=== PATIENT | female | born 1950 | race Caucasian/White ===

== ENCOUNTER → 2019-10-15 15:49 | Outpatient (BNVA) | payer MEDICARE, SELFPAY | PROVIDERS: Family Provider Family Medicine; PCP Family Medicine; Visit Provider Family Medicine | DX: K50.90 Crohn's disease, unspecified, without complications (principal); E55.9 Vitamin D deficiency, unspecified; E78.5 Hyperlipidemia, unspecified; I10 Essential (primary) hypertension | CPT/HCPCS: 80053; 80061; 82306; 84443; 85025 ==

== ENCOUNTER 2019-11-06 08:41 | Outpatient (CLI) | payer MEDICARE, SELFPAY ==
--- NOTE | 2019-11-06 08:49 | US_ITS ---
WS: [id number] ADDITIONAL VIEWS RIGHT BREAST RIGHT breast ultrasound, limited HISTORY: ABNORMAL MAMMOGRAM COMPARISON: 09/17/2019, 09/11/2018 and 09/10/2017 Compression views right CC and MLO projection. True ML also submitted. Asymmetry in the medial RIGHT breast does not persist. There is a focal area of increased density pos terior to the nipple on the MLO projection which will be further evaluated by ultrasound. RIGHT breast ultrasound, limited. Ultrasound is directed posterior to the nipple and at 3:00 and 9:00. There is dense fibroglandular ti ssue but no mass identified. US/US breast RT limited* [id number] IMPRESSION: BI-RADS: 2-Benign FOLLOW-UP: 1 Year Follow-up
== END 2019-11-06 08:42 | disposition home or self-care (01) ==
LOC: RADSHAW 08:45
PROVIDERS: Family Provider Family Medicine; PCP Family Medicine; Visit Provider Family Medicine
DX: R92.8 Other abnormal and inconclusive findings on diagnostic imaging of breast (principal)
CPT/HCPCS: 76642; 77065

== ENCOUNTER 2019-11-22 15:35 | Emergency (ER) | payer MEDICARE, SELFPAY ==
[2019-11-22 15:39] VITALS: BP 144/76; PULSE 138; RESP 16; TEMP 38.7; O2SAT 94
--- NOTE | 2019-11-22 15:49 | XR_ITS ---
WS: [id number] CHEST XRAY TECHNIQUE: Portable chest. CLINICAL INFORMATION: cough COMPARISON: None. FINDINGS: Heart: Normal cardiac silhouette. Lungs: Lungs are clear. No consolidation or pleural effusion. Moderate chronic emphysematous changes. Bones: Thoracic curve convex left. XR/XR chest 1V portable [id number] IMPRESSION: No acute chest findings
[2019-11-22 15:55] VITALS: BP 128/75; PULSE 137; RESP 18; O2SAT 95
--- NOTE | 2019-11-22 15:55 | W.ED.GENADLT ---
HPI - General Adult General: Chief complaint: Fever Stated complaint: cough Time Seen by Provider: 11/22/19 15:48 History of Present Illness: HPI narrative: Fever and body aches since yesterday. Patient says she is been exercising doing fine but started feeling bad yesterday. Is taking fluids well. Took Tylenol last night nothing today. Denies shortness of breath palpitation or heart pain. Does have a history of COPD MD complaint: Fever Onset (ago): hour(s) Associated symptoms: Reports cough and fevers/chills; Deny chest pain, dyspnea, headache(s), nausea, rash, short of breath or vomiting Review of Systems Const: Reports: fever, chills and body aches Eyes: Denies: change in vision or blurry vision ENMT: Denies: throat pain or nasal congestion Card: Denies: chest pain or shortness of breath on exertion Resp: Reports: non-productive cough; Denies: shortness of breath or productive cough GI: Denies: abdominal pain, nausea or vomiting Musc: Denies: extremity pain Skin/Breast: Denies: rash Neuro: Denies: headache Psych: Denies: anxiety or depression Moi/Lymph: Denies: easy bruising PFSH ED PFSH: Social History Smoking and tobacco status: former smoker Alcohol intake: current Alcohol intake frequency: holidays/special occasions only Physical Exam Const: COMMON NORMALS: no apparent distress, average body habitus and oriented x3 HENMT: COMMON NORMALS: normocephalic HEAD & SCALP: normal to inspection and normocephalic FACE & SINUS: normal facial exam Eye: COMMON NORMALS: conjunctivae normal GENERAL EYE: normal appearance of both eyes CONJUNCTIVA: Yes conjunctivae normal Neck/C-Spine: COMMON NORMALS: no JVD Chest: COMMONS NORMALS: inspection of chest normal Resp: COMMON NORMALS: normal respiratory effort and percussion normal AUSCULTATION: diminished lung sounds PERCUSSION: percussion normal Cardio: COMMON NORMALS: no JVD, regular rate and regular rhythm RATE: regular rate RHYTHM: regular rhythm GI: COMMON NORMALS: normal to inspection, nondistended, normoactive bowel sounds Extremity: COMMON NORMALS: normal to inspection and full ROM Neuro: COMMON NORMALS: oriented x3 Course Vital Signs: Vital signs: Vital Signs Temperature 101.7 F H 11/22/19 15:39 Pulse Rate 137 H 11/22/19 15:55 Respiratory Rate 18 11/22/19 15:55 Blood Pressure 128/75 11/22/19 15:55 Pulse Oximetry 95 11/22/19 15:55 MDM - General Adult Imaging Data^: CXR: My impression: No infiltrate seen Discharge Plan Discharge Prescriptions: No Action Dulera 200-5 mcg/actuation HFA aerosol inhaler 2 puff INHALATION BID RF: 0 mesalamine [Delzicol] 400 mg capsule (with del rel tablets) 800 mg PO TID RF: 0 atorvastatin 20 mg tablet 20 mg PO QDAY Qty: 90 RF: 2 folic acid 1 mg tablet 1 mg PO QDAY Qty: 90 RF: 2 lisinopril-hydrochlorothiazide 20-12.5 mg tablet 1 tab PO BID Qty: 180 RF: 2 metoprolol tartrate 25 mg tablet 25 mg PO QDAY Qty: 90 RF: 2 pyridostigmine bromide 60 mg tablet 60 mg PO QID Qty: 120 RF: 2 potassium chloride 20 mEq tablet extended release 20 meq PO QDAY Qty: 90 RF: 2 cholecalciferol (vitamin D3) 50,000 unit tablet 50,000 unit PO .monthly Qty: 3 RF: 3 Coding Level of Care Code ED Lithographic Proofer for Chg Fwd Exam Comprehensive
[2019-11-22] MEDS: ibuprofen 600 mg Tablet PO (16:02)
[2019-11-22] MEDS: acetaminophen 500 mg Tablet 1000 MG PO (16:02)
[2019-11-22 16:20] LABS: Influenza A by IFA Positive (Negative); Influenza B by IFA Negative (Negative)
[2019-11-22 16:34] VITALS: BP 113/66; PULSE 127; RESP 15; O2SAT 92
== END 2019-11-22 16:35 | disposition home or self-care (01) ==
PROVIDERS: Emergency Provider Nurse Practitioner Family; Family Provider Family Medicine; PCP Family Medicine
DX: R50.9 Fever, unspecified (principal); R05 Cough; Z87.891 Personal history of nicotine dependence
CPT/HCPCS: 71045; 87804; 99281; 99283

== ENCOUNTER → 2019-12-04 09:01 | Outpatient (BNVA) | payer MEDICARE, SELFPAY | PROVIDERS: Family Provider Family Medicine; PCP Family Medicine; Visit Provider Nurse Practitioner Family | DX: R05 Cough (principal); J40 Bronchitis, not specified as acute or chronic | CPT/HCPCS: 71046; 85025; 87804 ==

== ENCOUNTER → 2019-12-07 09:30 | Outpatient (BNVA) | payer MEDICARE, SELFPAY | PROVIDERS: Family Provider Family Medicine; PCP Family Medicine; Visit Provider Nurse Practitioner Family | DX: J40 Bronchitis, not specified as acute or chronic (principal) | CPT/HCPCS: 71046; 85025 ==

== ENCOUNTER → 2019-12-17 08:32 | Outpatient (BNVA) | payer MEDICARE, SELFPAY | PROVIDERS: Family Provider Family Medicine; PCP Family Medicine; Visit Provider Nurse Practitioner Family | DX: J40 Bronchitis, not specified as acute or chronic (principal); R79.89 Other specified abnormal findings of blood chemistry | CPT/HCPCS: 85025 ==

== ENCOUNTER → 2020-02-03 13:05 | Outpatient (BNVA) | payer MEDICARE, SELFPAY | PROVIDERS: Family Provider Family Medicine; PCP Family Medicine; Visit Provider Specialist | DX: G70.00 Myasthenia gravis without (acute) exacerbation (principal); R29.90 Unspecified symptoms and signs involving the nervous system; Z87.891 Personal history of nicotine dependence | CPT/HCPCS: 99213 ==

== ENCOUNTER → 2020-03-31 09:35 | Outpatient (BNVA) | payer MEDICARE, SELFPAY | PROVIDERS: Family Provider Family Medicine; PCP Family Medicine; Visit Provider Family Medicine | DX: E78.2 Mixed hyperlipidemia (principal); I10 Essential (primary) hypertension; K50.90 Crohn's disease, unspecified, without complications; J44.9 Chronic obstructive pulmonary disease, unspecified; E55.9 Vitamin D deficiency, unspecified; G70.00 Myasthenia gravis without (acute) exacerbation | CPT/HCPCS: 80053; 80061; 84443 ==

== ENCOUNTER → 2020-07-06 11:00 | Outpatient (BNVA) | payer MEDICARE, SELFPAY | PROVIDERS: Family Provider Family Medicine; PCP Family Medicine; Visit Provider Family Medicine | DX: I10 Essential (primary) hypertension (principal); G70.00 Myasthenia gravis without (acute) exacerbation; E78.2 Mixed hyperlipidemia; Z23 Encounter for immunization | CPT/HCPCS: 80053; 80061; 84443; 85025 ==

== ENCOUNTER → 2020-10-07 09:21 | Outpatient (BNVA) | payer MEDICARE, SELFPAY | PROVIDERS: Family Provider Family Medicine; PCP Family Medicine; Visit Provider Family Medicine | DX: E55.9 Vitamin D deficiency, unspecified (principal); I10 Essential (primary) hypertension; E78.2 Mixed hyperlipidemia | CPT/HCPCS: 80053; 80061; 82306; 84443; 85025 ==

== ENCOUNTER 2020-11-08 14:01 | Outpatient (CLI) | payer MEDICARE, SELFPAY ==
--- NOTE | 2020-11-08 14:30 | MM_ITS ---
WS: [id number] BILATERAL DIGITAL SCREENING MAMMOGRAPHY WITH CAD CLINICAL INFORMATION: screening HISTORY: Screening mammogram. No current complaints. COMPARISON: TECHNIQUE: Bilateral CC and MLO views. FINDINGS: The breasts are composed of heterogeneous fibroglandular density tissue, which can limit the detectio n of small underlying mass lesions. Dense right subareolar breast tissue was previously evaluated and similar in appearance over multiple prior examinations. No suspicious mass, asymmetry, calcification s, or architectural distortion. No evidence of malignancy. Vascular calcification. MM/[place] [id number] IMPRESSION: BI-RADS: 2-Benign FOLLOW UP: 1 Year Follow-up Recommend return to annual screening mammography.
== END 2020-11-08 14:02 | disposition home or self-care (01) ==
LOC: RADSHAW 14:03
PROVIDERS: PCP Family Medicine; Visit Provider Family Medicine
DX: Z12.31 Encounter for screening mammogram for malignant neoplasm of breast (principal)
CPT/HCPCS: 77067

== ENCOUNTER → 2021-01-31 11:18 | Outpatient (BNVA) | payer MEDICARE, SELFPAY | PROVIDERS: PCP Family Medicine; Visit Provider Specialist | DX: G70.00 Myasthenia gravis without (acute) exacerbation (principal); Z87.891 Personal history of nicotine dependence | CPT/HCPCS: 99212 ==

== ENCOUNTER → 2021-02-02 10:30 | Outpatient (BNVA) | payer MEDICARE, SELFPAY | PROVIDERS: PCP Family Medicine; Visit Provider Family Medicine | DX: G70.00 Myasthenia gravis without (acute) exacerbation (principal); I10 Essential (primary) hypertension; E78.2 Mixed hyperlipidemia | CPT/HCPCS: 80053; 80061; 84443 ==

== ENCOUNTER → 2021-05-03 12:07 | Outpatient (BNVA) | payer MEDICARE, SELFPAY | PROVIDERS: PCP Family Medicine; Visit Provider Family Medicine | DX: E78.2 Mixed hyperlipidemia (principal); I10 Essential (primary) hypertension | CPT/HCPCS: 80053; 80061; 85025 ==

== ENCOUNTER → 2021-08-02 11:57 | Outpatient (BNVA) | payer MEDICARE, SELFPAY | PROVIDERS: PCP Family Medicine; Visit Provider Family Medicine | DX: E78.2 Mixed hyperlipidemia (principal); I10 Essential (primary) hypertension; J44.9 Chronic obstructive pulmonary disease, unspecified; R60.9 Edema, unspecified | CPT/HCPCS: 80053; 80061; 84443; 85025 ==

== ENCOUNTER → 2021-11-16 09:40 | Outpatient (BNVA) | payer MEDICARE, SELFPAY | PROVIDERS: PCP Family Medicine; Visit Provider Family Medicine | DX: E55.9 Vitamin D deficiency, unspecified (principal); E78.5 Hyperlipidemia, unspecified; I10 Essential (primary) hypertension | CPT/HCPCS: 80053; 80061; 82306; 85025 ==

== ENCOUNTER → 2021-12-07 00:01 | Outpatient (BNVA) | payer MEDICARE, SELFPAY | PROVIDERS: PCP Family Medicine; Visit Provider Family Medicine | DX: K50.90 Crohn's disease, unspecified, without complications (principal); Z12.31 Encounter for screening mammogram for malignant neoplasm of breast; I10 Essential (primary) hypertension; E87.5 Hyperkalemia | CPT/HCPCS: 80048 ==

== ENCOUNTER 2022-01-11 13:39 | Outpatient (CLI) | payer MEDICARE, SELFPAY ==
--- NOTE | 2022-01-11 14:09 | MM_ITS ---
WS: [id number] BILATERAL 3D TOMOSYNTHESIS DIGITAL SCREENING MAMMOGRAPHY WITH CAD CLINICAL INFORMATION: Z12.31 - Encounter for screening mammogram for malignant ... HISTORY: Screening mammogram. No current complaints. COMPARISON: November 08, 2020 TECHNIQUE: Bilateral CC and MLO views. FINDINGS: Scattered fibroglandular densities bilaterally. A few tiny incidental punctate calcifications. No grayson picious focal mass, asymmetry, calcifications, or architectural distortion. No evidence of malignancy . MM/[place] [id number] IMPRESSION: BI-RADS: 2-Benign FOLLOW UP: 1 Year Follow-up Recommend return to annual screening mammography.
== END 2022-01-11 13:40 | disposition home or self-care (01) ==
LOC: RAD 13:42
PROVIDERS: PCP Family Medicine; Visit Provider Family Medicine
DX: Z12.31 Encounter for screening mammogram for malignant neoplasm of breast (principal)
CPT/HCPCS: 77063; 77067

== ENCOUNTER → 2022-01-30 13:25 | Outpatient (BNVA) | payer MEDICARE, SELFPAY | PROVIDERS: PCP Family Medicine; Visit Provider Specialist | DX: G70.00 Myasthenia gravis without (acute) exacerbation (principal); J44.9 Chronic obstructive pulmonary disease, unspecified | CPT/HCPCS: 99214 ==

== ENCOUNTER 2022-02-14 07:56 | Emergency (ER) | payer MEDICARE, SELFPAY ==
[2022-02-14 08:15] VITALS: BP 127/45; PULSE 88; RESP 14; TEMP 36.7; O2SAT 99; BMI 21.4
[2022-02-14 08:26] VITALS: BP 127/45; PULSE 88; RESP 14; TEMP 36.7; O2SAT 99
--- NOTE | 2022-02-14 08:31 | ED_ITS ---
HPI - Wound/Laceration General: Chief Complaint: Wound/Laceration Stated Complaint: Fall Time Seen by Provider: 02/14/22 08:07 Source: patient Mode of arrival: ambulatory Limitations: no limitations History of Present Illness: 71-year-old female who presents to the emergency room after stumbling and falling outside at home she caught her left forearm as she went down has shallow skin tear partial-thickness laceration. She denies striking her head she not lose consciousness she has full use of her arm and shoulder says her shoulder feels little bruised but was able to pick herself up and move. She denies any other injuries. Onset (ago): minute(s) Extremity Location: Left: forearm Place: home Patient tetanus UTD: No Context: fall (Mechanical ground-level fall) Associated symptoms: Denies chills, fever(s), inability to move, nausea, numbness, pain, syncope or vomiting Review of Systems Const: Denies: fever(s), chills, body aches, change in appetite, fatigue or malaise ENMT: Denies: throat pain, ear or mastoid pain, nasal discharge or nasal congestion Card: Denies: syncope Resp: Denies: dyspnea, productive cough or non-productive cough GI: Denies: nausea or vomiting : Denies: flank pain, difficulty voiding, dysuria, urinary frequency or urinary urgency Skin/Breast: Denies: rash or pruritus PFSH ED PFSH: Medical History (Updated 02/14/22 @ 08:29 by Jf Krishnan DO) COPD (chronic obstructive pulmonary disease) Crohn's disease Hyperlipidemia Hypertension Myasthenia gravis Post-menopause Surgical History H/O oophorectomy History of hysterectomy Family History Other CAD (coronary artery disease) Social History Smoking and tobacco status: never smoked Alcohol intake: current Alcohol intake frequency: holidays/special occasions only Lives independently: Yes Housing: House Current occupational status: retired History of recent travel: No Current gender identity: Female Physical Exam Const: COMMON NORMALS: no acute distress GENERAL APPEARANCE: cooperative a nd comfortable ORIENTATION/CONSCIOUSNESS: Yes awake, Yes oriented to person, Yes oriented to place and Yes oriented to time HENMT: COMMON NORMALS: normocephalic, atraumatic and hearing grossly normal bilaterally HEAD & SCALP: normocephalic and atraumatic Neck/C-Spine: COMMON NORMALS: no JVD Resp: COMMON NORMALS: normal respiratory effort, No retractions, No use of accessory muscles and clear to auscultation bilaterally AUSCULTATION: clear to auscultation bilaterally Cardio: COMMON NORMALS: no JVD, regular rate, regular rhythm and No murmurs present (Cardio) RATE: regular rate RHYTHM: regular rhythm GI: COMMON NORMALS: Soft to palpation and No hepatosplenomegaly present AUSCULTATION: Yes normoactive bowel sounds PALPATION: Yes Soft to palpation, No Tenderness to palpation present (GI), No Guarding due to palpation present (GI) and Yes No hepatosplenomegaly present Extremity: COMMON NORMALS: normal to inspection, capillary refill normal, no clubbing, cyanosis or edema, no calf tenderness and no pedal edema Neuro: SENSORIUM/ORIENTATION: Yes oriented to person, Yes oriented to place and Yes oriented to time Skin: OTHER: Forearm laceration skin tears on the ulnar ridge of the left forearm. These were cleaned with normal saline and flushed and then closed with Steri-Strips good approximation of wound edges prepped. 10 cm total length of skin tear and partial-thickness laceration Course Vital Signs: Vital signs: Vital Signs Temperature 98.0 F 02/14/22 08:26 Pulse Rate 88 02/14/22 08:26 Respiratory Rate 14 02/14/22 08:26 Blood Pressure 127/45 02/14/22 08:26 Pulse Oximetry 99 02/14/22 08:26 MDM - Wound/Laceration Medical Decision Making Wound care instructions given. Keep Steri-Strips clean and dry for 5 days. Apply topical ointment as needed. Medical Records I reviewed the patient's medical records. Lab Data I reviewed the patient's lab results. Discharge Plan Discharge Patient Disposition: Home Clinical Impression: Laceration Condition: Stable Prescriptions: No Action calcium carbonate 600 mg calcium (1,500 mg) tablet 600 mg PO DAILY 0RF albuterol sulfate [ProAir HFA] 90 mcg/actuation HFA aerosol inhaler 2 puff INHALATION Q6H PRN (Reason: shortness of breath or wheezing) Qty: 8.5 1RF diclofenac sodium [Voltaren] 1 % gel 2 g topical QID Qty: 100 0RF Rx Instructions: apply to wrist bilaterally methylprednisolone [Medrol (Ash)] 4 mg tablets,dose pack See Rx Instructions PO PER PKG DIR Qty: 21 0RF Rx Instructions: PO PER PKG DIR krill oil 500 mg capsule 500 mg PO DAILY Qty: 90 4RF lisinopril-hydrochlorothiazide 20-12.5 mg tablet 1 tab PO BID Qty: 180 2RF folic acid 1 mg tablet See Rx Instructions .ROUTE .COMPLEX Qty: 90 2RF Dose Instruction: TAKE ONE TABLET BY MOUTH EVERY DAY Rx Instructions: TAKE ONE TABLET BY MOUTH EVERY DAY metoprolol tartrate 25 mg tablet See Rx Instructions .ROUTE .COMPLEX Qty: 90 2RF Dose Instruction: TAKE ONE TABLET BY MOUTH EVERY DAY Rx Instructions: TAKE ONE TABLET BY MOUTH EVERY DAY Dulera 200-5 mcg/actuation HFA aerosol inhaler See Rx Instructions .ROUTE .COMPLEX Qty: 13 5RF Dose Instruction: inhale TWO puffs itno lungs TWICE DAILY Rx Instructions: inhale TWO puffs itno lungs TWICE DAILY atorvastatin 20 mg tablet See Rx Instructions .ROUTE .COMPLEX Qty: 90 2RF Dose Instruction: TAKE ONE TABLET BY MOUTH EVERY DAY Rx Instructions: TAKE ONE TABLET BY MOUTH EVERY DAY mesalamine 1.2 gram tablet,delayed release (DR/EC) See Rx Instructions .ROUTE .COMPLEX Qty: 128 2RF Dose Instruction: TAKE ONE TABLET BY MOUTH TWICE DAILY Rx Instructions: TAKE ONE TABLET BY MOUTH TWICE DAILY triamterene-hydrochlorothiazid 75-50 mg tablet See Rx Instructions .ROUTE .COMPLEX Qty: 30 2RF Dose Instruction: TAKE ONE TABLET BY MOUTH EVERY DAY Rx Instructions: TAKE ONE TABLET BY MOUTH EVERY DAY pyridostigmine bromide 60 mg tablet 60 mg PO TID 90 Days Qty: 270 3RF cholecalciferol (vitamin D3) 1,250 mcg (50,000 unit) capsule See Rx Instructions .ROUTE .COMPLEX Qty: 3 3RF Dose Instruction: TAKE ONE CAPSULE BY MOUTH monthly Rx Instructions: TAKE ONE CAPSULE BY MOUTH monthly Discharge Orders: Discharge ED (Routine); Ordered 02/14/22 Ordered By: Jf Krishnan Referrals: Ariadna Cruz MD [Primary Care Provider] - Discharge Diet: Usual diet Discharge Activity: Resume usual activity Patient Instructions: Steristrips (ED), Opioid Safety Activity Restrictions/Additional Instructions: Keep wound clean and dry for the next 5 days. Coding Level of Care Code ED Wearing Apparel Folder for Jeny Singh
[2022-02-14] MEDS: tetanus-diphtheria tox (adult) 0.5 mL SDV IM (08:57)
[2022-02-14 09:16] VITALS: BP 99/59; PULSE 79; RESP 16; O2SAT 94
== END 2022-02-14 09:15 | disposition home or self-care (01) ==
PROVIDERS: Emergency Provider Family Medicine; PCP Family Medicine
DX: S51.812A Laceration without foreign body of left forearm, initial encounter (principal); W01.0XXA Fall on same level from slipping, tripping and stumbling without subsequent striking against object, initial encounter; Z23 Encounter for immunization
CPT/HCPCS: 90471; 90714; 99282

== ENCOUNTER 2022-02-26 12:45 | Observation (INO) | payer MEDICARE, SELFPAY ==
[2022-02-26] VITALS (8 sets, daily range): BP systolic 83–135; BP diastolic 51–69; PULSE 65–99; RESP 16–18; TEMP 36.5–36.9; O2SAT 91–98; BMI 21.3
--- NOTE | 2022-02-26 13:11 | ED_ITS ---
HPI - General Adult General: Chief complaint: General Medical Stated complaint: Poss rx to antibiotics, D/N Time Seen by Provider: 02/26/22 13:05 History of Present Illness: Patient is a 71-year-old female with history of Crohn's disease on mesalamine presents the emergency room with concerns of diarrhea x2 days. Patient recently was started on Keflex for left arm laceration. Since 2 days ago, patient has had increased diarrhea. Patient denies any blood in the stool or melena/hematochezia. She has been complaints currently on D5 Keflex. Patient's left arm laceration appears to be well- healing. Patient has any fever chills, abdominal complaints, nausea/vomiting, chest pain, shortness breath palpitation, complaints, or other issues at this time. Onset:2 days ago Duration:2 days Location:home Severity:moderate Associated symptoms: Deny chest pain, dyspnea, nausea, rash, palpitations or vomiting Review of Systems Const: Denies: fever(s) or chills Eyes: Denies: change in vision ENMT: Denies: mouth pain Card: Denies: chest pain or palpitations Resp: Denies: dyspnea or non-productive cough GI: Reports: diarrhea; Denies: abdominal pain, nausea or vomiting : Denies: dysuria Musc: Denies: extremity pain Skin/Breast: Denies: rash or new lesions Neuro: Denies: weakness in extremities Psych: Reports: other (Normal mood) Moi/Lymph: Denies: easy bruising PFSH ED PFSH: Medical History (Updated 02/27/22 @ 14:21 by Mehdi Hoyt MD) COPD (chronic obstructive pulmonary disease) Crohn's disease Hyperlipidemia Hypertension Myasthenia gravis Post-menopause Surgical History H/O oophorectomy History of hysterectomy Family History Other CAD (coronary artery disease) Social History (Updated 02/26/22 @ 16:08 by Mehdi Hoyt MD) Smoking and tobacco status: former smoker Alcohol intake: current Alcohol intake frequency: holidays/special occasions only Lives independently: Yes Housing: House Current occupational status: retired 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 History of recent travel: No Current gender identity: Female Physical Exam Const: COMMON NORMALS: alert HENMT: COMMON NORMALS: atraumatic HEAD & SCALP: atraumatic MOUTH: moist mucous membranes not abnormal Eye: COMMON NORMALS: EOMs intact bilaterally and conjunctivae normal CONJUNCTIVA: Yes conjunctivae normal Neck/C-Spine: COMMON NORMALS: full ROM and supple Resp: COMMON NORMALS: normal respiratory effort and clear to auscultation bilaterally AUSCULTATION: clear to auscultation bilaterally Cardio: COMMON NORMALS: regular rate RATE: regular rate GI: COMMON NORMALS: Soft to palpation and non-tender PALPATION: Yes Soft to palpation OTHER: No focal TTP. NO guarding rebound, guarding, rigidity. No CVA tenderness to percussion. Neg Gupta/Neg McBurney's point tenderness, no suprabupic tenderness to palpation. Extremity: COMMON NORMALS: full ROM Neuro: SENSORIUM/ORIENTATION: Yes alert MOTOR EXAM: No Abnormal motor strength present and Other motor observations present (no focal motor deficits) Psych: COMMON NORMALS: speech normal SPEECH: Yes normal speech MOOD & AFFECT: Yes euthymic mood Course Vital Signs: Vital signs: Vital Signs Temperature 97.7 F 02/28/22 11:25 Pulse Rate 70 02/28/22 11:25 Respiratory Rate 17 02/28/22 11:25 Blood Pressure 113/77 02/28/22 11:25 Pulse Oximetry 95 02/28/22 11:25 [facility] - General Adult Medical Decision Making 71-year-old female with history of Crohn's disease on mesalamine presenting to the emergency room with complaints of diarrhea x2-day after starting Keflex on day 5 currently. On physical exam, patient is hemodynamically stable with no focal tenderness to palpation. Patient received 1 L fluid and GI cocktail reports symptomatic improvement. Lab showed white count of 25.7K. CT scan showed colitis. This is concerning for possible C. difficile colitis versus acute Crohn's flare. Will give antibiotics empirically with cefepime and metronidazole for coverage of C. difficile and acute colitis. Patient is noted to have creatinine of 2.4 up from baseline of 1. Lab Data : 02/28/22 04:59 02/28/22 04:59 Radiology Impressions Abdomen/Pelvis CT 02/26/22 14:11 IMPRESSION: Fat stranding around the colon representing colitis. Laboratory Results WBC 25.7 10^3/uL (4.0-10.0) H 02/26/22 13:39 RBC 3.62 10^6/uL (4.1-5.3) L 02/26/22 13:39 Hgb 11.4 g/dL (11.5-15.3) L 02/26/22 13:39 Hct 33.7 % (37.0-47.0) L 02/26/22 13:39 MCV 93.1 fl (81-99) 02/26/22 13:39 MCH 31.5 pg (28.0-34.0) 02/26/22 13:39 MCHC 33.8 g/dL (30.0-36.0) 02/26/22 13:39 RDW 13.6 % (12.1-15.1) 02/26/22 13:39 Plt Count 347 10^3/cmm (130-400) 02/26/22 13:39 MPV 10.0 fL (7.4-10.4) 02/26/22 13:39 Neut % (Auto) 88.7 % 02/26/22 13:39 Lymph % (Auto) 5.8 % 02/26/22 13:39 Whitfield % (Auto) 4.2 % 02/26/22 13:39 Eos % (Auto) 0.2 % 02/26/22 13:39 Baso % (Auto) 0.4 % 02/26/22 13:39 Neut # (Auto) 22.80 10^3/uL (1.8-7.7) H 02/26/22 13:39 Lymph # (Auto) 1.5 10^3/uL (0.8-4.8) 02/26/22 13:39 Whitfield # (Auto) 1.1 10^3/uL (0.2-0.9) H 02/26/22 13:39 Eos # (Auto) 0.0 10^3/uL (0.0-0.8) 02/26/22 13:39 Baso # (Auto) 0.1 10^3/uL (0.0-0.1) 02/26/22 13:39 Nucleated RBC % (auto) 0 % 02/26/22 13:39 Nucleated RBCs # 0.0 /100WBC 02/26/22 13:39 Sodium 133 mmol/L (136-145) L 02/26/22 13:39 Potassium 3.5 mmol/L (3.5-5.1) 02/26/22 13:39 Chloride 97 mmol/L (98-107) L 02/26/22 13:39 Carbon Dioxide 20 mmol/L (22-29) L 02/26/22 13:39 Anion Gap 19.5 (5-19) H 02/26/22 13:39 BUN 43 mg/dL (8-23) H 02/26/22 13:39 Creatinine 2.4 mg/dL (0.5-0.9) H 02/26/22 13:39 GFR Calculation 20.0 mL/min (90-130) L 02/26/22 13:39 Glucose 120 mg/dL (65-115) H 02/26/22 13:39 Calculated Osmolality 288 mOsm/kg (285-295) 02/26/22 13:39 Calcium 8.9 mg/dL (8.5-10.5) 02/26/22 13:39 Total Bilirubin 0.4 mg/dL (0.15-1.2) 02/26/22 13:39 AST 29 U/L (0-32) 02/26/22 13:39 ALT 11 U/L (0-33) 02/26/22 13:39 Alkaline Phosphatase 88 IU/L (35-105) 02/26/22 13:39 Total Protein 8.0 g/dL (6.6-8.7) 02/26/22 13:39 Albumin 4.2 g/dL (3.5-5.2) 02/26/22 13:39 Globulin 3.8 g/dL (1.3-4.6) 02/26/22 13:39 Lipase 15 U/L (13-60) 02/26/22 13:39 Imaging Data Other Imaging: Radiologist's impression: [address] [address] [address] Scan Report Signed Patient: Darling Gonzalez Unit #: [id number] : 1950 Age/Sex: 71 / F ADM Date: 02/26/22 Loc: ER Room/Bed: Attending Dr: Ordering Provider/Ordering MD: Yumiko Benitez MD Date of Service: 02/26/22 Procedure(s): CT abdomen pelvis wo con [id number] Accession Number(s): [id number] Report Number: [id number] PROCEDURE INFORMATION: Exam: CT Abdomen And Pelvis Without Contrast Exam date and time: 02/26/2022 2:39 PM Age: 71 years old Clinical indication: Nausea and other: Diahrrea; Additional info: Diarrhea, significant leukocytosis TECHNIQUE: Imaging protocol: Computed tomography of the abdomen and pelvis without contrast. Radiation optimization: All CT scans at this facility use at least one of these dose optimization techniques: automated exposure control; mA and/or kV adjustment per patient size (includes targeted exams where dose is matched to clinical indication); or iterative reconstruction. COMPARISON: CR XR chest 2V* [id number] 12/07/2019 9:38 AM RADIATION DOSE METRICS: Total DLP (mGy-cm): 810.71 FINDINGS: Lungs: Emphysematous changes at the visualized lung bases. Diaphragm: Small hiatal hernia. Liver: Normal. No mass. Gallbladder and bile ducts: Normal. No calcified stones. No ductal dilation. Pancreas: Normal. No ductal dilation. Spleen: Normal. No splenomegaly. Adrenal glands: Normal. No mass. Kidneys and ureters: Normal. No hydronephrosis. Stomach and bowel: Unremarkable. No obstruction. No mucosal thickening. Appendix: No evidence of appendicitis. Intraperitoneal space: Unremarkable. No free air. No significant fluid collection. Vasculature: Unremarkable. No abdominal aortic aneurysm. Lymph nodes: Unremarkable. No enlarged lymph nodes. Urinary bladder: Unremarkable as visualized. Reproductive: Unremarkable as visualized. Bones/joints: Degenerative changes of the spine. Soft tissues: Unremarkable. CT/CT abdomen pelvis wo con [id number] IMPRESSION: Fat stranding around the colon representing colitis. ? Dictated By: Fan Melton MD Signed By: Fan Melton MD Signed Date/Time: 02/26/22 1518 DD/ 1439 Discharge Plan Discharge Patient Disposition: Admitted As Inpatient Admit Provider: Mehdi Hoyt Clinical Impression: Diarrhea, Colitis, Leukocytosis Condition: Stable Discharge Diet: Advance as tolerated Discharge Activity: Increase activity as tolerated Coding Level of Care Code ED Canvas Baster Jumpbasting for Chg Fwd Exam Comprehensive
[2022-02-26] MEDS: lidocaine 2% viscous 15 ML, aluminum-mag hydrox-simethicon 30 ML, sucralfate oral liq 1 GM PO (13:30)
[2022-02-26] MEDS: sodium chloride 0.9% 1,000 ML 999 ML IV (13:38)
[2022-02-26 13:49] LABS: Basophils # 0.1 10^3/uL (0.0-0.1); Basophils % 0.4 %; Eosinophils % 0.2 %; Hematocrit 33.7 % (37.0-47.0); Hemoglobin 11.4 g/dL (11.5-15.3); Lymphocytes # 1.5 10^3/uL (0.8-4.8); Lymphocytes % 5.8 %; Mean Corpuscular HGB Conc 33.8 g/dL (30.0-36.0); Mean Corpuscular Hemoglobin 31.5 pg (28.0-34.0); Mean Corpuscular Volume 93.1 fl (81-99); Monocytes # 1.1 10^3/uL (0.2-0.9); Monocytes % 4.2 %; Neutrophils % 88.7 %; Nucleated Red Blood Cells % 0 %; Platelet Count 347 10^3/cmm (130-400); Red Blood Count 3.62 10^6/uL (4.1-5.3); Red Cell Distribution Width 13.6 % (12.1-15.1); White Blood Count 25.7 10^3/uL (4.0-10.0)
[2022-02-26 14:10] LABS: Alanine Aminotransferase 11 U/L (0-33); Albumin Level 4.2 g/dL (3.5-5.2); Alkaline Phosphatase 88 IU/L (35-105); Anion Gap 19.5 (5-19); Aspartate Amino Transferase 29 U/L (0-32); Blood Urea Nitrogen 43 mg/dL (8-23); Calcium 8.9 mg/dL (8.5-10.5); Carbon Dioxide 20 mmol/L (22-29); Chloride 97 mmol/L (98-107); Globulin 3.8 g/dL (1.3-4.6); Glucose 120 mg/dL (65-115); Lipase 15 U/L (13-60); Osmolality Calculated 288 mOsm/kg (285-295); Potassium 3.5 mmol/L (3.5-5.1); Sodium 133 mmol/L (136-145); Total Bilirubin 0.4 mg/dL (0.15-1.2)
--- NOTE | 2022-02-26 14:11 | CTR_ITS ---
PROCEDURE INFORMATION: Exam: CT Abdomen And Pelvis Without Contrast Exam date and time: 02/26/2022 2:39 PM Age: 71 years old Clinical indication: Nausea and other: Diahrrea; Additional info: Diarrhea, significant leukocytosis TECHNIQUE: Imaging protocol: Computed tomography of the abdomen and pelvis without contrast. Radiation optimization: All CT scans at this facility use at least one of these dose optimization techniques: automated exposure control; mA and/or kV adjustment per patient size (includes targeted exams where dose is matched to clinical indication); or iterative reconstruction. COMPARISON: CR XR chest 2V* [id number] 12/07/2019 9:38 AM RADIATION DOSE METRICS: Total DLP (mGy-cm): 810.71 FINDINGS: Lungs: Emphysematous changes at the visualized lung bases. Diaphragm: Small hiatal hernia. Liver: Normal. No mass. Gallbladder and bile ducts: Normal. No calcified stones. No ductal dilation. Pancreas: Normal. No ductal dilation. Spleen: Normal. No splenomegaly. Adrenal glands: Normal. No mass. Kidneys and ureters: Normal. No hydronephrosis. Stomach and bowel: Unremarkable. No obstruction. No mucosal thickening. Appendix: No evidence of appendicitis. Intraperitoneal space: Unremarkable. No free air. No significant fluid collection. Vasculature: Unremarkable. No abdominal aortic aneurysm. Lymph nodes: Unremarkable. No enlarged lymph nodes. Urinary bladder: Unremarkable as visualized. Reproductive: Unremarkable as visualized. Bones/joints: Degenerative changes of the spine. Soft tissues: Unremarkable. CT/CT abdomen pelvis wo con [id number] IMPRESSION: Fat stranding around the colon representing colitis.
[2022-02-26] MEDS: cefepime 1,000 MG in sodium chloride 0.9% (plus) 50 ML 100 MG IV (14:49)
[2022-02-26] MEDS: metroNIDAZOLE IV 500 MG/100 ML PREMIX 100 MG IV (15:04)
--- NOTE | 2022-02-26 16:02 | P.HP_ITS ---
Providers/Chief Complaint Admitting Physician: Mehdi Hoyt MD Primary Care Provider: Ariadna Cruz MD Chief Complaint: Poss rx to antibiotics, D/N History of Present Illness Darling Gonzalez is a 71 year old female who presents to the ER with diarrhea starting 2 days ago. She has been taking Imodium liquid and took extra dose so that she could come here from [facility] 40 minutes without missing her car up. Patient states that last week 02/21/2022 she had fallen and suffered struck to a laceration on her arm. Which had gotten infected. She was treated with Rocephin and Keflex. Last 2 days she has had bad diarrhea. Patient has a history of Crohn's as well as diverticulitis and takes mesalamine. Patient is retired. She has a new doctor in [place] who doubled her mesalamine due to diarrhea diarrhea became much worse after she started the antibiotics. She wants full code Review of Systems Narrative: General no fevers chills Cardiovascular no chest pain Respiratory no shortness of breath cough wheezing GI positive for nausea she is also had diarrhea with yellow mucousy stool negative APPEALS REPRESENTATIVE negative Heme negative Skin she felt like her left arm was not getting better but doctor told her it looks good. Psych negative Medications/Allergies Home Medications Medication Instructions Recorded Confirmed Last Taken Type albuterol sulfate 90 mcg/actuation 2 puff INHALATION Q6H PRN #8.5 gm 06/09/20 02/21/22 Unknown Rx aerosol inhaler (ProAir HFA) krill oil 500 mg capsule 500 mg PO DAILY #90 cap 11/03/20 02/21/22 Unknown Rx lisinopril 20 1 tab PO BID #180 tab 06/09/21 02/21/22 Unknown Rx mg-hydrochlorothiazide 12.5 mg tablet mometasone-formoterol HFA 200 See Rx Instructions .ROUTE 09/15/21 02/21/22 Unknown Rx mcg-5 mcg/actuation aerosol .COMPLEX #13 g inhaler (Dulera) pyridostigmine bromide 60 mg tablet 60 mg PO TID 90 Days #270 tab 11/22/21 02/21/22 Unknown Rx calcium carbonate 600 mg calcium 600 mg PO DAILY 12/07/21 02/21/22 Unknown Hi story (1,500 mg) tablet cephalexin 500 mg capsule 500 mg PO BID 10 Days #20 cap 02/21/22 02/21/22 Unknown Rx acetaminophen 500 mg tablet 500 mg PO Q6H PRN 5 Days #20 tab 02/26/22 Unknown Rx atorvastatin 20 mg tablet 20 mg PO DAILY 02/26/22 02/26/22 Unknown History calcium carbonate 1,000 1 tab PO TID PRN 7 Days #21 tab 02/26/22 Unknown Rx mg-simethicone 60 mg chewable tablet (Maalox Advanced) cholecalciferol (vitamin D3) 1,250 1,250 mcg PO Q30D 02/26/22 02/26/22 Unknown History mcg (50,000 unit) capsule famotidine 20 mg tablet (Pepcid) 20 mg PO BID PRN 10 Days #20 tab 02/26/22 Unknown Rx folic acid 1 mg tablet 1 mg PO DAILY 02/26/22 02/26/22 Unknown History mesalamine 1.2 gram tablet,delayed 1.2 g PO BID 02/26/22 02/26/22 02/26/22 History release metoprolol tartrate 25 mg tablet 25 mg PO DAILY 02/26/22 02/26/22 Unknown History ondansetron 4 mg disintegrating 4 mg PO TID PRN 4 Days #12 tab 02/26/22 Unknown Rx tablet triamterene 75 1 tab PO DAILY 02/26/22 02/26/22 Unknown History mg-hydrochlorothiazide 50 mg tablet Allergies Allergy/AdvReac Type Severity Reaction Status Date / Time Influenza Virus Vaccines Allergy Intermediate Numbness Verified 02/26/22 16:08 niacin AdvReac Intermediate hives,itching, Verified 02/26/22 16:08 ankle swelling PFSH Acute PFSH: Medical History (Updated 02/26/22 @ 14:31 by Yumiko Benitez MD) COPD (chronic obstructive pulmonary disease) Crohn's disease Hyperlipidemia Hypertension Myasthenia gravis Post-menopause Surgical History H/O oophorectomy History of hysterectomy Family History Other CAD (coronary artery disease) Social History (Updated 02/26/22 @ 16:08 by Mehdi Hoyt MD) Smoking and tobacco status: former smoker Alcohol intake: current Alcohol intake frequency: holidays/special occasions only Lives independently: Yes Housing: House Current occupational status: retired Previous occupational history: 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 History of recent travel: No Current gender identity: Female Vitals/I&O/Wt Last Vital Signs Temp 98.0 F 02/26/22 12:54 Pulse 85 02/26/22 15:07 Resp 16 02/26/22 15:07 BP 107/69 02/26/22 15:07 Pulse Ox 94 02/26/22 15:07 Weight last 48 hrs Weight 54.431 kg Physical Exam Narrative: General well-developed well-nourished female in no acute cardiopulmonary stress she is alert already pleasant CV regular rate and rhythm Lungs clear to auscultation bilaterally Abdomen positive bowel sounds soft no rebound tenderness no peritoneal signs Calves no tenderness cords pedal edema Skin her left arm with a shallow ulceration mild granulation tissue Data : 02/26/22 13:39 02/26/22 13:39 Micro: Microbiology 02/26/22 14:19 Blood Culture - Preliminary Blood SPECIMEN COLLECTED 02/26/22 14:24 Blood Culture - Preliminary Blood SPECIMEN COLLECTED A&P Assessment and plan (1) Diarrhea: Patient with history of Crohn's and now diarrhea with elevated white count suspicious for C. difficile colitis. Patient took large doses of Imodium so has not been able to give a stool. She will be observed overnight with IV fluid metronidazole and cefepime as started by Dr. Benitez. Status: Acute (2) Colitis: CT scan shows colitis but no abscess patient reports history of colonoscopy 2 years ago. She has history of polyps and gets repeat to do colonoscopies for precancer but not cancer Status: Acute (3) Leukocytosis: As above Status: Acute (4) COPD (chronic obstructive pulmonary disease): Stable breathing is stable currently. She quit smoking 20 years ago after smoking 2 packs a day for 30 years Status: Acute Qualifiers: COPD type: unspecified COPD Qualified Code(s): J44.9 - Chronic obst ructive pulmonary disease, unspecified (5) Crohn's disease: Continue mesalamine. Add probiotic Status: Acute Qualifiers: Gastrointestinal tract location: unspecified location Digestive disease complication type: without complication Qualified Code(s): K50.90 - Crohn's disease, unspecified, without complications Attestations Medical Necessity Statement*: Patient is placed in to observation for IV fluids and stool testing. Repeat labs in the morning. Continue metronidazole and cefepime Time Spent in Patient Care: Greater than 35 minutes 55 minutes spent in evaluation coronation care for this patient today Coding Level of Care Code Acute Sales Appointment Coordinator for [facility] Fwd Diagnoses Diarrhea R19.7 Colitis K52.9 Leukocytosis D72.829 COPD (chronic obstructive pulmonary disease) J44.9 COPD type: unspecified COPD Crohn's disease K50.90 Gastrointestinal tract location: unspecified location Digestive disease complication type: without complication
[2022-02-26 16:54] LABS: Bilirubin Urine Neg (Negative); Blood Urine Trace (Negative); Glucose Urine UA Norm (Normal); Ketones Urine Negative (Negative); Leukocyte Esterase Urine Negative (Negative); Nitrate Urine Negative (Negative); Protein Urine Neg (Negative); Specific Gravity, Urine 1.015 (1.005-1.030); Urine Appearance Clear (CLEAR); Urine Color Yellow (Yellow); Urobilinogen Urine Norm (Negative); pH Urine 5 (5-7)
[2022-02-26 16:55] LABS: Add Urine Culture? No; Add Urine Microscopic? YES; Bacteria Urine 1+ /hpf; RBC Urine RARE /hpf (0-2); WBC Urine 0-4 /hpf (0-5)
[2022-02-26] MEDS: sodium chlor 0.9% + KCl 20 mEq 20 MEQ/1,000 ML BAG 150 MEQ IV (17:39)
[2022-02-26] MEDS: pyridostigmine 60 mg Tablet PO (20:38)
[2022-02-27] VITALS (8 sets, daily range): BP systolic 114–145; BP diastolic 63–81; PULSE 72–95; RESP 16–19; TEMP 36.4–36.6; O2SAT 93–98
[2022-02-27] MEDS: metroNIDAZOLE IV 500 MG/100 ML PREMIX 100 MG IV ×2 (00:02→06:38)
[2022-02-27] MEDS: sodium chlor 0.9% + KCl 20 mEq 20 MEQ/1,000 ML BAG 150 MEQ IV ×4 (01:09→19:35)
[2022-02-27 05:32] LABS: Basophils # 0.1 10^3/uL (0.0-0.1); Basophils % 0.4 %; Eosinophils # 0.1 10^3/uL (0.0-0.8); Eosinophils % 0.9 %; Hematocrit 30.4 % (37.0-47.0); Hemoglobin 9.9 g/dL (11.5-15.3); Lymphocytes # 1.4 10^3/uL (0.8-4.8); Lymphocytes % 9.7 %; Mean Corpuscular HGB Conc 32.6 g/dL (30.0-36.0); Mean Corpuscular Hemoglobin 30.9 pg (28.0-34.0); Mean Platelet Volume 9.8 fL (7.4-10.4); Monocytes % 7.4 %; Neutrophils # 11.24 10^3/uL (1.8-7.7); Neutrophils % 80.9 %; Nucleated Red Blood Cells % 0 %; Platelet Count 277 10^3/cmm (130-400); Red Cell Distribution Width 13.7 % (12.1-15.1); White Blood Count 13.9 10^3/uL (4.0-10.0)
[2022-02-27 05:44] LABS: Magnesium 2.2 mg/dL (1.7-2.3)
[2022-02-27 05:45] LABS: Alanine Aminotransferase 8 U/L (0-33); Albumin Level 2.9 g/dL (3.5-5.2); Alkaline Phosphatase 65 IU/L (35-105); Anion Gap 11.4 (5-19); Aspartate Amino Transferase 18 U/L (0-32); Blood Urea Nitrogen 24 mg/dL (8-23); Calcium 7.7 mg/dL (8.5-10.5); Carbon Dioxide 19 mmol/L (22-29); Chloride 108 mmol/L (98-107); Globulin 2.6 g/dL (1.3-4.6); Glomerular Filtration Rate 44.4 mL/min (90-130); Glucose 94 mg/dL (65-115); Osmolality Calculated 284 mOsm/kg (285-295); Potassium 3.4 mmol/L (3.5-5.1); Sodium 135 mmol/L (136-145); Total Bilirubin 0.2 mg/dL (0.15-1.2); Total Protein 5.5 g/dL (6.6-8.7)
[2022-02-27] MEDS: pyridostigmine 60 mg Tablet PO ×3 (08:21→19:35)
[2022-02-27] MEDS: calcium carbonate 500 mg Chew Tablet PO (08:22)
[2022-02-27] MEDS: metoprolol tartrate 25 mg Tablet PO (08:22)
--- NOTE | 2022-02-27 14:18 | PM.PN ---
Subjective Subjective: Patient states stooling has slowed down with only 1 stool today. She denies blood in the stool. She is making lots of urine. Denies abdominal pain or fever. Vitals/I&O/Wt Last Vital Signs Temp 97.6 F 02/27/22 12:07 Pulse 78 02/27/22 12:07 Resp 18 02/27/22 12:07 BP 116/67 02/27/22 12:07 Pulse Ox 93 02/27/22 12:07 02/26/22 02/27/22 02/27/22 22:59 06:59 14:59 Intake Total 340 / 340 1100 / 1440 1939 Output Total 400 / 400 Balance -60 / -60 1100 / 1040 1939 Weight last 48 hrs Weight 56.064 kg Weight 56.302 kg Weight 54.431 kg Physical Exam Narrative: General well-developed well-nourished female in no acute cardiopulmonary stress she is alert oriented pleasant CV regular rate and rhythm Lungs clear to auscultation bilaterally Abdomen positive bowel sounds soft nontender Calves noted tenderness cords or pretibial edema Mentation mood and affect are appropriate. Urine mid tone yellow. Data : 02/27/22 05:04 02/27/22 05:04 Micro: Microbiology 02/26/22 17:14 Stool Lactoferrin - Final Stool Enteric Pathogens (PCR) - Final Parasite Antigen Panel - Final C.difficile Toxin B Gene (PCR) - Final Occult Blood (FIT) - Final 02/26/22 14:19 Blood Culture - Preliminary Blood SPECIMEN COLLECTED 02/26/22 14:24 Blood Culture - Preliminary Blood SPECIMEN COLLECTED A&P Assessment and plan (1) Clostridium difficile colitis: Change metronidazole to 500 mg oral as this is a intestinal luminal effect infection Status: Acute (2) Crohn's disease: Resume home meds Status: Acute Qualifiers: Gastrointestinal tract location: unspecified location Digestive disease complication type: without complication Qualified Code(s): K50.90 - Crohn's disease, unspecified, without complications (3) COPD (chronic obstructive pulmonary disease): Stable Status: Acute Qualifiers: COPD type: unspecified COPD Qualified Code(s): J44.9 - Chronic obstructive pulmonary disease, unspecified (4) Acute kidney injury: Improved continue IV fluids replace potassium Status: Acute Attestations Medical Necessity Statement*: Changed to inpatient for additional IV fluids and metronidazole. Provided diarrhea remains quiescent and white count continues to come down she will be discharged home tomorrow to finish a 10-day course of metronidazole. Time Spent in Patient Care: Greater than 35 minutes Coding Level of Care Code Acute Early Childhood Specialist for [facility] Fwd Diagnoses Clostridium difficile colitis A04.72 Crohn's disease K50.90 Gastrointestinal tract location: unspecified location Digestive disease complication type: without complication COPD (chronic obstructive pulmonary disease) J44.9 COPD type: unspecified COPD Acute kidney injury N17.9
[2022-02-27] MEDS: metroNIDAZOLE 500 MG Tablet PO ×2 (15:30→19:35)
--- NOTE | 2022-02-27 19:42 | PC.NURSE ---
Patient did not have an IV upon my arrival on shift. IV placed.
[2022-02-28] VITALS (8 sets, daily range): BP systolic 113–149; BP diastolic 67–77; PULSE 69–81; RESP 16–18; TEMP 36.2–36.6; O2SAT 93–96
[2022-02-28 05:14] LABS: Basophils # 0.1 10^3/uL (0.0-0.1); Basophils % 0.9 %; Eosinophils # 0.2 10^3/uL (0.0-0.8); Eosinophils % 1.9 %; Hematocrit 32.3 % (37.0-47.0); Hemoglobin 10.1 g/dL (11.5-15.3); Lymphocytes # 1.4 10^3/uL (0.8-4.8); Lymphocytes % 16.5 %; Mean Corpuscular HGB Conc 31.3 g/dL (30.0-36.0); Mean Corpuscular Hemoglobin 31.1 pg (28.0-34.0); Mean Corpuscular Volume 99.4 fl (81-99); Mean Platelet Volume 9.8 fL (7.4-10.4); Monocytes # 0.8 10^3/uL (0.2-0.9); Monocytes % 9.5 %; Neutrophils # 5.91 10^3/uL (1.8-7.7); Neutrophils % 69.7 %; Nucleated Red Blood Cells % 0 %; Platelet Count 303 10^3/cmm (130-400); Red Blood Count 3.25 10^6/uL (4.1-5.3); Red Cell Distribution Width 13.7 % (12.1-15.1); White Blood Count 8.5 10^3/uL (4.0-10.0)
[2022-02-28 05:45] LABS: Anion Gap 12.5 (5-19); Blood Urea Nitrogen 8 mg/dL (8-23); Calcium 7.9 mg/dL (8.5-10.5); Carbon Dioxide 18 mmol/L (22-29); Chloride 111 mmol/L (98-107); Glomerular Filtration Rate 82.7 mL/min (90-130); Glucose 109 mg/dL (65-115); Osmolality Calculated 285 mOsm/kg (285-295); Potassium 3.5 mmol/L (3.5-5.1); Sodium 138 mmol/L (136-145)
[2022-02-28] MEDS: metroNIDAZOLE 500 MG Tablet PO ×3 (08:14→19:57)
[2022-02-28] MEDS: calcium carbonate 500 mg Chew Tablet PO (08:15)
[2022-02-28] MEDS: metoprolol tartrate 25 mg Tablet PO (08:15)
[2022-02-28] MEDS: pyridostigmine 60 mg Tablet PO ×3 (08:15→19:57)
[2022-02-28] MEDS: sodium chlor 0.9% + KCl 20 mEq 20 MEQ/1,000 ML BAG 150 MEQ IV (08:23)
--- NOTE | 2022-02-28 11:08 | P.PN_ITS ---
Subjective Subjective: 2 BMs since daylight patient states stooling still not solid but better. She denies blood in the stool. She is making lots of urine. Denies abdominal pain or fever. Vitals/I&O/Wt Last Vital Signs Temp 97.7 F 02/28/22 07:16 Pulse 70 02/28/22 09:17 Resp 16 02/28/22 09:17 BP 126/71 02/28/22 07:16 Pulse Ox 94 02/28/22 09:17 02/27/22 02/28/22 02/28/22 22:59 06:59 14:59 Intake Total 1605 / 4025 1000 / 5025 720 / 720 Balance 1605 / 4025 1000 / 5025 720 / 720 Weight last 48 hrs Weight 56.019 kg Weight 56.064 kg Weight 56.302 kg Weight 54.431 kg Physical Exam Narrative: General well-developed well-nourished female in no acute cardiopulmonary stress she is alert oriented pleasant CV regular rate and rhythm Lungs clear to auscultation bilaterally Abdomen active positive bowel sounds soft nontender Calves noted tenderness cords or pretibial edema Mentation mood and affect are appropriate. Data : 02/28/22 04:59 02/28/22 04:59 Micro: Microbiology 02/26/22 14:19 Blood Culture - Preliminary Blood NEGATIVE TO DATE 02/26/22 14:24 Blood Culture - Preliminary Blood NEGATIVE TO DATE 02/26/22 17:14 Stool Lactoferrin - Final Stool Enteric Pathogens (PCR) - Final Parasite Antigen Panel - Final C.difficile Toxin B Gene (PCR) - Final Occult Blood (FIT) - Final A&P Assessment and plan (1) Clostridium difficile colitis: Change metronidazole to 500 mg oral as this is a intestinal luminal effect infection. continue vancomycin as well Status: Acute (2) Crohn's disease: Resume home meds Status: Acute Qualifiers: Gastrointestinal tract location: unspecified location Digestive disease complication type: without complication Qualified Code(s): K50.90 - Crohn's disease, unspecified, without complications (3) COPD (chronic obstructive pulmonary disease): Stable Status: Acute Qualifiers: COPD type: unspecified COPD Qualified Code(s): J44.9 - Chronic obstructive pulmonary disease, unspecified (4) Acute kidney injury: Resolved Change IV fluid to half NS with 20 of KCl per liter Status: Acute Attestations Medical Necessity Statement*: Continued vancomycin, metronidazole and IV fluids Time Spent in Patient Care: Greater than 35 minutes Coding Level of Care Code Acute Application Project Leader for [facility] Fwd Diagnoses Clostridium difficile colitis A04.72 Crohn's disease K50.90 Gastrointestinal tract location: unspecified location Digestive disease complication type: without complication COPD (chronic obstructive pulmonary disease) J44.9 COPD type: unspecified COPD Acute kidney injury N17.9
[2022-02-28] MEDS: sodium chlor 0.45% +KCl 20 mEq 20 MEQ/1,000 ML BAG 75 MEQ IV ×2 (12:32→19:57)
[2022-03-01] VITALS: BP 148/76; PULSE 71; RESP 18; TEMP 36.7; O2SAT 93
[2022-03-01 04:00] VITALS: BP 148/76; PULSE 71; RESP 18; TEMP 36.7; O2SAT 93
[2022-03-01 07:13] VITALS: BP 159/76; PULSE 67; RESP 17; TEMP 36.3; O2SAT 95
[2022-03-01 07:59] VITALS: PULSE 72; RESP 16; O2SAT 94
[2022-03-01] MEDS: metoprolol tartrate 25 mg Tablet PO (08:19)
[2022-03-01] MEDS: calcium carbonate 500 mg Chew Tablet PO (08:19)
[2022-03-01] MEDS: pyridostigmine 60 mg Tablet PO ×2 (08:19→16:01)
[2022-03-01] MEDS: metroNIDAZOLE 500 MG Tablet PO ×2 (08:19→16:01)
[2022-03-01 11:18] VITALS: BP 142/78; PULSE 68; RESP 17; TEMP 36.3; O2SAT 94
--- NOTE | 2022-03-01 13:18 | P.DS_ITS ---
Discharge Providers Date of Admission: 02/26/22 15:24 Date of Discharge: March 01, 2022 Attending Provider at Admission: Mehdi Hoyt MD Attending Provider at Discharge: Mehdi Hoyt MD Primary Care Provider: Ariadna rCuz MD Diagnoses at Discharge Discharge Diagnosis (1) Clostridium difficile colitis: Details from hospital stay: Continue 10-day course of both metronidazole and vancomycin. She is at increased risk due to having Crohn's disease Status: Acute (2) Crohn's disease: Details from hospital stay: Okay to resume mesalamine Status: Acute Qualifiers: Gastrointestinal tract location: unspecified location Digestive disease complication type: without complication Qualified Code(s): K50.90 - Crohn's disease, unspecified, without complications (3) COPD (chronic obstructive pulmonary disease): Details from hospital stay: Stable Status: Acute Qualifiers: COPD type: unspecified COPD Qualified Code(s): J44.9 - Chronic obstructive pulmonary disease, unspecified (4) Acute kidney injury: Details from hospital stay: Resolved Status: Acute Reason for Visit Reason for Visit: Poss rx to antibiotics, D/N Brief History: Patient was treated for skin tear with Keflex and developed severe diarrhea Hospital Course Hospital Course 71-year-old female with Crohn's disease came in with diarrhea following Keflex. She had white count 25,000 and acute kidney injury with BUN 43 creatinine 2.4. She was treated with IV fluids, vancomycin p.o. and metronidazole IV switched subsequently to p.o. and steadily improved. She still has soft stool not formed but she has Crohn's disease and states that her stools are more frequent and looser than those of others although still is looser than her usual. White count down to 8.5 yesterday and BUN and creatinine normalized at 8 and 0.7 Physical Exam Narrative: General well-developed well-nourished thin female in no acute cardiopulmonary distress she is alert oriented pleasant CV regular rate and rhythm lungs clear to auscultation bilaterally abdomen positive bowel sounds soft nontender calves no tenderness or pedal edema Mentation mood and affect all normal Discharge Data Studies Completed and Pending Completed Studies During Hospitalization Category Date Time Status CT abdomen pelvis wo con [id number] Urgent Cat Scan 02/26/22 14:11 Completed Pending at discharge Category Date Time Status Blood Culture Stat Lab 02/26/22 14:19 Results Radiology Impressions Abdomen/Pelvis CT 02/26/22 14:11 IMPRESSION: Fat stranding around the colon representing colitis. Laboratory Results WBC 8.5 10^3/uL (4.0-10.0) 02/28/22 04:59 RBC 3.25 10^6/uL (4.1-5.3) L 02/28/22 04:59 Hgb 10.1 g/dL (11.5-15.3) L 02/28/22 04:59 Hct 32.3 % (37.0-47.0) L 02/28/22 04:59 MCV 99.4 fl (81-99) H 02/28/22 04:59 MCH 31.1 pg (28.0-34.0) 02/28/22 04:59 MCHC 31.3 g/dL (30.0-36.0) 02/28/22 04:59 RDW 13.7 % (12.1-15.1) 02/28/22 04:59 Plt Count 303 10^3/cmm (130-400) 02/28/22 04:59 MPV 9.8 fL (7.4-10.4) 02/28/22 04:59 Neut % (Auto) 69.7 % 02/28/22 04:59 Lymph % (Auto) 16.5 % 02/28/22 04:59 [place] % (Auto) 9.5 % 02/28/22 04:59 Eos % (Auto) 1.9 % 02/28/22 04:59 Baso % (Auto) 0.9 % 02/28/22 04:59 Neut # (Auto) 5.91 10^3/uL (1.8-7.7) 02/28/22 04:59 Lymph # (Auto) 1.4 10^3/uL (0.8-4.8) 02/28/22 04:59 [place] # (Auto) 0.8 10^3/uL (0.2-0.9) 02/28/22 04:59 Eos # (Auto) 0.2 10^3/uL (0.0-0.8) 02/28/22 04:59 Baso # (Auto) 0.1 10^3/uL (0.0-0.1) 02/28/22 04:59 Nucleated RBC % (auto) 0 % 02/28/22 04:59 Nucleated RBCs # 0.0 /100WBC 02/28/22 04:59 Sodium 138 mmol/L (136-145) 02/28/22 04:59 Potassium 3.5 mmol/L (3.5-5.1) 02/28/22 04:59 Chloride 111 mmol/L (98-107) H 02/28/22 04:59 Carbon Dioxide 18 mmol/L (22-29) L 02/28/22 04:59 Anion Gap 12.5 (5-19) 02/28/22 04:59 BUN 8 mg/dL (8-23) 02/28/22 04:59 Creatinine 0.7 mg/dL (0.5-0.9) 02/28/22 04:59 GFR Calculation 82.7 mL/min (90-130) L 02/28/22 04:59 Glucose 109 mg/dL (65-115) 02/28/22 04:59 Calculated Osmolality 285 mOsm/kg (285-295) 02/28/22 04:59 Calcium 7.9 mg/dL (8.5-10.5) L 02/28/22 04:59 Magnesium 2.2 mg/dL (1.7-2.3) 02/27/22 05:04 Total Bilirubin 0.2 mg/dL (0.15-1.2) 02/27/22 05:04 AST 18 U/L (0-32) 02/27/22 05:04 ALT 8 U/L (0-33) 02/27/22 05:04 Alkaline Phosphatase 65 IU/L (35-105) 02/27/22 05:04 Total Protein 5.5 g/dL (6.6-8.7) L D 02/27/22 05:04 Albumin 2.9 g/dL (3.5-5.2) L 02/27/22 05:04 Globulin 2.6 g/dL (1.3-4.6) 02/27/22 05:04 Lipase 15 U/L (13-60) 02/26/22 13:39 Urine Color Yellow (Yellow) 02/26/22 16:20 Urine Appearance Clear (CLEAR) 02/26/22 16:20 Urine pH 5 (5-7) 02/26/22 16:20 Ur Specific [place] 1.015 (1.005-1.030) 02/26/22 16:20 Urine Protein Neg (Negative) 02/26/22 16:20 Urine Glucose (UA) Norm (Normal) 02/26/22 16:20 Urine Ketones Negative (Negative) 02/26/22 16:20 Urine Blood Trace (Negative) H 02/26/22 16:20 Urine Nitrate Negative (Negative) 02/26/22 16:20 Urine Bilirubin Neg (Negative) 02/26/22 16:20 Urine Urobilinogen Norm mg/dL (Negative) 02/26/22 16:20 Ur Leukocyte Esterase Negative (Negative) 02/26/22 16:20 Urine RBC Rare /hpf (0-2) 02/26/22 16:20 Urine WBC 0-4 /hpf (0-5) H 02/26/22 16:20 Ur Squamous Epith Cells 10-15 /hpf (0-5) H 02/26/22 16:20 Amorphous Sediment Not Reportable 02/26/22 16:20 Urine Bacteria 1+ /hpf (NONE) H 02/26/22 16:20 Vitals Last Vital Signs Temp 97.4 F L 03/01/22 11:18 Pulse 68 03/01/22 11:18 Resp 17 03/01/22 11:18 BP 142/78 03/01/22 11:18 Pulse Ox 94 03/01/22 11:18 Discharge Plan Discharge Patient Disposition: Home Condition: Stable Prescriptions: New acetaminophen 500 mg tablet 500 mg PO Q6H PRN (Reason: pain) 5 Days Qty: 20 0RF Pepcid 20 mg tablet 20 mg PO BID PRN (Reason: abdominal pain) 10 Days Qty: 20 0RF ondansetron 4 mg tablet,disintegrating 4 mg PO TID PRN (Reason: nausea and vomiting) 4 Days Qty: 12 0RF Maalox Advanced 1,000-60 mg tablet,chewable 1 tab PO TID PRN (Reason: abdominal pain) 7 Days Qty: 21 0RF metronidazole 500 mg Tablet 500 mg PO TID Qty: 30 0RF vancomycin 1,000 mg Recon Soln 125 mg PO QID Qty: 40 0RF Continued calcium carbonate 600 mg calcium (1,500 mg) tablet 600 mg PO DAILY 0RF albuterol sulfate [ProAir HFA] 90 mcg/actuation HFA aerosol inhaler 2 puff INHALATION Q6H PRN (Reason: shortness of breath or wheezing) Qty: 8.5 1RF cephalexin 500 mg capsule 500 mg PO BID 10 Days Qty: 20 0RF krill oil 500 mg capsule 500 mg PO DAILY Qty: 90 4RF Dulera 200-5 mcg/actuation HFA aerosol inhaler See Rx Instructions .ROUTE .COMPLEX Qty: 13 5RF Dose Instruction: inhale TWO puffs itno lungs TWICE DAILY Rx Instructions: inhale TWO puffs itno lungs TWICE DAILY pyridostigmine bromide 60 mg tablet 60 mg PO TID 90 Days Qty: 270 3RF atorvastatin 20 mg tablet 20 mg PO DAILY 0RF folic acid 1 mg tablet 1 mg PO DAILY 0RF metoprolol tartrate 25 mg tablet 25 mg PO DAILY 0RF mesalamine 1.2 gram tablet,delayed release (DR/EC) 1.2 g PO BID 0RF cholecalciferol (vitamin D3) 1,250 mcg (50,000 unit) capsule 1,250 mcg PO Q30D 0RF Discontinued lisinopril-hydrochlorothiazide 20-12.5 mg tablet 1 tab PO BID Qty: 180 2RF triamterene-hydrochlorothiazid 75-50 mg tablet 1 tab PO DAILY 0RF Discharge Orders: Discharge Order (Routine); Ordered 03/01/22 Ordered By: Mehdi Hoyt Referrals: Ariadna Cruz MD [Primary Care Provider] - Discharge Diet: Advance as tolerated Discharge Activity: Increase activity as tolerated Patient Instructions: Acute Diarrhea (ED), Opioid Safety Activity Restrictions/Additional Instructions: Please come back if you have any abdominal pain, fever or chills, nausea or vomiting, diarrhea, blood in the stool, inability hold down liquid or solids, or any new concerning complaints. Please stop taking Keflex as it may be related to your diarrhea. Take vancomycin orally 4 times a day for 10 days and metronidazole 500 mg orally 3 times a day for 10 days follow-up with your doctor next week Keep in mind that you are infectious with the C. difficile colitis spores in your stool until your stools are back to normal for 3 days Recommend that you stop the triamterene HCTZ and lisinopril HCTZ blood pressure medications because of the diuretics but continue with metoprolol Discharge Attestations Time Spent in Discharge Care*: greater than 30 min Time Spent in Smoking Cessation: Non-smoker Quality Metrics Clinical Quality Measures [ No reported AMI, CVA or VTE this stay] Coding Level of Care Code Acute Chg FW DC note Diagnoses Clostridium difficile colitis A04.72 Crohn's disease K50.90 Gastrointestinal tract location: unspecified location Digestive disease complication type: without complication COPD (chronic obstructive pulmonary disease) J44.9 COPD type: unspecified COPD Acute kidney injury N17.9
[2022-03-01 15:37] VITALS: BP 138/71; PULSE 81; RESP 18; TEMP 36.7; O2SAT 94
== END 2022-03-01 16:04 | disposition home or self-care (01) ==
LOC: ER 14:31 → MEDSURG 16:55
PROVIDERS: Admitting Provider Internal Medicine; Emergency Provider Emergency Medicine; PCP Family Medicine; Visit Provider Internal Medicine
DX: A04.72 Enterocolitis due to Clostridium difficile, not specified as recurrent (principal); K50.90 Crohn's disease, unspecified, without complications; J44.9 Chronic obstructive pulmonary disease, unspecified; N17.9 Acute kidney failure, unspecified; I10 Essential (primary) hypertension; Z82.49 Family history of ischemic heart disease and other diseases of the circulatory system; Z87.891 Personal history of nicotine dependence
CPT/HCPCS: 36415; 74176; 80048; 80053; 81001; 82274; 83630; 83690; 83735; 85025; 87040; 87493; 87506; 96365; 96366; 96367; 99285; G0378; J0692; J3370; J7030; S0030

== ENCOUNTER → 2022-03-08 17:45 | Outpatient (BNVA) | payer MEDICARE, SELFPAY | PROVIDERS: PCP Family Medicine; Visit Provider Family Medicine | DX: A04.72 Enterocolitis due to Clostridium difficile, not specified as recurrent (principal); N17.9 Acute kidney failure, unspecified; Z09 Encounter for follow-up examination after completed treatment for conditions other than malignant neoplasm | CPT/HCPCS: 80053; 85025 ==

== ENCOUNTER → 2022-03-27 09:06 | Outpatient (BNVA) | payer MEDICARE, SELFPAY | PROVIDERS: PCP Family Medicine; Visit Provider Surgery | DX: K50.90 Crohn's disease, unspecified, without complications (principal); Z86.010 Personal history of colon polyps; Z87.19 Personal history of other diseases of the digestive system | CPT/HCPCS: 99203 ==

== ENCOUNTER → 2022-03-29 11:24 | Outpatient (BNVA) | payer MEDICARE, SELFPAY | PROVIDERS: PCP Family Medicine; Visit Provider Family Medicine | DX: R60.9 Edema, unspecified (principal) | CPT/HCPCS: 80048 ==

== ENCOUNTER → 2022-04-12 14:08 | Outpatient (BNVA) | payer MEDICARE, SELFPAY | PROVIDERS: PCP Family Medicine; Visit Provider Family Medicine | DX: N17.9 Acute kidney failure, unspecified (principal) | CPT/HCPCS: 80048 ==

== ENCOUNTER 2022-04-13 07:26 | Day surgery (SDC) | payer MEDICARE, SELFPAY ==
[2022-04-13 08:18] VITALS: BP 122/76; PULSE 94; RESP 18; TEMP 36.5; O2SAT 94
[2022-04-13] MEDS: sodium chloride 0.9% 1,000 ML 30 ML IV (08:30)
--- NOTE | 2022-04-13 08:39 | W.PM.OPSUD ---
Surgery/Procedure H&P Update DATE OF PROCEDURE: April 13, 2022 DATE H&P PERFORMED: 03/27/22 CHANGES TO PREVIOUS DOCUMENTATION: None PLANNED PROCEDURE: Operation Date: 04/13/22 09:00 Proposed Procedures p Colonoscopy 38133,Z87.19(Not Applicable) - Brijesh Rios DO
--- NOTE | 2022-04-13 09:11 | P.ANESASSM_ITS ---
Pre-Anesthetic Assessment Height/Weight: Height 1.65 m Weight 54.431 kg Temp Pulse Resp BP Pulse Ox 97.7 F 94 18 122/76 94 04/13/22 08:18 04/13/22 08:18 04/13/22 08:18 04/13/22 08:18 04/13/22 08:18 Preop Diagnosis: screening Operation Date: 04/13/22 09:00 Proposed Procedures p Colonoscopy 25907,Z87.19(Not Applicable) - Brijesh Rios DO Familial anesthetic complications: none Was Beta Lore taken within 24 hours: Yes Was Clonidine taken within 24 hours: N/A Last intake: Intake Last Liquid Date 04/12/22 Last Liquid Time 22:00 Last Solid Date 04/11/22 Last Solid Time 17:30 Social No alcohol and No tobacco Exam alert, oriented x 3, clear to auscultation bilaterally and regular rate & rhythm Airway Submandibular: within normal limits Cervical ROM: within normal limits Mallampati: Class II Comments: Comments: Upper dentures Pulmonary Chronic Obstructive Pulmonary Disease CV/HEM Hypertension Able to go up 1 story w/o CP, SOB able to ascend 3 stories without CP None reported Hepatic None reported GI Chrohn's No difficulty swallowing Metabolic Thyroid Disease (Hx of Myesthenia Gravis ) Musc/skel Osteoarthritis/DJD Neuropsych None reported Anesthetic Plan ASA status: 3 Anesthesia: Anesthesia Evaluation and MAC Other: I discussed with the patient risks, goals, and benefits of MAC and general anesthesia. We discussed spectrum of MAC anesthesia including conversion to general as well as possibility of recall of intraoperative stimuli including discomfort/pain. Patient agrees to proceed with MAC. Risk of > 500 ml blood loss (7ml/kg in children): No Medications/Allergies Home Medications Medication Instructions Recorded Confirmed Last Taken Type albuterol sulfate 90 mcg/actuation 2 puff INHALATION Q6H PRN #8.5 gm 06/09/20 04/11/22 04/12/22 Rx aerosol inhaler (ProAir HFA) krill oil 500 mg capsule 500 mg PO DAILY #90 cap 11/03/20 04/11/22 04/12/22 Rx mometasone-formoterol HFA 200 See Rx Instructions .ROUTE 09/15/21 04/11/22 04/12/22 Rx mcg-5 mcg/actuation aerosol .COMPLEX #13 g inhaler (Dulera) pyridostigmine bromide 60 mg tablet 60 mg PO TID 90 Days #270 tab 11/22/21 04/11/22 04/13/22 06:30 Rx calcium carbonate 600 mg calcium 600 mg PO DAILY 12/07/21 04/11/22 04/12/22 History (1,500 mg) tablet atorvastatin 20 mg tablet 20 mg PO DAILY 02/26/22 04/11/22 04/12/22 History cholecalciferol (vitamin D3) 1,250 1,250 mcg PO Q30D 02/26/22 04/11/22 04/12/22 History mcg (50,000 unit) capsule mesalamine 1.2 gram tablet,delayed 1.2 g PO BID 02/26/22 04/11/22 04/12/22 History release metoprolol tartrate 25 mg tablet 25 mg PO DAILY 02/26/22 04/11/22 04/12/22 17:00 History famotidine 20 mg tablet (Pepcid) 20 mg PO BID PRN 03/08/22 04/11/22 04/12/22 History potassium chloride 20 mEq 20 meq PO QDAY #90 tab 03/12/22 04/11/22 04/12/22 Rx tablet,extended release lisinopril 20 1 tab PO BID #180 tab 04/04/22 04/11/22 04/12/22 Rx mg-hydrochlorothiazide 12.5 mg tablet folic acid 1 mg tablet 1 mg PO DAILY 04/11/22 04/11/22 04/12/22 History furosemide 20 mg tablet 20 mg PO DAILY 04/11/22 04/11/22 04/12/22 History Allergies Allergy/AdvReac Type Severity Reaction Status Date / Time Influenza Virus Vaccines Allergy Intermediate Numbness Verified 03/27/22 09:13 niacin AdvReac Intermediate hives,itching, Verified 03/27/22 09:13 ankle swelling Current Medications Generic Name Dose Route Start Last Admin Trade Name Freq PRN Reason Stop Dose Admin Sodium Chloride 1,000 mls @ 30 mls/hr 04/13/22 08:15 04/13/22 08:30 Sodium Chloride 0.9% IV 04/14/22 08:14 30 mls/hr .Q24H VANGIE Administration PFSH Anesthesia Medical History Clostridium difficile colitis COPD (chronic obstructive pulmonary disease) Crohn's disease History of colon polyps Hyperlipidemia Hypertension Myasthenia gravis Post-menopause Surgical History H/O oophorectomy History of hysterectomy Hx of colonoscopy (~2018) showed polyps which were not removed Family History Other CAD (coronary artery disease) Social History Smoking and tobacco status: never smoked Alcohol intake: current Alcohol intake frequency: holidays/special occasions only Lives independently: Yes Housing: House Current occupational status: retired Previous occupational history: 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
[2022-04-13 10:32] VITALS: BP 87/55; PULSE 70; RESP 20; TEMP 36.1; O2SAT 100
[2022-04-13 10:45] VITALS: BP 102/61; PULSE 74; RESP 18; O2SAT 97
== END 2022-04-13 11:07 | disposition home or self-care (01) ==
PROVIDERS: PCP Family Medicine; Visit Provider Surgery
PROC: 0DJD8ZZ Inspection of Lower Intestinal Tract, Via Natural or Artificial Opening Endoscopic (ICD-10-PCS; CPT 45378; principal; 2022-04-13 09:00)
DX: K50.90 Crohn's disease, unspecified, without complications (principal); Z86.010 Personal history of colon polyps; Z87.19 Personal history of other diseases of the digestive system; E78.5 Hyperlipidemia, unspecified; I10 Essential (primary) hypertension; Z82.49 Family history of ischemic heart disease and other diseases of the circulatory system; K52.9 Noninfective gastroenteritis and colitis, unspecified; K63.5 Polyp of colon; J44.9 Chronic obstructive pulmonary disease, unspecified
CPT/HCPCS: 45380; 45385; 88305; J2704; J7030

== ENCOUNTER → 2022-04-17 08:09 | Outpatient (BNVA) | payer MEDICARE, SELFPAY | PROVIDERS: PCP Family Medicine; Visit Provider Specialist | DX: G70.00 Myasthenia gravis without (acute) exacerbation (principal); R26.89 Other abnormalities of gait and mobility; J44.9 Chronic obstructive pulmonary disease, unspecified; Z86.16 Personal history of COVID-19 | CPT/HCPCS: 36415; 82607; 83516; 83519; 85651; 86140; 99213; 99214 ==

== ENCOUNTER → 2022-04-27 08:05 | Outpatient (BNVA) | payer MEDICARE, SELFPAY | PROVIDERS: PCP Family Medicine; Visit Provider Surgery | DX: Z09 Encounter for follow-up examination after completed treatment for conditions other than malignant neoplasm (principal); K55.9 Vascular disorder of intestine, unspecified; K50.90 Crohn's disease, unspecified, without complications | CPT/HCPCS: 99213 ==

== ENCOUNTER → 2022-05-17 09:58 | Outpatient (BNVA) | payer MEDICARE, SELFPAY | PROVIDERS: PCP Family Medicine; Visit Provider Family Medicine | DX: R60.9 Edema, unspecified (principal); E53.8 Deficiency of other specified B group vitamins; N17.9 Acute kidney failure, unspecified | CPT/HCPCS: 80048 ==

== ENCOUNTER → 2022-08-22 08:01 | Outpatient (BNVA) | payer MEDICARE, SELFPAY | PROVIDERS: PCP Family Medicine; Visit Provider Specialist | DX: G70.00 Myasthenia gravis without (acute) exacerbation (principal); E53.8 Deficiency of other specified B group vitamins | CPT/HCPCS: 99213; 99214 ==

== ENCOUNTER → 2022-10-09 18:40 | Outpatient (BNVA) | payer MEDICARE, SELFPAY | PROVIDERS: PCP Family Medicine; Visit Provider Nurse Practitioner Family | DX: R30.0 Dysuria (principal); N39.0 Urinary tract infection, site not specified | CPT/HCPCS: 81000; 87086 ==

== ENCOUNTER → 2022-11-22 14:46 | Outpatient (BNVA) | payer MEDICARE, SELFPAY | PROVIDERS: PCP Family Medicine; Visit Provider Family Medicine | DX: E53.8 Deficiency of other specified B group vitamins (principal); E55.9 Vitamin D deficiency, unspecified; E78.2 Mixed hyperlipidemia; K50.90 Crohn's disease, unspecified, without complications; I10 Essential (primary) hypertension | CPT/HCPCS: 80053; 80061; 82306; 82607; 84443; 85025 ==

== ENCOUNTER 2023-01-31 14:49 | Outpatient (CLI) | payer MEDICARE, SELFPAY ==
--- NOTE | 2023-01-31 15:40 | MM_ITS ---
WS: [id number] BILATERAL 3D TOMOSYNTHESIS DIGITAL SCREENING MAMMOGRAPHY WITH CAD CLINICAL INFORMATION: SCREENING HISTORY: Screening mammogram. No current complaints. COMPARISON: January 11, 2022 TECHNIQUE: Bilateral CC and MLO views. FINDINGS: The breasts are composed of heterogeneous fibroglandular density tissue, which can limit the detectio n of small underlying mass lesions. No suspicious mass, asymmetry, calcifications, or architectural d istortion. No evidence of malignancy. A few tiny incidental punctate calcifications. MM/[place] [id number] IMPRESSION: BI-RADS: 2-Benign FOLLOW UP: 1 Year Follow-up Recommend return to annual screening mammography.
== END 2023-01-31 14:50 | disposition home or self-care (01) ==
LOC: RAD 14:53
PROVIDERS: PCP Family Medicine; Visit Provider Family Medicine
DX: Z12.31 Encounter for screening mammogram for malignant neoplasm of breast (principal)
CPT/HCPCS: 77063; 77067

== ENCOUNTER → 2023-04-17 09:16 | Outpatient (BNVA) | payer MEDICARE, SELFPAY | PROVIDERS: PCP Family Medicine; Visit Provider Specialist | DX: G70.00 Myasthenia gravis without (acute) exacerbation (principal); K50.90 Crohn's disease, unspecified, without complications | CPT/HCPCS: 99213 ==

== ENCOUNTER → 2023-04-22 16:36 | Outpatient (BNVA) | payer MEDICARE, SELFPAY | PROVIDERS: PCP Family Medicine; Visit Provider Family Medicine | DX: E55.9 Vitamin D deficiency, unspecified (principal); E53.8 Deficiency of other specified B group vitamins; I10 Essential (primary) hypertension; E78.5 Hyperlipidemia, unspecified | CPT/HCPCS: 80053; 80061; 83036; 84443; 85025 ==

== ENCOUNTER 2023-06-25 11:54 | Emergency (ER) | payer MEDICARE, SELFPAY ==
[2023-06-25 12:02] VITALS: BP 144/77; PULSE 97; RESP 16; TEMP 36.7; O2SAT 91
--- NOTE | 2023-06-25 13:28 | XRR_ITS ---
PROCEDURE INFORMATION: Exam: XR Chest Exam date and time: 06/25/2023 1:39 PM Age: 72 years old Clinical indication: Cough; Additional info: Chest congestion TECHNIQUE: Imaging protocol: Radiologic exam of the chest. Views: 1 view. COMPARISON: 1. CR XR chest 2V* [id number] 12/07/2019 9:[address] abdomen pelvis wo con [id number] 02/26/2022 2:39 PM FINDINGS: Lungs: Bibasilar reticular lung markings. No consolidation. Pleural spaces: No pleural effusion or pneumothorax. Heart/Mediastinum: Moderate hiatal hernia. Vasculature: Aortic arch atherosclerotic calcification. Bones/joints: Unremarkable. XR/XR chest 1V portable [id number] IMPRESSION: 1. Bibasilar reticulation may represent fibrotic change, possibly element of atelectasis or scarring. No consolidative pneumonia. 2. Moderate hiatal hernia.
--- NOTE | 2023-06-25 13:50 | W.ED.URI ---
HPI - URI/Sore Throat General: Chief Complaint: Upper Respiratory Infection Stated Complaint: chest congestion, phys sent: DR Cruz Time Seen by Provider: 06/25/23 13:49 Source: patient Mode of arrival: ambulatory Limitations: no limitations History of Present Illness: Patient is a nice 72-year-old female who presents to ED today with a complaint of non-productive cough and hoarseness over the past 2 weeks. Patient states she saw her primary care provider about a week and a half ago. She states she was having a lot of chest congestion at that time. She was placed on 10 days of Levaquin. Patient states the congestion has went away but has been left with a nonproductive irritating scratchy cough as well as continued hoarseness. She is not having any chest pain or difficulty breathing. No fevers. She is not having any sore throat or difficulty swallowing. She states primary care sent her here to get a chest x-ray. MD elicited complaint: cough and other (hoarseness) Consistency: constant Severity: moderate Able to tolerate fluids by mouth: Yes Relieving factors: other (Throat lozenges) Associated symptoms: Deny abdominal pain, chills, chest pain, diarrhea, fever(s), headache(s), nasal congestion, nausea, sinus pain or vomiting Treatments prior to arrival: antibiotics Review of Systems Const: Denies: fever(s), chills, body aches, fatigue or malaise ENMT: Reports: hoarseness; Denies: throat pain, uvular edema, enlarged tonsils, odynophagia, mouth pain, swelling of lips/tongue, oral sores, ear discharge, nasal discharge, nasal congestion or sinus pain Card: Denies: chest pain, palpitations, edema, lightheadedness, syncope or pre-syncope Resp: Reports: non-productive cough; Denies: dyspnea, productive cough, wheezing, pain on inspiration, change in phlegm color, hemoptysis or chest congestion GI: Denies: abdominal pain, nausea, vomiting or diarrhea Musc: Denies: neck pain, back pain, extremity pain or joint pain Skin/Breast: Denies: rash Neuro: Denies: headache(s), numbness in extremities, weakness in extremities or sensory changes PFS ED PFSH: Medical History Clostridium difficile colitis COPD (chronic obstructive pulmonary disease) Crohn's disease History of colon polyps Hyperlipidemia Hypertension Ischemic colitis Myasthenia gravis Post-menopause Surgical History H/O oophorectomy History of hysterectomy Hx of colonoscopy (~2018) showed polyps which were not removed Family History Other CAD (coronary artery disease) Social History Smoking and tobacco status: never smoked Alcohol intake: current Alcohol intake frequency: holidays/special occasions only Substance/Drug Use: never Lives independently: Yes Housing: House Current occupational status: retired 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 Current gender identity: Female Physical Exam Const: COMMON NORMALS: no acute distress, average body habitus, patient oriented x3, no limitations, healthy appearing, alert and well nourished GENERAL APPEARANCE: cooperative ORIENTATION/CONSCIOUSNESS: Yes awake, Yes oriented to person, Yes oriented to place and Yes oriented to time HENMT: COMMON NORMALS: normocephalic, atraumatic, hearing grossly normal bilaterally, external ears normal, EAC's normal, TM's normal bilaterally, Normal external nose present, Normal nasal mucous membranes and turbinates present, moist oral mucous membranes, oropharynx normal and gingiva normal HEAD & SCALP: normal to inspection, normocephalic and atraumatic FACE & SINUS: normal facial exam and sinuses nontender NOSE: Normal external nose present and Normal nasal mucous membranes and turbinates present EXTERNAL EAR: Yes external ears normal EXTERNAL AUDITORY CANAL: EAC's normal TYMPANIC MEMBRANE: TM's normal bilaterally MOUTH: Normal oral and palatal mucosa present, lip normal and tongue normal THROAT: posterior oropharynx normal, tonsils normal and uvula midline; no uvular edema OTHER: Hoarseness Eye: COMMON NORMALS: Equal, round and reactive pupils present GENERAL EYE: appearance normal, both eyes and all related structures and normal light reflex PUPIL: Yes Equal, round and reactive pupils present DIRECT OPHTHALMOSCOPY: Yes normal light reflex Neck/C-Spine: COMMON NORMALS: full ROM, no lymphadenopathy, no meningeal signs and no JVD Chest: COMMONS NORMALS: normal inspection of the chest and normal palpation of entire chest wall Resp: COMMON NORMALS: normal respiratory effort and clear to auscultation bilaterally AUSCULTATION: clear to auscultation bilaterally Cardio: COMMON NORMALS: no JVD, regular rate and regular rhythm RATE: regular rate RHYTHM: regular rhythm Extremity: COMMON NORMALS: no clubbing, cyanosis or edema, no calf tenderness and no pedal edema GENERAL: Yes normal exam except as noted Neuro: COMMON NORMALS: patient oriented x3 SENSORIUM/ORIENTATION: Yes alert, Yes oriented to person, Yes oriented to place and Yes oriented to time MENINGEAL SIGNS: Yes no meningeal signs Skin: COMMON NORMALS: no rashes or lesions noted GENERAL SKIN EXAM: no rashes or lesions noted Course Vital Signs: Vital signs: Vital Signs Temperature 98.0 F 06/25/23 12:02 Pulse Rate 83 06/25/23 14:11 Respiratory Rate 16 06/25/23 12:02 Blood Pressure 124/65 06/25/23 14:11 Pulse Oximetry 91 06/25/23 14:11 Oxygen Delivery Me thod Room Air 06/25/23 14:11 MDM - URI/Sore Throat Medical Decision Making Patient appears in no acute distress. Her vital signs are unremarkable. CXR showing no consolidates. She does have chronic bibasilar fibrotic change versus atelectasis or scarring. Patient has already been treated with 10 days of Levaquin. I do not feel she needs additional antibiotics at this time. She does have a history of C. difficile so I would like to be judicious in using these. She states she has albuterol inhalers at home she can use if needed. We will place her on a tapering steroid. She can continue using throat lozenges. Of note she is on an WILL inhibitor/lisinopril. Currently this complaint seems to be acute related with hoarseness and chest congestion however if the cough does not improve we may think about discontinuing this medication. Return ED precautions given. Lab Data Radiology Impressions Chest X-Ray 06/25/23 13:28 IMPRESSION: 1. Bibasilar reticulation may represent fibrotic change, possibly element of atelectasis or scarring. No consolidative pneumonia. 2. Moderate hiatal hernia. All radiology interpretation(s) finalized by discharge Discharge Plan Discharge Patient Disposition: Home Clinical Impression: Bronchitis, Laryngitis Condition: Stable Prescriptions: New prednisone 10 mg tablet 10 mg PO DAILY 10 Days Qty: 20 0RF Rx Instructions: Take 5 tabs on day 1-2, 4 tabs on day 3, 3 tabs on day 4, 2 tabs on day 5, and 1 tab on day 6 No Action albuterol sulfate [ProAir HFA] 90 mcg/actuation HFA aerosol inhaler 2 puff INHALATION Q6H PRN (Reason: shortness of breath or wheezing) Qty: 8.5 1RF cholecalciferol (vitamin D3) 1,250 mcg (50,000 unit) capsule 1,250 mcg PO Q30D Qty: 30 3RF lisinopril-hydrochlorothiazide 20-12.5 mg tablet 1 tab PO BID Qty: 180 3RF potassium chloride 20 mEq tablet extended release See Rx Instructions .ROUTE .COMPLEX Qty: 90 3RF Dose Instruction: TAKE ONE TABLET BY MOUTH EVERY DAY Rx Instructions: TAKE ONE TABLET BY MOUTH EVERY DAY pyridostigmine bromide 60 mg tablet 60 mg PO QID 90 Days Qty: 360 3RF Spiriva with HandiHaler 18 mcg capsule, w/inhalation device 1 cap inhalation DAILY Qty: 60 4RF Rx Instructions: puncture 1 cap using device; one dose = 2 inhalations Dulera 200-5 mcg/actuation HFA aerosol inhaler 2 puff inhalation BID Qty: 13 4RF krill oil 500 mg capsule 500 mg PO DAILY Qty: 90 4RF prednisone 10 mg tablet 10 mg PO ONCE 90 Days Qty: 90 0RF furosemide 20 mg tablet See Rx Instructions .ROUTE .COMPLEX Qty: 30 0RF Dose Instruction: TAKE ONE TABLET BY MOUTH DAILY Rx Instructions: TAKE ONE TABLET BY MOUTH DAILY atorvastatin 20 mg tablet See Rx Instructions .ROUTE .COMPLEX Qty: 30 5RF Dose Instruction: TAKE ONE TABLET BY MOUTH DAILY Rx Instructions: TAKE ONE TABLET BY MOUTH DAILY mesalamine 1.2 gram tablet,delayed release (DR/EC) See Rx Instructions .ROUTE .COMPLEX Qty: 120 0RF Dose Instruction: TAKE TWO TABLETS BY MOUTH TWICE DAILY Rx Instructions: TAKE TWO TABLETS BY MOUTH TWICE DAILY calcium carbonate 600 mg calcium (1,500 mg) tablet See Rx Instructions .ROUTE .COMPLEX Qty: 30 3RF Dose Instruction: TAKE ONE TABLET BY MOUTH EVERY DAY Rx Instructions: TAKE ONE TABLET BY MOUTH EVERY DAY folic acid 1 mg tablet See Rx Instructions .ROUTE .COMPLEX Qty: 30 3RF Dose Instruction: TAKE ONE TABLET BY MOUTH EVERY DAY Rx Instructions: TAKE ONE TABLET BY MOUTH EVERY DAY Discharge Orders: Discharge ED (Routine); Ordered 06/25/23 Ordered By: Caitlyn Jha Referrals: Ariadna Cruz MD [Primary Care Provider] - Coding Level of Care Code ED Senior Applications Engineer for Jeny Singh
[2023-06-25 14:11] VITALS: BP 124/65; PULSE 83; O2SAT 91
--- NOTE | 2023-06-25 14:11 | PC.NURSE ---
NURSE ASSUMED CARE AT 1405
== END 2023-06-25 14:26 | disposition home or self-care (01) ==
PROVIDERS: Emergency Provider Physician Assistant; PCP Family Medicine
DX: J44.0 Chronic obstructive pulmonary disease with (acute) lower respiratory infection (principal); J20.9 Acute bronchitis, unspecified; J04.0 Acute laryngitis; E78.5 Hyperlipidemia, unspecified; I10 Essential (primary) hypertension
CPT/HCPCS: 71045; 99283

== ENCOUNTER → 2023-08-15 11:00 | Outpatient (BNVA) | payer MEDICARE, SELFPAY | PROVIDERS: PCP Family Medicine; Visit Provider Family Medicine | DX: G56.03 Carpal tunnel syndrome, bilateral upper limbs (principal); I10 Essential (primary) hypertension; E78.5 Hyperlipidemia, unspecified; J44.9 Chronic obstructive pulmonary disease, unspecified; E55.9 Vitamin D deficiency, unspecified | CPT/HCPCS: 80053; 80061; 82306; 84443 ==

== ENCOUNTER → 2023-08-20 08:05 | Outpatient (BNVA) | payer MEDICARE, SELFPAY | PROVIDERS: PCP Family Medicine; Visit Provider Specialist | DX: G70.00 Myasthenia gravis without (acute) exacerbation (principal) | CPT/HCPCS: 99212 ==

== ENCOUNTER 2023-09-20 15:16 | Inpatient (IN) | payer MEDICARE, SELFPAY ==
--- NOTE | 2023-09-20 15:30 | XRR_ITS ---
PROCEDURE INFORMATION: Exam: XR Right Hip Exam date and time: 09/20/2023 4:47 PM Age: 73 years old Clinical indication: Pain and injury or trauma; Fall; Blunt trauma (contusions or hematomas); Hip pain; Right hip TECHNIQUE: Imaging protocol: Radiologic exam of the right hip. Views: 1 view hip with pelvis when performed. COMPARISON: CT abdomen pelvis wo con [id number] 02/26/2022 2:39 PM FINDINGS: Bones/joints: A subcapital femoral neck fracture of the right hip is seen. Mild superolateral position of the femoral shaft in relation to the femoral head indicating mild angulation at the fracture site. A component of impaction at the fracture site, as well. Femoral head remains in good position with the acetabulum. No other fracture seen. Soft tissues: No significant focal soft tissue abnormality. Vasculature: Arterial vascular calcification noted. XR/XR hip RT 2-3V wo/w pel* [id number] IMPRESSION: Subcapital femoral neck fracture of the right hip as noted above.
[2023-09-20 15:32] VITALS: BP 142/78; PULSE 93; RESP 18; TEMP 36.6; O2SAT 96
--- NOTE | 2023-09-20 15:33 | W.ED.FALL ---
HPI - Fall General: Chief Complaint: Extremity Injury, Lower Stated Complaint: fall Time Seen by Provider: 09/20/23 15:21 Source: patient Mode of arrival: EMS Limitations: no limitations History of Present Illness: This patient was transported to the emergency department. She had a trip and fall episode in the parking lot at [facility]. She states that she was attempting to prevent herself from injuring herself when she fell and wound up falling on her right hip. She states she did not hit her head or suffer loss of consciousness. She was very adamant that she did not have a syncopal or passout episode prior to the fall that she tripped over the curb. She states she has pain in her right hip and hurts to move her right leg and also attempt to bear weight. No other injuries noted other than superficial abrasions to her right elbow and her right hand. MD complaint: fall Fall from: standing Location of injury - extremities: Right: lower leg Associated symptoms-after fall: Denies chest pain, headache(s) or neck pain Review of Systems Const: Denies: fever(s) or chills Eyes: Denies: change in vision ENMT: Denies: odynophagia or nasal discharge Card: Denies: chest pain, syncope or pre-syncope Resp: Denies: dyspnea, productive cough or non-productive cough GI: Denies: nausea, vomiting or diarrhea : Denies: flank pain, difficulty voiding, dysuria or urinary frequency Musc: Reports: extremity pain and limited range of motion; Denies: neck pain or back pain Neuro: Denies: headache(s), numbness in extremities or weakness in extremities Moi/Lymph: Denies: easy bruising or easy bleeding PFSH ED PFSH: Medical History Ischemic colitis History of colon polyps Clostridium difficile colitis Myasthenia gravis Post-menopause Hypertension Hyperlipidemia COPD (chronic obstructive pulmonary disease) Crohn's disease Surgical History Hx of colonoscopy (~2018) showed polyps which were not removed H/O oophorectomy History of hysterectomy Family History Other CAD (coronary artery disease) Social History Smoking and tobacco/nicotine status: never used tobacco/nicotine Alcohol intake: current Alcohol intake frequency: holidays/special occasions only Substance/Drug Use: never Lives independently: Yes Housing: House Current occupational status: retired 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 She makes good eye contact and answers questions in a goal-directed fashion. Const: COMMON NORMALS: no acute distress, average body habitus and patient oriented x3 GENERAL APPEARANCE: cooperative HENMT: COMMON NORMALS: normocephalic, Normal nasal mucous membranes and turbinates present and moist oral mucous membranes HEAD & SCALP: normocephalic FACE & SINUS: normal facial exam and face symmetric NOSE: Normal nasal mucous membranes and turbinates present Eye: COMMON NORMALS: Equal, round and reactive pupils present and EOMs intact bilaterally PUPIL: Yes Equal, round and reactive pupils present Neck/C-Spine: CERVICAL SPINE: Yes cervical ROM normal, No Cervical spine tenderness and No step off deformity OTHER: She is able to range her neck 45 degrees left and right, forward bend and extend 15 degrees all without pain. She had no midline tenderness or step-off. Chest: COMMONS NORMALS: normal inspection of the chest Resp: COMMON NORMALS: normal respiratory effort, No retractions, No use of accessory muscles and clear to auscultation bilaterally EFFORT & INSPECTION: Yes able to speak in complete sentences AUSCULTATION: clear to auscultation bilaterally Cardio: COMMON NORMALS: regular rate, regular rhythm, No murmurs present (Cardio) and Peripheral pulses 2+ throughout RATE: regular rate RHYTHM: regular rhythm PERIPHERAL PULSES: Peripheral pulses 2+ throughout : COMMON NORMALS: Yes no CVA tenderness BLADDER/KIDNEY EXAM: Yes no CVA tenderness Back/Pelvis: COMMON NORMALS: no CVA tenderness, thoracic and lumbar spine normal to inspection, no thoracic nor lumbar tenderness and thoraco-lumbar ROM normal PELVIS: Yes no pain with anterior-posterior compression and Yes no pain with lateral compression Extremity: COMMON NORMALS: capillary refill normal, no calf tenderness and no pedal edema NARRATIVE EXTREMITY EXAM: Right lower extremity was examined she had tenderness to palpation over the region of the greater trochanter. She also had subjective discomfort with attempts to move the right hip and anything other than resting position. There was no obvious shortening or internal or external rotation. There was no other positive findings on the remainder of her right lower extremity examination. She was neurovascular intact. OTHER: She had a superficial abrasion to the hyperthenar eminence of the right hand as well as superficial abrasion to the right lateral elbow Neuro: COMMON NORMALS: patient oriented x3, moves all extremities and no focal motor deficits CRANIAL NERVES: Yes CN normal except as noted Psych: COMMON NORMALS: mental status grossly normal Skin: COMMON NORMALS: turgor normal and no petechiae GENERAL SKIN EXAM: turgor normal TRAUMA: abrasion (Right hand, right elbow) Course Reevaluation(s): Reevaluation #1: informed patient of x-ray findings and recommendation for admission for surgical fixation. Additional laboratories, IV, analgesics ordered Time: 16:11 Consultations: Consultation #1: Spoke with Dr. Hernandez who was informed of the patient's injury and will plan on intervening surgically. He requests hospitalist admission. Time: 16:18 Consultation #2: Spoke with Dr. Daniels heart attending hospitalist who agreed to admit patient Time: 16:42 Vital Signs: Vital signs: Vital Signs Temperature 97.8 F 09/20/23 15:32 Pulse Rate 93 09/20/23 15:32 Respiratory Rate 18 09/20/23 15:32 Blood Pressure 142/78 09/20/23 15:32 Pulse Oximetry 96 09/20/23 15:32 Oxygen Delivery Me thod Nasal Cannula 09/20/23 15:32 Oxygen Flow Rate 2 09/20/23 15:32 MDM - Fall Medical Decision Making This patient presented to the emergency department after sustaining a ground-level fall without syncope or prodrome. She stated she attempted to avoid falling but wound eventually falling on her right hip. She states she was unable to bear weight or ambulate or move the hip without pain. Her clinical examination revealed her to be in no acute distress she had a couple of abrasions 1 to her right hand and 1 to her right elbow. She had tenderness with movement and palpation of the right hip without any other bony injuries noted. Radiographs were obtained to ascertain nature of her injury which showed a nondisplaced surgical neck fracture. Consultation with orthopedics was obtained who recommended operative fixation. She was admitted to the hospitalist service. Medical Records I reviewed the patient's medical records. Lab Data I reviewed the patient's lab results. Radiology Impressions Hip/Pelvis X-Ray 09/20/23 15:30 IMPRESSION: Subcapital femoral neck fracture of the right hip as noted above. All radiology interpretation(s) finalized by discharge Discharge Plan Discharge Patient Disposition: Admitted As Inpatient Clinical Impression: Fracture of hip, right, closed, Myasthenia gravis, COPD (chronic obstructive pulmonary disease) Condition: Stable Prescriptions: No Action albuterol sulfate [ProAir HFA] 90 mcg/actuation HFA aerosol inhaler 2 puff INHALATION Q6H PRN (Reason: shortness of breath or wheezing) Qty: 8.5 1RF cholecalciferol (vitamin D3) 1,250 mcg (50,000 unit) capsule 1,250 mcg PO Q30D Qty: 30 3RF lisinopril-hydrochlorothiazide 20-12.5 mg tablet 1 tab PO BID Qty: 180 3RF Dulera 200-5 mcg/actuation HFA aerosol inhaler 2 puff inhalation BID Qty: 13 4RF pyridostigmine bromide 60 mg tablet 60 mg PO QID 90 Days Qty: 360 3RF Spiriva with HandiHaler 18 mcg capsule, w/inhalation device 1 cap inhalation DAILY Qty: 60 4RF Rx Instructions: puncture 1 cap using device; one dose = 2 inhalations krill oil 500 mg capsule 500 mg PO DAILY Qty: 90 4RF atorvastatin 20 mg tablet 20 mg PO DAILY calcium carbonate 600 mg calcium (1,500 mg) tablet 600 mg PO DAILY folic acid 1 mg tablet 1 mg PO DAILY furosemide 20 mg tablet 20 mg PO DAILY mesalamine 1.2 gram tablet,delayed release (DR/EC) 2.4 g PO BID Rx Instructions: TAKE TWO TABLETS BY MOUTH TWICE DAILY potassium chloride 20 mEq tablet extended release 20 meq PO DAILY Referrals: Ariadna Cruz MD [Primary Care Provider] - Coding Level of Care Code ED [employer] Clerk for Jeny Singh
--- NOTE | 2023-09-20 16:24 | XRR_ITS ---
PROCEDURE INFORMATION: Exam: XR Chest Exam date and time: 09/20/2023 4:41 PM Age: 73 years old Clinical indication: Condition or disease; Lung condition and disease; Copd; Complications not specified; Additional info: Hip FX, copd TECHNIQUE: Imaging protocol: Radiologic exam of the chest. Views: 1 view. COMPARISON: CR XR chest 1V portable [id number] 06/25/2023 1:39 PM FINDINGS: Lungs: Unremarkable. No consolidation. Pleural spaces: Unremarkable. No pleural effusion. No pneumothorax. Heart/Mediastinum: Unremarkable. No cardiomegaly. Bones/joints: Unremarkable. XR/XR chest 1V portable [id number] IMPRESSION: No acute findings.
--- NOTE | 2023-09-20 16:25 | ECG_ITS ---
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 Measurements Intervals Mobile Rate: 78 P: 57 ID: [id number] QRS: 44 QRSD: 79 T: 60 QT: 362 QTc: 413 Interpretive Statements SINUS RHYTHM No previous ECG available for comparison Electronically Signed On 09-20-2023 19:29:05 WEBMASTER by Diamond Reeves M.D. [email or web address]
[2023-09-20] MEDS: fentaNYL 50 mcg/mL INJ 2mL IVP (16:29)
[2023-09-20] MEDS: sodium chloride 0.9% 1,000 ML 60 ML IV (17:06)
[2023-09-20] MEDS: pantoprazole 40 mg SDV IVP (17:07)
[2023-09-20] MEDS: heparin 5,000 unit/mL INJ 1 mL 5000 UNIT SUBCUT (17:07)
[2023-09-20 17:42] LABS: Basophils % 0.3 %; Eosinophils % 0.3 %; Hematocrit 40.4 % (36-47); Lymphocytes # 1.1 10^3/uL (0.8-4.8); Lymphocytes % 7.6 %; Mean Corpuscular HGB Conc 32.7 g/dL (30-55); Mean Corpuscular Hemoglobin 32.6 pg (27-33); Mean Corpuscular Volume 99.8 fl (85-98); Mean Platelet Volume 9.5 fL (7.4-10.4); Monocytes # 0.7 10^3/uL (0.2-0.9); Monocytes % 4.8 %; Neutrophils % 86.1 %; Nucleated Red Blood Cells % 0 %; Platelet Count 212 10^3/cmm (157-399); Red Blood Count 4.05 10^6/uL (3.85-5.65); Red Cell Distribution Width 13.1 % (12.1-15.1); White Blood Count 14.52 10^3/uL (3.29-11.43)
[2023-09-20 18:20] LABS: Alanine Aminotransferase 13 U/L (0-33); Albumin Level 3.6 g/dL (3.5-5.2); Alkaline Phosphatase 62 U/L (35-105); Anion Gap 12.2 (5-19); Aspartate Amino Transferase 26 U/L (0-32); Blood Urea Nitrogen 18 mg/dL (8-23); Calcium 9.6 mg/dL (8.5-10.5); Carbon Dioxide 24 mmol/L (22-29); Chloride 104 mmol/L (98-107); Globulin 2.9 g/dL (1.3-4.6); Glucose 99 mg/dL (65-115); Osmolality Calculated 284 mOsm/kg (285-295); Potassium 4.2 mmol/L (3.5-5.1); Sodium 136 mmol/L (136-145); Thyroid Stimulating Hormone 4.81 uIU/mL (0.27-4.20); Total Protein 6.5 g/dL (6.6-8.7)
--- NOTE | 2023-09-20 19:10 | P.HP_ITS ---
Providers/Chief Complaint 2 Admitting Physician: Minoo Daniels MD Primary Care Provider: Ariadna Cruz MD Chief Complaint: fall History of Present Illness Darling Gonzalez is a 73 year old female with history of Crohn's disease, myasthenia, presented after sustaining a fall at a parking lot of [employer] and altered. Patient is stating that she mis-stepped on a concrete floor, pivoted and fell on the ground. Patient lives alone, does not use oxygen on daily basis, no recent fever, chest pain, syncopal event or seizure. Patient is on medications for her myasthenia gravis and chronic disease. No active decompensation. In the ER she has been diagnosed with right femoral neck fracture orthopedics consulted She will be kept n.p.o. after midnight, no active pain, Maldonado catheter has been inserted. She is hemodynamically stable No previous history of coronary disease or CHF. Review of Systems 2 Const: Denies: fever(s) Eyes: Denies: change in vision ENMT: Denies: throat pain Card: Denies: chest pain Resp: Denies: dyspnea GI: Denies: abdominal pain : Denies: flank pain Musc: Reports: extremity pain, joint pain and joint swelling Skin/Breast: Denies: rash Neuro: Denies: headache(s) Medications/Allergies Home Medications Medication Instructions Recorded Confirmed Last Taken Type krill oil 500 mg capsule 500 mg PO DAILY #90 caps 11/03/20 09/20/23 09/20/23 Rx albuterol sulfate 90 mcg/actuation 2 puff inhalation Q6H PRN 08/15/23 09/20/23 Unknown Rx aerosol inhaler (ProAir HFA) shortness of breath or wheezing #8.5 grams cholecalciferol (vitamin D3) 1,250 1,250 mcg PO Q30D #30 caps 08/15/23 09/20/23 08/02/23 Rx mcg (50,000 unit) capsule lisinopril 20 1 tab PO BID #180 tabs 08/15/23 09/20/23 09/20/23 Rx mg-hydrochlorothiazide 12.5 mg tablet mometasone-formoterol HFA 200 2 puff inhalation BID #13 grams 08/15/23 09/20/23 09/20/23 Rx mcg-5 mcg/actuation aerosol inhaler (Dulera) pyridostigmine bromide 60 mg tablet 60 mg PO QID 90 days #360 tabs 08/15/23 09/20/23 09/20/23 Rx tiotropium bromide 18 mcg capsule 1 cap inhalation DAILY #60 08/15/23 09/20/23 09/19/23 Rx with inhalation device (Spiriva inhalations with HandiHaler) atorvastatin 20 mg tablet 20 mg PO DAILY 09/20/23 09/20/23 09/20/23 History calcium carbonate 600 mg calcium 600 mg PO DAILY 09/20/23 09/20/23 09/20/23 History (1,500 mg) tablet folic acid 1 mg tablet 1 mg PO DAILY 09/20/23 09/20/23 09/20/23 History furosemide 20 mg tablet 20 mg PO DAILY 09/20/23 09/20/23 09/20/23 History mesalamine 1.2 gram tablet,delayed 2.4 g PO BID 09/20/23 09/20/23 09/20/23 History release potassium chloride 20 mEq 20 meq PO DAILY 09/20/23 09/20/23 09/20/23 History tablet,extended release Allergies Allergy/AdvReac Type Severity Reaction Status Date / Time Influenza Virus Vaccines Allergy Intermediate Numbness Verified 08/20/23 08:14 niacin AdvReac Intermediate hives,itching, Verified 08/20/23 08:14 ankle swelling PFSH Acute 2 PFSH: Medical History Ischemic colitis History of colon polyps Clostridium difficile colitis Myasthenia gravis Post-menopause Hypertension Hyperlipidemia COPD (chronic obstructive pulmonary disease) Crohn's disease Surgical History Hx of colonoscopy (~2017) showed polyps which were not removed H/O oophorectomy History of hysterectomy Family History Other CAD (coronary artery disease) Social History Smoking and tobacco/nicotine status: never used tobacco/nicotine Alcohol intake: current Alcohol intake frequency: holidays/special occasions only Substance/Drug Use: never Lives independently: Yes Housing: House Current occupational status: retired 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 Current gender identity: Female Vitals/I&O/Wt Last Vital Signs Temp 97.8 F 09/20/23 15:32 Pulse 93 09/20/23 15:32 Resp 18 09/20/23 15:32 BP 142/78 09/20/23 15:32 Pulse Ox 96 09/20/23 15:32 O2 Del Method Nasal Cannula 09/20/23 15:32 O2 Flow Rate 2 09/20/23 15:32 Physical Exam 2 Narrative: Awake and alert Dehydrated GCS 15 No active exacerbation of myasthenia gravis No active signs of Crohn disease flareup Pleasant cooperative Doing well on 2 L nasal cannula Maldonado catheter in place Hemodynamically stable S1, S2 Data 09/20/23 17:29 09/20/23 17:29 A&P Assessment and plan (1) Hypertension: Qualifiers: Hypertension type: essential hypertension Qualified Code(s): I10 - Essential (primary) hypertension (2) B12 deficiency: (3) Crohn's disease: Qualifiers: Gastrointestinal tract location: unspecified location Digestive disease complication type: without complication Qualified Code(s): K50.90 - Crohn's disease, unspecified, without complications (4) Fracture of hip, right, closed: Qualifiers: Encounter type: initial encounter Qualified Code(s): S72.001A - Fracture of unspecified part of neck of right femur, initial encounter for closed fracture (5) Myasthenia gravis: (6) COPD (chronic obstructive pulmonary disease): Qualifiers: COPD type: unspecified COPD Qualified Code(s): J44.9 - Chronic obstructive pulmonary disease, unspecified Plan Mechanical fall resulting in right hip fracture Patient will stay n.p.o. after midnight No active flareup of Crohn disease or myasthenia Carries history of COPD Currently hemodynamic stable Will keep her on opioids along bowel regimen DVT prophylaxis: With SCDs Patient will need PT evaluation after her surgery She lives alone, depending on PT evaluation for disposition will be made regarding her disposition Continue her medications for myasthenia and Crohn's Patient is stating that she has not taken steroids in a long time No active cardiac disease, no history of congestive heart failure No preoperative workup needed before surgery Full code Patient is agreeable for surgery in the morning Attestations 2 Medical Necessity Statement*: Continue medical management Diagnoses Essential hypertension I10 Hypertension type: essential hypertension B12 deficiency E53.8 Crohn's disease without complication, unspecified gastrointestinal tract location K50.90 Gastrointestinal tract location: unspecified location Digestive disease complication type: without complication Fracture of hip, right, closed S72.001A Encounter type: initial encounter Myasthenia gravis G70.00 Chronic obstructive pulmonary disease, unspecified COPD type J44.9 COPD type: unspecified COPD
[2023-09-20 19:38] LABS: Add Urine Culture? No; Add Urine Microscopic? YES; Bacteria Urine TRACE /hpf; Bilirubin Urine Neg (Negative); Blood Urine Trace (Negative); Glucose Urine UA Norm (Normal); Ketones Urine Negative (Negative); Leukocyte Esterase Urine Negative (Negative); Nitrate Urine Negative (Negative); Protein Urine Neg (Negative); RBC Urine 0-4 /hpf (0-2); Specific Gravity, Urine 1.015 (1.005-1.030); Squamous Epithelial Cell Urine 0-4 /hpf (0-5); Urine Appearance Clear (CLEAR); Urine Color Yellow (Yellow); Urobilinogen Urine Norm (Negative); WBC Urine 0-4 /hpf (0-5); pH Urine 5 (5-7)
[2023-09-20 19:45] VITALS: BP 148/84; PULSE 82; RESP 14; O2SAT 95
[2023-09-20 20:20] VITALS: BMI 20.9
[2023-09-20 20:23] VITALS: BP 165/89; PULSE 84; RESP 14; TEMP 36.6; O2SAT 90
[2023-09-20 21:46] VITALS: RESP 18
[2023-09-20] MEDS: morphine 4 mg/mL SDV 1 mL 2 MG IVP (21:46)
[2023-09-20 23:00] VITALS: BP 146/75; PULSE 81; RESP 16; TEMP 36.6; O2SAT 93
[2023-09-20 23:54] VITALS: PULSE 81; RESP 16; O2SAT 93
[2023-09-21] VITALS (23 sets, daily range): BP systolic 96–147; BP diastolic 56–79; PULSE 71–105; RESP 13–18; TEMP 36.4–36.9; O2SAT 91–98
[2023-09-21] MEDS: morphine 4 mg/mL SDV 1 mL 2 MG IVP (01:25)
[2023-09-21] MEDS: HYDROmorphone 1 mg/mL INJ 1 mL 0.4 MG IVP ×3 (02:18→12:16)
[2023-09-21 05:47] LABS: Basophils % 0.4 %; Eosinophils # 0.1 10^3/uL (0.0-0.8); Eosinophils % 1.3 %; Lymphocytes % 11.2 %; Mean Corpuscular HGB Conc 32.6 g/dL (30-55); Mean Corpuscular Hemoglobin 32.6 pg (27-33); Mean Platelet Volume 10.2 fL (7.4-10.4); Monocytes # 0.5 10^3/uL (0.2-0.9); Monocytes % 5.9 %; Neutrophils # 7.38 10^3/uL (1.8-7.7); Neutrophils % 80.7 %; Nucleated Red Blood Cells % 0 %; Platelet Count 228 10^3/cmm (157-399); Red Cell Distribution Width 13.1 % (12.1-15.1); White Blood Count 9.16 10^3/uL (3.29-11.43)
[2023-09-21 06:10] LABS: Albumin Level 3.3 g/dL (3.5-5.2); Alkaline Phosphatase 54 U/L (35-105); Blood Urea Nitrogen 13 mg/dL (8-23); Calcium 8.5 mg/dL (8.5-10.5); Carbon Dioxide 18 mmol/L (22-29); Chloride 105 mmol/L (98-107); Globulin 2.8 g/dL (1.3-4.6); Glucose 97 mg/dL (65-115); Magnesium 1.3 mg/dL (1.7-2.3); Osmolality Calculated 282 mOsm/kg (285-295); Sodium 136 mmol/L (136-145); Total Bilirubin 1.2 mg/dL (0.15-1.2); Total Protein 6.1 g/dL (6.6-8.7)
[2023-09-21 06:17] LABS: Alanine Aminotransferase 10 U/L (0-33); Anion Gap 17.2 (5-19); Aspartate Amino Transferase 30 U/L (0-32); Potassium 4.2 mmol/L (3.5-5.1)
--- NOTE | 2023-09-21 07:50 | P.CONIM_ITS ---
Providers/Reason For Consult 2 Consulting Physician/Specialty*: hospitalist Reason for Consult*: Right hip fracture Attending Physician: Minoo Daniels MD Primary Care Provider: Ariadna Cruz MD History of Present Illness History of Present Illness Darling Gonzalez is a 73 year old female presented after sustaining a fall at a parking lot of [employer] and altered. Patient is stating that she mis-stepped on a concrete floor, pivoted and fell on the ground. Patient lives alone, does not use oxygen on daily basis, no recent fever, chest pain, syncopal event or seizure. Patient is on medications for her myasthenia gravis and chronic disease. Review of Systems 2 Const: Denies: fever(s) Eyes: Denies: change in vision ENMT: Denies: throat pain Card: Denies: chest pain Resp: Denies: dyspnea GI: Denies: abdominal pain : Denies: flank pain Musc: Reports: extremity pain, joint pain and joint swelling Skin/Breast: Denies: rash Neuro: Denies: headache(s) Medications/Allergies Home Medications Medication Instructions Recorded Confirmed Last Taken Type krill oil 500 mg capsule 500 mg PO DAILY #90 caps 11/03/20 09/20/23 09/20/23 Rx albuterol sulfate 90 mcg/actuation 2 puff inhalation Q6H PRN 08/15/23 09/20/23 Unknown Rx aerosol inhaler (ProAir HFA) shortness of breath or wheezing #8.5 grams cholecalciferol (vitamin D3) 1,250 1,250 mcg PO Q30D #30 caps 08/15/23 09/20/23 08/02/23 Rx mcg (50,000 unit) capsule lisinopril 20 1 tab PO BID #180 tabs 08/15/23 09/20/23 09/20/23 Rx mg-hydrochlorothiazide 12.5 mg tablet mometasone-formoterol HFA 200 2 puff inhalation BID #13 grams 08/15/23 09/20/23 09/20/23 Rx mcg-5 mcg/actuation aerosol inhaler (Dulera) pyridostigmine bromide 60 mg tablet 60 mg PO QID 90 days #360 tabs 08/15/23 09/20/23 09/20/23 Rx tiotropium bromide 18 mcg capsule 1 cap inhalation DAILY #60 11/09/20/23 09/19/23 Rx with inhalation device (Spiriva inhalations with HandiHaler) atorvastatin 20 mg tablet 20 mg PO DAILY 09/20/23 09/20/23 09/20/23 History calcium carbonate 600 mg calcium 600 mg PO DAILY 09/20/23 09/20/23 09/20/23 History (1,500 mg) tablet folic acid 1 mg tablet 1 mg PO DAILY 09/20/23 09/20/23 09/20/23 History furosemide 20 mg tablet 20 mg PO DAILY 09/20/23 09/20/23 09/20/23 History mesalamine 1.2 gram tablet,delayed 2.4 g PO BID 09/20/23 09/20/23 09/20/23 History release potassium chloride 20 mEq 20 meq PO DAILY 09/20/23 09/20/23 09/20/23 History tablet,extended release Allergies Allergy/AdvReac Type Severity Reaction Status Date / Time Influenza Virus Vaccines Allergy Intermediate Numbness Verified 08/20/23 08:14 niacin AdvReac Intermediate hives,itching, Verified 08/20/23 08:14 ankle swelling Current Medications Generic Name Dose Route Start Last Admin Trade Name Freq PRN Reason Stop Dose Admin Hydromorphone HCl 0.4 mg 09/21/23 01:34 09/21/23 06:34 Hydromorphone 1 Mg/Ml Inj 1 Ml IVP 0.4 mg Q4H PRN Administration SEVERE PAIN Sodium Chloride 1,000 mls @ 60 mls/hr 09/20/23 17:00 09/20/23 17:06 Sodium Chloride 0.9% IV 60 mls/hr .[id number] VANGIE Administration Morphine Sulfate 2 mg 09/20/23 16:51 09/21/23 01:25 Morphine 4 Mg/Ml Sdv 1 Ml IVP 2 mg Q4H PRN Administration SEVERE PAIN Pantoprazole Sodium 40 mg 09/20/23 17:00 09/20/23 17:07 Pantoprazole 40 Mg Sdv IVP 40 mg Q24H VANGIE Administration Pyridostigmine [place] 60 mg 09/20/23 19:54 09/20/23 21:50 Pyridostigmine 60 Mg Tablet PO Not Given QID VANGIE PFSH Acute 2 PFSH: Medical History Ischemic colitis History of colon polyps Clostridium difficile colitis Myasthenia gravis Post-menopause Hypertension Hyperlipidemia COPD (chronic obstructive pulmonary disease) Crohn's disease Surgical History Hx of colonoscopy (~2018) showed polyps which were not removed H/O oophorectomy History of hysterectomy Family History Other CAD (coronary artery disease) Social History Smoking and tobacco/nicotine status: never used tobacco/nicotine Alcohol intake: current Alcohol intake frequency: holidays/special occasions only Substance/Drug Use: never Lives independently: Yes Housing: House Current occupational status: retired 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 Urinary Catheter Management: Maldonado: Cath Placed During This Visit: yes Reason for Continuing Indwelling Catheter: Perioperative Use in Selected Surgeries Urinary Catheter Date of Insertion: 09/20/23 Urinary Catheter Time of Insertion: 19:00 Data 09/21/23 05:30 09/21/23 05:30 A&P Assessment and plan (1) Fracture of hip, right, closed: Plan to do right hip hemiarthroplasty. Qualifiers: Encounter type: initial encounter Qualified Code(s): S72.001A - Fracture of unspecified part of neck of right femur, initial encounter for closed fracture Consult Attestations 2 Medical Necessity Statement: Hip fracture Coding Level of Care Code Acute Code for g Fwd Diagnoses Fracture of hip, right, closed S72.001A Encounter type: initial encounter
[2023-09-21] MEDS: ceFAZolin 2,000 MG in sodium chloride 0.9% (plus) 50 ML 100 MG IV ×2 (08:05→16:42)
--- NOTE | 2023-09-21 08:20 | P.PN_ITS ---
Subjective 2 Subjective: seen s/p surgery says she is comfortable for most part. Vitals/I&O/Wt Last Vital Signs Temp 97.8 F 09/21/23 07:52 Pulse 78 09/21/23 07:52 Resp 16 09/21/23 07:52 BP 126/66 09/21/23 07:52 Pulse Ox 91 09/21/23 07:52 O2 Del Method Nasal Cannula 09/21/23 07:52 O2 Flow Rate 3 09/21/23 07:48 09/20/23 09/21/23 09/21/23 22:59 06:59 14:59 Output Total 300 / 300 450 / 750 Balance -300 / -300 -450 / -750 Weight last 48 hrs Weight 74.021 kg Weight 56.971 kg Physical Exam 2 Narrative: Awake and alert Dehydrated GCS 15 No active exacerbation of myasthenia gravis No active signs of Crohn disease flareup Pleasant cooperative Doing well on 2 L nasal cannula Maldonado catheter in place Hemodynamically stable S1, S2 Urinary Catheter Management: Maldonado: Cath Placed During This Visit: yes Reason for Continuing Indwelling Catheter: Perioperative Use in Selected Surgeries Urinary Catheter Date of Insertion: 09/20/23 Urinary Catheter Time of Insertion: 19:00 Data 09/21/23 05:30 09/21/23 05:30 A&P Assessment and plan (1) Hypertension: Qualifiers: Hypertension type: essential hypertension Qualified Code(s): I10 - Essential (primary) hypertension (2) B12 deficiency: (3) Crohn's disease: Qualifiers: Gastrointestinal tract location: unspecified location Digestive disease complication type: without complication Qualified Code(s): K50.90 - Crohn's disease, unspecified, without complications (4) Fracture of hip, right, closed: Qualifiers: Encounter type: initial encounter Qualified Code(s): S72.001A - Fracture of unspecified part of neck of right femur, initial encounter for closed fracture (5) Myasthenia gravis: (6) COPD (chronic obstructive pulmonary disease): Qualifiers: COPD type: unspecified COPD Qualified Code(s): J44.9 - Chronic obstructive pulmonary disease, unspecified Plan Mechanical fall resulting in right hip fracture is s/p surgery, post op day 0 No active flareup of Crohn disease or myasthenia Carries history of COPD Currently hemodynamic stable Will keep her on opioids along bowel regimen DVT prophylaxis: With SCDs Patient will need PT evaluation after her surgery She lives alone, depending on PT evaluation for disposition will be made regarding her disposition Continue her medications for myasthenia and Crohn's Patient is stating that she has not taken steroids in a long time No active cardiac disease, no history of congestive heart failure No preoperative workup needed before surgery will get post op labs Full code Attestations 2 Medical Necessity Statement*: Continue medical management Diagnoses Essential hypertension I10 Hypertension type: essential hypertension B12 deficiency E53.8 Crohn's disease without complication, unspecified gastrointestinal tract location K50.90 Gastrointestinal tract location: unspecified location Digestive disease complication type: without complication Fracture of hip, right, closed S72.001A Encounter type: initial encounter Myasthenia gravis G70.00 Chronic obstructive pulmonary disease, unspecified COPD type J44.9 COPD type: unspecified COPD
--- NOTE | 2023-09-21 09:14 | PM.OP ---
Operative Report Date of procedure: September 21, 2023 Pre-op diagnosis: right femoral neck fracture Post-op diagnosis: same Procedure done: Right hip hemiarthroplasty Surgeon: Spencer Garcia DO Estimated blood loss (mL): 100 Procedure: Right hip hemiarthroplasty Patient will the operative suite after undergoing anesthesia was placed in the lateral decubitus position all areas impingement well-padded. Patient was prepped and draped normal sterile fashion. Skin incision made over the right lateral hip. Modified Small approach was used. IT band was split abductors taken down anteriorly along with the capsule. Femoral neck was identified cut 1 fingerbreadth above the lesser trochanter. Femoral head was then removed and measured to be 43. Next tension was brought to the femur. The box office attendant was used followed by the canal finder and lateralizer. Canal was broached up to 3. Size 3 stem was inserted and a -3 neck length was used. This is all [employer] product. Once the hip was reduced slightly stable position. Wounds were closed in layered fashion probe was used to close the abductors and IT band was closed with #1 Vicryl. Skin was closed with 2-0 Vicryl and issa. Sterile dressings were applied patient transferred to the PACU in stable condition.
[2023-09-21] MEDS: fentaNYL 50 mcg/mL INJ 2mL 100 MCG IVP (09:35)
--- NOTE | 2023-09-21 09:50 | XRR_ITS ---
PROCEDURE INFORMATION: Exam: XR Right Hip Exam date and time: 09/21/2023 10:39 AM Age: 73 years old Clinical indication: Hip pain; Prior surgery; Surgery date: Post-operative (0-2 days); Surgery type: Right hip replacement; Additional info: Post op TECHNIQUE: Imaging protocol: Radiologic exam of the right hip. Views: 1 view hip with pelvis when performed. COMPARISON: CR XR hip RT 2-3V wo/w pel* [id number] 09/20/2023 4:47 PM FINDINGS: Bones/joints: arthroplasty well aligned without complication. Soft tissues: Postoperative changes. XR/XR hip RT 1V wo/w pel [id number] IMPRESSION: No unexpected postoperative findings.
--- NOTE | 2023-09-21 10:57 | P.ANESASSM_ITS ---
Pre-Anesthetic Assessment Height/Weight: Height 1.65 m Weight 74.021 kg Temp Pulse Resp BP Pulse Ox O2 Del Method O2 Flow Rate 98.0 F 83 16 121/69 97 Nasal Cannula 3 09/21/23 10:30 09/21/23 10:30 09/21/23 10:30 09/21/23 10:30 09/21/23 10:30 09/21/23 10:30 09/21/23 09:52 Operation Date: 09/21/23 08:30 Proposed Procedures p Hip Screw Closed Reduction Percutaneous Pinning Hip Screw(Right) - Spencer H Radha, DO Operation Date: 09/21/23 12:45 Proposed Procedures p ORIF Femur(Right) - Spencer H Radha, DO Familial anesthetic complications: none Was Beta Lore taken within 24 hours: N/A Was Clonidine taken within 24 hours: N/A Last intake: Intake Last Liquid Date 09/20/23 Last Liquid Time 15:00 Last Solid Date 09/20/23 Last Solid Time 13:00 Social No alcohol and No tobacco Exam alert, oriented x 3, clear to auscultation bilaterally and regular rate & rhythm Airway Submandibular: within normal limits Cervical ROM: within normal limits Mallampati: Class II Dentition: false (upper) Pulmonary Chronic Obstructive Pulmonary Disease CV/HEM Anemia and Hypertension GI Crohn's Neuropsych Myasthenia Gravis Anesthetic Plan ASA status: 3 Anesthesia: General Medications/Allergies Home Medications Medication Instructions Recorded Confirmed Last Taken Type krill oil 500 mg capsule 500 mg PO DAILY #90 caps 11/03/20 09/20/23 09/20/23 Rx albuterol sulfate 90 mcg/actuation 2 puff inhalation Q6H PRN 08/15/23 09/20/23 Unknown Rx aerosol inhaler (ProAir HFA) shortness of breath or wheezing #8.5 grams cholecalciferol (vitamin D3) 1,250 1,250 mcg PO Q30D #30 caps 08/15/23 09/20/23 08/02/23 Rx mcg (50,000 unit) capsule lisinopril 20 1 tab PO BID #180 tabs 08/15/23 09/20/23 09/20/23 Rx mg-hydrochlorothiazide 12.5 mg tablet mometasone-formoterol HFA 200 2 puff inhalation BID #13 grams 08/15/23 09/20/2323 Rx mcg-5 mcg/actuation aerosol inhaler (Dulera) pyridostigmine bromide 60 mg tablet 60 mg PO QID 90 days #360 tabs 08/15/23 09/20/23 09/20/23 Rx tiotropium bromide 18 mcg capsule 1 cap inhalation DAILY #60 08/15/23 09/20/23 09/19/23 Rx with inhalation device (Spiriva inhalations with HandiHaler) atorvastatin 20 mg tablet 20 mg PO DAILY 09/20/23 09/20/23 09/20/23 History calcium carbonate 600 mg calcium 600 mg PO DAILY 09/20/23 09/20/23 09/20/23 History (1,500 mg) tablet folic acid 1 mg tablet 1 mg PO DAILY 09/20/23 09/20/23 09/20/23 History furosemide 20 mg tablet 20 mg PO DAILY 09/20/23 09/20/23 09/20/23 History mesalamine 1.2 gram tablet,delayed 2.4 g PO BID 09/20/23 09/20/23 09/20/23 History release potassium chloride 20 mEq 20 meq PO DAILY 09/20/23 09/20/23 09/20/23 History tablet,extended release Allergies Allergy/AdvReac Type Severity Reaction Status Date / Time Influenza Virus Vaccines Allergy Intermediate Numbness Verified 08/20/23 08:14 niacin AdvReac Intermediate hives,itching, Verified 08/20/23 08:14 ankle swelling Current Medications Generic Name Dose Route Start Last Admin Trade Name Freq PRN Reason Stop Dose Admin Hydromorphone HCl 0.4 mg 09/21/23 01:34 09/21/23 06:34 Hydromorphone 1 Mg/Ml Inj 1 Ml IVP 0.4 mg Q4H PRN Administration SEVERE PAIN Sodium Chloride 1,000 mls @ 60 mls/hr 09/20/23 17:00 09/21/23 09:50 Sodium Chloride 0.9% IV Infused .[id number] VANGIE Infusion Morphine Sulfate 2 mg 09/20/23 16:51 09/21/23 01:25 Morphine 4 Mg/Ml Sdv 1 Ml IVP 2 mg Q4H PRN Administration SEVERE PAIN Pantoprazole Sodium 40 mg 09/20/23 17:00 09/20/23 17:07 Pantoprazole 40 Mg Sdv IVP 40 mg Q24H VANGIE Administration Pyridostigmine [place] 60 mg 09/20/23 19:54 09/20/23 21:50 Pyridostigmine 60 Mg Tablet PO Not Given QID VANGIE PFSH Anesthesia Medical History Ischemic colitis History of colon polyps Clostridium difficile colitis Myasthenia gravis Post-menopause Hypertension Hyperlipidemia COPD (chronic obstructive pulmonary disease) Crohn's disease Surgical History Hx of colonoscopy (~2018) showed polyps which were not removed H/O oophorectomy History of hysterectomy Family History Other CAD (coronary artery disease) Social History Smoking and tobacco/nicotine status: never used tobacco/nicotine Alcohol intake: current Alcohol intake frequency: holidays/special occasions only Substance/Drug Use: never Lives independently: Yes Housing: House Current occupational status: retired 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 Current gender identity: Female Data Anesthesia 09/21/23 05:30 09/21/23 05:30 Short CBC 09/20/23 09/21/23 Range/Units 17:29 05:30 WBC 14.52 H 9.16 (3.29-11.43) 10^3/uL Hgb 13.20 12.40 (11.27-16.99) g/dL Hct 40.4 38.0 (36-47) % MCV 99.8 H 100.0 H (85-98) fl Plt Count 212 228 (157-399) 10^3/cmm Neut % (Auto) 86.1 80.7 % Neut # (Auto) 12.50 H 7.38 (1.8-7.7) 10^3/uL BMP 09/20/23 09/21/23 17:29 05:30 Sodium 136 136 Potassium 4.2 4.2 Chloride 104 105 Carbon Dioxide 24 18 L BUN 18 13 Creatinine 0.8 0.7 Glucose 99 97 Calcium 9.6 8.5 Liver Function 09/20/23 09/21/23 Range/Units 17:29 05:30 Total Bilirubin 1.0 1.2 (0.15-1.2) mg/dL AST 26 30 (0-32) U/L ALT 13 10 (0-33) U/L Alkaline Phosphatase 62 54 (35-105) U/L Albumin 3.6 3.3 L (3.5-5.2) g/dL Urine 09/20/23 Range/Units 19:02 Urine Color Yellow (Yellow) Urine Appearance Clear (CLEAR) Urine pH 5 (5-7) Ur Specific [place] 1.015 (1.005-1.030) Urine Protein Neg (Negative) Urine Glucose (UA) Norm (Normal) Urine Ketones Negative (Negative) Urine Nitrate Negative (Negative) Urine Bilirubin Neg (Negative) Ur Leukocyte Esterase Negative (Negative) Urine RBC 0-4 H (0-2) /hpf Urine WBC 0-4 H (0-5) /hpf Cardiac Studies: 2 No Data to Display
--- NOTE | 2023-09-21 10:58 | ANE.PACU2 ---
Inpatient post-anesthesia follow up: Airway intact: Yes Vital signs: Temperature 98.0 F Pulse Rate 83 Respiratory Rate 16 Blood Pressure 121/69 Pulse Oximetry 97 Oxygen Delivery Me thod Nasal Cannula Oxygen Flow Rate 3 Fraction of Inspir ed Oxygen Hydration adequate: Yes Nausea and vomiting: No Pain level: 3 Mental status: Baseline
[2023-09-21] MEDS: ipratropium 0.5 mg/2.5 mL Neb INHALATION (11:02)
[2023-09-21] MEDS: pyridostigmine 60 mg Tablet PO ×3 (12:20→20:44)
[2023-09-21 13:25] LABS: Basophils % 0.3 %; Eosinophils % 0.1 %; Hematocrit 42.4 % (36-47); Lymphocytes # 0.3 10^3/uL (0.8-4.8); Lymphocytes % 2.3 %; Mean Corpuscular HGB Conc 32.3 g/dL (30-55); Mean Corpuscular Volume 102.2 fl (85-98); Mean Platelet Volume 9.9 fL (7.4-10.4); Monocytes # 0.3 10^3/uL (0.2-0.9); Monocytes % 1.8 %; Neutrophils # 13.26 10^3/uL (1.8-7.7); Nucleated Red Blood Cells % 0 %; Platelet Count 203 10^3/cmm (157-399); Red Blood Count 4.15 10^6/uL (3.85-5.65); Red Cell Distribution Width 13.2 % (12.1-15.1); White Blood Count 13.95 10^3/uL (3.29-11.43)
[2023-09-21 13:43] LABS: Anion Gap 15.3 (5-19); Blood Urea Nitrogen 12 mg/dL (8-23); Calcium 7.9 mg/dL (8.5-10.5); Carbon Dioxide 19 mmol/L (22-29); Chloride 105 mmol/L (98-107); Glucose 208 mg/dL (65-115); Osmolality Calculated 286 mOsm/kg (285-295); Potassium 4.3 mmol/L (3.5-5.1); Sodium 135 mmol/L (136-145)
[2023-09-21] MEDS: HYDROcodone-acetaminophen 5-325 mg Tablet PO (14:54)
[2023-09-21] MEDS: pantoprazole 40 mg SDV IVP (16:50)
[2023-09-22] VITALS (7 sets, daily range): BP systolic 100–125; BP diastolic 64–72; PULSE 82–112; RESP 14–18; TEMP 36.4–36.8; O2SAT 87–97; BMI 23.2
[2023-09-22] MEDS: ceFAZolin 2,000 MG in sodium chloride 0.9% (plus) 50 ML 100 MG IV ×2 (00:58→08:02)
[2023-09-22] MEDS: sodium chloride 0.9% 1,000 ML 60 ML IV ×2 (02:43→18:04)
[2023-09-22 04:40] LABS: Basophils % 0.3 %; Eosinophils % 0.3 %; Hematocrit 36.2 % (36-47); Lymphocytes % 8.7 %; Mean Corpuscular HGB Conc 33.4 g/dL (30-55); Mean Corpuscular Hemoglobin 33.2 pg (27-33); Mean Corpuscular Volume 99.5 fl (85-98); Monocytes # 0.7 10^3/uL (0.2-0.9); Monocytes % 6.1 %; Neutrophils # 9.98 10^3/uL (1.8-7.7); Neutrophils % 84.1 %; Nucleated Red Blood Cells % 0 %; Platelet Count 150 10^3/cmm (157-399); Red Blood Count 3.64 10^6/uL (3.85-5.65); Red Cell Distribution Width 13.2 % (12.1-15.1); White Blood Count 11.87 10^3/uL (3.29-11.43)
[2023-09-22 05:02] LABS: Blood Urea Nitrogen 11 mg/dL (8-23); Calcium 7.2 mg/dL (8.5-10.5); Carbon Dioxide 19 mmol/L (22-29); Chloride 107 mmol/L (98-107); Glucose 134 mg/dL (65-115); Magnesium 1.4 mg/dL (1.7-2.3); Osmolality Calculated 281 mOsm/kg (285-295); Sodium 135 mmol/L (136-145)
[2023-09-22 05:05] LABS: Anion Gap 13.3 (5-19); Potassium 4.3 mmol/L (3.5-5.1)
[2023-09-22] MEDS: HYDROcodone-acetaminophen 5-325 mg Tablet PO ×4 (06:08→23:21)
[2023-09-22] MEDS: folic acid 1 mg Tablet PO (08:02)
[2023-09-22] MEDS: atorvastatin 40 mg Tablet 20 MG PO (08:02)
[2023-09-22] MEDS: pyridostigmine 60 mg Tablet PO ×4 (08:02→23:21)
[2023-09-22] MEDS: calcium carbonate 500 mg Chew Tablet PO (08:02)
[2023-09-22] MEDS: magnesium sulfate premix 4 GM/100 ML PREMIX IV (08:56)
--- NOTE | 2023-09-22 10:23 | P.PN_ITS ---
Subjective 2 Subjective: Patient is doing well sitting in bed pain controlled ambulated twice yesterday. Vitals/I&O/Wt Last Vital Signs Temp 98.2 F 09/22/23 04:00 Pulse 82 09/22/23 04:00 Resp 17 09/22/23 04:00 BP 102/64 09/22/23 04:00 Pulse Ox 95 09/22/23 04:00 O2 Del Method Room Air 09/22/23 04:00 O2 Flow Rate 2 09/21/23 23:55 09/21/23 09/22/23 09/22/23 22:59 06:59 14:59 Intake Total 290 / 1800 50 / 1850 290 / 290 Output Total 450 / 720 550 / 1270 Balance -160 / 1080 -500 / 580 290 / 290 Weight last 48 hrs Weight 139 lb 9.6 oz Weight 163 lb 3 oz Weight 125 lb 9.6 oz Physical Exam 2 Narrative: Seen in bed doing well no complaints Urinary Catheter Management: Maldonado: Cath Placed During This Visit: yes, but has since been removed by the nurse Reason for Continuing Indwelling Catheter: Decision to DC Catheter Urinary Catheter Date of Insertion: 09/20/23 Urinary Catheter Time of Insertion: 19:00 Date Urinary Catheter Removed: 09/22/23 Time Urinary Catheter Discontinued: 06:27 Data 09/22/23 04:25 09/22/23 04:25 A&P Assessment and plan (1) S/P hip hemiarthroplasty: Postop day #1 hip hemiarthroplasty. Discharge planning DC with blood thinner choice. Aspirin or Lovenox Attestations 2 Medical Necessity Statement*: Per primary service Coding Level of Care Code Acute Code for [facility] Fwd Diagnoses S/P hip hemiarthroplasty Z96.649
[2023-09-22] MEDS: enoxaparin 30 mg/0.3 mL Syringe SUBCUT (11:13)
--- NOTE | 2023-09-22 15:10 | P.PN_ITS ---
Subjective 2 Subjective: seen today no aeo resting comfortably in recliner Vitals/I&O/Wt Last Vital Signs Temp 98.0 F 09/22/23 12:00 Pulse 105 H 09/22/23 12:00 Resp 16 09/22/23 12:00 BP 103/65 09/22/23 12:00 Pulse Ox 93 09/22/23 12:00 O2 Del Method Nasal Cannula 09/22/23 12:00 O2 Flow Rate 2 09/21/23 23:55 09/22/23 09/22/23 09/22/23 06:59 14:59 22:59 Intake Total 50 / 1850 630 / 630 Output Total 550 / 1270 Balance -500 / 580 630 / 630 Weight last 48 hrs Weight 63.321 kg Weight 74.021 kg Weight 56.971 kg Physical Exam 2 Narrative: Awake and alert No active exacerbation of myasthenia gravis No active signs of Crohn disease flareup Pleasant cooperative Doing well on 1 L nasal cannula Maldonado catheter in place Hemodynamically stable S1, S2 Urinary Catheter Management: Maldonado: Cath Placed During This Visit: yes, but has since been removed by the nurse Reason for Continuing Indwelling Catheter: Decision to DC Catheter Urinary Catheter Date of Insertion: 09/20/23 Urinary Catheter Time of Insertion: 19:00 Date Urinary Catheter Removed: 09/22/23 Time Urinary Catheter Discontinued: 06:27 Data 09/22/23 04:25 09/22/23 04:25 A&P Assessment and plan (1) Hypertension: Qualifiers: Hypertension type: essential hypertension Qualified Code(s): I10 - Essential (primary) hypertension (2) B12 deficiency: (3) Crohn's disease: Qualifiers: Gastrointestinal tract location: unspecified location Digestive disease complication type: without complication Qualified Code(s): K50.90 - Crohn's disease, unspecified, without complications (4) Fracture of hip, right, closed: Qualifiers: Encounter type: initial encounter Qualified Code(s): S72.001A - Fracture of unspecified part of neck of right femur, initial encounter for closed fracture (5) Myasthenia gravis: (6) COPD (chronic obstructive pulmonary disease): Qualifiers: COPD type: unspecified COPD Qualified Code(s): J44.9 - Chronic obstructive pulmonary disease, unspecified Plan Mechanical fall resulting in right hip fracture is s/p surgery, post op day 1 No active flareup of Crohn disease or myasthenia Carries history of COPD Currently hemodynamic stable Will keep her on opioids along bowel regimen DVT prophylaxis: With SCDs Patient will need PT evaluation after her surgery She lives alone, depending on PT evaluation for disposition will be made regarding her disposition Continue her medications for myasthenia and Crohn's Patient is stating that she has not taken steroids in a long time No active cardiac disease, no history of congestive heart failure No preoperative workup needed before surgery - encourage incentive spirometer Full code Attestations 2 Medical Necessity Statement*: dc in am Diagnoses Essential hypertension I10 Hypertension type: essential hypertension B12 deficiency E53.8 Crohn's disease without complication, unspecified gastrointestinal tract location K50.90 Gastrointestinal tract location: unspecified location Digestive disease complication type: without complication Fracture of hip, right, closed S72.001A Encounter type: initial encounter Myasthenia gravis G70.00 Chronic obstructive pulmonary disease, unspecified COPD type J44.9 COPD type: unspecified COPD
[2023-09-22] MEDS: pantoprazole 40 mg SDV IVP (17:53)
[2023-09-23] VITALS (10 sets, daily range): BP systolic 99–143; BP diastolic 59–72; PULSE 80–111; RESP 15–20; TEMP 36.4–36.9; O2SAT 92–96; BMI 23.5
[2023-09-23 03:58] LABS: Basophils % 0.3 %; Eosinophils # 0.1 10^3/uL (0.0-0.8); Eosinophils % 0.9 %; Lymphocytes # 1.2 10^3/uL (0.8-4.8); Lymphocytes % 10.8 %; Mean Corpuscular HGB Conc 32.1 g/dL (30-55); Mean Corpuscular Hemoglobin 32.9 pg (27-33); Mean Corpuscular Volume 102.7 fl (85-98); Mean Platelet Volume 10.3 fL (7.4-10.4); Monocytes # 0.7 10^3/uL (0.2-0.9); Monocytes % 6.7 %; Neutrophils # 8.68 10^3/uL (1.8-7.7); Neutrophils % 80.8 %; Nucleated Red Blood Cells % 0 %; Platelet Count 178 10^3/cmm (157-399); Red Blood Count 3.31 10^6/uL (3.85-5.65); Red Cell Distribution Width 13.3 % (12.1-15.1); White Blood Count 10.74 10^3/uL (3.29-11.43)
[2023-09-23 04:17] LABS: Anion Gap 8.1 (5-19); Blood Urea Nitrogen 9 mg/dL (8-23); Calcium 6.9 mg/dL (8.5-10.5); Carbon Dioxide 23 mmol/L (22-29); Chloride 109 mmol/L (98-107); Glucose 122 mg/dL (65-115); Osmolality Calculated 282 mOsm/kg (285-295); Potassium 4.1 mmol/L (3.5-5.1); Sodium 136 mmol/L (136-145)
[2023-09-23] MEDS: pyridostigmine 60 mg Tablet PO ×4 (07:58→21:14)
[2023-09-23] MEDS: calcium carbonate 500 mg Chew Tablet PO (07:58)
[2023-09-23] MEDS: folic acid 1 mg Tablet PO (07:59)
[2023-09-23] MEDS: atorvastatin 40 mg Tablet 20 MG PO (07:59)
--- NOTE | 2023-09-23 09:53 | XRR_ITS ---
PROCEDURE INFORMATION: Exam: XR Chest Exam date and time: 09/23/2023 2:21 PM Age: 73 years old Clinical indication: Shortness of breath; Additional info: Post op hip TECHNIQUE: Imaging protocol: Radiologic exam of the chest. Views: 1 view. COMPARISON: CR XR chest 1V portable [id number] 09/20/2023 4:41 PM FINDINGS: Lungs: Bilateral lower lobe indistinct interstitial opacities slightly more pronounced on the left likely due to combination of interstitial CHF pattern and mild left basilar subsegmental atelectasis. Upper lung zones remain meld relatively clear. Pleural spaces: Unremarkable. No pleural effusion. No pneumothorax. Heart/Mediastinum: Cardiac silhouette is mildly enlarged. Bones/joints: Unremarkable for age. XR/XR chest 1V [id number] IMPRESSION: Cardiomegaly with mild interstitial CHF pattern both lung bases.
[2023-09-23] MEDS: enoxaparin 30 mg/0.3 mL Syringe SUBCUT (10:11)
--- NOTE | 2023-09-23 11:14 | PM.PN ---
Subjective Subjective: Patient resting complaint bed. Moving her extremity. Vitals/I&O/Wt Last Vital Signs Temp 98.4 F 09/23/23 09:00 Pulse 80 09/23/23 11:11 Resp 18 09/23/23 11:11 BP 105/67 09/23/23 09:00 Pulse Ox 95 09/23/23 11:11 O2 Del Method Nasal Cannula 09/23/23 11:11 O2 Flow Rate 2 09/23/23 11:11 09/22/23 09/23/23 09/23/23 22:59 06:59 14:59 Intake Total 1281 / 1911 240 / 240 Balance 1281 / 1911 240 / 240 Weight last 48 hrs Weight 141 lb 2 oz Weight 139 lb 9.6 oz Physical Exam Narrative: Dressing clean dry and intact. Urinary Catheter Management: Maldonado: Cath Placed During This Visit: yes, but has since been removed by the nurse Reason for Continuing Indwelling Catheter: Decision to DC Catheter Urinary Catheter Date of Insertion: 09/20/23 Urinary Catheter Time of Insertion: 19:00 Date Urinary Catheter Removed: 09/22/23 Time Urinary Catheter Discontinued: 06:27 Data 09/23/23 03:15 09/23/23 03:15 A&P Assessment and plan (1) Fracture of hip, right, closed: Postop day #2 right hip hemiarthroplasty Up with physical therapy DVT prophylaxis with Lovenox Qualifiers: Encounter type: initial encounter Qualified Code(s): S72.001A - Fracture of unspecified part of neck of right femur, initial encounter for closed fracture Attestations Medical Necessity Statement*: Per primary service Coding Level of Care Code Acute Code for [facility] Fwd Diagnoses Fracture of hip, right, closed S72.001A Encounter type: initial encounter
--- NOTE | 2023-09-23 13:58 | P.PN_ITS ---
Subjective 2 Subjective: Seen this morning. No acute event overnight. Still requiring 2 L nasal cannula saturating 93%. Says she is interested in SNF placement. Vitals/I&O/Wt Last Vital Signs Temp 98.0 F 09/23/23 12:00 Pulse 82 09/23/23 12:00 Resp 18 09/23/23 12:00 BP 116/72 09/23/23 12:00 Pulse Ox 93 09/23/23 12:00 O2 Del Method Nasal Cannula 09/23/23 12:00 O2 Flow Rate 2 09/23/23 11:11 09/22/23 09/23/23 09/23/23 22:59 06:59 14:59 Intake Total 1281 / 1911 720 / 720 Balance 1281 / 1911 720 / 720 Weight last 48 hrs Weight 64.013 kg Weight 63.321 kg Physical Exam 2 Narrative: Awake and alert No active exacerbation of myasthenia gravis No active signs of Crohn disease flareup Pleasant cooperative Clear to auscultation bilaterally with mild diminished at bases. No active crackles wheezing or rhonchi. Doing well on 2 L nasal cannula Maldonado catheter in place Hemodynamically stable S1, S2 Urinary Catheter Management: Maldonado: Cath Placed During This Visit: yes, but has since been removed by the nurse Reason for Continuing Indwelling Catheter: Decision to DC Catheter Urinary Catheter Date of Insertion: 09/20/23 Urinary Catheter Time of Insertion: 19:00 Date Urinary Catheter Removed: 09/22/23 Time Urinary Catheter Discontinued: 06:27 Data 09/23/23 03:15 09/23/23 03:15 A&P Assessment and plan (1) Hypertension: Qualifiers: Hypertension type: essential hypertension Qualified Code(s): I10 - Essential (primary) hypertension (2) B12 deficiency: (3) Crohn's disease: Qualifiers: Gastrointestinal tract location: unspecified location Digestive disease complication type: without complication Qualified Code(s): K50.90 - Crohn's disease, unspecified, without complications (4) Fracture of hip, right, closed: Qualifiers: Encounter type: initial encounter Qualified Code(s): S72.001A - Fracture of unspecified part of neck of right femur, initial encounter for closed fracture (5) Myasthenia gravis: (6) COPD (chronic obstructive pulmonary disease): Qualifiers: COPD type: unspecified COPD Qualified Code(s): J44.9 - Chronic obstructive pulmonary disease, unspecified Plan Mechanical fall resulting in right hip fracture is s/p surgery, post op day 2 No active flareup of Crohn disease or myasthenia Carries history of COPD Currently hemodynamic stable Will keep her on opioids along bowel regimen DVT prophylaxis: With SCDs Patient will need PT evaluation after her surgery. Interested in SNF placement. She lives alone, depending on PT evaluation for disposition will be made regarding her disposition Continue her medications for myasthenia and Crohn's Patient is stating that she has not taken steroids in a long time No active cardiac disease, no history of congestive heart failure No preoperative workup needed before surgery - encourage incentive spirometer Chest x-ray this morning shows cardiomegaly and mild edema. Will order Lasix 20 IV x 1. Check echo Full code Attestations 2 Medical Necessity Statement*: Continue postop care Diagnoses Essential hypertension I10 Hypertension type: essential hypertension B12 deficiency E53.8 Crohn's disease without complication, unspecified gastrointestinal tract location K50.90 Gastrointestinal tract location: unspecified location Digestive disease complication type: without complication Fracture of hip, right, closed S72.001A Encounter type: initial encounter Myasthenia gravis G70.00 Chronic obstructive pulmonary disease, unspecified COPD type J44.9 COPD type: unspecified COPD
--- NOTE | 2023-09-23 13:59 | USCV_ITS ---
Darling Gonzalez Age: 73 Gender: F : 1950 Exam Date: 09/23/2023 15:16 Ordering Phys: Minoo Daniels MD Technologist: Danae Sutherland [place] [facility] [place]: CHF BP: / HR: 119 Rhythm: Sinus Technical Quality: Adequate MEASUREMENTS (Male / Female) Normal Values 2D ECHO LV Diastolic Diameter PLAX 3.2 cm 4.2 - 5.9 / 3.9 - 5.3 cm LV Systolic Diameter PLAX 2.1 cm LV Chamber Size 1.7 cm IVS Diastolic Thickness 0.9 cm 0.6 - 1.0 / 0.6 - 0.9 cm IVS Systolic Thickness 0.9 cm LVPW Diastolic Thickness 1.4 cm 0.6 - 1.0 / 0.6 - 0.9 cm LVPW Systolic Thickness 1.2 cm RV Chamber Size 3.0 cm LVOT Diameter 2.0 cm LV Ejection Fraction 2D Teich 64.2 % LV Ejection Fraction MOD 2C 63.4 % LV Ejection Fraction 2C AL 66.9 % LA Diameter 2.8 cm LA Width 2.5 cm LA Height 4.2 cm RA Width 3.5 cm RA Height 4.8 cm Aorta at Sinotubular Diameter 2.8 cm IVC Diameter 1.1 cm M-MODE Aortic Annulus Diameter 3.0 cm LA Ao Ratio MM 1.1 MV E Point Septal Separation 0.4 cm DOPPLER AV Peak Velocity 134.0 cm/s LVOT Peak Velocity 102.0 cm/s AV Area Cont Eq vti 3.1 cm squared AV Area Cont Eq pk 2.4 cm squared MV Area PHT 4.9 cm squared Mitral E to A Ratio 1.1 MV E' Velocity 77.0 cm/s Mitral E to MV E' Ratio 8.5 Mitral E to LV E' Lateral Ratio 8.5 Mitral E to LV E' Septal Ratio 8.5 TR Peak Velocity 168.2 cm/s TR Peak Gradient 11.3 mmHg TR Mean Velocity 130.0 cm/s TR Mean Gradient 7.4 mmHg TR Velocity Time Integral 37.5 cm TV Peak E Velocity 68.0 cm/s Right Atrial Pressure 3.0 mmHg Pulmonary Artery Systolic Pressu 14.3 mmHg RV Acceleration Time 0.1 s RV Ejection Time 0.3 s RV AcT/ET 0.4 FINDINGS Left Ventricle Normal left ventricular size and systolic function, EF 67 %. No regional wall motion abnormalities. Grade I/IV diastolic dysfunction (abnormal relaxation filling pattern), normal to mildly elevated filling pressures. Right Ventricle The right ventricle is normal in size and function. Right Atrium The right atrium is normal in size. Left Atrium The left atrium is normal in size. Mitral Valve No gross abnormalities noted Aortic Valve No gross abnormalities noted Tricuspid Valve Trace tricuspid valve regurgitation. Pulmonic Valve Pulmonic valve not well visualized. Pericardium Normal pericardium without effusion. Aorta Normal ascending aorta dimension. IVC The inferior vena cava appears normal. CONCLUSIONS Normal left ventricular size and systolic function, EF 67 %. No regional wall motion abnormalities. Grade I/IV diastolic dysfunction (abnormal relaxation filling pattern), normal to mildly elevated filling pressures. Trace tricuspid valve regurgitation. Normal cardiac chamber sizes. There is no pericardial effusion. There are no intracardiac masses. No similar previous studies are available for comparison Dr Diamond Reeves MD FAC (Electronically Signed) Final Date: 24 September 2023 17:53 S
[2023-09-23] MEDS: FUROsemide 10 mg/mL SDV 2mL 20 MG IVP ×2 (14:36→16:40)
[2023-09-23 15:54] LABS: NT Pro B Type Natriuretic Pept 7581 pg/mL (0-125)
[2023-09-23] MEDS: pantoprazole 40 mg SDV IVP (16:40)
[2023-09-23] MEDS: HYDROcodone-acetaminophen 5-325 mg Tablet PO (19:44)
[2023-09-24] VITALS (7 sets, daily range): BP systolic 106–113; BP diastolic 64–68; PULSE 84–112; RESP 16–20; TEMP 36.4–36.9; O2SAT 92–98
[2023-09-24 04:53] LABS: Basophils % 0.2 %; Eosinophils # 0.1 10^3/uL (0.0-0.8); Eosinophils % 0.5 %; Hematocrit 33.7 % (36-47); Lymphocytes # 1.1 10^3/uL (0.8-4.8); Lymphocytes % 7.5 %; Mean Corpuscular HGB Conc 33.2 g/dL (30-55); Mean Corpuscular Hemoglobin 32.9 pg (27-33); Mean Corpuscular Volume 99.1 fl (85-98); Mean Platelet Volume 10.1 fL (7.4-10.4); Monocytes % 6.9 %; Neutrophils % 84.3 %; Nucleated Red Blood Cells % 0 %; Platelet Count 201 10^3/cmm (157-399); White Blood Count 14.73 10^3/uL (3.29-11.43)
[2023-09-24 05:13] LABS: Anion Gap 10.3 (5-19); Blood Urea Nitrogen 8 mg/dL (8-23); Calcium 7.3 mg/dL (8.5-10.5); Carbon Dioxide 28 mmol/L (22-29); Chloride 102 mmol/L (98-107); Glucose 121 mg/dL (65-115); Osmolality Calculated 284 mOsm/kg (285-295); Potassium 3.3 mmol/L (3.5-5.1); Sodium 137 mmol/L (136-145)
--- NOTE | 2023-09-24 07:02 | PM.PN ---
Subjective Subjective: Patient resting comfortably in bed. Vitals/I&O/Wt Last Vital Signs Temp 97.5 F L 09/24/23 04:20 Pulse 84 09/24/23 04:20 Resp 16 09/24/23 04:20 BP 106/68 09/24/23 04:20 Pulse Ox 95 09/24/23 04:20 O2 Del Method Nasal Cannula 09/24/23 04:20 O2 Flow Rate 2 09/24/23 04:20 09/23/23 09/24/23 09/24/23 22:59 06:59 14:59 Intake Total [id number] Balance 134 / 2059 Weight last 48 hrs Weight 135 lb 2 oz Weight 141 lb 2 oz Physical Exam Narrative: Resting comfortably in bed Urinary Catheter Management: Maldonado: Cath Placed During This Visit: yes, but has since been removed by the nurse Reason for Continuing Indwelling Catheter: Decision to DC Catheter Urinary Catheter Date of Insertion: 09/20/23 Urinary Catheter Time of Insertion: 19:00 Date Urinary Catheter Removed: 09/22/23 Time Urinary Catheter Discontinued: 06:27 Data 09/24/23 04:40 09/24/23 04:40 A&P Assessment and plan (1) Fracture of hip, right, closed: Postop day #3 right hip hemiarthroplasty Up with physical therapy Discharge planning Qualifiers: Encounter type: initial encounter Qualified Code(s): S72.001A - Fracture of unspecified part of neck of right femur, initial encounter for closed fracture Attestations Medical Necessity Statement*: Per primary service Coding Level of Care Code Acute Code for [facility] Fwd Diagnoses Fracture of hip, right, closed S72.001A Encounter type: initial encounter
--- NOTE | 2023-09-24 09:14 | PC.CHAP ---
Pastoral Care Encounter/Spiritual Assessment Type of Contact [] Declined physician coding specialist visit [] Patient/Family/Request visit [] Outpatient visit [] Follow-up visit [] Physician referral [] Code/Alert [x] Routine visit [] Staff referral [] Actively dying [] Patient sleeping [] Family support [] [] Out of room [] Palliative care [] [] Receiving care in room [] Pre-surgical visit [] Trauma [] Long length of stay [] ICU visit [] Other: Relational/Emotional Strength [x] Patient feels connected with others/family/visitors/staff [] Distress [] Loneliness/isolation [] Abandonment Spirituality of Patient [x] Person of Orly [] Attends Lutheran of their [place]ly [x] Believes in Prayer [] Reads Bible or Rastafari materials [] There are Spiritual issues to be addressed 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 Interventions [x] Prayer [x] Active listening [] Non-anxious presence [x] Spiritual/emotional support [] Crisis/trauma care [] Spiritual counseling [] Bereavement support [] Provided bereavement packet [] Provided Bible/devotional materials [] Provided toy/stuffed animal, coloring book to patient or family member [] Provided Communion [] Anointing/[place] [] Salvation [x] Completed spiritual assessment [] Other: Impact on Illness or Injury [] Angry [] Fearful [] Anxious [] Often cries [] Exhaustion [] Unable to work [] Unable to attend tenriism [] Unable to walk/stand [] Unable to read [] Unable to drive [] Unable to eat/drink [] Unable to sleep [] Unable to be with family [] Patient intubated [] Other: Summary Time spent with patient 5 min
[2023-09-24] MEDS: calcium carbonate 500 mg Chew Tablet PO (10:01)
[2023-09-24] MEDS: pyridostigmine 60 mg Tablet PO ×4 (10:01→20:16)
[2023-09-24] MEDS: atorvastatin 40 mg Tablet 20 MG PO (10:01)
[2023-09-24] MEDS: folic acid 1 mg Tablet PO (10:01)
[2023-09-24] MEDS: enoxaparin 30 mg/0.3 mL Syringe SUBCUT (11:50)
--- NOTE | 2023-09-24 13:05 | PM.PN ---
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 Vitals/I&O/Wt Last Vital Signs Temp 98.4 F 09/24/23 11:41 Pulse 102 H 09/24/23 11:41 Resp 19 H 09/24/23 11:41 BP 110/65 09/24/23 11:41 Pulse Ox 98 09/24/23 11:41 O2 Del Method Nasal Cannula 09/24/23 11:41 O2 Flow Rate 2 09/24/23 07:20 09/23/23 09/24/23 09/24/23 22:59 06:59 14:59 Intake Total 1340 / 0 980 / 980 Balance 1340 / 0 980 / 980 Weight last 48 hrs Weight 61.292 kg Weight 64.013 kg Physical Exam Narrative: Awake and alert Pleasant cooperative GCS 15 Currently 1.5 L nasal cannula Abdomen soft S1, S2 Maldonado catheter has been removed Doing well Urinary Catheter Management: Maldonado: Cath Placed During This Visit: yes, but has since been removed by the nurse Reason for Continuing Indwelling Catheter: Decision to DC Catheter Urinary Catheter Date of Insertion: 09/20/23 Urinary Catheter Time of Insertion: 19:00 Date Urinary Catheter Removed: 09/22/23 Time Urinary Catheter Discontinued: 06:27 Data 09/24/23 04:40 09/24/23 04:40 A&P Assessment and plan (1) B12 deficiency: (2) Hypertension: Qualifiers: Hypertension type: essential hypertension Qualified Code(s): I10 - Essential (primary) hypertension (3) Crohn's disease: Qualifiers: Gastrointestinal tract location: unspecified location Digestive disease complication type: without complication Qualified Code(s): K50.90 - Crohn's disease, unspecified, without complications (4) S/P hip hemiarthroplasty: Plan Awaiting placement Medically cleared to be discharged Continue anticoagulating agent for DVT prophylaxis Patient lives alone, will need short-term rehab Full code Regular diet No active flare of Crohn disease or myasthenia Attestations Medical Necessity Statement*: Awaiting placement Diagnoses B12 deficiency E53.8 Essential hypertension I10 Hypertension type: essential hypertension Crohn's disease without complication, unspecified gastrointestinal tract location K50.90 Gastrointestinal tract location: unspecified location Digestive disease complication type: without complication S/P hip hemiarthroplasty Z96.649
--- NOTE | 2023-09-24 13:59 | PC.SOCIAL ---
IMM Updated Updated pt on IMM. No questions voiced. Provided pt a copy. Initialed, dated, & timed a copy & placed in chart.
[2023-09-24] MEDS: pantoprazole 40 mg SDV IVP (17:10)
[2023-09-24] MEDS: HYDROcodone-acetaminophen 5-325 mg Tablet PO (20:16)
[2023-09-25] VITALS (9 sets, daily range): BP systolic 106–126; BP diastolic 61–77; PULSE 80–106; RESP 15–20; TEMP 36.4–36.8; O2SAT 90–97
[2023-09-25] MEDS: folic acid 1 mg Tablet PO (10:12)
[2023-09-25] MEDS: pyridostigmine 60 mg Tablet PO ×4 (10:12→21:11)
[2023-09-25] MEDS: calcium carbonate 500 mg Chew Tablet PO (10:12)
[2023-09-25] MEDS: atorvastatin 40 mg Tablet 20 MG PO (10:12)
[2023-09-25] MEDS: enoxaparin 30 mg/0.3 mL Syringe SUBCUT (10:13)
--- NOTE | 2023-09-25 13:19 | P.PN_ITS ---
Subjective 2 Subjective: No overnight events Patient had a bowel movement with lactulose Awaiting placement Vitals/I&O/Wt Last Vital Signs Temp 98.2 F 09/25/23 07:08 Pulse 103 H 09/25/23 11:31 Resp 18 09/25/23 11:31 BP 106/70 09/25/23 11:31 Pulse Ox 92 09/25/23 11:31 O2 Del Method Room Air 09/25/23 11:31 O2 Flow Rate 1 09/25/23 08:00 09/24/23 09/25/23 09/25/23 22:59 06:59 14:59 Intake Total 240 / 1220 400 / 1620 240 / 240 Balance 240 / 1220 400 / 1620 240 / 240 Weight last 48 hrs Weight 60.951 kg Weight 61.292 kg Physical Exam 2 Narrative: Pleasant cooperative Laying supine GCS 15 Work with PT Pleasant cooperative Currently on room air S1, S2 GCS 15 Urinary Catheter Management: Maldonado: Cath Placed During This Visit: yes, but has since been removed by the nurse Reason for Continuing Indwelling Catheter: Decision to DC Catheter Urinary Catheter Date of Insertion: 09/20/23 Urinary Catheter Time of Insertion: 19:00 Date Urinary Catheter Removed: 09/22/23 Time Urinary Catheter Discontinued: 06:27 Data 09/24/23 04:40 09/24/23 04:40 A&P Assessment and plan (1) Hypertension: Qualifiers: Hypertension type: essential hypertension Qualified Code(s): I10 - Essential (primary) hypertension (2) B12 deficiency: (3) Vitamin D deficiency: (4) Crohn's disease: Qualifiers: Gastrointestinal tract location: unspecified location Digestive disease complication type: without complication Qualified Code(s): K50.90 - Crohn's disease, unspecified, without complications (5) Fracture of hip, right, closed: Qualifiers: Encounter type: initial encounter Qualified Code(s): S72.001A - Fracture of unspecified part of neck of right femur, initial encounter for closed fracture (6) S/P hip hemiarthroplasty: (7) Myasthenia gravis: (8) COPD (chronic obstructive pulmonary disease): Qualifiers: COPD type: unspecified COPD Qualified Code(s): J44.9 - Chronic obstructive pulmonary disease, unspecified Plan Awaiting placement Constipation: Relieved Patient lives alone Working with PT Patient is scared to go home because of her multiple comorbid conditions, she lives alone Continue antihypertensive regimen VT prophylaxis on board Continue mesalamine No active flare of Crohn disease or myasthenia Attestations 2 Medical Necessity Statement*: Awaiting placement Diagnoses Essential hypertension I10 Hypertension type: essential hypertension B12 deficiency E53.8 Vitamin D deficiency E55.9 Crohn's disease without complication, unspecified gastrointestinal tract location K50.90 Gastrointestinal tract location: unspecified location Digestive disease complication type: without complication Fracture of hip, right, closed S72.001A Encounter type: initial encounter S/P hip hemiarthroplasty Z96.649 Myasthenia gravis G70.00 Chronic obstructive pulmonary disease, unspecified COPD type J44.9 COPD type: unspecified COPD
--- NOTE | 2023-09-25 16:43 | PC.SOCIAL ---
IMM Updated Updated pt on IMM. No questions voiced. Provided pt a copy. Initialed, dated, & timed copy in chart.
[2023-09-25] MEDS: pantoprazole 40 mg SDV IVP (18:18)
--- NOTE | 2023-09-26 02:00 | PC.NURSE ---
Addendum entered by Aurora Johnston RN 09/26/23 02:48: No new orders received. Original Note: Patient states she has a history of Chron's disease and takes Mesalazine at home, but she has not been getting it here because we do not carry it. She is asking for Imodium for her diarrhea. She says she takes it at home as needed. Dr. Dumont notified.
[2023-09-26 04:00] VITALS: BP 121/67; PULSE 85; RESP 16; TEMP 36.5; O2SAT 90
[2023-09-26 08:00] VITALS: BP 149/76; PULSE 94; PULSE 96; RESP 15; RESP 20; TEMP 36.4; O2SAT 90; O2SAT 94
[2023-09-26] MEDS: folic acid 1 mg Tablet PO (08:22)
[2023-09-26] MEDS: atorvastatin 40 mg Tablet 20 MG PO (08:22)
[2023-09-26] MEDS: pyridostigmine 60 mg Tablet PO ×2 (08:23→13:57)
[2023-09-26] MEDS: calcium carbonate 500 mg Chew Tablet PO (08:23)
[2023-09-26] MEDS: enoxaparin 30 mg/0.3 mL Syringe SUBCUT (09:54)
[2023-09-26 10:21] LABS: SARS Covid-2 Antigen negative (Negative)
[2023-09-26 11:34] VITALS: BP 120/69; PULSE 83; RESP 16; TEMP 36.7; O2SAT 90
--- NOTE | 2023-09-26 11:52 | PM.DCS ---
Discharge Providers Date of Admission: 09/20/23 16:40 Date of Discharge: September 26, 2023 Attending Provider at Admission: iMnoo Daniels MD Attending Provider at Discharge: Felipe Sainz Primary Care Provider: Ariadna Cruz MD Diagnoses at Discharge Discharge Diagnosis (1) Hypertension: Status: Acute Qualifiers: Hypertension type: essential hypertension Qualified Code(s): I10 - Essential (primary) hypertension (2) B12 deficiency: Status: Acute (3) Vitamin D deficiency: Status: Acute (4) Crohn's disease: Status: Acute Qualifiers: Gastrointestinal tract location: unspecified location Digestive disease complication type: without complication Qualified Code(s): K50.90 - Crohn's disease, unspecified, without complications (5) Fracture of hip, right, closed: Status: Acute Qualifiers: Encounter type: initial encounter Qualified Code(s): S72.001A - Fracture of unspecified part of neck of right femur, initial encounter for closed fracture (6) S/P hip hemiarthroplasty: Status: Acute (7) Myasthenia gravis: Status: Acute (8) COPD (chronic obstructive pulmonary disease): Status: Acute Qualifiers: COPD type: unspecified COPD Qualified Code(s): J44.9 - Chronic obstructive pulmonary disease, unspecified Reason for Visit Reason for Visit: fall Hospital Course Hospital Course Pleasant 73-year-old lady with history of Crohn's disease, myasthenia gravis without exacerbation presented after a misstep and fall on concrete in the parking lot with resultant right hip fracture. She underwent right hip hemiarthroplasty on 09/21. Physically mild transient anemia but hemoglobin showing improvement up to 11.9. Please follow blood counts for anemia at next appointment. Continues on Lovenox for DVT prophylaxis. Otherwise working with physical therapy, discharging to senior care facility to continue rehabilitation prior to return home where she lives alone, with follow-up with orthopedics. During hospitalization not received Lasix due to cardiomegaly, congestive changes, fluid overload, diuresed well, weaned down to room air on oxygen. Echocardiogram was obtained, reported as below. Please follow-up and reassess volume status Physical Exam Const: COMMON NORMALS: patient oriented x3 and alert GENERAL APPEARANCE: cooperative ORIENTATION/CONSCIOUSNESS: Yes awake HENMT: COMMON NORMALS: oropharynx normal Neck/C-Spine: COMMON NORMALS: no JVD Resp: COMMON NORMALS: normal respiratory effort and clear to auscultation bilaterally AUSCULTATION: clear to auscultation bilaterally Cardio: COMMON NORMALS: no JVD, regular rhythm, S1 normal heart sound present, S2 normal heart sound present and No murmurs present (Cardio) RHYTHM: regular rhythm HEART SOUNDS: S1 normal heart sound present and S2 normal heart sound present GI: COMMON NORMALS: Normal to inspection, nondistended, normoactive bowel sounds present, Soft to palpation and non-tender PALPATION: Yes Soft to palpation Extremity: COMMON NORMALS: no joint enlargement and no pedal edema OTHER: R hip dressing, no surrounding erythema, bruising, bleeding, no lower extremity edema. Leg is warm and perfused. Neuro: COMMON NORMALS: patient oriented x3 and moves all extremities SENSORIUM/ORIENTATION: Yes alert Skin: COMMON NORMALS: no rashes or lesions noted GENERAL SKIN EXAM: no rashes or lesions noted Urinary Catheter Management: Maldonado: Cath Placed During This Visit: yes, but has since been removed by the nurse Reason for Continuing Indwelling Catheter: Decision to DC Catheter Urinary Catheter Date of Insertion: 09/20/23 Urinary Catheter Time of Insertion: 19:00 Date Urinary Catheter Removed: 09/22/23 Time Urinary Catheter Discontinued: 06:27 Discharge Data Studies Completed and Pending Completed Studies During Hospitalization Category Date Time Status XR chest 1V [id number] Urgent Exams 09/23/23 09:53 Completed XR chest 1V portable [id number] Stat Exams 09/20/23 16:24 Completed XR hip RT 1V wo/w pel [id number] Routine Exams 09/21/23 09:50 Completed XR hip RT 2-3V wo/w pel* [id number] Stat Exams 09/20/23 15:30 Completed CV. echo complete* [id number] Routine Ultrasound 09/23/23 13:59 Completed Radiology Impressions Hip/Pelvis X-Ray 09/20/23 15:30 IMPRESSION: Subcapital femoral neck fracture of the right hip as noted above. Hip X-Ray 09/21/23 09:50 IMPRESSION: No unexpected postoperative findings. Chest X-Ray 09/23/23 09:53 IMPRESSION: Cardiomegaly with mild interstitial CHF pattern both lung bases. Laboratory Results WBC 14.73 10^3/uL (3.29-11.43) H 09/24/23 04:40 RBC 3.40 10^6/uL (3.85-5.65) L 09/24/23 04:40 Hgb 11.20 g/dL (11.27-16.99) L 09/24/23 04:40 Hct 33.7 % (36-47) L 09/24/23 04:40 MCV 99.1 fl (85-98) H 09/24/23 04:40 MCH 32.9 pg (27-33) 09/24/23 04:40 MCHC 33.2 g/dL (30-55) 09/24/23 04:40 RDW 13.0 % (12.1-15.1) 09/24/23 04:40 Plt Count 201 10^3/cmm (157-399) 09/24/23 04:40 MPV 10.1 fL (7.4-10.4) 09/24/23 04:40 Neut % (Auto) 84.3 % 09/24/23 04:40 Lymph % (Auto) 7.5 % 09/24/23 04:40 [place] % (Auto) 6.9 % 09/24/23 04:40 Eos % (Auto) 0.5 % 09/24/23 04:40 Baso % (Auto) 0.2 % 09/24/23 04:40 Neut # (Auto) 12.40 10^3/uL (1.8-7.7) H 09/24/23 04:40 Lymph # (Auto) 1.1 10^3/uL (0.8-4.8) 09/24/23 04:40 [place] # (Auto) 1.0 10^3/uL (0.2-0.9) H 09/24/23 04:40 Eos # (Auto) 0.1 10^3/uL (0.0-0.8) 09/24/23 04:40 Baso # (Auto) 0.0 10^3/uL (0.0-0.1) 09/24/23 04:40 Nucleated RBC % (auto) 0 % 09/24/23 04:40 Nucleated RBCs # 0.0 /100WBC 09/24/23 04:40 Sodium 137 mmol/L (136-145) 09/24/23 04:40 Potassium 3.3 mmol/L (3.5-5.1) L 09/24/23 04:40 Chloride 102 mmol/L (98-107) 09/24/23 04:40 Carbon Dioxide 28 mmol/L (22-29) 09/24/23 04:40 Anion Gap 10.3 (5-19) 09/24/23 04:40 BUN 8 mg/dL (8-23) 09/24/23 04:40 Creatinine 0.6 mg/dL (0.5-0.9) 09/24/23 04:40 GFR Calculation Not Reportable 09/24/23 04:40 Glucose 121 mg/dL (65-115) H 09/24/23 04:40 Calculated Osmolality 284 mOsm/kg (285-295) L 09/24/23 04:40 Calcium 7.3 mg/dL (8.5-10.5) L 09/24/23 04:40 Magnesium 1.4 mg/dL (1.7-2.3) L 09/22/23 04:25 Total Bilirubin 1.2 mg/dL (0.15-1.2) 09/21/23 05:30 AST 30 U/L (0-32) 09/21/23 05:30 ALT 10 U/L (0-33) 09/21/23 05:30 Alkaline Phosphatase 54 U/L (35-105) 09/21/23 05:30 NT-Pro-B Natriuret Pep 7581 pg/mL (0-125) H 09/23/23 15:09 Total Protein 6.1 g/dL (6.6-8.7) L 09/21/23 05:30 Albumin 3.3 g/dL (3.5-5.2) L 09/21/23 05:30 Globulin 2.8 g/dL (1.3-4.6) 09/21/23 05:30 TSH 4.81 uIU/mL (0.27-4.20) H 09/20/23 17:29 Urine Color Yellow (Yellow) 09/20/23 19:02 Urine Appearance Clear (CLEAR) 09/20/23 19:02 Urine pH 5 (5-7) 09/20/23 19:02 Ur Specific [place] 1.015 (1.005-1.030) 09/20/23 19:02 Urine Protein Neg (Negative) 09/20/23 19:02 Urine Glucose (UA) Norm (Normal) 09/20/23 19:02 Urine Ketones Negative (Negative) 09/20/23 19:02 Urine Blood Trace (Negative) H 09/20/23 19:02 Urine Nitrate Negative (Negative) 09/20/23 19:02 Urine Bilirubin Neg (Negative) 09/20/23 19:02 Urine Urobilinogen Norm mg/dL (Negative) 09/20/23 19:02 Ur Leukocyte Esterase Negative (Negative) 09/20/23 19:02 Urine RBC 0-4 /hpf (0-2) H 09/20/23 19:02 Urine WBC 0-4 /hpf (0-5) H 09/20/23 19:02 Ur Squamous Epith Cells 0-4 /hpf (0-5) H 09/20/23 19:02 Amorphous Sediment Not Reportable 09/20/23 19:02 Urine Bacteria Trace /hpf (NONE) 09/20/23 19:02 SARS-CoV-2 Ag (Rapid) negative (Negative) 09/26/23 09:56 Imaging Echo: Radiologist's impression: Patient: Darling Gonzalez Unit #: [id number] : 1950 Age/Sex: 73 / F ADM Date: 09/20/23 Loc: [facility] Room/Bed: [facility] Attending Dr: Jaky Farias MD Ordering Provider/Ordering MD: Minoo Daniels MD Date of Service: 09/23/23 Procedure(s): CV. echo complete* [id number] Accession Number(s): [id number] Report Number: [id number] Darling Gonzalez Age: 73 Gender: F : 1950 Exam Date: 09/23/2023 15:16 Ordering Phys: Minoo Daniels MD Technologist: Danae Sutherland Exam Location: [facility] [place] Indication: CHF BP: / HR: 119 Rhythm: Sinus Technical Quality: Adequate MEASUREMENTS (Male / Female) Normal Values 2D ECHO LV Diastolic Diameter PLAX 3.2 cm 4.2 - 5.9 / 3.9 - 5.3 cm LV Systolic Diameter PLAX 2.1 cm LV Chamber Size 1.7 cm IVS Diastolic Thickness 0.9 cm 0.6 - 1.0 / 0.6 - 0.9 cm IVS Systolic Thickness 0.9 cm LVPW Diastolic Thickness 1.4 cm 0.6 - 1.0 / 0.6 - 0.9 cm LVPW Systolic Thickness 1.2 cm RV Chamber Size 3.0 cm LVOT Diameter 2.0 cm LV Ejection Fraction 2D Teich 64.2 % LV Ejection Fraction MOD 2C 63.4 % LV Ejection Fraction 2C AL 66.9 % LA Diameter 2.8 cm LA Width 2.5 cm LA Height 4.2 cm RA Width 3.5 cm RA Height 4.8 cm Aorta at Sinotubular Diameter 2.8 cm IVC Diameter 1.1 cm M-MODE Aortic Annulus Diameter 3.0 cm LA Ao Ratio MM 1.1 MV E Point Septal Separation 0.4 cm DOPPLER AV Peak Velocity 134.0 cm/s LVOT Peak Velocity 102.0 cm/s AV Area Cont Eq vti 3.1 cm squared AV Area Cont Eq pk 2.4 cm squared MV Area PHT 4.9 cm squared Mitral E to A Ratio 1.1 MV E' Velocity 77.0 cm/s Mitral E to MV E' Ratio 8.5 Mitral E to LV E' Lateral Ratio 8.5 Mitral E to LV E' Septal Ratio 8.5 TR Peak Velocity 168.2 cm/s TR Peak Gradient 11.3 mmHg TR Mean Velocity 130.0 cm/s TR Mean Gradient 7.4 mmHg TR Velocity Time Integral 37.5 cm TV Peak E Velocity 68.0 cm/s Right Atrial Pressure 3.0 mmHg Pulmonary Artery Systolic Pressu 14.3 mmHg RV Acceleration Time 0.1 s RV Ejection Time 0.3 s RV AcT/ET 0.4 FINDINGS Left Ventricle Normal left ventricular size and systolic function, EF 67 %. No regional wall motion abnormalities. Grade I/IV diastolic dysfunction (abnormal relaxation filling pattern), normal to mildly elevated filling pressures. Right Ventricle The right ventricle is normal in size and function. Right Atrium The right atrium is normal in size. Left Atrium The left atrium is normal in size. Mitral Valve No gross abnormalities noted Aortic Valve No gross abnormalities noted Tricuspid Valve Trace tricuspid valve regurgitation. Pulmonic Valve Pulmonic valve not well visualized. Pericardium Normal pericardium without effusion. Aorta Normal ascending aorta dimension. IVC The inferior vena cava appears normal. CONCLUSIONS Normal left ventricular size and systolic function, EF 67 %. No regional wall motion abnormalities. Grade I/IV diastolic dysfunction (abnormal relaxation filling pattern), normal to mildly elevated filling pressures. Trace tricuspid valve regurgitation. Normal cardiac chamber sizes. There is no pericardial effusion. There are no intracardiac masses. No similar previous studies are available for comparison Vitals Last Vital Signs Temp 98.0 F 09/26/23 11:34 Pulse 83 09/26/23 11:34 Resp 16 09/26/23 11:34 BP 120/69 09/26/23 11:34 Pulse Ox 90 09/26/23 11:34 O2 Del Method Room Air 09/26/23 11:34 O2 Flow Rate 2 09/26/23 08:00 Discharge Plan Discharge Patient Disposition: Xfer [facility] Condition: Stable Prescriptions: New enoxaparin 30 mg/0.3 mL Syringe 30 mg SUBCUT Q24H 20 Days Qty: 6 0RF acetaminophen 650 mg tablet extended release 650 mg PO Q8H PRN (Reason: pain) Qty: 30 0RF Continued albuterol sulfate [ProAir HFA] 90 mcg/actuation HFA aerosol inhaler 2 puff INHALATION Q6H PRN (Reason: shortness of breath or wheezing) Qty: 8.5 1RF cholecalciferol (vitamin D3) 1,250 mcg (50,000 unit) capsule 1,250 mcg PO Q30D Qty: 30 3RF lisinopril-hydrochlorothiazide 20-12.5 mg tablet 1 tab PO BID Qty: 180 3RF Dulera 200-5 mcg/actuation HFA aerosol inhaler 2 puff inhalation BID Qty: 13 4RF pyridostigmine bromide 60 mg tablet 60 mg PO QID 90 Days Qty: 360 3RF Spiriva with HandiHaler 18 mcg capsule, w/inhalation device 1 cap inhalation DAILY Qty: 60 4RF Rx Instructions: puncture 1 cap using device; one dose = 2 inhalations krill oil 500 mg capsule 500 mg PO DAILY Qty: 90 4RF atorvastatin 20 mg tablet 20 mg PO DAILY calcium carbonate 600 mg calcium (1,500 mg) tablet 600 mg PO DAILY folic acid 1 mg tablet 1 mg PO DAILY furosemide 20 mg tablet 20 mg PO DAILY mesalamine 1.2 gram tablet,delayed release (DR/EC) 2.4 g PO BID Rx Instructions: TAKE TWO TABLETS BY MOUTH TWICE DAILY potassium chloride 20 mEq tablet extended release 20 meq PO DAILY Imodium A-D 2 mg Tablet 2 mg PO Q6H PRN (Reason: Diarrhea) Discharge Orders: Discharge Order (Routine); Ordered 09/26/23 Ordered By: Felipe Sainz Referrals: Spencer Garcia DO [Physician] - 10/02/23 9:15 am Ariadna Cruz MD [Primary Care Provider] - 4-7 days Discharge Diet: Cardiac Discharge Activity: As per PT/OT instructions Patient Instructions: Enoxaparin (By injection), Fall Prevention (GEN), Hip Fracture (GEN) Activity Restrictions/Additional Instructions: Weight-bear as tolerated Follow-up Ortho clinic in 2 weeks for staple removal Take blood thinner Lovenox or aspirin Change dressing as needed Keep dressing clean dry and intact May shower just keep dressing dry Follow-up hemoglobin at the next appointment to reassess anemia. Discharge Attestations Time Spent in Discharge Care*: greater than 30 min Quality Metrics Clinical Quality Measures [ No reported AMI, CVA or VTE this stay] Coding Level of Care Code Acute Code for Chg Fwd Diagnoses Essential hypertension I10 Hypertension type: essential hypertension B12 deficiency E53.8 Vitamin D deficiency E55.9 Crohn's disease without complication, unspecified gastrointestinal tract location K50.90 Gastrointestinal tract location: unspecified location Digestive disease complication type: without complication Fracture of hip, right, closed S72.001A Encounter type: initial encounter S/P hip hemiarthroplasty Z96.649 Myasthenia gravis G70.00 Chronic obstructive pulmonary disease, unspecified COPD type J44.9 COPD type: unspecified COPD
[2023-09-26 16:22] VITALS: BP 120/69; PULSE 83; RESP 16; TEMP 36.7; O2SAT 90
== END 2023-09-26 16:23 | disposition skilled nursing facility (03) | DRG 522 ==
LOC: ER 18:30 → MEDSURG 18:41
PROVIDERS: Internal Medicine; Orthopaedic Surgery; Admitting Provider Internal Medicine; Emergency Provider Emergency Medicine; PCP Family Medicine; Visit Provider Internal Medicine
PROC: 0SRR0JZ Replacement of Right Hip Joint, Femoral Surface with Synthetic Substitute, Open Approach (ICD-10-PCS; CPT 27125; 2023-09-21 08:00)
DX: S72.011A Unspecified intracapsular fracture of right femur, initial encounter for closed fracture (principal); K50.90 Crohn's disease, unspecified, without complications; W01.0XXA Fall on same level from slipping, tripping and stumbling without subsequent striking against object, initial encounter; Y92.481 Parking lot as the place of occurrence of the external cause; G70.00 Myasthenia gravis without (acute) exacerbation; I10 Essential (primary) hypertension; E78.5 Hyperlipidemia, unspecified; J44.9 Chronic obstructive pulmonary disease, unspecified; D64.9 Anemia, unspecified; E55.9 Vitamin D deficiency, unspecified; E53.8 Deficiency of other specified B group vitamins
CPT/HCPCS: 36415; 51702; 71045; 73501; 73502; 80048; 80053; 81001; 83735; 83880; 84443; 85025; 87426; 93005; 93306; 94640; 96372; 96374; 97110; 97116; 97161; 97165; 97530; 97535; 99285; C1713; C1776; C9113; J0131; J0690; J1100; J1170; J1644; J1650; J1940; J2270; J2371; J2405; J2704; J3010; J3475; J7030; J7611; J7644

== ENCOUNTER → 2023-10-02 09:01 | Outpatient (BNVA) | payer MEDICARE, SELFPAY | PROVIDERS: PCP Family Medicine; Visit Provider Physician Assistant | DX: Z96.641 Presence of right artificial hip joint (principal) | CPT/HCPCS: 73502; 99024 ==

== ENCOUNTER 2023-10-23 06:00 | Outpatient (RCR) | payer MEDICARE, SELFPAY | END 2023-10-30 23:59 | disposition home or self-care (01) | LOC: APT 06:00 | PROVIDERS: PCP Family Medicine; Visit Provider Internal Medicine | DX: M62.81 Muscle weakness (generalized) (principal); Z96.641 Presence of right artificial hip joint | CPT/HCPCS: 97110; 97161; 97530 ==

== ENCOUNTER → 2023-10-24 08:42 | Outpatient (BNVA) | payer MEDICARE, SELFPAY | PROVIDERS: PCP Family Medicine; Visit Provider Orthopaedic Surgery | DX: Z47.1 Aftercare following joint replacement surgery (principal); Z96.641 Presence of right artificial hip joint | CPT/HCPCS: 73502; 99024 ==

== ENCOUNTER 2023-10-31 06:00 | Outpatient (RCR) | payer MEDICARE, SELFPAY | END 2023-11-28 23:59 | disposition home or self-care (01) | LOC: APT 06:00 | PROVIDERS: PCP Family Medicine; Visit Provider Internal Medicine | DX: M62.81 Muscle weakness (generalized) (principal); Z96.641 Presence of right artificial hip joint | CPT/HCPCS: 97110; 97112; 97530 ==

== ENCOUNTER → 2023-11-15 10:43 | Outpatient (BNVA) | payer MEDICARE, SELFPAY | PROVIDERS: PCP Family Medicine; Visit Provider Family Medicine | DX: E53.8 Deficiency of other specified B group vitamins (principal); R79.89 Other specified abnormal findings of blood chemistry; E87.5 Hyperkalemia; I10 Essential (primary) hypertension; E78.2 Mixed hyperlipidemia; G70.00 Myasthenia gravis without (acute) exacerbation; K50.90 Crohn's disease, unspecified, without complications | CPT/HCPCS: 80053; 80061; 82306; 82607; 85025 ==

== ENCOUNTER → 2023-11-22 09:52 | Outpatient (BNVA) | payer MEDICARE, SELFPAY | PROVIDERS: PCP Family Medicine; Visit Provider Orthopaedic Surgery | DX: Z47.1 Aftercare following joint replacement surgery; Z96.641 Presence of right artificial hip joint | CPT/HCPCS: 73502; 99024 ==

== ENCOUNTER 2023-11-29 06:00 | Outpatient (RCR) | payer MEDICARE, SELFPAY | END 2023-12-29 23:59 | disposition home or self-care (01) | LOC: APT 06:00 | PROVIDERS: PCP Family Medicine; Visit Provider Internal Medicine | DX: Z47.1 Aftercare following joint replacement surgery (principal); Z96.641 Presence of right artificial hip joint; M62.81 Muscle weakness (generalized) | CPT/HCPCS: 97110; 97530 ==

== ENCOUNTER 2023-12-30 06:00 | Outpatient (RCR) | payer MEDICARE, SELFPAY | END 2024-01-28 23:59 | disposition home or self-care (01) | LOC: APT 06:00 | PROVIDERS: PCP Family Medicine; Visit Provider Internal Medicine | DX: Z47.1 Aftercare following joint replacement surgery (principal); Z96.641 Presence of right artificial hip joint; M62.81 Muscle weakness (generalized) | CPT/HCPCS: 97110; 97164 ==

== ENCOUNTER → 2024-01-02 12:58 | Outpatient (BNVA) | payer MEDICARE, SELFPAY | PROVIDERS: PCP Family Medicine; Visit Provider Orthopaedic Surgery | DX: Z98.890 Other specified postprocedural states (principal); Z96.649 Presence of unspecified artificial hip joint | CPT/HCPCS: 73502; 99024 ==

== ENCOUNTER 2024-01-29 06:00 | Outpatient (RCR) | payer MEDICARE, SELFPAY | END 2024-02-28 23:59 | disposition home or self-care (01) | LOC: APT 06:00 | PROVIDERS: PCP Family Medicine; Visit Provider Internal Medicine | DX: M62.81 Muscle weakness (generalized) (principal); Z96.651 Presence of right artificial knee joint | CPT/HCPCS: 97110 ==

== ENCOUNTER 2024-02-14 10:18 | Inpatient (IN) | payer MEDICARE, SELFPAY ==
[2024-02-14] VITALS (24 sets, daily range): BP systolic 90–102; BP diastolic 50–67; PULSE 79–107; RESP 16–23; TEMP 37.1; O2SAT 89–100
--- NOTE | 2024-02-14 10:23 | ECG_ITS ---
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 Measurements Intervals [place] Rate: 92 P: 78 MT: 187 QRS: 58 QRSD: 89 T: 78 QT: 370 QTc: 459 Interpretive Statements SINUS RHYTHM POSSIBLE ANTERIOR MYOCARDIAL INFARCTION , PROBABLY OLD [30 ms Q WAVE IN V3/V4, OR R < 0.2 mV IN V4] Compared to ECG 09/20/2023 16:59:10 No significant change Electronically Signed On 02-14-2024 10:58:30 CDT by Jose Munoz M.D. [id number] f
--- NOTE | 2024-02-14 10:23 | XR_ITS ---
WS: [id number] Portable AP upright chest, 02/14/2024 Clinical Data: dyspnea/cough Comparison: None. Findings: Bilateral lower lobe patchy opacities with interstitial change are seen. No nodules, masses or effusions are seen. The heart is slightly enlarged. The pulmonary vascularity is not increased. N o pneumonia or pneumothorax is seen. The aortic arch and descending thoracic aorta show calcification and tortuosity. Monitor leads are on the chest wall. XR/XR chest 1V portable [id number] Impression: 1. No change in patchy bilateral lower lobe interstitial opacities. 2. Cardiomegaly and atherosclerosis.
--- NOTE | 2024-02-14 10:36 | ED_ITS ---
HPI - Weakness 2 General: Chief complaint: Weakness Stated complaint: sob/hypotension Time Seen by Provider: 02/14/24 10:23 Source: patient Mode of arrival: EMS History of Present Illness: 71-year-old female presents emergency ro om via EMS from a outpatient clinic. She was there for follow-up and generally not felt well she had complained of cough and weakness. She was noted to be hypotensive and EMS was called. On arrival here temp is 99/50. She has had a productive cough but no fever sweats or chills. She denies dysuria urgency or frequency no abdominal pain or chest pain. MD Complaint: generalized weakness Onset (ago): minute(s) PFSH ED 2 PFSH: Medical History Ischemic colitis History of colon polyps Clostridium difficile colitis Myasthenia gravis Post-menopause Hypertension Hyperlipidemia COPD (chronic obstructive pulmonary disease) Crohn's disease Surgical History Hx of colonoscopy (~2017) showed polyps which were not removed H/O oophorectomy History of hysterectomy Family History Other CAD (coronary artery disease) Social History Smoking and tobacco/nicotine status: never used tobacco/nicotine Alcohol intake: current Alcohol intake frequency: holidays/special occasions only Substance/Drug Use: never Lives independently: Yes Housing: House Current occupational status: retired Previous occupational history: 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 IV antibiotics IV fluids started. Prednisone is not on her list but when I questioned her she states she was given prednisone last week and has been taking it. Discussed with hospitalist will admit pressure did improved with IV fluids. Lab Data 02/14/24 10:47 02/14/24 12:42 Radiology Impressions Chest X-Ray 02/14/24 10:23 Impression: 1. No change in patchy bilateral lower lobe interstitial opacities. 2. Cardiomegaly and atherosclerosis. Laboratory Results WBC 30.87 10^3/uL (3.29-11.43) H* 02/14/24 10:47 RBC 4.71 10^6/uL (3.85-5.65) 02/14/24 10:47 Hgb 14.80 g/dL (11.27-16.99) 02/14/24 10:47 Hct 45.2 % (36-47) 02/14/24 10:47 MCV 96.0 fl (85-98) 02/14/24 10:47 MCH 31.4 pg (27-33) 02/14/24 10:47 MCHC 32.7 g/dL (30-55) 02/14/24 10:47 RDW 13.4 % (12.1-15.1) 02/14/24 10:47 Plt Count 395 10^3/cmm (157-399) 02/14/24 10:47 MPV 10.8 fL (7.4-10.4) H 02/14/24 10:47 Neut % (Auto) 89.7 % 02/14/24 10:47 Lymph % (Auto) 4.6 % 02/14/24 10:47 [place] % (Auto) 3.8 % 02/14/24 10:47 Eos % (Auto) 0.1 % 02/14/24 10:47 Baso % (Auto) 0.2 % 02/14/24 10:47 Neut # (Auto) 27.67 10^3/uL (1.8-7.7) H 02/14/24 10:47 Lymph # (Auto) 1.4 10^3/uL (0.8-4.8) 02/14/24 10:47 [place] # (Auto) 1.2 10^3/uL (0.2-0.9) H 02/14/24 10:47 Eos # (Auto) 0.0 10^3/uL (0.0-0.8) 02/14/24 10:47 Baso # (Auto) 0.1 10^3/uL (0.0-0.1) 02/14/24 10:47 Nucleated RBC % (auto) 0 % 02/14/24 10:47 Nucleated RBCs # 0.0 /100WBC 02/14/24 10:47 Sodium 136 mmol/L (136-145) 02/14/24 12:42 Potassium 2.8 mmol/L (3.5-5.1) L* 02/14/24 12:42 Chloride 103 mmol/L (98-107) 02/14/24 12:42 Carbon Dioxide 18 mmol/L (22-29) L 02/14/24 12:42 Anion Gap 17.8 (5-19) 02/14/24 12:42 BUN 33 mg/dL (8-23) H 02/14/24 12:42 Creatinine 1.3 mg/dL (0.5-0.9) H 02/14/24 12:42 GFR Calculation Not Reportable 02/14/24 12:42 Glucose 100 mg/dL (65-115) 02/14/24 12:42 Calculated Osmolality 289 mOsm/kg (285-295) 02/14/24 12:42 Lactic Acid 1.1 mmol/L (0.5-2.2) 02/14/24 12:42 Calcium 6.9 mg/dL (8.5-10.5) L 02/14/24 12:42 Magnesium 1.5 mg/dL (1.7-2.3) L 02/14/24 12:42 Total Bilirubin 0.6 mg/dL (0.15-1.2) 02/14/24 12:42 AST 11 U/L (0-32) 02/14/24 12:42 ALT < 5 U/L (0-33) 02/14/24 12:42 Alkaline Phosphatase 62 U/L (35-105) 02/14/24 12:42 Troponin T Baseline 31 ng/L (0-10) H 02/14/24 12:42 NT-Pro-B Natriuret Pep 1582 pg/mL (0-125) H 02/14/24 12:42 Total Protein 5.0 g/dL (6.6-8.7) L 02/14/24 12:42 Albumin 2.8 g/dL (3.5-5.2) L 02/14/24 12:42 Globulin 2.2 g/dL (1.3-4.6) 02/14/24 12:42 Lipase 20 U/L (13-60) 02/14/24 12:42 All radiology interpretation(s) finalized by discharge Discharge Plan Discharge Patient Disposition: Admitted As Inpatient Admit Provider: Felipe Sainz Clinical Impression: Sepsis, Pneumonia, COPD (chronic obstructive pulmonary disease), Hypokalemia Condition: Stable Coding Level of Care Code ED Post Graduate Internship for Jeny Singh
[2024-02-14] MEDS: dexamethasone 10 mg/mL INJ IM (11:01)
[2024-02-14] MEDS: ipratropium-albuterol 3 mL Neb INHALATION ×3 (11:01→19:49)
[2024-02-14 11:23] LABS: Basophils # 0.1 10^3/uL (0.0-0.1); Basophils % 0.2 %; Eosinophils % 0.1 %; Hematocrit 45.2 % (36-47); Lymphocytes # 1.4 10^3/uL (0.8-4.8); Lymphocytes % 4.6 %; Mean Corpuscular HGB Conc 32.7 g/dL (30-55); Mean Corpuscular Hemoglobin 31.4 pg (27-33); Mean Platelet Volume 10.8 fL (7.4-10.4); Monocytes # 1.2 10^3/uL (0.2-0.9); Monocytes % 3.8 %; Neutrophils # 27.67 10^3/uL (1.8-7.7); Neutrophils % 89.7 %; Nucleated Red Blood Cells % 0 %; Platelet Count 395 10^3/cmm (157-399); Red Blood Count 4.71 10^6/uL (3.85-5.65); Red Cell Distribution Width 13.4 % (12.1-15.1)
--- NOTE | 2024-02-14 11:39 | ECG_ITS ---
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 Measurements Intervals [place] Rate: 88 P: 72 OR: 192 QRS: 51 QRSD: 84 T: 69 QT: 384 QTc: 465 Interpretive Statements SINUS RHYTHM LOW QRS VOLTAGE IN PRECORDIAL LEADS [QRS DEFLECTION < 1.0 mV IN CHEST LEADS] SEPTAL MYOCARDIAL INFARCTION , OF INDETERMINATE AGE [40+ ms Q WAVE IN V1/V2] Compared to ECG 02/14/2024 10:23:44 Low QRS voltage now present Myocardial infarct finding still present Electronically Signed On 02-15-2024 13:10:15 CDT by Diamond Reeves M.D. [id number]
[2024-02-14] MEDS: sodium chloride 0.9% 1,000 ML 999 ML IV (11:43)
[2024-02-14 12:19] LABS: White Blood Count 30.87 10^3/uL (3.29-11.43)
[2024-02-14 13:07] LABS: Troponin(5th) Baseline 31 ng/L (0-10)
[2024-02-14 13:09] LABS: Lactic Sepsis W/Reflex 1.1 mmol/L (0.5-2.2)
[2024-02-14 13:10] LABS: Alanine Aminotransferase < 5 U/L (0-33); Albumin Level 2.8 g/dL (3.5-5.2); Alkaline Phosphatase 62 U/L (35-105); Anion Gap 17.8 (5-19); Aspartate Amino Transferase 11 U/L (0-32); Blood Urea Nitrogen 33 mg/dL (8-23); Calcium 6.9 mg/dL (8.5-10.5); Carbon Dioxide 18 mmol/L (22-29); Chloride 103 mmol/L (98-107); Globulin 2.2 g/dL (1.3-4.6); Glucose 100 mg/dL (65-115); Lipase 20 U/L (13-60); Osmolality Calculated 289 mOsm/kg (285-295); Sodium 136 mmol/L (136-145); Total Bilirubin 0.6 mg/dL (0.15-1.2)
[2024-02-14 13:16] LABS: Potassium 2.8 mmol/L (3.5-5.1)
[2024-02-14] MEDS: cefTRIAXone 1,000 MG in sodium chloride 0.9% (plus) 50 ML 100 MG IV (13:26)
[2024-02-14] MEDS: potassium phosphate (mEq K) 40 MEQ in sodium chloride 0.9% (100 ml) 100 ML 27.2699999999999996 MEQ IV (14:25)
[2024-02-14] MEDS: azithromycin 500 MG in sodium chloride 0.9% 250 ML 250 MG IV (14:37)
[2024-02-14] MEDS: lidocaine 1% INJ 10 mL (per mL) 5 ML IV (14:45)
--- NOTE | 2024-02-14 14:48 | P.HP_ITS ---
Providers/Chief Complaint 2 Primary Care Provider: Ariadna Cruz MD Chief Complaint: sob/hypotension History of Present Illness Pleasant 73-year-old lady with history of COPD, myasthenia gravis, Crohn's disease, HTN, HLD, episode of C. difficile in the past, has been feeling unwell for several weeks, had seen her primary provider has had some nasal congestion, and some dry cough with chest congestion, without improvement from DayQuil/NyQuil, was found to have sinusitis by primary provider, started on cefdinir, prednisone. He has had some mild headache, not the best of appetite. Has continued to take her medications include antihypertensives. Last dose was yesterday. This morning she felt like she was going to pass out, although did not. Came in for evaluation to her primary provider's office, still has been having cough, with abdominal muscle soreness, anemia. Found to be hypotensive, blood pressure 60/38, heart rate 120. EMS was called and she was brought over to ER. Here she was found to have hypoxia, 89%, was started on 2 L nasal cannula. She was found to have leukocytosis 30.87. Heart rate initially 120, with resuscitation down to 90-101, chest x-ray with patchy bilateral lower lobe interstitial opacities. Cardiomegaly and atherosclerosis. She is still having cough. Appetite has not been good. Yesterday she had some softer stool, but denies it ever draining into diarrhea. She has had CT before and this was definitely not similar to her C. difficile episode, however, she understands to let us know in case there is any worsening diarrhea. She states her myasthenia gravis has been under good control, she denies any aspiration with food or drink. Review of Systems 2 Const: Denies: fever(s), chills, body aches or malaise ENMT: Denies: throat pain or oral sores Card: Reports: pre-syncope; Denies: chest pain or edema Resp: Reports: non-productive cough; Denies: change in phlegm color or hemoptysis GI: Denies: abdominal pain, nausea, vomiting, diarrhea, constipation, hematochezia or melena : Denies: flank pain, urinary frequency or hematuria Musc: Denies: back pain, joint swelling or joint redness Skin/Breast: Denies: rash or new lesions Neuro: Denies: headache(s), numbness in extremities, weakness in extremities, dizziness, confusion or seizure-like activity Medications/Allergies Home Medications Medication Instructions Recorded Confirmed Last Taken Type krill oil 500 mg capsule 500 mg PO DAILY #90 caps 11/03/20 02/14/24 02/13/24 Rx cholecalciferol (vitamin D3) 1,250 1,250 mcg PO Q30D #30 caps 08/15/23 02/14/24 02/13/24 Rx mcg (50,000 unit) capsule lisinopril 20 1 tab PO BID #180 tabs 08/15/23 02/14/24 02/13/24 Rx mg-hydrochlorothiazide 12.5 mg tablet mometasone-formoterol HFA 200 2 puff inhalation BID #13 grams 08/15/23 02/14/24 02/13/24 Rx mcg-5 mcg/actuation aerosol inhaler (Dulera) pyridostigmine bromide 60 mg tablet 60 mg PO QID 90 days #360 tabs 08/15/23 02/14/24 02/13/24 Rx mesalamine 1.2 gram tablet,delayed 2.4 g PO BID 09/20/23 02/14/24 02/13/24 History release potassium chloride 20 mEq 20 meq PO DAILY 09/20/23 02/14/24 02/13/24 History tablet,extended release acetaminophen 650 mg 650 mg PO Q8H PRN pain #30 tabs 09/26/23 02/14/24 Unknown Rx tablet,extended release loperamide 2 mg tablet (Imodium 2 mg PO Q6H PRN Diarrhea 09/26/23 02/14/24 Unknown History A-D) furosemide 20 mg tablet 20 mg PO DAILY #30 tabs 12/03/23 02/14/24 02/13/24 Rx calcium carbonate 600 mg PO DAILY #30 tabs 01/28/24 02/14/24 02/13/24 Rx folic acid 1 mg tablet 1 mg PO DAILY #30 tabs 01/28/24 02/14/24 02/13/24 Rx tiotropium bromide 18 mcg capsule 1 cap inhalation DAILY #60 01/28/24 02/14/24 02/13/24 Rx with inhalation device (Spiriva inhalations with HandiHaler) cefdinir 300 mg capsule 300 mg PO BID 10 days #20 caps 02/07/24 02/14/24 02/13/24 Rx atorvastatin 20 mg tablet 20 mg PO QPM 02/14/24 02/14/24 02/13/24 History Allergies Allergy/AdvReac Type Severity Reaction Status Date / Time Influenza Virus Vaccines Allergy Intermediate Numbness Verified 02/07/24 14:37 niacin AdvReac Intermediate hives,itching, Verified 02/07/24 14:37 ankle swelling PFSH Acute 2 PFSH: Medical History Ischemic colitis History of colon polyps Clostridium difficile colitis Myasthenia gravis Post-menopause Hypertension Hyperlipidemia COPD (chronic obstructive pulmonary disease) Crohn's disease Surgical History Hx of colonoscopy (~2017) showed polyps which were not removed H/O oophorectomy History of hysterectomy Family History Other CAD (coronary artery disease) Social History Smoking and tobacco/nicotine status: never used tobacco/nicotine Alcohol intake: current Alcohol intake frequency: holidays/special occasions only Substance/Drug Use: never Lives independently: Yes Housing: House Current occupational status: retired Previous occupational history: 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 [employer] Current gender identity: Female Vitals/I&O/Wt Last Vital Signs Pulse 93 02/14/24 13:20 Resp 16 02/14/24 13:14 BP 102/67 02/14/24 11:56 Pulse Ox 89 L 02/14/24 13:14 O2 Del Method Room Air 02/14/24 13:14 O2 Flow Rate 2 02/14/24 11:56 02/13/24 02/14/24 02/14/24 22:59 06:59 14:59 Intake Total 50 / 50 Balance 50 / 50 Weight last 48 hrs Weight 51.71 kg Physical Exam 2 Const: COMMON NORMALS: patient oriented x3 and alert GENERAL APPEARANCE: c ooperative ORIENTATION/CONSCIOUSNESS: Yes awake HENMT: COMMON NORMALS: oropharynx normal Neck/C-Spine: COMMON NORMALS: no JVD Resp: COMMON NORMALS: normal respiratory effort and clear to auscultation bilaterally AUSCULTATION: clear to auscultation bilaterally Cardio: COMMON NORMALS: no JVD, regular rhythm, S1 normal heart sound present, S2 normal heart sound present and No murmurs present (Cardio) RHYTHM: regular rhythm HEART SOUNDS: S1 normal heart sound present and S2 normal heart sound present GI: COMMON NORMALS: Normal to inspection, nondistended, normoactive bowel sounds present, Soft to palpation and non-tender PALPATION: Yes Soft to palpation Extremity: COMMON NORMALS: no joint enlargement and no pedal edema Neuro: COMMON NORMALS: patient oriented x3 and moves all extremities S ENSORIUM/ORIENTATION: Yes alert Skin: COMMON NORMALS: no rashes or lesions noted GENERAL SKIN EXAM: no rashes or lesions noted Sepsis: Is patient septic: Yes Focused sepsis exam performed: Yes F ocused sepsis exam: Without mottling or cyanosis. Good capillary refill. Data 02/14/24 10:47 02/14/24 12:42 Micro: Microbiology 02/14/24 10:56 Blood Culture - Preliminary Blood SPECIMEN COLLECTED 02/14/24 10:50 Blood Culture - Preliminary Blood SPECIMEN COLLECTED A&P Assessment and plan (1) Sepsis: Reviewed vitals, CBC, CMP, chest x-ray, PCP note, ER note, discussed with ER provider. She has been having productive cough, dry, some nasal and chest congestion, chest x-ray with interstitial infiltrates, concerning for pneumonia with overall picture, did not respond to outpatient treatment with cefdinir and prednisone. Blood cultures collected. Lactic acid reviewed. Started on ceftriaxone, azithromycin, received a dose of dexamethasone. Hypotensive on presentation, received fluid resuscitation, blood pressure so far with improvement. Monitor blood pressure. Severe sepsis with endorgan injury with acute kidney injury, pneumonia with new hypoxia, requiring 2 L of oxygen, in a lady with underlying myasthenia gravis, Crohn's disease. She denies any aspiration with food or drink. With history of myasthenia gravis, will have speech therapy assessed her. Check random serum cortisol. Check TSH. Continue IV hydrocortisone for now with concern for possible adrenal insufficiency. With IV steroids monitor due to risk of hyperglycemia, hypertension. (2) Pneumonia: As above. Blood culture collected, pending. Will request urine bacterial antigens, Legionella and strep. (3) Acute kidney injury: Creatinine up to 1.3, with sepsis. Hypotensive. Received fluid challenge. Reassess kidney function. (4) Hypokalemia: Noted hypokalemia, potassium 2.8, receiving 20 mEq IV. Will resume her daily 20 mEq supplementation as well. Replace magnesium. Plan Goals of care discussion: In case of cardiopulmonary arrest she would want attempted cardiopulmonary resuscitation. Names her Sister Abbey Castro as surrogate decision-maker if she could not make decisions for herself. COPD: Scheduled and as needed breathing treatments. Mild troponin elevation: Baseline 31, 2 hours 27.12. Reviewed NT-proBNP. EKG on my review without suggestion of acute [place]. Complete EKG and troponin series. Hypomagnesemia: Magnesium 1.5. Requesting 2g replacement. Myasthenia gravis: Denies any aspiration events. Crohn's disease: Continue mesalamine, although it is not on formulary, she may take her own if has it available. Reports had softer stool yesterday, but has not started to diarrhea. No blood or dark stool. History of episode of C. difficile: She knows to let us know in case of development of watery diarrhea. States she had a softer stool yesterday, but never turned into diarrhea. Attestations 2 Medical Necessity Statement*: Admission of over 2 midnights anticipated for assessment of management of sepsis, pneumonia which did not respond to outpatient treatment, with new hypoxia, with endorgan injury with BK, in a lady with underlying Crohn's disease, myasthenia gravis. Diagnoses Sepsis A41.9 Pneumonia J18.9 Acute kidney injury N17.9 Hypokalemia E87.6
[2024-02-14 14:49] LABS: Magnesium 1.5 mg/dL (1.7-2.3); NT Pro B Type Natriuretic Pept 1582 pg/mL (0-125)
[2024-02-14 15:12] LABS: Troponin 5 2HR 27.12 ng/L (0-10)
[2024-02-14 15:13] LABS: Troponin 5 2HR Delta -3.88 ABS# (0-10)
--- NOTE | 2024-02-14 16:23 | ECG_ITS ---
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 Measurements Intervals [place] Rate: 86 P: 81 CT: 191 QRS: 56 QRSD: 85 T: 68 QT: 397 QTc: 475 Interpretive Statements SINUS RHYTHM LOW QRS VOLTAGE IN PRECORDIAL LEADS [QRS DEFLECTION < 1.0 mV IN CHEST LEADS] SEPTAL MYOCARDIAL INFARCTION , OF INDETERMINATE AGE [40+ ms Q WAVE IN V1/V2] Compared to ECG 02/14/2024 11:39:03 No significant changes Electronically Signed On 02-17-2024 12:58:04 CDT by Rickey Almendarez M.D. [id number]
--- NOTE | 2024-02-14 16:47 | PC.NURSE ---
arived from ED, transferred self to bed, no c/o at this time
[2024-02-14 16:51] LABS: Add Urine Microscopic? YES; Bilirubin Urine Neg (Negative); Blood Urine Neg (Negative); Glucose Urine UA Norm (Normal); Ketones Urine 1+ (Negative); Leukocyte Esterase Urine Trace (Negative); Nitrate Urine Negative (Negative); Protein Urine Neg (Negative); Urine Appearance Clear (CLEAR); Urine Color Yellow (Yellow); Urobilinogen Urine Norm (Negative); pH Urine 5 (5-7)
[2024-02-14 16:53] LABS: Add Urine Culture? No; Bacteria Urine 1+ /hpf; Hyaline Casts Urine 0-4 /lpf; Squamous Epithelial Cell Urine 0-4 /hpf (0-5); WBC Urine 0-4 /hpf (0-5)
[2024-02-14] MEDS: magnesium sulfate premix 2 GM/50 ML PIGGYBACK IV ×2 (17:45→17:48)
[2024-02-14] MEDS: enoxaparin 30 mg/0.3 mL Syringe SUBCUT (17:45)
[2024-02-14] MEDS: atorvastatin 40 mg Tablet PO (17:46)
[2024-02-14] MEDS: pantoprazole DR 40 mg Tablet PO (17:46)
[2024-02-14 18:25] LABS: Thyroid Stimulating Hormone 1.39 uIU/mL (0.27-4.20)
[2024-02-14] MEDS: hydrocortisone 100 mg/2 mL SDV IVP (19:23)
[2024-02-14 20:36] LABS: Cortisol Random 15.18 ug/dL (2.47-19.5)
[2024-02-14 21:25] LABS: Adenovirus Not Detected (NOT DETECT); Chlamydia Pneumoniae Not Detected (NOT DETECT); Coronavirus 229E,HKU1,NL63,OC4 Not Detected (NOT DETECT); Human Metapneumovirus Not Detected (NOT DETECT); Human Rhinovirus/Enterovirus Not Detected (NOT DETECT); Influenza A Not Detected (NOT DETECT); Influenza A H1 Not Detected (NOT DETECT); Influenza A H1-2009 Not Detected (NOT DETECT); Influenza A H3 Not Detected (NOT DETECT); Influenza B Not Detected (NOT DETECT); Mycoplasma Pneumoniae Not Detected (NOT DETECT); Parainfluenza Virus Type 1 Not Detected (NOT DETECT); Parainfluenza Virus Type 2 Not Detected (NOT DETECT); Parainfluenza Virus Type 3 Not Detected (NOT DETECT); Parainfluenza Virus Type 4 Not Detected (NOT DETECT); Respiratory Syncytial Virus A Not Detected (NOT DETECT); Respiratory Syncytial Virus B Not Detected (NOT DETECT); SARS-COV-2 Not Detected (NOT DETECT)
[2024-02-14 23:30] LABS: Alanine Aminotransferase 7 U/L (0-33); Alkaline Phosphatase 105 U/L (35-105); Anion Gap 18.5 (5-19); Aspartate Amino Transferase 14 U/L (0-32); Blood Urea Nitrogen 34 mg/dL (8-23); Calcium 7.9 mg/dL (8.5-10.5); Carbon Dioxide 18 mmol/L (22-29); Chloride 100 mmol/L (98-107); Creatinine Clr Calc Pharmacy 48.9552; Globulin 3.4 g/dL (1.3-4.6); Glucose 224 mg/dL (65-115); Osmolality Calculated 291 mOsm/kg (285-295); Potassium 3.5 mmol/L (3.5-5.1); Sodium 133 mmol/L (136-145); Total Bilirubin 0.4 mg/dL (0.15-1.2); Total Protein 6.4 g/dL (6.6-8.7)
[2024-02-15] VITALS (36 sets, daily range): BP systolic 90–143; BP diastolic 51–98; PULSE 67–110; RESP 15–29; TEMP 36.2–36.8; O2SAT 90–99; BMI 18.9
[2024-02-15] MEDS: ipratropium-albuterol 3 mL Neb INHALATION ×4 (01:20→21:01)
[2024-02-15] MEDS: hydrocortisone 100 mg/2 mL SDV IVP ×3 (03:55→20:41)
[2024-02-15 04:31] LABS: Basophils # 0.1 10^3/uL (0.0-0.1); Basophils % 0.3 %; Hematocrit 40.3 % (36-47); Lymphocytes # 0.9 10^3/uL (0.8-4.8); Lymphocytes % 4.7 %; Mean Corpuscular Hemoglobin 31.3 pg (27-33); Mean Corpuscular Volume 100.8 fl (85-98); Monocytes # 0.5 10^3/uL (0.2-0.9); Monocytes % 2.4 %; Neutrophils # 16.92 10^3/uL (1.8-7.7); Neutrophils % 91.3 %; Nucleated Red Blood Cells % 0 %; Platelet Count 320 10^3/cmm (157-399); Red Cell Distribution Width 13.2 % (12.1-15.1); White Blood Count 18.54 10^3/uL (3.29-11.43)
[2024-02-15 04:55] LABS: Alanine Aminotransferase 6 U/L (0-33); Alkaline Phosphatase 74 U/L (35-105); Anion Gap 17.4 (5-19); Aspartate Amino Transferase 13 U/L (0-32); Blood Urea Nitrogen 32 mg/dL (8-23); Calcium 7.4 mg/dL (8.5-10.5); Carbon Dioxide 18 mmol/L (22-29); Chloride 101 mmol/L (98-107); Creatinine Clr Calc Pharmacy 55.0746; Globulin 3.4 g/dL (1.3-4.6); Glucose 192 mg/dL (65-115); Osmolality Calculated 288 mOsm/kg (285-295); Potassium 3.4 mmol/L (3.5-5.1); Sodium 133 mmol/L (136-145); Total Bilirubin 0.4 mg/dL (0.15-1.2); Total Protein 6.4 g/dL (6.6-8.7)
[2024-02-15] MEDS: sodium chloride 0.9% 1,000 ML 75 ML IV (07:48)
--- NOTE | 2024-02-15 08:23 | P.PN_ITS ---
Subjective 2 Subjective: Leukocytosis proving Patient on the steroids already before she presented to the ER Blood pressure is better Tolerating diet Asking for food She may be able to go to [facility] today Vitals/I&O/Wt Last Vital Signs Temp 97.5 F L 02/15/24 05:30 Pulse 80 02/15/24 08:03 Resp 18 02/15/24 07:58 BP 105/62 02/15/24 05:30 Pulse Ox 96 02/15/24 07:58 O2 Del Method Nasal Cannula 02/15/24 07:58 O2 Flow Rate 1 02/15/24 07:58 02/14/24 02/15/24 02/15/24 22:59 06:59 14:59 Intake Total 242.5 / 292.5 Output Total 450 / 450 Balance 242.5 / 292.5 -450 / -157.5 Weight last 48 hrs Weight 51.71 kg Weight 51.71 kg Weight 51.71 kg Weight 51.71 kg Physical Exam 2 Narrative: Patient is currently on 1 L Saturating well Room blood pressure is stable Pleasant No active diarrhea Abdominal pain Pleasant cough Nonfocal neuroexam GCS 15 No active signs ofMeningitis Feeling hungry Data 02/15/24 03:51 02/15/24 03:51 Micro: Microbiology 02/14/24 23:30 Legionella Urinary Antigen - Final Urine,Voided 02/14/24 10:56 Blood Culture - Preliminary Blood SPECIMEN COLLECTED 02/14/24 10:50 Blood Culture - Preliminary Blood SPECIMEN COLLECTED A&P Assessment and plan (1) B12 deficiency: (2) Vitamin D deficiency: (3) Acute laryngitis: (4) Crohn's disease: Qualifiers: Gastrointestinal tract location: unspecified location Digestive disease complication type: without complication Qualified Code(s): K50.90 - Crohn's disease, unspecified, without complications (5) Hypokalemia: (6) Sepsis: (7) Myasthenia gravis: (8) COPD (chronic obstructive pulmonary disease): Qualifiers: COPD type: unspecified COPD Qualified Code(s): J44.9 - Chronic obstructive pulmonary disease, unspecified (9) Pneumonia: (10) Hypotension: Plan Hypotension related to sepsis Currently on antibiotics for pneumonia Continue to biotics along gentle IV fluid hydration Hypokalemia: Replenished Hypomagnesemia: Replenish Chronic disease and myasthenia no acute exacerbation Stress dose steroids discontinued Hold antihypertensive regimen 6 Patient has been experiencing poor p.o. intake for last few days Full code Wean off oxygen to room air Transfer out of ICU to [facility] Discharge planning: Likely home by tomorrow COPD without acute exacerbation Mild rhonchi noted currently on 1 L wean oxygen to room air History of CHF no acute exacerbation Attestations 2 Medical Necessity Statement*: Continue medical care Diagnoses B12 deficiency E53.8 Vitamin D deficiency E55.9 Acute laryngitis J04.0 Crohn's disease without complication, unspecified gastrointestinal tract location K50.90 Gastrointestinal tract location: unspecified location Digestive disease complication type: without complication Hypokalemia E87.6 Sepsis A41.9 Myasthenia gravis G70.00 Chronic obstructive pulmonary disease, unspecified COPD type J44.9 COPD type: unspecified COPD Pneumonia J18.9 Hypotension I95.9
[2024-02-15] MEDS: pantoprazole DR 40 mg Tablet PO (08:38)
[2024-02-15] MEDS: folic acid 1 mg Tablet PO (08:38)
[2024-02-15] MEDS: potassium chloride ER 20 mEq Tablet 40 MEQ PO (08:42)
[2024-02-15] MEDS: magnesium oxide 400 mg tablet PO ×2 (08:43→18:04)
[2024-02-15] MEDS: cefTRIAXone 1,000 MG in sodium chloride 0.9% (plus) 50 ML 100 MG IV (12:13)
--- NOTE | 2024-02-15 13:45 | PC.NURSE ---
Patient states she has no questions after MRI results reviewed with Dr. Willett. Patient is working with physical therapy at this time, denies pain, no complaints or requests.
--- NOTE | 2024-02-15 14:19 | PC.NURSE ---
Patient transferred via wheelchair stand by assist, on room air to room 278-1. Patient resting in bed with call light, tv, and telephone in reach. Patient had no requests or complaints at the time of transfer. Clothing, glasses, and shoes in bag at bedside. Patients sister took purse and wallet home. Paper chart left with staff at [facility].
[2024-02-15] MEDS: enoxaparin 30 mg/0.3 mL Syringe SUBCUT (18:04)
[2024-02-15] MEDS: atorvastatin 40 mg Tablet PO (18:04)
[2024-02-15] MEDS: pyridostigmine 60 mg Tablet PO ×2 (18:04→20:41)
[2024-02-16] VITALS (12 sets, daily range): BP systolic 104–131; BP diastolic 60–80; PULSE 71–85; RESP 16–17; TEMP 36.4–36.7; O2SAT 91–97
[2024-02-16] MEDS: ipratropium-albuterol 3 mL Neb INHALATION ×4 (02:15→20:33)
[2024-02-16] MEDS: hydrocortisone 100 mg/2 mL SDV IVP (03:05)
[2024-02-16 06:16] LABS: Basophils % 0.2 %; Hematocrit 40.3 % (36-47); Lymphocytes # 0.6 10^3/uL (0.8-4.8); Lymphocytes % 2.9 %; Mean Corpuscular Hemoglobin 30.6 pg (27-33); Mean Corpuscular Volume 95.5 fl (85-98); Mean Platelet Volume 9.8 fL (7.4-10.4); Monocytes # 0.6 10^3/uL (0.2-0.9); Monocytes % 3.1 %; Neutrophils % 92.1 %; Nucleated Red Blood Cells % 0 %; Platelet Count 346 10^3/cmm (157-399); Red Blood Count 4.22 10^6/uL (3.85-5.65); White Blood Count 19.87 10^3/uL (3.29-11.43)
[2024-02-16 06:36] LABS: Alanine Aminotransferase 7 U/L (0-33); Albumin Level 3.3 g/dL (3.5-5.2); Alkaline Phosphatase 77 U/L (35-105); Anion Gap 13.8 (5-19); Aspartate Amino Transferase 16 U/L (0-32); Blood Urea Nitrogen 27 mg/dL (8-23); Calcium 7.8 mg/dL (8.5-10.5); Carbon Dioxide 22 mmol/L (22-29); Chloride 105 mmol/L (98-107); Creatinine Clr Calc Pharmacy 55.6205; Globulin 3.3 g/dL (1.3-4.6); Glucose 191 mg/dL (65-115); Osmolality Calculated 294 mOsm/kg (285-295); Potassium 3.8 mmol/L (3.5-5.1); Sodium 137 mmol/L (136-145); Total Bilirubin 0.3 mg/dL (0.15-1.2); Total Protein 6.6 g/dL (6.6-8.7)
[2024-02-16 06:37] LABS: Magnesium 2.3 mg/dL (1.7-2.3)
[2024-02-16] MEDS: magnesium oxide 400 mg tablet PO ×2 (08:57→17:33)
[2024-02-16] MEDS: pantoprazole DR 40 mg Tablet PO (08:57)
[2024-02-16] MEDS: folic acid 1 mg Tablet PO (08:58)
[2024-02-16] MEDS: pyridostigmine 60 mg Tablet PO ×4 (08:58→20:31)
[2024-02-16] MEDS: potassium chloride ER 20 mEq Tablet 40 MEQ PO (08:58)
[2024-02-16 09:39] LABS: C.Diff PCR (Lab) POSITIVE (Negative)
[2024-02-16 09:43] LABS: Clostridioides Difficile Toxin NEGATIVE (Negative)
[2024-02-16] MEDS: vancomycin 125 mg Capsule PO ×3 (10:55→22:39)
[2024-02-16] MEDS: cefTRIAXone 1,000 MG in sodium chloride 0.9% (plus) 50 ML 100 MG IV (12:53)
--- NOTE | 2024-02-16 13:50 | P.PN_ITS ---
Subjective 2 Subjective: Started serial treatment patient is having 3 loose stools Discontinue stress test yesterday Blood pressure is better Patient noting feeling slightly better Vitals/I&O/Wt Last Vital Signs Temp 97.8 F 02/16/24 11:38 Pulse 85 02/16/24 11:38 Resp 17 02/16/24 11:38 BP 125/75 02/16/24 11:38 Pulse Ox 91 02/16/24 11:38 O2 Del Method Room Air 02/16/24 11:38 O2 Flow Rate 1 02/15/24 07:58 02/15/24 02/16/24 02/16/24 22:59 06:59 14:59 Intake Total 620 / 1070 240 / 240 Balance 620 / 470 240 / 240 Weight last 48 hrs Weight 53.07 kg Weight 51.71 kg Weight 51.71 kg Weight 51.71 kg Physical Exam 2 Narrative: Pleasant GCS 15 Nonfocal neuroexam Abdomen soft NIH 0 Currently on room air Data 02/16/24 06:08 02/16/24 06:08 Micro: Microbiology 02/14/24 10:50 Blood Culture - Preliminary Blood NEGATIVE TO DATE 02/14/24 10:56 Blood Culture - Preliminary Blood NEGATIVE TO DATE A&P Assessment and plan (1) Hypotension: (2) B12 deficiency: (3) Crohn's disease: Qualifiers: Gastrointestinal tract location: unspecified location Digestive disease complication type: without complication Qualified Code(s): K50.90 - Crohn's disease, unspecified, without complications (4) Sepsis: (5) Myasthenia gravis: (6) Vitamin D deficiency: (7) Acute laryngitis: (8) Hypokalemia: (9) Myasthenia gravis: (10) COPD (chronic obstructive pulmonary disease): Qualifiers: COPD type: unspecified COPD Qualified Code(s): J44.9 - Chronic obstructive pulmonary disease, unspecified (11) Pneumonia: Plan Hypotension related to sepsis Cultures negative Improving sepsis Patient does not take steroids on daily basis despite her inflammatory bowel disease and myasthenia, no acute exacerbation Hold antihypertensive regimen Patient has been experiencing poor p.o. intake for last few days Acute hypoxia 1 L oxygen has been weaned off Blood pressure stable Full code Tolerating diet 3 loose stools, C. difficile DNA is positive however toxin negative Start p.o. vancomycin Attestations 2 Medical Necessity Statement*: Might be able to discharge her by Saturday Diagnoses Hypotension I95.9 B12 deficiency E53.8 Crohn's disease without complication, unspecified gastrointestinal tract location K50.90 Gastrointestinal tract location: unspecified location Digestive disease complication type: without complication Sepsis A41.9 Myasthenia gravis G70.00 Vitamin D deficiency E55.9 Acute laryngitis J04.0 Hypokalemia E87.6 Chronic obstructive pulmonary disease, unspecified COPD type J44.9 COPD type: unspecified COPD Pneumonia J18.9
[2024-02-16] MEDS: enoxaparin 30 mg/0.3 mL Syringe SUBCUT (17:33)
[2024-02-16] MEDS: atorvastatin 40 mg Tablet PO (17:33)
[2024-02-17] VITALS (9 sets, daily range): BP systolic 107–130; BP diastolic 68–74; PULSE 75–86; RESP 16–20; TEMP 36.4–36.7; O2SAT 88–93
[2024-02-17] MEDS: ipratropium-albuterol 3 mL Neb INHALATION ×2 (03:07→07:46)
[2024-02-17] MEDS: vancomycin 125 mg Capsule PO ×2 (04:31→09:45)
[2024-02-17 06:09] LABS: Basophils % 0.3 %; Eosinophils # 0.1 10^3/uL (0.0-0.8); Eosinophils % 0.5 %; Hematocrit 40.2 % (36-47); Lymphocytes # 1.2 10^3/uL (0.8-4.8); Mean Corpuscular HGB Conc 31.6 g/dL (30-55); Mean Corpuscular Hemoglobin 30.7 pg (27-33); Mean Corpuscular Volume 97.1 fl (85-98); Mean Platelet Volume 9.7 fL (7.4-10.4); Monocytes # 1.4 10^3/uL (0.2-0.9); Monocytes % 10.6 %; Neutrophils # 10.14 10^3/uL (1.8-7.7); Neutrophils % 77.5 %; Nucleated Red Blood Cells % 0 %; Platelet Count 300 10^3/cmm (157-399); Red Blood Count 4.14 10^6/uL (3.85-5.65); Red Cell Distribution Width 12.9 % (12.1-15.1)
[2024-02-17 06:35] LABS: Alanine Aminotransferase 8 U/L (0-33); Albumin Level 2.9 g/dL (3.5-5.2); Alkaline Phosphatase 70 U/L (35-105); Anion Gap 12.9 (5-19); Aspartate Amino Transferase 14 U/L (0-32); Blood Urea Nitrogen 13 mg/dL (8-23); Calcium 7.4 mg/dL (8.5-10.5); Carbon Dioxide 22 mmol/L (22-29); Chloride 108 mmol/L (98-107); Creatinine Clr Calc Pharmacy 56.0303; Globulin 2.8 g/dL (1.3-4.6); Glucose 137 mg/dL (65-115); Osmolality Calculated 290 mOsm/kg (285-295); Potassium 3.9 mmol/L (3.5-5.1); Sodium 139 mmol/L (136-145); Total Bilirubin 0.3 mg/dL (0.15-1.2); Total Protein 5.7 g/dL (6.6-8.7)
--- NOTE | 2024-02-17 07:13 | PM.DCS ---
Discharge Providers Date of Admission: 02/14/24 14:15 Date of Discharge: February 17, 2024 Attending Provider at Admission: Felipe Sainz Attending Provider at Discharge: Jaky Farias MD Primary Care Provider: Ariadna Cruz MD Diagnoses at Discharge Discharge Diagnosis (1) Hypotension: Status: Acute (2) B12 deficiency: Status: Acute (3) Crohn's disease: Status: Acute Qualifiers: Digestive disease complication type: without complication Gastrointestinal tract location: unspecified location Qualified Code(s): K50.90 - Crohn's disease, unspecified, without complications (4) Sepsis: Status: Acute (5) Myasthenia gravis: Status: Acute (6) Vitamin D deficiency: Status: Acute (7) Acute laryngitis: Status: Acute (8) Hypokalemia: Status: Acute (9) COPD (chronic obstructive pulmonary disease): Status: Acute Qualifiers: COPD type: unspecified COPD Qualified Code(s): J44.9 - Chronic obstructive pulmonary disease, unspecified (10) Pneumonia: Status: Acute Reason for Visit Reason for Visit: sob/hypotension Hospital Course Hospital Course 73-year-old female who was admitted for management evaluation of hypotension, she was dehydrated was experiencing diarrhea, she was also taking antihypertensive regimen on top of that poor p.o. intake that contributed towards significant hypotension required ICU admission however her blood pressure improved with use IV fluids we did not require vasopressors, her C. difficile PCR is positive however toxins are negative she is experiencing 2-3 green-colored stool without any blood, I decided to put her on 10-day regimen on p.o. vancomycin. Patient was given IV fluids throughout hospitalization. Antihypertensive regimen was held. He required stress dose steroids only for 24 to 30 hours then it was discontinued and a blood pressure remained stable. She did not show any signs of addisonian crisis. Physical Exam Narrative: signs of dehydration improving Hemodynamically stable GCS 15 On room air Abdomen soft No active nausea or vomiting Discharge Data Studies Completed and Pending Completed Studies During Hospitalization Category Date Time Status XR chest 1V portable [id number] Stat Exams 02/14/24 10:23 Completed Pending at discharge Category Date Time Status Blood Culture Stat Lab 02/14/24 10:56 Results Legionella Antibody Routine Lab 02/14/24 12:42 Received Sputum Culture and Gram Stain Stat Lab 02/14/24 12:16 Uncollected Troponin(5th) 6 hour. Timed Lab 02/14/24 16:23 Ordered Radiology Impressions Chest X-Ray 02/14/24 10:23 Impression: 1. No change in patchy bilateral lower lobe interstitial opacities. 2. Cardiomegaly and atherosclerosis. Laboratory Results WBC 13.10 10^3/uL (3.29-11.43) H 02/17/24 05:57 RBC 4.14 10^6/uL (3.85-5.65) 02/17/24 05:57 Hgb 12.70 g/dL (11.27-16.99) 02/17/24 05:57 Hct 40.2 % (36-47) 02/17/24 05:57 MCV 97.1 fl (85-98) 02/17/24 05:57 MCH 30.7 pg (27-33) 02/17/24 05:57 MCHC 31.6 g/dL (30-55) 02/17/24 05:57 RDW 12.9 % (12.1-15.1) 02/17/24 05:57 Plt Count 300 10^3/cmm (157-399) 02/17/24 05:57 MPV 9.7 fL (7.4-10.4) 02/17/24 05:57 Neut % (Auto) 77.5 % 02/17/24 05:57 Lymph % (Auto) 9.0 % 02/17/24 05:57 [place] % (Auto) 10.6 % 02/17/24 05:57 Eos % (Auto) 0.5 % 02/17/24 05:57 Baso % (Auto) 0.3 % 02/17/24 05:57 Neut # (Auto) 10.14 10^3/uL (1.8-7.7) H 02/17/24 05:57 Lymph # (Auto) 1.2 10^3/uL (0.8-4.8) 02/17/24 05:57 [place] # (Auto) 1.4 10^3/uL (0.2-0.9) H 02/17/24 05:57 Eos # (Auto) 0.1 10^3/uL (0.0-0.8) 02/17/24 05:57 Baso # (Auto) 0.0 10^3/uL (0.0-0.1) 02/17/24 05:57 Nucleated RBC % (auto) 0 % 02/17/24 05:57 Nucleated RBCs # 0.0 /100WBC 02/17/24 05:57 Sodium 139 mmol/L (136-145) 02/17/24 05:57 Potassium 3.9 mmol/L (3.5-5.1) 02/17/24 05:57 Chloride 108 mmol/L (98-107) H 02/17/24 05:57 Carbon Dioxide 22 mmol/L (22-29) 02/17/24 05:57 Anion Gap 12.9 (5-19) 02/17/24 05:57 BUN 13 mg/dL (8-23) 02/17/24 05:57 Creatinine 0.6 mg/dL (0.5-0.9) 02/17/24 05:57 GFR Calculation Not Reportable 02/17/24 05:57 Glucose 137 mg/dL (65-115) H 02/17/24 05:57 Calculated Osmolality 290 mOsm/kg (285-295) 02/17/24 05:57 Lactic Acid 1.1 mmol/L (0.5-2.2) 02/14/24 12:42 Calcium 7.4 mg/dL (8.5-10.5) L 02/17/24 05:57 Magnesium 2.3 mg/dL (1.7-2.3) 02/16/24 06:08 Total Bilirubin 0.3 mg/dL (0.15-1.2) 02/17/24 05:57 AST 14 U/L (0-32) 02/17/24 05:57 ALT 8 U/L (0-33) 02/17/24 05:57 Alkaline Phosphatase 70 U/L (35-105) 02/17/24 05:57 Troponin T Baseline 31 ng/L (0-10) H 02/14/24 12:42 Troponin T 120 Minute 27.12 ng/L (0-10) H 02/14/24 14:48 Delta Troponin T -3.88 ABS# (0-10) L 02/14/24 14:48 NT-Pro-B Natriuret Pep 1582 pg/mL (0-125) H 02/14/24 12:42 Total Protein 5.7 g/dL (6.6-8.7) L 02/17/24 05:57 Albumin 2.9 g/dL (3.5-5.2) L 02/17/24 05:57 Globulin 2.8 g/dL (1.3-4.6) 02/17/24 05:57 Lipase 20 U/L (13-60) 02/14/24 12:42 TSH 1.39 uIU/mL (0.27-4.20) 02/14/24 12:42 Random Cortisol 15.18 ug/dL (2.47-19.5) 02/14/24 12:42 Urine Color Yellow (Yellow) 02/14/24 16:17 Urine Appearance Clear (CLEAR) 02/14/24 16:17 Urine pH 5 (5-7) 02/14/24 16:17 Ur Specific [place] 1.020 (1.005-1.030) 02/14/24 16:17 Urine Protein Neg (Negative) 02/14/24 16:17 Urine Glucose (UA) Norm (Normal) 02/14/24 16:17 Urine Ketones 1+ (Negative) H 02/14/24 16:17 Urine Blood Neg (Negative) 02/14/24 16:17 Urine Nitrate Negative (Negative) 02/14/24 16:17 Urine Bilirubin Neg (Negative) 02/14/24 16:17 Urine Urobilinogen Norm mg/dL (Negative) 02/14/24 16:17 Ur Leukocyte Esterase Trace (Negative) H 02/14/24 16:17 Urine RBC None /hpf (0-2) 02/14/24 16:17 Urine WBC 0-4 /hpf (0-5) H 02/14/24 16:17 Ur Squamous Epith Cells 0-4 /hpf (0-5) H 02/14/24 16:17 Amorphous Sediment Not Reportable 02/14/24 16:17 Urine Bacteria 1+ /hpf (NONE) H 02/14/24 16:17 Hyaline Casts 0-4 /lpf H 02/14/24 16:17 Adenovirus (PCR) Not detected (NOT DETECT) 02/14/24 19:30 C. pneumoniae DNA (PCR) Not detected (NOT DETECT) 02/14/24 19:30 C. difficile (PCR) Positive (Negative) H 02/16/24 06:32 C.difficile Tox Confrm Negative (Negative) 02/16/24 06:32 Coronavirus 229E (PCR) Not detected (NOT DETECT) 02/14/24 19:30 Human Metapneumovir PCR Not detected (NOT DETECT) 02/14/24 19:30 Influenza A (H1) PCR Not detected (NOT DETECT) 02/14/24 19:30 Influ A (H1/09) PCR Not detected (NOT DETECT) 02/14/24 19:30 Influenza A (H3) PCR Not detected (NOT DETECT) 02/14/24 19:30 Influenza Type A (PCR) Not detected (NOT DETECT) 02/14/24 19:30 Influenza Type B (PCR) Not detected (NOT DETECT) 02/14/24 19:30 M. pneumoniae (PCR) Not detected (NOT DETECT) 02/14/24 19:30 Parainfluenza 1 (PCR) Not detected (NOT DETECT) 02/14/24 19:30 Parainfluenza 2 (PCR) Not detected (NOT DETECT) 02/14/24 19:30 Parainfluenza 3 (PCR) Not detected (NOT DETECT) 02/14/24 19:30 Parainfluenza 4 (PCR) Not detected (NOT DETECT) 02/14/24 19:30 RSV Type A (PCR) Not detected (NOT DETECT) 02/14/24 19:30 RSV Type B (PCR) Not detected (NOT DETECT) 02/14/24 19:30 Entero/Rhino (PCR) Not detected (NOT DETECT) 02/14/24 19:30 SARS-CoV-2 (PCR) Not detected (NOT DETECT) 02/14/24 19:30 Vitals Last Vital Signs Temp 98.0 F 02/17/24 04:00 Pulse 75 02/17/24 04:00 Resp 17 02/17/24 04:00 BP 116/68 02/17/24 04:00 Pulse Ox 90 02/17/24 04:00 O2 Del Method Room Air 02/17/24 04:00 O2 Flow Rate 1 02/15/24 07:58 Discharge Plan Discharge Patient Disposition: Home Condition: Stable Prescriptions: New potassium chloride [Klor-Con M20] 20 mEq Tablet,Er Particles/Crystals 40 meq PO DAILY Qty: 3 0RF magnesium oxide 400 mg (241.3 mg magnesium) Tablet 400 mg PO BID Qty: 10 0RF vancomycin 125 mg Capsule 125 mg PO Q6H Qty: 36 0RF Continued cholecalciferol (vitamin D3) 1,250 mcg (50,000 unit) capsule 1,250 mcg PO Q30D Qty: 30 3RF Dulera 200-5 mcg/actuation HFA aerosol inhaler 2 puff inhalation BID Qty: 13 4RF pyridostigmine bromide 60 mg tablet 60 mg PO QID 90 Days Qty: 360 3RF cefdinir 300 mg capsule 300 mg PO BID 10 Days Qty: 20 0RF krill oil 500 mg capsule 500 mg PO DAILY Qty: 90 4RF Spiriva with HandiHaler 18 mcg capsule, w/inhalation device 1 cap inhalation DAILY Qty: 60 4RF Rx Instructions: puncture 1 cap using device; one dose = 2 inhalations calcium carbonate 600 mg calcium (1,500 mg) tablet 600 mg PO DAILY Qty: 30 3RF folic acid 1 mg tablet 1 mg PO DAILY Qty: 30 3RF mesalamine 1.2 gram tablet,delayed release (DR/EC) 2.4 g PO BID potassium chloride 20 mEq tablet extended release 20 meq PO DAILY loperamide [Imodium A-D] 2 mg Tablet 2 mg PO Q6H PRN (Reason: Diarrhea) acetaminophen 650 mg tablet extended release 650 mg PO Q8H PRN (Reason: pain) Qty: 30 0RF atorvastatin 20 mg tablet 20 mg PO QPM Held lisinopril-hydrochlorothiazide 20-12.5 mg tablet 1 tab PO BID Qty: 180 3RF Hold Instructions: Resume on 02/22/24. furosemide 20 mg tablet 20 mg PO DAILY Qty: 30 3RF Hold Instructions: Resume on 02/22/24. Discharge Orders: Discharge Order (Routine); Ordered 02/17/24 Ordered By: Jaky Farias Referrals: Ariadna Cruz MD [Primary Care Provider] - 4-7 days Discharge Diet: Cardiac Discharge Activity: Increase activity as tolerated Patient Instructions: Opioid Safety Discharge Attestations Time Spent in Discharge Care*: greater than 30 min Quality Metrics Clinical Quality Measures [ No reported AMI, CVA or VTE this stay] Coding Level of Care Code Acute Code for Chg Fwd Diagnoses Hypotension I95.9 B12 deficiency E53.8 Crohn's disease without complication, unspecified gastrointestinal tract location K50.90 Digestive disease complication type: without complication Gastrointestinal tract location: unspecified location Sepsis A41.9 Myasthenia gravis G70.00 Vitamin D deficiency E55.9 Acute laryngitis J04.0 Hypokalemia E87.6 Chronic obstructive pulmonary disease, unspecified COPD type J44.9 COPD type: unspecified COPD Pneumonia J18.9
[2024-02-17] MEDS: pyridostigmine 60 mg Tablet PO (08:20)
[2024-02-17] MEDS: potassium chloride ER 20 mEq Tablet 40 MEQ PO (08:20)
[2024-02-17] MEDS: folic acid 1 mg Tablet PO (08:20)
[2024-02-17] MEDS: magnesium oxide 400 mg tablet PO (08:21)
[2024-02-17] MEDS: pantoprazole DR 40 mg Tablet PO (08:21)
--- NOTE | 2024-02-17 12:14 | PC.SOCIAL ---
IMM Update pg 2 of IMM updated and reviewed w/ patient. Copy provided and copy dated, initialed and placed in chart.
[2024-02-18 16:49] LABS: Legionella Antibody <1:256 TITER
== END 2024-02-17 13:05 | disposition home or self-care (01) | DRG 871 ==
LOC: ER 11:27 → ICU 15:13 → MEDSURG 02-15 14:13
PROVIDERS: Family Medicine; Admitting Provider Internal Medicine; Emergency Provider Family Medicine; PCP Family Medicine; Visit Provider Internal Medicine
DX: A41.9 Sepsis, unspecified organism (principal); J18.9 Pneumonia, unspecified organism; N17.9 Acute kidney failure, unspecified; K50.90 Crohn's disease, unspecified, without complications; R65.20 Severe sepsis without septic shock; E78.5 Hyperlipidemia, unspecified; J44.9 Chronic obstructive pulmonary disease, unspecified; G70.00 Myasthenia gravis without (acute) exacerbation; E53.8 Deficiency of other specified B group vitamins; E55.9 Vitamin D deficiency, unspecified; J04.0 Acute laryngitis; I11.0 Hypertensive heart disease with heart failure; I50.9 Heart failure, unspecified; R09.02 Hypoxemia; E87.6 Hypokalemia; E83.42 Hypomagnesemia
CPT/HCPCS: 36415; 71045; 80053; 81001; 82533; 83605; 83690; 83735; 83880; 84443; 84484; 85025; 86713; 87040; 87324; 87449; 87486; 87493; 87581; 87633; 92523; 93005; 94640; 94664; 96365; 96366; 96367; 96372; 99285; J0456; J0696; J1100; J1650; J1720; J3475; J7030; J7050

== ENCOUNTER 2024-04-14 12:52 | Inpatient (IN) | payer MEDICARE, SELFPAY ==
[2024-04-14] VITALS (40 sets, daily range): BP systolic 80–133; BP diastolic 44–71; PULSE 96–128; RESP 12–38; TEMP 35.3–36.4; O2SAT 87–100; BMI 17.9
--- NOTE | 2024-04-14 13:05 | XRR_ITS ---
PROCEDURE INFORMATION: Exam: XR Chest Exam date and time: 04/14/2024 1:38 PM Age: 73 years old Clinical indication: Cough and dyspnea; Additional info: Dyspnea/cough TECHNIQUE: Imaging protocol: Radiologic exam of the chest. Views: 1 view. COMPARISON: CR XR chest 1V portable [id number] 02/14/2024 10:28 AM FINDINGS: Lungs: Unchanged bilateral bullous emphysema with hyperinflation of the lungs. Decreased bilateral edema, pneumonitis, and/or atelectasis in the lung bases. The residual basilar opacity may be scarring. Otherwise, unremarkable. Pleural spaces: Unremarkable. No pleural effusion. No pneumothorax. Heart/Mediastinum: Unremarkable. No cardiomegaly. Bones/joints: Unremarkable. XR/XR chest 1V portable [id number] IMPRESSION: 1. Decreased bilateral edema, pneumonitis, and/or atelectasis in the lung bases. 2. Additional details as above.
--- NOTE | 2024-04-14 13:06 | ECG_ITS ---
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 Measurements Intervals [place] Rate: 108 P: 81 IA: 213 QRS: 67 QRSD: 97 T: 78 QT: 338 QTc: 455 Interpretive Statements SINUS TACHYCARDIA WITH FIRST DEGREE AV BLOCK INTERPRETATION BASED ON A DEFAULT AGE OF 40 YEARS Compared to ECG 02/14/2024 17:09:11 First degree AV block now present Sinus rhythm no longer present Myocardial infarct finding no longer present Electronically Signed On 04-14-2024 21:31:54 CDT by Diamond Reeves M.D. [id number]
[2024-04-14 13:40] LABS: Basophils # 0.1 10^3/uL (0.0-0.1); Basophils % 0.3 %; Eosinophils # 0.1 10^3/uL (0.0-0.8); Eosinophils % 0.2 %; Hematocrit 36.8 % (36-47); Lymphocytes # 0.5 10^3/uL (0.8-4.8); Lymphocytes % 2.3 %; Mean Corpuscular HGB Conc 31.8 g/dL (30-55); Mean Corpuscular Hemoglobin 29.6 pg (27-33); Mean Corpuscular Volume 93.2 fl (85-98); Mean Platelet Volume 10.6 fL (7.4-10.4); Monocytes # 0.6 10^3/uL (0.2-0.9); Monocytes % 2.5 %; Neutrophils # 20.19 10^3/uL (1.8-7.7); Neutrophils % 91.3 %; Nucleated Red Blood Cells % 0 %; Platelet Count 395 10^3/cmm (157-399); Red Blood Count 3.95 10^6/uL (3.85-5.65); Red Cell Distribution Width 14.6 % (12.1-15.1); White Blood Count 22.11 10^3/uL (3.29-11.43)
--- NOTE | 2024-04-14 13:41 | ED_ITS ---
HPI - SOB/Dyspnea 2 General: Chief Complaint: Shortness of Breath/Dyspnea Stated Complaint: SOB Time Seen by Provider: 04/14/24 13:05 Source: patient Mode of arrival: ambulatory History of Present Illness: HPI Narrative: 71-year-old female presents emergency ro om claiming increasing shortness of breath over the last week. She has a history of COPD presents emergency room tachypneic and tachycardic. She does not usually wear oxygen at home her sats are normal at room air. She denies chest or abdominal pain does admit to significant weight loss over the last year. She went from approximately 120 to less than 1 pen per her report. However our weight reported today is 107. She states she has early satiety. She denies hematemesis coffee-ground emesis. MD elicited complaint: shortness of breath Pertinent past history: COPD Exacerbating factors: exertion Relieving factors: rest Known history of: COPD Associated symptoms: Reports chest congestion, cough and nausea; Deny abdominal pain, chest pain, diaphoresis, dizziness, extremity pain, fever(s), hemoptysis, lightheadedness, myalgias, orthopnea, palpitations, paresthesias, polydipsia, polyuria, rash, sense of impending doom, syncope or vomiting Treatment prior to arrival: none Review of Systems 2 Const: Denies: fever(s) or diaphoresis Card: Denies: chest pain, palpitations, lightheadedness, syncope or orthopnea Resp: Reports: chest congestion; Denies: hemoptysis GI: Reports: nausea; Denies: abdominal pain or vomiting : Denies: dysuria, urinary frequency or urinary urgency Musc: Denies: extremity pain Skin/Breast: Denies: rash Neuro: Denies: dizziness Endo: Denies: polyuria or polydipsia PFSH ED 2 PFSH: Medical History Enrolled in chronic care management Clostridium difficile colitis Hypotension Hypokalemia Pneumonia Sepsis COPD (chronic obstructive pulmonary disease) Vitamin D deficiency B12 deficiency Acute kidney injury Acute laryngitis Myasthenia gravis Ischemic colitis History of colon polyps Myasthenia gravis Post-menopause Hypertension Hyperlipidemia COPD (chronic obstructive pulmonary disease) Crohn's disease Surgical History Hx of colonoscopy (~2018) showed polyps which were not removed H/O oophorectomy History of hysterectomy Family History Other CAD (coronary artery disease) Social History Smoking and tobacco/nicotine status: never used tobacco/nicotine Alcohol intake: current Alcohol intake frequency: holidays/special occasions only Substance/Drug Use: never Lives independently: Yes Housing: House Current occupational status: retired Previous occupational history: 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 [employer] Current gender identity: Female Physical Exam 2 Const: COMMON NORMALS: no acute distress GENERAL APPEARANCE: cooperative and comfortable NUTRITIONAL APPEARANCE: cachectic O RIENTATION/CONSCIOUSNESS: Yes awake, Yes oriented to person, Yes oriented to place and Yes oriented to time HENMT: COMMON NORMALS: normocephalic, atraumatic and hearing grossly normal bilaterally HEAD & SCALP: normocephalic and atraumatic Resp: COMMON NORMALS: normal respiratory effort, No retractions and No use of accessory muscles AUSCULTATION: crackles Cardio: COMMON NORMALS: regular rhythm and No murmurs present (Cardio) R ATE: tachycardic RHYTHM: regular rhythm GI: COMMON NORMALS: Soft to palpation and No hepatosplenomegaly present A USCULTATION: Yes normoactive bowel sounds PALPATION: Yes Soft to palpation, No Tenderness to palpation present (GI), No Guarding due to palpation present (GI) and Yes No hepatosplenomegaly present Extremity: COMMON NORMALS: normal to inspection, capillary refill normal, no clubbing, cyanosis or edema, no calf tenderness and no pedal edema Neuro: SENSORIUM/ORIENTATION: Yes oriented to person, Yes oriented to place and Yes oriented to time Skin: COMMON NORMALS: no rashes or lesions noted GENERAL SKIN EXAM: no rashes or lesions noted Course 2 Vital Signs: Vital signs: Vital Signs Temperature 95.6 F L 04/14/24 13:16 Pulse Rate 111 H 04/14/24 13:05 Respiratory Rate 24 H 04/14/24 13:05 Blood Pressure 101/58 04/14/24 13:05 MDM - SOB/Dyspnea Medical Decision Making Metabolic acidosis secondary to acute renal failure with hyperkalemia. She has been given hyperkalemia regimen including calcium chloride, albuterol, insulin was glucose bolus sodium bicarb drip. At this point I think she can tolerate p.o. Kayexalate. Suspect this came from fluid losses due to heat exposure. She denies any recent diarrhea within the last couple of months she was treated for C. difficile but is not having any symptoms at this time. She does have pretty substantial weight loss which may need to be evaluated further. She is tachypneic at this time but I think it is in response to her metabolic acidosis she has a mild pneumonia on the chest x-ray but not enough to cause dyspnea and her O2 sat is 100%. Patient given renally adjusted doses of Vanco and Zosyn. Consult nephrology admit to ICU. Dr. Farrell will admit for hospitalist service and has been to see the patient in the ER. Medical Records I reviewed the patient's medical records. Lab Data I reviewed the patient's lab results. 04/14/24 13:29 04/14/24 13:29 Labs/Radiology: Radiology Impressions Chest X-Ray 04/14/24 13:05 IMPRESSION: 1. Decreased bilateral edema, pneumonitis, and/or atelectasis in the lung bases. 2. Additional details as above. Laboratory Results WBC 22.11 10^3/uL (3.29-11.43) H 04/14/24 13:29 RBC 3.95 10^6/uL (3.85-5.65) 04/14/24 13:29 Hgb 11.70 g/dL (11.27-16.99) 04/14/24 13:29 Hct 36.8 % (36-47) 04/14/24 13:29 MCV 93.2 fl (85-98) 04/14/24 13:29 MCH 29.6 pg (27-33) 04/14/24 13:29 MCHC 31.8 g/dL (30-55) 04/14/24 13:29 RDW 14.6 % (12.1-15.1) 04/14/24 13:29 Plt Count 395 10^3/cmm (157-399) 04/14/24 13:29 MPV 10.6 fL (7.4-10.4) H 04/14/24 13:29 Neut % (Auto) 91.3 % 04/14/24 13:29 Lymph % (Auto) 2.3 % 04/14/24 13:29 [place] % (Auto) 2.5 % 04/14/24 13:29 Eos % (Auto) 0.2 % 04/14/24 13:29 Baso % (Auto) 0.3 % 04/14/24 13:29 Neut # (Auto) 20.19 10^3/uL (1.8-7.7) H 04/14/24 13:29 Lymph # (Auto) 0.5 10^3/uL (0.8-4.8) L 04/14/24 13:29 [place] # (Auto) 0.6 10^3/uL (0.2-0.9) 04/14/24 13:29 Eos # (Auto) 0.1 10^3/uL (0.0-0.8) 04/14/24 13:29 Baso # (Auto) 0.1 10^3/uL (0.0-0.1) 04/14/24 13:29 Nucleated RBC % (auto) 0 % 04/14/24 13:29 Nucleated RBCs # 0.0 /100WBC 04/14/24 13:29 Specimen Type Arterial 04/14/24 13:42 Sample Site Radial, left 04/14/24 13:42 ABG pH 7.05 (7.35-7.45) L* 04/14/24 13:42 ABG pCO2 17.1 mmHg (35-45) L* 04/14/24 13:42 ABG pO2 90.2 mmHg (80.0-100.0) 04/14/24 13:42 ABG PO2/FiO2 Ratio 429 04/14/24 13:42 ABG HCO3 4.7 mmol/L (22-26) L 04/14/24 13:42 ABG O2 Saturation 94.9 04/14/24 13:42 ABG Base Excess -24.1 mmol/L (-2.0-2.0) L 04/14/24 13:42 [place] Test Pos 04/14/24 13:42 A-a O2 Gradient 4.6 mmHg (5-10) L 04/14/24 13:42 Hematocrit 34.5 % (37-47) L 04/14/24 13:42 Hgb O2 Saturation 92.7 % (95-100) L 04/14/24 13:42 Carboxyhemoglobin 0.6 %THgb (0.4-20.1) 04/14/24 13:42 Methemoglobin 1.7 % (0.4-1.5) H 04/14/24 13:42 Total Hemoglobin 11.3 g/dL (12-16) L 04/14/24 13:42 Sodium 143.0 mmol/L (131-143) 04/14/24 13:42 Potassium 6.4 mmol/L (3.5-5.0) H 04/14/24 13:42 Glucose 137.0 mg/dL (70-115) H 04/14/24 13:42 Ionized Calcium 1.2 mmol/L (1.1-1.4) 04/14/24 13:42 O2 Delivery Device Room air 04/14/24 13:42 FiO2 21.0 % 04/14/24 13:42 Chemical Operator ID [place] 04/14/24 13:42 Sodium 137 mmol/L (136-145) 04/14/24 13:29 Potassium 6.4 mmol/L (3.5-5.1) H 04/14/24 13:29 Chloride 100 mmol/L (98-107) 04/14/24 13:29 Carbon Dioxide 5 mmol/L (22-29) L* 04/14/24 13:29 Anion Gap 38.4 (5-19) H 04/14/24 13:29 BUN 200 mg/dL (8-23) H* D 04/14/24 13:29 Creatinine 13.9 mg/dL (0.5-0.9) H* 04/14/24 13:29 GFR Calculation Not Reportable 04/14/24 13:29 Glucose 133 mg/dL (65-115) H 04/14/24 13:29 Calculated Osmolality 353 mOsm/kg (285-295) H 04/14/24 13:29 Calcium 8.9 mg/dL (8.5-10.5) 04/14/24 13:29 Magnesium 2.2 mg/dL (1.7-2.3) 04/14/24 13:29 Total Bilirubin 0.3 mg/dL (0.15-1.2) 04/14/24 13:29 AST 13 U/L (0-32) 04/14/24 13:29 ALT 9 U/L (0-33) 04/14/24 13:29 Alkaline Phosphatase 96 U/L (35-105) 04/14/24 13:29 Creatine Kinase 126 U/L (26-192) 04/14/24 13:29 Troponin T Baseline 115 ng/L (0-10) H* 04/14/24 13:29 Total Protein 8.0 g/dL (6.6-8.7) 04/14/24 13:29 Albumin 3.9 g/dL (3.5-5.2) 04/14/24 13:29 Globulin 4.1 g/dL (1.3-4.6) 04/14/24 13:29 Lipase 159 U/L (13-60) H 04/14/24 13:29 All radiology interpretation(s) finalized by discharge Discharge Plan Discharge Patient Disposition: Admitted As Inpatient Clinical Impression: Acute renal failure, Hyperkalemia, Pneumonia Condition: Stable Prescriptions: No Action cholecalciferol (vitamin D3) 1,250 mcg (50,000 unit) capsule 1,250 mcg PO Q30D Qty: 30 3RF lisinopril-hydrochlorothiazide 20-12.5 mg tablet 1 tab PO BID Qty: 180 3RF Hold Instructions: Resume on 02/22/24. pyridostigmine bromide 60 mg tablet 60 mg PO QID 90 Days Qty: 360 3RF betamethasone dipropionate 0.05 % ointment 1 applic topical DAILY Qty: 45 0RF hydroxyzine HCl 25 mg tablet 25 mg PO TID PRN (Reason: itching) Qty: 30 2RF krill oil 500 mg capsule 500 mg PO DAILY Qty: 90 4RF furosemide 20 mg tablet 20 mg PO DAILY Qty: 30 3RF Hold Instructions: Resume on 02/22/24. Spiriva with HandiHaler 18 mcg capsule, w/inhalation device 1 cap inhalation DAILY Qty: 60 4RF Rx Instructions: puncture 1 cap using device; one dose = 2 inhalations calcium carbonate 600 mg calcium (1,500 mg) tablet 600 mg PO DAILY Qty: 30 3RF folic acid 1 mg tablet 1 mg PO DAILY Qty: 30 3RF Dulera 200-5 mcg/actuation HFA aerosol inhaler See Rx Instructions .ROUTE .COMPLEX Qty: 13 4RF Dose Instruction: INHALE TWO PUFFS into lungs TWICE DAILY Rx Instructions: INHALE TWO PUFFS into lungs TWICE DAILY mesalamine 1.2 gram tablet,delayed release (DR/EC) 2.4 g PO BID loperamide [Imodium A-D] 2 mg Tablet 2 mg PO Q6H PRN (Reason: Diarrhea) acetaminophen 650 mg tablet extended release 650 mg PO Q8H PRN (Reason: pain) Qty: 30 0RF atorvastatin 20 mg tablet 20 mg PO QPM Klor-Con M20 20 mEq Tablet,Er Particles/Crystals 40 meq PO DAILY Qty: 3 0RF magnesium oxide 400 mg (241.3 mg magnesium) Tablet 400 mg PO BID Qty: 10 0RF Referrals: Ariadna Cruz MD [Primary Care Provider] - Coding Level of Care Code ED [place] Operator for Jeny Singh
[2024-04-14 13:53] LABS: Alveolar-Arterial Oxygen Gradi 4.6 mmHg (5-10); Arterial Blood Gas Hematocrit 34.5 % (37-47); Base Excess ABG -24.1 mmol/L (-2.0-2.0); Blood Gas Allen Test Pos; Blood Gas Operator Identificat WALCI; Blood Gas Sample Site Radial, left; Blood Gas Sample Type Arterial; Carboxyhemoglobin 0.6 %THgb (0.4-20.1); HCO3 ABG 4.7 mmol/L (22-26); HGB O2 Sat 92.7 % (95-100); Ionized Calcium Level - ABG 1.2 mmol/L (1.1-1.4); Methemoglobin 1.7 % (0.4-1.5); Oxygen Device ROOM AIR; Oxygen Saturation ABG 94.9; PO2 ABG 90.2 mmHg (80.0-100.0); PO2 FiO2 Ratio Arterial Blood 429; Potassium Level - ABG 6.4 mmol/L (3.5-5.0); Total Hemoglobin 11.3 g/dL (12-16)
[2024-04-14 13:54] LABS: ABG PCO2 17.1 mmHg (35-45); ABG PH Result 7.05 (7.35-7.45)
[2024-04-14 13:57] LABS: Alanine Aminotransferase 9 U/L (0-33); Albumin Level 3.9 g/dL (3.5-5.2); Alkaline Phosphatase 96 U/L (35-105); Anion Gap 38.4 (5-19); Aspartate Amino Transferase 13 U/L (0-32); Calcium 8.9 mg/dL (8.5-10.5); Chloride 100 mmol/L (98-107); Creatinine Clr Calc Pharmacy 3.1069; Globulin 4.1 g/dL (1.3-4.6); Glucose 133 mg/dL (65-115); Potassium 6.4 mmol/L (3.5-5.1); Sodium 137 mmol/L (136-145); Total Bilirubin 0.3 mg/dL (0.15-1.2)
[2024-04-14 13:59] LABS: Lipase 159 U/L (13-60); Magnesium 2.2 mg/dL (1.7-2.3)
[2024-04-14 14:04] LABS: Carbon Dioxide 5 mmol/L (22-29)
[2024-04-14 14:07] LABS: Troponin(5th) Baseline 115 ng/L (0-10)
[2024-04-14] MEDS: SODIUM CHLORIDE 0.9% 1469.64 ML IV (14:12)
[2024-04-14] MEDS: sodium bicarbonate 150 MEQ in dextrose 5% 250 ML 1000 MEQ IV (14:25)
[2024-04-14 14:26] LABS: Blood Urea Nitrogen 200 mg/dL (8-23); Osmolality Calculated 353 mOsm/kg (285-295)
[2024-04-14 14:34] LABS: Creatine Phosphokinase 126 U/L (26-192)
[2024-04-14] MEDS: calcium chloride 10% Syr 10 mL 1 GM IVP (14:34)
[2024-04-14] MEDS: insulin regular-human 100 units/1 mL 7 UNIT IVP (14:36)
--- NOTE | 2024-04-14 14:38 | CTR_ITS ---
PROCEDURE INFORMATION: Exam: CT Chest Without Contrast; Diagnostic Exam date and time: 04/14/2024 11:51 PM Age: 73 years old Clinical indication: Other: Weight loss, arf; Additional info: Weigth loss, acute renal failure, leukocuytosis TECHNIQUE: Imaging protocol: Diagnostic computed tomography of the chest without contrast. Radiation optimization: All CT scans at this facility use at least one of these dose optimization techniques: automated exposure control; mA and/or kV adjustment per patient size (includes targeted exams where dose is matched to clinical indication); or iterative reconstruction. COMPARISON: CR (CHEST, ) 04/14/2024 8:08 PM RADIATION DOSE METRICS: Total DLP (mGy-cm): 505.35 FINDINGS: Limitations: Breathing artifact limits evaluation. Lungs: Severe emphysematous change. Moderate bibasilar atelectasis versus fibrotic changes. Suggested superimposed airspace opacities in the right posterior lower lobe may represent focal pneumonitis/pneumonia. 9 mm left anterior upper lobe pulmonary nodule (image 17, series 5). 12 mm posterior left upper lobe pulmonary nodule (image 15, series 5) Pleural spaces: Questionable trace right pleural effusion. No definitive pleural effusion. No pneumothorax. Heart: Mild cardiomegaly. No pericardial effusion or pericardial thickening. Coronary arteries: Severe coronary artery calcification. Lymph nodes: No enlarged lymph nodes are identified. Vasculature: Atherosclerotic calcifications of the aorta are present. No aneurysm is identified. Bones/joints: No acute osseous abnormalities are seen. Soft tissues: The soft tissues are within normal limits. COMMENTS: 1. Consider non-emergent PET/CT or tissue sampling.(Reference: Eula) 2. The presence of pulmonary emphysema on CT is an independent risk factor for lung cancer. In the absence of a history or active diagnosis of lung cancer, it is recommended that this patient with emphysema be evaluated for enrollment in a low dose CT lung cancer screening program. REFERENCES: Eula Powell, et al. Guidelines for Management of Incidental Pulmonary Nodules Detected on CT Images: From the Fleischner Society 2017. Radiology. 2017;284(1):228-243. PROCEDURE INFORMATION: Exam: CT Abdomen And Pelvis Without Contrast Exam date and time: 04/14/2024 11:51 PM Age: 73 years old Clinical indication: Other: Weight loss, arf; Additional info: Weigth loss, acute renal failure, leukocuytosis TECHNIQUE: Imaging protocol: Computed tomography of the abdomen and pelvis without contrast. Radiation optimization: All CT scans at this facility use at least one of these dose optimization techniques: automated exposure control; mA and/or kV adjustment per patient size (includes targeted exams where dose is matched to clinical indication); or iterative reconstruction. COMPARISON: CT abdomen pelvis wo con [id number] 02/26/2022 2:39 PM RADIATION DOSE METRICS: Total DLP (mGy-cm): 505.35 FINDINGS: Limitations: Breathing artifact limits evaluation of the upper abdomen. Tubes, catheters and devices: Right femoral venous catheter. Liver: The liver is normal. No hepatic masses are identified. Gallbladder and biliary ducts: The gallbladder is normal. There is no ductal dilatation. Pancreas: The pancreas is normal. Spleen: The spleen is normal. Adrenal glands: The adrenal glands are normal. Kidneys and ureters: No renal calcifications are identified. There is no hydronephrosis. Stomach and bowel: Mild colonic diverticulosis without diverticulitis. There is no large or small bowel obstruction. There is no evidence of bowel wall thickening. Appendix: A normal appendix is not identified. There is no secondary evidence of acute appendicitis. Intraperitoneal space: No inflammatory changes are identified. There is no free fluid or fluid collection seen. There is no pneumoperitoneum. Vasculature: Atherosclerotic calcifications of the aorta are present. No aneurysm is identified. Lymph nodes: No enlarged lymph nodes are identified. Urinary bladder: The bladder is decompressed and contains a Maldonado catheter. Reproductive: The uterus is absent. Bones/joints: Status post right hip arthroplasty. No acute osseous abnormalities are seen. Soft tissues: The soft tissues are within normal limits. CT/[place] [id number] IMPRESSION: 1. Bibasilar fibrotic changes with suggested superimposed right basilar pneumonia or pneumonitis. 2. Two left upper lobe nodules, the larger measuring up 12 mm. See comments section for Fleischner follow-up recommendations. 3. Other nonemergent findings above. IMPRESSION: 1. No acute intra-abdominal or pelvic process. 2. Other nonemergent findings above.
--- NOTE | 2024-04-14 14:55 | ECG_ITS ---
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 Measurements Intervals Merrill Rate: 122 P: 94 ID: [id number] QRS: 75 QRSD: 84 T: 80 QT: 319 QTc: 455 Interpretive Statements SINUS TACHYCARDIA LOW QRS VOLTAGE IN EXTREMITY LEADS [QRS DEFLECTION < 0.5 mV IN LIMB LEADS] ABNORMAL RHYTHM ECG Compared to ECG 04/14/2024 13:07:43 Low QRS voltage now present First degree AV block no longer present Electronically Signed On 04-14-2024 21:39:18 CDT by Diamond Reeves M.D. [id number]
[2024-04-14 15:00] LABS: Lactic Sepsis W/Reflex 1.2 mmol/L (0.5-2.2)
[2024-04-14] MEDS: albuterol 2.5 mg/3 mL Neb 10 MG INHALATION (15:01)
--- NOTE | 2024-04-14 15:07 | PM.CONSULT ---
Providers/Reason For Consult Consulting Physician/Specialty*: courtney feliz md / telenephrology Reason for Consult*: BK, metabolic acidosis, hyperkalemia Requesting Physician: Dr Clinton Farrell Attending Physician: Clinton Farrell MD Primary Care Provider: Ariadna Cruz MD History of Present Illness History of Present Illness Darling Gonzalez is a 73 year old female Presented to the emergency room today with shortness of breath weakness confusion. The patient was found to have increased anion gap metabolic acidosis, acute kidney injury and hyperkalemia. Patient's history includes C. difficile colitis in January 2024. Mild acute kidney injury in 2023. Itching and rash on hands with recent biopsy by dermatology. In January the patient was found to be hypokalemic was discharged home on potassium and magnesium along with vancomycin. Patient is also on diuretics. The patient is on lisinopril hydrochlorothiazide and furosemide for hypertension and heart failure Past medical history is also includes COPD, myasthenia gravis, Crohn's disease hypertension hyperlipidemia, ischemic colitis. Echocardiogram from August 2024 shows an EF of 67% with grade 1 out of 4 diastolic dysfunction. History taken by the patient and his sister as the patient was weak on Saturday. Since then has not been eating and drinking. In bed significantly. Patient denies significant NSAID use. Has been having diarrhea. Poor appetite. Patient came to the emergency room today for severe weakness. Review of Systems Narrative: Confusion weakness lethargy shakes diarrhea nausea denies fevers difficulty urinating very weak. Lethargic itching cramps odd taste Medications/Allergies Home Medications Medication Instructions Recorded Confirmed Last Taken Type krill oil 500 mg capsule 500 mg PO DAILY #90 caps 11/03/20 04/14/24 04/13/24 Rx cholecalciferol (vitamin D3) 1,250 1,250 mcg PO Q30D #30 caps 08/15/23 04/14/24 02/13/24 Rx mcg (50,000 unit) capsule lisinopril 20 1 tab PO BID #180 tabs 08/15/23 04/14/24 04/13/24 Rx mg-hydrochlorothiazide 12.5 mg tablet pyridostigmine bromide 60 mg tablet 60 mg PO QID 90 days #360 tabs 08/15/23 04/14/24 04/13/24 Rx mesalamine 1.2 gram tablet,delayed 2.4 g PO BID 09/20/23 04/14/24 04/13/24 History release acetaminophen 650 mg 650 mg PO Q8H PRN pain #30 tabs 09/26/23 04/14/24 Unknown Rx tablet,extended release loperamide 2 mg tablet (Imodium 2 mg PO Q6H PRN Diarrhea 09/26/23 04/14/24 Unknown History A-D) furosemide 20 mg tablet 20 mg PO DAILY #30 tabs 12/03/23 04/14/24 04/13/24 Rx calcium carbonate 600 mg PO DAILY #30 tabs 01/28/24 04/14/24 04/13/24 Rx folic acid 1 mg tablet 1 mg PO DAILY #30 tabs 01/28/24 04/14/24 04/13/24 Rx tiotropium bromide 18 mcg capsule 1 cap inhalation DAILY #60 01/28/24 04/14/24 04/13/24 Rx with inhalation device (Spiriva inhalations with HandiHaler) atorvastatin 20 mg tablet 20 mg PO QPM 02/14/24 04/14/24 04/13/24 History magnesium oxide 400 mg (241.3 mg 400 mg PO BID #10 tabs 02/17/24 04/14/24 04/13/24 Rx magnesium) tablet potassium chloride 20 mEq 40 meq (2 x 20 mEq) PO DAILY #3 02/17/24 04/14/24 04/13/24 Rx tablet,extended tabs release(part/cryst) (Klor-Con M) betamethasone dipropionate 0.05 % 1 applic topical DAILY #45 grams 03/23/24 04/14/24 Unknown Rx topical ointment hydroxyzine HCl 25 mg tablet 25 mg PO TID PRN itching #30 tabs 04/01/24 04/14/24 Unknown Rx mometasone-formoterol HFA 200 2 puff inhalation BID 04/14/24 04/14/24 04/13/24 History mcg-5 mcg/actuation aerosol inhaler (Dulera) Allergies Allergy/AdvReac Type Severity Reaction Status Date / Time Influenza Virus Vaccines Allergy Intermediate Numbness Verified 04/08/24 13:56 niacin AdvReac Intermediate hives,itching, Verified 04/08/24 13:56 ankle swelling PFSH Acute PFSH: Medical History Enrolled in chronic care management Clostridium difficile colitis Hypotension Hypokalemia Pneumonia Sepsis COPD (chronic obstructive pulmonary disease) Vitamin D deficiency B12 deficiency Acute kidney injury Acute laryngitis Myasthenia gravis Ischemic colitis History of colon polyps Myasthenia gravis Post-menopause Hypertension Hyperlipidemia COPD (chronic obstructive pulmonary disease) Crohn's disease Surgical History Hx of colonoscopy (~2018) showed polyps which were not removed H/O oophorectomy History of hysterectomy Family History Other CAD (coronary artery disease) Social History Smoking and tobacco/nicotine status: never used tobacco/nicotine Alcohol intake: current Alcohol intake frequency: holidays/special occasions only Substance/Drug Use: never Lives independently: Yes Housing: House Current occupational status: retired 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 Vital signs noted. HEENT normocephalic atraumatic. Neck is supple Lungs are clear Heart irregular with systolic murmur. Abdomen is soft positive bowel sounds extremities have no edema. Neuro confused. Patient was seen and examined using A/V equipment and the nurse performing physical exam as a telehealth visit. Data 04/14/24 13:29 04/14/24 13:29 Micro: Microbiology 04/14/24 14:08 Blood Culture - Preliminary Blood SPECIMEN COLLECTED 04/14/24 14:04 Blood Culture - Preliminary Blood SPECIMEN COLLECTED A&P Assessment and plan (1) Acute renal failure: 73-year-old lady history of COPD, myasthenia gravis, Crohn's disease, hypertension hyperlipidemia history of C. difficile colitis, patient at home on lisinopril hydrochlorothiazide potassium magnesium and Lasix. Patient has been weak and lethargic for the last few days. 1. Please send COVID-19 test. 2. Weakness lethargy leukocytosis. Please assess for infection as per medicine. Note patient has history of C. difficile colitis. Would panculture. 3. Patient has a metabolic acidosis with respiratory compensation. Her anion gap is 32. Lactate is normal. Will send an ethyelene Glycol level though family denies she could have used any toxins such as antifreeze. Will send an osmolality also will start a bicarbonate drip. 4. Acute kidney injury most likely ATN versus prerenal azotemia. Versus ethylene glycol toxicity or other. Will check renal ultrasound, will send urine studies including protein, electrolytes and creatinine. I was asked by Dr. Dexter to provide dialysis given the fact that she has hyperkalemia increased anion gap metabolic acidosis severe tremors which are new and PVCs and their concern for arrhythmias. Surgery has been called for dialysis access. I discussed risks and benefits of hemodialysis with the patient's sister who consents. The patient's family and the patient consent to telehealth. Check labs. Will check CPK and follow along with you. Patient to go to ICU. Qualifiers: Acute renal failure type: unspecified Qualified Code(s): N17.9 - Acute kidney failure, unspecified Plan IV fluids, ethylene glycol level, check CPK, urine studies, renal ultrasound, emergent dialysis. See above. Consult Attestations Medical Necessity Statement: Acute kidney injury, increased anion gap metabolic acidosis, hyperkalemia. Time Spent in Patient Care: Greater than 35 minutes (>than 50% of time spent in counselling and/or direct pt care on unit). Coding Level of Care Code Acute Code for [facility] Diagnoses Acute renal failure, unspecified acute renal failure type N17.9 Acute renal failure type: unspecified
[2024-04-14 15:19] LABS: INR 1.21 (0.8-1.2)
[2024-04-14] MEDS: vancomycin 500 MG in sodium chloride 0.9% (plus) 100 ML 200 MG IV (15:19)
--- NOTE | 2024-04-14 15:20 | US_ITS ---
WS: [id number] RENAL ULTRASOUND HISTORY: chidi COMPARISON: None available. TECHNIQUE: 2-D and color Doppler imaging of the kidney submitted. Right kidney: 10.7 cm x 4.8 cm x 4.9 cm. Cortex: 1.7 cm Motion artifact. Patient is unable to hold her breath for this examination. No hydronephrosis or mass . Left kidney: 10.0 cm x 4.7 cm x 5.1 cm. Cortex: 1.6 cm Normal echogenicity with no hydronephrosis or mass. Aorta: Normal. Urinary Bladder: Maldonado catheter present in a nondistended bladder. US/US renal BI* [id number] IMPRESSION: Normal renal ultrasound. No renal obstruction.
[2024-04-14] MEDS: piperacillin-tazobactam 2.25 GM in sodium chloride 0.9% (plus) 50 ML IV (15:23)
--- NOTE | 2024-04-14 15:30 | P.CONIM_ITS ---
Providers/Reason For Consult 2 Consulting Physician/Specialty*: Dr. Brijesh Rios, DO/General surgery Reason for Consult*: Request for hemodialysis catheter placement Attending Physician: Clinton Farrell MD Primary Care Provider: Ariadna Cruz MD History of Present Illness History of Present Illness Darling Gonzalez is a 73 year old female who presented to the hospital with weakness and physical deconditioning. She reports that overall she does not feel well. She is shaking in the hospital bed. She denies any abdominal pain, nausea, emesis, diarrhea, constipation, hematochezia and/or melena. She was diagnosed with acute renal failure. General surgery was consulted possible hemodialysis catheter placement Review of Systems 2 General: Reports: 10 or more systems reviewed and unremarkable except in HPI and below Medications/Allergies Home Medications Medication Instructions Recorded Confirmed Last Taken Type krill oil 500 mg capsule 500 mg PO DAILY #90 caps 11/03/20 04/14/24 04/13/24 Rx cholecalciferol (vitamin D3) 1,250 1,250 mcg PO Q30D #30 caps 08/15/23 04/14/24 02/13/24 Rx mcg (50,000 unit) capsule lisinopril 20 1 tab PO BID #180 tabs 08/15/23 04/14/24 04/13/24 Rx mg-hydrochlorothiazide 12.5 mg tablet pyridostigmine bromide 60 mg tablet 60 mg PO QID 90 days #360 tabs 08/15/23 04/14/24 04/13/24 Rx mesalamine 1.2 gram tablet,delayed 2.4 g PO BID 09/20/23 04/14/24 04/13/24 History release acetaminophen 650 mg 650 mg PO Q8H PRN pain #30 tabs 09/26/23 04/14/24 Unknown Rx tablet,extended release loperamide 2 mg tablet (Imodium 2 mg PO Q6H PRN Diarrhea 09/26/23 04/14/24 Unknown History A-D) furosemide 20 mg tablet 20 mg PO DAILY #30 tabs 12/03/23 04/14/24 04/13/24 Rx calcium carbonate 600 mg PO DAILY #30 tabs 01/28/24 04/14/24 04/13/24 Rx folic acid 1 mg tablet 1 mg PO DAILY #30 tabs 01/28/24 04/14/24 04/13/24 Rx tiotropium bromide 18 mcg capsule 1 cap inhalation DAILY #60 01/28/24 04/14/24 04/13/24 Rx with inhalation device (Spiriva inhalations with HandiHaler) atorvastatin 20 mg tablet 20 mg PO QPM 02/14/24 04/14/24 04/13/24 History magnesium oxide 400 mg (241.3 mg 400 mg PO BID #10 tabs 02/17/24 04/14/24 04/13/24 Rx magnesium) tablet potassium chloride 20 mEq 40 meq (2 x 20 mEq) PO DAILY #3 02/17/24 04/14/24 04/13/24 Rx tablet,extended tabs release(part/cryst) (Klor-Con M) betamethasone dipropionate 0.05 % 1 applic topical DAILY #45 grams 03/23/24 04/14/24 Unknown Rx topical ointment hydroxyzine HCl 25 mg tablet 25 mg PO TID PRN itching #30 tabs 04/01/24 04/14/24 Unknown Rx mometasone-formoterol HFA 200 2 puff inhalation BID 04/14/24 04/14/24 04/13/24 History mcg-5 mcg/actuation aerosol inhaler (Dulera) Allergies Allergy/AdvReac Type Severity Reaction Status Date / Time Influenza Virus Vaccines Allergy Intermediate Numbness Verified 04/08/24 13:56 niacin AdvReac Intermediate hives,itching, Verified 04/08/24 13:56 ankle swelling Current Medications Generic Name Dose Route Start Last Admin Trade Name Freq PRN Reason Stop Dose Admin Heparin Sodium (Porcine) 5,000 unit 04/14/24 17:45 04/15/24 16:54 Heparin 5,000 Unit/Ml Inj 1 Ml SUBCUT 5,000 unit Q12H VANGIE Administration Sodium Bicarbonate 150 meq/ 1,150 mls @ 100 mls/hr 04/14/24 14:45 04/16/24 04:10 Dextrose IV 100 mls/hr .[id number] VANGIE Administration Norepinephrine Bitartrate 4 mg in 250 mls @ 0 mls/hr 04/14/24 16:32 04/16/24 03:08 Levophed IV 2 mcg/min .Q0M VANGIE 7.5 mls/hr Titration Protocol Per Protocol Piperacillin Sod/Tazobactam 50 mls @ 12.5 mls/hr 04/15/24 03:30 04/16/24 03:21 Sod 3.375 gm/ Sodium Chloride IV 12.5 mls/hr Q12H VANGIE Administration Insulin Human Lispro 0 unit 04/14/24 21:30 04/16/24 07:56 Insulin Lispro 100 Unit/1 Ml SUBCUT 4 unit WM&BEDTIME VANGIE Administration Protocol Lanolin 1 applic 04/15/24 17:05 04/15/24 17:09 Lanolin Oint 7 Gm TOPICAL 1 applic PRN PRN Administration DRYNESS Morphine Sulfate 2 mg 04/14/24 16:32 04/14/24 22:21 Morphine 4 Mg/Ml Sdv 1 Ml IVP 2 mg Q4H PRN Administration SEVERE PAIN Pantoprazole Sodium 40 mg 04/16/24 09:00 04/16/24 07:56 Pantoprazole 40 Mg Sdv IVP 40 mg BID VANGIE Administration Pyridostigmine [place] 60 mg 04/14/24 17:00 04/16/24 08:00 Pyridostigmine 60 Mg Tablet PO 60 mg QID VANGIE Administration PFSH Acute 2 PFSH: Medical History Sepsis Enrolled in chronic care management Clostridium difficile colitis Hypotension Hypokalemia Pneumonia COPD (chronic obstructive pulmonary disease) Vitamin D deficiency B12 deficiency Acute kidney injury Acute laryngitis Myasthenia gravis Ischemic colitis History of colon polyps Myasthenia gravis Post-menopause Hypertension Hyperlipidemia COPD (chronic obstructive pulmonary disease) Crohn's disease Surgical History Hx of colonoscopy (~2017) showed polyps which were not removed H/O oophorectomy History of hysterectomy Family History Other CAD (coronary artery disease) Social History Smoking and tobacco/nicotine status: never used tobacco/nicotine Alcohol intake: current Alcohol intake frequency: holidays/special occasions only Substance/Drug Use: never Lives independently: Yes Housing: House Current occupational status: retired 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 Current gender identity: Female Vitals/I&O/Wt Last Vital Signs Temp 98.2 F 04/16/24 05:45 Pulse 70 04/16/24 08:00 Resp 15 04/16/24 08:00 BP 86/47 04/16/24 08:00 Pulse Ox 98 04/16/24 08:00 O2 Del Method Nasal Cannula 04/16/24 05:45 O2 Flow Rate 2 04/16/24 05:45 04/15/24 04/16/24 04/16/24 22:59 06:59 14:59 Intake Total 1807.792 / 7518.218 2056.00 / 3157.792 Output Total 3089 / 3089 450 / 3539 Balance -1281.208 / -1231.208 850.00 / -381.208 Weight last 48 hrs Weight 102 lb 8 oz Weight 108 lb 7.479 oz Weight 102 lb 5 oz Weight 108 lb Weight 108 lb Physical Exam 2 Narrative: General : Patient is well developed , no acute distress, oriented x3 Head : Normal cephalic, a-traumatic. Ears : Pinnae and external canal are normal. Hearing is normal. Eyes : PERRLA, Sclera and injection are normal. No conjunctival discharge. Nose : Mucous membranes are without erythema. Throat : buccal mucosa is normal, gums are without significant recession or hypertrophy. Lungs : Equal chest rise bilaterally, no use of accessory muscles, trachea is midline. Cor : Rate and rhythm are normal. Abdomen : Soft, ND, NT, no g/r/m Extremities : No edema, no cyanosis or clubbing, dorsalis pedis pulses are present bilaterally, non-tender to palpation of calves. Upper extremities are normal bilaterally. Back : non-tender to palpation, no CVA tenderness. Neuro : CN II - XII intact, Upper and lower extremities have equal and full strength Urinary Catheter Management: Maldonado: Cath Placed During This Visit: yes Reason for Continuing Indwelling Catheter: Accurate Measurement of Urinary Output in Critically Ill Patients Urinary Catheter Date of Insertion: 04/14/24 Urinary Catheter Time of Insertion: 15:29 Data 04/16/24 05:30 04/16/24 05:30 Micro: Microbiology 04/14/24 15:27 Urine Culture - Final Urine,Clean Catch 04/15/24 22:02 Occult Blood (FIT) - Final Stool Routine Collection 04/14/24 14:08 Blood Culture - Preliminary Blood NEGATIVE TO DATE 07/16/24 14:04 Blood Culture - Preliminary Blood NEGATIVE TO DATE A&P Assessment and plan (1) Acute renal failure: Qualifiers: Acute renal failure type: unspecified Qualified Code(s): N17.9 - Acute kidney failure, unspecified Plan She went into ventricular tachycardia while in the ER and urgent temporary hemodialysis catheter placement was requested. Temporary hemodialysis catheter placement The risks and benefits of the procedure, including but not limited to, bleeding, infection, infection requiring Mediport removal antibiotic therapy and repeat surgery, damage to surrounding structures, scar, numbness, pain, were explained to the patient. He/She is understanding of the risks and wishes to proceed. Coding Level of Care Code 67731 Diagnoses Acute renal failure, unspecified acute renal failure type N17.9 Acute renal failure type: unspecified
--- NOTE | 2024-04-14 15:40 | P.PCN_ITS ---
Procedure Note: Procedure: Preoperative diagnosis: Acute renal failure requiring emergent dialysis Postoperative diagnosis: Same Procedure: Placement of Mahurkar catheter in the right femoral vein Surgeon: Dr. Brijesh Rios, DO Anesthesia: Local Description of procedure: The patient's right groin was prepped and draped in a sterile manner. 5 mL of 1% lidocaine was infiltrated at the site of planned entry, an introducer needle was used to access the right femoral vein. Guidewire was passed through the introducer needle and the introducer needle was removed. Serial dilators were passed over the guidewire after the skin incision was extended using 11 blade and Mahurkar catheter was then passed over the marcia dewire and the guidewire was removed. The catheter was sutured to the skin using 2-0 Ethilon suture. Sterile dressings were applied. Coding Level of Care Code Acute Code for [facility]
--- NOTE | 2024-04-14 15:43 | P.HP_ITS ---
Providers/Chief Complaint 2 Admitting Physician: Clinton Farrell MD Primary Care Provider: Ariadna Cruz MD Chief Complaint: SOB History of Present Illness Darling Gonzalez is a 73 year old female with a past medical history of COPD, myasthenia gravis, Crohn's disease, hypertension, hyperlipidemia, history of C. difficile who presents [facility] for fatigue, malaise, shortness of breath. Patient presents with sister, she tells me that about on Saturday, patient had spent a prolonged period of time in her car, she thinks she might of developed a heatstroke. But she never came to the emergency room, over the weekend she continued to have fatigue, malaise, complaints of shortness of breath, poor appetite. She does use Lasix, and lisinopril/hydrochlorothiazide however is not using more than prescribed ? BUN of 200, creatinine over 13, pH of 7.05, bicarb of 5, anion gap 30.4, blood sugar 133, troponin 115, potassium 6.4, EKG showing peaked T waves ? In the emergency room she received insulin, D50, calcium chloride, receiving IV fluids, sodium bicarb -She is alert, awake, tachypneic, tachycardic, normotensive, on room air, hypothermic -Spoke to ER provider, concerns for hyperkalemia, metabolic acidosis, acute renal failure, ? Spoke to nephrology, for concerns for electrolyte abnormalities with acute renal failure, plan on trial of fluid therapy with repeat BMP to decide if she would need dialysis ? Patient is receiving fluid therapy, sodium bicarb ? Patient in the ER was reexamined, patient had developed of ventricular arrhythmia, and looks like V-fib on the prior note, she is alert, awake, normotensive, tachycardic heart rates in the 110s, alert to person, to place, not to time, does report feeling unwell ? Given patient's developing ventricular arrhythmia, metabolic acidosis, acute renal failure, hyperkalemia she has received all medical therapy for hyperkalemia including calcium gluconate, sodium bicarb, insulin, D50, albuterol decision was made to proceed with dialysis ? Spoke to patient and sister at bedside about urgent need for dialysis, patient's status is critical, prognosis is guarded, dialysis would help correct electrolyte abnormalities, correct hyperkalemia, currently what is life- threatening is her developing ventricular arrhythmias with her acute renal failure, metabolic acidosis, and hyperkalemia resistant to medical therapy ? After discussing with them the risk and benefits of urgent dialysis, they voiced understanding, all question answered, shared decision making, agreed to proceed ? Discussed goals of care patient is a full code ? Spoke to ER provider plan for urgent dialysis, agreeable to proceed ? Spoke to general surgery, plan urgent dialysis catheter placements, agreed to hold to proceed ? Spoke to nephrology about patient's critical status, developing ventricular arrhythmias plan on urgent dialysis, ? Patient received dialysis catheter, seen in the intensive care unit, femoral dialysis catheter has been placed -she is hypotensive, will give 1 amp bicarb, will give 1L normal saline -Reexamined, patient MAP is consistently below 65, will start her on Levophed, concern for septic shock, with UTI, pneumonia, order for PICC line placed, CT chest abdomen pelvis without contrast, continue bicarbonate drip, vancomycin, Zosyn ordered Review of Systems 2 Const: Reports: fatigue and malaise Card: Denies: chest pain Resp: Denies: dyspnea GI: Denies: abdominal pain Musc: Denies: back pain Neuro: Denies: headache(s) Medications/Allergies Home Medications Medication Instructions Recorded Confirmed Last Taken Type krill oil 500 mg capsule 500 mg PO DAILY #90 caps 11/03/20 04/14/24 04/13/24 Rx cholecalciferol (vitamin D3) 1,250 1,250 mcg PO Q30D #30 caps 08/15/23 04/14/24 02/13/24 Rx mcg (50,000 unit) capsule lisinopril 20 1 tab PO BID #180 tabs 08/15/23 04/14/24 04/13/24 Rx mg-hydrochlorothiazide 12.5 mg tablet pyridostigmine bromide 60 mg tablet 60 mg PO QID 90 days #360 tabs 08/15/23 04/14/24 04/13/24 Rx mesalamine 1.2 gram tablet,delayed 2.4 g PO BID 09/20/23 04/14/24 04/13/24 History release acetaminophen 650 mg 650 mg PO Q8H PRN pain #30 tabs 09/26/23 04/14/24 Unknown Rx tablet,extended release loperamide 2 mg tablet (Imodium 2 mg PO Q6H PRN Diarrhea 09/26/23 04/14/24 Unknown History A-D) furosemide 20 mg tablet 20 mg PO DAILY #30 tabs 12/03/23 04/14/24 04/13/24 Rx calcium carbonate 600 mg PO DAILY #30 tabs 01/28/24 04/14/24 04/13/24 Rx folic acid 1 mg tablet 1 mg PO DAILY #30 tabs 01/28/24 04/14/24 04/13/24 Rx tiotropium bromide 18 mcg capsule 1 cap inhalation DAILY #60 01/28/24 04/14/24 04/13/24 Rx with inhalation device (Spiriva inhalations with HandiHaler) atorvastatin 20 mg tablet 20 mg PO QPM 02/14/24 04/14/24 04/13/24 History magnesium oxide 400 mg (241.3 mg 400 mg PO BID #10 tabs 02/17/24 04/14/24 04/13/24 Rx magnesium) tablet potassium chloride 20 mEq 40 meq (2 x 20 mEq) PO DAILY #3 02/17/24 04/14/24 04/13/24 Rx tablet,extended tabs release(part/cryst) (Klor-Con M) betamethasone dipropionate 0.05 % 1 applic topical DAILY #45 grams 03/23/24 04/14/24 Unknown Rx topical ointment hydroxyzine HCl 25 mg tablet 25 mg PO TID PRN itching #30 tabs 04/01/24 04/14/24 Unknown Rx mometasone-formoterol HFA 200 2 puff inhalation BID 04/14/24 04/14/24 04/13/24 History mcg-5 mcg/actuation aerosol inhaler (Dulera) Allergies Allergy/AdvReac Type Severity Reaction Status Date / Time Influenza Virus Vaccines Allergy Intermediate Numbness Verified 04/08/24 13:56 niacin AdvReac Intermediate hives,itching, Verified 04/08/24 13:56 ankle swelling PFSH Acute 2 PFSH: Medical History (Updated 04/14/24 @ 17:34 by Clinton Farrell MD) Sepsis Enrolled in chronic care management Clostridium difficile colitis Hypotension Hypokalemia Pneumonia COPD (chronic obstructive pulmonary disease) Vitamin D deficiency B12 deficiency Acute kidney injury Acute laryngitis Myasthenia gravis Ischemic colitis History of colon polyps Myasthenia gravis Post-menopause Hypertension Hyperlipidemia COPD (chronic obstructive pulmonary disease) Crohn's disease Surgical History Hx of colonoscopy (~2018) showed polyps which were not removed H/O oophorectomy History of hysterectomy Family History Other CAD (coronary artery disease) Social History Smoking and tobacco/nicotine status: never used tobacco/nicotine Alcohol intake: current Alcohol intake frequency: holidays/special occasions only Substance/Drug Use: never Lives independently: Yes Housing: House Current occupational status: retired Previous occupational history: 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 Current gender identity: Female Vitals/I&O/Wt Last Vital Signs Temp 95.6 F L 04/14/24 13:16 Pulse 128 H 04/14/24 15:36 Resp 24 H 04/14/24 14:57 BP 109/64 04/14/24 15:00 Pulse Ox 100 04/14/24 15:00 O2 Del Method Room Air 04/14/24 15:00 04/14/24 04/14/24 04/14/24 06:59 14:59 22:59 Intake Total 400 / 400 Balance 400 / 400 Weight last 48 hrs Weight 48.988 kg Physical Exam 2 Const: COMMON NORMALS: no acute distress and patient oriented x3 HENMT: COMMON NORMALS: normocephalic HEAD & SCALP: normocephalic Eye: COMMON NORMALS: Equal, round and reactive pupils present and EOMs intact bilaterally Neck/C-Spine: COMMON NORMALS: no JVD Lymph: LYMPHATIC: no lymphadenopathy noted Resp: COMMON NORMALS: normal respiratory effort, No retractions, No use of accessory muscles and clear to auscultation bilaterally AUSCULTATION: wheezes Cardio: COMMON NORMALS: regular rate, regular rhythm, S1 normal heart sound present and S2 normal heart sound present RHYTHM: regular rhythm HEART SOUNDS: S1 normal heart sound present and S2 normal heart sound present GI: COMMON NORMALS: Normal to inspection, nondistended, normoactive bowel sounds present, Soft to palpation and non-tender Extremity: COMMON NORMALS: no pedal edema Neuro: COMMON NORMALS: patient oriented x3, CN's II-XII intact bilaterally, moves all extremities and no focal motor deficits Psych: COMMON NORMALS: mental status grossly normal Urinary Catheter Management: Maldonado: Cath Placed During This Visit: yes Urinary Catheter Date of Insertion: 04/14/24 Urinary Catheter Time of Insertion: 15:29 Sepsis: Is patient septic: Yes Focused sepsis exam performed: Yes F ocused sepsis exam: DPT pulses diminished bilaterally, no significant mottling, cool bilateral lower extremities, cap refill greater than 2 seconds, pulses palpable, but diminished, 2+, Date exam was performed: 04/14/24 Time exam was performed: 16:00 Data 04/14/24 13:29 04/14/24 15:46 Micro: Microbiology 04/14/24 14:08 Blood Culture - Preliminary Blood SPECIMEN COLLECTED 04/14/24 14:04 Blood Culture - Preliminary Blood SPECIMEN COLLECTED A&P Assessment and plan (1) Acute renal failure: Qualifiers: Acute renal failure type: unspecified Qualified Code(s): N17.9 - Acute kidney failure, unspecified (2) Acute metabolic acidosis: (3) Hyperkalemia: (4) Leukocytosis: (5) NSTEMI (non-ST elevated myocardial infarction): (6) Urinary tract infection: (7) Low BMI: (8) Sepsis: (9) Pneumonia: (10) Shock: Plan Acute renal failure -etiology unclear ? Perhaps of dehydration, a combination of Lasix, and her home blood pressure medications ? Does have evidence of UTI, CT abdomen pelvis ordered ? Serum ketones are positive, could be starvation ketosis her BMI is 18, awaiting her A1c below blood sugars are reasonable, last A1c was 5.3 ? Could be dehydration, -She is status post fluid therapy, sodium bicarb therapy in the emergency room ? Plan on emergent dialysis, has dialysis catheter in place, he is hypotensive, might require Levophed ? Order placed for PICC line ? Levophed to maintain MAP in 65 Hyperkalemia -EKG showing peaked T waves -Status post calcium chloride, insulin, D50, fluids, bicarb Receiving urgent dialysis Metabolic acidosis Likely sec to acute renal failure ? Awaiting lactic acid -Getting dialysis ?continue bicarb drip Acute metabolic acidosis, increased anion gap -Ketones positive -Blood sugar within normal limits -Suspect starvation ketosis Leukocytosis ? Does have atelectasis in bilateral lung bases ? Has evidence of UTI, ? Lactic acid 1.2 ? CRP, Pro-Sonia pending -UA shows evidence of UTI, has received Zosyn continue Zosyn ? Given atelectasis findings on chest x-ray or leukocytosis, will start patient on vancomycin and Zosyn for concerns for pneumonia Low BMI, physical deconditioning, protein sonia malnutrition -Etiology unclear -Reports weight loss -CT chest abdomen pelvis Shock -Likely secondary to acute renal failure, dehydration, sepsis from pneumonia and UTI -Continue vancomycin, Zosyn -PICC line to be placed -Receiving IV fluids Sepsis -Secondary pneumonia, UTI -CT chest abdomen pelvis ordered -Lactic acid within normal limits NSTEMI serial EKG, serial troponin, telemetry monitoring ? Cardiac echocardiogram Full code SCDs for DVT prophylaxis, heparin Protonix for GI prophylaxis Status critical, prognosis guarded Attestations 2 Medical Necessity Statement*: Patient requires hospitalization, inpatient, greater than 2 midnights, for acute renal failure, metabolic acidosis, hyperkalemia, starvation ketosis, sepsis, septic shock, pneumonia, UTI, shock, Coding Level of Care Code Critical Care >/= 30 minutes Critical care time (in minutes): 45 The high probability of a clinically significant, sudden or life threatening deterioration, as referenced in this documentation, required my full and direct attention, intervention and personal management. The critical care time shown is in addition to time spent performing any reported separately billable procedures and includes the following: [x] Data and vital sign review and interpretation [x ] Patient assessment, examination and intervention [x] Medication orders and management [x] Patient/Family updates as able [x] Care Coordination and Documentation. Diagnoses Acute renal failure, unspecified acute renal failure type N17.9 Acute renal failure type: unspecified Acute metabolic acidosis E87.21 Hyperkalemia E87.5 Leukocytosis D72.829 NSTEMI (non-ST elevated myocardial infarction) I21.4 Urinary tract infection N39.0 Low BMI Sepsis A41.9 Pneumonia J18.9 Shock R57.9
[2024-04-14 15:49] LABS: Urine Color Dark Yellow (Yellow)
[2024-04-14 15:50] LABS: Add Urine Microscopic? YES; Bilirubin Urine Neg (Negative); Blood Urine 2+ (Negative); Glucose Urine UA Norm (Normal); Ketones Urine 1+ (Negative); Leukocyte Esterase Urine 2+ (Negative); Nitrate Urine Negative (Negative); Protein Urine 3+ (Negative); Specific Gravity, Urine 1.015 (1.005-1.030); Urine Appearance Cloudy (CLEAR); Urobilinogen Urine Norm (Negative); pH Urine 5 (5-7)
[2024-04-14 15:59] LABS: Potassium, Radom Urine 32 mmol/L; Urine Creatinine 114 mg/dL (28-217); Urine Random Chloride 61 mmol/L; Urine Random Sodium 80 mmol/L
[2024-04-14 16:01] LABS: Add Urine Culture? Yes; Amorphous Sediment Urine TRACE /hpf; Bacteria Urine 2+ /hpf; Mucus Urine 2+ /hpf; Squamous Epithelial Cell Urine 0-4 /hpf (0-5); Transitional Epi Cells Urine 0-4 /hpf; WBC Urine 25-40 /hpf (0-5)
[2024-04-14] MEDS: lactated ringers 1,000 ML 999 ML IV (16:10)
[2024-04-14] MEDS: sodium chloride 0.9% 1,000 ML 999 ML IV (16:30)
[2024-04-14 16:37] LABS: Uric Acid 9.4 mg/dL (2.4-5.7)
[2024-04-14] MEDS: sodium bicarbonate 8.4% 1 mEq/mL 50mL Syr 50 MEQ IVP (16:37)
[2024-04-14 16:46] LABS: Ketone (Acetest) Serum Positive (Negative)
[2024-04-14 16:47] LABS: Anion Gap 34.3 (5-19); C Reactive Protein 72.4 mg/L (0.0-4.9); Calcium 9.3 mg/dL (8.5-10.5); Chloride 108 mmol/L (98-107); Creatine Phosphokinase 104 U/L (26-192); Creatinine Clr Calc Pharmacy 3.4548; Glucose 147 mg/dL (65-115); Magnesium 1.9 mg/dL (1.7-2.3); NT Pro B Type Natriuretic Pept 9780 pg/mL (0-125); Potassium 4.3 mmol/L (3.5-5.1); Sodium 146 mmol/L (136-145)
[2024-04-14 16:49] LABS: Troponin 5 2HR 92.79 ng/L (0-10)
[2024-04-14 16:51] LABS: Troponin 5 2HR Delta -22.21 ABS# (0-10)
[2024-04-14 16:57] LABS: Acetaminophen < 5.0 ug/mL (10-30); Osmolality Calculated 363 mOsm/kg (285-295); Salicylate < 0.3 mg/dL (3-10)
[2024-04-14 16:58] LABS: Carbon Dioxide 8 mmol/L (22-29)
[2024-04-14 16:59] LABS: Blood Urea Nitrogen 177 mg/dL (8-23); Phosphorus 9.2 mg/dL (2.5-4.5)
[2024-04-14] MEDS: norepinephrine 4 MG/250 ML BAG 15 MG IV (17:08)
[2024-04-14 17:09] LABS: Thyroid Stimulating Hormone 4.73 uIU/mL (0.27-4.20)
[2024-04-14 17:12] LABS: ABG PCO2 22.4 mmHg (35-45); ABG PH Result 7.24 (7.35-7.45); Alveolar-Arterial Oxygen Gradi 7.2 mmHg (5-10); Arterial Blood Gas Hematocrit 27.7 % (37-47); Base Excess ABG -16.1 mmol/L (-2.0-2.0); Blood Gas Allen Test Pos; Blood Gas Sample Type Arterial; HCO3 ABG 9.7 mmol/L (22-26); HGB O2 Sat 90.4 % (95-100); Ionized Calcium Level - ABG 1.2 mmol/L (1.1-1.4); Methemoglobin 0.6 % (0.4-1.5); PO2 ABG 64.3 mmHg (80.0-100.0)
[2024-04-14] MEDS: sodium bicarbonate 150 MEQ in dextrose 5% 1,000 ML 100 MEQ IV (17:27)
[2024-04-14 17:35] LABS: Blood Gas Operator Identificat GD
[2024-04-14 17:37] LABS: Oxygen Device RA
[2024-04-14] MEDS: heparin 5,000 unit/mL INJ 1 mL 5000 UNIT SUBCUT (17:47)
[2024-04-14] MEDS: morphine 4 mg/mL SDV 1 mL 2 MG IVP ×2 (17:53→22:21)
[2024-04-14] MEDS: pantoprazole 40 mg SDV IVP (17:55)
[2024-04-14] MEDS: pyridostigmine 60 mg Tablet PO (17:56)
[2024-04-14 18:08] LABS: Adenovirus Not Detected (NOT DETECT); Chlamydia Pneumoniae Not Detected (NOT DETECT); Coronavirus 229E,HKU1,NL63,OC4 Not Detected (NOT DETECT); Human Metapneumovirus Not Detected (NOT DETECT); Human Rhinovirus/Enterovirus Not Detected (NOT DETECT); Influenza A Not Detected (NOT DETECT); Influenza A H1 Not Detected (NOT DETECT); Influenza A H1-2009 Not Detected (NOT DETECT); Influenza A H3 Not Detected (NOT DETECT); Influenza B Not Detected (NOT DETECT); Mycoplasma Pneumoniae Not Detected (NOT DETECT); Parainfluenza Virus Type 1 Not Detected (NOT DETECT); Parainfluenza Virus Type 2 Not Detected (NOT DETECT); Parainfluenza Virus Type 3 Not Detected (NOT DETECT); Parainfluenza Virus Type 4 Not Detected (NOT DETECT); Respiratory Syncytial Virus A Not Detected (NOT DETECT); Respiratory Syncytial Virus B Not Detected (NOT DETECT); SARS-COV-2 Not Detected (NOT DETECT)
[2024-04-14 18:10] LABS: Glucose Point of Care 158 mg/dL (70-110)
[2024-04-14 18:22] LABS: Blood Gas Sample Site LR
[2024-04-14 18:51] LABS: Eosinophil Urine Eosinophils Seen; Urine Eosinophil Count 1 (0-0)
--- NOTE | 2024-04-14 19:06 | ECG_ITS ---
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 Measurements Intervals [place] Rate: 126 P: 82 MD: 195 QRS: 62 QRSD: 84 T: 86 QT: 393 QTc: 570 Interpretive Statements SINUS TACHYCARDIA WITH OCCASIONAL ECTOPIC PREMATURE COMPLEXES ABNORMAL RHYTHM ECG Compared to ECG 04/14/2024 14:55:59 No significant changes Electronically Signed On 04-14-2024 21:39:55 CDT by Diamond Reeves M.D. [id number]
--- NOTE | 2024-04-14 19:24 | XRR_ITS ---
PROCEDURE INFORMATION: Exam: XR Chest Exam date and time: 04/14/2024 8:08 PM Age: 73 years old Clinical indication: Device placement; Picc; Additional info: Post picc insertion, dimitry placing in icu 8. Should be ready at 2014 TECHNIQUE: Imaging protocol: Radiologic exam of the chest. Views: 1 view. COMPARISON: CR XR chest 1V portable [id number] 04/14/2024 1:38 PM FINDINGS: Tubes, catheters and devices: New right upper extremity PICC with the distal tip in the region of the cavoatrial junction. Lungs: Newly apparent basilar opacities appear to reflect patient's overlying left upper extremity. Lung bases are not well assessed.. Pleural spaces: No pleural effusion or pneumothorax. Heart/Mediastinum: Unremarkable. No cardiomegaly. Bones/joints: No acute osseous abnormalities are seen. XR/XR chest 1V portable [id number] IMPRESSION: New right upper extremity PICC with the distal tip in the region of the cavoatrial junction.
--- NOTE | 2024-04-14 19:35 | USCV_ITS ---
Carlos Darling Age: 73 Gender: F : 1950 Exam Date: 04/14/2024 21:15 Ordering Phys: Clinton Farrell MD Technologist: TAN [place]am [place] [facility] [place]: NSTEMI . History of COPD. Patient is coughing heavily and appears to be in considerable discomfort. Nurse states that she believes patient is suffering from pulmonary edema. No pain meds are ordered for this patient. Patient is non- communicative. BP: 102 / 58 HR: 112 Rhythm: Sinus Technical Quality: Adequate MEASUREMENTS (Male / Female) Normal Values 2D ECHO LV Diastolic Diameter PLAX 2.9 cm 4.2 - 5.9 / 3.9 - 5.3 cm IVS Diastolic Thickness 1.3 cm 0.6 - 1.0 / 0.6 - 0.9 cm IVS Systolic Thickness 1.3 cm LVPW Diastolic Thickness 0.9 cm 0.6 - 1.0 / 0.6 - 0.9 cm LVPW Systolic Thickness 1.3 cm LVOT Diameter 1.7 cm LV Ejection Fraction 2D Teich 73.3 % LV Ejection Fraction MOD 4C 64.2 % LV Ejection Fraction MOD 2C 67.7 % LV Ejection Fraction 2C AL 68.7 % LA Diameter 1.5 cm Aorta at Sinotubular Diameter 2.8 cm IVC Diameter 1.6 cm M-MODE LA Ao Ratio MM 1.2 AV Cusp Separation MM 1.5 cm DOPPLER AV Peak Velocity 133.0 cm/s LVOT Peak Velocity 120.0 cm/s AV Area Cont Eq vti 2.0 cm squared AV Area Cont Eq pk 2.0 cm squared MV Peak Velocity 186.0 cm/s MV Area PHT 3.4 cm squared Mitral E to A Ratio 1.1 TV Peak Velocity 379.5 cm/s TR Peak Velocity 385.0 cm/s TR Peak Gradient 59.3 mmHg TV Peak E Velocity 86.0 cm/s Right Atrial Pressure 3.0 mmHg Pulmonary Artery Systolic Pressu 62.3 mmHg PV Peak Velocity 136.0 cm/s FINDINGS Left Ventricle Normal left ventricular size, systolic function and wall thickness, with no regional wall motion abnormalities. Grade II/IV diastolic dysfunction, moderately elevated filling pressures. Left ventricular ejection fraction is estimated at 65 %. Right Ventricle Normal right ventricular size and systolic function, RVSP 62.3 mmHg. Moderate pulmonary hypertension, RVSP 62.3 mmHg. Right Atrium The right atrium is normal in size. Left Atrium The left atrium is normal in size. Mitral Valve Structurally normal mitral valve without significant stenosis or prolapse. There is no mitral regurgitation. Aortic Valve Structurally normal aortic valve without significant sclerosis or stenosis. There is no aortic regurgitation. Tricuspid Valve Structurally normal tricuspid valve. Mild tricuspid valve regurgitation. Pulmonic Valve Pulmonic valve not well visualized. Pericardium Normal pericardium without effusion. Aorta Normal ascending aorta dimension. IVC The inferior vena cava appears normal. CONCLUSIONS Normal left ventricular size, systolic function and wall thickness, with no regional wall motion abnormalities. Grade II/IV diastolic dysfunction, moderately elevated filling pressures. Left ventricular ejection fraction is estimated at 65 %. Normal right ventricular size and systolic function, RVSP 62.3 mmHg. Moderate pulmonary hypertension, RVSP 62.3 mmHg. Previous echo was in August 2023. There is no change with the exception of the pulmonary artery pressure. Previously the pulmonary artery pressure was measured at 14 mmHg. Clinical correlation recommended. Dr. Deangelo Pope MD (Electronically Signed) Final Date: 15 April 2024 08:44 S
[2024-04-14 20:21] LABS: Troponin 5 6HR 93.28 ng/L (0-10)
[2024-04-14 20:28] LABS: Troponin 5 6HR Delta -21.72 ng/L (0-12)
--- NOTE | 2024-04-14 20:38 | PICC.NOTE ---
Triple lumen PICC placed to right basilic vein. Referred to vascular access nurse for PICC placement due to sepsis and use of vasopressors. Informed consent obtained by ICU staff prior to vascular access nurse arrival. Right arm assessed with right basilic vein measuring 3.8 mm, straight, and apparent best choice for placement. Using sterile technique and MST, right baslic vein accessed x 1 stick. Mid-arm circumference measured 10 cm from right AC 25 cm. Trimmed cath 36 cm with 0 cm external length noted. CXR shows tip in cavoatrial junction, in good position for use per radiologist. Line secured with stat-lock. Insertion site covered with Biopatch and TSM. Report given to bedside nurse, LAURA Hdez.
[2024-04-14 21:04] LABS: Estmated Average Glucose 120; Hemoglobin A1C 5.8 % (4.0-6.0)
--- NOTE | 2024-04-14 21:19 | PC.NURSE ---
Aspiration risk: Patient was coughing after attempts to take oral meds. Dr. Farias was contacted and gave telephone orders to hold PO meds.
[2024-04-14 21:31] LABS: Hepatitis B Surface Antigen Non-Reactive (Nonreactive)
[2024-04-14 21:35] LABS: Glucose Point of Care 243 mg/dL (70-110)
[2024-04-14] MEDS: insulin lispro 100 unit/1 mL SUBCUT (21:36)
[2024-04-14 21:43] LABS: Complement C3 110 mg/dL (90-180)
[2024-04-14 21:48] LABS: Alanine Aminotransferase 9 U/L (0-33); Albumin Level 3.2 g/dL (3.5-5.2); Alkaline Phosphatase 80 U/L (35-105); Aspartate Amino Transferase 18 U/L (0-32); Blood Urea Nitrogen 75 mg/dL (8-23); Calcium 8.3 mg/dL (8.5-10.5); Carbon Dioxide 13 mmol/L (22-29); Chloride 100 mmol/L (98-107); Creatinine Clr Calc Pharmacy 6.9654; Globulin 3.2 g/dL (1.3-4.6); Glucose 229 mg/dL (65-115); Osmolality Calculated 326 mOsm/kg (285-295); Sodium 143 mmol/L (136-145); Total Bilirubin 0.6 mg/dL (0.15-1.2); Total Protein 6.4 g/dL (6.6-8.7)
[2024-04-14 21:55] LABS: Anion Gap 33.4 (5-19); Potassium 3.4 mmol/L (3.5-5.1)
--- NOTE | 2024-04-14 22:41 | PC.NURSE ---
Sliding Scale Order: Patient's blood sugar was 243, Dr. Farias was contacted and gave telephone orders to begin a low dose insulin sliding scale ACHS.
[2024-04-14 23:24] LABS: Hepatitis C Virus Antibody Non-Reactive (Nonreactive)
[2024-04-15] VITALS (62 sets, daily range): BP systolic 70–132; BP diastolic 42–77; PULSE 70–113; RESP 9–23; TEMP 36.7–37.1; O2SAT 94–100; BMI 17.0
[2024-04-15 00:53] LABS: Hepatitis B Surface AB < 3.5 (11.5-1000)
--- NOTE | 2024-04-15 01:32 | ECG_ITS ---
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 Measurements Intervals [place] Rate: 95 P: 77 [place]: 205 QRS: 45 QRSD: 94 T: 91 QT: 371 QTc: 468 Interpretive Statements SINUS RHYTHM LOW QRS VOLTAGE IN EXTREMITY LEADS [QRS DEFLECTION < 0.5 mV IN LIMB LEADS] SEPTAL MYOCARDIAL INFARCTION , OF INDETERMINATE AGE [40+ ms Q WAVE IN V1/V2] Compared to ECG 04/14/2024 18:40:59 Low QRS voltage now present Myocardial infarct finding now present Sinus tachycardia no longer present Electronically Signed On 04-15-2024 16:44:49 CDT by Deangelo Pope M.D. [id number]
[2024-04-15] MEDS: piperacillin-tazobactam 3.375 GM in sodium chloride 0.9% (plus) 50 ML IV ×2 (03:22→14:41)
[2024-04-15 04:13] LABS: Basophils % 0.1 %; Eosinophils # 0.1 10^3/uL (0.0-0.8); Eosinophils % 0.5 %; Hematocrit 23.8 % (36-47); Lymphocytes # 0.4 10^3/uL (0.8-4.8); Lymphocytes % 2.5 %; Mean Corpuscular HGB Conc 34.9 g/dL (30-55); Mean Corpuscular Hemoglobin 30.1 pg (27-33); Mean Corpuscular Volume 86.2 fl (85-98); Mean Platelet Volume 10.4 fL (7.4-10.4); Monocytes # 0.8 10^3/uL (0.2-0.9); Monocytes % 5.1 %; Neutrophils # 14.62 10^3/uL (1.8-7.7); Neutrophils % 90.9 %; Nucleated Red Blood Cells % 0 %; Platelet Count 274 10^3/cmm (157-399); Red Blood Count 2.76 10^6/uL (3.85-5.65); Red Cell Distribution Width 14.1 % (12.1-15.1)
[2024-04-15 04:36] LABS: Alanine Aminotransferase 10 U/L (0-33); Albumin Level 2.9 g/dL (3.5-5.2); Alkaline Phosphatase 68 U/L (35-105); Anion Gap 21.9 (5-19); Aspartate Amino Transferase 20 U/L (0-32); Blood Urea Nitrogen 75 mg/dL (8-23); Calcium 7.7 mg/dL (8.5-10.5); Carbon Dioxide 22 mmol/L (22-29); Chloride 99 mmol/L (98-107); Creatinine Clr Calc Pharmacy 6.9654; Ferritin 430 ng/mL (15-150); Globulin 2.8 g/dL (1.3-4.6); Glucose 229 mg/dL (65-115); Iron 68 ug/dL (37-145); Magnesium 1.5 mg/dL (1.7-2.3); Osmolality Calculated 320 mOsm/kg (285-295); Percent Saturation 64.1 % (20-50); Phosphorus 4.1 mg/dL (2.5-4.5); Sodium 140 mmol/L (136-145); Total Bilirubin 0.4 mg/dL (0.15-1.2); Total Iron Binding Capacity 106 mcg/dl; Total Protein 5.7 g/dL (6.6-8.7); Unsaturated Iron Binding 38 ug/dL (112-347)
[2024-04-15 04:37] LABS: Calcium 7.7 mg/dL (8.5-10.5)
[2024-04-15] MEDS: norepinephrine 4 MG/250 ML BAG 7.5 MG IV (04:38)
[2024-04-15 04:43] LABS: Parathyroid Hormone 102.6 pg/mL (15-65)
[2024-04-15 04:51] LABS: 25 Hydroxy Vitamin D 15 ng/mL (30-100)
[2024-04-15 04:55] LABS: Potassium 2.9 mmol/L (3.5-5.1)
--- NOTE | 2024-04-15 05:02 | PC.NURSE ---
Hold heparin: Patient had several tarry stools through the night and hgb dropped to 8.30. Dr. Daniels was contacted and gave telephone orders to hold the SUBQ heparin
[2024-04-15] MEDS: sodium bicarbonate 150 MEQ in dextrose 5% 1,000 ML 100 MEQ IV ×2 (06:39→16:58)
[2024-04-15 07:54] LABS: Glucose Point of Care 208 mg/dL (70-110)
[2024-04-15] MEDS: insulin lispro 100 unit/1 mL SUBCUT ×3 (08:14→21:13)
--- NOTE | 2024-04-15 12:46 | P.PN_ITS ---
Subjective 2 Subjective: no new complaints Medications: Reviewed: Yes Vitals/I&O/Wt Last Vital Signs Temp 98.8 F 04/15/24 04:30 Pulse 79 04/15/24 12:00 Resp 14 04/15/24 12:00 BP 114/59 04/15/24 12:00 Pulse Ox 97 04/15/24 12:00 O2 Del Method Nasal Cannula 04/15/24 09:47 O2 Flow Rate 3 04/15/24 09:47 04/14/24 04/15/24 04/15/24 22:59 06:59 14:59 Intake Total 4129.640 / 4129.640 1290.000 / 5419.640 Output Total 0 / 0 200 / 200 Balance 4129.640 / 4129.640 1090.000 / 5219.640 Weight last 48 hrs Weight 46.408 kg Weight 48.988 kg Weight 48.988 kg Physical Exam 2 Narrative: Ill-appearing getting a breathing treatment now. Vital signs noted. HEENT normocephalic atraumatic. Neck is supple Lungs are clear Heart irregular with systolic murmur. Abdomen is soft positive bowel sounds extremities have no edema. Neuro confused. Patient was seen and examined using A/V equipment and the nurse performing physical exam as a telehealth visit. Urinary Catheter Management: Maldonado: Cath Placed During This Visit: yes Reason for Continuing Indwelling Catheter: Accurate Measurement of Urinary Output in Critically Ill Patients Urinary Catheter Date of Insertion: 04/14/24 Urinary Catheter Time of Insertion: 15:29 Data 04/15/24 03:36 04/15/24 03:36 Micro: Microbiology 04/14/24 15:27 Urine Culture - Preliminary Urine,Clean Catch 04/14/24 14:08 Blood Culture - Preliminary Blood SPECIMEN COLLECTED 04/14/24 14:04 Blood Culture - Preliminary Blood SPECIMEN COLLECTED A&P Assessment and plan (1) Acute renal failure: 73-year-old lady history of COPD, myasthenia gravis, Crohn's disease, hypertension hyperlipidemia history of C. difficile colitis, patient at home on lisinopril hydrochlorothiazide potassium magnesium and Lasix. Patient has been weak and lethargic for the last few days. 2. Rule out sepsis - Note patient has history of C. difficile colitis. Would panculture. 3. Metabolic acidosis with respiratory compensation. Her anion gap is 32. Lactate is normal. Will send an ethyelene Glycol level though family denies she could have used any toxins such as antifreeze. 4. Acute kidney injury most likely ATN versus prerenal azotemia. Versus ethylene glycol toxicity or other. Will check renal ultrasound, will send urine studies including protein, electrolytes and creatinine. I discussed risks and benefits of hemodialysis with the patient's sister who consents. HD today The patient's family and the patient consent to telehealth. Qualifiers: Acute renal failure type: unspecified Qualified Code(s): N17.9 - Acute kidney failure, unspecified Plan IV fluids, ethylene glycol level, check CPK, urine studies, renal ultrasound, emergent dialysis. See above. Attestations 2 Medical Necessity Statement*: per medicine Coding Level of Care Code Acute Code for [facility] Fwd Diagnoses Acute renal failure, unspecified acute renal failure type N17.9 Acute renal failure type: unspecified
[2024-04-15 13:14] LABS: Anti-Double Strand DNA AB 1 IU/mL
--- NOTE | 2024-04-15 14:27 | P.PN_ITS ---
Subjective 2 Subjective: Patient was seen this morning, she is alert to person, to place, not to time she follows all commands is on 2 of Levophed, she denies any choking or coughing episodes, would like to try to eat something, she feels better compared to last night, she received 1 session of emergency dialysis for her hyperkalemia, no evidence of arrhythmias overnight, she is on nasal cannula, she has normal sinus rhythm, plan on dialysis today, we discussed her CAT scan findings, her blood work this morning, we discussed eosinophils in her urine, could be interstitial nephritis, will hold off on steroids for now given her history of myasthenia gravis, in terms of her weight loss, she denies feeling down depressed or sad, denies any suicidal ideation, she tells me that she typically has her meal at the [employer] and is a fairly good meal she eats most of it, at times she does not eat her dinner Vitals/I&O/Wt Last Vital Signs Temp 98.8 F 04/15/24 04:30 Pulse 98 04/15/24 14:00 Resp 14 04/15/24 12:00 BP 114/59 04/15/24 12:00 Pulse Ox 97 04/15/24 12:00 O2 Del Method Nasal Cannula 04/15/24 09:47 O2 Flow Rate 3 04/15/24 09:47 04/14/24 04/15/24 04/15/24 22:59 06:59 14:59 Intake Total 4129.640 / 4129.640 1290.000 / 5419.640 Output Total 0 / 0 200 / 200 Balance 4129.640 / 4129.640 1090.000 / 5219.640 Weight last 48 hrs Weight 46.408 kg Weight 48.988 kg Weight 48.988 kg Physical Exam 2 Const: COMMON NORMALS: no acute distress and patient oriented x3 OTHER: Evidence of severe protein calorie malnutrition, deconditioning, bilateral temporal muscle wasting, fat pad thinning bilateral Clavicles, ribs, loss of muscle bilateral arms, thighs Resp: COMMON NORMALS: normal respiratory effort, No retractions, No use of accessory muscles and clear to auscultation bilaterally AUSCULTATION: clear to auscultation bilaterally Cardio: COMMON NORMALS: regular rate, regular rhythm, S1 normal heart sound present and S2 normal heart sound present RATE: regular rate RHYTHM: r egular rhythm HEART SOUNDS: S1 normal heart sound present and S2 normal heart sound present GI: COMMON NORMALS: Normal to inspection, nondistended, normoactive bowel sounds present and non-tender Extremity: COMMON NORMALS: no pedal edema Neuro: COMMON NORMALS: patient oriented x3 Psych: COMMON NORMALS: mental status grossly normal Urinary Catheter Management: Maldonado: Cath Placed During This Visit: yes Reason for Continuing Indwelling Catheter: Accurate Measurement of Urinary Output in Critically Ill Patients Urinary Catheter Date of Insertion: 04/14/24 Urinary Catheter Time of Insertion: 15:29 Data 04/15/24 03:36 04/15/24 03:36 Micro: Microbiology 04/14/24 15:27 Urine Culture - Preliminary Urine,Clean Catch 04/14/24 14:08 Blood Culture - Preliminary Blood SPECIMEN COLLECTED 04/14/24 14:04 Blood Culture - Preliminary Blood SPECIMEN COLLECTED A&P Assessment and plan (1) Acute renal failure: Qualifiers: Acute renal failure type: unspecified Qualified Code(s): N17.9 - Acute kidney failure, unspecified (2) Acute metabolic acidosis: (3) Hyperkalemia: (4) Leukocytosis: (5) NSTEMI (non-ST elevated myocardial infarction): (6) Urinary tract infection: (7) Low BMI: (8) Sepsis: (9) Pneumonia: (10) Shock: (11) Severe protein-calorie malnutrition: (12) Physical deconditioning: (13) Muscle wasting: (14) Starvation ketoacidosis: (15) Weight loss: Plan Acute renal failure -etiology unclear ? Perhaps of dehydration, a combination of Lasix, and her home blood pressure medications ? Does have evidence of UTI, CT abdomen pelvis no obstructive uropathy ? Serum ketones are positive, could be starvation ketosis her BMI is 17 -A1c within normal limits ? 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 Although does not have eosinophilia ? Could be dehydration, -She is status post fluid therapy, sodium bicarb therapy in the emergency room ? Plan on emergent dialysis, has dialysis catheter in place, he is hypotensive, might require Levophed ? Order placed for PICC line ? Levophed to maintain MAP in 65 Hyperkalemia, resolved -EKG showing peaked T waves -Status post calcium chloride, insulin, D50, fluids, bicarb Receiving urgent dialysis Metabolic acidosis Likely sec to acute renal failure ? Awaiting lactic acid -Getting dialysis today ?continue bicarb drip Acute metabolic acidosis, increased anion gap -Ketones positive -Blood sugar within normal limits -Suspect starvation ketosis Leukocytosis ? Does have atelectasis in bilateral lung bases ? Has evidence of UTI, ? Lactic acid 1.2 ? CRP elevated -UA shows evidence of UTI, has received Zosyn continue Zosyn ? Given atelectasis findings on chest x-ray or leukocytosis, will start patient on vancomycin and Zosyn for concerns for pneumonia Low BMI, physical deconditioning, protein sonia malnutrition -Etiology unclear -Reports weight loss Shock -Likely secondary to acute renal failure, dehydration, sepsis from pneumonia and UTI -Continue vancomycin, Zosyn -PICC line to be placed -Receiving IV fluids Sepsis -Secondary pneumonia, UTI -CT chest abdomen pelvis ordered -Lactic acid within normal limits NSTEMI serial EKG, serial troponin, telemetry monitoring ? Cardiac echocardiogram Full code SCDs for DVT prophylaxis, heparin Protonix for GI prophylaxis Status critical, prognosis guarded Attestations 2 Medical Necessity Statement*: Patient requires hospitalization for shock, remains on Levophed, sepsis secondary UTI, pneumonia, NSTEMI, acute renal failure hyperkalemia, metabolic acidosis, Diagnoses Acute renal failure, unspecified acute renal failure type N17.9 Acute renal failure type: unspecified Acute metabolic acidosis E87.21 Hyperkalemia E87.5 Leukocytosis D72.829 NSTEMI (non-ST elevated myocardial infarction) I21.4 Urinary tract infection N39.0 Low BMI Sepsis A41.9 Pneumonia J18.9 Shock R57.9 Severe protein-calorie malnutrition E43 Physical deconditioning R53.81 Muscle wasting M62.50 Starvation ketoacidosis T73.0XXA; E87.29 Weight loss R63.4
[2024-04-15 15:36] LABS: Erythrocyte Sedimentation Rate 24 mm/hr (0-15)
[2024-04-15] MEDS: heparin, porcine 1,000 unit/mL INJ 10 mL 10000 UNIT HE (15:45)
[2024-04-15 16:06] LABS: Anion Gap 19.7 (5-19); Blood Urea Nitrogen 74 mg/dL (8-23); Calcium 7.6 mg/dL (8.5-10.5); Carbon Dioxide 28 mmol/L (22-29); Chloride 97 mmol/L (98-107); Glucose 147 mg/dL (65-115); Osmolality Calculated 319 mOsm/kg (285-295); Sodium 142 mmol/L (136-145)
[2024-04-15 16:08] LABS: Potassium 2.7 mmol/L (3.5-5.1)
[2024-04-15] MEDS: pantoprazole 40 mg SDV IVP (16:54)
[2024-04-15] MEDS: pyridostigmine 60 mg Tablet PO ×2 (16:54→21:14)
[2024-04-15] MEDS: heparin 5,000 unit/mL INJ 1 mL 5000 UNIT SUBCUT (16:54)
[2024-04-15 17:09] LABS: HIV 1 & 2 Antibody Non-Reactive (Non-Reactiv); HIV 1 & 2 Antigen Non-Reactive (Non-Reactiv)
[2024-04-15] MEDS: potassium chloride ER 20 mEq Tablet 40 MEQ PO (17:09)
[2024-04-15] MEDS: lanolin oint 7 gm 1 APPLIC TOPICAL (17:09)
--- NOTE | 2024-04-15 18:09 | PC.HD ---
After 2 hours of HD, patient became symptomatic with nausea and anxiety. BP on norepinephrine dropped transiently to 48/37 (previously SBPs were 80s-90s on norepi). HR also increased, 110s-160s. Treatment terminated urgently after 2 hours. 1.9L removed of 3L goal. Guardian Family Member aware and does not wish to set up new treatment for the last hour.
[2024-04-15 21:21] LABS: Glucose Point of Care 228 mg/dL (70-110)
[2024-04-15 21:21] LABS: Glucose Point of Care 115 mg/dL (70-110)
[2024-04-15 21:24] LABS: Glucose Point of Care 154 mg/dL (70-110)
[2024-04-15 21:24] LABS: Glucose Point of Care 235 mg/dL (70-110)
--- NOTE | 2024-04-15 21:40 | PC.NURSE ---
Tarry Stool Patient noted to have tarry bowel movement. Dr. Farias notified; order received for fecal occult blood test.
[2024-04-15] MEDS: norepinephrine 4 MG/250 ML BAG 22.5 MG IV (23:47)
[2024-04-16] VITALS (94 sets, daily range): BP systolic 76–149; BP diastolic 40–90; PULSE 50–103; RESP 6–25; TEMP 36.6–36.8; O2SAT 93–100; BMI 17.0
--- NOTE | 2024-04-16 01:14 | PC.NURSE ---
Positive Fecal Occult Test Dr. Daniels notified of patient's fecal occult test being positive. Orders received to place heparin order on hold, increase protonix order to 40 mg BID IVP, and to check CBC in AM.
[2024-04-16] MEDS: piperacillin-tazobactam 3.375 GM in sodium chloride 0.9% (plus) 50 ML IV ×2 (03:21→14:55)
[2024-04-16] MEDS: sodium bicarbonate 150 MEQ in dextrose 5% 1,000 ML 100 MEQ IV ×2 (04:10→17:38)
[2024-04-16 05:43] LABS: Basophils % 0.2 %; Eosinophils % 7.8 %; Hematocrit 24.2 % (36-47); Mean Corpuscular HGB Conc 33.9 g/dL (30-55); Mean Corpuscular Hemoglobin 29.4 pg (27-33); Mean Corpuscular Volume 86.7 fl (85-98); Mean Platelet Volume 10.2 fL (7.4-10.4); Monocytes % 7.9 %; Neutrophils % 75.6 %; Nucleated Red Blood Cells % 0 %; Platelet Count 234 10^3/cmm (157-399); Red Blood Count 2.79 10^6/uL (3.85-5.65); Red Cell Distribution Width 14.2 % (12.1-15.1); White Blood Count 12.82 10^3/uL (3.29-11.43)
[2024-04-16 06:06] LABS: Alanine Aminotransferase 7 U/L (0-33); Albumin Level 2.8 g/dL (3.5-5.2); Alkaline Phosphatase 70 U/L (35-105); Anion Gap 11.2 (5-19); Aspartate Amino Transferase 18 U/L (0-32); Blood Urea Nitrogen 31 mg/dL (8-23); Calcium 7.3 mg/dL (8.5-10.5); Carbon Dioxide 36 mmol/L (22-29); Chloride 98 mmol/L (98-107); Creatinine Clr Calc Pharmacy 12.4412; Globulin 2.7 g/dL (1.3-4.6); Glucose 189 mg/dL (65-115); Magnesium 1.4 mg/dL (1.7-2.3); Osmolality Calculated 306 mOsm/kg (285-295); Phosphorus 2.5 mg/dL (2.5-4.5); Potassium 3.2 mmol/L (3.5-5.1); Sodium 142 mmol/L (136-145); Total Bilirubin 0.5 mg/dL (0.15-1.2); Total Protein 5.5 g/dL (6.6-8.7)
[2024-04-16 07:42] LABS: Glucose Point of Care 191 mg/dL (70-110)
[2024-04-16] MEDS: insulin lispro 100 unit/1 mL SUBCUT ×2 (07:56→12:11)
[2024-04-16] MEDS: pantoprazole 40 mg SDV IVP ×2 (07:56→17:02)
[2024-04-16] MEDS: pyridostigmine 60 mg Tablet PO ×4 (08:00→21:52)
[2024-04-16 08:44] LABS: Anti-Nuclear Antibody Pattern Nuclear, Homogeneous; Anti-Nuclear Antibody Screen POSITIVE (NEGATIVE)
[2024-04-16] MEDS: sucralfate 1 gm/10 mL Oral Liq UDC PO ×3 (09:38→21:52)
[2024-04-16] MEDS: potassium chloride ER 20 mEq Tablet 40 MEQ PO (09:38)
[2024-04-16] MEDS: magnesium lactate 84 mg Tablet PO (09:38)
[2024-04-16 10:00] LABS: Hematocrit 28.5 % (36-47)
[2024-04-16 10:18] LABS: INR 0.98 (0.8-1.2)
[2024-04-16 10:26] LABS: Creatinine, Random Urine 65 mg/dL (20-275); Protein, Total, Random 121 mg/dL (5-24); Protein/Creatinine Ratio 1.862 (0.024-0.184); Protein/Creatinine Ratio 1862 mg/g creat (24-184)
[2024-04-16 11:47] LABS: Glucose Point of Care 153 mg/dL (70-110)
--- NOTE | 2024-04-16 11:53 | P.CONIM_ITS ---
Providers/Reason For Consult 2 Consulting Physician/Specialty*: General Surgery Reason for Consult*: GI bleed Requesting Physician: MD Bud hospitalist Attending Physician: Clinton Farrell MD Primary Care Provider: Ariadna Cruz MD History of Present Illness History of Present Illness Darling Gonzalez is a 73 year old female who was admitted into ICU for severe dehydration and acute renal failure requiring temporary ongoing dialysis. Her creatinine in down to 3. She has noted intermittant abdominal pain in epigastric area for last few days to a week. She does not take daily aspirin or NSAID. She is on mesalamine. She does drink alcohol daily. No prior history of PUD and never had EGD done before. No fmhx of stomach cancer. She is not on PPI at home but on PPI in hospital. She had at least two black stools yesterday and one today. She was given some heparin while on dialysis machine. No history of cirrhosis as far as she knows. She has Crohn's disease amd myasthenia gravis. Review of Systems 2 Narrative: Constitutional: denies rigors, singnificant weight gain, increased appetite HEENT: denies chronic cough, blurry vision, excessive tearing, eye pain, flashing lights, odynophagia, painful mastication, change in voice, change in taste, chronic sore throat, hypersalivation Heart: denies racing heart, palpitations, othropnea, PND Lungs: denies hemoptysis, pain with deep inspiration, chronic bronchitis GI: denies hematemesis, dysphagia, tenesmus : denies polyuria, hematuria, painful micturation Musculoskeletal: denies hemarthrosis, Muscle wasting, change in amubation Neuro: denies new onset syncope, dysesthesia, dysequilibrium, ptosis eyelid or face SKin: denies new onset hyperalgia, new rash new cyanosis Endocrine: denies new polyuria, polydipsia, polyphagia, heat intolerance, excessive energy Hem/Onc: denies new petechiae, swollen glands, new excessive epstaxis Psych: denies racing thought Medications/Allergies Home Medications Medication Instructions Recorded Confirmed Last Taken Type krill oil 500 mg capsule 500 mg PO DAILY #90 caps 11/03/20 04/14/24 04/13/24 Rx cholecalciferol (vitamin D3) 1,250 1,250 mcg PO Q30D #30 caps 08/15/23 04/14/24 02/13/24 Rx mcg (50,000 unit) capsule lisinopril 20 1 tab PO BID #180 tabs 08/15/23 04/14/24 04/13/24 Rx mg-hydrochlorothiazide 12.5 mg tablet pyridostigmine bromide 60 mg tablet 60 mg PO QID 90 days #360 tabs 08/15/23 04/14/24 04/13/24 Rx mesalamine 1.2 gram tablet,delayed 2.4 g PO BID 09/20/23 04/14/24 04/13/24 History release acetaminophen 650 mg 650 mg PO Q8H PRN pain #30 tabs 09/26/23 04/14/24 Unknown Rx tablet,extended release loperamide 2 mg tablet (Imodium 2 mg PO Q6H PRN Diarrhea 09/26/23 04/14/24 Unknown History A-D) furosemide 20 mg tablet 20 mg PO DAILY #30 tabs 12/03/23 04/14/24 04/13/24 Rx calcium carbonate 600 mg PO DAILY #30 tabs 01/28/24 04/14/24 04/13/24 Rx folic acid 1 mg tablet 1 mg PO DAILY #30 tabs 01/28/24 04/14/24 04/13/24 Rx tiotropium bromide 18 mcg capsule 1 cap inhalation DAILY #60 01/28/24 04/14/24 04/13/24 Rx with inhalation device (Spiriva inhalations with HandiHaler) atorvastatin 20 mg tablet 20 mg PO QPM 02/14/24 04/14/24 04/13/24 History magnesium oxide 400 mg (241.3 mg 400 mg PO BID #10 tabs 02/17/24 04/14/24 04/13/24 Rx magnesium) tablet potassium chloride 20 mEq 40 meq (2 x 20 mEq) PO DAILY #3 02/17/24 04/14/24 04/13/24 Rx tablet,extended tabs release(part/cryst) (Klor-Con M) betamethasone dipropionate 0.05 % 1 applic topical DAILY #45 grams 03/23/24 04/14/24 Unknown Rx topical ointment hydroxyzine HCl 25 mg tablet 25 mg PO TID PRN itching #30 tabs 04/01/24 04/14/24 Unknown Rx mometasone-formoterol HFA 200 2 puff inhalation BID 04/14/24 04/14/24 04/13/24 History mcg-5 mcg/actuation aerosol inhaler (Dulera) Allergies Allergy/AdvReac Type Severity Reaction Status Date / Time Influenza Virus Vaccines Allergy Intermediate Numbness Verified 04/08/24 13:56 niacin AdvReac Intermediate hives,itching, Verified 04/08/24 13:56 ankle swelling Current Medications Generic Name Dose Route Start Last Admin Trade Name Freq PRN Reason Stop Dose Admin Heparin Sodium (Porcine) 5,000 unit 04/14/24 17:45 04/15/24 16:54 Heparin 5,000 Unit/Ml Inj 1 Ml SUBCUT 5,000 unit Q12H VANGIE Administration Sodium Bicarbonate 150 meq/ 1,150 mls @ 100 mls/hr 04/14/24 14:45 04/16/24 04:10 Dextrose IV 100 mls/hr .[id number] VANGIE Administration Norepinephrine Bitartrate 4 mg in 250 mls @ 0 mls/hr 04/14/24 16:32 04/16/24 03:08 Levophed IV 2 mcg/min .Q0M VANGIE 7.5 mls/hr Titration Protocol Per Protocol Piperacillin Sod/Tazobactam 50 mls @ 12.5 mls/hr 04/15/24 03:30 04/16/24 03:21 Sod 3.375 gm/ Sodium Chloride IV 12.5 mls/hr Q12H VANGIE Administration Insulin Human Lispro 0 unit 04/14/24 21:30 04/16/24 07:56 Insulin Lispro 100 Unit/1 Ml SUBCUT 4 unit WM&BEDTIME VANGIE Administration Protocol Lanolin 1 applic 04/15/24 17:05 04/15/24 17:09 Lanolin Oint 7 Gm TOPICAL 1 applic PRN PRN Administration DRYNESS Magnesium Lactate 84 mg 04/16/24 09:00 04/16/24 09:38 Magnesium Lactate 84 Mg Tablet PO 84 mg BID VANGIE Administration Morphine Sulfate 2 mg 04/14/24 16:32 04/14/24 22:21 Morphine 4 Mg/Ml Sdv 1 Ml IVP 2 mg Q4H PRN Administration SEVERE PAIN Pantoprazole Sodium 40 mg 04/16/24 09:00 04/16/24 07:56 Pantoprazole 40 Mg Sdv IVP 40 mg BID VANGIE Administration Pyridostigmine [place] 60 mg 04/14/24 17:00 04/16/24 08:00 Pyridostigmine 60 Mg Tablet PO 60 mg QID VANGIE Administration Sucralfate 1 gm 04/16/24 09:00 04/16/24 09:38 Sucralfate 1 Gm/10 Ml Oral Liq Udc PO 1 gm Q6H VANGIE Administration PFSH Acute 2 PFSH: Medical History Sepsis Enrolled in chronic care management Clostridium difficile colitis Hypotension Hypokalemia Pneumonia COPD (chronic obstructive pulmonary disease) Vitamin D deficiency B12 deficiency Acute kidney injury Acute laryngitis Myasthenia gravis Ischemic colitis History of colon polyps Myasthenia gravis Post-menopause Hypertension Hyperlipidemia COPD (chronic obstructive pulmonary disease) Crohn's disease Surgical History Hx of colonoscopy (~2017) showed polyps which were not removed H/O oophorectomy History of hysterectomy Family History Other CAD (coronary artery disease) Social History Smoking and tobacco/nicotine status: never used tobacco/nicotine Alcohol intake: current Alcohol intake frequency: holidays/special occasions only Substance/Drug Use: never Lives independently: Yes Housing: House Current occupational status: retired 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 Current gender identity: Female Vitals/I&O/Wt Last Vital Signs Temp 98.2 F 04/16/24 05:45 Pulse 71 04/16/24 10:15 Resp 14 04/16/24 10:15 BP 98/60 04/16/24 10:15 Pulse Ox 100 04/16/24 10:15 O2 Del Method Nasal Cannula 04/16/24 09:17 O2 Flow Rate 2 04/16/24 09:17 04/15/24 04/16/24 04/16/24 22:59 06:59 14:59 Intake Total 1807.792 / 8669.250 4094.00 / 3157.792 Output Total 3089 / 3089 450 / 3539 Balance -1281.208 / -1231.208 850.00 / -381.208 Weight last 48 hrs Weight 102 lb 8 oz Weight 108 lb 7.479 oz Weight 102 lb 5 oz Weight 108 lb Weight 108 lb Physical Exam 2 Narrative: Patient is a well developed well nourished and in NAD and is afebrile with vitals stable and is answering questions appropriately with a normal affect and is alert and oriented x3 HEENT: normocephalic with normal external ears and nonicteric, oral mucosa moist and dentition normal for age, trachea midline with no large masses visualized Heart: RRR, no gallops murmurs or rubs, normal PMI with no thrills Lungs: normal excursions, no loud audible wheezing, no subcutaneous emphysema Abdomen: nondistended, no gross hepatosplenomegaly, no masses, no rigidity or rebound, no loud borborygmi Neuro: nonfocal, JOSE, grossly normal sensation Musculoskeletal: good muscle tone, no fasciculations, normal gait Skin: pink warm and dry with no rashes or ecchymosis Vascular: good radial pulses, no ulceration, less than 2 second capillary refill in hand : deferred Urinary Catheter Management: Maldonado: Cath Placed During This Visit: yes Reason for Continuing Indwelling Catheter: Accurate Measurement of Urinary Output in Critically Ill Patients Urinary Catheter Date of Insertion: 04/14/24 Urinary Catheter Time of Insertion: 15:29 Data 04/16/24 09:37 04/16/24 05:30 Micro: Microbiology 04/14/24 15:27 Urine Culture - Final Urine,Clean Catch 04/15/24 22:02 Occult Blood (FIT) - Final Stool Routine Collection 04/14/24 14:08 Blood Culture - Preliminary Blood NEGATIVE TO DATE 04/14/24 14:04 Blood Culture - Preliminary Blood NEGATIVE TO DATE A&P Assessment and plan (1) Melena: Plan Patient with epigastric pain and anemia and black stools. Wound plan on EGD with possible biopsy and control of bleeding. PPI as has been ordered. She needs to go home on PPI and treated for H. pylori if biopsy is positive for this. She needs to stay away from blood thinners if possible and avoid citric acid/phosphoric acid in orange juice/lemonade/grapefruit/tomato juice/sodas. Avoid excessive caffeine, spicy food, alcohol, smoking. Avoid aspirin and nonsteroidals and steroids like prednisone. It will take 6-8 weeks for an ulcer to heal and she may benefit from repeat EGD to prove ulcer is healed and not cancer. She understands risks, benefit and alternatives to EGD including aspiration, rebleeding, perforation, missed lesion, infection, cardiopulmonary problems. Coding Level of Care Code 16736 Diagnoses Melena K92.1
--- NOTE | 2024-04-16 12:28 | P.ANESASSM_ITS ---
Pre-Anesthetic Assessment Height/Weight: Height 1.65 m Weight 46.493 kg Temp Pulse Resp BP Pulse Ox O2 Del Method O2 Flow Rate 98.2 F 71 14 98/60 100 Nasal Cannula 2 04/16/24 05:45 04/16/24 10:15 04/16/24 10:15 04/16/24 10:15 04/16/24 10:15 04/16/24 09:17 04/16/24 09:17 Operation Date: 04/16/24 13:00 Proposed Procedures p EGD with biopsy and control of bleeding(Not Applicable) - Elfego Vanegas MD Familial anesthetic complications: None Was Beta Lore taken within 24 hours: N/A Was Clonidine taken within 24 hours: N/A Last intake: > 8 hrs Social No alcohol and No tobacco Exam alert, oriented x 3, clear to auscultation bilaterally and regular rate & rhythm Airway Mallampati: Class II Dentition: false Pulmonary [place] CV/HEM Hypertension and Myocardial Infarction (STEMI) Levo 1 mcg/min ARF receiving hemodialysis Metabolic malnutrition, muscle wasting Musc/skel Myasthenia gravis w/ daily pyridostigmine dose of 240 mg, 40 years duration, but states her disease is mild with little loss of strength and she denies bulbar symptoms, including difficulty swallowing Anesthetic Plan ASA status: 4 Anesthesia: MAC Risk of > 500 ml blood loss (7ml/kg in children): No Medications/Allergies Home Medications Medication Instructions Recorded Confirmed Last Taken Type krill oil 500 mg capsule 500 mg PO DAILY #90 caps 11/03/20 04/14/24 04/13/24 Rx cholecalciferol (vitamin D3) 1,250 1,250 mcg PO Q30D #30 caps 08/15/23 04/14/24 02/13/24 Rx mcg (50,000 unit) capsule lisinopril 20 1 tab PO BID #180 tabs 08/15/23 04/14/24 04/13/24 Rx mg-hydrochlorothiazide 12.5 mg tablet pyridostigmine bromide 60 mg tablet 60 mg PO QID 90 days #360 tabs 08/15/23 04/14/24 04/13/24 Rx mesalamine 1.2 gram tablet,delayed 2.4 g PO BID 09/20/23 04/14/24 04/13/24 History release acetaminophen 650 mg 650 mg PO Q8H PRN pain #30 tabs 09/26/23 04/14/24 Unknown Rx tablet,extended release loperamide 2 mg tablet (Imodium 2 mg PO Q6H PRN Diarrhea 09/26/23 04/14/24 Unknown History A-D) furosemide 20 mg tablet 20 mg PO DAILY #30 tabs 12/03/23 04/14/24 04/13/24 Rx calcium carbonate 600 mg PO DAILY #30 tabs 01/28/24 04/14/24 04/13/24 Rx folic acid 1 mg tablet 1 mg PO DAILY #30 tabs 01/28/24 04/14/24 04/13/24 Rx tiotropium bromide 18 mcg capsule 1 cap inhalation DAILY #60 01/28/24 04/14/24 04/13/24 Rx with inhalation device (Spiriva inhalations with HandiHaler) atorvastatin 20 mg tablet 20 mg PO QPM 02/14/24 04/14/24 04/13/24 History magnesium oxide 400 mg (241.3 mg 400 mg PO BID #10 tabs 02/17/24 04/14/24 04/13/24 Rx magnesium) tablet potassium chloride 20 mEq 40 meq (2 x 20 mEq) PO DAILY #3 02/17/24 04/14/24 04/13/24 Rx tablet,extended tabs release(part/cryst) (Klor-Con M) betamethasone dipropionate 0.05 % 1 applic topical DAILY #45 grams 03/23/24 04/14/24 Unknown Rx topical ointment hydroxyzine HCl 25 mg tablet 25 mg PO TID PRN itching #30 tabs 04/01/24 04/14/24 Unknown Rx mometasone-formoterol HFA 200 2 puff inhalation BID 04/14/24 04/14/24 04/13/24 History mcg-5 mcg/actuation aerosol inhaler (Dulera) Allergies Allergy/AdvReac Type Severity Reaction Status Date / Time Influenza Virus Vaccines Allergy Intermediate Numbness Verified 04/08/24 13:56 niacin AdvReac Intermediate hives,itching, Verified 04/08/24 13:56 ankle swelling Current Medications Generic Name Dose Route Start Last Admin Trade Name Freq PRN Reason Stop Dose Admin Heparin Sodium (Porcine) 5,000 unit 04/14/24 17:45 04/15/24 16:54 Heparin 5,000 Unit/Ml Inj 1 Ml SUBCUT 5,000 unit Q12H VANGIE Administration Sodium Bicarbonate 150 meq/ 1,150 mls @ 100 mls/hr 04/14/24 14:45 04/16/24 04:10 Dextrose IV 100 mls/hr .[id number] VANGIE Administration Norepinephrine Bitartrate 4 mg in 250 mls @ 0 mls/hr 04/14/24 16:32 04/16/24 03:08 Levophed IV 2 mcg/min .Q0M VANGIE 7.5 mls/hr Titration Protocol Per Protocol Piperacillin Sod/Tazobactam 50 mls @ 12.5 mls/hr 04/15/24 03:30 04/16/24 03:21 Sod 3.375 gm/ Sodium Chloride IV 12.5 mls/hr Q12H VANGIE Administration Insulin Human Lispro 0 unit 04/14/24 21:30 04/16/24 12:11 Insulin Lispro 100 Unit/1 Ml SUBCUT 2 unit WM&BEDTIME VANGIE Administration Protocol Lanolin 1 applic 04/15/24 17:05 04/15/24 17:09 Lanolin Oint 7 Gm TOPICAL 1 applic PRN PRN Administration DRYNESS Magnesium Lactate 84 mg 04/16/24 09:00 04/16/24 09:38 Magnesium Lactate 84 Mg Tablet PO 84 mg BID VANGIE Administration Morphine Sulfate 2 mg 04/14/24 16:32 04/14/24 22:21 Morphine 4 Mg/Ml Sdv 1 Ml IVP 2 mg Q4H PRN Administration SEVERE PAIN Pantoprazole Sodium 40 mg 04/16/24 09:00 04/16/24 07:56 Pantoprazole 40 Mg Sdv IVP 40 mg BID VANGIE Administration Pyridostigmine [place] 60 mg 04/14/24 17:00 04/16/24 12:11 Pyridostigmine 60 Mg Tablet PO 60 mg QID VANGIE Administration Sucralfate 1 gm 04/16/24 09:00 04/16/24 09:38 Sucralfate 1 Gm/10 Ml Oral Liq Udc PO 1 gm Q6H VANGIE Administration PFSH Anesthesia Medical History Sepsis Enrolled in chronic care management Clostridium difficile colitis Hypotension Hypokalemia Pneumonia COPD (chronic obstructive pulmonary disease) Vitamin D deficiency B12 deficiency Acute kidney injury Acute laryngitis Myasthenia gravis Ischemic colitis History of colon polyps Myasthenia gravis Post-menopause Hypertension Hyperlipidemia COPD (chronic obstructive pulmonary disease) Crohn's disease Surgical History Hx of colonoscopy (~2018) showed polyps which were not removed H/O oophorectomy History of hysterectomy Family History Other CAD (coronary artery disease) Social History Smoking and tobacco/nicotine status: never used tobacco/nicotine Alcohol intake: current Alcohol intake frequency: holidays/special occasions only Substance/Drug Use: never Lives independently: Yes Housing: House Current occupational status: retired Previous occupational history: 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 [employer] Current gender identity: Female Data Anesthesia 04/16/24 09:37 04/16/24 05:30 Short CBC 04/14/24 04/15/24 04/16/24 Range/Units 13:29 03:36 05:30 WBC 22.11 H 16.10 H 12.82 H (3.29-11.43) 10^3/uL Hgb 11.70 8.30 L 8.20 L (11.27-16.99) g/dL Hct 36.8 23.8 L D 24.2 L (36-47) % MCV 93.2 86.2 D 86.7 (85-98) fl Plt Count 395 274 D 234 (157-399) 10^3/cmm Neut % (Auto) 91.3 90.9 75.6 % Neut # (Auto) 20.19 H 14.62 H 9.70 H (1.8-7.7) 10^3/uL 04/16/24 Range/Units 09:37 WBC (3.29-11.43) 10^3/uL Hgb 9.40 L (11.27-16.99) g/dL Hct 28.5 L (36-47) % MCV (85-98) fl Plt Count (157-399) 10^3/cmm Neut % (Auto) % Neut # (Auto) (1.8-7.7) 10^3/uL BMP 04/14/24 04/14/2424 13:29 15:46 21:05 Sodium 137 146 H 143 Potassium 6.4 H 4.3 3.4 L Chloride 100 108 H 100 Carbon Dioxide 5 L* 8 L* 13 L BUN 200 H* D 177 H* 75 H Creatinine 13.9 H* 12.5 H* 6.2 H* D Glucose 133 H 147 H 229 H Calcium 8.9 9.3 8.3 L 04/15/24 04/15/24 04/16/24 03:36 15:04 05:30 Sodium 140 142 142 Potassium 2.9 L 2.7 L* 3.2 L Chloride 99 97 L 98 Carbon Dioxide 22 28 36 H BUN 75 H 74 H 31 H Creatinine 6.2 H* 5.7 H* 3.0 H Glucose 229 H 147 H 189 H Calcium 7.7 L 7.6 L 7.3 L Cardiac Enzymes 04/14/24 04/14/24 04/14/24 Range/Units 13:29 15:46 19:36 Creatine Kinase 126 104 (26-192) U/L Troponin T Baseline 115 H* (0-10) ng/L Troponin T 120 Minute 92.79 H (0-10) ng/L Delta Troponin T -22.21 L (0-10) ABS# Troponin T Hi Sens 6Hr 93.28 H (0-10) ng/L Troponin T Hi Sens 6Hr Delta -21.72 L (0-12) ng/L NT-Pro-B Natriuret Pep 9780 H (0-125) pg/mL Liver Function 04/14/24 04/14/24 04/15/24 Range/Units 13:29 21:05 03:36 Total Bilirubin 0.3 0.6 0.4 (0.15-1.2) mg/dL AST 13 18 20 (0-32) U/L ALT 9 9 10 (0-33) U/L Alkaline Phosphatase 96 80 68 (35-105) U/L Albumin 3.9 3.2 L 2.9 L (3.5-5.2) g/dL 04/16/24 Range/Units 05:30 Total Bilirubin 0.5 (0.15-1.2) mg/dL AST 18 (0-32) U/L ALT 7 (0-33) U/L Alkaline Phosphatase 70 (35-105) U/L Albumin 2.8 L (3.5-5.2) g/dL Urine 04/14/24 Range/Units 15:27 Urine Color Dark yellow A (Yellow) Urine Appearance Cloudy A (CLEAR) Urine pH 5 (5-7) Ur Specific [place] 1.015 (1.005-1.030) Urine Protein 3+ H (Negative) Urine Glucose (UA) Norm (Normal) Urine Ketones 1+ H (Negative) Urine Nitrate Negative (Negative) Urine Bilirubin Neg (Negative) Ur Leukocyte Esterase 2+ H (Negative) Urine RBC 10-15 H (0-2) /hpf Urine WBC 25-40 H (0-5) /hpf COVID Results 04/14/24 13:59 Coronavirus 229E (PCR) Not detected SARS-CoV-2 (PCR) Not detected Coags 04/14/24 04/14/24 04/15/24 13:24 15:46 03:36 ESR 24 H PT 15.70 H INR 1.21 H C-Reactive Protein 72.4 H 04/16/24 09:37 ESR PT 13.30 INR 0.98 C-Reactive Protein ABG 04/14/24 04/14/24 13:42 16:55 Specimen Type Arterial Arterial Sample Site Radial, left Lr ABG pH 7.05 L* 7.24 L ABG pCO2 17.1 L* 22.4 L ABG pO2 90.2 64.3 L ABG PO2/FiO2 Ratio 429 ABG HCO3 4.7 L 9.7 L ABG O2 Saturation 94.9 92.0 ABG Base Excess -24.1 L -16.1 L A-a O2 Gradient 4.6 L 7.2 O2 Delivery Device Room air Ra FiO2 21.0 Microbiology 04/14/24 15:27 Urine Culture - Final Urine,Clean Catch 04/15/24 22:02 Occult Blood (FIT) - Final Stool Routine Collection 04/14/24 14:08 Blood Culture - Preliminary Blood NEGATIVE TO DATE 04/14/24 14:04 Blood Culture - Preliminary Blood NEGATIVE TO DATE Cardiac Studies: 2 Echocardiogram 04/14/24
--- NOTE | 2024-04-16 12:59 | P.PN_ITS ---
Subjective 2 Subjective: Patient seen and examined. She is much more active and alert today. Hemodialysis completed yesterday and the day prior without complication Vitals/I&O/Wt Last Vital Signs Temp 98.2 F 04/16/24 05:45 Pulse 71 04/16/24 10:15 Resp 14 04/16/24 10:15 BP 98/60 04/16/24 10:15 Pulse Ox 100 04/16/24 10:15 O2 Del Method Nasal Cannula 04/16/24 09:17 O2 Flow Rate 2 04/16/24 09:17 04/15/24 04/16/24 04/16/24 22:59 06:59 14:59 Intake Total 1807.792 / 5737.178 0845.00 / 3157.792 Output Total 3089 / 3089 450 / 3539 Balance -1281.208 / -1231.208 850.00 / -381.208 Weight last 48 hrs Weight 102 lb 8 oz Weight 108 lb 7.479 oz Weight 102 lb 5 oz Weight 108 lb Weight 108 lb Physical Exam 2 Narrative: General: No acute distress, awake alert and oriented x 3 Skin: Right femoral vein catheter insertion site hemostatic without erythema or exudate Urinary Catheter Management: Maldonado: Cath Placed During This Visit: yes Reason for Continuing Indwelling Catheter: Accurate Measurement of Urinary Output in Critically Ill Patients Urinary Catheter Date of Insertion: 04/14/24 Urinary Catheter Time of Insertion: 15:29 Data 04/16/24 09:37 04/16/24 05:30 Micro: Microbiology 04/14/24 15:27 Urine Culture - Final Urine,Clean Catch 04/15/24 22:02 Occult Blood (FIT) - Final Stool Routine Collection 04/14/24 14:08 Blood Culture - Preliminary Blood NEGATIVE TO DATE 04/14/24 14:04 Blood Culture - Preliminary Blood NEGATIVE TO DATE A&P Assessment and plan (1) Acute renal failure: Qualifiers: Acute renal failure type: unspecified Qualified Code(s): N17.9 - Acute kidney failure, unspecified Plan s/p Temporary hemodialysis catheter placement Catheter may be used as needed, if she needs longer-term dialysis, I will be available next week for tunneled hemodialysis catheter placement Medical management per hospitalist Attestations 2 Medical Necessity Statement*: Per primary Coding Level of Care Code 20414 Diagnoses Acute renal failure, unspecified acute renal failure type N17.9 Acute renal failure type: unspecified
--- NOTE | 2024-04-16 13:24 | PC.NURSE ---
Off unit with GI lab
--- NOTE | 2024-04-16 14:15 | ANE.PACU2 ---
Inpatient post-anesthesia follow up: Airway intact: Yes Vital signs: Temperature 98.2 F Pulse Rate 89 Respiratory Rate 17 Blood Pressure 101/57 Pulse Oximetry 100 Oxygen Delivery Me thod Nasal Cannula Oxygen Flow Rate 2 Fraction of Inspir ed Oxygen Hydration adequate: Yes Nausea and vomiting: No Pain level: 1 Mental status: Baseline
--- NOTE | 2024-04-16 14:22 | PC.NURSE ---
Back from lab
[2024-04-16 16:17] LABS: Glucose Point of Care 88 mg/dL (70-110)
--- NOTE | 2024-04-16 16:33 | P.PN_ITS ---
Subjective 2 Subjective: - Patient was seen this morning -She is sitting up in a chair alert orie nted x 3, following all commands -She still remains on tube Levophed -Overnight and this morning she continue s to have episodes of black tarry stools, hemoglobin down to 8.2 -No nausea, no vomiting denies a history of GI bleed denies a history of NSAID use -We have started on Protonix, Carafate -Urine output overnight lackluster -Spoke to patient, family are at bedside , given her persistently Levophed requirements, black tarry stools drop in hemoglobin concerns for GI bleed, will keep her n.p.o., plan on EGD today -Placed on Protonix, Carafate I spoke to Dr. chaudhari general surgery, discussed concerns for GI bleed, plan on EGD -Patient will receive EGD today, kept n. p.o., repeat hemoglobin 9 -Seen after EGD, found to have large hia jostin hernia, esophagitis, contact bleeding from esophagitis, -Patient was seen after procedure, kristie james on p.o. Levophed alert awake, following all commands, Vitals/I&O/Wt Last Vital Signs Temp 98.2 F 04/16/24 05:45 Pulse 58 L 04/16/24 16:15 Resp 15 04/16/24 16:15 BP 140/60 04/16/24 16:15 Pulse Ox 100 04/16/24 16:15 O2 Del Method Nasal Cannula 04/16/24 09:17 O2 Flow Rate 2 04/16/24 09:17 04/16/24 04/16/24 04/16/24 06:59 14:59 22:59 Intake Total 1300.00 / 3157.792 50 / 50 Output Total 450 / 3539 Balance 850.00 / -381.208 50 / 50 Weight last 48 hrs Weight 46.493 kg Weight 49.2 kg Weight 46.408 kg Weight 48.988 kg Physical Exam 2 Const: COMMON NORMALS: no acute distress and patient oriented x3 GENERAL APPEARANCE: ill appearing and frail appearing NUTRITIONAL APPEARANCE: c achectic and thin Resp: COMMON NORMALS: normal respiratory effort, No retractions, No use of accessory muscles and clear to auscultation bilaterally AUSCULTATION: clear to auscultation bilaterally Cardio: COMMON NORMALS: regular rate, regular rhythm, S1 normal heart sound present and S2 normal heart sound present RATE: regular rate RHYTHM: r egular rhythm HEART SOUNDS: S1 normal heart sound present and S2 normal heart sound present GI: COMMON NORMALS: Normal to inspection, nondistended, normoactive bowel sounds present and non-tender Extremity: COMMON NORMALS: no calf tenderness and no pedal edema Neuro: COMMON NORMALS: patient oriented x3 Psych: COMMON NORMALS: mental status grossly normal Urinary Catheter Management: Maldonado: Cath Placed During This Visit: yes Reason for Continuing Indwelling Catheter: Accurate Measurement of Urinary Output in Critically Ill Patients Urinary Catheter Date of Insertion: 04/14/24 Urinary Catheter Time of Insertion: 15:29 Data 04/17/24 04:25 04/17/24 04:25 Micro: Microbiology 04/14/24 15:27 Urine Culture - Final Urine,Clean Catch 04/15/24 22:02 Occult Blood (FIT) - Final Stool Routine Collection 04/14/24 14:08 Blood Culture - Preliminary Blood NEGATIVE TO DATE 04/14/24 14:04 Blood Culture - Preliminary Blood NEGATIVE TO DATE A&P Assessment and plan (1) Acute renal failure: Qualifiers: Acute renal failure type: unspecified Qualified Code(s): N17.9 - Acute kidney failure, unspecified (2) Acute metabolic acidosis: (3) Hyperkalemia: (4) Leukocytosis: (5) NSTEMI (non-ST elevated myocardial infarction): (6) Urinary tract infection: (7) Low BMI: (8) Sepsis: (9) Pneumonia: (10) Shock: (11) Severe protein-calorie malnutrition: (12) Physical deconditioning: (13) Muscle wasting: (14) Starvation ketoacidosis: (15) Weight loss: (16) GI bleed: (17) Anemia: Plan Acute renal failure -etiology unclear ? Perhaps of dehydration, a combination of Lasix, and her home blood pressure medications ? Does have evidence of UTI, CT abdomen pelvis no obstructive uropathy ? Serum ketones are positive, could be starvation ketosis her BMI is 17 -A1c within normal limits ? 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 Although does not have eosinophilia ? Could be dehydration, -She is status post fluid therapy, sodium bicarb therapy in the emergency room ? Plan on emergent dialysis, has dialysis catheter in place, he is hypotensive, might require Levophed ? Order placed for PICC line ? Levophed to maintain MAP in 65 Hyperkalemia, resolved -EKG showing peaked T waves -Status post calcium chloride, insulin, D50, fluids, bicarb Receiving urgent dialysis Metabolic acidosis Likely sec to acute renal failure ? Awaiting lactic acid -Getting dialysis today ?continue bicarb drip Acute metabolic acidosis, increased anion gap -Ketones positive -Blood sugar within normal limits -Suspect starvation ketosis Leukocytosis ? Does have atelectasis in bilateral lung bases ? Has evidence of UTI, ? Lactic acid 1.2 ? CRP elevated -UA shows evidence of UTI, has received Zosyn continue Zosyn ? Given atelectasis findings on chest x-ray or leukocytosis, will start patient on vancomycin and Zosyn for concerns for pneumonia Low BMI, physical deconditioning, protein sonia malnutrition -Etiology unclear -Reports weight loss Shock, currently on 3 Levophed -Likely secondary to acute renal failure, dehydration, sepsis from pneumonia and UTI -Continue vancomycin, Zosyn -PICC line to be placed -Receiving IV fluids Sepsis -Secondary pneumonia, UTI -CT chest abdomen pelvis ordered -Lactic acid within normal limits NSTEMI serial EKG, serial troponin, telemetry monitoring ? Cardiac echocardiogram CONCLUSIONS Normal left ventricular size, systolic function and wall thickness, with no regional wall motion abnormalities. Grade II/IV diastolic dysfunction, moderately elevated filling pressures. Left ventricular ejection fraction is estimated at 65 %. Normal right ventricular size and systolic function, RVSP 62.3 mmHg. Moderate pulmonary hypertension, RVSP 62.3 mmHg. Previous echo was in August 2023. There is no change with the exception of the pulmonary artery pressure. Previously the pulmonary artery pressure was measured at 14 mmHg. Clinical correlation recommended. GI bleed Status post EGD ? Protonix ?Carafate ? Monitor hemoglobin ? Monitor hemodynamics Full code SCDs for DVT prophylaxis, heparin Protonix for GI prophylaxis Status stable, prognosis guarded Attestations 2 Medical Necessity Statement*: Patient requires hospitalization for GI bleed, EGD, shock, Levophed Coding Level of Care Code Critical Care >/= 30 minutes Critical care time (in minutes): 35 The high probability of a clinically significant, sudden or life threatening deterioration, as referenced in this documentation, required my full and direct attention, intervention and personal management. The critical care time shown is in addition to time spent performing any reported separately billable procedures and includes the following: [x] Data and vital sign review and interpretation [x ] Patient assessment, examination and intervention [x] Medication orders and management [x] Patient/Family updates as able [x] Care Coordination and Documentation. Diagnoses Acute renal failure, unspecified acute renal failure type N17.9 Acute renal failure type: unspecified Acute metabolic acidosis E87.21 Hyperkalemia E87.5 Leukocytosis D72.829 NSTEMI (non-ST elevated myocardial infarction) I21.4 Urinary tract infection N39.0 Low BMI Sepsis A41.9 Pneumonia J18.9 Shock R57.9 Severe protein-calorie malnutrition E43 Physical deconditioning R53.81 Muscle wasting M62.50 Starvation ketoacidosis T73.0XXA; E87.29 Weight loss R63.4 GI bleed K92.2 Anemia D64.9
--- NOTE | 2024-04-16 18:14 | P.PN_ITS ---
Subjective 2 Subjective: no acute issues Medications: Reviewed: Yes Vitals/I&O/Wt Last Vital Signs Temp 98.2 F 04/16/24 05:45 Pulse 75 04/16/24 17:15 Resp 14 04/16/24 17:15 BP 108/58 04/16/24 17:15 Pulse Ox 100 04/16/24 16:45 O2 Del Method Nasal Cannula 04/16/24 09:17 O2 Flow Rate 2 04/16/24 09:17 04/16/24 04/16/24 04/16/24 06:59 14:59 22:59 Intake Total 1300.00 / 3157.792 50 / 50 1350 / 1400 Output Total 450 / 3539 500 / 500 Balance 850.00 / -381.208 50 / 50 850 / 900 Weight last 48 hrs Weight 46.493 kg Weight 49.2 kg Weight 46.408 kg Weight 48.988 kg Physical Exam 2 Narrative: Ill-appearing getting a breathing treatment now. Vital signs noted. HEENT normocephalic atraumatic. Neck is supple Lungs are clear Heart irregular with systolic murmur. Abdomen is soft positive bowel sounds extremities have no edema. Neuro confused. Patient was seen and examined using A/V equipment and the nurse performing physical exam as a telehealth visit. Urinary Catheter Management: Maldonado: Cath Placed During This Visit: yes Reason for Continuing Indwelling Catheter: Accurate Measurement of Urinary Output in Critically Ill Patients Urinary Catheter Date of Insertion: 04/14/24 Urinary Catheter Time of Insertion: 15:29 Data 04/16/24 16:58 04/16/24 05:30 Micro: Microbiology 04/14/24 15:27 Urine Culture - Final Urine,Clean Catch 04/15/24 22:02 Occult Blood (FIT) - Final Stool Routine Collection 04/14/24 14:08 Blood Culture - Preliminary Blood NEGATIVE TO DATE 04/14/24 14:04 Blood Culture - Preliminary Blood NEGATIVE TO DATE A&P Assessment and plan (1) Acute renal failure: 73-year-old lady history of COPD, myasthenia gravis, Crohn's disease, hypertension hyperlipidemia history of C. difficile colitis, patient at home on lisinopril hydrochlorothiazide potassium magnesium and Lasix. Patient has been weak and lethargic for the last few days. 2. Rule out sepsis - Note patient has history of C. difficile colitis. Would panculture. 3. Metabolic acidosis with respiratory compensation. Her anion gap is 32. Lactate is normal. Will send an ethyelene Glycol level though family denies she could have used any toxins such as antifreeze. 4. Acute kidney injury most likely ATN versus prerenal azotemia. Versus ethylene glycol toxicity or other. Will check renal ultrasound, will send urine studies including protein, electrolytes and creatinine. I discussed risks and benefits of hemodialysis with the patient's sister who consents. HD done yesterday UOP better , assess for recoevery The patient's family and the patient consent to telehealth. Qualifiers: Acute renal failure type: unspecified Qualified Code(s): N17.9 - Acute kidney failure, unspecified Attestations 2 Medical Necessity Statement*: per jaclyn Coding Level of Care Code Acute Code for g Fwd Diagnoses Acute renal failure, unspecified acute renal failure type N17.9 Acute renal failure type: unspecified
[2024-04-16 22:25] LABS: Glucose Point of Care 102 mg/dL (70-110)
[2024-04-16 22:25] LABS: Amphetamines Level NEGATIVE ng/mL (<500); Barbiturates NEGATIVE ng/mL (<300); Benzodiazepines NEGATIVE ng/mL (<100); Cocaine Metabolite NEGATIVE ng/mL (<150); Marijuana Metabolite NEGATIVE ng/mL (<20); Methadone Metabolite NEGATIVE ng/mL (<100); Opiates NEGATIVE ng/mL (<100); Oxidant NEGATIVE mcg/mL (<200); Phencyclidine NEGATIVE ng/mL (<25)
[2024-04-16 23:29] LABS: Ethylene Glycol <10.0 mg/L (***)
[2024-04-17] VITALS (60 sets, daily range): BP systolic 79–140; BP diastolic 43–69; PULSE 52–100; RESP 9–26; TEMP 36.6–37.2; O2SAT 85–100
[2024-04-17] MEDS: piperacillin-tazobactam 3.375 GM in sodium chloride 0.9% (plus) 50 ML IV ×2 (04:10→15:02)
[2024-04-17] MEDS: sucralfate 1 gm/10 mL Oral Liq UDC PO ×4 (04:10→21:23)
[2024-04-17 04:18] LABS: ANCA Screen NEGATIVE (NEGATIVE)
[2024-04-17 05:17] LABS: Basophils % 0.3 %; Eosinophils # 1.6 10^3/uL (0.0-0.8); Eosinophils % 16.6 %; Hematocrit 25.8 % (36-47); Lymphocytes % 10.4 %; Mean Corpuscular HGB Conc 31.8 g/dL (30-55); Mean Corpuscular Hemoglobin 29.3 pg (27-33); Mean Corpuscular Volume 92.1 fl (85-98); Mean Platelet Volume 10.5 fL (7.4-10.4); Monocytes # 0.8 10^3/uL (0.2-0.9); Monocytes % 8.7 %; Neutrophils # 6.05 10^3/uL (1.8-7.7); Neutrophils % 63.6 %; Nucleated Red Blood Cells % 0 %; Platelet Count 216 10^3/cmm (157-399); White Blood Count 9.52 10^3/uL (3.29-11.43)
[2024-04-17 06:21] LABS: Anion Gap 16.4 (5-19); Blood Urea Nitrogen 27 mg/dL (8-23); Carbon Dioxide 37 mmol/L (22-29); Chloride 91 mmol/L (98-107); Creatinine Clr Calc Pharmacy 17.2742; Glucose 128 mg/dL (65-115); Osmolality Calculated 299 mOsm/kg (285-295); Potassium 3.4 mmol/L (3.5-5.1); Sodium 141 mmol/L (136-145)
[2024-04-17 06:22] LABS: Alanine Aminotransferase 9 U/L (0-33); Albumin Level 2.8 g/dL (3.5-5.2); Alkaline Phosphatase 67 U/L (35-105); Aspartate Amino Transferase 18 U/L (0-32); Calcium 7.1 mg/dL (8.5-10.5); Globulin 2.8 g/dL (1.3-4.6); Magnesium 1.5 mg/dL (1.7-2.3); Phosphorus 2.4 mg/dL (2.5-4.5); Total Bilirubin 0.4 mg/dL (0.15-1.2); Total Protein 5.6 g/dL (6.6-8.7)
[2024-04-17 08:02] LABS: Glucose Point of Care 111 mg/dL (70-110)
[2024-04-17] MEDS: pyridostigmine 60 mg Tablet PO ×4 (09:07→21:23)
[2024-04-17] MEDS: potassium phosphate (mEq K) 40 MEQ in sodium chloride 0.9% (100 ml) 100 ML 27.27 MEQ IV (09:07)
[2024-04-17] MEDS: pantoprazole 40 mg SDV IVP ×2 (09:07→17:00)
[2024-04-17] MEDS: magnesium sulfate premix 1 GM/100 ML PIGGYBACK IV (09:07)
--- NOTE | 2024-04-17 10:47 | PM.PN ---
Subjective Subjective: no new complaints Medications: Reviewed: Yes Vitals/I&O/Wt Last Vital Signs Temp 97.8 F 04/17/24 00:00 Pulse 92 04/17/24 10:00 Resp 19 H 04/17/24 10:00 BP 102/56 04/17/24 10:00 Pulse Ox 90 04/17/24 10:00 O2 Del Method Nasal Cannula 04/17/24 07:58 O2 Flow Rate 2 04/17/24 07:58 04/16/24 04/17/24 04/17/24 22:59 06:59 14:59 Intake Total 1450 / 1500 840 / 2340 200 / 200 Output Total 800 / 800 250 / 1050 Balance 650 / 700 590 / 1290 200 / 200 Weight last 48 hrs Weight 48.988 kg Weight 46.493 kg Weight 49.2 kg Physical Exam Narrative: Ill-appearing , Vital signs noted. HEENT normocephalic atraumatic. Neck is supple Lungs are clear Heart irregular with systolic murmur. Abdomen is soft positive bowel sounds extremities have no edema. Neuro confused. Patient was seen and examined using A/V equipment and the nurse performing physical exam as a telehealth visit. Urinary Catheter Management: Maldonado: Cath Placed During This Visit: yes Reason for Continuing Indwelling Catheter: Accurate Measurement of Urinary Output in Critically Ill Patients Urinary Catheter Date of Insertion: 04/14/24 Urinary Catheter Time of Insertion: 15:29 Data 04/17/24 04:25 04/17/24 04:25 Micro: Microbiology 04/14/24 15:27 Urine Culture - Final Urine,Clean Catch A&P Assessment and plan (1) Acute renal failure: 73-year-old lady history of COPD, myasthenia gravis, Crohn's disease, hypertension hyperlipidemia history of C. difficile colitis, patient at home on lisinopril hydrochlorothiazide potassium magnesium and Lasix. Patient has been weak and lethargic for the last few days. 2. Rule out sepsis - Note patient has history of C. difficile colitis. Would panculture. 3. Metabolic acidosis with respiratory compensation. Her anion gap is 32. Lactate is normal. Will send an ethyelene Glycol level though family denies she could have used any toxins such as antifreeze. 4. Acute kidney injury most likely ATN versus prerenal azotemia. Versus ethylene glycol toxicity or other. Will check renal ultrasound, will send urine studies including protein, electrolytes and creatinine. I discussed risks and benefits of hemodialysis with the patient's sister who consents. HD done saturday UOP better , assess for recoevery The patient's family and the patient consent to telehealth. Qualifiers: Acute renal failure type: unspecified Qualified Code(s): N17.9 - Acute kidney failure, unspecified Attestations Medical Necessity Statement*: per medicine Coding Level of Care Code Acute Code for [facility] Fwd Diagnoses Acute renal failure, unspecified acute renal failure type N17.9 Acute renal failure type: unspecified
[2024-04-17 10:55] LABS: Glucose Point of Care 153 mg/dL (70-110)
[2024-04-17] MEDS: insulin lispro 100 unit/1 mL SUBCUT (11:03)
[2024-04-17] MEDS: magnesium lactate 84 mg Tablet PO (11:03)
--- NOTE | 2024-04-17 11:37 | PC.SOCIAL ---
IMM Update pg 2 of IMM updated and reviewed w/ patient. Copy provided and copy dated, initialed and placed in chart.
[2024-04-17] MEDS: vancomycin 500 MG in sodium chloride 0.9% (plus) 100 ML 200 MG IV (15:02)
[2024-04-17 15:55] LABS: Abnormal Protein Band 1 25 mg/dL (NONE DETECTED); Albumin,Urine Random 16 %; Alpha-1-Globulins Urine Random 20 %; Alpha-2-Globulins Urine Random 24 %; Beta-Globulin,Urine Random 28 %; Gamma Globulin,Urine Random 11 %
[2024-04-17 16:37] LABS: Glucose Point of Care 111 mg/dL (70-110)
--- NOTE | 2024-04-17 16:37 | P.PN_ITS ---
Subjective 2 Subjective: Patient was seen this morning, no recurrent bloody or black stools overnight, no nausea, no vomiting, denies any fevers, no chills, is off Levophed, Vitals/I&O/Wt Last Vital Signs Temp 97.8 F 04/17/24 00:00 Pulse 82 04/17/24 16:00 Resp 19 H 04/17/24 16:00 BP 101/48 04/17/24 16:00 Pulse Ox 91 04/17/24 16:00 O2 Del Method Nasal Cannula 04/17/24 07:58 O2 Flow Rate 2 04/17/24 07:58 04/17/24 04/17/24 04/17/24 06:59 14:59 22:59 Intake Total 840 / 2340 450 / 450 Output Total 250 / 1050 Balance 590 / 1290 450 / 450 Weight last 48 hrs Weight 48.988 kg Weight 46.493 kg Weight 49.2 kg Physical Exam 2 Const: COMMON NORMALS: no acute distress ORIENTATION/CONSCIOUSNESS: Yes awake, Yes oriented to person and Yes oriented to place; not oriented to time Resp: COMMON NORMALS: normal respiratory effort, No retractions, No use of accessory muscles and clear to auscultation bilaterally AUSCULTATION: clear to auscultation bilaterally Cardio: COMMON NORMALS: regular rate, regular rhythm, S1 normal heart sound present and S2 normal heart sound present RATE: regular rate RHYTHM: r egular rhythm HEART SOUNDS: S1 normal heart sound present and S2 normal heart sound present GI: COMMON NORMALS: Normal to inspection, nondistended, normoactive bowel sounds present and non-tender Extremity: COMMON NORMALS: no clubbing, cyanosis or edema and no pedal edema Neuro: SENSORIUM/ORIENTATION: Yes oriented to person, Yes oriented to place and No oriented to time Psych: COMMON NORMALS: mental status grossly normal Urinary Catheter Management: Maldonado: Cath Placed During This Visit: yes Reason for Continuing Indwelling Catheter: Accurate Measurement of Urinary Output in Critically Ill Patients Urinary Catheter Date of Insertion: 04/14/24 Urinary Catheter Time of Insertion: 15:29 Data 04/17/24 04:25 04/17/24 04:25 A&P Assessment and plan (1) Acute renal failure: Qualifiers: Acute renal failure type: unspecified Qualified Code(s): N17.9 - Acute kidney failure, unspecified (2) Acute metabolic acidosis: (3) Hyperkalemia: (4) Leukocytosis: (5) NSTEMI (non-ST elevated myocardial infarction): (6) Urinary tract infection: (7) Low BMI: (8) Sepsis: (9) Pneumonia: (10) Shock: (11) Severe protein-calorie malnutrition: (12) Physical deconditioning: (13) Muscle wasting: (14) Starvation ketoacidosis: (15) Weight loss: (16) GI bleed: (17) Anemia: Plan Acute renal failure -etiology unclear ? Perhaps of dehydration, a combination of Lasix, and her home blood pressure medications ? Does have evidence of UTI, CT abdomen pelvis no obstructive uropathy ? Serum ketones are positive, could be starvation ketosis her BMI is 17 -A1c within normal limits ? 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 His lupus antigens are positive ? Could be dehydration, -She is status post fluid therapy, sodium bicarb therapy in the emergency room ? Plan on emergent dialysis, has dialysis catheter in place, has received dialysis no plans of future dialysis as urine output has improved ? PICC line ? Levophed to maintain MAP in 65 Hyperkalemia, resolved -EKG showing peaked T waves -Status post calcium chloride, insulin, D50, fluids, bicarb Receiving urgent dialysis Metabolic acidosis, resolving Likely sec to acute renal failure ? Awaiting lactic acid -Getting dialysis today ?continue bicarb drip Acute metabolic acidosis, increased anion gap, resolving -Ketones positive -Blood sugar within normal limits -Suspect starvation ketosis Leukocytosis ? Does have atelectasis in bilateral lung bases ? Has evidence of UTI, ? Lactic acid 1.2 ? CRP elevated -UA shows evidence of UTI, has received Zosyn continue Zosyn ? Given atelectasis findings on chest x-ray or leukocytosis, will start patient on vancomycin and Zosyn for concerns for pneumonia Low BMI, physical deconditioning, protein sonia malnutrition -Etiology unclear -Reports weight loss Shock, resolved -Likely secondary to acute renal failure, dehydration, sepsis from pneumonia and UTI -Continue vancomycin, Zosyn -PICC line to be placed -Receiving IV fluids Sepsis -Secondary pneumonia, UTI -CT chest abdomen pelvis ordered -Lactic acid within normal limits NSTEMI serial EKG, serial troponin, telemetry monitoring ? Cardiac echocardiogram CONCLUSIONS Normal left ventricular size, systolic function and wall thickness, with no regional wall motion abnormalities. Grade II/IV diastolic dysfunction, moderately elevated filling pressures. Left ventricular ejection fraction is estimated at 65 %. Normal right ventricular size and systolic function, RVSP 62.3 mmHg. Moderate pulmonary hypertension, RVSP 62.3 mmHg. Previous echo was in August 2023. There is no change with the exception of the pulmonary artery pressure. Previously the pulmonary artery pressure was measured at 14 mmHg. Clinical correlation recommended. GI bleed Status post EGD ? Protonix ?Carafate ? Monitor hemoglobin ? Monitor hemodynamics Full code SCDs for DVT prophylaxis, heparin Protonix for GI prophylaxis Status stable, prognosis guarded Attestations 2 Medical Necessity Statement*: Patient requires hospitalization for end-stage renal disease, replace electrolytes hypokalemia kalemia, hypophosphatemia, off Levophed, advance diet,'s speech therapy eval, monitor hemoglobin, urine output is improved, no need for hemodialysis Diagnoses Acute renal failure, unspecified acute renal failure type N17.9 Acute renal failure type: unspecified Acute metabolic acidosis E87.21 Hyperkalemia E87.5 Leukocytosis D72.829 NSTEMI (non-ST elevated myocardial infarction) I21.4 Urinary tract infection N39.0 Low BMI Sepsis A41.9 Pneumonia J18.9 Shock R57.9 Severe protein-calorie malnutrition E43 Physical deconditioning R53.81 Muscle wasting M62.50 Starvation ketoacidosis T73.0XXA; E87.29 Weight loss R63.4 GI bleed K92.2 Anemia D64.9
[2024-04-17] MEDS: norepinephrine 4 MG/250 ML BAG 7.5 MG IV (16:45)
--- NOTE | 2024-04-17 17:29 | P.TS_ITS ---
Transfer Summary Providers Date of Admission: 04/14/24 14:58 Date of Discharge/Transfer: 04/17/24 Attending Provider at Admission: Clinton Farrell MD Attending Provider at Transfer: Clinton Farrell MD Primary Care Provider: Ariadna Cruz MD Transfer Plans: Anticipated date of transfer: 04/17/24 . Diagnoses at Discharge Discharge Diagnosis (1) Acute renal failure: Status: Acute Qualifiers: Acute renal failure type: unspecified Qualified Code(s): N17.9 - Acute kidney failure, unspecified (2) Acute metabolic acidosis: Status: Acute (3) Hyperkalemia: Status: Acute (4) Leukocytosis: Status: Resolved (5) NSTEMI (non-ST elevated myocardial infarction): Status: Acute (6) Urinary tract infection: Status: Acute (7) Low BMI: Status: Acute (8) Sepsis: Status: Acute (9) Pneumonia: Status: Acute (10) Shock: Status: Acute (11) Severe protein-calorie malnutrition: Status: Acute (12) Physical deconditioning: Status: Acute (13) Muscle wasting: Status: Acute (14) Starvation ketoacidosis: Status: Acute (15) Weight loss: Status: Acute (16) GI bleed: Status: Acute (17) Anemia: Status: Acute Reason for Visit Reason for Visit SOB Physical Exam Urinary Catheter Management: Maldonado: Cath Placed During This Visit: yes Reason for Continuing Indwelling Catheter: Accurate Measurement of Urinary Output in Critically Ill Patients Urinary Catheter Date of Insertion: 04/14/24 Urinary Catheter Time of Insertion: 15:29 TS Data Studies Completed and Pending Pending at discharge Category Date Time Status ANCA [Anti-Neutrophil Cytoplasmic AB] Routine Lab 04/17/24 13:28 Received Anti Double Stranded DNA AB Stat Lab 04/17/24 13:28 Received Blood Culture Stat Lab 04/14/24 14:08 Results C Reactive Protein AM LABS Lab 04/18/24 04:00 Ordered C Reactive Protein AM LABS Lab 04/19/24 04:00 Ordered C Reactive Protein AM LABS Lab 04/20/24 04:00 Ordered C.Diff PCR (Lab) Stat Lab 04/17/24 16:24 Uncollected Complete Blood Count w/Auto AM LABS Lab 04/18/24 04:00 Ordered Complete Blood Count w/Auto AM LABS Lab 04/19/24 04:00 Ordered Complete Blood Count w/Auto AM LABS Lab 04/20/24 04:00 Ordered Comprehensive Metabolic Panel AM LABS Lab 04/18/24 04:00 Ordered Comprehensive Metabolic Panel AM LABS Lab 04/19/24 04:00 Ordered Comprehensive Metabolic Panel AM LABS Lab 04/20/24 04:00 Ordered Ethylene Glycol DAILY Lab 04/15/24 10:25 Received Ethylene Glycol DAILY Lab 04/16/24 09:37 Received Magnesium AM LABS Lab 04/18/24 04:00 Ordered Magnesium AM LABS Lab 04/19/24 04:00 Ordered Magnesium AM LABS Lab 04/20/24 04:00 Ordered NT Pro B Type Natriuretic Pept QAM Lab 04/18/24 06:00 Ordered NT Pro B Type Natriuretic Pept QAM Lab 04/19/24 06:00 Ordered NT Pro B Type Natriuretic Pept QAM Lab 04/20/24 06:00 Ordered Phosphorus AM LABS Lab 04/18/24 04:00 Ordered Phosphorus AM LABS Lab 04/19/24 04:00 Ordered Phosphorus AM LABS Lab 04/20/24 04:00 Ordered Procalcitonin AM LABS Lab 04/18/24 04:00 Ordered Procalcitonin AM LABS Lab 04/19/24 04:00 Ordered Procalcitonin AM LABS Lab 04/20/24 04:00 Ordered SS A Ro Sjogrens Antibody Routine Lab 04/17/24 13:28 Received SS-B/LA Antibody IGG Routine Lab 04/17/24 13:28 Received Levy Antibody Routine Lab 04/17/24 13:28 Received Pathology: Surgical [PTH] Routine Pth 04/16/24 14:09 Received Completed Studies During Hospitalization Category Date Time Status CT chest abdomen pelvis [place] [id number] Cat Scan 04/14/24 14:38 Completed ] Stat CXRP [XR chest 1V portable [id number]] Routine Exams 04/14/24 19:24 Completed XR chest 1V portable [id number] Stat Exams 04/14/24 13:05 Completed CV. echo complete* [id number] Routine Ultrasound 04/14/24 19:35 Completed US renal BI* [id number] Routine Ultrasound 04/14/24 15:20 Completed Laboratory Last Values WBC 9.52 10^3/uL (3.29-11.43) 04/17/24 04:25 RBC 2.80 10^6/uL (3.85-5.65) L 04/17/24 04:25 Hgb 8.20 g/dL (11.27-16.99) L 04/17/24 04:25 Hct 25.8 % (36-47) L 04/17/24 04:25 MCV 92.1 fl (85-98) D 04/17/24 04:25 MCH 29.3 pg (27-33) 04/17/24 04:25 MCHC 31.8 g/dL (30-55) D 04/17/24 04:25 RDW 14.0 % (12.1-15.1) 04/17/24 04:25 Plt Count 216 10^3/cmm (157-399) 04/17/24 04:25 MPV 10.5 fL (7.4-10.4) H 04/17/24 04:25 Neut % (Auto) 63.6 % 04/17/24 04:25 Lymph % (Auto) 10.4 % 04/17/24 04:25 [place] % (Auto) 8.7 % 04/17/24 04:25 Eos % (Auto) 16.6 % 04/17/24 04:25 Baso % (Auto) 0.3 % 04/17/24 04:25 Neut # (Auto) 6.05 10^3/uL (1.8-7.7) 04/17/24 04:25 Lymph # (Auto) 1.0 10^3/uL (0.8-4.8) 04/17/24 04:25 [place] # (Auto) 0.8 10^3/uL (0.2-0.9) 04/17/24 04:25 Eos # (Auto) 1.6 10^3/uL (0.0-0.8) H 04/17/24 04:25 Baso # (Auto) 0.0 10^3/uL (0.0-0.1) 04/17/24 04:25 Nucleated RBC % (auto) 0 % 04/17/24 04:25 Nucleated RBCs # 0.0 /100WBC 04/17/24 04:25 ESR 24 mm/hr (0-15) H 04/15/24 03:36 PT 13.30 SECONDS (12.1-14.9) 04/16/24 09:37 INR 0.98 (0.8-1.2) 04/16/24 09:37 Specimen Type Arterial 04/14/24 16:55 Sample Site Lr 04/14/24 16:55 ABG pH 7.24 (7.35-7.45) L 04/14/24 16:55 ABG pCO2 22.4 mmHg (35-45) L 04/14/24 16:55 ABG pO2 64.3 mmHg (80.0-100.0) L 04/14/24 16:55 ABG PO2/FiO2 Ratio 429 04/14/24 13:42 ABG HCO3 9.7 mmol/L (22-26) L 04/14/24 16:55 ABG O2 Saturation 92.0 04/14/24 16:55 ABG Base Excess -16.1 mmol/L (-2.0-2.0) L 04/14/24 16:55 Renard Test Pos 04/14/24 16:55 A-a O2 Gradient 7.2 mmHg (5-10) 04/14/24 16:55 Hematocrit 27.7 % (37-47) L 04/14/24 16:55 Hgb O2 Saturation 90.4 % (95-100) L 04/14/24 16:55 Carboxyhemoglobin 1.0 %THgb (0.4-20.1) 04/14/24 16:55 Methemoglobin 0.6 % (0.4-1.5) 04/14/24 16:55 Total Hemoglobin 9.0 g/dL (12-16) L 04/14/24 16:55 Sodium 151.0 mmol/L (131-143) H 04/14/24 16:55 Potassium 4.0 mmol/L (3.5-5.0) 04/14/24 16:55 Glucose 157.0 mg/dL (70-115) H 04/14/24 16:55 Ionized Calcium 1.2 mmol/L (1.1-1.4) 04/14/24 16:55 O2 Delivery Device Ra 04/14/24 16:55 FiO2 21.0 % 04/14/24 13:42 Bleacher Lard ID Gd 04/14/24 16:55 Sodium 141 mmol/L (136-145) 04/17/24 04:25 Potassium 3.4 mmol/L (3.5-5.1) L 04/17/24 04:25 Chloride 91 mmol/L (98-107) L 04/17/24 04:25 Carbon Dioxide 37 mmol/L (22-29) H 04/17/24 04:25 Anion Gap 16.4 (5-19) 04/17/24 04:25 BUN 27 mg/dL (8-23) H 04/17/24 04:25 Creatinine 2.5 mg/dL (0.5-0.9) H 04/17/24 04:25 GFR Calculation Not Reportable 04/17/24 04:25 Glucose 128 mg/dL (65-115) H 04/17/24 04:25 POC Glucose 111 mg/dL (70-110) H 04/17/24 16:30 Estimat Average Glucose 120 04/14/24 13:29 Hemoglobin A1c 5.8 % (4.0-6.0) 04/14/24 13:29 Specific [place] Not Reportable 04/14/24 15:27 Calculated Osmolality 299 mOsm/kg (285-295) H 04/17/24 04:25 Lactic Acid 1.2 mmol/L (0.5-2.2) 04/14/24 14:24 Uric Acid 9.4 mg/dL (2.4-5.7) H 04/14/24 15:46 Calcium 7.1 mg/dL (8.5-10.5) L 04/17/24 04:25 Phosphorus 2.4 mg/dL (2.5-4.5) L 04/17/24 04:25 Magnesium 1.5 mg/dL (1.7-2.3) L 04/17/24 04:25 Iron 68 ug/dL (37-145) 04/15/24 03:36 TIBC 106 mcg/dl 04/15/24 03:36 % Saturation 64.1 % (20-50) H 04/15/24 03:36 Unsat Iron Binding 38 ug/dL (112-347) L 04/15/24 03:36 Ferritin 430 ng/mL (15-150) H 04/15/24 03:36 Total Bilirubin 0.4 mg/dL (0.15-1.2) 04/17/24 04:25 AST 18 U/L (0-32) 04/17/24 04:25 ALT 9 U/L (0-33) 04/17/24 04:25 Alkaline Phosphatase 67 U/L (35-105) 04/17/24 04:25 Creatine Kinase 104 U/L (26-192) 04/14/24 15:46 Troponin T Baseline 115 ng/L (0-10) H* 04/14/24 13:29 Troponin T 120 Minute 92.79 ng/L (0-10) H 04/14/24 15:46 Delta Troponin T -22.21 ABS# (0-10) L 04/14/24 15:46 Troponin T Hi Sens 6Hr 93.28 ng/L (0-10) H 04/14/24 19:36 Troponin T Hi Sens 6Hr Delta -21.72 ng/L (0-12) L 04/14/24 19:36 C-Reactive Protein 72.4 mg/L (0.0-4.9) H 04/14/24 15:46 NT-Pro-B Natriuret Pep 9780 pg/mL (0-125) H 04/14/24 15:46 Total Protein 5.6 g/dL (6.6-8.7) L 04/17/24 04:25 Albumin 2.8 g/dL (3.5-5.2) L 04/17/24 04:25 Globulin 2.8 g/dL (1.3-4.6) 04/17/24 04:25 Lipase 159 U/L (13-60) H 04/14/24 13:29 25-OH Vitamin D Total 15 ng/mL (30-100) L 04/15/24 03:36 TSH 4.73 uIU/mL (0.27-4.20) H 04/14/24 13:29 PTH Intact 102.6 pg/mL (15-65) H 04/15/24 03:36 Calcium (PTH Intact) 7.7 mg/dL (8.5-10.5) L 04/15/24 03:36 Urine Color Dark yellow (Yellow) A 04/14/24 15:27 Urine Appearance Cloudy (CLEAR) A 04/14/24 15:27 Urine pH 5 (5-7) 04/14/24 15:27 Urine pH 7.0 (4.5-9.0) 04/14/24 15:27 Ur Specific [place] 1.015 (1.005-1.030) 04/14/24 15:27 Urine Protein 3+ (Negative) H 04/14/24 15:27 Urine Glucose (UA) Norm (Normal) 04/14/24 15:27 Urine Ketones 1+ (Negative) H 04/14/24 15:27 Urine Blood 2+ (Negative) H 04/14/24 15:27 Urine Nitrate Negative (Negative) 04/14/24 15:27 Urine Bilirubin Neg (Negative) 04/14/24 15:27 Urine Urobilinogen Norm mg/dL (Negative) 04/14/24 15:27 Ur Leukocyte Esterase 2+ (Negative) H 04/14/24 15:27 Urine RBC 10-15 /hpf (0-2) H 04/14/24 15:27 Urine WBC 25-40 /hpf (0-5) H 04/14/24 15:27 Ur Eosinophil Smear 1 (0-0) H 04/14/24 15:27 Ur Squamous Epith Cells 0-4 /hpf (0-5) H 04/14/24 15:27 Ur Transition Epith Cell 0-4 /hpf 04/14/24 15:27 Amorphous Sediment Trace /hpf 04/14/24 15:27 Urine Bacteria 2+ /hpf (NONE) H 04/14/24 15:27 Urine Mucus 2+ /hpf 04/14/24 15:27 Urine Eosinophils Eosinophils seen H 04/14/24 15:27 Ur Random Creatinine 65 mg/dL (20-275) 04/15/24 03:35 Ur Random Albumin 16 % 04/15/24 03:35 U Random Total Protein 121 mg/dL (5-24) H 04/15/24 03:35 Ur Random Sodium 80 mmol/L 04/14/24 15:27 Ur Random Potassium 32 mmol/L 04/14/24 15:27 Ur Random Chloride 61 mmol/L 04/14/24 15:27 Urine Creatinine 114 mg/dL (28-217) 04/14/24 15:27 Protein/Creatinin Ratio 1862 mg/g creat (24-184) H 04/15/24 03:35 Protein/Creat Ratio 24h 1.862 (0.024-0.184) H 04/15/24 03:35 U Random q-8-Weqdxcoi % 20 % 04/15/24 03:35 U Random h-5-Opemycjt % 24 % 04/15/24 03:35 U Random Beta Globulin 28 % 04/15/24 03:35 U Random Gamma Glob 11 % 04/15/24 03:35 U Abnormal Prot Band 1 25 mg/dL (NONE DETECTED) H 04/15/24 03:35 U Abnormal Prot Band 2 Not Reportable 04/15/24 03:35 U Abnormal Prot Band 3 Not Reportable 04/15/24 03:35 Urine PEP Interpret See note 04/15/24 03:35 Urine Oxidant Negative mcg/mL (<200) 04/14/24 15:27 Salicylates < 0.3 mg/dL (3-10) L 04/14/24 15:46 Urine Opiates Level Negative ng/mL (<100) 04/14/24 15:27 Urine Oxycodone Negative ng/mL (<100) 04/14/24 15:27 U Methadone Metabolites Negative ng/mL (<100) 04/14/24 15:27 Acetaminophen < 5.0 ug/mL (10-30) L 04/14/24 15:46 Barbiturates Negative ng/mL (<300) 04/14/24 15:27 Phencyclidine (PCP) Negative ng/mL (<25) 04/14/24 15:27 Amphetamines Negative ng/mL (<500) 04/14/24 15:27 Benzodiazepines Negative ng/mL (<100) 04/14/24 15:27 Cocaine Metabolite Negative ng/mL (<150) 04/14/24 15:27 U Marijuana Metabolites Negative ng/mL (<20) 04/14/24 15:27 Abn Spec Valid Drug Scn Not Reportable 04/14/24 15:27 Urine Drug Screen Note See note 04/14/24 15:27 Ur Drug Screen Comment See note 04/14/24 15:27 Ethylene Glycol <10.0 mg/L () 04/14/24 15:58 Serum Ketones Positive (Negative) H 04/14/24 13:29 MONICO Screen Positive (NEGATIVE) A 04/14/24 15:58 MONICO Titer 1:1280 titer H 04/14/24 15:58 MONICO Pattern Nuclear, homogeneous A 04/14/24 15:58 ANCA Screen Negative (NEGATIVE) 04/14/24 15:58 ANCA Titer Not Reportable 04/14/24 15:58 Anti-ds DNA IgG Ab 1 IU/mL 04/14/24 15:59 Complement C3 110 mg/dL (90-180) 04/14/24 15:46 Complement C4 30 mg/dL (10-40) 04/14/24 15:46 Adenovirus (PCR) Not detected (NOT DETECT) 04/14/24 13:59 C. pneumoniae DNA (PCR) Not detected (NOT DETECT) 04/14/24 13:59 Coronavirus 229E (PCR) Not detected (NOT DETECT) 04/14/24 13:59 Hep Bs Antigen Non-reactive (Nonreactive) 04/14/24 15:46 Hep Bs Antibody < 3.5 (11.5-1000) L 04/14/24 15:58 Hepatitis C Antibody Non-reactive (Nonreactive) 04/14/24 15:58 HIV 1&2 Ab & HIV 1 Ag Non-reactive (Non-Reactiv) 04/15/24 03:36 HIV 1&2 Antibody Non-reactive (Non-Reactiv) 04/15/24 03:36 Human Metapneumovir PCR Not detected (NOT DETECT) 04/14/24 13:59 Influenza A (H1) PCR Not detected (NOT DETECT) 04/14/24 13:59 Influ A (H1/09) PCR Not detected (NOT DETECT) 04/14/24 13:59 Influenza A (H3) PCR Not detected (NOT DETECT) 04/14/24 13:59 Influenza Type A (PCR) Not detected (NOT DETECT) 04/14/24 13:59 Influenza Type B (PCR) Not detected (NOT DETECT) 04/14/24 13:59 M. pneumoniae (PCR) Not detected (NOT DETECT) 04/14/24 13:59 Parainfluenza 1 (PCR) Not detected (NOT DETECT) 04/14/24 13:59 Parainfluenza 2 (PCR) Not detected (NOT DETECT) 04/14/24 13:59 Parainfluenza 3 (PCR) Not detected (NOT DETECT) 04/14/24 13:59 Parainfluenza 4 (PCR) Not detected (NOT DETECT) 04/14/24 13:59 RSV Type A (PCR) Not detected (NOT DETECT) 04/14/24 13:59 RSV Type B (PCR) Not detected (NOT DETECT) 04/14/24 13:59 Entero/Rhino (PCR) Not detected (NOT DETECT) 04/14/24 13:59 SARS-CoV-2 (PCR) Not detected (NOT DETECT) 04/14/24 13:59 Radiology Impressions Chest/Abdomen/Pelvis CT 04/14/24 14:38 IMPRESSION: 1. Bibasilar fibrotic changes with suggested superimposed right basilar pneumonia or pneumonitis. 2. Two left upper lobe nodules, the larger measuring up 12 mm. See comments section for [facility] follow-up recommendations. 3. Other nonemergent findings above. IMPRESSION: 1. No acute intra-abdominal or pelvic process. 2. Other nonemergent findings above. Renal Ultrasound 04/14/24 15:20 IMPRESSION: Normal renal ultrasound. No renal obstruction. Chest X-Ray 04/14/24 19:24 IMPRESSION: New right upper extremity PICC with the distal tip in the region of the cavoatrial junction. Recent Clincial Data Last Vital Signs Temp 97.8 F 04/17/24 00:00 Pulse 82 04/17/24 16:00 Resp 19 H 04/17/24 16:00 BP 101/48 04/17/24 16:00 Pulse Ox 91 04/17/24 16:00 O2 Del Method Nasal Cannula 04/17/24 07:58 O2 Flow Rate 2 04/17/24 07:58 Vital Signs Pulse Resp BP Pulse Ox O2 Del Method O2 Flow Rate 04/17/24 16:00 82 19 H 101/48 91 04/17/24 15:30 79 15 90/43 94 04/17/24 15:00 94 18 82/43 93 04/17/24 14:30 100 20 H 89/52 85 L 04/17/24 14:00 84 15 87/48 90 04/17/24 14:00 74 04/17/24 13:30 83 21 H 91/50 90 04/17/24 13:00 83 19 H 95/54 90 04/17/24 12:30 82 20 H 79/51 04/17/24 12:00 79 17 87/51 94 04/17/24 11:30 90 17 86/49 94 04/17/24 11:00 78 18 89/51 93 04/17/24 10:30 93 19 H 91/58 04/17/24 10:00 92 19 H 102/56 90 04/17/24 09:30 96 20 H 94/47 98 04/17/24 09:00 69 15 107/57 96 04/17/24 08:30 61 15 98/50 100 04/17/24 08:00 56 L 15 100/52 99 04/17/24 07:58 59 L 16 94 Nasal Cannula 2 04/17/24 07:30 58 L 16 104/54 100 04/17/24 07:00 60 14 97/51 98 04/17/24 06:00 58 L 18 99/52 99 04/17/24 05:45 59 L 25 H 99/52 100 04/17/24 05:43 58 L 04/17/24 05:30 57 L 20 H 101/54 100 Intake & Output/Weight 04/15/24 04/16/24 04/17/24 04/18/24 06:59 06:59 06:59 06:59 Intake Total 5419.640 / 5419.640 3157.792 / 3157.792 2340 / 2340 550 / 550 Output Total 200 / 200 3539 / 3539 1050 / 1050 750 / 750 Balance 5219.640 / 5219.640 -381.208 / -211.959 7424 / 1290 -200 / -200 Weight 102 lb 5 oz 102 lb 8 oz 108 lb Vitals Last Vital Signs Temp 97.8 F 04/17/24 00:00 Pulse 82 04/17/24 16:00 Resp 19 H 04/17/24 16:00 BP 101/48 04/17/24 16:00 Pulse Ox 91 04/17/24 16:00 O2 Del Method Nasal Cannula 04/17/24 07:58 O2 Flow Rate 2 04/17/24 07:58 TS Medications Medications Acetaminophen (Acetaminophen 325 Mg Tablet) 650 mg PO Q6H PRN PRN Reason: Mild/Mod Pain Or Temp >/= 101 Albuterol/Ipratropium (Ipratropium-Albuterol 3 Ml Neb) 3 ml INHALATION Q6H PRN PRN Reason: SHORTNESS OF BREATH Glucagon (Glucagon 1 Mg/Ml Kit 1 Ml) 1 mg IM ONCE PRN; Protocol PRN Reason: Adult Acute Hypoglycemia Nursing Prot. Heparin Sodium (Porcine) (Heparin 5,000 Unit/Ml Inj 1 Ml) 5,000 unit SUBCUT Q12H [facility]ANGIE Last Admin: 04/15/24 16:54 Dose: 5,000 unit Norepinephrine Bitartrate (Levophed) 4 mg in 250 mls @ 0 mls/hr IV .Q0M [facility]; Protocol Last Admin: 04/17/24 16:45 Dose: 2 mcg/min, 7.5 mls/hr Piperacillin Sod/Tazobactam (Sod 3.375 gm/ Sodium Chloride) 50 mls @ 12.5 mls/hr IV Q12H [facility] Last Admin: 04/17/24 15:02 Dose: 12.5 mls/hr Vancomycin HCl 500 mg/ Sodium (Chloride) 100 mls @ 200 mls/hr IV Q72H [facility] Last Admin: 04/17/24 15:02 Dose: 200 mls/hr Dextrose (D5w) 500 mls @ 0 mls/hr IV ONCE PRN; Protocol PRN Reason: Adult Acute Hypoglycemia Prot Dextrose (D10w) 125 mls @ 750 mls/hr IV PRN PRN; Protocol PRN Reason: Adult Acute Hypoglycemia Nursing Protocol Dextrose (D10w) 250 mls @ 1,000 mls/hr IV PRN PRN; Protocol PRN Reason: Adult Acute Hypoglycemia Nursing Protocol Sodium Chloride (Sodium Chloride 0.9%) 1,000 mls @ 0 mls/hr IV .Q0M PRN PRN Reason: hypotension or symptomatic Albumin Human (Albumin) 12.5 gm in 50 mls @ 60 mls/hr IV PRN PRN PRN Reason: Hypotension and/or symptomatic Insulin Human Lispro (Insulin Lispro 100 Unit/1 Ml) 0 unit SUBCUT WM&BEDTIME [facility]; Protocol Last Admin: 04/17/24 17:01 Dose: Not Given Lanolin (Lanolin Oint 7 Gm) 1 applic TOPICAL PRN PRN PRN Reason: DRYNESS Last Admin: 04/15/24 17:09 Dose: 1 applic Magnesium Lactate (Magnesium Lactate 84 Mg Tablet) 84 mg PO DAILY [facility] Last Admin: 04/17/24 11:03 Dose: 84 mg Morphine Sulfate (Morphine 4 Mg/Ml Sdv 1 Ml) 2 mg IVP Q4H PRN PRN Reason: SEVERE PAIN Last Admin: 04/14/24 22:21 Dose: 2 mg Naloxone HCl (Naloxone 0.4 Mg/Ml Sdv) 0.1 mg IVP Q2M PRN PRN Reason: OPIATERV Ondansetron HCl (Ondansetron 2 Mg/Ml Sdv 2 Ml) 4 mg IVP Q8H PRN PRN Reason: vomiting, or N/V if npo Pantoprazole Sodium (Pantoprazole 40 Mg Sdv) 40 mg IVP BID [facility] Last Admin: 04/17/24 17:00 Dose: 40 mg Pyridostigmine [place] (Pyridostigmine 60 Mg Tablet) 60 mg PO QID [facility] Last Admin: 04/17/24 16:44 Dose: 60 mg Sucralfate (Sucralfate 1 Gm/10 Ml Oral Liq Udc) 1 gm PO Q6H [facility] Last Admin: 04/17/24 15:02 Dose: 1 gm Discontinued Medications Albuterol Sulfate (Albuterol 2.5 Mg/3 Ml Neb) 10 mg INHALATION ONCE ONE Stop: 04/14/24 14:06 Last Admin: 04/14/24 15:01 Dose: 10 mg Calcium Chloride (Calcium Chloride 10% Syr 10 Ml) 1 gm IVP ONCE ONE Stop: 04/14/24 14:04 Last Admin: 04/14/24 14:34 Dose: 1 gm Fentanyl (Fentanyl 50 Mcg/Ml Inj 2ml) Confirm Administered Dose 100 mcg .ROUTE .STK-MED ONE Stop: 04/16/24 12:51 Heparin Sodium (Porcine) (Heparin, Porcine 1,000 Unit/Ml Inj 10 Ml) 10,000 unit INTRACATH ONCE ONE Stop: 04/15/24 09:27 Last Admin: 04/15/24 14:47 Dose: Not Given Heparin Sodium (Porcine) (Heparin, Porcine 1,000 Unit/Ml Inj 10 Ml) 1,000 unit IV ONCE ONE Stop: 04/15/24 09:27 Last Admin: 04/15/24 14:47 Dose: Not Given Heparin Sodium (Porcine) (Heparin, Porcine 1,000 Unit/Ml Inj 10 Ml) 10,000 unit HE ONCE ONE Stop: 04/15/24 15:17 Last Admin: 04/15/24 15:45 Dose: 10,000 unit Sodium Bicarbonate 150 meq/ (Dextrose) 400 mls @ 1,000 mls/hr IV .Q24M ONE Stop: 04/14/24 14:53 Last Infusion: 04/14/24 15:34 Dose: Infused Dextrose (D10w) 250 mls @ 1,000 mls/hr IV PRN PRN PRN Reason: HYPOGLYCEMIA Sodium Chloride (Sodium Chloride 0.9%) 1,469.64 mls @ 1,469.64 mls/hr 30 ml/kg infuse over 1 hr (1469.64 ml) IV .Q1H ONE Stop: 04/14/24 15:05 Last Infusion: 04/14/24 16:22 Dose: Infused Piperacillin Sod/Tazobactam (Sod 2.25 gm/ Sodium Chloride) 50 mls @ 100 mls/hr IV ONCE ONE; Protocol Stop: 04/14/24 14:59 Last Infusion: 04/14/24 16:00 Dose: Infused Vancomycin HCl 500 mg/ Sodium (Chloride) 100 mls @ 200 mls/hr IV ONCE ONE; Protocol Stop: 04/14/24 14:37 Last Infusion: 04/14/24 16:00 Dose: Infused Sodium Bicarbonate 150 meq/ (Dextrose) 1,150 mls @ 50 mls/hr IV .Q23H [facility] Last Infusion: 04/17/24 05:02 Dose: 100 mls/hr Lactated Ringer's (Lactated Ringers) 1,000 mls @ 999 mls/hr IV .Q1H1M ONE Stop: 04/14/24 16:26 Last Infusion: 04/14/24 17:38 Dose: Infused Sodium Chloride (Sodium Chloride 0.9%) 1,000 mls @ 999 mls/hr IV .Q1H1M ONE Stop: 04/14/24 17:37 Last Infusion: 04/14/24 17:38 Dose: Infused Vancomycin HCl / Sodium (Chloride) 250 mls @ 0 mls/hr [id number] PROTOCOL [facility]ANGIE; Protocol Piperacillin Sod/Tazobactam (Sod / Sodium Chloride) 50 mls @ 0 mls/hr [id number] CONT [facility]ANGIE; Protocol Lidocaine HCl (Xylocaine) Confirm Administered Dose 1 mls @ as directed .ROUTE .STK-MED ONE Stop: 04/16/24 12:50 Potassium Phosphate 40 meq/ (Sodium Chloride) 108.5106 mls @ 27.273 mls/hr IV ONCE ONE Stop: 04/17/24 12:43 Last Admin: 04/17/24 09:07 Dose: 27.27 mls/hr Magnesium Sulfate/Dextrose (Magnesium Sulfate Premix) 1 gm in 100 mls @ 200 mls/hr IV ONCE ONE Stop: 04/17/24 08:57 Last Admin: 04/17/24 09:07 Dose: 200 mls/hr Insulin Human Regular (Insulin Regular-Human 100 Units/1 Ml) 7 unit 0.15 unit/kg (7 unit) IVP ONCE ONE Stop: 04/14/24 14:06 Last Admin: 04/14/24 14:36 Dose: 7 unit Magnesium Lactate (Magnesium Lactate 84 Mg Tablet) 84 mg PO BID [facility] Last Admin: 04/16/24 09:38 Dose: 84 mg Pantoprazole Sodium (Pantoprazole 40 Mg Sdv) 40 mg IVP Q24H [facility] Last Admin: 04/15/24 16:54 Dose: 40 mg Potassium Chloride (Potassium Chloride Er 20 Meq Tablet) 40 meq PO ONCE ONE Stop: 04/15/24 17:31 Last Admin: 04/15/24 17:09 Dose: 40 meq Potassium Chloride (Potassium Chloride Er 20 Meq Tablet) 40 meq PO ONCE ONE Stop: 04/16/24 08:28 Last Admin: 04/16/24 09:38 Dose: 40 meq Propofol (Propofol 10 Mg/Ml Sdv 20 Ml) Confirm Administered Dose 200 mg .ROUTE .STK-MED ONE Stop: 04/16/24 12:50 Sodium Bicarbonate (Sodium Bicarbonate 8.4% 1 Meq/Ml 50ml Syr) 50 meq IVP ONCE ONE Stop: 04/14/24 16:32 Last Admin: 04/14/24 16:37 Dose: 50 meq Sodium Bicarbonate (Sodium Bicarbonate 8.4% 1 Meq/Ml 50ml Syr) Confirm Administered Dose 50 meq .ROUTE .STK-MED ONE Stop: 04/14/24 16:31 Last Admin: 04/14/24 17:44 Dose: Not Given Allergies Influenza Virus Vaccines Allergy (Intermediate, Verified 04/08/24 13:56) Numbness niacin Adverse Reaction (Intermediate, Verified 04/08/24 13:56) hives,itching, ankle swelling Home Medications krill oil 500 mg capsule 500 mg PO DAILY #90 caps 11/03/20 [Rx Confirmed 04/14/24] cholecalciferol (vitamin D3) 1,250 mcg (50,000 unit) capsule 1,250 mcg PO Q30D #30 caps 08/15/23 [Rx Confirmed 04/14/24] lisinopril 20 mg-hydrochlorothiazide 12.5 mg tablet 1 tab PO BID #180 tabs 08/15/23 [Rx Confirmed 04/14/24] pyridostigmine bromide 60 mg tablet 60 mg PO QID 90 days #360 tabs 08/15/23 [Rx Confirmed 04/14/24] mesalamine 1.2 gram tablet,delayed release 2.4 g PO BID 09/20/23 [History Confirmed 04/14/24] acetaminophen 650 mg tablet,extended release 650 mg PO Q8H PRN pain #30 tabs 09/26/23 [Rx Confirmed 04/14/24] loperamide 2 mg tablet (Imodium A-D) 2 mg PO Q6H PRN Diarrhea 09/26/23 [History Confirmed 04/14/24] furosemide 20 mg tablet 20 mg PO DAILY #30 tabs 12/03/23 [Rx Confirmed 04/14/24] calcium carbonate 600 mg PO DAILY #30 tabs 01/28/24 [Rx Confirmed 04/14/24] folic acid 1 mg tablet 1 mg PO DAILY #30 tabs 01/28/24 [Rx Confirmed 04/14/24] tiotropium bromide 18 mcg capsule with inhalation device (Spiriva with HandiHaler) 1 cap inhalation DAILY #60 inhalations 01/28/24 [Rx Confirmed 04/14/24] atorvastatin 20 mg tablet 20 mg PO QPM 02/14/24 [History Confirmed 04/14/24] magnesium oxide 400 mg (241.3 mg magnesium) tablet 400 mg PO BID #10 tabs 02/17/24 [Rx Confirmed 04/14/24] potassium chloride 20 mEq tablet,extended release(part/cryst) (Klor-Con M) 40 meq (2 x 20 mEq) PO DAILY #3 tabs 02/17/24 [Rx Confirmed 04/14/24] betamethasone dipropionate 0.05 % topical ointment 1 applic topical DAILY #45 grams 03/23/24 [Rx Confirmed 04/14/24] hydroxyzine HCl 25 mg tablet 25 mg PO TID PRN itching #30 tabs 04/01/24 [Rx Confirmed 04/14/24] mometasone-formoterol HFA 200 mcg-5 mcg/actuation aerosol inhaler (Dulera) 2 puff inhalation BID 04/14/24 [History Confirmed 04/14/24] Discharge Plan Discharge Patient Disposition: Home Condition: Stable Prescriptions: No Action cholecalciferol (vitamin D3) 1,250 mcg (50,000 unit) capsule 1,250 mcg PO Q30D Qty: 30 3RF lisinopril-hydrochlorothiazide 20-12.5 mg tablet 1 tab PO BID Qty: 180 3RF Hold Instructions: Resume on 02/22/24. pyridostigmine bromide 60 mg tablet 60 mg PO QID 90 Days Qty: 360 3RF betamethasone dipropionate 0.05 % ointment 1 applic topical DAILY Qty: 45 0RF hydroxyzine HCl 25 mg tablet 25 mg PO TID PRN (Reason: itching) Qty: 30 2RF krill oil 500 mg capsule 500 mg PO DAILY Qty: 90 4RF furosemide 20 mg tablet 20 mg PO DAILY Qty: 30 3RF Hold Instructions: Resume on 02/22/24. Spiriva with HandiHaler 18 mcg capsule, w/inhalation device 1 cap inhalation DAILY Qty: 60 4RF Rx Instructions: puncture 1 cap using device; one dose = 2 inhalations calcium carbonate 600 mg calcium (1,500 mg) tablet 600 mg PO DAILY Qty: 30 3RF folic acid 1 mg tablet 1 mg PO DAILY Qty: 30 3RF mesalamine 1.2 gram tablet,delayed release (DR/EC) 2.4 g PO BID loperamide [Imodium A-D] 2 mg Tablet 2 mg PO Q6H PRN (Reason: Diarrhea) acetaminophen 650 mg tablet extended release 650 mg PO Q8H PRN (Reason: pain) Qty: 30 0RF Dulera 200-5 mcg/actuation HFA aerosol inhaler 2 puff inhalation BID atorvastatin 20 mg tablet 20 mg PO QPM potassium chloride [Klor-Con M20] 20 mEq Tablet,Er Particles/Crystals 40 meq PO DAILY Qty: 3 0RF magnesium oxide 400 mg (241.3 mg magnesium) Tablet 400 mg PO BID Qty: 10 0RF Referrals: Ariadna Cruz MD [Primary Care Provider] - Patient Instructions: Opioid Safety, GI Discharge Instructions Coding Level of Care Code Acute Code for Chg Fwd Diagnoses Acute renal failure, unspecified acute renal failure type N17.9 Acute renal failure type: unspecified Acute metabolic acidosis E87.21 Hyperkalemia E87.5 Leukocytosis D72.829 NSTEMI (non-ST elevated myocardial infarction) I21.4 Urinary tract infection N39.0 Low BMI Sepsis A41.9 Pneumonia J18.9 Shock R57.9 Severe protein-calorie malnutrition E43 Physical deconditioning R53.81 Muscle wasting M62.50 Starvation ketoacidosis T73.0XXA; E87.29 Weight loss R63.4 GI bleed K92.2 Anemia D64.9
--- NOTE | 2024-04-17 17:33 | P.PN_ITS ---
Subjective 2 Subjective: Patient states she does not have any further black stools Vitals/I&O/Wt Last Vital Signs Temp 97.8 F 04/17/24 00:00 Pulse 82 04/17/24 16:00 Resp 19 H 04/17/24 16:00 BP 101/48 04/17/24 16:00 Pulse Ox 91 04/17/24 16:00 O2 Del Method Nasal Cannula 04/17/24 07:58 O2 Flow Rate 2 04/17/24 07:58 04/17/24 04/17/24 04/17/24 06:59 14:59 22:59 Intake Total 840 / 2340 450 / 450 100 / 550 Output Total 250 / 1050 750 / 750 Balance 590 / 1290 450 / 450 -650 / -200 Weight last 48 hrs Weight 108 lb Weight 102 lb 8 oz Weight 108 lb 7.479 oz Physical Exam 2 Narrative: Patient is a well developed well nourished and in NAD and is afebrile with vitals stable and is answering questions appropriately with a normal affect and is alert and oriented x3 HEENT: normocephalic with normal external ears and nonicteric, oral mucosa moist and dentition normal for age, trachea midline with no large masses visualized Heart: RRR, no gallops murmurs or rubs, normal PMI with no thrills Lungs: normal excursions, no loud audible wheezing, no subcutaneous emphysema Abdomen: nondistended, no gross hepatosplenomegaly, no masses, no rigidity or rebound, no loud borborygmi Neuro: nonfocal, JOSE, grossly normal sensation Musculoskeletal: good muscle tone, no fasciculations, normal gait Skin: pink warm and dry with no rashes or ecchymosis Vascular: good radial pulses, no ulceration, less than 2 second capillary refill in hand : deferred Urinary Catheter Management: Maldonado: Cath Placed During This Visit: yes Reason for Continuing Indwelling Catheter: Accurate Measurement of Urinary Output in Critically Ill Patients Urinary Catheter Date of Insertion: 04/14/24 Urinary Catheter Time of Insertion: 15:29 Data 04/17/24 04:25 04/17/24 04:25 A&P Assessment and plan (1) GI bleed: Qualifiers: GI bleed type/associated pathology: melena Qualified Code(s): K92.1 - Melena Plan Patient with no further frequent black stools. Hgb appears stable. She needs at least 8 weeks of PPI and carafate treatment to heal superficail erosions of distal esophagitis. She will need h pylori treatment if biopsy comes back positive. Attestations 2 Medical Necessity Statement*: see hospitalist note who is attending Coding Level of Care Code 85266 Diagnoses Gastrointestinal hemorrhage with melena K92.1 GI bleed type/associated pathology: melena
--- NOTE | 2024-04-17 20:35 | PC.NURSE ---
Medication concern over Bicarb drip ordered but dropped off NOV. Initially reached out Dr. Farrell, no answer. Then contacted Dr. Farias. Order clarified to DC bicarb drip.
[2024-04-17 21:19] LABS: Glucose Point of Care 118 mg/dL (70-110)
[2024-04-17 22:35] LABS: C.Diff PCR (Lab) POSITIVE (Negative)
[2024-04-17 23:01] LABS: Clostridioides Difficile Toxin NEGATIVE (Negative)
[2024-04-18] VITALS (51 sets, daily range): BP systolic 85–140; BP diastolic 49–92; PULSE 55–101; RESP 10–23; TEMP 36.6–37.1; O2SAT 90–100
[2024-04-18] MEDS: vancomycin 125 mg Capsule PO ×4 (00:25→17:53)
--- NOTE | 2024-04-18 01:16 | PC.NURSE ---
Pt A&O and insistent that her sister be contacted in reference to having C. Diff and not to visit in the morning per patients request. Family notified.
[2024-04-18 02:47] LABS: Basophils % 0.3 %; Eosinophils # 1.8 10^3/uL (0.0-0.8); Eosinophils % 18.2 %; Hematocrit 26.4 % (36-47); Lymphocytes % 9.6 %; Mean Corpuscular HGB Conc 31.4 g/dL (30-55); Mean Corpuscular Hemoglobin 29.5 pg (27-33); Mean Platelet Volume 9.9 fL (7.4-10.4); Monocytes # 0.7 10^3/uL (0.2-0.9); Monocytes % 6.8 %; Neutrophils # 6.44 10^3/uL (1.8-7.7); Neutrophils % 64.7 %; Nucleated Red Blood Cells % 0 %; Platelet Count 217 10^3/cmm (157-399); Red Blood Count 2.81 10^6/uL (3.85-5.65); Red Cell Distribution Width 13.8 % (12.1-15.1); White Blood Count 9.96 10^3/uL (3.29-11.43)
[2024-04-18 03:14] LABS: NT Pro B Type Natriuretic Pept 5932 pg/mL (0-125); Procalcitonin 0.62 ng/mL (0-0.5)
[2024-04-18 03:25] LABS: Alanine Aminotransferase 9 U/L (0-33); Albumin Level 2.8 g/dL (3.5-5.2); Alkaline Phosphatase 59 U/L (35-105); Anion Gap 14.7 (5-19); Aspartate Amino Transferase 16 U/L (0-32); Blood Urea Nitrogen 23 mg/dL (8-23); Calcium 6.7 mg/dL (8.5-10.5); Carbon Dioxide 37 mmol/L (22-29); Chloride 95 mmol/L (98-107); Creatinine Clr Calc Pharmacy 20.5646; Globulin 2.7 g/dL (1.3-4.6); Glucose 105 mg/dL (65-115); Magnesium 1.2 mg/dL (1.7-2.3); Osmolality Calculated 302 mOsm/kg (285-295); Phosphorus 3.4 mg/dL (2.5-4.5); Sodium 144 mmol/L (136-145); Total Bilirubin 0.3 mg/dL (0.15-1.2); Total Protein 5.5 g/dL (6.6-8.7)
[2024-04-18 03:28] LABS: Potassium 2.7 mmol/L (3.5-5.1)
[2024-04-18] MEDS: piperacillin-tazobactam 3.375 GM in sodium chloride 0.9% (plus) 50 ML IV ×2 (03:33→15:26)
[2024-04-18] MEDS: sucralfate 1 gm/10 mL Oral Liq UDC PO ×4 (03:33→21:38)
[2024-04-18] MEDS: potassium chloride ER 20 mEq Tablet PO (04:37)
[2024-04-18 07:49] LABS: Glucose Point of Care 75 mg/dL (70-110)
--- NOTE | 2024-04-18 09:05 | P.PN_ITS ---
Subjective 2 Subjective: Patient states she may have had some black stools on last Bm but hgb stable 8.3. Vitals/I&O/Wt Last Vital Signs Temp 98.6 F 04/18/24 08:00 Pulse 63 04/18/24 08:06 Resp 14 04/18/24 08:06 BP 86/50 04/18/24 08:00 Pulse Ox 100 04/18/24 08:06 O2 Del Method Nasal Cannula 04/18/24 08:06 O2 Flow Rate 2 04/18/24 08:06 04/17/24 04/18/24 04/18/24 22:59 06:59 14:59 Intake Total 1008.5106 / 1458.5106 115.687 / 1574.1975 50 / 50 Output Total 951 / 951 175 / 1126 Balance 57.5106 / 507.5106 -59.313 / 448.1975 50 / 50 Weight last 48 hrs Weight 109 lb 1.6 oz Weight 108 lb Physical Exam 2 Narrative: Patient is a well developed well nourished and in NAD and is afebrile with vitals stable and is answering questions appropriately with a normal affect and is alert and oriented x3 HEENT: normocephalic with normal external ears and nonicteric, oral mucosa moist and dentition normal for age, trachea midline with no large masses visualized Heart: RRR, no gallops murmurs or rubs, normal PMI with no thrills Lungs: normal excursions, no loud audible wheezing, no subcutaneous emphysema Abdomen: nondistended, no gross hepatosplenomegaly, no masses, no rigidity or rebound, no loud borborygmi Neuro: nonfocal, JOSE, grossly normal sensation Musculoskeletal: good muscle tone, no fasciculations, normal gait Skin: pink warm and dry with no rashes or ecchymosis Vascular: good radial pulses, no ulceration, less than 2 second capillary refill in hand : deferred Urinary Catheter Management: Maldonado: Cath Placed During This Visit: yes Reason for Continuing Indwelling Catheter: Accurate Measurement of Urinary Output in Critically Ill Patients Urinary Catheter Date of Insertion: 04/14/24 Urinary Catheter Time of Insertion: 15:29 Data 04/18/24 02:30 04/18/24 02:30 A&P Assessment and plan (1) Esophagitis: Plan Continue carafate and PPI for at least 8 weeks to treat small erosions x2 at GE junction that is likely source of intermittant bleeding in patient with large hiatal hernia of 5 cm. Check antral biopsy for h plori in about a week and start on h pylori if positive. Attestations 2 Medical Necessity Statement*: please see hospitalist note Dr. Farrell who is attending. Coding Level of Care Code Acute Code for [facility] Diagnoses Esophagitis K20.90
[2024-04-18] MEDS: pyridostigmine 60 mg Tablet PO ×4 (09:12→21:38)
[2024-04-18] MEDS: potassium chloride ER 20 mEq Tablet 40 MEQ PO (09:12)
[2024-04-18] MEDS: pantoprazole 40 mg SDV IVP ×2 (09:12→17:53)
[2024-04-18] MEDS: magnesium lactate 84 mg Tablet PO (09:12)
[2024-04-18 11:56] LABS: Glucose Point of Care 122 mg/dL (70-110)
--- NOTE | 2024-04-18 14:58 | P.PN_ITS ---
Subjective 2 Subjective: Patient was seen this morning, she is alert to person, to place, not to time she follows all commands, afebrile overnight, normotensive remains off pressors, urine output has improved, she feels better, but continues to have complaints of fatigue, malaise, Vitals/I&O/Wt Last Vital Signs Temp 98.6 F 04/18/24 08:00 Pulse 67 04/18/24 14:40 Resp 10 L 04/18/24 14:00 BP 122/65 04/18/24 14:00 Pulse Ox 98 04/18/24 14:00 O2 Del Method Nasal Cannula 04/18/24 14:00 O2 Flow Rate 2 04/18/24 14:00 04/17/24 04/18/24 04/18/24 22:59 06:59 14:59 Intake Total 1008.5106 / 1458.5106 115.687 / 1574.1976 220 / 220 Output Total 951 / 951 175 / 1126 Balance 57.5106 / 507.5106 -59.313 / 448.1976 220 / 220 Weight last 48 hrs Weight 49.487 kg Weight 48.988 kg Physical Exam 2 Const: COMMON NORMALS: no acute distress and patient oriented x3 Neck/C-Spine: COMMON NORMALS: no JVD Resp: COMMON NORMALS: normal respiratory effort, No retractions, No use of accessory muscles and clear to auscultation bilaterally AUSCULTATION: clear to auscultation bilaterally Cardio: COMMON NORMALS: no JVD, regular rate, regular rhythm, S1 normal heart sound present and S2 normal heart sound present RATE: regular rate RHYTHM: regular rhythm HEART SOUNDS: S1 normal heart sound present and S2 normal heart sound present GI: COMMON NORMALS: Normal to inspection, nondistended, normoactive bowel sounds present and non-tender Extremity: COMMON NORMALS: no pedal edema Neuro: COMMON NORMALS: patient oriented x3 Psych: COMMON NORMALS: mental status grossly normal Urinary Catheter Management: Maldonado: Cath Placed During This Visit: yes Reason for Continuing Indwelling Catheter: Accurate Measurement of Urinary Output in Critically Ill Patients Urinary Catheter Date of Insertion: 04/14/24 Urinary Catheter Time of Insertion: 15:29 Data 04/18/24 02:30 04/18/24 02:30 A&P Assessment and plan (1) Acute renal failure: Qualifiers: Acute renal failure type: unspecified Qualified Code(s): N17.9 - Acute kidney failure, unspecified (2) Acute metabolic acidosis: (3) Hyperkalemia: (4) Leukocytosis: (5) NSTEMI (non-ST elevated myocardial infarction): (6) Urinary tract infection: (7) Low BMI: (8) Sepsis: (9) Pneumonia: (10) Shock: (11) Severe protein-calorie malnutrition: (12) Physical deconditioning: (13) Muscle wasting: (14) Starvation ketoacidosis: (15) Weight loss: (16) GI bleed: Qualifiers: GI bleed type/associated pathology: melena Qualified Code(s): K92.1 - Melena (17) Anemia: Plan Acute renal failure -etiology ? Perhaps of dehydration, a combination of Lasix, and her home blood pressure medications ? Does have evidence of UTI, CT abdomen pelvis no obstructive uropathy ? Serum ketones are positive, could be starvation ketosis her BMI is 17 -A1c within normal limits ? 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 ? Hier lupus antigens are positive -Given history of myasthenia gravis, will hold off on high-dose steroids and committing her to a prolonged dose of steroids as creatinine is improving She will likely need a renal biopsy and nephrology follow-up as outpatient -She is status post fluid therapy, sodium bicarb therapy in the emergency room ? Plan on emergent dialysis, has dialysis catheter in place, has received dialysis, no plans of future dialysis as urine output has improved Hopefully dialysis catheter can come out on Saturday ? PICC line ? Levophed to maintain MAP in 65 Hyperkalemia, resolved -EKG showing peaked T waves -Status post calcium chloride, insulin, D50, fluids, bicarb Receiving urgent dialysis Metabolic acidosis, resolving Likely sec to acute renal failure ? Awaiting lactic acid -Getting dialysis today ?continue bicarb drip Acute metabolic acidosis, increased anion gap, resolving -Ketones positive -Blood sugar within normal limits -Suspect starvation ketosis Leukocytosis ? Does have atelectasis in bilateral lung bases ? Has evidence of UTI, ? Lactic acid 1.2 ? CRP elevated -UA shows evidence of UTI, has received Zosyn continue Zosyn ? Given atelectasis findings on chest x-ray or leukocytosis, vancomycin stopped ? Continue pneumonia treatment with Zosyn Low BMI, physical deconditioning, protein sonia malnutrition -Etiology unclear -Reports weight loss # Potentially related to rheumatologic disease as above?, Lupus? Shock, resolved -Likely secondary to acute renal failure, dehydration, sepsis from pneumonia and UTI -Continue vancomycin, Zosyn -PICC line to be placed -Receiving IV fluids Sepsis, resolved -Secondary pneumonia, UTI -CT chest abdomen pelvis ordered -Lactic acid within normal limits NSTEMI serial EKG, serial troponin, telemetry monitoring ? Cardiac echocardiogram CONCLUSIONS Normal left ventricular size, systolic function and wall thickness, with no regional wall motion abnormalities. Grade II/IV diastolic dysfunction, moderately elevated filling pressures. Left ventricular ejection fraction is estimated at 65 %. Normal right ventricular size and systolic function, RVSP 62.3 mmHg. Moderate pulmonary hypertension, RVSP 62.3 mmHg. Previous echo was in August 2023. There is no change with the exception of the pulmonary artery pressure. Previously the pulmonary artery pressure was measured at 14 mmHg. Clinical correlation recommended. GI bleed Status post EGD ? Protonix ?Carafate ? Monitor hemoglobin ? Monitor hemodynamics Full code SCDs for DVT prophylaxis, heparin Protonix for GI prophylaxis Status stable, prognosis guarded Spoke to nephrology today, will hold off on steroids committing her to a high dose of steroids and a prolonged dose of steroids given her improving renal function, given her history of myasthenia gravis, risk of myasthenia crisis, replace potassium, phosphorus, magnesium, recheck in the afternoon, remains off Levophed, monitor blood pressures, part of bed, speech therapy eval, PT OT, plan to recheck in BMP, phosphorus in the afternoon, Attestations 2 Medical Necessity Statement*: Patient requires hospitalization for acute renal failure, pneumonia, GI bleed, deconditioning Diagnoses Acute renal failure, unspecified acute renal failure type N17.9 Acute renal failure type: unspecified Acute metabolic acidosis E87.21 Hyperkalemia E87.5 Leukocytosis D72.829 NSTEMI (non-ST elevated myocardial infarction) I21.4 Urinary tract infection N39.0 Low BMI Sepsis A41.9 Pneumonia J18.9 Shock R57.9 Severe protein-calorie malnutrition E43 Physical deconditioning R53.81 Muscle wasting M62.50 Starvation ketoacidosis T73.0XXA; E87.29 Weight loss R63.4 Gastrointestinal hemorrhage with melena K92.1 GI bleed type/associated pathology: melena Anemia D64.9
[2024-04-18 16:06] LABS: Anion Gap 14.5 (5-19); Blood Urea Nitrogen 20 mg/dL (8-23); Calcium 6.7 mg/dL (8.5-10.5); Carbon Dioxide 33 mmol/L (22-29); Chloride 98 mmol/L (98-107); Glucose 96 mg/dL (65-115); Osmolality Calculated 296 mOsm/kg (285-295); Phosphorus 2.7 mg/dL (2.5-4.5); Potassium 3.5 mmol/L (3.5-5.1); Sodium 142 mmol/L (136-145)
[2024-04-18 16:09] LABS: Creatinine Clr Calc Pharmacy 22.8136
--- NOTE | 2024-04-18 17:45 | PM.PN ---
Subjective Subjective: no new c/o Medications: Reviewed: Yes Vitals/I&O/Wt Last Vital Signs Temp 98.6 F 04/18/24 08:00 Pulse 70 04/18/24 16:00 Resp 15 04/18/24 16:00 BP 116/58 04/18/24 16:00 Pulse Ox 100 04/18/24 16:00 O2 Del Method Nasal Cannula 04/18/24 16:00 O2 Flow Rate 2 04/18/24 16:00 04/18/24 04/18/24 04/18/24 06:59 14:59 22:59 Intake Total 115.687 / 1574.1975 220 / 220 Output Total 175 / 1126 Balance -59.313 / 448.1975 220 / 220 Weight last 48 hrs Weight 49.487 kg Weight 48.988 kg Physical Exam Narrative: Ill-appearing , Vital signs noted. HEENT normocephalic atraumatic. Neck is supple Lungs are clear Heart irregular with systolic murmur. Abdomen is soft positive bowel sounds extremities have no edema. Neuro confused. Patient was seen and examined using A/V equipment and the nurse performing physical exam as a telehealth visit. Urinary Catheter Management: Maldonado: Cath Placed During This Visit: yes Reason for Continuing Indwelling Catheter: Accurate Measurement of Urinary Output in Critically Ill Patients Urinary Catheter Date of Insertion: 04/14/24 Urinary Catheter Time of Insertion: 15:29 Data 04/18/24 02:30 04/18/24 15:34 A&P Assessment and plan (1) Acute renal failure: 73-year-old lady history of COPD, myasthenia gravis, Crohn's disease, hypertension hyperlipidemia history of C. difficile colitis, patient at home on lisinopril hydrochlorothiazide potassium magnesium and Lasix. Patient has been weak and lethargic for the last few days. 2. Rule out sepsis - Note patient has history of C. difficile colitis. Would panculture. 3. Metabolic acidosis with respiratory compensation. Her anion gap is 32. Lactate is normal. Will send an ethyelene Glycol level though family denies she could have used any toxins such as antifreeze. 4. Acute kidney injury most likely ATN versus prerenal azotemia. AIN possible due to presence of + eosinophil smear , BK and rash , leukocytes in urine . As Cr is improving , will not consider high dose steroids Needs Nephrology follow up after DC HD done saturday UOP and Cr better , assessing for recovery The patient's family and the patient consent to telehealth. Qualifiers: Acute renal failure type: unspecified Qualified Code(s): N17.9 - Acute kidney failure, unspecified Attestations Medical Necessity Statement*: per [facility] Coding Level of Care Code Acute Code for Chg Fwd Diagnoses Acute renal failure, unspecified acute renal failure type N17.9 Acute renal failure type: unspecified
[2024-04-18 17:53] LABS: Glucose Point of Care 103 mg/dL (70-110)
--- NOTE | 2024-04-18 19:06 | PC.NURSE ---
Uneventful shift. Patient had small to moderate bowel movements as documented. See stable vitals. Nutritional supplements encouraged, patient declined.
[2024-04-18 21:58] LABS: Glucose Point of Care 114 mg/dL (70-110)
[2024-04-19] VITALS (38 sets, daily range): BP systolic 108–147; BP diastolic 52–75; PULSE 54–96; RESP 12–23; TEMP 36.6–36.8; O2SAT 90–100
[2024-04-19] MEDS: vancomycin 125 mg Capsule PO ×4 (01:51→18:39)
[2024-04-19] MEDS: sucralfate 1 gm/10 mL Oral Liq UDC PO ×4 (03:54→20:32)
[2024-04-19] MEDS: piperacillin-tazobactam 3.375 GM in sodium chloride 0.9% (plus) 50 ML IV ×2 (03:54→14:53)
[2024-04-19 04:33] LABS: Basophils % 0.2 %; Eosinophils # 1.9 10^3/uL (0.0-0.8); Eosinophils % 20.2 %; Hematocrit 25.7 % (36-47); Lymphocytes # 0.9 10^3/uL (0.8-4.8); Lymphocytes % 9.7 %; Mean Corpuscular HGB Conc 31.5 g/dL (30-55); Mean Corpuscular Hemoglobin 30.1 pg (27-33); Mean Corpuscular Volume 95.5 fl (85-98); Mean Platelet Volume 9.4 fL (7.4-10.4); Monocytes # 0.7 10^3/uL (0.2-0.9); Monocytes % 7.3 %; Neutrophils # 5.82 10^3/uL (1.8-7.7); Neutrophils % 62.2 %; Nucleated Red Blood Cells % 0 %; Platelet Count 190 10^3/cmm (157-399); Red Blood Count 2.69 10^6/uL (3.85-5.65); White Blood Count 9.36 10^3/uL (3.29-11.43)
[2024-04-19 05:05] LABS: Alanine Aminotransferase 9 U/L (0-33); Albumin Level 2.8 g/dL (3.5-5.2); Alkaline Phosphatase 58 U/L (35-105); Blood Urea Nitrogen 18 mg/dL (8-23); C Reactive Protein 13.8 mg/L (0.0-4.9); Calcium 6.6 mg/dL (8.5-10.5); Carbon Dioxide 31 mmol/L (22-29); Chloride 100 mmol/L (98-107); Globulin 2.2 g/dL (1.3-4.6); Glucose 87 mg/dL (65-115); Magnesium 1.2 mg/dL (1.7-2.3); Osmolality Calculated 295 mOsm/kg (285-295); Phosphorus 2.8 mg/dL (2.5-4.5); Sodium 142 mmol/L (136-145); Total Bilirubin 0.4 mg/dL (0.15-1.2)
[2024-04-19 05:09] LABS: Aspartate Amino Transferase 17 U/L (0-32)
[2024-04-19 06:05] LABS: NT Pro B Type Natriuretic Pept 3809 pg/mL (0-125)
[2024-04-19] MEDS: potassium chloride ER 20 mEq Tablet 40 MEQ PO (07:17)
[2024-04-19 07:24] LABS: Glucose Point of Care 78 mg/dL (70-110)
--- NOTE | 2024-04-19 07:41 | P.PN_ITS ---
Subjective 2 Subjective: no new c/o Medications: Reviewed: Yes Vitals/I&O/Wt Last Vital Signs Temp 98.0 F 04/19/24 04:00 Pulse 66 04/19/24 06:30 Resp 21 H 04/19/24 06:30 BP 112/57 04/19/24 06:30 Pulse Ox 96 04/19/24 06:30 O2 Del Method Nasal Cannula 04/19/24 04:00 O2 Flow Rate 2 04/19/24 04:00 04/18/24 04/19/24 04/19/24 22:59 06:59 14:59 Intake Total 260 / 480 Output Total 1000 / 1000 175 / 1175 Balance -740 / -520 -175 / -695 Weight last 48 hrs Weight 48.489 kg Weight 49.487 kg Physical Exam 2 Narrative: Ill-appearing , Vital signs noted. HEENT normocephalic atraumatic. Neck is supple Lungs are clear Heart irregular with systolic murmur. Abdomen is soft positive bowel sounds extremities have no edema. Neuro confused. Patient was seen and examined using A/V equipment and the nurse performing physical exam as a telehealth visit. Urinary Catheter Management: Maldonado: Cath Placed During This Visit: yes Reason for Continuing Indwelling Catheter: Accurate Measurement of Urinary Output in Critically Ill Patients Urinary Catheter Date of Insertion: 04/14/24 Urinary Catheter Time of Insertion: 15:29 Data 04/19/24 04:06 04/19/24 04:06 A&P Assessment and plan (1) Acute renal failure: 73-year-old lady history of COPD, myasthenia gravis, Crohn's disease, hypertension hyperlipidemia history of C. difficile colitis, patient at home on lisinopril hydrochlorothiazide potassium magnesium and Lasix. Patient has been weak and lethargic for the last few days. 2. Rule out sepsis - Note patient has history of C. difficile colitis. Would panculture. 3. Metabolic acidosis with respiratory compensation. Her anion gap is 32. Lactate is normal. Will send an ethyelene Glycol level though family denies she could have used any toxins such as antifreeze. 4. Acute kidney injury most likely ATN versus prerenal azotemia. AIN possible due to presence of + eosinophil smear , BK and rash , leukocytes in urine . As Cr is improving , will not consider high dose steroids Needs Nephrology follow up after DC HD done saturday UOP and Cr better , recoving kidney function, can DC temp catheter The patient's family and the patient consent to telehealth. Qualifiers: Acute renal failure type: unspecified Qualified Code(s): N17.9 - Acute kidney failure, unspecified Attestations 2 Medical Necessity Statement*: per [facility] Coding Level of Care Code Acute Code for g Fwd Diagnoses Acute renal failure, unspecified acute renal failure type N17.9 Acute renal failure type: unspecified
[2024-04-19] MEDS: sodium chlor 0.9% + KCl 20 mEq 20 MEQ/1,000 ML BAG 50 MEQ IV (08:06)
[2024-04-19] MEDS: pyridostigmine 60 mg Tablet PO ×4 (08:06→20:33)
[2024-04-19] MEDS: pantoprazole 40 mg SDV IVP ×2 (08:06→18:39)
[2024-04-19] MEDS: magnesium lactate 84 mg Tablet PO ×3 (08:06→20:33)
--- NOTE | 2024-04-19 08:55 | PC.NURSE ---
Dr. Farrell made aware patient had 40 PO K and is currently receiving maintenance fluid with 20meq K. Ordered K in 100ml not given. See MAR.
--- NOTE | 2024-04-19 15:24 | PC.NURSE ---
Report called to medical surgical floor, patient to move to room 272. Patients sister, Dayami updated via telephone.
--- NOTE | 2024-04-19 16:43 | PC.NURSE ---
Patient transferred to room 272 via bed on 2L NC, uneventful transfer. One RN and [employer]NAGER [employer] at bedside. Paper chart left with staff at front desk person. Medications infusion per NOV. All belongings with patient at the time of transfer. Family has been notified.
--- NOTE | 2024-04-19 16:51 | P.PN_ITS ---
Subjective 2 Subjective: Patient was seen this morning, alert oriented x 4, following all commands, reporting generalized weakness, fatigue, she wants to try to sit up in a chair, afebrile overnight remains normotensive remains off pressors, good urine output Vitals/I&O/Wt Last Vital Signs Temp 98.0 F 04/19/24 04:00 Pulse 67 04/19/24 16:00 Resp 17 04/19/24 16:00 BP 112/62 04/19/24 16:00 Pulse Ox 100 04/19/24 16:00 O2 Del Method Nasal Cannula 04/19/24 16:00 O2 Flow Rate 2 04/19/24 10:00 04/19/24 04/19/24 04/19/24 06:59 14:59 22:59 Intake Total 290 / 290 Output Total 175 / 1175 300 / 300 Balance -175 / -695 -10 / -10 Weight last 48 hrs Weight 48.489 kg Weight 49.487 kg Physical Exam 2 Const: COMMON NORMALS: no acute distress and patient oriented x3 Resp: COMMON NORMALS: normal respiratory effort, No retractions, No use of accessory muscles and clear to auscultation bilaterally AUSCULTATION: clear to auscultation bilaterally Cardio: COMMON NORMALS: regular rate, regular rhythm, S1 normal heart sound present and S2 normal heart sound present RATE: regular rate RHYTHM: r egular rhythm HEART SOUNDS: S1 normal heart sound present and S2 normal heart sound present GI: COMMON NORMALS: Normal to inspection, nondistended, normoactive bowel sounds present and non-tender Extremity: COMMON NORMALS: no pedal edema Neuro: COMMON NORMALS: patient oriented x3 Psych: COMMON NORMALS: mental status grossly normal Urinary Catheter Management: Maldonado: Cath Placed During This Visit: yes Reason for Continuing Indwelling Catheter: Accurate Measurement of Urinary Output in Critically Ill Patients Urinary Catheter Date of Insertion: 04/14/24 Urinary Catheter Time of Insertion: 15:29 Data 04/19/24 04:06 04/19/24 04:06 Micro: Microbiology 04/14/24 14:08 Blood Culture - Final Blood NO GROWTH AFTER 5 DAYS 04/14/24 14:04 Blood Culture - Final Blood NO GROWTH AFTER 5 DAYS A&P Assessment and plan (1) Acute renal failure: Qualifiers: Acute renal failure type: unspecified Qualified Code(s): N17.9 - Acute kidney failure, unspecified (2) Acute metabolic acidosis: (3) Hyperkalemia: (4) Leukocytosis: (5) NSTEMI (non-ST elevated myocardial infarction): (6) Urinary tract infection: (7) Low BMI: (8) Sepsis: (9) Pneumonia: (10) Shock: (11) Severe protein-calorie malnutrition: (12) Physical deconditioning: (13) Muscle wasting: (14) Starvation ketoacidosis: (15) Weight loss: (16) GI bleed: Qualifiers: GI bleed type/associated pathology: melena Qualified Code(s): K92.1 - Melena (17) Anemia: (18) Clostridium difficile colitis: Plan Acute renal failure -etiology ? Perhaps of dehydration, a combination of Lasix, and her home blood pressure medications ? Does have evidence of UTI, CT abdomen pelvis no obstructive uropathy ? Serum ketones are positive, could be starvation ketosis her BMI is 17 -A1c within normal limits ? 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 ? Hier lupus antigens are positive -Given history of myasthenia gravis, will hold off on high-dose steroids and committing her to a prolonged dose of steroids as creatinine is improving She will likely need a renal biopsy and nephrology follow-up as outpatient -She is status post fluid therapy, sodium bicarb therapy in the emergency room ? Plan on emergent dialysis, has dialysis catheter in place, has received dialysis, no plans of future dialysis as urine output has improved Hopefully dialysis catheter can come out on Saturday ? PICC line ? Levophed to maintain MAP in 65 Hyperkalemia, resolved -EKG showing peaked T waves -Status post calcium chloride, insulin, D50, fluids, bicarb Receiving urgent dialysis Metabolic acidosis, resolving Likely sec to acute renal failure ? Awaiting lactic acid -Getting dialysis today ?continue bicarb drip Acute metabolic acidosis, increased anion gap, resolving -Ketones positive -Blood sugar within normal limits -Suspect starvation ketosis Leukocytosis ? Does have atelectasis in bilateral lung bases ? Has evidence of UTI, ? Lactic acid 1.2 ? CRP elevated -UA shows evidence of UTI, has received Zosyn continue Zosyn ? Given atelectasis findings on chest x-ray or leukocytosis, vancomycin stopped ? Continue pneumonia treatment with Zosyn Low BMI, physical deconditioning, protein sonia malnutrition -Etiology unclear -Reports weight loss # Potentially related to rheumatologic disease as above?, Lupus? Shock, resolved -Likely secondary to acute renal failure, dehydration, sepsis from pneumonia and UTI -Continue vancomycin, Zosyn -PICC line to be placed -Receiving IV fluids Sepsis, resolved -Secondary pneumonia, UTI -CT chest abdomen pelvis ordered -Lactic acid within normal limits NSTEMI serial EKG, serial troponin, telemetry monitoring ? Cardiac echocardiogram CONCLUSIONS Normal left ventricular size, systolic function and wall thickness, with no regional wall motion abnormalities. Grade II/IV diastolic dysfunction, moderately elevated filling pressures. Left ventricular ejection fraction is estimated at 65 %. Normal right ventricular size and systolic function, RVSP 62.3 mmHg. Moderate pulmonary hypertension, RVSP 62.3 mmHg. Previous echo was in August 2023. There is no change with the exception of the pulmonary artery pressure. Previously the pulmonary artery pressure was measured at 14 mmHg. Clinical correlation recommended. GI bleed Status post EGD ? Protonix ?Carafate ? Monitor hemoglobin ? Monitor hemodynamics C. difficile colitis, on p.o. vancomycin Full code SCDs for DVT prophylaxis, heparin Protonix for GI prophylaxis Status stable, prognosis guarded Plan for today up out of bed, PT OT, speech therapy eval, will moved to general medical floors replace potassium monitor clinical status, replace potassium, phosphorus, magnesium, monitor for refeeding syndrome Attestations 2 Medical Necessity Statement*: Patient requires hospitalization for acute renal failure, deconditioning, low BMI Diagnoses Acute renal failure, unspecified acute renal failure type N17.9 Acute renal failure type: unspecified Acute metabolic acidosis E87.21 Hyperkalemia E87.5 Leukocytosis D72.829 NSTEMI (non-ST elevated myocardial infarction) I21.4 Urinary tract infection N39.0 Low BMI Sepsis A41.9 Pneumonia J18.9 Shock R57.9 Severe protein-calorie malnutrition E43 Physical deconditioning R53.81 Muscle wasting M62.50 Starvation ketoacidosis T73.0XXA; E87.29 Weight loss R63.4 Gastrointestinal hemorrhage with melena K92.1 GI bleed type/associated pathology: melena Anemia D64.9 Clostridium difficile colitis A04.72
[2024-04-19 17:09] LABS: Glucose Point of Care 95 mg/dL (70-110)
[2024-04-19 17:09] LABS: Glucose Point of Care 69 mg/dL (70-110)
[2024-04-20] VITALS (9 sets, daily range): BP systolic 104–152; BP diastolic 48–80; PULSE 62–98; RESP 15–18; TEMP 36.4–36.9; O2SAT 90–100
[2024-04-20] MEDS: sucralfate 1 gm/10 mL Oral Liq UDC PO ×4 (02:05→20:44)
[2024-04-20] MEDS: vancomycin 125 mg Capsule PO ×4 (02:05→17:38)
[2024-04-20 04:50] LABS: Basophils % 0.2 %; Eosinophils % 19.1 %; Hematocrit 24.6 % (36-47); Lymphocytes % 9.3 %; Mean Corpuscular HGB Conc 30.9 g/dL (30-55); Mean Corpuscular Hemoglobin 29.8 pg (27-33); Mean Corpuscular Volume 96.5 fl (85-98); Mean Platelet Volume 9.5 fL (7.4-10.4); Monocytes # 0.7 10^3/uL (0.2-0.9); Monocytes % 7.1 %; Neutrophils % 63.5 %; Nucleated Red Blood Cells % 0 %; Platelet Count 196 10^3/cmm (157-399); Red Blood Count 2.55 10^6/uL (3.85-5.65); Red Cell Distribution Width 13.8 % (12.1-15.1); White Blood Count 10.23 10^3/uL (3.29-11.43)
[2024-04-20 05:13] LABS: NT Pro B Type Natriuretic Pept 3629 pg/mL (0-125); Procalcitonin 0.26 ng/mL (0-0.5)
[2024-04-20 05:24] LABS: Alanine Aminotransferase 9 U/L (0-33); Albumin Level 2.6 g/dL (3.5-5.2); Alkaline Phosphatase 51 U/L (35-105); Anion Gap 11.8 (5-19); Aspartate Amino Transferase 15 U/L (0-32); Blood Urea Nitrogen 12 mg/dL (8-23); C Reactive Protein 8.8 mg/L (0.0-4.9); Calcium 6.3 mg/dL (8.5-10.5); Carbon Dioxide 27 mmol/L (22-29); Chloride 108 mmol/L (98-107); Creatinine Clr Calc Pharmacy 36.6556; Globulin 2.5 g/dL (1.3-4.6); Glucose 89 mg/dL (65-115); Osmolality Calculated 295 mOsm/kg (285-295); Phosphorus 1.8 mg/dL (2.5-4.5); Potassium 3.8 mmol/L (3.5-5.1); Sodium 143 mmol/L (136-145); Total Bilirubin 0.3 mg/dL (0.15-1.2); Total Protein 5.1 g/dL (6.6-8.7)
[2024-04-20] MEDS: sodium chlor 0.9% + KCl 20 mEq 20 MEQ/1,000 ML BAG 50 MEQ IV (06:04)
[2024-04-20 07:05] LABS: Glucose Point of Care 94 mg/dL (70-110)
[2024-04-20 07:32] LABS: Glucose Point of Care 125 mg/dL (70-110)
[2024-04-20 07:33] LABS: Glucose Point of Care 113 mg/dL (70-110)
[2024-04-20] MEDS: pantoprazole 40 mg SDV IVP ×2 (08:13→17:38)
[2024-04-20] MEDS: pyridostigmine 60 mg Tablet PO ×4 (08:13→20:44)
[2024-04-20] MEDS: amoxicillin-clav 875-125 mg Tablet 1 TAB PO ×2 (08:13→17:37)
[2024-04-20] MEDS: magnesium lactate 84 mg Tablet PO ×2 (08:13→20:44)
--- NOTE | 2024-04-20 08:55 | P.PN_ITS ---
Subjective 2 Subjective: no new complaints Medications: Reviewed: Yes Vitals/I&O/Wt Last Vital Signs Temp 98.2 F 04/20/24 07:35 Pulse 65 04/20/24 07:35 Resp 18 04/20/24 07:35 BP 115/69 04/20/24 07:35 Pulse Ox 97 04/20/24 07:35 O2 Del Method Nasal Cannula 04/20/24 07:35 O2 Flow Rate 2 04/19/24 10:00 04/19/24 04/20/24 04/20/24 22:59 06:59 14:59 Intake Total 50 / 340 1000 / 1340 102.5 / 102.5 Output Total 300 / 600 Balance 50 / 40 700 / 740 102.5 / 102.5 Weight last 48 hrs Weight 51.483 kg Weight 48.489 kg Physical Exam 2 Narrative: Ill-appearing , Vital signs noted. HEENT normocephalic atraumatic. Neck is supple Lungs are clear Heart irregular with systolic murmur. Abdomen is soft positive bowel sounds extremities have no edema. Neuro confused. Patient was seen and examined using A/V equipment and the nurse performing physical exam as a telehealth visit. Urinary Catheter Management: Maldonado: Cath Placed During This Visit: yes Reason for Continuing Indwelling Catheter: Acute Urinary Retention or Obstruction Urinary Catheter Date of Insertion: 04/14/24 Urinary Catheter Time of Insertion: 15:29 Data 04/20/24 04:26 04/20/24 04:26 Micro: Microbiology 04/14/24 14:08 Blood Culture - Final Blood NO GROWTH AFTER 5 DAYS 04/14/24 14:04 Blood Culture - Final Blood NO GROWTH AFTER 5 DAYS A&P Assessment and plan (1) Acute renal failure: 73-year-old lady history of COPD, myasthenia gravis, Crohn's disease, hypertension hyperlipidemia history of C. difficile colitis, patient at home on lisinopril hydrochlorothiazide potassium magnesium and Lasix. Patient has been weak and lethargic for the last few days. 2. Rule out sepsis - Note patient has history of C. difficile colitis. Would panculture. 3. Metabolic acidosis with respiratory compensation. Her anion gap is 32. Lactate is normal. Will send an ethyelene Glycol level though family denies she could have used any toxins such as antifreeze. 4. Acute kidney injury most likely ATN versus prerenal azotemia. AIN possible due to presence of + eosinophil smear , BK and rash , leukocytes in urine . As Cr is improving , will not consider high dose steroids Needs Nephrology follow up after DC Last HD done saturday UOP and Cr better , recovered kidney function, The patient's family and the patient consent to telehealth. Qualifiers: Acute renal failure type: unspecified Qualified Code(s): N17.9 - Acute kidney failure, unspecified Attestations 2 Medical Necessity Statement*: per jaclyn Coding Level of Care Code Acute Code for Chg Fwd Diagnoses Acute renal failure, unspecified acute renal failure type N17.9 Acute renal failure type: unspecified
[2024-04-20] MEDS: potassium chloride ER 20 mEq Tablet PO (12:25)
[2024-04-20] MEDS: phosphorus 250 mg Tablet PO ×2 (12:25→17:37)
[2024-04-20 12:30] LABS: SS A Ro Sjogrens Antibody <1.0 NEG AI (<1.0 NEG); SS-B/LA IGG <1.0 NEG AI (<1.0 NEG); Smith Antibody <1.0 NEG AI (<1.0 NEG)
[2024-04-20 12:41] LABS: Basophils % 0.2 %; Eosinophils # 1.4 10^3/uL (0.0-0.8); Eosinophils % 11.1 %; Hematocrit 28.1 % (36-47); Lymphocytes # 0.9 10^3/uL (0.8-4.8); Lymphocytes % 7.4 %; Mean Corpuscular HGB Conc 31.3 g/dL (30-55); Mean Corpuscular Hemoglobin 29.7 pg (27-33); Mean Corpuscular Volume 94.9 fl (85-98); Mean Platelet Volume 9.6 fL (7.4-10.4); Monocytes # 0.7 10^3/uL (0.2-0.9); Monocytes % 5.9 %; Neutrophils # 9.12 10^3/uL (1.8-7.7); Neutrophils % 74.7 %; Nucleated Red Blood Cells % 0 %; Platelet Count 220 10^3/cmm (157-399); Red Blood Count 2.96 10^6/uL (3.85-5.65); Red Cell Distribution Width 13.6 % (12.1-15.1)
--- NOTE | 2024-04-20 14:39 | P.PN_ITS ---
Subjective 2 Subjective: patient was seen this morning, sitting up in a chair, noncompliant, feeling generalized weakness Vitals/I&O/Wt Last Vital Signs Temp 98.1 F 04/20/24 11:36 Pulse 77 04/20/24 11:36 Resp 18 04/20/24 11:36 BP 111/61 04/20/24 11:36 Pulse Ox 90 04/20/24 11:36 O2 Del Method Room Air 04/20/24 11:36 O2 Flow Rate 2 04/20/24 09:46 04/19/24 04/20/24 04/20/24 22:59 06:59 14:59 Intake Total 50 / 340 1000 / 1340 702.5 / 702.5 Output Total 300 / 600 Balance 50 / 40 700 / 740 702.5 / 702.5 Weight last 48 hrs Weight 51.483 kg Weight 48.489 kg Physical Exam 2 Const: COMMON NORMALS: no acute distress and patient oriented x3 Resp: COMMON NORMALS: normal respiratory effort, No retractions, No use of accessory muscles and clear to auscultation bilaterally AUSCULTATION: clear to auscultation bilaterally Cardio: COMMON NORMALS: regular rate, regular rhythm, S1 normal heart sound present and S2 normal heart sound present RATE: regular rate RHYTHM: r egular rhythm HEART SOUNDS: S1 normal heart sound present and S2 normal heart sound present GI: COMMON NORMALS: Normal to inspection, nondistended, normoactive bowel sounds present and non-tender Extremity: COMMON NORMALS: no clubbing, cyanosis or edema and no pedal edema Neuro: COMMON NORMALS: patient oriented x3 Urinary Catheter Management: Pedro: Cath Placed During This Visit: yes Reason for Continuing Indwelling Catheter: Acute Urinary Retention or Obstruction Urinary Catheter Date of Insertion: 04/14/24 Urinary Catheter Time of Insertion: 15:29 Data 04/20/24 12:24 04/20/24 04:26 Micro: Microbiology 04/14/24 14:08 Blood Culture - Final Blood NO GROWTH AFTER 5 DAYS 04/14/24 14:04 Blood Culture - Final Blood NO GROWTH AFTER 5 DAYS A&P Assessment and plan (1) Acute renal failure: Qualifiers: Acute renal failure type: unspecified Qualified Code(s): N17.9 - Acute kidney failure, unspecified (2) Acute metabolic acidosis: (3) Hyperkalemia: (4) Leukocytosis: (5) NSTEMI (non-ST elevated myocardial infarction): (6) Urinary tract infection: (7) Low BMI: (8) Sepsis: (9) Pneumonia: (10) Shock: (11) Severe protein-calorie malnutrition: (12) Physical deconditioning: (13) Muscle wasting: (14) Starvation ketoacidosis: (15) Weight loss: (16) GI bleed: Qualifiers: GI bleed type/associated pathology: melena Qualified Code(s): K92.1 - Melena (17) Anemia: (18) Clostridium difficile colitis: Plan Acute renal failure -etiology ? Perhaps of dehydration, a combination of Lasix, and her home blood pressure medications ? Does have evidence of UTI, CT abdomen pelvis no obstructive uropathy ? Serum ketones are positive, could be starvation ketosis her BMI is 17 -A1c within normal limits ? 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 ? Hier lupus antigens are positive -Given history of myasthenia gravis, will hold off on high-dose steroids and committing her to a prolonged dose of steroids as creatinine is improving She will likely need a renal biopsy and nephrology follow-up as outpatient -She is status post fluid therapy, sodium bicarb therapy in the emergency room ? Plan on emergent dialysis, has dialysis catheter in place, has received dialysis, no plans of future dialysis as urine output has improved Hopefully dialysis catheter can come out on Saturday ? PICC line ? Levophed to maintain MAP in 65 Hyperkalemia, resolved -EKG showing peaked T waves -Status post calcium chloride, insulin, D50, fluids, bicarb Receiving urgent dialysis Metabolic acidosis, resolving Likely sec to acute renal failure ? Awaiting lactic acid -Getting dialysis today ?continue bicarb drip Acute metabolic acidosis, increased anion gap, resolving -Ketones positive -Blood sugar within normal limits -Suspect starvation ketosis Leukocytosis ? Does have atelectasis in bilateral lung bases ? Has evidence of UTI, ? Lactic acid 1.2 ? CRP elevated -UA shows evidence of UTI, has received Zosyn continue Zosyn ? Given atelectasis findings on chest x-ray or leukocytosis, vancomycin stopped ? Continue pneumonia treatment with Zosyn Low BMI, physical deconditioning, protein sonia malnutrition -Etiology unclear -Reports weight loss # Potentially related to rheumatologic disease as above?, Lupus? Shock, resolved -Likely secondary to acute renal failure, dehydration, sepsis from pneumonia and UTI -Continue vancomycin, Zosyn -PICC line to be placed -Receiving IV fluids Sepsis, resolved -Secondary pneumonia, UTI -CT chest abdomen pelvis ordered -Lactic acid within normal limits NSTEMI serial EKG, serial troponin, telemetry monitoring ? Cardiac echocardiogram CONCLUSIONS Normal left ventricular size, systolic function and wall thickness, with no regional wall motion abnormalities. Grade II/IV diastolic dysfunction, moderately elevated filling pressures. Left ventricular ejection fraction is estimated at 65 %. Normal right ventricular size and systolic function, RVSP 62.3 mmHg. Moderate pulmonary hypertension, RVSP 62.3 mmHg. Previous echo was in August 2023. There is no change with the exception of the pulmonary artery pressure. Previously the pulmonary artery pressure was measured at 14 mmHg. Clinical correlation recommended. GI bleed Status post EGD ? Protonix ?Carafate ? Monitor hemoglobin ? Monitor hemodynamics C. difficile colitis, on p.o. vancomycin Full code SCDs for DVT prophylaxis, heparin Protonix for GI prophylaxis Status stable, prognosis guarded Plan for today up out of bed, PT OT, speech therapy eval,moved to general medical floors replace potassium monitor clinical status, replace potassium, phosphorus, magnesium, monitor for refeeding syndrome, remove hd catheter, remove picc line, remove pedro Attestations 2 Medical Necessity Statement*: patient acute renal failure, cdifficile colitis Diagnoses Acute renal failure, unspecified acute renal failure type N17.9 Acute renal failure type: unspecified Acute metabolic acidosis E87.21 Hyperkalemia E87.5 Leukocytosis D72.829 NSTEMI (non-ST elevated myocardial infarction) I21.4 Urinary tract infection N39.0 Low BMI Sepsis A41.9 Pneumonia J18.9 Shock R57.9 Severe protein-calorie malnutrition E43 Physical deconditioning R53.81 Muscle wasting M62.50 Starvation ketoacidosis T73.0XXA; E87.29 Weight loss R63.4 Gastrointestinal hemorrhage with melena K92.1 GI bleed type/associated pathology: melena Anemia D64.9 Clostridium difficile colitis A04.72
[2024-04-20 15:09] LABS: Glucose Point of Care 116 mg/dL (70-110)
[2024-04-20 15:43] LABS: Anti-Double Strand DNA AB 1 IU/mL
[2024-04-20 15:50] LABS: Ethylene Glycol <10.0 mg/L (***)
[2024-04-20 15:50] LABS: Ethylene Glycol <10.0 mg/L (***)
--- NOTE | 2024-04-20 16:34 | PC.OT ---
OT TREATMENT ATTEMPTED. PATIENT STATES THAT SHE IS RESTING AT THIS TIME AND DOES NOT WISH TO PARTICIPATE IN THERAPY THIS AFTERNOON.
[2024-04-20 16:50] LABS: Glucose Point of Care 113 mg/dL (70-110)
[2024-04-20 20:56] LABS: Glucose Point of Care 118 mg/dL (70-110)
[2024-04-21] VITALS (7 sets, daily range): BP systolic 106–132; BP diastolic 61–63; PULSE 63–84; RESP 16–18; TEMP 36.4–36.8; O2SAT 95–98
[2024-04-21] MEDS: vancomycin 125 mg Capsule PO ×3 (01:21→12:30)
[2024-04-21] MEDS: sucralfate 1 gm/10 mL Oral Liq UDC PO ×2 (03:54→09:45)
[2024-04-21 07:02] LABS: Basophils # 0.1 10^3/uL (0.0-0.1); Basophils % 0.7 %; Eosinophils # 1.4 10^3/uL (0.0-0.8); Eosinophils % 15.1 %; Hematocrit 32.7 % (36-47); Lymphocytes # 1.2 10^3/uL (0.8-4.8); Lymphocytes % 13.2 %; Mean Corpuscular HGB Conc 27.8 g/dL (30-55); Mean Corpuscular Hemoglobin 30.1 pg (27-33); Mean Corpuscular Volume 108.3 fl (85-98); Mean Platelet Volume 9.7 fL (7.4-10.4); Monocytes # 0.7 10^3/uL (0.2-0.9); Monocytes % 7.3 %; Neutrophils # 5.71 10^3/uL (1.8-7.7); Neutrophils % 62.7 %; Nucleated Red Blood Cells % 0 %; Platelet Count 198 10^3/cmm (157-399); Red Blood Count 3.02 10^6/uL (3.85-5.65); White Blood Count 9.09 10^3/uL (3.29-11.43)
[2024-04-21 07:04] LABS: Anion Gap 15.3 (5-19); Blood Urea Nitrogen 9 mg/dL (8-23); Calcium 6.6 mg/dL (8.5-10.5); Carbon Dioxide 21 mmol/L (22-29); Chloride 109 mmol/L (98-107); Glucose 87 mg/dL (65-115); Osmolality Calculated 292 mOsm/kg (285-295); Potassium 3.3 mmol/L (3.5-5.1); Sodium 142 mmol/L (136-145)
[2024-04-21] MEDS: phosphorus 250 mg Tablet PO (09:45)
[2024-04-21] MEDS: pyridostigmine 60 mg Tablet PO ×2 (09:45→12:30)
[2024-04-21] MEDS: potassium chloride ER 20 mEq Tablet PO (09:45)
[2024-04-21] MEDS: amoxicillin-clav 875-125 mg Tablet 1 TAB PO (09:45)
[2024-04-21] MEDS: magnesium lactate 84 mg Tablet PO (09:45)
[2024-04-21] MEDS: pantoprazole 40 mg SDV IVP (09:45)
--- NOTE | 2024-04-21 10:49 | P.PN_ITS ---
Subjective 2 Subjective: doing well Medications: Reviewed: Yes Vitals/I&O/Wt Last Vital Signs Temp 97.5 F L 04/21/24 11:49 Pulse 84 04/21/24 11:49 Resp 17 04/21/24 11:49 BP 106/61 04/21/24 11:49 Pulse Ox 96 04/21/24 11:49 O2 Del Method Room Air 04/21/24 11:49 O2 Flow Rate 2 04/21/24 08:02 04/20/24 04/21/24 04/21/24 22:59 06:59 14:59 Intake Total 360 / 1062.5 360 / 360 Output Total 400 / 400 Balance 360 / 1062.5 -400 / 662.5 360 / 360 Weight last 48 hrs Weight 51.483 kg Physical Exam 2 Narrative: Ill-appearing , Vital signs noted. HEENT normocephalic atraumatic. Neck is supple Lungs are clear Heart irregular with systolic murmur. Abdomen is soft positive bowel sounds extremities have no edema. Neuro confused. Patient was seen and examined using A/V equipment and the nurse performing physical exam as a telehealth visit. Urinary Catheter Management: Maldonado: Cath Placed During This Visit: yes Reason for Continuing Indwelling Catheter: Acute Urinary Retention or Obstruction Urinary Catheter Date of Insertion: 04/14/24 Urinary Catheter Time of Insertion: 15:29 Data 04/21/24 06:15 04/21/24 06:15 A&P Assessment and plan (1) Acute renal failure: 73-year-old lady history of COPD, myasthenia gravis, Crohn's disease, hypertension hyperlipidemia history of C. difficile colitis, patient at home on lisinopril hydrochlorothiazide potassium magnesium and Lasix. Patient has been weak and lethargic for the last few days. 2. Rule out sepsis - Note patient has history of C. difficile colitis. Would panculture. 3. Metabolic acidosis with respiratory compensation. Her anion gap is 32. Lactate is normal. Will send an ethyelene Glycol level though family denies she could have used any toxins such as antifreeze. 4. Acute kidney injury most likely ATN versus prerenal azotemia. AIN possible due to presence of + eosinophil smear , BK and rash , leukocytes in urine . As Cr is improving , will not consider high dose steroids Needs Nephrology follow up after DC Last HD done saturday UOP and Cr better , recovered kidney function, The patient's family and the patient consent to telehealth. Qualifiers: Acute renal failure type: unspecified Qualified Code(s): N17.9 - Acute kidney failure, unspecified Attestations 2 Medical Necessity Statement*: per jaclyn Coding Level of Care Code Acute Code for Chg Fwd Diagnoses Acute renal failure, unspecified acute renal failure type N17.9 Acute renal failure type: unspecified
--- NOTE | 2024-04-21 12:21 | P.DS_ITS ---
Discharge Providers Date of Admission: 04/14/24 14:58 Date of Discharge: April 21, 2024 Attending Provider at Admission: Clinton Farrell MD Attending Provider at Discharge: Clinton Farrell MD Primary Care Provider: Ariadna Cruz MD Diagnoses at Discharge Discharge Diagnosis (1) Acute renal failure: Status: Acute Qualifiers: Acute renal failure type: unspecified Qualified Code(s): N17.9 - Acute kidney failure, unspecified (2) Acute metabolic acidosis: Status: Acute (3) Hyperkalemia: Status: Acute (4) Leukocytosis: Status: Resolved (5) NSTEMI (non-ST elevated myocardial infarction): Status: Acute (6) Urinary tract infection: Status: Acute (7) Low BMI: Status: Acute (8) Sepsis: Status: Acute (9) Pneumonia: Status: Acute (10) Shock: Status: Acute (11) Severe protein-calorie malnutrition: Status: Acute (12) Physical deconditioning: Status: Acute (13) Muscle wasting: Status: Acute (14) Starvation ketoacidosis: Status: Acute (15) Weight loss: Status: Acute (16) GI bleed: Status: Acute Qualifiers: GI bleed type/associated pathology: melena Qualified Code(s): K92.1 - Melena (17) Anemia: Status: Acute (18) Clostridium difficile colitis: Status: Acute Reason for Visit Reason for Visit: SOB Brief History: - For your acute renal failure -Please have Ariadna Cruz recheck your kidney function on Saturday or Saturday, creatinine on discharge is 1.1 ? Please follow-up with urology in [place] for consideration of kidney biopsy ? Please hydrate well drink plenty of electrobalanced fluids next ?please avoid Lasix, hydrochlorothiazide/lisinopril, ibuprofen or other NSAIDs -Please follow-up with rheumatology give n positive MONICO titers -Please take potassium, phosphorus, magn esium as prescribed ? Adhere to dysphagia level 7 diet, thin liquids -Take antibiotics as prescribed -Take p.o. vancomycin as prescribed for C. difficile colitis -For your GI bleed monitor for bloody or black stools take Protonix and Carafate as prescribed Hospital Course Hospital Course Darling Gonzalez is a 73 year old female with a past medical history of COPD, myasthenia gravis, Crohn's disease, hypertension, hyperlipidemia, history of C. difficile who presents [facility] for fatigue, malaise, shortness of breath. Patient presents with sister, she tells me that about on Saturday, patient had spent a prolonged period of time in her car, she thinks she might of developed a heatstroke. But she never came to the emergency room, over the weekend she continued to have fatigue, malaise, complaints of shortness of breath, poor appetite. She does use Lasix, and lisinopril/hydrochlorothiazide however is not using more than prescribed ? BUN of 200, creatinine over 13, pH of 7.05, bicarb of 5, anion gap 30.4, blood sugar 133, troponin 115, potassium 6.4, EKG showing peaked T waves ? In the emergency room she received insulin, D50, calcium chloride, receiving IV fluids, sodium bicarb -She is alert, awake, tachypneic, tachycardic, normotensive, on room air, hypothermic -Spoke to ER provider, concerns for hyperkalemia, metabolic acidosis, acute renal failure, ? Spoke to nephrology, for concerns for electrolyte abnormalities with acute renal failure, plan on trial of fluid therapy with repeat BMP to decide if she would need dialysis ? Patient is receiving fluid therapy, sodium bicarb ? Patient in the ER was reexamined, patient had developed of ventricular arrhythmia, and looks like V-fib on the prior note, she is alert, awake, normotensive, tachycardic heart rates in the 110s, alert to person, to place, not to time, does report feeling unwell ? Given patient's developing ventricular arrhythmia, metabolic acidosis, acute renal failure, hyperkalemia she has received all medical therapy for hyperkalemia including calcium gluconate, sodium bicarb, insulin, D50, albuterol decision was made to proceed with dialysis ? Spoke to patient and sister at bedside about urgent need for dialysis, patient's status is critical, prognosis is guarded, dialysis would help correct electrolyte abnormalities, correct hyperkalemia, currently what is life- threatening is her developing ventricular arrhythmias with her acute renal failure, metabolic acidosis, and hyperkalemia resistant to medical therapy ? After discussing with them the risk and benefits of urgent dialysis, they voiced understanding, all question answered, shared decision making, agreed to proceed ? Discussed goals of care patient is a full code ? Spoke to ER provider plan for urgent dialysis, agreeable to proceed ? Spoke to general surgery, plan urgent dialysis catheter placements, agreed to hold to proceed ? Spoke to nephrology about patient's critical status, developing ventricular arrhythmias plan on urgent dialysis, ? Patient received dialysis catheter, seen in the intensive care unit, femoral dialysis catheter has been placed -she is hypotensive, will give 1 amp bicarb, will give 1L normal saline -Reexamined, patient MAP is consistently below 65, will start her on Levophed, concern for septic shock, with UTI, pneumonia, order for PICC line placed, CT chest abdomen pelvis without contrast, continue bicarbonate drip, vancomycin, Zosyn ordered Patient had a prolonged and complicated hospital course, please look at my last progress note for further detail Patient was admitted to [facility] for acute renal failure with hyperkalemia, requiring urgent dialysis, hyperkalemia resolved with acute dialysis catheter placement, and acute dialysis For acute renal failure Acute renal failure -etiology ? Perhaps of dehydration, a combination of Lasix, and her home blood pressure medications ? Does have evidence of UTI, CT abdomen pelvis no obstructive uropathy ? Serum ketones are positive, could be starvation ketosis her BMI is 17 -A1c within normal limits ? Urine eosinophils are positive could be acute interstitial nephritis? 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 ? Her lupus antigens are positive -Given history of myasthenia gravis, will hold off on high-dose steroids and committing her to a prolonged dose of steroids as creatinine is improving -She will likely need a renal biopsy and nephrology follow-up as outpatient -Patient required several sessions of inpatient dialysis to help with the uremia, acute renal failure, her hyperkalemia, ? Patient's kidney function improved, urine output improved, Maldonado catheter removed, dialysis catheter removed ? On discharge patient is to avoid any NSAIDs, stop lisinopril, stop hydrochlor othiazide/lisinopril -Patient was advised to drink plenty electrolyte balance fluids ? In terms of the etiology I am still suspicious that she has some component of interstitial nephritis/possible dress syndrome as or even glomerulonephritis, however given her rapid renal function improvement, rapidly improving urine output, we avoided steroids due to the risk of her developing myasthenia crisis ? Nonetheless primary care should monitor kidney function as outpatient She should follow-up with the nephrology as outpatient, for consideration of kidney biopsy Patient hospital course was complicated by metabolic acidosis, increased anion gap, complicated by metabolic acidosis, increased anion gap, leukocytosis, septic shock, sepsis, secondary to UTI, pneumonia, requiring pressors, IV antibiotics, overall clinically improved, pressor requirements resolved, antibiotics were de-escalated Patient's hospital course was complicated with C. difficile colitis, discharged on p.o. vancomycin Patient hospital course was complicated by GI bleed, status post EGD, requiring Protonix, Carafate, findings of esophagitis, biopsies taken, follow-up with general surgery for results, discharged on Protonix, Carafate, instructions to avoid food and drink with high acidity like orange juice For her low BMI, physical deconditioning, protein calorie malnutrition, she was monitored for refeeding syndrome,. She did require IV replacement of potassium, phosphorus, p.o. magnesium, she will be discharged on potassium, phosphorus, magnesium replacement therapy, slowly advance diet, follow-up with primary care provider as outpatient +ve lupus titers, weight loss, renal failure, follow up with rheumatology for consideration for treatment of lupus, possible lupus nephritis. Physical Exam Const: COMMON NORMALS: no acute distress and patient oriented x3 Resp: COMMON NORMALS: normal respiratory effort, No retractions, No use of accessory muscles and clear to auscultation bilaterally AUSCULTATION: clear to auscultation bilaterally Cardio: COMMON NORMALS: regular rate, regular rhythm, S1 normal heart sound present and S2 normal heart sound present RATE: regular rate RHYTHM: regular rhythm HEART SOUNDS: S1 normal heart sound present and S2 normal heart sound present GI: COMMON NORMALS: Normal to inspection, nondistended, normoactive bowel sounds present and non-tender Extremity: COMMON NORMALS: no pedal edema Neuro: COMMON NORMALS: patient oriented x3 Psych: COMMON NORMALS: mental status grossly normal Urinary Catheter Management: Maldonado: Cath Placed During This Visit: yes Reason for Continuing Indwelling Catheter: Acute Urinary Retention or Obstruction Urinary Catheter Date of Insertion: 04/14/24 Urinary Catheter Time of Insertion: 15:29 Discharge Data Studies Completed and Pending Completed Studies During Hospitalization Category Date Time Status CT chest abdomen pelvis [[place] [id number] Cat Scan 04/14/24 14:38 Completed ] Stat CXRP [XR chest 1V portable [id number]] Routine Exams 04/14/24 19:24 Completed XR chest 1V portable [id number] Stat Exams 04/14/24 13:05 Completed CV. echo complete* [id number] Routine Ultrasound 04/14/24 19:35 Completed US renal BI* [id number] Routine Ultrasound 04/14/24 15:20 Completed Pending at discharge Category Date Time Status ANCA [Anti-Neutrophil Cytoplasmic AB] Routine Lab 04/17/24 13:28 Results Basic Metabolic Panel AM LABS Lab 04/22/24 04:00 Ordered Basic Metabolic Panel AM LABS Lab 04/23/24 04:00 Ordered Complete Blood Count w/Auto AM LABS Lab 04/22/24 04:00 Ordered Complete Blood Count w/Auto AM LABS Lab 04/23/24 04:00 Ordered SS A Ro Sjogrens Antibody Routine Lab 04/17/24 13:28 Results SS-B/LA Antibody IGG Routine Lab 04/17/24 13:28 Results Pathology: Surgical [PTH] Routine Pth 04/16/24 14:09 Received Radiology Impressions Chest/Abdomen/Pelvis CT 04/14/24 14:38 IMPRESSION: 1. Bibasilar fibrotic changes with suggested superimposed right basilar pneumonia or pneumonitis. 2. Two left upper lobe nodules, the larger measuring up 12 mm. See comments section for Fleischner follow-up recommendations. 3. Other nonemergent findings above. IMPRESSION: 1. No acute intra-abdominal or pelvic process. 2. Other nonemergent findings above. Renal Ultrasound 04/14/24 15:20 IMPRESSION: Normal renal ultrasound. No renal obstruction. Chest X-Ray 04/14/24 19:24 IMPRESSION: New right upper extremity PICC with the distal tip in the region of the cavoatrial junction. Laboratory Results WBC 9.09 10^3/uL (3.29-11.43) 04/21/24 06:15 RBC 3.02 10^6/uL (3.85-5.65) L 04/21/24 06:15 Hgb 9.10 g/dL (11.27-16.99) L 04/21/24 06:15 Hct 32.7 % (36-47) L 04/21/24 06:15 MCV 108.3 fl (85-98) H D 04/21/24 06:15 MCH 30.1 pg (27-33) 04/21/24 06:15 MCHC 27.8 g/dL (30-55) L D 04/21/24 06:15 RDW 14.0 % (12.1-15.1) 04/21/24 06:15 Plt Count 198 10^3/cmm (157-399) 04/21/24 06:15 MPV 9.7 fL (7.4-10.4) 04/21/24 06:15 Neut % (Auto) 62.7 % 04/21/24 06:15 Lymph % (Auto) 13.2 % 04/21/24 06:15 [place] % (Auto) 7.3 % 04/21/24 06:15 Eos % (Auto) 15.1 % 04/21/24 06:15 Baso % (Auto) 0.7 % 04/21/24 06:15 Neut # (Auto) 5.71 10^3/uL (1.8-7.7) 04/21/24 06:15 Lymph # (Auto) 1.2 10^3/uL (0.8-4.8) 04/21/24 06:15 [place] # (Auto) 0.7 10^3/uL (0.2-0.9) 04/21/24 06:15 Eos # (Auto) 1.4 10^3/uL (0.0-0.8) H 04/21/24 06:15 Baso # (Auto) 0.1 10^3/uL (0.0-0.1) 04/21/24 06:15 Nucleated RBC % (auto) 0 % 04/21/24 06:15 Nucleated RBCs # 0.0 /100WBC 04/21/24 06:15 ESR 24 mm/hr (0-15) H 04/15/24 03:36 PT 13.30 SECONDS (12.1-14.9) 04/16/24 09:37 INR 0.98 (0.8-1.2) 04/16/24 09:37 Specimen Type Arterial 04/14/24 16:55 Sample Site Lr 04/14/24 16:55 ABG pH 7.24 (7.35-7.45) L 04/14/24 16:55 ABG pCO2 22.4 mmHg (35-45) L 04/14/24 16:55 ABG pO2 64.3 mmHg (80.0-100.0) L 04/14/24 16:55 ABG PO2/FiO2 Ratio 429 04/14/24 13:42 ABG HCO3 9.7 mmol/L (22-26) L 04/14/24 16:55 ABG O2 Saturation 92.0 04/14/24 16:55 ABG Base Excess -16.1 mmol/L (-2.0-2.0) L 04/14/24 16:55 Renard Test Pos 04/14/24 16:55 A-a O2 Gradient 7.2 mmHg (5-10) 04/14/24 16:55 Hematocrit 27.7 % (37-47) L 04/14/24 16:55 Hgb O2 Saturation 90.4 % (95-100) L 04/14/24 16:55 Carboxyhemoglobin 1.0 %THgb (0.4-20.1) 04/14/24 16:55 Methemoglobin 0.6 % (0.4-1.5) 04/14/24 16:55 Total Hemoglobin 9.0 g/dL (12-16) L 04/14/24 16:55 Sodium 151.0 mmol/L (131-143) H 04/14/24 16:55 Potassium 4.0 mmol/L (3.5-5.0) 04/14/24 16:55 Glucose 157.0 mg/dL (70-115) H 04/14/24 16:55 Ionized Calcium 1.2 mmol/L (1.1-1.4) 04/14/24 16:55 O2 Delivery Device Ra 04/14/24 16:55 FiO2 21.0 % 04/14/24 13:42 Dedicated Regional Driver ID [id number] 04/14/24 16:55 Sodium 142 mmol/L (136-145) 04/21/24 06:15 Potassium 3.3 mmol/L (3.5-5.1) L 04/21/24 06:15 Chloride 109 mmol/L (98-107) H 04/21/24 06:15 Carbon Dioxide 21 mmol/L (22-29) L 04/21/24 06:15 Anion Gap 15.3 (5-19) 04/21/24 06:15 BUN 9 mg/dL (8-23) 04/21/24 06:15 Creatinine 1.1 mg/dL (0.5-0.9) H 04/21/24 06:15 GFR Calculation Not Reportable 04/21/24 06:15 Glucose 87 mg/dL (65-115) 04/21/24 06:15 POC Glucose 118 mg/dL (70-110) H 04/20/24 20:49 Estimat Average Glucose 120 04/14/24 13:29 Hemoglobin A1c 5.8 % (4.0-6.0) 04/14/24 13:29 Specific [place] Not Reportable 04/14/24 15:27 Calculated Osmolality 292 mOsm/kg (285-295) 04/21/24 06:15 Lactic Acid 1.2 mmol/L (0.5-2.2) 04/14/24 14:24 Uric Acid 9.4 mg/dL (2.4-5.7) H 04/14/24 15:46 Calcium 6.6 mg/dL (8.5-10.5) L 04/21/24 06:15 Phosphorus 1.8 mg/dL (2.5-4.5) L 04/20/24 04:26 Magnesium 1.0 mg/dL (1.7-2.3) L 04/20/24 04:26 Iron 68 ug/dL (37-145) 04/15/24 03:36 TIBC 106 mcg/dl 04/15/24 03:36 % Saturation 64.1 % (20-50) H 04/15/24 03:36 Unsat Iron Binding 38 ug/dL (112-347) L 04/15/24 03:36 Ferritin 430 ng/mL (15-150) H 04/15/24 03:36 Total Bilirubin 0.3 mg/dL (0.15-1.2) 04/20/24 04:26 AST 15 U/L (0-32) 04/20/24 04:26 ALT 9 U/L (0-33) 04/20/24 04:26 Alkaline Phosphatase 51 U/L (35-105) 04/20/24 04:26 Creatine Kinase 104 U/L (26-192) 04/14/24 15:46 Troponin T Baseline 115 ng/L (0-10) H* 04/14/24 13:29 Troponin T 120 Minute 92.79 ng/L (0-10) H 04/14/24 15:46 Delta Troponin T -22.21 ABS# (0-10) L 04/14/24 15:46 Troponin T Hi Sens 6Hr 93.28 ng/L (0-10) H 04/14/24 19:36 Troponin T Hi Sens 6Hr Delta -21.72 ng/L (0-12) L 04/14/24 19:36 C-Reactive Protein 8.8 mg/L (0.0-4.9) H 04/20/24 04:26 NT-Pro-B Natriuret Pep 3629 pg/mL (0-125) H 04/20/24 04:26 Total Protein 5.1 g/dL (6.6-8.7) L 04/20/24 04:26 Albumin 2.6 g/dL (3.5-5.2) L 04/20/24 04:26 Globulin 2.5 g/dL (1.3-4.6) 04/20/24 04:26 Lipase 159 U/L (13-60) H 04/14/24 13:29 25-OH Vitamin D Total 15 ng/mL (30-100) L 04/15/24 03:36 Procalcitonin 0.26 ng/mL (0-0.5) 04/20/24 04:26 TSH 4.73 uIU/mL (0.27-4.20) H 04/14/24 13:29 PTH Intact 102.6 pg/mL (15-65) H 04/15/24 03:36 Calcium (PTH Intact) 7.7 mg/dL (8.5-10.5) L 04/15/24 03:36 Urine Color Dark yellow (Yellow) A 04/14/24 15:27 Urine Appearance Cloudy (CLEAR) A 04/14/24 15:27 Urine pH 5 (5-7) 04/14/24 15:27 Urine pH 7.0 (4.5-9.0) 04/14/24 15:27 Ur Specific [place] 1.015 (1.005-1.030) 04/14/24 15:27 Urine Protein 3+ (Negative) H 04/14/24 15:27 Urine Glucose (UA) Norm (Normal) 04/14/24 15:27 Urine Ketones 1+ (Negative) H 04/14/24 15:27 Urine Blood 2+ (Negative) H 04/14/24 15:27 Urine Nitrate Negative (Negative) 04/14/24 15:27 Urine Bilirubin Neg (Negative) 04/14/24 15:27 Urine Urobilinogen Norm mg/dL (Negative) 04/14/24 15:27 Ur Leukocyte Esterase 2+ (Negative) H 04/14/24 15:27 Urine RBC 10-15 /hpf (0-2) H 04/14/24 15:27 Urine WBC 25-40 /hpf (0-5) H 04/14/24 15:27 Ur Eosinophil Smear 1 (0-0) H 04/14/24 15:27 Ur Squamous Epith Cells 0-4 /hpf (0-5) H 04/14/24 15:27 Ur Transition Epith Cell 0-4 /hpf 04/14/24 15:27 Amorphous Sediment Trace /hpf 04/14/24 15:27 Urine Bacteria 2+ /hpf (NONE) H 04/14/24 15:27 Urine Mucus 2+ /hpf 04/14/24 15:27 Urine Eosinophils Eosinophils seen H 04/14/24 15:27 Ur Random Creatinine 65 mg/dL (20-275) 04/15/24 03:35 Ur Random Albumin 16 % 04/15/24 03:35 U Random Total Protein 121 mg/dL (5-24) H 04/15/24 03:35 Ur Random Sodium 80 mmol/L 04/14/24 15:27 Ur Random Potassium 32 mmol/L 04/14/24 15:27 Ur Random Chloride 61 mmol/L 04/14/24 15:27 Urine Creatinine 114 mg/dL (28-217) 04/14/24 15:27 Protein/Creatinin Ratio 1862 mg/g creat (24-184) H 04/15/24 03:35 Protein/Creat Ratio 24h 1.862 (0.024-0.184) H 04/15/24 03:35 U Random g-0-Myxohydv % 20 % 04/15/24 03:35 U Random q-8-Itawwczz % 24 % 04/15/24 03:35 U Random Beta Globulin 28 % 04/15/24 03:35 U Random Gamma Glob 11 % 04/15/24 03:35 U Abnormal Prot Band 1 25 mg/dL (NONE DETECTED) H 04/15/24 03:35 U Abnormal Prot Band 2 Not Reportable 04/15/24 03:35 U Abnormal Prot Band 3 Not Reportable 04/15/24 03:35 Urine PEP Interpret See note 04/15/24 03:35 Urine Oxidant Negative mcg/mL (<200) 04/14/24 15:27 Salicylates < 0.3 mg/dL (3-10) L 04/14/24 15:46 Urine Opiates Level Negative ng/mL (<100) 04/14/24 15:27 Urine Oxycodone Negative ng/mL (<100) 04/14/24 15:27 U Methadone Metabolites Negative ng/mL (<100) 04/14/24 15:27 Acetaminophen < 5.0 ug/mL (10-30) L 04/14/24 15:46 Barbiturates Negative ng/mL (<300) 04/14/24 15:27 Phencyclidine (PCP) Negative ng/mL (<25) 04/14/24 15:27 Amphetamines Negative ng/mL (<500) 04/14/24 15:27 Benzodiazepines Negative ng/mL (<100) 04/14/24 15:27 Cocaine Metabolite Negative ng/mL (<150) 04/14/24 15:27 U Marijuana Metabolites Negative ng/mL (<20) 04/14/24 15:27 Abn Spec Valid Drug Scn Not Reportable 04/14/24 15:27 Urine Drug Screen Note See note 04/14/24 15:27 Ur Drug Screen Comment See note 04/14/24 15:27 Ethylene Glycol <10.0 mg/L () 04/16/24 09:37 Serum Ketones Positive (Negative) H 04/14/24 13:29 MONICO Screen Positive (NEGATIVE) A 04/14/24 15:58 MONICO Titer 1:1280 titer H 04/14/24 15:58 MONICO Pattern Nuclear, homogeneous A 04/14/24 15:58 ANCA Screen Negative (NEGATIVE) 04/14/24 15:58 ANCA Titer Not Reportable 04/14/24 15:58 SS-A/Ro Antibody <1.0 neg AI (<1.0 NEG) 04/17/24 13:28 SS-B/La IgG Antibody <1.0 neg AI (<1.0 NEG) 04/17/24 13:28 Sm (Levy) Antibody <1.0 neg AI (<1.0 NEG) 04/17/24 13:28 Anti-ds DNA IgG Ab 1 IU/mL 04/17/24 13:28 Complement C3 110 mg/dL (90-180) 04/14/24 15:46 Complement C4 30 mg/dL (10-40) 04/14/24 15:46 Adenovirus (PCR) Not detected (NOT DETECT) 04/14/24 13:59 C. pneumoniae DNA (PCR) Not detected (NOT DETECT) 04/14/24 13:59 C. difficile (PCR) Positive (Negative) H 04/17/24 21:00 C.difficile Tox Confrm Negative (Negative) 04/17/24 21:00 Coronavirus 229E (PCR) Not detected (NOT DETECT) 04/14/24 13:59 Hep Bs Antigen Non-reactive (Nonreactive) 04/14/24 15:46 Hep Bs Antibody < 3.5 (11.5-1000) L 04/14/24 15:58 Hepatitis C Antibody Non-reactive (Nonreactive) 04/14/24 15:58 HIV 1&2 Ab & HIV 1 Ag Non-reactive (Non-Reactiv) 04/15/24 03:36 HIV 1&2 Antibody Non-reactive (Non-Reactiv) 04/15/24 03:36 Human Metapneumovir PCR Not detected (NOT DETECT) 04/14/24 13:59 Influenza A (H1) PCR Not detected (NOT DETECT) 04/14/24 13:59 Influ A (H1/09) PCR Not detected (NOT DETECT) 04/14/24 13:59 Influenza A (H3) PCR Not detected (NOT DETECT) 04/14/24 13:59 Influenza Type A (PCR) Not detected (NOT DETECT) 04/14/24 13:59 Influenza Type B (PCR) Not detected (NOT DETECT) 04/14/24 13:59 M. pneumoniae (PCR) Not detected (NOT DETECT) 04/14/24 13:59 Parainfluenza 1 (PCR) Not detected (NOT DETECT) 04/14/24 13:59 Parainfluenza 2 (PCR) Not detected (NOT DETECT) 04/14/24 13:59 Parainfluenza 3 (PCR) Not detected (NOT DETECT) 04/14/24 13:59 Parainfluenza 4 (PCR) Not detected (NOT DETECT) 04/14/24 13:59 RSV Type A (PCR) Not detected (NOT DETECT) 04/14/24 13:59 RSV Type B (PCR) Not detected (NOT DETECT) 04/14/24 13:59 Entero/Rhino (PCR) Not detected (NOT DETECT) 04/14/24 13:59 SARS-CoV-2 (PCR) Not detected (NOT DETECT) 04/14/24 13:59 Vitals Last Vital Signs Temp 97.5 F L 04/21/24 11:49 Pulse 84 04/21/24 11:49 Resp 17 04/21/24 11:49 BP 106/61 04/21/24 11:49 Pulse Ox 96 04/21/24 11:49 O2 Del Method Room Air 04/21/24 11:49 O2 Flow Rate 2 04/21/24 08:02 Discharge Plan Discharge Patient Disposition: Home Condition: Stable Prescriptions: New amoxicillin-pot clavulanate 875-125 mg Tablet 1 tab PO BID 5 Days Qty: 10 0RF Magtab 84 mg Tablet Extended Release 84 mg PO Q12H 30 Days Qty: 60 0RF Phospha 250 Neutral 250 mg Tablet 1 tab PO BID 30 Days Qty: 60 0RF vancomycin 125 mg Capsule 125 mg PO Q6H 7 Days Qty: 28 0RF Klor-Con M20 20 mEq Tablet,Er Particles/Crystals 20 meq PO DAILY 30 Days Qty: 30 0RF Protonix 40 mg tablet,delayed release (DR/EC) 40 mg PO BID 30 Days Qty: 60 0RF Carafate 1 gram tablet 1 g PO BID 28 Days Qty: 56 0RF Continued cholecalciferol (vitamin D3) 1,250 mcg (50,000 unit) capsule 1,250 mcg PO Q30D Qty: 30 3RF pyridostigmine bromide 60 mg tablet 60 mg PO QID 90 Days Qty: 360 3RF betamethasone dipropionate 0.05 % ointment 1 applic topical DAILY Qty: 45 0RF hydroxyzine HCl 25 mg tablet 25 mg PO TID PRN (Reason: itching) Qty: 30 2RF krill oil 500 mg capsule 500 mg PO DAILY Qty: 90 4RF Spiriva with HandiHaler 18 mcg capsule, w/inhalation device 1 cap inhalation DAILY Qty: 60 4RF Rx Instructions: puncture 1 cap using device; one dose = 2 inhalations calcium carbonate 600 mg calcium (1,500 mg) tablet 600 mg PO DAILY Qty: 30 3RF folic acid 1 mg tablet 1 mg PO DAILY Qty: 30 3RF acetaminophen 650 mg tablet extended release 650 mg PO Q8H PRN (Reason: pain) Qty: 30 0RF Dulera 200-5 mcg/actuation HFA aerosol inhaler 2 puff inhalation BID atorvastatin 20 mg tablet 20 mg PO QPM Discontinued lisinopril-hydrochlorothiazide 20-12.5 mg tablet 1 tab PO BID Qty: 180 3RF Hold Instructions: Resume on 02/22/24. furosemide 20 mg tablet 20 mg PO DAILY Qty: 30 3RF Hold Instructions: Resume on 02/22/24. mesalamine 1.2 gram tablet,delayed release (DR/EC) 2.4 g PO BID loperamide [Imodium A-D] 2 mg Tablet 2 mg PO Q6H PRN (Reason: Diarrhea) potassium chloride [Klor-Con M20] 20 mEq Tablet,Er Particles/Crystals 40 meq PO DAILY Qty: 3 0RF magnesium oxide 400 mg (241.3 mg magnesium) Tablet 400 mg PO BID Qty: 10 0RF Discharge Orders: Discharge Order (Routine); Ordered 04/21/24 Ordered By: Clinton Farrell Referrals: Brijesh Rios DO [Physician] - 2 weeks (We have notified your physician's clinic of the need for a follow-up appointment to be scheduled. If you have not heard from them within the next 2 business days, please call them directly. ) Grady Bah MD [Referring] - 1-3 days (acute renal failure, needs kidney biopsy We have notified your physician's clinic of the need for a follow-up appointment to be scheduled. If you have not heard from them within the next 2 business days, please call them directly. ) Kory Lew MD [Physician] - 1 month Ariadna Cruz MD [Primary Care Provider] - 1-3 days (We have notified your physician's clinic of the need for a follow-up appointment to be scheduled. If you have not heard from them within the next 2 business days, please call them directly. ) Discharge Diet: As Directed Discharge Activity: Resume usual activity Patient Instructions: Amoxicillin/Clavulanate Potassium (By mouth), Vancomycin (By mouth), C. Diff (Clostridioides Difficile) Infection (GEN), GI Discharge Instructions, Opioid Safety Activity Restrictions/Additional Instructions: - For your acute renal failure -Please have Ariadna Cruz recheck your kidney function on Saturday or Saturday, creatinine on discharge is 1.1 ? Please follow-up with urology in [place] for consideration of kidney biopsy ? Please hydrate well drink plenty of electrobalanced fluids next ?please avoid Lasix, hydrochlorothiazide/lisinopril, ibuprofen or other NSAIDs -Please follow-up with rheumatology given positive MONICO titers -Please take potassium, phosphorus, magnesium as prescribed ? Adhere to dysphagia level 7 diet, thin liquids -Take antibiotics as prescribed -Take p.o. vancomycin as prescribed for C. difficile colitis -For your GI bleed monitor for bloody or black stools take Protonix and Carafate as prescribed Discharge Attestations Time Spent in Discharge Care*: greater than 30 min Quality Metrics Clinical Quality Measures [ No reported AMI, CVA or VTE this stay] Coding Level of Care Code 20731 Total time (in minutes) for Discharge: 45 Diagnoses Acute renal failure, unspecified acute renal failure type N17.9 Acute renal failure type: unspecified Acute metabolic acidosis E87.21 Hyperkalemia E87.5 Leukocytosis D72.829 NSTEMI (non-ST elevated myocardial infarction) I21.4 Urinary tract infection N39.0 Low BMI Sepsis A41.9 Pneumonia J18.9 Shock R57.9 Severe protein-calorie malnutrition E43 Physical deconditioning R53.81 Muscle wasting M62.50 Starvation ketoacidosis T73.0XXA; E87.29 Weight loss R63.4 Gastrointestinal hemorrhage with melena K92.1 GI bleed type/associated pathology: melena Anemia D64.9 Clostridium difficile colitis A04.72
[2024-04-22 14:33] LABS: ANCA Screen NEGATIVE (NEGATIVE)
== END 2024-04-21 12:51 | disposition home or self-care (01) | DRG 871 ==
LOC: ER 14:41 → ICU 14:59 → MEDSURG 04-19 16:40
PROVIDERS: Internal Medicine Nephrology; Specialist; Admitting Provider Family Medicine; Emergency Provider Family Medicine; PCP Family Medicine; Visit Provider Family Medicine
PROC: 0DJ08ZZ Inspection of Upper Intestinal Tract, Via Natural or Artificial Opening Endoscopic (ICD-10-PCS; CPT 43235; principal; 2024-04-16 13:00)
DX: A41.9 Sepsis, unspecified organism (principal); E43 Unspecified severe protein-calorie malnutrition; J18.9 Pneumonia, unspecified organism; N17.0 Acute kidney failure with tubular necrosis; R65.21 Severe sepsis with septic shock; K22.11 Ulcer of esophagus with bleeding; I21.4 Non-ST elevation (NSTEMI) myocardial infarction; K50.90 Crohn's disease, unspecified, without complications; E87.21 Acute metabolic acidosis; J98.11 Atelectasis; Z68.1 Body mass index [BMI] 19.9 or less, adult; A04.72 Enterocolitis due to Clostridium difficile, not specified as recurrent; N39.0 Urinary tract infection, site not specified; I47.20 Ventricular tachycardia, unspecified; J44.9 Chronic obstructive pulmonary disease, unspecified; G70.00 Myasthenia gravis without (acute) exacerbation; I10 Essential (primary) hypertension; E78.5 Hyperlipidemia, unspecified; E87.5 Hyperkalemia; E86.0 Dehydration; D72.10 Eosinophilia, unspecified; M62.50 Muscle wasting and atrophy, not elsewhere classified, unspecified site; R63.4 Abnormal weight loss; E87.6 Hypokalemia; E83.39 Other disorders of phosphorus metabolism; D64.9 Anemia, unspecified; K44.9 Diaphragmatic hernia without obstruction or gangrene; I49.3 Ventricular premature depolarization; R25.1 Tremor, unspecified
CPT/HCPCS: 36415; 36416; 36573; 36592; 36600; 43239; 51702; 71045; 71250; 74176; 76770; 80048; 80051; 80053; 80307; 81001; 82009; 82274; 82306; 82310; 82330; 82436; 82550; 82570; 82693; 82728; 82805; 82962; 83036; 83540; 83550; 83605; 83690; 83735; 83880; 83970; 84100; 84133; 84145; 84156; 84166; 84300; 84443; 84484; 84550; 85014; 85018; 85025; 85610; 85651; 85999; 86036; 86038; 86140; 86160; 86225; 86235; 86706; 86803; 87040; 87086; 87324; 87340; 87486; 87493; 87581; 87633; 87806; 88305; 88342; 90935; 92523; 92526; 92610; 93005; 93306; 94640; 94664; 96365; 96367; 96372; 96375; 96376; 97116; 97161; 97165; 99285; 99291; 99292; C1751; C9113; J1644; J1815; J2270; J2543; J2704; J3010; J3370; J3475; J3480; J3490; J7030; J7060; J7070; J7120; J7613

== ENCOUNTER → 2024-04-23 12:06 | Outpatient (BNVA) | payer MEDICARE, SELFPAY | PROVIDERS: PCP Family Medicine; Visit Provider Family Medicine | DX: N17.9 Acute kidney failure, unspecified (principal) | CPT/HCPCS: 80053 ==

== ENCOUNTER → 2024-04-24 08:19 | Outpatient (BNVA) | payer MEDICARE, SELFPAY | PROVIDERS: PCP Family Medicine; Visit Provider Nurse Practitioner Family | DX: L27.0 Generalized skin eruption due to drugs and medicaments taken internally (principal) | CPT/HCPCS: 99214 ==

== ENCOUNTER → 2024-05-27 08:12 | Outpatient (BNVA) | payer MEDICARE, SELFPAY | PROVIDERS: PCP Family Medicine; Visit Provider Surgery | DX: K21.9 Gastro-esophageal reflux disease without esophagitis (principal) | CPT/HCPCS: 99203; 99213 ==

== ENCOUNTER → 2024-06-09 14:19 | Outpatient (BNVA) | payer MEDICARE, SELFPAY | PROVIDERS: PCP Family Medicine; Visit Provider Dermatology | DX: L30.9 Dermatitis, unspecified (principal); L85.3 Xerosis cutis; L27.0 Generalized skin eruption due to drugs and medicaments taken internally | CPT/HCPCS: 11104; 99214 ==

== ENCOUNTER → 2024-06-22 10:54 | Outpatient (BNVA) | payer MEDICARE, SELFPAY | PROVIDERS: PCP Family Medicine; Visit Provider Dermatology | DX: L23.5 Allergic contact dermatitis due to other chemical products (principal) | CPT/HCPCS: 99213 ==

== ENCOUNTER 2024-06-23 07:59 | Outpatient (CLI) | payer MEDICARE, SELFPAY ==
--- NOTE | 2024-06-23 08:15 | US_ITS ---
WS: [id number] INDICATION: Enlarged lymph node TECHNIQUE: Ultrasound the RIGHT neck area of concern. FINDINGS: Abnormal hypoechoic ovoid masslike nodule in the area of concern measuring 2.5 x 2.1 x 1.8 cm. This m ay resent an abnormal enlarged lymph node or submandibular mass. Recommend further evaluation with co ntrast-enhanced neck CT. In addition adjacent enlarged submandibular lymph node measures 1.4 x 1.3 x 1.4 cm. US/US soft tissue head neck [id number] IMPRESSION: Abnormal enlarged lymph node or nodule measuring up to 2.5 cm in th e area of concern. Neoplasm is a consideration. Recommend further evaluation wi th contrast-enhanced neck CT.
== END 2024-06-23 08:00 | disposition home or self-care (01) ==
LOC: RAD 08:00
PROVIDERS: PCP Family Medicine; Visit Provider Nurse Practitioner Family
DX: R59.0 Localized enlarged lymph nodes (principal)
CPT/HCPCS: 76536

== ENCOUNTER → 2024-06-29 10:46 | Outpatient (BNVA) | payer MEDICARE, SELFPAY | PROVIDERS: PCP Family Medicine; Visit Provider Dermatology | DX: L23.5 Allergic contact dermatitis due to other chemical products (principal) | CPT/HCPCS: 99214 ==

== ENCOUNTER → 2024-07-03 11:56 | Outpatient (BNVA) | payer MEDICARE, SELFPAY | PROVIDERS: PCP Family Medicine; Visit Provider Nurse Practitioner Family | DX: I10 Essential (primary) hypertension (principal); G56.03 Carpal tunnel syndrome, bilateral upper limbs | CPT/HCPCS: 80053; 84443; 85025; 85651; 86140 ==

== ENCOUNTER 2024-07-06 10:31 | Inpatient (IN) | payer MEDICARE, SELFPAY ==
[2024-07-06] VITALS (16 sets, daily range): BP systolic 122–169; BP diastolic 66–103; PULSE 80–998; RESP 17–19; TEMP 36.3–36.4; O2SAT 91–100; BMI 20.5; BMI 19.4
--- NOTE | 2024-07-06 10:35 | ECG_ITS ---
[facility] Test Date: 2024-07-06 Pat Name: Darling Gonzalez Department: Room: Gender: Female Peer Support Specialist: : 1950 Requested By: Jf Aguilar Order Number: [id number] Tori MD: Diamond Reeves M.D. Measurements Intervals [place] Rate: 88 P: 101 FL: 187 QRS: 93 QRSD: 67 T: 101 QT: 352 QTc: 427 Interpretive Statements SINUS RHYTHM BORDERLINE RIGHT AXIS DEVIATION [QRS AXIS > 90] LOW QRS VOLTAGE IN PRECORDIAL LEADS [QRS DEFLECTION < 1.0 mV IN CHEST LEADS] ANTEROSEPTAL MYOCARDIAL INFARCTION , OF INDETERMINATE AGE [40+ ms Q WAVE IN V1-V4] Compared to ECG 04/15/2024 14:18:39 No significant changes Electronically Signed On 07-07-2024 01:21:47 CDT by Diamond Reeves M.D. [email or web address]/[id number] f
--- NOTE | 2024-07-06 11:01 | XRR_ITS ---
PROCEDURE INFORMATION: Exam: XR Chest Exam date and time: 07/06/2024 11:23 AM Age: 73 years old Clinical indication: Cough and dyspnea; Additional info: Dyspnea/cough TECHNIQUE: Imaging protocol: Radiologic exam of the chest. Views: 1 view. COMPARISON: CT chest abdpel [id number] 04/14/2024 11:51 PM FINDINGS: Lungs: Bibasilar scarring. Severe emphysema. No new findings. No focal consolidation. Pleural spaces: Trace bilateral pleural effusions. Heart/Mediastinum: No cardiomegaly. Bones/joints: Unremarkable. XR/XR chest 1V portable [id number] IMPRESSION: No interval change.
--- NOTE | 2024-07-06 11:31 | ED_ITS ---
HPI - SOB/Dyspnea 2 General: Chief Complaint: Shortness of Breath/Dyspnea Stated Complaint: SOB Time Seen by Provider: 07/06/24 10:44 History of Present Illness: HPI Narrative: 73-year-old female presents to the [facility] room with complaints of shortness of breath progressively worsening the last couple days she has tried to nebulizer treatments several times but has not had any improvement of her symptoms. She does not normally use oxygen on presentation here she is not requiring 3 L maintaining her oxygen saturation she denies chest pain, she has noticed increasing shortness of breath with exertion the last couple of days. She has noticed a little bit of swelling in her legs. No productive cough no fever. Associated symptoms: Reports chest congestion and orthopnea; Deny abdominal pain, chest pain or fever(s) Related Data Home Medications Medication Instructions Recorded Confirmed atorvastatin 20 mg tablet 20 mg PO QPM 02/14/24 07/06/24 betamethasone dipropionate 0.05 % 1 applic topical PRN PRN Itching 07/06/24 07/06/24 topical ointment Previous Rx's Medication Instructions Recorded krill oil 500 mg capsule 500 mg PO DAILY #90 caps 11/03/20 cholecalciferol (vitamin D3) 1,250 1,250 mcg PO Q30D #30 caps 08/15/23 mcg (50,000 unit) capsule calcium carbonate 600 mg PO DAILY #30 tabs 01/28/24 folic acid 1 mg tablet 1 mg PO DAILY #30 tabs 01/28/24 pyridostigmine bromide 60 mg tablet 60 mg PO QID 90 days #360 tabs 04/28/24 magnesium L-lactate 84 mg 84 mg PO Q12H 30 days #60 tabs 05/22/24 tablet,extended release (Magtab) potassium chloride 20 mEq 20 meq PO DAILY 30 days #30 tabs 05/22/24 tablet,extended release(part/cryst) (Klor-Con M) sodium di- and 1 tab PO BID 30 days #60 tabs 05/22/24 monophosphate-potassium phos monobasic 250 mg tablet (Phospha Neutral) pantoprazole 40 mg tablet,delayed 40 mg PO DAILY 30 days #60 tabs 05/27/24 release (Protonix) albuterol sulfate 2.5 mg/3 mL 2.5 mg (3 mL) inhalation QID PRN 07/03/24 (0.083 %) solution for nebulization shortness of breath or wheezing #180 mL amlodipine 5 mg tablet 5 mg PO DAILY #90 tabs 07/03/24 nebulizer machine with tubing and #1 ea 07/03/24 delivery device Allergies Allergy/AdvReac Type Severity Reaction Status Date / Time Influenza Virus Vaccines Allergy Intermediate Numbness Verified 06/23/24 14:33 niacin AdvReac Intermediate hives,itching, Verified 06/23/24 14:33 ankle swelling Review of Systems 2 Const: Denies: fever(s) or chills Card: Reports: edema, swelling of feet/ankles and orthopnea; Denies: chest pain Resp: Reports: dyspnea, non-productive cough, wheezing and chest congestion GI: Denies: abdominal pain : Denies: dysuria, urinary frequency or urinary urgency Musc: Denies: neck pain or back pain Skin/Breast: Denies: rash PFSH ED 2 PFSH: Medical History Acute kidney injury Sepsis Enrolled in chronic care management Clostridium difficile colitis Hypotension Hypokalemia Pneumonia COPD (chronic obstructive pulmonary disease) Vitamin D deficiency B12 deficiency Acute laryngitis Myasthenia gravis Ischemic colitis History of colon polyps Myasthenia gravis Post-menopause Hypertension Hyperlipidemia COPD (chronic obstructive pulmonary disease) Crohn's disease Surgical History Hx of colonoscopy (~2018) showed polyps which were not removed H/O oophorectomy History of hysterectomy Family History Unknown Stroke Other CAD (coronary artery disease) Social History Smoking and tobacco/nicotine status: never used tobacco/nicotine Alcohol intake: current Alcohol intake frequency: holidays/special occasions only Substance/Drug Use: never Lives independently: Yes Housing: House Current occupational status: retired 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 Current gender identity: Female Physical Exam 2 Const: GENERAL APPEARANCE: cooperative ORIENTATION/CONSCIOUSNESS: Yes awake, Yes oriented to person, Yes oriented to place and Yes oriented to time HENMT: COMMON NORMALS: normocephalic, atraumatic and hearing grossly normal bilaterally HEAD & SCALP: normocephalic and atraumatic Resp: COMMON NORMALS: normal respiratory effort, No retractions and No use of accessory muscles AUSCULTATION: crackles Cardio: COMMON NORMALS: regular rhythm and No murmurs present (Cardio) R ATE: tachycardic RHYTHM: regular rhythm GI: COMMON NORMALS: Soft to palpation and No hepatosplenomegaly present A USCULTATION: Yes normoactive bowel sounds PALPATION: Yes Soft to palpation, No Tenderness to palpation present (GI), No Guarding due to palpation present (GI) and Yes No hepatosplenomegaly present Extremity: COMMON NORMALS: normal to inspection, capillary refill normal and no calf tenderness OTHER: Trace bilateral lower extremity edema Neuro: SENSORIUM/ORIENTATION: Yes oriented to person, Yes oriented to place and Yes oriented to time Skin: COMMON NORMALS: no rashes or lesions noted GENERAL SKIN EXAM: no rashes or lesions noted Course 2 Vital Signs: Vital signs: Vital Signs Temperature 98.1 F 07/07/24 04:00 Pulse Rate 103 H 07/07/24 06:00 Respiratory Rate 19 H 07/07/24 04:00 Blood Pressure 144/89 07/07/24 04:00 Pulse Oximetry 96 07/07/24 04:00 Oxygen Delivery Me thod Nasal Cannula 07/07/24 04:00 Oxygen Flow Rate 2.5 07/06/24 16:57 MDM - SOB/Dyspnea Medical Decision Making Acute congestive heart failure patient does have COPD but does not really wheezing does have some crackles. She had minimal improvement after nebulizer. Patient given Lasix. She will need further workup and evaluation management of diuretics and blood pressure. Lab Data 07/07/24 03:30 07/07/24 03:30 Labs/Radiology: Radiology Impressions Chest X-Ray 07/06/24 11:01 IMPRESSION: No interval change. Laboratory Results WBC 6.69 10^3/uL (3.29-11.43) 07/06/24 11:15 RBC 4.79 10^6/uL (3.85-5.65) 07/06/24 11:15 Hgb 13.00 g/dL (11.27-16.99) 07/06/24 11:15 Hct 43.9 % (36-47) 07/06/24 11:15 MCV 91.6 fl (85-98) 07/06/24 11:15 MCH 27.1 pg (27-33) 07/06/24 11:15 MCHC 29.6 g/dL (30-55) L 07/06/24 11:15 RDW 14.4 % (12.1-15.1) 07/06/24 11:15 Plt Count 235 10^3/cmm (157-399) 07/06/24 11:15 MPV 10.9 fL (7.4-10.4) H 07/06/24 11:15 Neut % (Auto) 79.4 % 07/06/24 11:15 Lymph % (Auto) 11.5 % 07/06/24 11:15 Gibson % (Auto) 6.9 % 07/06/24 11:15 Eos % (Auto) 1.3 % 07/06/24 11:15 Baso % (Auto) 0.6 % 07/06/24 11:15 Neut # (Auto) 5.31 10^3/uL (1.8-7.7) 07/06/24 11:15 Lymph # (Auto) 0.8 10^3/uL (0.8-4.8) 07/06/24 11:15 Gibson # (Auto) 0.5 10^3/uL (0.2-0.9) 07/06/24 11:15 Eos # (Auto) 0.1 10^3/uL (0.0-0.8) 07/06/24 11:15 Baso # (Auto) 0.0 10^3/uL (0.0-0.1) 07/06/24 11:15 Nucleated RBC % (auto) 0 % 07/06/24 11:15 Nucleated RBCs # 0.0 /100WBC 07/06/24 11:15 Sodium 139 mmol/L (136-145) 07/06/24 11:15 Potassium 4.6 mmol/L (3.5-5.1) 07/06/24 11:15 Chloride 109 mmol/L (98-107) H 07/06/24 11:15 Carbon Dioxide 20 mmol/L (22-29) L 07/06/24 11:15 Anion Gap 14.6 (5-19) 07/06/24 11:15 BUN 17 mg/dL (8-23) 07/06/24 11:15 Creatinine 0.8 mg/dL (0.5-0.9) 07/06/24 11:15 GFR Calculation Not Reportable 07/06/24 11:15 Glucose 102 mg/dL (65-115) 07/06/24 11:15 Calculated Osmolality 290 mOsm/kg (285-295) 07/06/24 11:15 Calcium 8.2 mg/dL (8.5-10.5) L 07/06/24 11:15 Total Bilirubin 0.6 mg/dL (0.15-1.2) 07/06/24 11:15 AST 43 U/L (0-32) H 07/06/24 11:15 ALT 38 U/L (0-33) H 07/06/24 11:15 Alkaline Phosphatase 169 U/L (35-105) H 07/06/24 11:15 Troponin T Baseline 28 ng/L (0-10) H 07/06/24 15:30 NT-Pro-B Natriuret Pep 08529 pg/mL (0-125) H 07/06/24 11:15 Total Protein 6.5 g/dL (6.6-8.7) L 07/06/24 11:15 Albumin 3.6 g/dL (3.5-5.2) 07/06/24 11:15 Globulin 2.9 g/dL (1.3-4.6) 07/06/24 11:15 Urine Color Yellow (Yellow) 07/06/24 12:46 Urine Appearance Clear (CLEAR) 07/06/24 12:46 Urine pH 5.5 (5-7) 07/06/24 12:46 Ur Specific [place] 1.026 (1.005-1.030) 07/06/24 12:46 Urine Protein 2+ (Negative) A 07/06/24 12:46 Urine Glucose (UA) Negative (Normal) 07/06/24 12:46 Urine Ketones Negative (Negative) 07/06/24 12:46 Urine Blood Negative (Negative) 07/06/24 12:46 Urine Nitrate Negative (Negative) 07/06/24 12:46 Urine Bilirubin Negative (Negative) 07/06/24 12:46 Urine Urobilinogen 1.0 mg/dL (Negative) 07/06/24 12:46 Ur Leukocyte Esterase Negative (Negative) 07/06/24 12:46 Urine RBC 0-2 /hpf (0-2) 07/06/24 12:46 Urine WBC 0-5 /hpf (0-5) 07/06/24 12:46 Ur Squamous Epith Cells 0-5 /hpf (0-5) 07/06/24 12:46 Amorphous Sediment Not Reportable 07/06/24 12:46 Urine Bacteria None seen /hpf (NONE) 07/06/24 12:46 Hyaline Casts 2.05 /lpf 07/06/24 12:46 All radiology interpretation(s) finalized by discharge Discharge Plan Discharge Patient Disposition: Admitted As Inpatient Admit Provider: Clinton Farrell Clinical Impression: Acute hypoxic respiratory failure, Emphysema lung, CHF exacerbation Condition: Stable Coding Level of Care Code ED Creative Arts Therapist for Jeny Singh
--- NOTE | 2024-07-06 11:39 | PC.NURSE ---
pt has temporal pulse monitor on for o2 and hr, pt O2 sat at 84-88%, placed on 2 L NC.
[2024-07-06 12:34] LABS: Basophils % 0.6 %; Eosinophils # 0.1 10^3/uL (0.0-0.8); Eosinophils % 1.3 %; Hematocrit 43.9 % (36-47); Lymphocytes # 0.8 10^3/uL (0.8-4.8); Lymphocytes % 11.5 %; Mean Corpuscular HGB Conc 29.6 g/dL (30-55); Mean Corpuscular Hemoglobin 27.1 pg (27-33); Mean Corpuscular Volume 91.6 fl (85-98); Mean Platelet Volume 10.9 fL (7.4-10.4); Monocytes # 0.5 10^3/uL (0.2-0.9); Monocytes % 6.9 %; Neutrophils # 5.31 10^3/uL (1.8-7.7); Neutrophils % 79.4 %; Nucleated Red Blood Cells % 0 %; Platelet Count 235 10^3/cmm (157-399); Red Blood Count 4.79 10^6/uL (3.85-5.65); Red Cell Distribution Width 14.4 % (12.1-15.1); White Blood Count 6.69 10^3/uL (3.29-11.43)
[2024-07-06 12:46] LABS: Alanine Aminotransferase 38 U/L (0-33); Albumin Level 3.6 g/dL (3.5-5.2); Alkaline Phosphatase 169 U/L (35-105); Anion Gap 14.6 (5-19); Aspartate Amino Transferase 43 U/L (0-32); Blood Urea Nitrogen 17 mg/dL (8-23); Calcium 8.2 mg/dL (8.5-10.5); Carbon Dioxide 20 mmol/L (22-29); Chloride 109 mmol/L (98-107); Globulin 2.9 g/dL (1.3-4.6); Glucose 102 mg/dL (65-115); NT Pro B Type Natriuretic Pept 10803 pg/mL (0-125); Osmolality Calculated 290 mOsm/kg (285-295); Potassium 4.6 mmol/L (3.5-5.1); Sodium 139 mmol/L (136-145); Total Bilirubin 0.6 mg/dL (0.15-1.2); Total Protein 6.5 g/dL (6.6-8.7)
[2024-07-06 13:15] LABS: Bilirubin Urine Negative (Negative); Blood Urine Negative (Negative); Glucose Urine UA Negative (Normal); Ketones Urine Negative (Negative); Leukocyte Esterase Urine Negative (Negative); Nitrate Urine Negative (Negative); Protein Urine 2+ (Negative); Specific Gravity, Urine 1.026 (1.005-1.030); Urine Appearance Clear (CLEAR); Urine Color Yellow (Yellow); pH Urine 5.5 (5-7)
[2024-07-06 13:19] LABS: Add Urine Microscopic? YES; Bacteria Urine None Seen /hpf; Hyaline Casts Urine 2.05 /lpf; RBC Urine 0-2 /hpf (0-2); Squamous Epithelial Cell Urine 0-5 /hpf (0-5); WBC Urine 0-5 /hpf (0-5)
[2024-07-06] MEDS: FUROsemide 10 mg/mL SDV 10mL 60 MG IVP (15:04)
--- NOTE | 2024-07-06 15:16 | USCV_ITS ---
Darling Gonzalez Age: 73 Gender: F : 1950 Exam Date: 07/06/2024 20:36 Ordering Phys: Clinton Farrell MD Technologist: [place] [facility] [place]: chf BP: / HR: Rhythm: Sinus Technical Quality: Adequate MEASUREMENTS (Male / Female) Normal Values 2D ECHO LV Diastolic Diameter PLAX 4.5 cm 4.2 - 5.9 / 3.9 - 5.3 cm IVS Diastolic Thickness 0.9 cm 0.6 - 1.0 / 0.6 - 0.9 cm IVS Systolic Thickness 1.8 cm LVPW Diastolic Thickness 1.1 cm 0.6 - 1.0 / 0.6 - 0.9 cm LVPW Systolic Thickness 1.5 cm LVOT Diameter 2.0 cm LV Ejection Fraction 2D Teich 74.5 % LV Ejection Fraction MOD 4C 62.8 % LV Ejection Fraction MOD 2C 61.8 % LV Ejection Fraction 2C AL 63.8 % LA Diameter 2.9 cm Aorta at Sinotubular Diameter 2.6 cm IVC Diameter 1.8 cm M-MODE LA Ao Ratio MM 1.3 AV Cusp Separation MM 1.8 cm FINDINGS Left Ventricle Normal left ventricular cavity size. Normal left ventricular systolic function. Normal left ventricular wall thickness. Left ventricular ejection fraction is estimated at 60 %. Flattened septum in diastole consistent with right ventricle volume overload. Flattened septum in systole consistent with right ventricle pressure overload. Right Ventricle Severely increased right ventricular size. Right Atrium Severely increased right atrial size. Left Atrium The left atrium is normal in size. Mitral Valve Structurally normal mitral valve without significant stenosis or prolapse. There is no mitral regurgitation. Aortic Valve Structurally normal aortic valve without significant sclerosis or stenosis. There is no aortic regurgitation. Tricuspid Valve Thickened tricuspid valve. No tricuspid valve stenosis. Regurgitation not assessed due to technical error. Pulmonic Valve Not assessed due to technical problem, insufficient TR jet to assess pulmonary artery systolic pressure Pericardium Normal pericardium without effusion. Aorta Normal ascending aorta dimension. IVC The inferior vena cava appears normal. CONCLUSIONS Normal left ventricular cavity size. Normal left ventricular systolic function. Normal left ventricular wall thickness. Left ventricular ejection fraction is estimated at 60 %. Flattened septum in diastole consistent with right ventricle volume overload. Flattened septum in systole consistent with right ventricle pressure overload. Severely increased right ventricular size. Severely increased right atrial size. There is no pericardial effusion. Jaky Lombardo MD (Electronically Signed) Final Date: 07 July 2024 13:19 S
--- NOTE | 2024-07-06 15:16 | ECG_ITS ---
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 Measurements Intervals [place] Rate: 89 P: 76 AL: 190 QRS: 62 QRSD: 74 T: 51 QT: 375 QTc: 459 Interpretive Statements SINUS RHYTHM ANTEROSEPTAL MYOCARDIAL INFARCTION , OF INDETERMINATE AGE [40+ ms Q WAVE IN V1-V4] Compared to ECG 07/06/2024 10:35:19 No significant changes Electronically Signed On 07-07-2024 01:23:01 CDT by Diamond Reeves M.D. [id number]
--- NOTE | 2024-07-06 15:19 | P.HP_ITS ---
Providers/Chief Complaint 2 Primary Care Provider: Ariadna Cruz MD Chief Complaint: SOB History of Present Illness Darling Gonzalez is a 73 year old female with a past medical history of COPD, myasthenia gravis, Crohn's disease, hypertension, hyperlipidemia, history of C. difficile, history of acute renal failure, history of GI bleed, low BMI, who presents to [facility] for complaints of shortness of. Currently patient is alert oriented x 3, following all commands, complaints of shortness of breath, is on 3 L, patient tells me for the last few weeks, she has had progressively increasing shortness of breath, shortness of breath with exertion, with bilateral extremity edema does report chest discomfort with exertion, no nausea, no vomiting, no fevers, no chills, no hemoptysis, no calf pain, no calf swelling, for history of acute renal failure she tells me that she has an appointment with nephrology in February, but her kidney function returned back to normal Review of Systems 2 Const: Reports: fatigue and malaise; Denies: fever(s) or chills Card: Reports: chest pain Resp: Reports: dyspnea GI: Denies: abdominal pain Medications/Allergies Home Medications Medication Instructions Recorded Confirmed Last Taken Type krill oil 500 mg capsule 500 mg PO DAILY #90 caps 11/03/20 07/06/24 07/05/24 Rx cholecalciferol (vitamin D3) 1,250 1,250 mcg PO Q30D #30 caps 08/15/23 07/06/24 07/05/24 Rx mcg (50,000 unit) capsule calcium carbonate 600 mg PO DAILY #30 tabs 01/28/24 07/06/24 07/05/24 Rx folic acid 1 mg tablet 1 mg PO DAILY #30 tabs 01/28/24 07/06/24 07/05/24 Rx atorvastatin 20 mg tablet 20 mg PO QPM 02/14/24 07/06/24 07/05/24 History pyridostigmine bromide 60 mg tablet 60 mg PO QID 90 days #360 tabs 04/28/24 07/06/24 07/06/24 Rx magnesium L-lactate 84 mg 84 mg PO Q12H 30 days #60 tabs 05/22/24 07/06/24 07/06/24 Rx tablet,extended release (Magtab) potassium chloride 20 mEq 20 meq PO DAILY 30 days #30 tabs 05/22/24 07/06/24 07/06/24 Rx tablet,extended release(part/cryst) (Klor-Con M) sodium di- and 1 tab PO BID 30 days #60 tabs 05/22/24 07/06/24 07/05/24 Rx monophosphate-potassium phos monobasic 250 mg tablet (Phospha Neutral) pantoprazole 40 mg tablet,delayed 40 mg PO DAILY 30 days #60 tabs 05/27/24 07/06/24 07/05/24 Rx release (Protonix) albuterol sulfate 2.5 mg/3 mL 2.5 mg (3 mL) inhalation QID PRN 07/03/24 07/06/24 07/05/24 Rx (0.083 %) solution for nebulization shortness of breath or wheezing #180 mL amlodipine 5 mg tablet 5 mg PO DAILY #90 tabs 07/03/24 07/06/24 07/05/24 Rx nebulizer machine with tubing and #1 ea 07/03/24 07/06/24 Unknown Rx delivery device betamethasone dipropionate 0.05 % 1 applic topical PRN PRN Itching 07/06/24 07/06/24 Unknown History topical ointment Allergies Allergy/AdvReac Type Severity Reaction Status Date / Time Influenza Virus Vaccines Allergy Intermediate Numbness Verified 06/23/24 14:33 niacin AdvReac Intermediate hives,itching, Verified 06/23/24 14:33 ankle swelling PFSH Acute 2 PFSH: Medical History Acute kidney injury Sepsis Enrolled in chronic care management Clostridium difficile colitis Hypotension Hypokalemia Pneumonia COPD (chronic obstructive pulmonary disease) Vitamin D deficiency B12 deficiency Acute laryngitis Myasthenia gravis Ischemic colitis History of colon polyps Myasthenia gravis Post-menopause Hypertension Hyperlipidemia COPD (chronic obstructive pulmonary disease) Crohn's disease Surgical History Hx of colonoscopy (~2017) showed polyps which were not removed H/O oophorectomy History of hysterectomy Family History Unknown Stroke Other CAD (coronary artery disease) Social History Smoking and tobacco/nicotine status: never used tobacco/nicotine Alcohol intake: current Alcohol intake frequency: holidays/special occasions only Substance/Drug Use: never Lives independently: Yes Housing: House Current occupational status: retired 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 Current gender identity: Female Vitals/I&O/Wt Last Vital Signs Temp 97.6 F 07/06/24 10:43 Pulse 998 H 07/06/24 15:00 Resp 17 07/06/24 14:30 BP 164/103 07/06/24 15:00 Pulse Ox 93 07/06/24 15:00 O2 Del Method Nasal Cannula 07/06/24 15:00 O2 Flow Rate 2.5 07/06/24 15:00 Weight last 48 hrs Weight 54.431 kg Physical Exam 2 Const: COMMON NORMALS: no acute distress and patient oriented x3 Eye: COMMON NORMALS: Equal, round and reactive pupils present and EOMs intact bilaterally Resp: COMMON NORMALS: normal respiratory effort, No retractions, No use of accessory muscles and clear to auscultation bilaterally AUSCULTATION: c rackles and wheezes Cardio: COMMON NORMALS: regular rate, regular rhythm, S1 normal heart sound present and S2 normal heart sound present RATE: regular rate RHYTHM: r egular rhythm HEART SOUNDS: S1 normal heart sound present and S2 normal heart sound present GI: COMMON NORMALS: Normal to inspection, nondistended, normoactive bowel sounds present, Soft to palpation and non-tender Extremity: NARRATIVE EXTREMITY EXAM: 2+ pitting edema bilateral extremity Neuro: COMMON NORMALS: patient oriented x3, CN's II-XII intact bilaterally, moves all extremities and no focal motor deficits Psych: COMMON NORMALS: mental status grossly normal Data 07/06/24 11:15 07/06/24 11:15 A&P Assessment and plan (1) Acute hypoxic respiratory failure: (2) CHF exacerbation: (3) Hypertension: Qualifiers: Hypertension type: essential hypertension Qualified Code(s): I10 - Essential (primary) hypertension (4) Hyperlipidemia: Qualifiers: Hyperlipidemia type: mixed hyperlipidemia Qualified Code(s): E78.2 - Mixed hyperlipidemia (5) Myasthenia gravis: (6) Emphysema lung: Plan Acute hypoxic respiratory failure ? Currently requiring 3 L, ? Likely secondary to congestive heart failure exacerbation ? Plan ? Monitor in CSU ? Monitor kidney function, monitor potassium ? Continue 3 L ? Status post 60 mg IV push Lasix in the ER continue 40 mg IV push every 12 hours ? Cardiac echocardiogram ? Patient complains of chest discomfort with exertion will order troponin series ? Patient has transaminitis, elevated alk phos, ultrasound abdomen ? History of myasthenia gravis ? Full code # Lovenox for DVT prophylaxis Attestations 2 Medical Necessity Statement*: Patient requires hospitalization, inpatient, greater than 2 midnights, for acute hypoxic respiratory failure secondary CHF Diagnoses Acute hypoxic respiratory failure J96.01 CHF exacerbation I50.9 Essential hypertension I10 Hypertension type: essential hypertension Mixed hyperlipidemia E78.2 Hyperlipidemia type: mixed hyperlipidemia Myasthenia gravis G70.00 Emphysema lung J43.9
[2024-07-06 16:06] LABS: Troponin(5th) Baseline 28 ng/L (0-10)
--- NOTE | 2024-07-06 17:54 | ECG_ITS ---
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
[2024-07-06] MEDS: pantoprazole 40 mg SDV IVP (18:30)
[2024-07-06] MEDS: aspirin 81 mg EC Tablet PO (18:30)
[2024-07-06] MEDS: magnesium lactate 84 mg Tablet PO (18:30)
[2024-07-06] MEDS: pyridostigmine 60 mg Tablet PO ×2 (18:30→22:00)
[2024-07-06] MEDS: enoxaparin 40 mg/0.4 mL Syringe SUBCUT (18:30)
[2024-07-06 19:05] LABS: Troponin 5 2HR 26.04 ng/L (0-10); Troponin 5 2HR Delta -1.96 ABS# (0-10)
[2024-07-06 19:28] LABS: Thyroid Stimulating Hormone 4.89 uIU/mL (0.27-4.20)
--- NOTE | 2024-07-06 21:14 | ECG_ITS ---
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
[2024-07-06 21:34] LABS: Troponin 5 6HR 27.16 ng/L (0-10)
[2024-07-06 21:38] LABS: Troponin 5 6HR Delta -0.84 ng/L (0-12)
[2024-07-07] VITALS (9 sets, daily range): BP systolic 130–145; BP diastolic 77–89; PULSE 83–111; RESP 16–24; TEMP 36.5–36.7; O2SAT 91–100
[2024-07-07 04:36] LABS: Basophils % 0.3 %; Eosinophils # 0.2 10^3/uL (0.0-0.8); Eosinophils % 2.6 %; Hematocrit 37.6 % (36-47); Lymphocytes # 0.6 10^3/uL (0.8-4.8); Lymphocytes % 9.7 %; Mean Corpuscular HGB Conc 30.3 g/dL (30-55); Mean Corpuscular Hemoglobin 27.4 pg (27-33); Mean Corpuscular Volume 90.4 fl (85-98); Mean Platelet Volume 11.1 fL (7.4-10.4); Monocytes # 0.5 10^3/uL (0.2-0.9); Monocytes % 8.5 %; Neutrophils # 4.93 10^3/uL (1.8-7.7); Neutrophils % 78.7 %; Nucleated Red Blood Cells % 0 %; Platelet Count 208 10^3/cmm (157-399); Red Blood Count 4.16 10^6/uL (3.85-5.65); Red Cell Distribution Width 14.2 % (12.1-15.1); White Blood Count 6.26 10^3/uL (3.29-11.43)
[2024-07-07 04:58] LABS: NT Pro B Type Natriuretic Pept 11306 pg/mL (0-125)
[2024-07-07 04:59] LABS: Blood Urea Nitrogen 18 mg/dL (8-23); Calcium 7.8 mg/dL (8.5-10.5); Carbon Dioxide 23 mmol/L (22-29); Chloride 104 mmol/L (98-107); Creatinine Clr Calc Pharmacy 42.8696; Glucose 93 mg/dL (65-115); Magnesium 1.7 mg/dL (1.7-2.3); Osmolality Calculated 290 mOsm/kg (285-295); Phosphorus 4.2 mg/dL (2.5-4.5); Sodium 139 mmol/L (136-145)
[2024-07-07 05:00] LABS: Anion Gap 15.7 (5-19); Potassium 3.7 mmol/L (3.5-5.1)
[2024-07-07] MEDS: magnesium lactate 84 mg Tablet PO ×2 (05:31→16:13)
[2024-07-07] MEDS: FUROsemide 10 mg/mL SDV 4mL 40 MG IVP ×2 (05:32→16:13)
[2024-07-07] MEDS: folic acid 1 mg Tablet PO (09:43)
[2024-07-07] MEDS: pyridostigmine 60 mg Tablet PO ×4 (09:43→20:46)
[2024-07-07] MEDS: aspirin 81 mg EC Tablet PO (09:43)
--- NOTE | 2024-07-07 10:16 | PC.CHAP ---
Pastoral Care Encounter/Spiritual Assessment Type of Contact [] Declined optic fibre drawer visit [] Patient/Family/Request visit [] Outpatient visit [] Follow-up visit [] Physician referral [] Code/Alert [x] Routine visit [] Staff referral [] Actively dying [] Patient sleeping [] Family support [] [] Out of room [] Palliative care [] [] Receiving care in room [] Pre-surgical visit [] Trauma [] Long length of stay [] ICU visit [] Other: Relational/Emotional Strength [x] Patient feels connected with others/family/visitors/staff [] Distress [] Loneliness/isolation [] Abandonment Spirituality of Patient [x] Person of Orly [] Attends Zoroastrianism of their Orly [x] Believes in Prayer [] Reads Bible or Alevism materials [] There are Spiritual issues to be addressed Chief Business Development Officer Interventions [x] Prayer [x] Active listening [] Non-anxious presence [x] Spiritual/emotional support [] Crisis/trauma care [] Spiritual counseling [] Bereavement support [] Provided bereavement packet [] Provided Bible/devotional materials [] Provided toy/stuffed animal, coloring book to patient or family member [] Provided Communion [] Anointing/[place] [] Salvation [x] Completed spiritual assessment [] Other: Impact on Illness or Injury [] Angry [] Fearful [] Anxious [] Often cries [] Exhaustion [] Unable to work [] Unable to attend judaism [] Unable to walk/stand [] Unable to read [] Unable to drive [] Unable to eat/drink [] Unable to sleep [] Unable to be with family [] Patient intubated [] Other: Summary Time spent with patient 5 min
--- NOTE | 2024-07-07 14:04 | CTR_ITS ---
PROCEDURE INFORMATION: Exam: CTA Chest With Contrast Exam date and time: 07/07/2024 2:27 PM Age: 73 years old Clinical indication: Shortness of breath; Additional info: SOB, right heart strain TECHNIQUE: Imaging protocol: Computed tomographic angiography of the chest with contrast. Exam focused on the arteries. 3D rendering (Not supervised by radiologist): MIP and/or 3D reconstructed images were created by the technologist. Radiation optimization: All CT scans at this facility use at least one of these dose optimization techniques: automated exposure control; mA and/or kV adjustment per patient size (includes targeted exams where dose is matched to clinical indication); or iterative reconstruction. Contrast material: [id number]; Contrast volume: 64 ml; Contrast route: INTRAVENOUS (IV); COMPARISON: [place] [id number] 04/14/2024 11:51 PM RADIATION DOSE METRICS: Total DLP (mGy-cm): 185.71 FINDINGS: Pulmonary arteries: Evaluation for pulmonary thromboembolism is limited beyond the segmental level due to respiratory motion. No evidence of central PE. There is hypodensity within a left lower lobe subsegmental branch suspicious for PE (images [id number] of series 6). Aorta: Atherosclerosis without evidence of aneurysmal dilatation or dissection of the thoracic aorta. Thyroid: Grossly unremarkable. Lungs: No focal consolidation. Severe emphysematous changes. 10 mm left upper lobe pulmonary nodule (image 130 of series 6). Mild interstitial edema. Pleural spaces: Small bilateral pleural effusions. No pneumothorax. Heart: Moderate cardiomegaly. No pericardial effusion. Cardiac RV:LV ratio measures approximately 1.4. Mediastinal space: No evidence of mediastinal mass, fluid collection or hematoma. Lymph nodes: There is bilateral hilar and infrahilar adenopathy. Mild mediastinal adenopathy. Bones/joints: No evidence of acute fracture or aggressive osseous lesion. Soft tissues: No evidence of fluid collection or hematoma in the superficial soft tissues. Other findings: No evidence of acute abnormality in the upper abdomen. Moderate narrowing of the proximal SMA secondary to atherosclerotic plaque. Consider follow-up outpatient vascular evaluatiion. CT/CT angio chest PE protcl [id number] IMPRESSION: 1. No evidence of central PE or acute aortic abnormality. There is hypodensity within a left lower lobe subsegmental branch suspicious for subsegmental PE. No evidence of pulmonary infarct. There is right atrial/ventricular dilatation with flattening of the interventricular septum suggesting increased right-sided heart pressures, which may reflect right heart failure rather than right heart strain given subsegmental PE and severe emphysema. Correlation with echocardiography and serum laboratory findings may be helpful. 2. Mild interstitial edema and small bilateral pleural effusions. 3. Prominent bilateral hilar adenopathy, possibly reactive and/or secondary to lymphovascular congestion. A lymphoproliferative process or evan spread of neoplasm would be difficult to exclude in the proper clinical setting. 4. Enlarging left upper lobe pulmonary nodule measuring 10 mm. Follow-up PET-CT is recommended. 5. Severe emphysematous changes. The presence of pulmonary emphysema on CT is an independent risk factor for lung cancer. In the absence of a history or active diagnosis of lung cancer, it is recommended that this patient with emphysema be evaluated for enrollment in a low dose CT lung cancer screening program. References: Eula Powell, et al. Guidelines for Management of Incidental Pulmonary Nodules Detected on CT Images: From the Fleischner Society 2017. Radiology. 2017;284(1):228-243.
[2024-07-07] MEDS: iohexol 350 mg/mL 500 mL Btl (per mL) IV (14:31)
--- NOTE | 2024-07-07 15:18 | US_ITS ---
WS: [id number] RIGHT UPPER QUADRANT ULTRASOUND HISTORY: liver and gallbladder COMPARISON: 04/14/2024 Liver: 14.1 cm in length. Normal size liver and echogenicity. No bile duct dilatation or mass. Portal Vein: Not visualized. Gallbladder: Normally distended gallbladder with no stones or wall thickening. CBD: 0.6 cm Pancreas: Normal size and echogenicity. Right kidney: 9.7 cm in length. Normal size and echogenicity. No hydronephrosis or mass. Aorta and IVC: Unremarkable abdominal aorta and IVC. Small amount of ascites RIGHT upper quadrant. US/US abdomen limited [id number] IMPRESSION: 1. Negative gallbladder. 2. Small amount of ascites RIGHT upper quadrant.
--- NOTE | 2024-07-07 15:36 | USCV_ITS ---
Darling Gonzalez Age: 73 Gender: F : 1950 Exam Date: 07/07/2024 19:04 Ordering Phys: Clinton Farrell MD Technologist: TAN Exam Location: [facility] [place] Indication: EVAL FOR DVT HISTORY: Lower extremity swelling. PROCEDURES: Venous duplex imaging was performed in bilateral lower extremities. The following venous structures were evaluated: common femoral vein, profunda vein, proximal portion of the greater saphenous vein, superficial femoral vein, and the popliteal vein. In addition, the posterior tibial and peroneal trunk were evaluated. FINDINGS: No evidence of DVT seen in any vessel visualized at this time. CONCLUSIONS No evidence of right lower extremity DVT. No evidence of left lower extremity DVT. Mehdi Mazariegos MD (Electronically Signed) Final Date: 08 July 2024 09:26 S
--- NOTE | 2024-07-07 15:58 | P.PN_ITS ---
Subjective 2 Subjective: Patient was seen this morning, currently on 3 L, continues to complain of shortness of breath but improved compared to yesterday, does report a cough, no hemoptysis Vitals/I&O/Wt Last Vital Signs Temp 98.0 F 07/07/24 12:00 Pulse 89 07/07/24 12:00 Resp 16 07/07/24 12:00 BP 144/79 07/07/24 12:00 Pulse Ox 98 07/07/24 12:00 O2 Del Method Nasal Cannula 07/07/24 12:00 O2 Flow Rate 3 07/07/24 08:00 07/07/24 07/07/24 07/07/24 06:59 14:59 22:59 Intake Total 358 / 358 Output Total 1151 / 3151 500 / 500 Balance -1151 / -2671 -142 / -142 Weight last 48 hrs Weight 50.1 kg Weight 51.454 kg Weight 54.431 kg Physical Exam 2 Const: COMMON NORMALS: no acute distress and patient oriented x3 Resp: COMMON NORMALS: normal respiratory effort, No retractions, No use of accessory muscles and clear to auscultation bilaterally AUSCULTATION: clear to auscultation bilaterally Cardio: COMMON NORMALS: regular rate, regular rhythm, S1 normal heart sound present and S2 normal heart sound present RATE: regular rate RHYTHM: r egular rhythm HEART SOUNDS: S1 normal heart sound present and S2 normal heart sound present GI: COMMON NORMALS: Normal to inspection, nondistended, normoactive bowel sounds present and non-tender Extremity: NARRATIVE EXTREMITY EXAM: 1+ pitting edema bilateral extremity Neuro: COMMON NORMALS: patient oriented x3 Psych: COMMON NORMALS: mental status grossly normal Data 07/07/24 03:30 07/07/24 03:30 A&P Assessment and plan (1) Acute hypoxic respiratory failure: (2) CHF exacerbation: (3) Hypertension: Qualifiers: Hypertension type: essential hypertension Qualified Code(s): I10 - Essential (primary) hypertension (4) Hyperlipidemia: Qualifiers: Hyperlipidemia type: mixed hyperlipidemia Qualified Code(s): E78.2 - Mixed hyperlipidemia (5) Myasthenia gravis: (6) Emphysema lung: Plan Acute hypoxic respiratory failure ? Currently requiring 3 L, ? Likely secondary to congestive heart failure exacerbation ? Plan ? Monitor in CSU ? Monitor kidney function, monitor potassium ? Continue 3 L ? -3 L ? Status post 60 mg IV push Lasix in the ER continue 40 mg IV push every 12 hours ? Cardiac echocardiogram CONCLUSIONS Normal left ventricular cavity size. Normal left ventricular systolic function. Normal left ventricular wall thickness. Left ventricular ejection fraction is estimated at 60 %. Flattened septum in diastole consistent with right ventricle volume overload. Flattened septum in systole consistent with right ventricle pressure overload. Severely increased right ventricular size. Severely increased right atrial size. There is no pericardial effusion. -Given increased right-sided heart pressures, will order CT angiogram for evaluation for PE ? Patient complains of chest discomfort with exertion will order troponin series, 6-hour troponin 27 ? Patient has transaminitis, elevated alk phos, ultrasound abdomen US/US abdomen limited [id number] IMPRESSION: 1. Negative gallbladder. 2. Small amount of ascites RIGHT upper quadrant. ? History of myasthenia gravis ? Full code # Lovenox for DVT prophylaxis Attestations 2 Medical Necessity Statement*: Patient requires hospitalization for acute hypoxic respiratory failure secondary to CHF, echo showing decreased right ventricle size, right atrial size, flattened septum in systole consistent with right ventricular pressure overload, Diagnoses Acute hypoxic respiratory failure J96.01 CHF exacerbation I50.9 Essential hypertension I10 Hypertension type: essential hypertension Mixed hyperlipidemia E78.2 Hyperlipidemia type: mixed hyperlipidemia Myasthenia gravis G70.00 Emphysema lung J43.9
[2024-07-07] MEDS: pantoprazole 40 mg SDV IVP (16:13)
[2024-07-07] MEDS: atorvastatin 40 mg Tablet 20 MG PO (16:13)
[2024-07-07] MEDS: heparin drip 25,000 UNIT/500 ML PREMIX 14 UNIT IV (16:15)
[2024-07-07] MEDS: heparin 5,000 unit/mL INJ 1 mL IVP (16:16)
[2024-07-07 22:24] LABS: Partial Thromboplastin Time 141.1 SECONDS (23.9-36.7)
[2024-07-08] VITALS (11 sets, daily range): BP systolic 111–151; BP diastolic 67–94; PULSE 79–112; RESP 19–23; TEMP 36.8–37.3; O2SAT 87–98
[2024-07-08] MEDS: benzonatate 100 mg Capsule 200 MG PO ×4 (02:44→21:22)
[2024-07-08 04:47] LABS: Basophils % 0.4 %; Eosinophils % 0.4 %; Hematocrit 40.3 % (36-47); Lymphocytes % 13.6 %; Mean Corpuscular HGB Conc 31.3 g/dL (30-55); Mean Corpuscular Hemoglobin 27.6 pg (27-33); Mean Corpuscular Volume 88.2 fl (85-98); Mean Platelet Volume 11.1 fL (7.4-10.4); Monocytes # 0.6 10^3/uL (0.2-0.9); Monocytes % 7.9 %; Neutrophils # 5.46 10^3/uL (1.8-7.7); Neutrophils % 77.3 %; Nucleated Red Blood Cells % 0 %; Platelet Count 213 10^3/cmm (157-399); Red Blood Count 4.57 10^6/uL (3.85-5.65); Red Cell Distribution Width 14.2 % (12.1-15.1); White Blood Count 7.07 10^3/uL (3.29-11.43)
[2024-07-08 05:04] LABS: Anion Gap 13.9 (5-19); Blood Urea Nitrogen 12 mg/dL (8-23); Calcium 7.6 mg/dL (8.5-10.5); Carbon Dioxide 29 mmol/L (22-29); Chloride 98 mmol/L (98-107); Creatinine Clr Calc Pharmacy 47.1498; Glucose 101 mg/dL (65-115); Magnesium 1.5 mg/dL (1.7-2.3); Osmolality Calculated 286 mOsm/kg (285-295); Phosphorus 3.5 mg/dL (2.5-4.5); Sodium 138 mmol/L (136-145)
[2024-07-08 05:10] LABS: Partial Thromboplastin Time 90.7 SECONDS (23.9-36.7)
[2024-07-08 05:13] LABS: Potassium 2.9 mmol/L (3.5-5.1)
--- NOTE | 2024-07-08 05:21 | PC.NURSE ---
Called and spoke with regarding patients potassium of 2.9. ordered potassium replacement.
[2024-07-08] MEDS: potassium chloride ER 20 mEq Tablet 40 MEQ PO (06:01)
[2024-07-08] MEDS: magnesium lactate 84 mg Tablet PO ×2 (06:01→17:31)
[2024-07-08] MEDS: aspirin 81 mg EC Tablet PO (08:30)
[2024-07-08] MEDS: potassium chloride ER 20 mEq Tablet PO (08:30)
[2024-07-08] MEDS: pyridostigmine 60 mg Tablet PO ×4 (08:30→21:21)
[2024-07-08] MEDS: FUROsemide 10 mg/mL SDV 4mL 40 MG IVP (08:30)
[2024-07-08] MEDS: folic acid 1 mg Tablet PO (08:30)
[2024-07-08] MEDS: albuterol 2.5 mg/3 mL Neb INHALATION ×2 (11:34→20:03)
--- NOTE | 2024-07-08 13:15 | XRR_ITS ---
PROCEDURE INFORMATION: Exam: XR Chest Exam date and time: 07/08/2024 2:12 PM Age: 73 years old Clinical indication: Shortness of breath; Additional info: Increased congestion TECHNIQUE: Imaging protocol: Radiologic exam of the chest. Views: 1 view. COMPARISON: CT angio chest PE protcl [id number] 07/07/2024 2:27 PM FINDINGS: Lungs: No focal consolidation. Severe emphysematous changes. Mild interstitial edema. Suspicious left upper lobe pulmonary nodule is better appreciable by CT. Pleural spaces: No evidence of pneumothorax. Likely small bilateral pleural effusions. No evidence of large pleural effusion. Heart/Mediastinum: Cardiomediastinal silhouette is within normal limits. Bones/joints: No evidence of acute osseous abnormality. XR/XR chest 1V portable [id number] IMPRESSION: 1. Mild interstitial edema and likely small pleural effusions. No evidence of enlarging effusion. 2. Severe emphysematous changes. 3. Suspicious left upper lobe pulmonary nodule is better appreciable by CT.
[2024-07-08 14:43] LABS: Anion Gap 15.7 (5-19); Blood Urea Nitrogen 12 mg/dL (8-23); C Reactive Protein 25.8 mg/L (0.0-4.9); Calcium 7.9 mg/dL (8.5-10.5); Carbon Dioxide 28 mmol/L (22-29); Chloride 96 mmol/L (98-107); Creatinine Clr Calc Pharmacy 37.9981; Glucose 116 mg/dL (65-115); Osmolality Calculated 283 mOsm/kg (285-295); Potassium 3.7 mmol/L (3.5-5.1); Sodium 136 mmol/L (136-145)
[2024-07-08 14:48] LABS: Partial Thromboplastin Time 52.8 SECONDS (23.9-36.7)
[2024-07-08 14:50] LABS: Procalcitonin 0.26 ng/mL (0-0.5)
--- NOTE | 2024-07-08 15:46 | P.PN_ITS ---
Subjective 2 Subjective: Patient was seen this morning, she continues to have a nonproductive cough, no fevers, no chills, no nausea, no vomiting no hemoptysis, her lower extremity edema has improved or shortness of breath is improving Vitals/I&O/Wt Last Vital Signs Temp 98.2 F 07/08/24 15:45 Pulse 92 07/08/24 15:45 Resp 23 H 07/08/24 15:45 BP 151/94 07/08/24 15:45 Pulse Ox 90 07/08/24 12:00 O2 Del Method Room Air 07/08/24 12:00 O2 Flow Rate 3 07/08/24 11:35 07/08/24 07/08/24 07/08/24 06:59 14:59 22:59 Intake Total 134.433 / 088.971 0123.85 / 1046.85 Output Total 150 / 2850 151 / 151 Balance -15.567 / -1929.834 895.85 / 895.85 Weight last 48 hrs Weight 42.6 kg Weight 50.1 kg Weight 51.454 kg Physical Exam 2 Const: COMMON NORMALS: no acute distress and patient oriented x3 Resp: COMMON NORMALS: normal respiratory effort, No retractions and No use of accessory muscles AUSCULTATION: wheezes Cardio: COMMON NORMALS: regular rate, regular rhythm, S1 normal heart sound present and S2 normal heart sound present RATE: regular rate RHYTHM: r egular rhythm HEART SOUNDS: S1 normal heart sound present and S2 normal heart sound present GI: COMMON NORMALS: Normal to inspection, nondistended, normoactive bowel sounds present and non-tender Extremity: COMMON NORMALS: no pedal edema Neuro: COMMON NORMALS: patient oriented x3 Psych: COMMON NORMALS: mental status grossly normal Data 07/08/24 04:34 07/08/24 14:11 A&P Assessment and plan (1) Acute hypoxic respiratory failure: (2) CHF exacerbation: (3) Hypertension: Qualifiers: Hypertension type: essential hypertension Qualified Code(s): I10 - Essential (primary) hypertension (4) Hyperlipidemia: Qualifiers: Hyperlipidemia type: mixed hyperlipidemia Qualified Code(s): E78.2 - Mixed hyperlipidemia (5) Myasthenia gravis: (6) Emphysema lung: (7) Pulmonary embolism: (8) Right-sided heart failure: Plan Acute hypoxic respiratory failure ? Currently requiring 3 L, ? Likely secondary to congestive heart failure exacerbation -Now with cardiac echocardiogram showing increased right-sided heart pressures, with evidence of pulmonary hypertension on prior echo, with history of emphysema, concerning for right-sided heart failure, and pulmonary hypertension ? Plan ? Monitor in CSU ? Monitor kidney function, monitor potassium ? Continue 3 L ? -3 L ? 1 dose Lasix this morning ? Cardiac echocardiogram CONCLUSIONS Normal left ventricular cavity size. Normal left ventricular systolic function. Normal left ventricular wall thickness. Left ventricular ejection fraction is estimated at 60 %. Flattened septum in diastole consistent with right ventricle volume overload. Flattened septum in systole consistent with right ventricle pressure overload. Severely increased right ventricular size. Severely increased right atrial size. There is no pericardial effusion. -CT angiogram of the chest showed CT/CT angio chest PE protcl [id number] IMPRESSION: 1. No evidence of central PE or acute aortic abnormality. There is hypodensity within a left lower lobe subsegmental branch suspicious for subsegmental PE. No evidence of pulmonary infarct. There is right atrial/ventricular dilatation with flattening of the interventricular septum suggesting increased right-sided heart pressures, which may reflect right heart failure rather than right heart strain given subsegmental PE and severe emphysema. Correlation with echocardiography and serum laboratory findings may be helpful. 2. Mild interstitial edema and small bilateral pleural effusions. 3. Prominent bilateral hilar adenopathy, possibly reactive and/or secondary to lymphovascular congestion. A lymphoproliferative process or evan spread of neoplasm would be difficult to exclude in the proper clinical setting. 4. Enlarging left upper lobe pulmonary nodule measuring 10 mm. Follow-up PET-CT is recommended. 5. Severe emphysematous changes. The presence of pulmonary emphysema on CT is an independent risk factor for lung cancer. In the absence of a history or active diagnosis of lung cancer, it is recommended that this patient with emphysema be evaluated for enrollment in a low dose CT lung cancer screening program. -Has elevated D-dimer, has elevated troponins, suspicious for pulmonary embolism -Concerns for pulm embolism, patient was placed on heparin drip -Given elevated right-sided heart pressures, prior echocardiogram showing evidence of pulmonary hypertension, concerns for right-sided heart failure, will continue to diurese, depending clinical progress will discuss with cardiology about inpatient versus outpatient right heart cath ? Patient complains of chest discomfort with exertion will order troponin series, 6-hour troponin 27 ? Patient has transaminitis, elevated alk phos, ultrasound abdomen US/US abdomen limited [id number] IMPRESSION: 1. Negative gallbladder. 2. Small amount of ascites RIGHT upper quadrant. ? History of myasthenia gravis -Cough, repeat chest x-ray, inflammatory markers respiratory viral panel ? Full code # Lovenox for DVT prophylaxis Plan for today Lasix therapy, monitor clinical progress continue heparin drip, speak to cardiology spoke to nursing staff Attestations 2 Medical Necessity Statement*: Patient requires hospitalization for right-sided heart failure, pulmonary hypertension, pulmonary embolism, CHF, Diagnoses Acute hypoxic respiratory failure J96.01 CHF exacerbation I50.9 Essential hypertension I10 Hypertension type: essential hypertension Mixed hyperlipidemia E78.2 Hyperlipidemia type: mixed hyperlipidemia Myasthenia gravis G70.00 Emphysema lung J43.9 Pulmonary embolism I26.99 Right-sided heart failure I50.810
[2024-07-08 16:10] LABS: Adenovirus Not Detected (NOT DETECT); Chlamydia Pneumoniae Not Detected (NOT DETECT); Coronavirus 229E,HKU1,NL63,OC4 Not Detected (NOT DETECT); Human Metapneumovirus Detected (NOT DETECT); Human Rhinovirus/Enterovirus Not Detected (NOT DETECT); Influenza A Not Detected (NOT DETECT); Influenza A H1 Not Detected (NOT DETECT); Influenza A H1-2009 Not Detected (NOT DETECT); Influenza A H3 Not Detected (NOT DETECT); Influenza B Not Detected (NOT DETECT); Mycoplasma Pneumoniae Not Detected (NOT DETECT); Parainfluenza Virus Type 1 Not Detected (NOT DETECT); Parainfluenza Virus Type 2 Not Detected (NOT DETECT); Parainfluenza Virus Type 3 Not Detected (NOT DETECT); Parainfluenza Virus Type 4 Not Detected (NOT DETECT); Respiratory Syncytial Virus A Not Detected (NOT DETECT); Respiratory Syncytial Virus B Not Detected (NOT DETECT); SARS-COV-2 Not Detected (NOT DETECT)
[2024-07-08] MEDS: methylPREDNISolone sod succ 125 mg/2 mL INJ IVP (17:30)
[2024-07-08] MEDS: atorvastatin 40 mg Tablet 20 MG PO (17:31)
[2024-07-08] MEDS: pantoprazole 40 mg SDV IVP (17:31)
[2024-07-08 19:52] LABS: Partial Thromboplastin Time 55.8 SECONDS (23.9-36.7)
[2024-07-08] MEDS: budesonide 0.5 mg/2 mL Neb INHALATION (20:03)
[2024-07-09] VITALS (9 sets, daily range): BP systolic 113–131; BP diastolic 71–87; PULSE 74–95; RESP 16–24; TEMP 36.3–37.2; O2SAT 90–100
[2024-07-09 02:19] LABS: Basophils % 0.2 %; Hematocrit 43.4 % (36-47); Lymphocytes # 0.6 10^3/uL (0.8-4.8); Mean Corpuscular HGB Conc 30.6 g/dL (30-55); Mean Corpuscular Hemoglobin 27.3 pg (27-33); Mean Corpuscular Volume 88.9 fl (85-98); Mean Platelet Volume 10.5 fL (7.4-10.4); Monocytes # 0.1 10^3/uL (0.2-0.9); Monocytes % 1.6 %; Neutrophils # 5.51 10^3/uL (1.8-7.7); Neutrophils % 87.7 %; Nucleated Red Blood Cells % 0 %; Platelet Count 215 10^3/cmm (157-399); Red Blood Count 4.88 10^6/uL (3.85-5.65); Red Cell Distribution Width 13.8 % (12.1-15.1); White Blood Count 6.28 10^3/uL (3.29-11.43)
[2024-07-09 02:38] LABS: Anion Gap 12.7 (5-19); Blood Urea Nitrogen 13 mg/dL (8-23); Calcium 7.8 mg/dL (8.5-10.5); Carbon Dioxide 30 mmol/L (22-29); Chloride 97 mmol/L (98-107); Creatinine Clr Calc Pharmacy 37.9981; Glucose 203 mg/dL (65-115); Magnesium 1.7 mg/dL (1.7-2.3); Osmolality Calculated 288 mOsm/kg (285-295); Potassium 3.7 mmol/L (3.5-5.1); Sodium 136 mmol/L (136-145)
[2024-07-09 02:40] LABS: Partial Thromboplastin Time 85.7 SECONDS (23.9-36.7)
[2024-07-09] MEDS: magnesium lactate 84 mg Tablet PO ×2 (06:07→17:25)
[2024-07-09] MEDS: budesonide 0.5 mg/2 mL Neb INHALATION ×2 (07:48→20:41)
[2024-07-09] MEDS: albuterol 2.5 mg/3 mL Neb INHALATION ×2 (07:48→20:41)
[2024-07-09] MEDS: aspirin 81 mg EC Tablet PO (08:15)
[2024-07-09] MEDS: pyridostigmine 60 mg Tablet PO ×4 (08:15→21:07)
[2024-07-09] MEDS: benzonatate 100 mg Capsule 200 MG PO ×3 (08:15→21:07)
[2024-07-09] MEDS: folic acid 1 mg Tablet PO (08:15)
[2024-07-09 09:40] LABS: Partial Thromboplastin Time 50.6 SECONDS (23.9-36.7)
[2024-07-09] MEDS: apixaban 5 mg Tablet PO ×2 (12:36→21:06)
[2024-07-09] MEDS: methylPREDNISolone sod succ 40 mg/mL INJ IVP (14:43)
[2024-07-09] MEDS: FUROsemide 10 mg/mL SDV 2mL 20 MG IVP (14:44)
--- NOTE | 2024-07-09 16:58 | P.PN_ITS ---
Subjective 2 Subjective: Patient was seen this morning, she is alert oriented x 3, following all commands, her wheezing has improved we discussed her positive test for hemoglobin adenovirus, will give her another dose of steroids but we have to be careful given her history of myasthenia gravis, her cough is more under control, no fevers, chills we discussed transitioning her off her heparin drip to Eliquis, will give her another dose of Lasix this morning Vitals/I&O/Wt Last Vital Signs Temp 97.3 F L 07/09/24 12:00 Pulse 88 07/09/24 12:00 Resp 24 H 07/09/24 12:00 BP 129/87 07/09/24 12:00 Pulse Ox 90 07/09/24 12:00 O2 Del Method Nasal Cannula 07/09/24 12:00 O2 Flow Rate 3 07/09/24 12:00 07/09/24 07/09/24 07/09/24 06:59 14:59 22:59 Intake Total 119.333 / 1566.183 312.651 / 312.651 Output Total 300 / 300 Balance 119.333 / 1415.183 12.651 / 12.651 Weight last 48 hrs Weight 42.6 kg Weight 42.6 kg Physical Exam 2 Const: COMMON NORMALS: no acute distress and patient oriented x3 Resp: COMMON NORMALS: normal respiratory effort, No retractions and No use of accessory muscles AUSCULTATION: rales and wheezes Cardio: COMMON NORMALS: regular rate, regular rhythm, S1 normal heart sound present and S2 normal heart sound present RATE: regular rate RHYTHM: r egular rhythm HEART SOUNDS: S1 normal heart sound present and S2 normal heart sound present GI: COMMON NORMALS: Normal to inspection, nondistended, normoactive bowel sounds present and non-tender Extremity: COMMON NORMALS: no pedal edema Neuro: COMMON NORMALS: patient oriented x3 Psych: COMMON NORMALS: mental status grossly normal Data 07/09/24 02:11 07/09/24 02:11 A&P Assessment and plan (1) Acute hypoxic respiratory failure: (2) CHF exacerbation: (3) Hypertension: Qualifiers: Hypertension type: essential hypertension Qualified Code(s): I10 - Essential (primary) hypertension (4) Hyperlipidemia: Qualifiers: Hyperlipidemia type: mixed hyperlipidemia Qualified Code(s): E78.2 - Mixed hyperlipidemia (5) Myasthenia gravis: (6) Emphysema lung: (7) Pulmonary embolism: (8) Right-sided heart failure: (9) Infection due to human metapneumovirus (hMPV): Plan Acute hypoxic respiratory failure ? Currently requiring 3 L, ? Likely secondary to congestive heart failure exacerbation -Now with cardiac echocardiogram showing increased right-sided heart pressures, with evidence of pulmonary hypertension on prior echo, with history of emphysema, concerning for right-sided heart failure, and pulmonary hypertension ? Plan ? Monitor in CSU ? Monitor kidney function, monitor potassium ? Continue 3 L ? -3 L ? 1 dose Lasix this morning ? Cardiac echocardiogram CONCLUSIONS Normal left ventricular cavity size. Normal left ventricular systolic function. Normal left ventricular wall thickness. Left ventricular ejection fraction is estimated at 60 %. Flattened septum in diastole consistent with right ventricle volume overload. Flattened septum in systole consistent with right ventricle pressure overload. Severely increased right ventricular size. Severely increased right atrial size. There is no pericardial effusion. -CT angiogram of the chest showed CT/CT angio chest PE protcl [id number] IMPRESSION: 1. No evidence of central PE or acute aortic abnormality. There is hypodensity within a left lower lobe subsegmental branch suspicious for subsegmental PE. No evidence of pulmonary infarct. There is right atrial/ventricular dilatation with flattening of the interventricular septum suggesting increased right-sided heart pressures, which may reflect right heart failure rather than right heart strain given subsegmental PE and severe emphysema. Correlation with echocardiography and serum laboratory findings may be helpful. 2. Mild interstitial edema and small bilateral pleural effusions. 3. Prominent bilateral hilar adenopathy, possibly reactive and/or secondary to lymphovascular congestion. A lymphoproliferative process or evan spread of neoplasm would be difficult to exclude in the proper clinical setting. 4. Enlarging left upper lobe pulmonary nodule measuring 10 mm. Follow-up PET-CT is recommended. 5. Severe emphysematous changes. The presence of pulmonary emphysema on CT is an independent risk factor for lung cancer. In the absence of a history or active diagnosis of lung cancer, it is recommended that this patient with emphysema be evaluated for enrollment in a low dose CT lung cancer screening program. -Has elevated D-dimer, has elevated troponins, suspicious for pulmonary embolism -Concerns for pulm embolism, patient was placed on heparin drip -Given elevated right-sided heart pressures, prior echocardiogram showing evidence of pulmonary hypertension, concerns for right-sided heart failure, will continue to diurese, depending clinical progress will discuss with cardiology about inpatient versus outpatient right heart cath ? Patient complains of chest discomfort with exertion will order troponin series, 6-hour troponin 27 ? Patient has transaminitis, elevated alk phos, ultrasound abdomen US/US abdomen limited [id number] IMPRESSION: 1. Negative gallbladder. 2. Small amount of ascites RIGHT upper quadrant. ? History of myasthenia gravis -Acute bronchitis, cough secondary to human metapneumovirus, monitor, 1 dose of steroids today ? Full code # Lovenox for DVT prophylaxis Plan for today L switch to Eliquis therapy from heparin drip, 1 dose of Lasix, 1 dose of steroids Attestations 2 Medical Necessity Statement*: Patient requires hospitalization for acute hypoxic respiratory failure secondary to right-sided heart failure Diagnoses Acute hypoxic respiratory failure J96.01 CHF exacerbation I50.9 Essential hypertension I10 Hypertension type: essential hypertension Mixed hyperlipidemia E78.2 Hyperlipidemia type: mixed hyperlipidemia Myasthenia gravis G70.00 Emphysema lung J43.9 Pulmonary embolism I26.99 Right-sided heart failure I50.810 Infection due to human metapneumovirus (hMPV) B34.8
[2024-07-09] MEDS: atorvastatin 40 mg Tablet 20 MG PO (17:26)
[2024-07-09] MEDS: pantoprazole 40 mg SDV IVP (17:26)
[2024-07-10] VITALS (7 sets, daily range): BP systolic 119–154; BP diastolic 65–90; PULSE 69–97; RESP 17–18; TEMP 36.5–36.6; O2SAT 87–99; BMI 16.0
[2024-07-10 04:17] LABS: Basophils % 0.1 %; Hematocrit 44.2 % (36-47); Lymphocytes # 1.2 10^3/uL (0.8-4.8); Lymphocytes % 9.9 %; Mean Corpuscular HGB Conc 30.1 g/dL (30-55); Mean Corpuscular Hemoglobin 26.8 pg (27-33); Mean Corpuscular Volume 89.1 fl (85-98); Mean Platelet Volume 10.8 fL (7.4-10.4); Monocytes # 0.6 10^3/uL (0.2-0.9); Monocytes % 5.5 %; Neutrophils # 9.87 10^3/uL (1.8-7.7); Neutrophils % 84.2 %; Nucleated Red Blood Cells % 0 %; Platelet Count 240 10^3/cmm (157-399); Red Blood Count 4.96 10^6/uL (3.85-5.65); Red Cell Distribution Width 13.5 % (12.1-15.1); White Blood Count 11.72 10^3/uL (3.29-11.43)
[2024-07-10 04:49] LABS: Anion Gap 12.8 (5-19); Blood Urea Nitrogen 24 mg/dL (8-23); Calcium 8.5 mg/dL (8.5-10.5); Carbon Dioxide 30 mmol/L (22-29); Chloride 96 mmol/L (98-107); Creatinine Clr Calc Pharmacy 31.0894; Glucose 144 mg/dL (65-115); NT Pro B Type Natriuretic Pept 10209 pg/mL (0-125); Osmolality Calculated 287 mOsm/kg (285-295); Potassium 3.8 mmol/L (3.5-5.1); Sodium 135 mmol/L (136-145)
[2024-07-10] MEDS: guaiFENesin-dextromethorphan UDC 10 mL 5 ML PO ×2 (04:56→09:24)
[2024-07-10] MEDS: magnesium lactate 84 mg Tablet PO (04:56)
[2024-07-10] MEDS: FUROsemide 10 mg/mL SDV 4mL 40 MG IVP (07:53)
[2024-07-10] MEDS: potassium chloride ER 20 mEq Tablet PO (07:54)
[2024-07-10] MEDS: folic acid 1 mg Tablet PO (08:01)
[2024-07-10] MEDS: benzonatate 100 mg Capsule 200 MG PO (08:01)
[2024-07-10] MEDS: pyridostigmine 60 mg Tablet PO (08:01)
[2024-07-10] MEDS: apixaban 5 mg Tablet PO (08:01)
[2024-07-10] MEDS: aspirin 81 mg EC Tablet PO (08:01)
[2024-07-10] MEDS: albuterol 2.5 mg/3 mL Neb INHALATION (08:09)
[2024-07-10] MEDS: budesonide 0.5 mg/2 mL Neb INHALATION (08:09)
[2024-07-10] MEDS: methylPREDNISolone sod succ 40 mg/mL INJ IVP (09:15)
--- NOTE | 2024-07-10 11:44 | PM.DCS ---
Discharge Providers Date of Admission: 07/06/24 16:05 Date of Discharge: July 10, 2024 Attending Provider at Admission: Clinton Farrell MD Attending Provider at Discharge: Clinton Farrell MD Primary Care Provider: Ariadna Cruz MD Diagnoses at Discharge Discharge Diagnosis (1) Acute hypoxic respiratory failure: Status: Acute (2) CHF exacerbation: Status: Acute (3) Hypertension: Status: Chronic Qualifiers: Hypertension type: essential hypertension Qualified Code(s): I10 - Essential (primary) hypertension (4) Hyperlipidemia: Status: Chronic Qualifiers: Hyperlipidemia type: mixed hyperlipidemia Qualified Code(s): E78.2 - Mixed hyperlipidemia (5) Myasthenia gravis: Status: Acute (6) Emphysema lung: Status: Acute (7) Pulmonary embolism: Status: Acute (8) Right-sided heart failure: Status: Acute (9) Infection due to human metapneumovirus (hMPV): Status: Acute Reason for Visit Reason for Visit: SOB Hospital Course Hospital Course Darling Gonzalez is a 73 year old female with a past medical history of COPD, myasthenia gravis, Crohn's disease, hypertension, hyperlipidemia, history of C. difficile, history of acute renal failure, history of GI bleed, low BMI, who presents to [facility] for complaints of shortness of. Currently patient is alert oriented x 3, following all commands, complaints of shortness of breath, is on 3 L, patient tells me for the last few weeks, she has had progressively increasing shortness of breath, shortness of breath with exertion, with bilateral extremity edema does report chest discomfort with exertion, no nausea, no vomiting, no fevers, no chills, no hemoptysis, no calf pain, no calf swelling, for history of acute renal failure she tells me that she has an appointment with nephrology in February, but her kidney function returned back to normal Patient was admitted to [facility] for acute on chronic hypoxic respiratory failure requiring 3 L likely secondary to acute diastolic CHF exacerbation, right sided heart failure, pulmonary hypertension pulmonary embolism, For patient is acute diastolic CHF exacerbation, received inpatient diuresis, overall clinically proved, diuresed over 3 L. On discharge she was discharged and instructions to limit her fluid intake to 1000 mL a day, Lasix 20 mg daily with potassium replacement therapy with a close follow-up with primary care and cardiology in 1 week to recheck kidney function and potassium During her hospitalization patient was found to have elevated right sided heart pressures, concerning for right-sided heart failure secondary to pulmonary hypertension, and emphysema of the lungs. Her cardiac echocardiogram showed: Flattened septum in diastole consistent with right ventricle volume overload. Flattened septum in systole consistent with right ventricle pressure overload. Severely increased right ventricular size. Severely increased right atrial size. -The prior echocardiogram during last hospitalization showed moderate to severe pulmonary hypertension ? Her CT of her chest shows emphysema of her lungs ? She has a history of smoking, no active smoking -Concerning for right-sided heart failure, with pulmonary hypertension, emphysema of the lungs -Will refer her to cardiology, for right sided heart cath -Will have her follow-up with cardiology as outpatient possible referral to [facility] pulmonary hypertension clinic Patient CT scan shows 3. Prominent bilateral hilar adenopathy, possibly reactive and/or secondary to lymphovascular congestion. A lymphoproliferative process or evan spread of neoplasm would be difficult to exclude in the proper clinical setting. 4. Enlarging left upper lobe pulmonary nodule measuring 10 mm. Follow-up PET-CT is recommended. -She has a history of smoking and no active smoking -Will refer her to pulmonary in [place] for consideration of bronchoscopy and or PET scan Patient CT scan showed 1. No evidence of central PE or acute aortic abnormality. There is hypodensity within a left lower lobe subsegmental branch suspicious for subsegmental PE. No evidence of pulmonary infarct. There is right atrial/ventricular dilatation with flattening of the interventricular septum suggesting increased right-sided heart pressures, which may reflect right heart failure rather than right heart strain given subsegmental PE and severe emphysema. Correlation with echocardiography and serum laboratory findings may be helpful. -With her elevated D-dimer, elevated troponins, CT scan findings as above, highly suspicious for pulmonary embolism -She was initially managed on a heparin drip, tolerated well, will transition her to Eliquis 5 mg twice daily as outpatient -Follow-up with pulmonary, follow with cardiology Patient's hospitalization was complicated by human metapneumovirus, she did require 2 doses of steroids as an inpatient, will discharge on albuterol, Advair, Tessalon Perles for cough Physical Exam Const: COMMON NORMALS: no acute distress and patient oriented x3 Resp: COMMON NORMALS: normal respiratory effort, No retractions, No use of accessory muscles and clear to auscultation bilaterally AUSCULTATION: clear to auscultation bilaterally Cardio: COMMON NORMALS: regular rate, regular rhythm, S1 normal heart sound present and S2 normal heart sound present RATE: regular rate RHYTHM: regular rhythm HEART SOUNDS: S1 normal heart sound present and S2 normal heart sound present GI: COMMON NORMALS: Normal to inspection, nondistended, normoactive bowel sounds present and non-tender Extremity: COMMON NORMALS: no clubbing, cyanosis or edema, no calf tenderness and no pedal edema Neuro: COMMON NORMALS: patient oriented x3 Psych: COMMON NORMALS: mental status grossly normal Discharge Data Studies Completed and Pending Completed Studies During Hospitalization Category Date Time Status CT angio chest PE protcl [id number] Stat Cat Scan 07/07/24 14:04 Completed XR chest 1V portable [id number] Routine Exams 07/08/24 13:15 Completed XR chest 1V portable [id number] Stat Exams 07/06/24 11:01 [place] [id number] Routine Ultrasound 07/07/24 15:36 Completed CV. echo limited [id number] Routine Ultrasound 07/06/24 15:16 Completed US abdomen limited [id number] Routine Ultrasound 07/07/24 15:18 Completed Pending at discharge Category Date Time Status Basic Metabolic Panel AM LABS Lab 07/11/24 04:00 Ordered Basic Metabolic Panel AM LABS Lab 07/12/24 04:00 Ordered Complete Blood Count w/Auto AM LABS Lab 07/11/24 04:00 Ordered Complete Blood Count w/Auto AM LABS Lab 07/12/24 04:00 Ordered NT Pro B Type Natriuretic Pept QAM Lab 07/11/24 06:00 Ordered NT Pro B Type Natriuretic Pept QAM Lab 07/12/24 06:00 Ordered Radiology Impressions Chest CTA 07/07/24 14:04 IMPRESSION: 1. No evidence of central PE or acute aortic abnormality. There is hypodensity within a left lower lobe subsegmental branch suspicious for subsegmental PE. No evidence of pulmonary infarct. There is right atrial/ventricular dilatation with flattening of the interventricular septum suggesting increased right-sided heart pressures, which may reflect right heart failure rather than right heart strain given subsegmental PE and severe emphysema. Correlation with echocardiography and serum laboratory findings may be helpful. 2. Mild interstitial edema and small bilateral pleural effusions. 3. Prominent bilateral hilar adenopathy, possibly reactive and/or secondary to lymphovascular congestion. A lymphoproliferative process or evan spread of neoplasm would be difficult to exclude in the proper clinical setting. 4. Enlarging left upper lobe pulmonary nodule measuring 10 mm. Follow-up PET-CT is recommended. 5. Severe emphysematous changes. The presence of pulmonary emphysema on CT is an independent risk factor for lung cancer. In the absence of a history or active diagnosis of lung cancer, it is recommended that this patient with emphysema be evaluated for enrollment in a low dose CT lung cancer screening program. References: Eula Powell, et al. Guidelines for Management of Incidental Pulmonary Nodules Detected on CT Images: From the Fleischner Society 2017. Radiology. 2017;284(1):228-243. Abdomen Ultrasound 07/07/24 15:18 IMPRESSION: 1. Negative gallbladder. 2. Small amount of ascites RIGHT upper quadrant. Chest X-Ray 07/08/24 13:15 IMPRESSION: 1. Mild interstitial edema and likely small pleural effusions. No evidence of enlarging effusion. 2. Severe emphysematous changes. 3. Suspicious left upper lobe pulmonary nodule is better appreciable by CT. ADDENDUM: 07/08/24 1500 IMPRESSION #4: Developing infection in the lung bases would be difficult to exclude in the proper clinical setting. Laboratory Results WBC 11.72 10^3/uL (3.29-11.43) H 07/10/24 04:07 RBC 4.96 10^6/uL (3.85-5.65) 07/10/24 04:07 Hgb 13.30 g/dL (11.27-16.99) 07/10/24 04:07 Hct 44.2 % (36-47) 07/10/24 04:07 MCV 89.1 fl (85-98) 07/10/24 04:07 MCH 26.8 pg (27-33) L 07/10/24 04:07 MCHC 30.1 g/dL (30-55) 07/10/24 04:07 RDW 13.5 % (12.1-15.1) 07/10/24 04:07 Plt Count 240 10^3/cmm (157-399) 07/10/24 04:07 MPV 10.8 fL (7.4-10.4) H 07/10/24 04:07 Neut % (Auto) 84.2 % 07/10/24 04:07 Lymph % (Auto) 9.9 % 07/10/24 04:07 [place] % (Auto) 5.5 % 07/10/24 04:07 Eos % (Auto) 0.0 % 07/10/24 04:07 Baso % (Auto) 0.1 % 07/10/24 04:07 Neut # (Auto) 9.87 10^3/uL (1.8-7.7) H 07/10/24 04:07 Lymph # (Auto) 1.2 10^3/uL (0.8-4.8) 07/10/24 04:07 [place] # (Auto) 0.6 10^3/uL (0.2-0.9) 07/10/24 04:07 Eos # (Auto) 0.0 10^3/uL (0.0-0.8) 07/10/24 04:07 Baso # (Auto) 0.0 10^3/uL (0.0-0.1) 07/10/24 04:07 Nucleated RBC % (auto) 0 % 07/10/24 04:07 Nucleated RBCs # 0.0 /100WBC 07/10/24 04:07 APTT 50.6 SECONDS (23.9-36.7) H 07/09/24 08:42 D-Dimer 1.70 ug/mLFEU (0-0.59) H 07/07/24 16:38 Sodium 135 mmol/L (136-145) L 07/10/24 04:07 Potassium 3.8 mmol/L (3.5-5.1) 07/10/24 04:07 Chloride 96 mmol/L (98-107) L 07/10/24 04:07 Carbon Dioxide 30 mmol/L (22-29) H 07/10/24 04:07 Anion Gap 12.8 (5-19) 07/10/24 04:07 BUN 24 mg/dL (8-23) H 07/10/24 04:07 Creatinine 1.1 mg/dL (0.5-0.9) H 07/10/24 04:07 GFR Calculation Not Reportable 07/10/24 04:07 Glucose 144 mg/dL (65-115) H 07/10/24 04:07 Calculated Osmolality 287 mOsm/kg (285-295) 07/10/24 04:07 Calcium 8.5 mg/dL (8.5-10.5) 07/10/24 04:07 Phosphorus 4.0 mg/dL (2.5-4.5) 07/09/24 02:11 Magnesium 1.7 mg/dL (1.7-2.3) 07/09/24 02:11 Total Bilirubin 0.6 mg/dL (0.15-1.2) 07/06/24 11:15 AST 43 U/L (0-32) H 07/06/24 11:15 ALT 38 U/L (0-33) H 07/06/24 11:15 Alkaline Phosphatase 169 U/L (35-105) H 07/06/24 11:15 Troponin T Baseline 28 ng/L (0-10) H 07/06/24 15:30 Troponin T 120 Minute 26.04 ng/L (0-10) H 07/06/24 18:00 Delta Troponin T -1.96 ABS# (0-10) L 07/06/24 18:00 Troponin T Hi Sens 6Hr 27.16 ng/L (0-10) H 07/06/24 21:04 Troponin T Hi Sens 6Hr Delta -0.84 ng/L (0-12) L 07/06/24 21:04 C-Reactive Protein 25.8 mg/L (0.0-4.9) H 07/08/24 14:11 NT-Pro-B Natriuret Pep 77532 pg/mL (0-125) H 07/10/24 04:07 Total Protein 6.5 g/dL (6.6-8.7) L 07/06/24 11:15 Albumin 3.6 g/dL (3.5-5.2) 07/06/24 11:15 Globulin 2.9 g/dL (1.3-4.6) 07/06/24 11:15 Procalcitonin 0.26 ng/mL (0-0.5) 07/08/24 14:11 TSH 4.89 uIU/mL (0.27-4.20) H 07/06/24 18:00 Urine Color Yellow (Yellow) 07/06/24 12:46 Urine Appearance Clear (CLEAR) 07/06/24 12:46 Urine pH 5.5 (5-7) 07/06/24 12:46 Ur Specific [place] 1.026 (1.005-1.030) 07/06/24 12:46 Urine Protein 2+ (Negative) A 07/06/24 12:46 Urine Glucose (UA) Negative (Normal) 07/06/24 12:46 Urine Ketones Negative (Negative) 07/06/24 12:46 Urine Blood Negative (Negative) 07/06/24 12:46 Urine Nitrate Negative (Negative) 07/06/24 12:46 Urine Bilirubin Negative (Negative) 07/06/24 12:46 Urine Urobilinogen 1.0 mg/dL (Negative) 07/06/24 12:46 Ur Leukocyte Esterase Negative (Negative) 07/06/24 12:46 Urine RBC 0-2 /hpf (0-2) 07/06/24 12:46 Urine WBC 0-5 /hpf (0-5) 07/06/24 12:46 Ur Squamous Epith Cells 0-5 /hpf (0-5) 07/06/24 12:46 Amorphous Sediment Not Reportable 07/06/24 12:46 Urine Bacteria None seen /hpf (NONE) 07/06/24 12:46 Hyaline Casts 2.05 /lpf 07/06/24 12:46 Adenovirus (PCR) Not detected (NOT DETECT) 07/08/24 14:00 C. pneumoniae DNA (PCR) Not detected (NOT DETECT) 07/08/24 14:00 Coronavirus 229E (PCR) Not detected (NOT DETECT) 07/08/24 14:00 Human Metapneumovir PCR Detected (NOT DETECT) A 07/08/24 14:00 Influenza A (H1) PCR Not detected (NOT DETECT) 07/08/24 14:00 Influ A (H1/09) PCR Not detected (NOT DETECT) 07/08/24 14:00 Influenza A (H3) PCR Not detected (NOT DETECT) 07/08/24 14:00 Influenza Type A (PCR) Not detected (NOT DETECT) 07/08/24 14:00 Influenza Type B (PCR) Not detected (NOT DETECT) 07/08/24 14:00 M. pneumoniae (PCR) Not detected (NOT DETECT) 07/08/24 14:00 Parainfluenza 1 (PCR) Not detected (NOT DETECT) 07/08/24 14:00 Parainfluenza 2 (PCR) Not detected (NOT DETECT) 07/08/24 14:00 Parainfluenza 3 (PCR) Not detected (NOT DETECT) 07/08/24 14:00 Parainfluenza 4 (PCR) Not detected (NOT DETECT) 07/08/24 14:00 RSV Type A (PCR) Not detected (NOT DETECT) 07/08/24 14:00 RSV Type B (PCR) Not detected (NOT DETECT) 07/08/24 14:00 Entero/Rhino (PCR) Not detected (NOT DETECT) 07/08/24 14:00 SARS-CoV-2 (PCR) Not detected (NOT DETECT) 07/08/24 14:00 Vitals Last Vital Signs Temp 97.9 F 07/10/24 08:00 Pulse 89 07/10/24 08:16 Resp 18 07/10/24 08:09 BP 137/78 07/10/24 08:00 Pulse Ox 87 L 07/10/24 08:19 O2 Del Method Nasal Cannula 07/10/24 08:09 O2 Flow Rate 2 07/10/24 08:19 Discharge Plan Discharge Patient Disposition: Home Condition: Stable Prescriptions: New benzonatate 100 mg Capsule 200 mg PO TID PRN (Reason: cough) 7 Days Qty: 42 0RF Eliquis 5 mg Tablet 5 mg PO BID@0900,2100 30 Days Qty: 60 0RF albuterol sulfate 90 mcg/actuation HFA aerosol inhaler 1 inh inhalation Q6H PRN (Reason: shortness of breath or wheezing) Qty: 8.5 0RF fluticasone propion-salmeterol [Advair Diskus] 100-50 mcg/dose blister with device 1 inh inhalation BID Qty: 60 0RF furosemide [Lasix] 40 mg tablet 20 mg PO DAILY 30 Days Qty: 30 0RF Continued cholecalciferol (vitamin D3) 1,250 mcg (50,000 unit) capsule 1,250 mcg PO Q30D Qty: 30 3RF albuterol sulfate 2.5 mg /3 mL (0.083 %) solution for nebulization 2.5 mg inhalation QID PRN (Reason: shortness of breath or wheezing) Qty: 180 1RF (DME) nebulizer machine with tubing and delivery device See Rx Instructions .Route .MEDSUPPLY Qty: 1 0RF Rx Instructions: As directed Protonix 40 mg tablet,delayed release (DR/EC) 40 mg PO DAILY 30 Days Qty: 60 5RF pyridostigmine bromide 60 mg tablet 60 mg PO QID 90 Days Qty: 360 3RF krill oil 500 mg capsule 500 mg PO DAILY Qty: 90 4RF calcium carbonate 600 mg calcium (1,500 mg) tablet 600 mg PO DAILY Qty: 30 3RF folic acid 1 mg tablet 1 mg PO DAILY Qty: 30 3RF Magtab 84 mg tablet extended release 84 mg PO Q12H 30 Days Qty: 60 1RF Phospha 250 Neutral 250 mg tablet 1 tab PO BID 30 Days Qty: 60 1RF Klor-Con M20 20 mEq tablet,ER particles/crystals 20 meq PO DAILY 30 Days Qty: 30 1RF atorvastatin 20 mg tablet 20 mg PO QPM betamethasone dipropionate 0.05 % ointment 1 applic topical PRN PRN (Reason: Itching) Discontinued amlodipine 5 mg tablet 5 mg PO DAILY Qty: 90 0RF Discharge Orders: Discharge Order (Routine); Ordered 07/10/24 Ordered By: Clinton Farrell Other Ambulatory Orders: DME: Oxygen (Order) Location: None Selected Ordered By: Clinton Farrell Referrals: Rickey Almendarez M.D [Physician] - 1 week Ariadna Cruz MD [Primary Care Provider] - Nitin Johnston MD, MBBS, MPH [Referring] - 1 week (3. Prominent bilateral hilar adenopathy, possibly reactive and/or secondary to lymphovascular congestion. A lymphoproliferative process or evan spread of neoplasm would be difficult to exclude in the proper clinical setting. 4. Enlarging left upper lobe pulmonary nodule measuring 10 mm. Follow-up PET-CT is recommended.) Discharge Diet: Cardiac Discharge Activity: Resume usual activity Patient Instructions: Opioid Safety Activity Restrictions/Additional Instructions: - Please follow-up with cardiology in 1 week -Please follow-up with primary care provider 1 week recheck kidney function -If you have worsening chest pain or shortness of breath go to the emergency room -If you develop bloody or black stools please go to emergency room -For your enlarged pulmonary lymph node at 10 mm, with prominent hilar adenopathy, I am going to refer you to Dr. Cohn pulmonary in [place] Discharge Attestations Time Spent in Discharge Care*: greater than 30 min Quality Metrics Clinical Quality Measures [ No reported AMI, CVA or VTE this stay] Coding Level of Care Code 15013 Total time (in minutes) for Discharge: 45 Diagnoses Acute hypoxic respiratory failure J96.01 CHF exacerbation I50.9 Essential hypertension I10 Hypertension type: essential hypertension Mixed hyperlipidemia E78.2 Hyperlipidemia type: mixed hyperlipidemia Myasthenia gravis G70.00 Emphysema lung J43.9 Pulmonary embolism I26.99 Right-sided heart failure I50.810 Infection due to human metapneumovirus (hMPV) B34.8
--- NOTE | 2024-07-10 13:03 | PC.NURSE ---
patient stated her pcp in [place] is not there anymore. case mgt is aware that jazmyne epperson is going. pt stated that she will probably be seeing dr tobar in [facility]. case t is working on getting her an appointment.
--- NOTE | 2024-07-10 13:39 | PC.NURSE ---
pt stated to call her flakito due to expensive co pay at the [facility]. so i called the flakito coupon to [facility] per patient and sister's request.
--- NOTE | 2024-07-10 14:10 | PC.NURSE ---
outpatient referral called [facility] for a driver guide referral in 1 week as ordered per edi of centralized scheduling to fax the needed hospital records and they will call the patient for an appointment. Faxed all the papers they needed.
== END 2024-07-10 13:46 | disposition home or self-care (01) | DRG 291 ==
LOC: ER 13:52 → CSU 16:06
PROVIDERS: Admitting Provider Family Medicine; Emergency Provider Family Medicine; PCP Family Medicine; Visit Provider Family Medicine
DX: I50.33 Acute on chronic diastolic (congestive) heart failure (principal); I26.99 Other pulmonary embolism without acute cor pulmonale; J96.21 Acute and chronic respiratory failure with hypoxia; K50.90 Crohn's disease, unspecified, without complications; I11.0 Hypertensive heart disease with heart failure; E78.5 Hyperlipidemia, unspecified; G70.00 Myasthenia gravis without (acute) exacerbation; J43.9 Emphysema, unspecified; I27.29 Other secondary pulmonary hypertension; I50.810 Right heart failure, unspecified; B34.8 Other viral infections of unspecified site
CPT/HCPCS: 36415; 71045; 71275; 76705; 80048; 80053; 81001; 83735; 83880; 84100; 84145; 84443; 84484; 85025; 85378; 85651; 85730; 86140; 87486; 87581; 87633; 93005; 93306; 93308; 93970; 94640; 94760; 96365; 96366; 96372; 96375; 96376; 99285; J1644; J1650; J1940; J2470; J2919; J7613; J7626

== ENCOUNTER → 2024-07-21 12:25 | Outpatient (BNVA) | payer MEDICARE, SELFPAY | PROVIDERS: PCP Family Medicine; Visit Provider Internal Medicine Cardiovascular Disease | DX: R42 Dizziness and giddiness (principal); I11.0 Hypertensive heart disease with heart failure; I50.810 Right heart failure, unspecified; I27.20 Pulmonary hypertension, unspecified; R05.3 Chronic cough; Z86.711 Personal history of pulmonary embolism; Z87.891 Personal history of nicotine dependence | CPT/HCPCS: 99214 ==

== ENCOUNTER → 2024-07-22 15:34 | Outpatient (BNVA) | payer MEDICARE, SELFPAY | PROVIDERS: PCP Family Medicine; Visit Provider Specialist | DX: K50.90 Crohn's disease, unspecified, without complications (principal); G70.00 Myasthenia gravis without (acute) exacerbation; I27.20 Pulmonary hypertension, unspecified; R29.90 Unspecified symptoms and signs involving the nervous system; G47.10 Hypersomnia, unspecified; R91.1 Solitary pulmonary nodule; I50.810 Right heart failure, unspecified | CPT/HCPCS: 99214 ==

== ENCOUNTER → 2024-08-18 09:06 | Outpatient (BNVA) | payer MEDICARE, SELFPAY | PROVIDERS: PCP Family Medicine; Visit Provider Nurse Practitioner Family | DX: I50.812 Chronic right heart failure (principal); I27.20 Pulmonary hypertension, unspecified; R05.3 Chronic cough; Z87.891 Personal history of nicotine dependence; I95.9 Hypotension, unspecified; Z86.711 Personal history of pulmonary embolism | CPT/HCPCS: 99213 ==

== ENCOUNTER → 2024-09-03 13:35 | Outpatient (BNVA) | payer MEDICARE, SELFPAY | PROVIDERS: PCP Family Medicine; Visit Provider Family Medicine | DX: I10 Essential (primary) hypertension (principal); I27.20 Pulmonary hypertension, unspecified; R79.89 Other specified abnormal findings of blood chemistry; M62.50 Muscle wasting and atrophy, not elsewhere classified, unspecified site; R91.1 Solitary pulmonary nodule; J43.9 Emphysema, unspecified; E03.9 Hypothyroidism, unspecified | CPT/HCPCS: 80053; 83880; 84443; 85025; 85651; 86140 ==

== ENCOUNTER 2024-09-09 14:03 | Outpatient (CLI) | payer MEDICARE, SELFPAY | END 2024-09-09 14:04 | disposition home or self-care (01) | LOC: SLEEP 14:04 | PROVIDERS: PCP Family Medicine; Visit Provider Specialist | DX: G47.33 Obstructive sleep apnea (adult) (pediatric) (principal); G47.36 Sleep related hypoventilation in conditions classified elsewhere | CPT/HCPCS: G0399 ==

== ENCOUNTER 2024-09-15 09:24 | Outpatient (CLI) | payer MEDICARE, SELFPAY ==
[2024-09-15 09:55] LABS: Basophils % 0.2 %; Eosinophils # 0.1 10^3/uL (0.0-0.8); Hematocrit 36.9 % (36-47); Lymphocytes # 1.3 10^3/uL (0.8-4.8); Lymphocytes % 9.2 %; Mean Corpuscular HGB Conc 29.8 g/dL (30-55); Mean Corpuscular Hemoglobin 25.8 pg (27-33); Mean Corpuscular Volume 86.6 fl (85-98); Mean Platelet Volume 9.8 fL (7.4-10.4); Monocytes # 0.6 10^3/uL (0.2-0.9); Neutrophils # 11.57 10^3/uL (1.8-7.7); Nucleated Red Blood Cells % 0 %; Platelet Count 301 10^3/cmm (157-399); Red Blood Count 4.26 10^6/uL (3.85-5.65); Red Cell Distribution Width 18.7 % (12.1-15.1); White Blood Count 13.61 10^3/uL (3.29-11.43)
[2024-09-15 10:21] LABS: Alanine Aminotransferase 25 U/L (0-33); Albumin Level 3.4 g/dL (3.5-5.2); Alkaline Phosphatase 130 U/L (35-105); Aspartate Amino Transferase 33 U/L (0-32); Blood Urea Nitrogen 12 mg/dL (8-23); Calcium 8.4 mg/dL (8.5-10.5); Carbon Dioxide 22 mmol/L (22-29); Chloride 110 mmol/L (98-107); Globulin 3.3 g/dL (1.3-4.6); Glucose 100 mg/dL (65-115); Osmolality Calculated 292 mOsm/kg (285-295); Sodium 141 mmol/L (136-145); Total Bilirubin 0.7 mg/dL (0.15-1.2); Total Protein 6.7 g/dL (6.6-8.7)
== END 2024-09-15 09:25 | disposition home or self-care (01) ==
PROVIDERS: PCP Family Medicine; Visit Provider Specialist
DX: R22.1 Localized swelling, mass and lump, neck (principal)
CPT/HCPCS: 36415; 80053; 85025

== ENCOUNTER 2024-09-18 11:31 | Outpatient (CLI) | payer MEDICARE, SELFPAY ==
--- NOTE | 2024-09-18 07:22 | PETR_ITS ---
PROCEDURE INFORMATION: Exam: PET/CT Skull Base to Mid-thigh Exam date and time: 09/18/2024 12:28 PM Age: 74 years old Clinical indication: Abnormal findings; Solitary pulmonary nodule; Prior surgery; Surgery date: 6+ months; Surgery type: Hyst; Additional info: R91.1 - solitary pulmonary nodule LABS AND CLINICAL REPORTS: Glucose: 99 mg/dl Treatment strategy for malignancy (PET staging): Initial Staging (PI) TECHNIQUE: Imaging protocol: Following at least four-hour fasting and following the injection of radiopharmaceutical, low dose CT images were obtained. Then, PET images were obtained. Attenuation corrected images were constructed using the CT scan. Fused images of PET and CT were reviewed. The standardized uptake values (SUV) reported below are maximum values within a region of interest, expressed in gm/ml. Exam includes orbital meatal line to mid-thigh. SUV normalization method: BodyWeight Radiopharmaceutical: 10.56 mCi F-18 FDG (Fluorodeoxyglucose), IV. Time of imaging post radiopharmaceutical administration: 45 minutes Injection site: LEFT AC COMPARISON: 1. CT angio chest PE protcl [id number] 07/07/2024 2:[address] [place] [id number] 04/14/2024 11:51 PM FINDINGS: Brain: Visualized brain has normal physiologic uptake. Paranasal sinuses: Non FDG avid moderate left and mild right maxillary sinus mucosal thickening with fluid levels and frothy secretions. Pharynx: Asymmetric FDG avid right oropharyngeal nodular soft tissue thickening with involvement of the right vallecula, narrowing the right piriform sinus, and extending inferiorly toward the larynx showing SUV max 16.8 on axial image 47. Adjacent anterior midline focal FDG uptake with SUV max 5.9 on axial image 50. Larynx: No abnormal uptake. Lungs, pleura and trachea: Advanced emphysematous change throughout the lungs. FDG avid 8 mm left upper lobe nodule on axial image 80 shows SUV max 10.3. Small kxec-dfwiony-lrmd-right pleural effusions with adjacent atelectasis. Heart: Normal physiologic uptake. Cardiomegaly. Stable small pericardial effusion. Coronary arteries: Heavy coronary artery calcification. Mediastinal space: No abnormal uptake. Non FDG avid 2.4 x 1.9 cm benign-appearing cystic focus at the lower right prevertebral mediastinum just left of the aorta. Diaphragm: Moderate hiatal hernia. Linear low-level FDG uptake along the eifgu-jbqmytq-pege-left hemidiaphragms without underlying CT abnormality is likely physiologic, may be seen in the setting of hyperventilation. Liver: No abnormal uptake. Gallbladder and biliary ducts: No abnormal uptake. Pancreas: No abnormal uptake. Spleen: No abnormal uptake. Adrenal glands: No abnormal uptake. Kidneys and ureters: Normal physiologic uptake. Stomach and bowel: No abnormal uptake. Colonic diverticulosis without findings of diverticulitis. Vasculature: No abnormal uptake. Heavy systemic atherosclerotic calcification without abdominal aortic aneurysm. Lymph nodes: FDG avid right cervical lymphadenopathy. Index enlarged right jugulodigastric node measures approximately 2 cm in the short axis on axial image 42 and shows SUV max 16.6. Lower right neck FDG uptake showing SUV max 18.2 on axial image 53 appears to overlie the right internal jugular vein versus lymph node. There is also FDG avid focal nodularity at the right platysma measuring 0.6 cm in thickness on axial image 293 with SUV max 8.4. Skeleton: Degenerative change along the spine. Right total hip arthroplasty. Small volume free pelvic fluid and mild presacral edema. Soft tissues: Linear FDG uptake along bilateral scalene musculature without underlying CT abnormality is likely physiologic muscle activation versus strain. Diffuse body wall and imaged upper thigh edema. METRICS: Mediastinal blood pool: SUV mean 1.5 Liver uptake: SUV mean 1.8. PET/PET skull to thigh INIT [id number] IMPRESSION: 1. FDG avid 8 mm left upper lobe pulmonary nodule highly suspicious for malignancy, primary versus metastasis. 2. Asymmetric FDG avid right oropharyngeal nodular soft tissue thickening involving the right vallecula and narrowing the pyriform sinus with inferior extension toward the larynx highly suspicious for malignancy. Recommend ENT evaluation. 3. FDG avid enlarged right cervical lymphadenopathy in keeping with metastatic disease. 4. Possible right internal jugular vein FDG uptake raises possibility of thrombus, possibly tumor thrombus. Alternatively, this may represent additional FDG-avid lymph node. Recommend further evaluation with ultrasound or contrast-enhanced neck CT. 5. Focal FDG avid nodularity of the right platysma concerning for metastasis. 6. Evidence of fluid overload, possibly cardiogenic, with small pericardial effusion, small vgxq-ilehouq-wupj-right pleural effusions, mild ascites, and anasarca. 7. Mild maxillary sinus disease, possibly acute. 8. Additional chronic and incidental findings as above, to include atherosclerosis, colonic diverticulosis, and advanced pulmonary emphysema.
== END 2024-09-18 11:32 | disposition home or self-care (01) ==
PROVIDERS: PCP Family Medicine; Visit Provider Family Medicine
DX: R91.1 Solitary pulmonary nodule (principal); J43.9 Emphysema, unspecified; J90 Pleural effusion, not elsewhere classified; I51.7 Cardiomegaly; I25.84 Coronary atherosclerosis due to calcified coronary lesion; K44.9 Diaphragmatic hernia without obstruction or gangrene; K57.90 Diverticulosis of intestine, part unspecified, without perforation or abscess without bleeding; R59.0 Localized enlarged lymph nodes; Z96.641 Presence of right artificial hip joint; I70.0 Atherosclerosis of aorta
CPT/HCPCS: 78815; A9552

== ENCOUNTER 2024-09-22 11:36 | Outpatient (CLI) | payer MEDICARE, SELFPAY ==
--- NOTE | 2024-09-22 11:42 | FL_ITS ---
WS: [id number] ESOPHAGRAM TECHNIQUE: Double contrast examination was performed with thin and thick barium. Upright and ARIAS imag es were obtained. CLINICAL INFORMATION: LOCALIZED SWELLING COMPARISON: None. FINDINGS: Swallowing: Normal oropharyngeal phase with no evidence of aspiration or penetration. Small amount of pooling in the vallecula which cleared with additional liquids. Esophagus: Moderate esophageal dysmotility with delayed emptying and standing column of contrast in t he upright view. No focal stricture. Moderate esophageal hiatal hernia. Evidence of esophagitis. Gastroesophageal reflux: Reflux is visualized in the supine position to the mid and upper thoracic es ophagus. Additional incomplete clearing from esophageal dysmotility noted in the supine position Aortic calcification. Osteopenia. Fluoroscopy time: 3min [id number] # of spot films: 9 FL/FL barium swallow [id number] IMPRESSION: 1. No focal stricture or obstructing mass. 2. Evidence of esophagitis likely due to reflux 3. Moderate esophageal dysmotility with delayed emptying in the upright and [place] views. 4. Reflux visualized in the supine position to the mid and upper thoracic esop hagus. 5. No focal stricture. 6. Moderate esophageal hiatal hernia. 7. No evidence of aspiration. Tiny amount of penetration with thin liquids
--- NOTE | 2024-09-22 11:42 | MR_ITS ---
WS: [id number] MRI OF THE NECK WITHOUT AND WITH GADOLINIUM ENHANCEMENT. INDICATION: RIGHT neck mass TECHNIQUE: MRI of the neck without and with gadolinium enhancement. Axial T1 and T2 coronal and T2 sa gittal T2 coronal T1 and post gadolinium imaging was obtained with fat saturation technique. FINDINGS: Comparison PET CT 09/18/2024 Again seen is the asymmetric enhancing RIGHT oropharyngeal soft tissue thickening involving the RIGHT vallecula epiglottis and aryepiglottic fold with narrowing of the RIGHT piriform sinus. This extends into the supraglottic larynx and demonstrated FDG activity on the prior PET/CT compatible with neopl asm. Enlarged enhancing FDG avid RIGHT conglomerate cervical lymphadenopathy largest measuring 2.4 x 1.7 cm. Additional enhancing RIGHT level 2 and 3 lymph nodes also demonstrate FDG activity on the omar or study. A few slightly enlarged enhancing RIGHT submandibular space lymph nodes although not FDG avid on the prior PET/CT Partially evaluated enhancing lesion in the nissa measuring 8 mm. Recommend further evaluation with MR I of the head without and with gadolinium enhancement. LEFT mastoid effusion. LEFT maxillary sinusiti s. Increased signal with enhancement RIGHT jugular vein with distention suspicious for tumor thrombus. R ecommend further evaluation with ultrasound MR/MR head orbits wo/w* [id number] IMPRESSION: 1. FDG-avid RIGHT neck mass corresponds to the prior CT findings compatible with bulky conglomerate RIGHT cervical lymphadenopathy. This involves the RIGHT jugulodigastric nodes extending into the RIGHT level 2 and 3 cervical lymph no mary ann. 2. In addition increased FDG uptake with nodular thickening involving the RIGH T vallecula and epiglottis extending into the RIGHT piriform sinus. This extend s to the level of the RIGHT arytenoid cartilage and vocal fold. No evidence of subglottic extension. This corresponds to the FDG activity on the prior PET/CT. Recommend endoscopy in further evaluation. 3. Increased signal with enhancement on the RIGHT jugular vein suspicious for tumor thrombus. Recommend further evaluation with ultrasound. 4. Indeterminant enhancement in the RIGHT aspect of the nissa measuring 8 mm ma y present incidental capillary telangiectasia but incompletely evaluated on thi s examination. This could be further evaluated with MRI of the head without and with gadolinium enhancement. Lesion not typical for metastatic disease on this limited imaging
[2024-09-22] MEDS: gadobenate dimeglumine 20 mL vial 10 ML IV (13:03)
== END 2024-09-22 11:37 | disposition home or self-care (01) ==
LOC: RAD 11:38
PROVIDERS: PCP Family Medicine; Visit Provider Specialist
DX: R22.1 Localized swelling, mass and lump, neck (principal); R94.02 Abnormal brain scan
CPT/HCPCS: 70543; 70553; 74220

== ENCOUNTER 2024-10-12 15:01 | Outpatient (CLI) | payer MEDICARE, SELFPAY ==
[2024-10-12 15:34] LABS: Basophils % 0.4 %; Eosinophils # 0.3 10^3/uL (0.0-0.8); Eosinophils % 3.1 %; Hematocrit 38.8 % (36-47); Lymphocytes # 1.3 10^3/uL (0.8-4.8); Lymphocytes % 15.8 %; Mean Corpuscular HGB Conc 29.4 g/dL (30-55); Mean Corpuscular Hemoglobin 25.9 pg (27-33); Mean Corpuscular Volume 88.2 fl (85-98); Mean Platelet Volume 9.9 fL (7.4-10.4); Monocytes # 0.6 10^3/uL (0.2-0.9); Monocytes % 6.8 %; Neutrophils # 5.96 10^3/uL (1.8-7.7); Neutrophils % 73.4 %; Nucleated Red Blood Cells % 0 %; Platelet Count 320 10^3/cmm (157-399); Red Cell Distribution Width 18.5 % (12.1-15.1); White Blood Count 8.11 10^3/uL (3.29-11.43)
[2024-10-12 15:37] LABS: Bilirubin Urine Negative (Negative); Blood Urine Negative (Negative); Glucose Urine UA Negative (Normal); Ketones Urine Negative (Negative); Leukocyte Esterase Urine Negative (Negative); Nitrate Urine Negative (Negative); Protein Urine 1+ (Negative); Specific Gravity, Urine 1.026 (1.005-1.030); Urine Appearance Clear (CLEAR); Urine Color Yellow (Yellow)
[2024-10-12 15:42] LABS: Bacteria Urine None Seen /hpf; RBC Urine 0-2 /hpf (0-2); Squamous Epithelial Cell Urine 0-5 /hpf (0-5); WBC Urine 0-5 /hpf (0-5)
[2024-10-12 15:56] LABS: Albumin Level 3.7 g/dL (3.5-5.2); Anion Gap 13.2 (5-19); Blood Urea Nitrogen 13 mg/dL (8-23); Calcium 9.3 mg/dL (8.5-10.5); Carbon Dioxide 25 mmol/L (22-29); Chloride 108 mmol/L (98-107); Glucose 128 mg/dL (65-115); Phosphorus 4.3 mg/dL (2.5-4.5); Potassium 4.2 mmol/L (3.5-5.1); Sodium 142 mmol/L (136-145)
[2024-10-12 15:57] LABS: Creatinine Urine, Random 171 mg/dL (28-217); Microalbum Creatinine Ratio Ur 53 mg/dL (0-20); Microalbumin Random Urine 9 ug/dL (0-20)
== END 2024-10-12 15:02 | disposition home or self-care (01) ==
LOC: LAB 15:04
PROVIDERS: PCP Family Medicine; Visit Provider Internal Medicine
DX: N17.0 Acute kidney failure with tubular necrosis (principal)
CPT/HCPCS: 36415; 80069; 81001; 82044; 85025

== ENCOUNTER 2024-10-12 15:29 | Oncology outpatient (recurring) (ONCR) | payer MEDICARE, SELFPAY | END 2024-10-30 23:59 | disposition home or self-care (01) | PROVIDERS: PCP Family Medicine; Visit Provider Internal Medicine Medical Oncology | DX: Z53.9 Procedure and treatment not carried out, unspecified reason (principal); C14.0 Malignant neoplasm of pharynx, unspecified | CPT/HCPCS: 99205 ==

== ENCOUNTER → 2024-10-21 14:45 | Outpatient (BNVA) | payer MEDICARE, SELFPAY | PROVIDERS: PCP Family Medicine; Visit Provider Specialist | DX: G70.00 Myasthenia gravis without (acute) exacerbation (principal); R29.90 Unspecified symptoms and signs involving the nervous system; G47.10 Hypersomnia, unspecified; R91.1 Solitary pulmonary nodule; I27.20 Pulmonary hypertension, unspecified; I50.812 Chronic right heart failure | CPT/HCPCS: 99214 ==

== ENCOUNTER 2024-10-28 10:25 | Outpatient (CLI) | payer MEDICARE, SELFPAY ==
[2024-10-28 11:18] LABS: Basophils % 0.3 %; Eosinophils # 0.1 10^3/uL (0.0-0.8); Eosinophils % 1.3 %; Hematocrit 42.9 % (36-47); Lymphocytes # 1.3 10^3/uL (0.8-4.8); Lymphocytes % 13.7 %; Mean Corpuscular HGB Conc 30.3 g/dL (30-55); Mean Corpuscular Hemoglobin 26.6 pg (27-33); Mean Corpuscular Volume 87.7 fl (85-98); Mean Platelet Volume 10.1 fL (7.4-10.4); Monocytes # 0.6 10^3/uL (0.2-0.9); Monocytes % 5.6 %; Neutrophils % 78.6 %; Nucleated Red Blood Cells % 0 %; Platelet Count 306 10^3/cmm (157-399); Red Blood Count 4.89 10^6/uL (3.85-5.65); Red Cell Distribution Width 17.7 % (12.1-15.1)
[2024-10-28 11:25] LABS: Bilirubin Urine Negative (Negative); Blood Urine Trace (Negative); Glucose Urine UA Negative (Normal); Ketones Urine Negative (Negative); Leukocyte Esterase Urine Negative (Negative); Nitrate Urine Negative (Negative); Protein Urine Trace (Negative); Specific Gravity, Urine 1.018 (1.005-1.030); Urine Appearance Clear (CLEAR); Urine Color Yellow (Yellow); Urobilinogen Urine 0.2 mg/dL (Negative); pH Urine 5.5 (5-7)
[2024-10-28 11:30] LABS: Bacteria Urine None Seen /hpf; Hyaline Casts Urine 0.81 /lpf; RBC Urine 0-2 /hpf (0-2); Squamous Epithelial Cell Urine 0-5 /hpf (0-5); WBC Urine 0-5 /hpf (0-5)
[2024-10-28 11:38] LABS: Albumin Level 3.8 g/dL (3.5-5.2); Anion Gap 16.1 (5-19); Blood Urea Nitrogen 15 mg/dL (8-23); Calcium 9.3 mg/dL (8.5-10.5); Carbon Dioxide 22 mmol/L (22-29); Chloride 106 mmol/L (98-107); Glucose 98 mg/dL (65-115); Phosphorus 4.3 mg/dL (2.5-4.5); Potassium 4.1 mmol/L (3.5-5.1); Sodium 140 mmol/L (136-145)
[2024-10-28 11:45] LABS: Creatinine Urine, Random 79 mg/dL (28-217); Microalbumin Random Urine 9 ug/dL (0-20)
[2024-10-28 11:46] LABS: Microalbum Creatinine Ratio Ur 114 mg/dL (0-20)
== END 2024-10-28 10:26 | disposition home or self-care (01) ==
PROVIDERS: Specialist; PCP Family Medicine; Visit Provider Internal Medicine
DX: N17.0 Acute kidney failure with tubular necrosis (principal); G70.00 Myasthenia gravis without (acute) exacerbation
CPT/HCPCS: 36415; 80069; 81001; 82044; 83516; 83519; 85025

== ENCOUNTER 2024-11-17 06:00 | Oncology outpatient (recurring) (ONCR) | payer MEDICARE, SELFPAY ==
--- NOTE | 2024-11-10 11:14 | N.ONRAD NP_ITS ---
Radiation Oncology New Patient Visit Patient: Darling Gonzalez MR#: [id number] : 1950 Age: 74 Sex: Female Dictated by: Dr. Claudia Robles Date of Service: 11/10/2024 Referring Physician(s) : Dr. 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 Chief Complaint / History of Present Illness: Patient is a 74-year-old lady who said she had laryngitis over the summer. Shortly after the laryngitis cleared up she developed adenopathy in the left side of her neck. She said she spent 4 to 5 months trying to get someone to pay attention to the mass in her neck. She said her primary care physician left and then she was without a doctor for 6 to 8 weeks which caused further delay. Once her new physician met with her however she was sent for a biopsy. Unfortunately it took 3 different attempts to get an appropriate and adequate amount of tissue. The most recent biopsy has shown a grade 3 squamous of carcinoma of the piriform sinus which was p16 negative. She is here today to discuss combined modality therapy as her PET scan showed asymmetric right oropharyngeal thickening with uptake in the piriform sinus. She was also noted to have enlarged right cervical adenopathy and an 8 mm left upper lobe pulmonary nodule she also had some uptake in the right platysma which was focal and nodule in shape and size. She is seen today in consultation to discuss combined modality therapy. Subjectively she is been able to maintain her weight the last few weeks at 104. She has lost about 15 to 20 pounds since she began to develop symptoms. Current Medications: albuterol sulfate 2.5 mg (3 mL) inhalation QID PRN albuterol sulfate 90 mcg/actuation 1 inh inhalation Q6H PRN apixaban (Eliquis) 5 mg PO BID atorvastatin 20 mg PO QPM benzonatate 100 mg PO TID betamethasone dipropionate 0.05% 1 applic topical PRN PRN calcium carbonate 600 mg PO DAILY cetirizine (Zyrtec) 10 mg PO DAILY cholecalciferol (vitamin D3) 1,250 mcg PO Q30D fluticasone propion-salmeterol 100-50 mcg/dose (Advair Diskus) 1 inh inhalation BID folic acid 1 mg PO DAILY furosemide (Lasix) 20 mg PO .prn krill oil 500 mg PO DAILY midodrine 10 mg PO TID [nebulizer machine with tubing and delivery device As directed] pantoprazole (Protonix) 40 mg PO DAILY 30 days potassium chloride ER (Klor-Con M) 30 mEq (1.5 x 20 mEq) PO DAILY 30 days pyridostigmine bromide 60 mg PO QID 90 days sildenafil (pulm.hypertension) 20 mg PO TID sod phos di, mono-K phos mono 250 mg (Phospha Neutral) 1 tab PO BID 30 days Allergies: Influenza Virus Vaccines Allergy (Intermediate, Verified 10/08/24 13:07) Numbness niacin Adverse Reaction hives,itching, ankle swelling (Intermediate, Verified 10/08/24 13:07) Medical History: No history of collagen vascular disease. No previous radiation therapy. COPD (chronic obstructive pulmonary disease) Persistent cough Pulmonary hypertension Acute kidney injury Sepsis Enrolled in chronic care management Clostridium difficile colitis Hypotension Hypokalemia Pneumonia Vitamin D deficiency B12 deficiency Acute laryngitis Myasthenia gravis Ischemic colitis History of colon polyps Myasthenia gravis Post-menopause Hypertension Hyperlipidemia COPD (chronic obstructive pulmonary disease) Crohn's disease Surgical History: Hx of colonoscopy (~2017) showed polyps which were not removed H/O oophorectomy History of hysterectomy Family History: Unknown Stroke Other CAD (coronary artery disease) Social History: Smoking and tobacco/nicotine status: former use of tobacco/nicotine Alcohol intake: current Alcohol intake frequency: holidays/special occasions only Substance/Drug Use: never Lives independently: Yes Housing: House Current occupational status: retired 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 Vital Signs: Performed on 11/10/2024 9:48 AM BMI - 17.852 kg/m2 (low), Height - 64 in, Weight - 104 lbs, Temperature - 98.5 f, Pulse - 82 /min, Respiration - 15 /min, O2 Sat - 91 % (low), Pain - 0, Fatigue - 0 and BP - 113/ 78 mm(hg). Physical Exam: General: Patient is in no apparent distress. She is companied by her daughter HEENT: Normocephalic atraumatic. Pupils equal, sclera clear, extraocular muscles intact. She has palpable adenopathy in the right neck. Pulmonary: Respiratory rate is regular nonlabored. Oxygen cannula is in place. Cardiovascular: Regular rate and rhythm Abdomen: Patient is quite cachectic with minimal adipose tissue Extremities: No edema or lymphedema is noted in the upper or lower extremities Neurological: Alert and orient x 3. 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 She is actually anxious to get started since she has been dealing with this for so long now. We talked about the simulation process. We reviewed the daily treatment regiment. We discussed the risks and side effects both acute and long-term. This point she had no additional questions. I encouraged her to write down any questions she might have and we be happy to answer those if she comes for her treatment. Will get her scheduled for simulation and begin her treatments soon as possible coordinated with her weekly cisplatin. Plan for a 7-week course of treatment along with concurrent weekly chemo Signed by: 11/10/2024 11:12:16 AM <<Signature on File>> Time spent on patient: 45 CPT Code: * CPT Code: *
== END 2024-11-27 23:59 | disposition home or self-care (01) ==
PROVIDERS: PCP Family Medicine; Visit Provider Radiology Radiation Oncology
DX: Z51.0 Encounter for antineoplastic radiation therapy (principal); C12 Malignant neoplasm of pyriform sinus
CPT/HCPCS: 77300; 77301; 77334; 77338; 77470; 99205; 99213; 99214

== ENCOUNTER → 2024-11-17 10:22 | Outpatient (BNVA) | payer MEDICARE, SELFPAY | PROVIDERS: PCP Family Medicine; Visit Provider Surgery | DX: Z95.828 Presence of other vascular implants and grafts (principal) | CPT/HCPCS: 99214 ==

== ENCOUNTER 2024-11-23 05:52 | Day surgery (SDC) | payer MEDICARE, SELFPAY ==
[2024-11-23] VITALS (8 sets, daily range): BP systolic 120–137; BP diastolic 79–93; PULSE 81–94; RESP 18–20; TEMP 36.6–36.8; O2SAT 90–100; BMI 17.8
--- NOTE | 2024-11-23 05:46 | W.PM.OPSUD ---
Surgery/Procedure H&P Update DATE OF PROCEDURE: November 23, 2024 DATE H&P PERFORMED: 11/17/24 H&P UPDATE INFORMATION: I have reviewed H&P completed within last 30 days, I have examined patient prior to procedure, No changes to prior documentation and H&P is in [facility] on date indicated PLANNED PROCEDURE: Operation Date: 11/23/24 07:00 Proposed Procedures p Portacath Placement 53890, C10.8(Not Applicable) - Chavez Guo MD
[2024-11-23] MEDS: sodium chloride 0.9% 1,000 ML 30 ML IV (06:37)
--- NOTE | 2024-11-23 07:05 | SC_ITS ---
WS: [id number] INTRAOPERATIVE TECHNIQUE: 3 Spot fluoroscopic images for intraoperative purposes. FLUOROSCOPY TIME: 21.1 seconds CLINICAL INFORMATION: OR PICS FINDINGS: LEFT Port-A-Cath with tip in the SVC. SC/C-arm FL for CVA [id number] IMPRESSION: Images obtained for intraoperative purposes.
--- NOTE | 2024-11-23 07:10 | ANES.PREANE2 ---
Pre-Anesthetic Assessment Height/Weight: Height 1.63 m Weight 47.174 kg Temp 98 F 11/23/24 06:14 Operation Date: 11/23/24 07:00 Proposed Procedures p Portacath Placement 53632, C10.8(Not Applicable) - Chavez Guo MD Familial anesthetic complications: None Last intake: Intake Last Liquid Date 11/22/24 Last Liquid Time 17:00 Last Solid Date 11/22/24 Last Solid Time 17:00 Social No alcohol and No tobacco Exam alert, oriented x 3, clear to auscultation bilaterally and regular rate & rhythm Airway Mallampati: Class II Dentition: false Pulmonary Chronic Obstructive Pulmonary Disease CV/HEM Congestive Heart Failure (RHF) PUlmonary HTN, hx PE GI Gastroesophageal Reflux Disease Metabolic Hyperlipidemia Musc/el myasthenia gravis Anesthetic Plan ASA status: 4 Anesthesia: MAC Other: Discussed with patient that she is high risk patient due to complex her various medical conditions and airway status. Explained need to keep anesthesia use to as minimum as necessary to decrease risk of apnea. Patient educated she will be aware for procedure. Risk of > 500 ml blood loss (7ml/kg in children): No Medications/Allergies Home Medications ?Medication ?Instructions ?Recorded ?Confirmed ?Last Taken ?Type krill oil 500 mg capsule 500 mg PO DAILY #90 caps 11/03/20 11/23/24 11/22/24 Rx atorvastatin 20 mg tablet 20 mg PO QPM 02/14/24 11/23/24 11/22/24 History pantoprazole 40 mg tablet,delayed 40 mg PO DAILY 30 days #60 tabs 05/27/24 11/23/24 11/22/24 Rx release (Protonix) albuterol sulfate 2.5 mg/3 mL 2.5 mg (3 mL) inhalation QID PRN 07/03/24 11/20/24 07/05/24 Rx (0.083 %) solution for nebulization shortness of breath or wheezing #180 mL nebulizer machine with tubing and #1 ea 07/03/24 11/17/24 Unknown Rx delivery device betamethasone dipropionate 0.05 % 1 applic topical PRN PRN Itching 07/06/24 11/20/24 Unknown History topical ointment folic acid 1 mg tablet 1 mg PO DAILY #30 tabs 08/25/24 11/23/24 11/22/24 Rx furosemide 20 mg tablet (Lasix) 20 mg PO .prn #7 tabs 08/25/24 11/20/24 Unknown Rx albuterol sulfate 90 mcg/actuation 1 inh inhalation Q6H PRN shortness 09/11/24 11/20/24 Unknown Rx aerosol inhaler of breath or wheezing #8.5 grams apixaban 5 mg tablet (Eliquis) 5 mg PO BID #180 tabs 09/11/24 11/20/24 11/13/24 Rx potassium chloride 20 mEq 30 meq (1.5 x 20 mEq) PO DAILY 30 09/14/24 11/20/24 11/19/24 Rx tablet,extended days #45 tabs release(part/cryst) (Klor-Con M) lorazepam 1 mg tablet 0.5 - 1 mg (0.5 - 1 x 1 mg) PO Q6H 11/11/24 11/23/24 11/22/24 Rx PRN severe nausea #30 tabs prochlorperazine maleate 10 mg 10 mg PO Q4H PRN mild nausea #30 11/11/24 11/20/24 Unknown Rx tablet (Compazine) tabs calcium carbonate 600 mg PO DAILY #90 tabs 11/12/24 11/23/24 11/22/24 Rx fluticasone fur. 100 mcg-umeclid 1 inh inhalation DAILY #28 ea 11/12/24 11/23/24 11/22/24 Rx 62.5 mcg-vilant 25 mcg inhalat.powder (Trelegy Ellipta) manual wheel Chair, leg rest, high #1 ea 11/12/24 11/17/24 Unknown Rx back oxygen supplementation with #1 ea 11/12/24 11/17/24 Unknown Rx portable concentrator pyridostigmine bromide 60 mg 60 mg PO QID 11/20/24 11/20/24 11/20/24 History tablet (Mestinon) Allergies Allergy/AdvReac Type Severity Reaction Status Date / Time Influenza Virus Vaccines Allergy Intermediate Numbness Verified 11/20/24 12:06 niacin AdvReac Intermediate hives,itching, Verified 11/20/24 12:06 ankle swelling Current Medications Generic Name Dose Route Start Last Admin Trade Name Freq PRN Reason Stop Dose Admin Sodium Chloride 1,000 mls @ 30 mls/hr 11/23/24 06:00 11/23/24 06:37 Sodium Chloride 0.9% IV 11/24/24 05:59 30 mls/hr .Q24H VANGIE Administration PFSH Anesthesia Medical History COPD (chronic obstructive pulmonary disease) Persistent cough Pulmonary hypertension Acute kidney injury Sepsis Enrolled in chronic care management Clostridium difficile colitis Hypotension Hypokalemia Pneumonia Vitamin D deficiency B12 deficiency Acute laryngitis Myasthenia gravis Ischemic colitis History of colon polyps Myasthenia gravis Post-menopause Hypertension Hyperlipidemia COPD (chronic obstructive pulmonary disease) Crohn's disease Surgical History Hx of colonoscopy (~2017) showed polyps which were not removed H/O oophorectomy History of hysterectomy Family History Unknown Stroke Other CAD (coronary artery disease) Social History Smoking and tobacco/nicotine status: former use of tobacco/nicotine (quit 2007) Alcohol intake: current Alcohol intake frequency: holidays/special occasions only Substance/Drug Use: never Lives independently: Yes Housing: House Current occupational status: retired 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
[2024-11-23] MEDS: ceFAZolin 2,000 mg SDV 2000 MG IVP (07:30)
[2024-11-23] MEDS: lidocaine-epi 1% PF 1:200,000 30 mL SDV INJECTION (07:45)
[2024-11-23] MEDS: heparin, porcine 1,000 unit/mL INJ 10 mL 6000 UNIT IRRIGATION (07:57)
--- NOTE | 2024-11-23 08:27 | PM.OP ---
Operative Report Date of procedure: November 23, 2024 Pre-op diagnosis: Pharyngeal cancer Post-op diagnosis: Same Post-op findings: Completely obliterated right IJ vein as noted with ultrasound. Left IJ appeared patent with only minimal intraluminal echogenicity on the distal portion. Procedure done: Placement of left IJ Port-A-Cath Implants: Bard Port-A-Cath Specimens removed/disposition: None Surgeon: Chavez Guo MD Environmental Programs Manager: ANABEL OR Staff Estimated blood loss: 10 Complications: none Brief History: 74-year-old female with history of colon cancer who presents to my office for evaluation for possible Port-A-Cath placement to receive therapy. After discussion of all risk benefits documented my note with side to proceed. Procedure: Patient was brought into the OR, he was placed in a supine position, moderate anesthesia sedation was given. Timeout was conducted after the skin was prepped and draped in the usual sterile fashion. I then proceeded to identify the left IJ vein with ultrasound, I infiltrated local anesthesia on top of the vein. I then proceeded to cannulate the vein under direct ultrasound guidance using an 18-gauge needle, the needle tip was seen entering the vein and immediate return of blood was noted. A wire was advanced through the needle and the needle was removed. The position of the wire was verified with ultrasound and fluoroscopy. The wire was then fixed to the drapes. I then placed my attention to the chest, local anesthesia was infiltrated in the previously marked area on the left upper chest and then a tract connecting the chest to the wire insertion site in the neck. I then proceeded to make a 3.5 cm incision in the left upper chest, the incision was deepened to subcutaneous tissue with electrocautery and electrocautery was used to create the subcutaneous pocket to house the Port-A-Cath. I then proceeded to use a hemostat to create a tunnel from the chest wound to the neck. I then proceeded to make a 0.5 cm incision at the level of the wire insertion site in the neck. Hemostasis was verified. I then placed the Port-A-Cath in the pocket and tunneled the catheter using the provided tunneler. The catheter was cut to appropriate length under fluoroscopy guidance and then flushed. I then proceeded to insert an introducer with a peel-off sheath over the wire under direct fluoroscopic guidance. I then remove the wire and the introducer leaving the peel-off sheath in place. The catheter was then advanced through the peel-off sheath and the peel-off sheath was removed leaving the catheter in place. Fluoroscopy showed evidence of Adequate catheter position. I then proceeded to access the port; the port was retrieving blood and flushing fine, I then hep-locked the catheter. Hemostasis was verified. The wound was closed in layers using #3-0 Vicryl for the subcutaneous tissue and #4 Monocryl for the skin. Dermabond was applied. At the end of the procedure all counts were correct. The patient tolerated well the procedure and was transferred to the PACU in stable condition.
--- NOTE | 2024-11-23 08:35 | PC.NURSE ---
0830 - noted coarse breath sounds bilaterally upon arrival to pacu per Mirna RN
--- NOTE | 2024-11-23 09:35 | ANE.PACU2 ---
Inpatient post-anesthesia follow up: Airway intact: Yes Vital signs: Temperature 97.8 F Pulse Rate 94 Respiratory Rate 18 Blood Pressure 131/91 Pulse Oximetry 100 Oxygen Delivery Me thod Nasal Cannula Oxygen Flow Rate 4 Fraction of Inspir ed Oxygen Hydration adequate: Yes Nausea and vomiting: No Pain level: 1 Mental status: Baseline
== END 2024-11-23 09:37 | disposition home or self-care (01) ==
PROVIDERS: PCP Family Medicine; Visit Provider Surgery
PROC: (CPT 36561; principal; 2024-11-23 07:00)
DX: C10.9 Malignant neoplasm of oropharynx, unspecified (principal); J44.9 Chronic obstructive pulmonary disease, unspecified; I10 Essential (primary) hypertension; E78.5 Hyperlipidemia, unspecified; K50.90 Crohn's disease, unspecified, without complications; G70.00 Myasthenia gravis without (acute) exacerbation; Z87.891 Personal history of nicotine dependence; Z79.899 Other long term (current) drug therapy
CPT/HCPCS: 36561; 76000; 77001; C1788; J0690; J1644; J2250; J2704; J7030

== ENCOUNTER 2024-11-27 15:14 | Inpatient (IN) | payer MEDICARE, SELFPAY ==
[2024-11-27] VITALS (21 sets, daily range): BP systolic 121–151; BP diastolic 82–98; PULSE 93–135; RESP 18–31; TEMP 36.6; O2SAT 86–100; BMI 17.2
--- NOTE | 2024-11-27 15:44 | XRR_ITS ---
PROCEDURE INFORMATION: Exam: XR Chest Exam date and time: 11/27/2024 3:57 PM Age: 74 years old Clinical indication: Cough and dyspnea and shortness of breath; Additional info: Dyspnea/cough TECHNIQUE: Imaging protocol: Radiologic exam of the chest. Views: 1 view. COMPARISON: CR XR chest 1V portable [id number] 07/08/2024 2:12 PM FINDINGS: Tubes, catheters and devices: Left chest port terminates in the mid SVC. Lungs: Retrocardiac opacity. Hyperinflated lungs. Pleural spaces: No evident pleural effusion. No pneumothorax. Heart/Mediastinum: No cardiomegaly. Bones/joints: Unremarkable. XR/XR chest 1V portable [id number] IMPRESSION: Retrocardiac opacity suspicious for pneumonia.
--- NOTE | 2024-11-27 15:44 | ECG_ITS ---
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 Measurements Intervals [place] Rate: 90 P: 88 DE: 205 QRS: 90 QRSD: 61 T: 83 QT: 423 QTc: 518 Interpretive Statements SUPRAVENTRICULAR RHYTHM SEPTAL MYOCARDIAL INFARCTION , OF INDETERMINATE AGE [40+ ms Q WAVE IN V1/V2] BASELINE ARTIFACT Compared to ECG 07/06/2024 21:58:00 ST (T wave) deviation now present Myocardial infarct finding still present Electronically Signed On 11-28-2024 07:41:12 AUTOMOTIVE REPAIR TECHNICIAN by Rickey Almendarez M.D. [id number]
--- NOTE | 2024-11-27 15:45 | ED_ITS ---
HPI - SOB/Dyspnea 2 General: Chief Complaint: Shortness of Breath/Dyspnea Stated Complaint: SOB Time Seen by Provider: 11/27/24 15:43 History of Present Illness: HPI Narrative: 74-year-old female presents to the emerg ency room with complaint of shortness of breath with nearly any activity. She is chronically on oxygen due to COPD normally wears 2 to 4 L is up to 6 L by nasal cannula when he came in the room. She has very poor circulation is difficult to get an oximetry reading on her. She denies any chest or abdominal pain she has a history of myasthenia gravis she had seen her neurologist recently and then felt that she was having a recurrence of her myasthenia. She is on Mestinon 60 mg 4 times daily. Associated symptoms: Deny abdominal pain, chest pain or fever(s) Related Data Home Medications ?Medication ?Instructions ?Recorded ?Confirmed pyridostigmine bromide 60 mg 60 mg PO QID 11/20/24 tablet (Mestinon) Previous Rx's ?Medication ?Instructions ?Recorded krill oil 500 mg capsule 500 mg PO DAILY #90 caps 01/18 pantoprazole 40 mg tablet,delayed 40 mg PO DAILY 30 da ys #60 tabs 05/27/24 release (Protonix) albuterol sulfate 2.5 mg/3 mL 2.5 mg (3 mL) inhalation QID PRN 07/03/24 (0.083 %) solution for nebulization shortness of breat h or wheezing #180 mL nebulizer machine with tubing and #1 ea 07/03/24 delivery device folic acid 1 mg tablet 1 mg PO DAILY #30 tabs 08/25 furosemide 20 mg tablet (Lasix) 20 mg PO .prn #7 tabs 08/25/24 albuterol sulfate 90 mcg/actuation 1 inh inhalation Q6 H PRN shortness 09/11/24 aerosol inhaler of breath or wheezing #8.5 g steven apixaban 5 mg tablet (Eliquis) 5 mg PO BID #180 tabs 1 11/12/23 potassium chloride 20 mEq 30 meq (1.5 x 20 mEq) PO RADHA LY 30 09/14/24 tablet,extended days #45 tabs release(part/cryst) (Klor-Con M) lorazepam 1 mg tablet 0.5 - 1 mg (0.5 - 1 x 1 mg) PO Q6H 11/11/24 PRN severe nausea #30 tabs prochlorperazine maleate 10 mg 10 mg PO Q4H PRN mild n ausea #30 11/11/24 tablet (Compazine) tabs calcium carbonate 600 mg PO DAILY #90 tabs fluticasone fur. 100 mcg-umeclid 1 inh inhalation NOAH Y #28 ea 11/12/24 62.5 mcg-vilant 25 mcg inhalat.powder (Trelegy Ellipta) manual wheel Chair, leg rest, high #1 ea 11/12/24 back oxygen supplementation with #1 ea 11/12/24 portable concentrator oxycodone 5 mg tablet 5 mg PO Q8H PRN pain 5 days #14 11/23/24 tabs Allergies Allergy/AdvReac Type Severity Reaction Status Date / Time Influenza Virus Vaccines Allergy Intermediate Numbness Verified 11/20/24 12:06 niacin AdvReac Intermediate hives,itching, Verified 11/20/24 12:06 ankle swelling Review of Systems 2 Const: Denies: fever(s) or chills Card: Denies: chest pain Resp: Denies: dyspnea GI: Denies: abdominal pain : Denies: dysuria, urinary frequency or urinary urgency Musc: Denies: neck pain or back pain Skin/Breast: Denies: rash PFSH ED 2 PFSH: Medical History Myasthenia gravis COPD (chronic obstructive pulmonary disease) Persistent cough Pulmonary hypertension Acute kidney injury Sepsis Enrolled in chronic care management Clostridium difficile colitis Hypotension Hypokalemia Pneumonia Vitamin D deficiency B12 deficiency Acute laryngitis Myasthenia gravis Ischemic colitis History of colon polyps Post-menopause Hypertension Hyperlipidemia COPD (chronic obstructive pulmonary disease) Crohn's disease Surgical History Hx of colonoscopy (~2018) showed polyps which were not removed H/O oophorectomy History of hysterectomy Family History Unknown Stroke Other CAD (coronary artery disease) Social History Smoking and tobacco/nicotine status: former use of tobacco/nicotine (quit 2007) Alcohol intake: current Alcohol intake frequency: holidays/special occasions only Substance/Drug Use: never Lives independently: Yes Housing: House Current occupational status: retired 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 Current gender identity: Female Physical Exam 2 Const: GENERAL APPEARANCE: cooperative ORIENTATION/CONSCIOUSNESS: Yes awake, Yes oriented to person, Yes oriented to place and Yes oriented to time HENMT: COMMON NORMALS: normocephalic, atraumatic and hearing grossly normal bilaterally HEAD & SCALP: normocephalic and atraumatic Resp: EFFORT & INSPECTION: Yes tachypneic and Yes labored AUSCULTATION: r honchi and wheezes Cardio: COMMON NORMALS: No murmurs present (Cardio) RATE: tachycardic GI: COMMON NORMALS: Soft to palpation and No hepatosplenomegaly present A USCULTATION: Yes normoactive bowel sounds PALPATION: Yes Soft to palpation, No Tenderness to palpation present (GI), No Guarding due to palpation present (GI) and Yes No hepatosplenomegaly present Extremity: COMMON NORMALS: normal to inspection, capillary refill normal and no calf tenderness GENERAL: Yes edema (Lower extremities) Neuro: SENSORIUM/ORIENTATION: Yes oriented to person, Yes oriented to place and Yes oriented to time Skin: COMMON NORMALS: no rashes or lesions noted GENERAL SKIN EXAM: no rashes or lesions noted Course 2 Vital Signs: Vital signs: Vital Signs Temperature 97.5 F L 11/28/24 06:31 Pulse Rate 102 H 11/28/24 11:23 Respiratory Rate 18 11/28/24 11:23 Blood Pressure 118/81 11/28/24 10:00 Pulse Oximetry 98 11/28/24 11:23 Oxygen Delivery Me thod Nasal Cannula 11/28/24 11:23 Oxygen Flow Rate 5 11/28/24 11:23 MDM - SOB/Dyspnea Medical Decision Making Multiple medical problems patient has acute pneumonia acute hypoxic respiratory failure worsening myasthenia gravis her troponin is elevated she has pulmonary hypertension history of pulmonary embolism she has a dilated right ventricle. She is septic. She was given a small bolus of fluids of 500 because of her right-sided heart failure that was is much as I felt she could tolerate initially. She is exacerbation of her myasthenia gravis as well. Dr. Willett has come and seen and recommends IVIG. Dr. Burrows and I had a long discussion with the patient she does not wish to be intubated but does wish other interventions. Orders written for admission Medical Records I reviewed the patient's medical records. Lab Data I reviewed the patient's lab results. 11/28/24 05:31 11/28/24 05:31 Labs/Radiology: Radiology Impressions Chest X-Ray 11/27/24 15:44 IMPRESSION: Retrocardiac opacity suspicious for pneumonia. Chest/Abdomen/Pelvis CT 11/27/24 17:16 IMPRESSION: 1. Small volume left pleural effusion with ill-defined left basilar opacity which could reflect corresponding atelectasis or pneumonia. 2. Severe emphysematous changes of the lungs. 3. 9 mm nodule in the left upper lung. IMPRESSION: 1. Edematous wall thickening of the gallbladder. Would suggest right upper quadrant ultrasound for further evaluation. 2. Nonspecific small volume free fluid in the abdomen/pelvis and moderate anasarca. COMMENTS: Consistent with the [employer]'s Incidental Findings Committee white paper (J Am Myles Radiol 2018): Any incidental renal lesion less than 1 cm or classified as too small to characterize, or any incidental cystic renal lesion characterized as simple-appearing, is likely benign. No follow-up imaging is recommended for these lesions per consensus recommendations based on imaging criteria. Laboratory Results WBC 14.76 10^3/uL (3.29-11.43) H 11/27/24 16:33 RBC 4.56 10^6/uL (3.85-5.65) 11/27/24 16:33 Hgb 11.60 g/dL (11.27-16.99) 11/27/24 16:33 Hct 38.6 % (36-47) 11/27/24 16:33 MCV 84.6 fl (85-98) L 11/27/24 16:33 MCH 25.4 pg (27-33) L 11/27/24 16:33 MCHC 30.1 g/dL (30-55) 11/27/24 16:33 RDW 17.2 % (12.1-15.1) H 11/27/24 16:33 Plt Count 283 10^3/cmm (157-399) 11/27/24 16:33 MPV 10.2 fL (7.4-10.4) 11/27/24 16: Neut % (Auto) 84.9 % 11/27/24 16:33 Lymph % (Auto) 8.3 % 11/27/24 16:33 [place] % (Auto) 5.4 % 11/27/24 16: Eos % (Auto) 0.1 % 11/27/24 16: Baso % (Auto) 0.4 % 11/27/24 16: Neut # (Auto) 12.54 10^3/uL (1.8-7.7) H 11/27/24 16: Lymph # (Auto) 1.2 10^3/uL (0.8-4.8) 11/27/24 16:33 [place] # (Auto) 0.8 10^3/uL (0.2-0.9) 11/27/24 16: Eos # (Auto) 0.0 10^3/uL (0.0-0.8) 11/27/24 16: Baso # (Auto) 0.1 10^3/uL (0.0-0.1) 11/27/24 16: Nucleated RBC % (auto) 0 % 11/27/24 16: Nucleated RBCs # 0.0 /100WBC 11/27/24 16:33 Specimen Type Arterial 11/27/24 15:50 Sample Site Brachial, right 11/27/24 15:50 ABG pH 7.37 (7.35-7.45) 11/27/24 15:50 ABG pCO2 23.5 mmHg (35-45) L 11/27/24 15:50 ABG pO2 70.1 mmHg (80.0-100.0) L 11/27/24 15:50 ABG PO2/FiO2 Ratio 175 11/27/24 15:50 ABG HCO3 13.7 mmol/L (22-26) L 11/27/24 15:50 ABG O2 Saturation 92.4 11/27/24 15:50 ABG Base Excess -10.0 mmol/L (-2.0-2.0) L 11/27/24 15:50 [place]ard Test Pos 11/27/24 15:50 A-a O2 Gradient 23.6 mmHg (5-10) H 11/27/24 15:50 Hematocrit 34.4 % (37-47) L 11/27/24 15:50 Hgb O2 Saturation 90.9 % (95-100) L 11/27/24 15:50 Carboxyhemoglobin 1.3 %THgb (0.4-20.1) 11/27/24 15:50 Methemoglobin 0.3 % (0.4-1.5) L 11/27/24 15:50 Total Hemoglobin 11.2 g/dL (12-16) L 11/27/24 15:50 Sodium 143.0 mmol/L (131-143) 11/27/24 15:50 Potassium 4.3 mmol/L (3.5-5.0) 11/27/24 15:50 Glucose 72.0 mg/dL (70-115) 11/27/24 15:50 Ionized Calcium 1.2 mmol/L (1.1-1.4) 11/27/24 15:50 O2 Delivery Device Nc 11/27/24 15:50 O2 Liters/Min 5.0 % 11/27/24 15:50 FiO2 40.0 % 11/27/24 15:50 Interlibrary Loan Specialist ID [place] 11/27/24 15:50 Sodium 140 mmol/L (136-145) 11/27/24 16:33 Potassium 5.3 mmol/L (3.5-5.1) H 11/27/24 16:33 Chloride 104 mmol/L (98-107) 11/27/24 16:33 Carbon Dioxide 16 mmol/L (22-29) L 11/27/24 16:33 Anion Gap 25.3 (5-19) H 11/27/24 16:33 BUN 20 mg/dL (8-23) 11/27/24 16:33 Creatinine 0.9 mg/dL (0.5-0.9) 11/27/24 16:33 GFR Calculation Not Reportable 11/27/24 16:33 Glucose 72 mg/dL (65-115) 11/27/24 16:33 Calculated Osmolality 291 mOsm/kg (285-295) 11/27/24 16:33 Lactic Acid 6.4 mmol/L (0.5-2.2) H* 11/27/24 16:33 Calcium 9.8 mg/dL (8.5-10.5) 11/27/24 16:33 Total Bilirubin 1.8 mg/dL (0.15-1.2) H 11/27/24 16:33 AST 221 U/L (0-32) H 11/27/24 16:33 ALT 141 U/L (0-33) H 11/27/24 16:33 Alkaline Phosphatase 212 U/L (35-105) H 11/27/24 16:33 Creatine Kinase 286 U/L (26-192) H 11/27/24 16:33 Troponin T Baseline 232 ng/L (0-10) H* 11/27/24 16:33 Troponin T 120 Minute 136.9 ng/L (0-10) H 11/27/24 17:51 Delta Troponin T -95.1 ABS# (0-10) L 11/27/24 17:51 C-Reactive Protein 27.9 mg/L (0.0-4.9) H 11/27/24 17:51 Total Protein 8.0 g/dL (6.6-8.7) 11/27/24 16:33 Albumin 3.9 g/dL (3.5-5.2) 11/27/24 16:33 Globulin 4.1 g/dL (1.3-4.6) 11/27/24 16:33 Procalcitonin 0.40 ng/mL (0-0.5) 11/27/24 17:51 Urine Color Yellow (Yellow) 11/27/24 17:07 Urine Appearance Clear (CLEAR) 11/27/24 17:07 Urine pH 5.5 (5-7) 11/27/24 17:07 Ur Specific [place] 1.017 (1.005-1.030) 11/27/24 17:07 Urine Protein 2+ (Negative) A 11/27/24 17:07 Urine Glucose (UA) Negative (Normal) 11/27/24 17:07 Urine Ketones Negative (Negative) 11/27/24 17:07 Urine Blood Negative (Negative) 11/27/24 17:07 Urine Nitrate Negative (Negative) 11/27/24 17:07 Urine Bilirubin Negative (Negative) 11/27/24 17:07 Urine Urobilinogen 0.2 mg/dL (Negative) 11/27/24 17:07 Ur Leukocyte Esterase Negative (Negative) 11/27/24 17:07 Urine RBC 0-4 /hpf (0-2) H 11/27/24 17:07 Urine WBC 0-4 /hpf (0-5) H 11/27/24 17:07 Ur Squamous Epith Cells 0-4 /hpf (0-5) H 11/27/24 17:07 Amorphous Sediment Not Reportable 11/27/24 17:07 Urine Bacteria Trace /hpf (NONE) 11/27/24 17:07 Urine Mucus Trace /hpf 11/27/24 17:07 Influenza A (PCR) Negative (Negative) 11/27/24 17:07 Influenza Type B (PCR) Negative (Negative) 11/27/24 17:07 RSV (PCR) Negative (Negative) 11/27/24 17:07 SARS-CoV-2 (PCR) Negative (Negative) 11/27/24 17:07 All radiology interpretation(s) finalized by discharge Discharge Plan Discharge Patient Disposition: Admitted As Inpatient Admit Provider: Sky Burrows Clinical Impression: Acute on chronic hypoxic respiratory failure, Acute kidney injury, Myasthenia gravis, Right-sided heart failure, Pulmonary hypertension, Acute NM, Pneumonia, community acquired, Severe sepsis, Metastatic squamous cell carcinoma, Elevated troponin Condition: Stable Coding Level of Care Code ED Laboratory Aide for Jeny Singh
--- NOTE | 2024-11-27 15:53 | ECG_ITS ---
[facility]24[facility] Pat Name: Darling Gonzalez Department: Room: Gender: Female Senior Benefits Manager: : 1950 Requested By: Jf Aguilar Order Number: [id number] Tori MD: Rickey Almendarez M.D. Measurements Intervals [place] Rate: 95 P: 81 RI: 194 QRS: 70 QRSD: 76 T: 115 QT: 382 QTc: 480 Interpretive Statements SINUS RHYTHM LOW QRS VOLTAGE IN EXTREMITY LEADS [QRS DEFLECTION < 0.5 mV IN LIMB LEADS] INTERPRETATION BASED ON A DEFAULT AGE OF 40 YEARS Compared to ECG 11/27/2024 15:40:58 Low QRS voltage now present Myocardial infarct finding no longer present ST (T wave) deviation no longer present Electronically Signed On 11-28-2024 08:14:44 VARNISHING UNIT OPERATOR by Rickey Almendarez M.D. [email or web address]
[2024-11-27 16:03] LABS: ABG PCO2 23.5 mmHg (35-45); ABG PH Result 7.37 (7.35-7.45); Alveolar-Arterial Oxygen Gradi 23.6 mmHg (5-10); Arterial Blood Gas Hematocrit 34.4 % (37-47); Blood Gas Allen Test Pos; Blood Gas Operator Identificat MONRO; Blood Gas Sample Site Brachial, right; Blood Gas Sample Type Arterial; Carboxyhemoglobin 1.3 %THgb (0.4-20.1); HCO3 ABG 13.7 mmol/L (22-26); HGB O2 Sat 90.9 % (95-100); Ionized Calcium Level - ABG 1.2 mmol/L (1.1-1.4); Methemoglobin 0.3 % (0.4-1.5); Oxygen Device NC; Oxygen Saturation ABG 92.4; PO2 ABG 70.1 mmHg (80.0-100.0); PO2 FiO2 Ratio Arterial Blood 175; Potassium Level - ABG 4.3 mmol/L (3.5-5.0); Total Hemoglobin 11.2 g/dL (12-16)
[2024-11-27] MEDS: ipratropium-albuterol 3 mL Neb INHALATION ×3 (16:32→23:16)
[2024-11-27 16:50] LABS: Basophils # 0.1 10^3/uL (0.0-0.1); Basophils % 0.4 %; Eosinophils % 0.1 %; Hematocrit 38.6 % (36-47); Lymphocytes # 1.2 10^3/uL (0.8-4.8); Lymphocytes % 8.3 %; Mean Corpuscular HGB Conc 30.1 g/dL (30-55); Mean Corpuscular Hemoglobin 25.4 pg (27-33); Mean Corpuscular Volume 84.6 fl (85-98); Mean Platelet Volume 10.2 fL (7.4-10.4); Monocytes # 0.8 10^3/uL (0.2-0.9); Monocytes % 5.4 %; Neutrophils # 12.54 10^3/uL (1.8-7.7); Neutrophils % 84.9 %; Nucleated Red Blood Cells % 0 %; Platelet Count 283 10^3/cmm (157-399); Red Blood Count 4.56 10^6/uL (3.85-5.65); Red Cell Distribution Width 17.2 % (12.1-15.1); White Blood Count 14.76 10^3/uL (3.29-11.43)
[2024-11-27] MEDS: dexamethasone 10 mg/mL INJ IM (17:02)
[2024-11-27 17:14] LABS: Alanine Aminotransferase 141 U/L (0-33); Albumin Level 3.9 g/dL (3.5-5.2); Alkaline Phosphatase 212 U/L (35-105); Anion Gap 25.3 (5-19); Aspartate Amino Transferase 221 U/L (0-32); Blood Urea Nitrogen 20 mg/dL (8-23); Calcium 9.8 mg/dL (8.5-10.5); Carbon Dioxide 16 mmol/L (22-29); Chloride 104 mmol/L (98-107); Creatine Phosphokinase 286 U/L (26-192); Creatinine Clr Calc Pharmacy 39.8641; Globulin 4.1 g/dL (1.3-4.6); Glucose 72 mg/dL (65-115); Osmolality Calculated 291 mOsm/kg (285-295); Potassium 5.3 mmol/L (3.5-5.1); Sodium 140 mmol/L (136-145); Total Bilirubin 1.8 mg/dL (0.15-1.2)
--- NOTE | 2024-11-27 17:16 | CTR_ITS ---
PROCEDURE INFORMATION: Exam: CTA Chest With Contrast Exam date and time: 11/27/2024 5:34 PM Age: 74 years old Clinical indication: Abnormal findings; Abnormal lab test; Elevated liver enzymes and elevated wbc and other: Elevated lactic acid; Other: N/a; Dyspnea and shortness of breath; Prior surgery; Surgery date: 6+ months; Surgery type: Total hysterectomy; Dyspnea and SOB with hypoxia. Elevated wbc, liver enzymes, and lactic acid. History of pharyngeal cancer, copd, pulmonary nodules, and crohn's disease. ; Additional info: Dyspnea, hypoxia, HX pharyngeal CA w pulm nodule TECHNIQUE: Imaging protocol: Computed tomographic angiography of the chest with contrast. Exam focused on the arteries. 3D rendering (Not supervised by radiologist): MIP and/or 3D reconstructed images were created by the technologist. Radiation optimization: All CT scans at this facility use at least one of these dose optimization techniques: automated exposure control; mA and/or kV adjustment per patient size (includes targeted exams where dose is matched to clinical indication); or iterative reconstruction. Contrast material: OMNI 350; Contrast volume: 100 ml; Contrast route: INTRAVENOUS (IV); COMPARISON: CT angio chest PE protcl [id number] 07/07/2024 2:27 PM RADIATION DOSE METRICS: Total DLP (mGy-cm): 501.29 FINDINGS: Pulmonary arteries: Normal. No pulmonary emboli. Aorta: No aortic aneurysm. No aortic dissection. Lungs: Severe emphysematous changes of the lungs. 9 mm nodule noted in the left upper lobe. Ill-defined basilar opacity adjacent to the effusion in the left lung base. Pleural spaces: Small volume right pleural effusion. No pneumothorax. Heart: Cardiomegaly. No pericardial effusion. Lymph nodes: No enlarged lymph nodes. Bones/joints: No acute fracture. Soft tissues: Unremarkable. COMMENTS: The presence of pulmonary emphysema on CT is an independent risk factor for lung cancer. In the absence of a history or active diagnosis of lung cancer, it is recommended that this patient with emphysema be evaluated for enrollment in a low dose CT lung cancer screening program. PROCEDURE INFORMATION: Exam: CT Abdomen And Pelvis With Contrast Exam date and time: 11/27/2024 5:34 PM Age: 74 years old Clinical indication: Abnormal findings; Abnormal lab test; Elevated liver enzymes and elevated wbc and other: Elevated lactic acid; Other: N/a; Dyspnea and shortness of breath; Prior surgery; Surgery date: 6+ months; Surgery type: Total hysterectomy; Dyspnea and SOB with hypoxia. Elevated wbc, liver enzymes, and lactic acid. History of pharyngeal cancer, copd, pulmonary nodules, and crohn's disease. ; Additional info: Dyspnea, hypoxia, HX pharyngeal CA w pulm nodule TECHNIQUE: Imaging protocol: Computed tomography of the abdomen and pelvis with contrast. Radiation optimization: All CT scans at this facility use at least one of these dose optimization techniques: automated exposure control; mA and/or kV adjustment per patient size (includes targeted exams where dose is matched to clinical indication); or iterative reconstruction. Contrast material: OMNI 350; Contrast volume: 100 ml; Contrast route: INTRAVENOUS (IV); COMPARISON: PT PET skull to thigh INIT [id number] 09/18/2024 12:28 PM RADIATION DOSE METRICS: Total DLP (mGy-cm): 501.29 FINDINGS: Liver: Normal. No mass. Gallbladder and biliary ducts: Edematous wall thickening of the gallbladder. No calcified stones. No ductal dilation. Pancreas: Normal. No ductal dilation. Spleen: Normal. No splenomegaly. Adrenal glands: Normal. No mass. Kidneys and ureters: A couple subcentimeter cysts noted in the kidneys. No hydronephrosis. Stomach and bowel: Moderate-sized hiatal hernia containing the proximal portion of the stomach. No obstruction. No mucosal thickening. Appendix: No evidence of appendicitis. Intraperitoneal space: Small volume free fluid in the abdomen/pelvis. No free air. No significant fluid collection. Vasculature: Unremarkable. No abdominal aortic aneurysm. Lymph nodes: Unremarkable. No enlarged lymph nodes. Urinary bladder: Unremarkable as visualized. Reproductive: Hysterectomy. Bones/joints: Right hip arthroplasty. No acute fracture. Soft tissues: Moderate anasarca. CT/CT angio chest w abd pel w con IMPRESSION: 1. Small volume left pleural effusion with ill-defined left basilar opacity which could reflect corresponding atelectasis or pneumonia. 2. Severe emphysematous changes of the lungs. 3. 9 mm nodule in the left upper lung. IMPRESSION: 1. Edematous wall thickening of the gallbladder. Would suggest right upper quadrant ultrasound for further evaluation. 2. Nonspecific small volume free fluid in the abdomen/pelvis and moderate anasarca. COMMENTS: Consistent with the [employer]'s Incidental Findings Committee white paper (J Am Myles Radiol 2018): Any incidental renal lesion less than 1 cm or classified as too small to characterize, or any incidental cystic renal lesion characterized as simple-appearing, is likely benign. No follow-up imaging is recommended for these lesions per consensus recommendations based on imaging criteria.
[2024-11-27 17:17] LABS: Lactic Sepsis W/Reflex 6.4 mmol/L (0.5-2.2); Troponin(5th) Baseline 232 ng/L (0-10)
[2024-11-27 17:40] LABS: Bilirubin Urine Negative (Negative); Blood Urine Negative (Negative); Glucose Urine UA Negative (Normal); Ketones Urine Negative (Negative); Leukocyte Esterase Urine Negative (Negative); Nitrate Urine Negative (Negative); Protein Urine 2+ (Negative); Specific Gravity, Urine 1.017 (1.005-1.030); Urine Appearance Clear (CLEAR); Urine Color Yellow (Yellow); Urobilinogen Urine 0.2 mg/dL (Negative); pH Urine 5.5 (5-7)
--- NOTE | 2024-11-27 17:42 | PM.CONSULT ---
Providers/Reason For Consult Consulting Physician/Specialty*: Dr. Krishnan Reason for Consult*: Myasthenia gravis Requesting Physician: Dr. Krishnan Primary Care Provider: Solitario Gaffney DO History of Present Illness History of Present Illness Darling Gonzalez is a 74 year old woman that I have been seeing for a number of years. I see her once a year for myasthenia gravis that has never been out of control until recently. I have been seeing her once a year just to prescribe her Mestinon because normally if she does not take it she has physical weakness and diplopia but she has never previously been on immunosuppressive treatment. My last routine visit with her was in July 2023. She had multiple visits for shortness of breath, COPD exacerbation and a massive amount of weight loss through 2023 and had a prolonged stay here in March last year. She was back again in June with respiratory failure, diastolic CHF. She was discovered to have right heart failure. I sent her for sleep study but there was no evidence of significant sleep apnea, only mild. There was evidence of nocturnal hypoxemia on her sleep study. She followed up with me 10/21/2024 and she had become so weak that she could not walk across the parking lot. Please refer to my note from 10/21/2024 which detailed the progress of trying to find the origin of her cancer. I was suspicious that her myasthenia was worsening because of her cancer. She wanted to stay on oxygen and avoid CPAP and I agreed with her. Subsequently her myasthenia titers came back elevated and I talked with her and indicated that I thought that the myasthenia was the cause of her recent worsening of weakness and that I could see her January 28 as scheduled or if she felt weaker I would see her right away. She said she would let us know as she was in the process of starting chemotherapy. She has since then deteriorated markedly. She had a port placed for chemo 11/23. She is very short of breath. She has been coughing. She is having an acute OR. She is septic. Acetylcholine receptor binding antibody was elevated 18.06. Although that is elevated, the last time I tested it 04/17/2022 it was 55 so it is actually better. Receptor modulating antibody 18 (normal) Review of Systems Const: Reports: body aches, change in appetite, change in weight (Marked weight loss), fatigue, malaise and daytime sleepiness Eyes: Denies: change in vision (She has diplopia if she misses Mestinon) Resp: Reports: dyspnea and productive cough Musc: Reports: neck pain and back pain Medications/Allergies Home Medications ?Medication ?Instructions ?Recorded ?Confirmed ?Last Taken ?Type krill oil 500 mg capsule 500 mg PO DAILY #90 caps 11/03/20 11/27/24 11/27/24 Rx pantoprazole 40 mg tablet,delayed 40 mg PO DAILY 30 days #60 tabs 05/27/24 11/27/24 11/27/24 Rx release (Protonix) albuterol sulfate 2.5 mg/3 mL 2.5 mg (3 mL) inhalation QID PRN 07/03/24 11/27/24 07/05/24 Rx (0.083 %) solution for nebulization shortness of breath or wheezing #180 mL nebulizer machine with tubing and #1 ea 07/03/24 11/27/24 Unknown Rx delivery device folic acid 1 mg tablet 1 mg PO DAILY #30 tabs 08/25/24 11/27/24 11/22/24 Rx furosemide 20 mg tablet (Lasix) 20 mg PO .prn #7 tabs 08/25/24 11/27/24 Unknown Rx albuterol sulfate 90 mcg/actuation 1 inh inhalation Q6H PRN shortness 09/11/24 11/27/24 Unknown Rx aerosol inhaler of breath or wheezing #8.5 grams apixaban 5 mg tablet (Eliquis) 5 mg PO BID #180 tabs 09/11/24 11/27/24 11/27/24 Rx potassium chloride 20 mEq 30 meq (1.5 x 20 mEq) PO DAILY 30 09/14/24 11/27/24 11/27/24 Rx tablet,extended days #45 tabs release(part/cryst) (Klor-Con M) lorazepam 1 mg tablet 0.5 - 1 mg (0.5 - 1 x 1 mg) PO Q6H 11/11/24 11/27/24 11/22/24 Rx PRN severe nausea #30 tabs prochlorperazine maleate 10 mg 10 mg PO Q4H PRN mild nausea #30 11/11/24 11/27/24 Unknown Rx tablet (Compazine) tabs calcium carbonate 600 mg PO DAILY #90 tabs 11/12/24 11/27/24 11/27/24 Rx fluticasone fur. 100 mcg-umeclid 1 inh inhalation DAILY #28 ea 11/12/24 11/27/24 11/27/24 Rx 62.5 mcg-vilant 25 mcg inhalat.powder (Trelegy Ellipta) manual wheel Chair, leg rest, high #1 ea 11/12/24 11/27/24 Unknown Rx back oxygen supplementation with #1 ea 11/12/24 11/27/24 Unknown Rx portable concentrator pyridostigmine bromide 60 mg 60 mg PO QID 11/20/24 11/27/24 11/27/24 History tablet (Mestinon) oxycodone 5 mg tablet 5 mg PO Q8H PRN pain 5 days #14 11/23/24 11/27/24 Unknown Rx tabs Allergies Allergy/AdvReac Type Severity Reaction Status Date / Time Influenza Virus Vaccines Allergy Intermediate Numbness Verified 11/20/24 12:06 niacin AdvReac Intermediate hives,itching, Verified 11/20/24 12:06 ankle swelling PFSH Acute PFSH: Medical History COPD (chronic obstructive pulmonary disease) Persistent cough Pulmonary hypertension Acute kidney injury Sepsis Enrolled in chronic care management Clostridium difficile colitis Hypotension Hypokalemia Pneumonia Vitamin D deficiency B12 deficiency Acute laryngitis Myasthenia gravis Ischemic colitis History of colon polyps Myasthenia gravis Post-menopause Hypertension Hyperlipidemia COPD (chronic obstructive pulmonary disease) Crohn's disease Surgical History Hx of colonoscopy (~2017) showed polyps which were not removed H/O oophorectomy History of hysterectomy Family History Unknown Stroke Other CAD (coronary artery disease) Social History Smoking and tobacco/nicotine status: former use of tobacco/nicotine (quit 2007) Alcohol intake: current Alcohol intake frequency: holidays/special occasions only Substance/Drug Use: never Lives independently: Yes Housing: House Current occupational status: retired 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 MENTAL STATUS: She is of above average intelligence and very pleasant. CRANIAL NERVES: Full visual ness. Extraocular movements were full without nystagmus. Face was symmetric at rest and with grimace. Tongue and palate were midline at rest and with protrusion of the tongue and elevation of the palate. She is not dysarthric MOTOR: She was able to give 5 out of 5 effort in both deltoids, handgrips and lower extremity iliopsoas and ankle extensors. SENSATION: Primary modalities were intact in the four extremities distally. COORDINATION: No tremor. No myoclonus. DEEP TENDON REFLEXES: 2/4 throughout. GAIT: Not tested CARDIOVASCULAR: The heart sounds were normal without murmur or gallop. Regular rate and rhythm. Data 11/27/24 16:33 11/27/24 16:33 Micro: Microbiology 11/27/24 16:33 Blood Culture - Preliminary Blood SPECIMEN COLLECTED 11/27/24 16:38 Blood Culture - Preliminary Blood SPECIMEN COLLECTED A&P Assessment and plan (1) Myasthenia gravis: I think that her myasthenia gravis is probably the least of her problems right now. Although her performance status is rapidly deteriorated and her generalized weakness has worsened to the point that she is no longer able to walk for any distance is probably on the basis of her pulmonary disease. At the same time, her current state with her cancer could be causing an exacerbation of her myasthenia and if IVIG fits into the treatment protocol that she is receiving currently it would be useful to have her on 2 g/kg of IVIG over 5 days if possible. If that is too much of a fluid load for her heart failure I would not recommend it and it is not essential. The primary goal is to address her acute sepsis and her acute myocardial infarction and pneumonia. She is gravely ill. She is willing to be intubated if it is necessary. I would welcome anyone calling me if there are questions although I will not be in house I will be accessible by phone. Again I would recommend this patient be medically treated for her profound and life-threatening medical illnesses and if it fits into her treatment protocol to 2 treat her with IVIG for 5 days it could potentially make her performance status better. (2) Pulmonary hypertension: (3) Acute OR: (4) Pneumonia, community acquired: (5) Cancer of overlapping sites of oropharynx: (6) COPD (chronic obstructive pulmonary disease): Qualifiers: COPD type: chronic bronchitis Chronic bronchitis type: simple Qualified Code(s): J41.0 - Simple chronic bronchitis PDMP PDMP Reviewed: Not Reviewed Consult Attestations Medical Necessity Statement: Profound multisystem illness, life-threatening Coding Level of Care Code Acute Code for [facility] Fwd Diagnoses Myasthenia gravis G70.00 Pulmonary hypertension I27.20 Acute OR I21.9 Pneumonia, community acquired J18.9 Cancer of overlapping sites of oropharynx C10.8 Simple chronic bronchitis J41.0 COPD type: chronic bronchitis Chronic bronchitis type: simple
--- NOTE | 2024-11-27 17:44 | ECG_ITS ---
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 Measurements Intervals [place] Rate: 102 P: 73 MN: 206 QRS: 64 QRSD: 77 T: 127 QT: 364 QTc: 475 Interpretive Statements SINUS TACHYCARDIA LOW QRS VOLTAGE IN EXTREMITY LEADS [QRS DEFLECTION < 0.5 mV IN LIMB LEADS] POSSIBLE ANTERIOR MYOCARDIAL INFARCTION , PROBABLY OLD [30 ms Q WAVE IN V3/V4, OR R < 0.2 mV IN V4] ABNORMAL RHYTHM ECG Compared to ECG 11/27/2024 15:53:46 Myocardial infarct finding now present Sinus rhythm no longer present Electronically Signed On 11-28-2024 08:12:29 SHIRT PRESSER by Rickey Almendarez M.D. [id number] [id number]
--- NOTE | 2024-11-27 17:57 | PM.HP ---
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 She reports symptoms for 2 to 3 days. Exertion worsens symptoms. Rest improves. She notes today that the symptoms have been the worst. Endorses associated severe weakness. She states she was too sick to get up and eat today. She was too sick to do most of her ADLs today. She does live alone but has a sister and son who live close by and help her. She called out to her sister for help today who convinced her to come to the emergency department. In the emergency department, she was found to be severely septic. She was found to be in respiratory distress with acute on chronic hypoxic respiratory failure. Chest x-ray with pneumonia. CT PE of attained with radiology read pending; per my read there is severe emphysema with left basilar pneumonia present. Labs show sequela of severe sepsis with leukocytosis, hyperkalemia, metabolic acidosis, severe lactic acidosis of 6.4, transaminitis, and elevated troponins. Patient seen and evaluated initially with Dr. Krishnan. He began conversations regarding intubation due to respiratory compromise. Assisted with goals of care conversation in the ED. After prolonged discussion, patient ultimately decided to pursue DNR/DNI status. There is currently no other limitations of care. She is okay with noninvasive mechanical ventilation's another resuscitation efforts other than DNI and DNR. She has have myasthenia gravis. She follows with neurology. She is concerned that there could be a component of myasthenia gravis flare for which neurology evaluated the patient. Notes and recommendation are pending. Review of Systems Narrative: A complete review of systems was obtained and is negative except as stated in HPI. Medications/Allergies Home Medications ?Medication ?Instructions ?Recorded ?Confirmed ?Last Taken ?Type krill oil 500 mg capsule 500 mg PO DAILY #90 caps 11/03/20 11/27/24 11/27/24 Rx pantoprazole 40 mg tablet,delayed 40 mg PO DAILY 30 days #60 tabs 05/27/24 11/27/24 11/27/24 Rx release (Protonix) albuterol sulfate 2.5 mg/3 mL 2.5 mg (3 mL) inhalation QID PRN 07/03/24 11/27/24 07/05/24 Rx (0.083 %) solution for nebulization shortness of breath or wheezing #180 mL nebulizer machine with tubing and #1 ea 07/03/24 11/27/24 Unknown Rx delivery device folic acid 1 mg tablet 1 mg PO DAILY #30 tabs 08/25/24 11/27/24 11/22/24 Rx furosemide 20 mg tablet (Lasix) 20 mg PO .prn #7 tabs 08/25/24 11/27/24 Unknown Rx albuterol sulfate 90 mcg/actuation 1 inh inhalation Q6H PRN shortness 09/11/24 11/27/24 Unknown Rx aerosol inhaler of breath or wheezing #8.5 grams apixaban 5 mg tablet (Eliquis) 5 mg PO BID #180 tabs 09/11/24 11/27/24 11/27/24 Rx potassium chloride 20 mEq 30 meq (1.5 x 20 mEq) PO DAILY 30 09/14/24 11/27/24 11/27/24 Rx tablet,extended days #45 tabs release(part/cryst) (Klor-Con M) lorazepam 1 mg tablet 0.5 - 1 mg (0.5 - 1 x 1 mg) PO Q6H 11/11/24 11/27/24 11/22/24 Rx PRN severe nausea #30 tabs prochlorperazine maleate 10 mg 10 mg PO Q4H PRN mild nausea #30 11/11/24 11/27/24 Unknown Rx tablet (Compazine) tabs calcium carbonate 600 mg PO DAILY #90 tabs 11/12/24 11/27/24 11/27/24 Rx fluticasone fur. 100 mcg-umeclid 1 inh inhalation DAILY #28 ea 11/12/24 11/27/24 11/27/24 Rx 62.5 mcg-vilant 25 mcg inhalat.powder (Trelegy Ellipta) manual wheel Chair, leg rest, high #1 ea 11/12/24 11/27/24 Unknown Rx back oxygen supplementation with #1 ea 11/12/24 11/27/24 Unknown Rx portable concentrator pyridostigmine bromide 60 mg 60 mg PO QID 11/20/24 11/27/24 11/27/24 History tablet (Mestinon) oxycodone 5 mg tablet 5 mg PO Q8H PRN pain 5 days #14 11/23/24 11/27/24 Unknown Rx tabs Allergies Allergy/AdvReac Type Severity Reaction Status Date / Time Influenza Virus Vaccines Allergy Intermediate Numbness Verified 11/20/24 12:06 niacin AdvReac Intermediate hives,itching, Verified 11/20/24 12:06 ankle swelling PFSH Acute PFSH: Medical History (Updated 11/27/24 @ 18:22 by Sky Burrows MD) Myasthenia gravis COPD (chronic obstructive pulmonary disease) Persistent cough Pulmonary hypertension Acute kidney injury Sepsis Enrolled in chronic care management Clostridium difficile colitis Hypotension Hypokalemia Pneumonia Vitamin D deficiency B12 deficiency Acute laryngitis Myasthenia gravis Ischemic colitis History of colon polyps Post-menopause Hypertension Hyperlipidemia COPD (chronic obstructive pulmonary disease) Crohn's disease Surgical History Hx of colonoscopy (~2017) showed polyps which were not removed H/O oophorectomy History of hysterectomy Family History Unknown Stroke Other CAD (coronary artery disease) Social History Smoking and tobacco/nicotine status: former use of tobacco/nicotine (quit 2007) Alcohol intake: current Alcohol intake frequency: holidays/special occasions only Substance/Drug Use: never Lives independently: Yes Housing: House Current occupational status: retired 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 Frail-appearing. Ill-appearing. Head: Temporal wasting. Extraocular movements are intact. Dry mucous membranes. Neck: No JVD. Cardiovascular: RRR. No gallops. No murmurs. Lungs: Very poor air movement overall. There is left-sided rhonchi present. Difficult to appreciate wheezing there is limited air movement throughout lung ness. Tachypneic. On OxiMax. Skin: No jaundice. No rashes. Abdomen: Hypoactive bowel sounds, abdomen soft and nontender. Extremities: No cyanosis or clubbing. Musculoskeletal: No swollen or erythematous joints. Neurological: Moves all 4 extremities. No myoclonus. Data 11/27/24 16:33 11/27/24 16:33 Micro: Microbiology 11/27/24 16:33 Blood Culture - Preliminary Blood SPECIMEN COLLECTED 11/27/24 16:38 Blood Culture - Preliminary Blood SPECIMEN COLLECTED A&P Assessment and plan (1) Severe sepsis: Endorgan damage: Acute on chronic hypoxic respiratory failure, severely elevated lactic acid Source: Left sided pneumonia Blood cultures obtained Status post IV fluid bolus in ED, hold off on full 30 mL/kg IV fluid bolus due to concern for underlying cardiac dysfunction Strict I's and O's Daily weights Start broad-spectrum antibiotics with cefepime and vancomycin Screen for MRSA Supportive care (2) Pneumonia, community acquired: Left-sided community-acquired pneumonia Bacterial antigens Procalcitonin and CRP requested Start broad-spectrum antibiotics as noted above (3) Acute on chronic hypoxic respiratory failure: Acute on chronic hypoxic respiratory failure, baseline O2 is 4 L at home Goals of care discussed with advance care planning discussed for 20 minutes in ED From ACP meeting, patient request DNR/DNI status; she is a poor candidate for invasive ventilation due to her comorbidities Continue supplemental oxygen support ABG shows significant respiratory effort with low pCO2, she will likely wear out if this continues Will plan on high flow nasal cannula and/or BiPAP as respiratory status worsens Will utilize low-dose morphine trial for air hunger (4) COPD (chronic obstructive pulmonary disease): Acute COPD exacerbation, advanced emphysema Start IV systemic steroids Pulmicort ordered Scheduled DuoNebs Qualifiers: COPD type: chronic bronchitis Chronic bronchitis type: simple Qualified Code(s): J41.0 - Simple chronic bronchitis (5) Elevated troponin: Not endorsing chest pain, suspect secondary to sepsis Continue trending troponin Continue heparin drip Will obtain limited echo to evaluate for regional wall motion abnormalities Continues telemetry monitoring (6) Myasthenia gravis: Myasthenia gravis Possible myasthenia gravis flare Neurology has evaluated in the ED, will appreciate recommendations (7) Metastatic squamous cell carcinoma: Fairly recently diagnosed metastatic stage Jeff squamous cell carcinoma head neck Recent ports been placed, can utilize for central access She [place] [facility] [place], she has not started treatment Oncology note reviewed, plan is for chemoradiation, [facility] Long-term prognosis seems poor (8) Pulmonary hypertension: Plan DVT prophylaxis: Heparin drip CODE STATUS: DNR and DNI-confirmed with patient. PDMP PDMP Reviewed: Not Reviewed Attestations Medical Necessity Statement*: Patient presents with shortness of breath, found to have severe sepsis secondary to left-sided community-acquired pneumonia, acute on chronic hypoxic respiratory failure, COPD exacerbation and multiple other elements with expected hospitalization across 2 midnights for initiation of IV antibiotics, IV steroids, breathing treatments, neurology care and supportive care. Coding Level of Care Code Acute Code for [facility] Diagnoses Severe sepsis A41.9; R65.20 Pneumonia, community acquired J18.9 Acute on chronic hypoxic respiratory failure J96.21 Simple chronic bronchitis J41.0 COPD type: chronic bronchitis Chronic bronchitis type: simple Elevated troponin R79.89 Myasthenia gravis G70.00 Metastatic squamous cell carcinoma Pulmonary hypertension I27.20
[2024-11-27 18:08] LABS: Add Urine Culture? No; Add Urine Microscopic? YES; Bacteria Urine TRACE /hpf; Mucus Urine TRACE /hpf; RBC Urine 0-4 /hpf (0-2); Squamous Epithelial Cell Urine 0-4 /hpf (0-5); WBC Urine 0-4 /hpf (0-5)
[2024-11-27 18:21] LABS: Influenza A NEGATIVE (Negative); Influenza B NEGATIVE (Negative); Respiratory Syncytial Virus Ce NEGATIVE (Negative); SARS-CoV-2 PCR NEGATIVE (Negative)
[2024-11-27] MEDS: piperacillin-tazobactam 3.375 GM in sodium chloride 0.9% (plus) 50 ML IV (18:23)
[2024-11-27] MEDS: sodium chloride 0.9% 500 ML IV (18:25)
[2024-11-27] MEDS: calcium chloride 10% Syr 10 mL 1 GM IVP (18:26)
[2024-11-27] MEDS: albuterol 2.5 mg/3 mL Neb 10 MG INHALATION (18:26)
[2024-11-27 18:32] LABS: Reflex Lactate Order REFLEX LACTIC ORDERD
[2024-11-27 18:52] LABS: Troponin 5 2HR 136.9 ng/L (0-10); Troponin 5 2HR Delta -95.1 ABS# (0-10)
[2024-11-27] MEDS: methylPREDNISolone sod succ 40 mg/mL INJ IVP ×2 (19:15→23:31)
[2024-11-27] MEDS: heparin drip 25,000 UNIT/500 ML PREMIX 12.7 UNIT IV (19:29)
[2024-11-27] MEDS: heparin 5,000 unit/mL INJ 1 mL IVP (19:30)
[2024-11-27 19:34] LABS: C Reactive Protein 27.9 mg/L (0.0-4.9)
[2024-11-27 20:00] LABS: Lactic Acid level (Lactate) 5.1 mmol/L (0.5-2.2)
[2024-11-27] MEDS: budesonide 0.5 mg/2 mL Neb INHALATION (20:55)
--- NOTE | 2024-11-27 21:44 | ECG_ITS ---
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 Measurements Intervals [place] Rate: 129 P: 66 ID: [id number] QRS: 64 QRSD: 75 T: 142 QT: 356 QTc: 522 Interpretive Statements SINUS TACHYCARDIA LOW QRS VOLTAGE IN EXTREMITY LEADS [QRS DEFLECTION < 0.5 mV IN LIMB LEADS] ANTEROSEPTAL MYOCARDIAL INFARCTION , PROBABLY OLD [40+ ms Q WAVE IN V1-V4] MODERATE T-WAVE ABNORMALITY, CONSIDER LATERAL ISCHEMIA [-0.1+ mV T-WAVE IN I/aVL/V5/V6] Compared to ECG 11/27/2024 17:56:34 T-wave abnormality now present Possible ischemia now present Myocardial infarct finding still present Electronically Signed On 11-28-2024 08:11:24 WELT STITCHER by Rickey Almendarez M.D. [id number] [id number]
[2024-11-27] MEDS: pyridostigmine 60 mg Tablet PO (21:57)
[2024-11-27 22:43] LABS: Troponin 5 6HR Delta -91.9 ng/L (0-12)
[2024-11-27 22:45] LABS: Troponin 5 6HR 140.1 ng/L (0-10)
--- NOTE | 2024-11-27 22:54 | PC.NURSE ---
Addendum entered by Leonie Aguilera RN 11/27/24 22:58: Counted 30 tabs of lorazepam and 14 tabs of oxycodone with Falguni SANCHEZ, Witnessed her placing medications in pyxis. Original Note: Medications in [facility]: See paper chart for 'Home Medication List' form. Medications locked in pixis include 30 tabs lorazepam and 14 tabs oxycodone. Medications double counted by LAURA Hadley. Witnessed placement in [facility] by LAURA Hadley.
[2024-11-27 23:01] LABS: MRSA PCR OZH (swab) NOT DETECTED (Not Detecte)
[2024-11-27] MEDS: cefepime 2,000 mg SDV 2000 MG IVP (23:23)
[2024-11-28] VITALS (36 sets, daily range): BP systolic 90–149; BP diastolic 57–116; PULSE 82–153; RESP 13–28; TEMP 36.1–36.6; O2SAT 78–100
[2024-11-28 01:25] LABS: Partial Thromboplastin Time 40.5 SECONDS (23.9-36.7)
[2024-11-28] MEDS: heparin 5,000 unit/mL INJ 1 mL IVP (01:37)
[2024-11-28] MEDS: morphine 4 mg/mL SDV 1 mL 2 MG IVP ×2 (02:13→06:25)
[2024-11-28] MEDS: LORazepam 1 mg Tablet PO (02:14)
[2024-11-28] MEDS: ondansetron 2 mg/ML SDV 2 mL 4 MG IVP (03:12)
[2024-11-28] MEDS: ipratropium-albuterol 3 mL Neb INHALATION ×6 (04:49→23:29)
[2024-11-28 05:48] LABS: Basophils % 0.3 %; Eosinophils % 0.1 %; Lymphocytes # 1.1 10^3/uL (0.8-4.8); Lymphocytes % 7.4 %; Mean Corpuscular HGB Conc 28.2 g/dL (30-55); Mean Corpuscular Hemoglobin 24.7 pg (27-33); Mean Corpuscular Volume 87.4 fl (85-98); Mean Platelet Volume 10.6 fL (7.4-10.4); Monocytes # 0.5 10^3/uL (0.2-0.9); Monocytes % 3.3 %; Neutrophils # 13.13 10^3/uL (1.8-7.7); Nucleated Red Blood Cells % 0.2 %; Platelet Count 281 10^3/cmm (157-399); Red Blood Count 4.46 10^6/uL (3.85-5.65); Red Cell Distribution Width 17.1 % (12.1-15.1); White Blood Count 15.07 10^3/uL (3.29-11.43)
[2024-11-28 06:24] LABS: Alanine Aminotransferase 294 U/L (0-33); Albumin Level 3.8 g/dL (3.5-5.2); Alkaline Phosphatase 206 U/L (35-105); Anion Gap 31.2 (5-19); Aspartate Amino Transferase 531 U/L (0-32); Blood Urea Nitrogen 27 mg/dL (8-23); Calcium 9.7 mg/dL (8.5-10.5); Carbon Dioxide 10 mmol/L (22-29); Chloride 105 mmol/L (98-107); Globulin 3.4 g/dL (1.3-4.6); Glucose 94 mg/dL (65-115); Magnesium 2.2 mg/dL (1.7-2.3); Osmolality Calculated 297 mOsm/kg (285-295); Potassium 5.2 mmol/L (3.5-5.1); Sodium 141 mmol/L (136-145); Total Bilirubin 2.1 mg/dL (0.15-1.2); Total Protein 7.2 g/dL (6.6-8.7)
[2024-11-28] MEDS: methylPREDNISolone sod succ 40 mg/mL INJ IVP ×4 (06:25→23:42)
[2024-11-28 06:26] LABS: Creatinine Clr Calc Pharmacy 34.6567
[2024-11-28 06:41] LABS: Procalcitonin 1.02 ng/mL (0-0.5)
[2024-11-28 08:02] LABS: Partial Thromboplastin Time 131.6 SECONDS (23.9-36.7)
[2024-11-28] MEDS: budesonide 0.5 mg/2 mL Neb INHALATION ×2 (09:14→20:18)
[2024-11-28] MEDS: pantoprazole DR 40 mg Tablet PO (09:37)
[2024-11-28] MEDS: calcium carbonate 600 mg Tablet PO (09:37)
[2024-11-28] MEDS: folic acid 1 mg Tablet PO (09:37)
[2024-11-28] MEDS: pyridostigmine 60 mg Tablet PO ×4 (09:37→20:39)
--- NOTE | 2024-11-28 11:30 | P.PN_ITS ---
Subjective 2 Subjective: Patient reports last night when okay. She complains of persistent shortness of breath and mostly nonproductive cough. Worsening renal function on labs this morning. We discussed plan of care for today and she is in agreement. Medications: Reviewed: Yes Vitals/I&O/Wt Last Vital Signs Temp 97.5 F L 11/28/24 06:31 Pulse 102 H 11/28/24 11:23 Resp 18 11/28/24 11:23 BP 118/81 11/28/24 10:00 Pulse Ox 98 11/28/24 11:23 O2 Del Method Nasal Cannula 11/28/24 11:23 O2 Flow Rate 5 11/28/24 11:23 11/27/24 11/28/24 11/28/24 22:59 06:59 14:59 Intake Total 670 / 670 326.835 / 996.835 450.75 / 450.75 Output Total 150 / 150 150 / 150 Balance 670 / 670 176.835 / 846.835 300.75 / 300.75 Weight last 48 hrs Weight 49.487 kg Weight 49.396 kg Weight 45.359 kg Physical Exam 2 Narrative: General: Patient is awake. Frail-appearing. Head: Temporal wasting. Neck: No JVD. Cardiovascular: RRR. No gallops. No murmurs. Lungs: Poor air movement. There is left-sided rhonchi present. Difficult to appreciate wheezing there is limited air movement throughout lung ness. Tachypneic. On OxiMax. Skin: No jaundice. No rashes. Abdomen: Hypoactive bowel sounds, abdomen soft and nontender. Extremities: No cyanosis or clubbing. Musculoskeletal: No swollen or erythematous joints. Neurological: Moves all 4 extremities. No myoclonus. Urinary Catheter Management: Maldonado: Cath Placed During This Visit: yes Reason for Continuing Indwelling Catheter: Accurate Measurement of Urinary Output in Critically Ill Patients Urinary Catheter Date of Insertion: 11/28/24 Urinary Catheter Time of Insertion: : Data 11/28/24 05:31 11/28/24 05:31 Micro: Microbiology 11/28/24 01:21 Bacterial Antigens - Final Urine,Voided 11/27/24 16:33 Blood Culture - Preliminary Blood SPECIMEN COLLECTED 11/27/24 16:38 Blood Culture - Preliminary Blood SPECIMEN COLLECTED A&P Assessment and plan (1) Severe sepsis: Endorgan damage: Acute on chronic hypoxic respiratory failure, severely elevated lactic acid Source: Left sided pneumonia Follow cultures Strict I's and O's Daily weights Continue broad-spectrum antibiotics with cefepime (11/27-p) Nasal MRSA screen is negative, good sensitivity with pneumonia, discontinue vancomycin Supportive care (2) Pneumonia, community acquired: Left-sided community-acquired pneumonia Bacterial antigens pending Antibiotics as above (3) Acute on chronic hypoxic respiratory failure: Acute on chronic hypoxic respiratory failure, baseline O2 is 4 L at home Continue supplemental oxygen support Will utilize low-dose morphine trial for air hunger Continue supportive care (4) COPD (chronic obstructive pulmonary disease): Acute COPD exacerbation, advanced emphysema Continue IV systemic steroids Pulmicort Scheduled DuoNebs Qualifiers: COPD type: chronic bronchitis Chronic bronchitis type: simple Q ualified Code(s): J41.0 - Simple chronic bronchitis (5) Elevated troponin: Continue heparin drip we will plan to treat medically for 48 hours Follow-up limited echo Continues telemetry monitoring (6) Myasthenia gravis: Myasthenia gravis Neurology evaluated (7) Metastatic squamous cell carcinoma: 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 PDMP PDMP Reviewed: Not Reviewed Attestations 2 Medical Necessity Statement*: Patient requires ongoing hospitalization for IV antibiotics, following cultures, IV steroids, and supportive care. Coding Level of Care Code Acute Code for [facility] Fwd Diagnoses Severe sepsis A41.9; R65.20 Pneumonia, community acquired J18.9 Acute on chronic hypoxic respiratory failure J96.21 Simple chronic bronchitis J41.0 COPD type: chronic bronchitis Chronic bronchitis type: simple Elevated troponin R79.89 Myasthenia gravis G70.00 Metastatic squamous cell carcinoma Pulmonary hypertension I27.20
[2024-11-28] MEDS: water for injection-sterile 20 ML (11:51)
[2024-11-28] MEDS: cefepime 2,000 mg SDV 2000 MG IVP ×2 (11:52→23:42)
[2024-11-28 14:25] LABS: Albumin Level 3.5 g/dL (3.5-5.2); Anion Gap 22.6 (5-19); Blood Urea Nitrogen 36 mg/dL (8-23); Calcium 8.8 mg/dL (8.5-10.5); Carbon Dioxide 15 mmol/L (22-29); Chloride 105 mmol/L (98-107); Creatinine Clr Calc Pharmacy 27.7446; Glucose 285 mg/dL (65-115); Potassium 4.6 mmol/L (3.5-5.1); Sodium 138 mmol/L (136-145)
[2024-11-28 14:29] LABS: Phosphorus 7.9 mg/dL (2.5-4.5)
[2024-11-28] MEDS: sodium chloride 0.9% 500 ML IV (15:28)
--- NOTE | 2024-11-28 15:35 | PC.NURSE ---
urine output remain down phos level noted order for ns bolus started at this time .
[2024-11-28 17:04] LABS: Partial Thromboplastin Time 80.8 SECONDS (23.9-36.7)
--- NOTE | 2024-11-28 18:12 | PC.NURSE ---
difficult picking up pulse ox but sats running above 92 percent
--- NOTE | 2024-11-28 18:34 | USCV_ITS ---
Carlos Darling Age: 74 Gender: F : 1950 Exam Date: 11/28/2024 10:37 Ordering Phys: Sky Burrows MD Technologist: Gavin Lind Exam Location: [facility] Indication: eval for wall abnormalities BP: 98 / 65 HR: Rhythm: Sinus Technical Quality: Adequate MEASUREMENTS (Male / Female) Normal Values 2D ECHO LV Diastolic Diameter PLAX 3.3 cm 4.2 - 5.9 / 3.9 - 5.3 cm IVS Diastolic Thickness 1.2 cm 0.6 - 1.0 / 0.6 - 0.9 cm IVS Systolic Thickness 1.4 cm LVPW Diastolic Thickness 1.7 cm 0.6 - 1.0 / 0.6 - 0.9 cm LVPW Systolic Thickness 2.4 cm LVOT Diameter 2.0 cm LV Ejection Fraction 2D Teich 61.4 % LV Ejection Fraction MOD 4C 54.0 % LV Ejection Fraction MOD 2C 63.6 % LV Ejection Fraction 2C AL 64.8 % LA Diameter 3.4 cm RA Systolic Volume 4C AL 59.5 ml RA Systolic Volume 4C MOD 59.9 ml LA Sys Volume AL 33.2 cm cubed LA Sys Volume Index AL 22.3 cm cubed/m squared Aorta at Sinotubular Diameter 2.3 cm IVC Diameter 1.6 cm FINDINGS Left Ventricle Mildly reduced LV systolic function. Mild hypokinesis of mid distal anterior and anteroseptal wall segments. Estimated LVEF is mildly reduced at 50%. Right Ventricle Normal right ventricular size and systolic function. Right Atrium Mildly increased right atrial size. Left Atrium Normal left atrial size. Mitral Valve Aortic Valve Tricuspid Valve Pulmonic Valve Pericardium No pericardial effusion. Aorta Normal size aortic root and proximal ascending aorta. IVC CONCLUSIONS Limited echo to assess LVEF and regional wall motion abnormalities. Mildly reduced LV systolic function. LVEF 50%. Mild hypokinesis of mid distal anterior and anteroseptal wall segments. RV normal size with normal RV systolic function. Jose Munoz MD (Electronically Signed) Final Date: 28 November 2024 12:44 S
[2024-11-28 22:34] LABS: Partial Thromboplastin Time 66.6 SECONDS (23.9-36.7)
[2024-11-29] VITALS (38 sets, daily range): BP systolic 92–136; BP diastolic 65–85; PULSE 74–111; RESP 7–28; TEMP 36.1–37.2; O2SAT 85–100
[2024-11-29] MEDS: ipratropium-albuterol 3 mL Neb INHALATION ×6 (04:02→23:22)
[2024-11-29 04:44] LABS: Basophils % 0.1 %; Hematocrit 36.2 % (36-47); Lymphocytes # 0.7 10^3/uL (0.8-4.8); Lymphocytes % 3.4 %; Mean Corpuscular HGB Conc 29.3 g/dL (30-55); Mean Corpuscular Hemoglobin 24.7 pg (27-33); Mean Corpuscular Volume 84.2 fl (85-98); Mean Platelet Volume 10.9 fL (7.4-10.4); Monocytes % 4.5 %; Neutrophils # 19.74 10^3/uL (1.8-7.7); Neutrophils % 90.9 %; Nucleated Red Blood Cells # 0.1 /100WBC; Nucleated Red Blood Cells % 0.3 %; Platelet Count 247 10^3/cmm (157-399); Red Cell Distribution Width 17.2 % (12.1-15.1); White Blood Count 21.71 10^3/uL (3.29-11.43)
[2024-11-29 04:48] LABS: Partial Thromboplastin Time 64.3 SECONDS (23.9-36.7)
[2024-11-29 04:55] LABS: Alanine Aminotransferase 559 U/L (0-33); Albumin Level 3.6 g/dL (3.5-5.2); Alkaline Phosphatase 167 U/L (35-105); Anion Gap 18.6 (5-19); Blood Urea Nitrogen 51 mg/dL (8-23); Calcium 8.1 mg/dL (8.5-10.5); Carbon Dioxide 17 mmol/L (22-29); Chloride 105 mmol/L (98-107); Creatinine Clr Calc Pharmacy 17.3404; Globulin 3.6 g/dL (1.3-4.6); Glucose 294 mg/dL (65-115); Magnesium 1.9 mg/dL (1.7-2.3); Osmolality Calculated 307 mOsm/kg (285-295); Phosphorus 6.2 mg/dL (2.5-4.5); Potassium 4.6 mmol/L (3.5-5.1); Sodium 136 mmol/L (136-145); Total Bilirubin 0.9 mg/dL (0.15-1.2); Total Protein 7.2 g/dL (6.6-8.7)
[2024-11-29 05:10] LABS: Aspartate Amino Transferase 792 U/L (0-32)
[2024-11-29] MEDS: methylPREDNISolone sod succ 40 mg/mL INJ IVP ×3 (06:16→17:41)
[2024-11-29] MEDS: budesonide 0.5 mg/2 mL Neb INHALATION ×2 (08:38→20:28)
[2024-11-29] MEDS: calcium carbonate 600 mg Tablet PO (08:45)
[2024-11-29] MEDS: folic acid 1 mg Tablet PO (08:45)
[2024-11-29] MEDS: pyridostigmine 60 mg Tablet PO ×3 (08:45→20:48)
[2024-11-29] MEDS: pantoprazole DR 40 mg Tablet PO (08:45)
--- NOTE | 2024-11-29 09:44 | PM.PN ---
Subjective Subjective: Patient reports she had an okay night. Endorses shortness of breath. Per report, patient has episodes of significant hypoxia with even minimal exertion. She denies fevers or chills. Discussed plan of care. Renal function worsening. She required dialysis last summer. Discussed nephrology consultation. Medications: Reviewed: Yes Vitals/I&O/Wt Last Vital Signs Temp 97.9 F 11/28/24 19:15 Pulse 88 11/29/24 08:30 Resp 16 11/29/24 08:30 BP 119/72 11/29/24 08:00 Pulse Ox 90 11/29/24 08:30 O2 Del Method Nasal Cannula 11/29/24 08:30 O2 Flow Rate 4 11/29/24 08:30 11/28/24 11/29/24 11/29/24 22:59 06:59 14:59 Intake Total 1391.8 / 2412.55 66.733 / 2479.283 250 / 250 Output Total 50 / 200 50 / 250 Balance 1341.8 / 2212.55 16.733 / 2229.283 250 / 250 Weight last 48 hrs Weight 51.982 kg Weight 49.487 kg Weight 49.396 kg Weight 45.359 kg Physical Exam Narrative: General: Patient is sleeping. Awakens to voice. Appears fatigued. Very pleasant. Head: Temporal wasting. Neck: No JVD. Cardiovascular: RRR. No gallops. No murmurs. Lungs: Persistently poor air movement. Left-sided rhonchi. Tachypneic. On supplemental support. Skin: No jaundice. No rashes. Abdomen: Hypoactive bowel sounds, abdomen soft and nontender. Extremities: No cyanosis or clubbing. Musculoskeletal: No swollen or erythematous joints. Neurological: Moves all 4 extremities. No myoclonus. Urinary Catheter Management: Maldonado: Cath Placed During This Visit: yes Reason for Continuing Indwelling Catheter: Accurate Measurement of Urinary Output in Critically Ill Patients Urinary Catheter Date of Insertion: 11/28/24 Urinary Catheter Time of Insertion: : Data 11/29/24 04:05 11/29/24 04:05 Micro: Microbiology 11/27/24 16:38 Blood Culture - Preliminary Blood NEGATIVE TO DATE 11/27/24 16:33 Blood Culture - Preliminary Blood NEGATIVE TO DATE 11/28/24 01:21 Bacterial Antigens - Final Urine,Voided A&P Assessment and plan (1) Severe sepsis: Endorgan damage: Acute on chronic hypoxic respiratory failure, severely elevated lactic acid Source: Left sided pneumonia Bacterial antigens negative BCx NGTD Strict I's and O's Daily weights Continue broad-spectrum antibiotics with cefepime (11/27-p) (2) Acute kidney injury: Nonoliguric acute kidney injury suspected prerenal secondary to sepsis Renal function continues to worsen Strict I's and O's, currently positive +3.3 L Check urine electrolytes Check renal ultrasound Nephrology consultation (3) Pneumonia, community acquired: Left-sided community-acquired pneumonia Bacterial antigens are negative Encourage pulmonary toilet Antibiotics as above (4) Acute on chronic hypoxic respiratory failure: Acute on chronic hypoxic respiratory failure, baseline O2 is 4 L at home Continue supplemental oxygen support Will utilize low-dose morphine trial for air hunger Continue supportive care (5) COPD (chronic obstructive pulmonary disease): Acute COPD exacerbation, advanced emphysema Continue IV systemic steroids Pulmicort Scheduled DuoNebs Qualifiers: COPD type: chronic bronchitis Chronic bronchitis type: simple Qualified Code(s): J41.0 - Simple chronic bronchitis (6) Elevated troponin: Transthoracic echocardiogram reviewed, there is hypokinesis of the mid distal anterior/anteroseptal wall segments, LVEF 50%, RV function normal Continues telemetry monitoring Continue heparin drip we will plan to treat medically for 48 hours, will end today (7) Myasthenia gravis: Myasthenia gravis Neurology evaluated on admission (8) Metastatic squamous cell carcinoma: 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 PDMP PDMP Reviewed: Not Reviewed Attestations Medical Necessity Statement*: Patient requires ongoing hospitalization for IV antibiotics, IV steroids, nephrology care, and supportive care. Coding Level of Care Code Acute Code for [facility] Fwd Diagnoses Severe sepsis A41.9; R65.20 Acute kidney injury N17.9 Pneumonia, community acquired J18.9 Acute on chronic hypoxic respiratory failure J96.21 Simple chronic bronchitis J41.0 COPD type: chronic bronchitis Chronic bronchitis type: simple Elevated troponin R79.89 Myasthenia gravis G70.00 Metastatic squamous cell carcinoma Pulmonary hypertension I27.20
--- NOTE | 2024-11-29 09:48 | USR_ITS ---
PROCEDURE INFORMATION: Exam: US Abdomen Complete Exam date and time: 11/29/2024 4:30 PM Age: 74 years old Clinical indication: Abnormal findings; Abnormal lab test; Elevated liver enzymes; Additional info: [place], elevated liver enzymes, nurse to keep npo. Will scan her this afternoon. CR TECHNIQUE: Imaging protocol: Real-time ultrasound of the abdomen with image documentation. Complete exam. COMPARISON: US abdomen limited [id number] 07/07/2024 6:28 AM FINDINGS: Liver: The liver is slightly enlarged measuring up to 16.3 cm in length. Gallbladder: There is gallbladder wall thickening. Pericholecystic fluid present. Line no stone or sludge within the gallbladder. Biliary ducts: Normal. No stones. No dilation. Pancreas: Visualized pancreas is unremarkable. Right kidney: The right kidney measures 9.1 cm in length with no hydronephrosis or renal calculus. Left kidney: The left kidney measures 9.4 cm in length with no hydronephrosis or renal calculus. Spleen: Normal. No splenomegaly. Aorta: The aorta and IVC are unremarkable. Inferior vena cava: See Aorta finding. Portal venous: The portal vein is mildly enlarged measuring up to 14 mm in diameter. US/US abdomen complete* [id number] IMPRESSION: 1. No stone or sludge in the gallbladder. 2. There is gallbladder wall thickening with pericholecystic fluid. If there is continued clinical concern for cholecystitis, a HIDA scan may be of benefit.
[2024-11-29 09:54] LABS: Bilirubin Urine Negative (Negative); Blood Urine 3+ (Negative); Glucose Urine UA Negative (Normal); Ketones Urine Trace (Negative); Leukocyte Esterase Urine Trace (Negative); Nitrate Urine Negative (Negative); Protein Urine 2+ (Negative); Urine Appearance Cloudy (CLEAR); Urine Color Yellow (Yellow); Urobilinogen Urine 0.2 mg/dL (Negative); pH Urine 5.5 (5-7)
[2024-11-29 09:55] LABS: Specific Gravity, Urine 1.039 (1.005-1.030)
[2024-11-29 10:03] LABS: Bacteria Urine 1+ /hpf; Coarse Granular Casts Urine 0-4 /lpf; RBC Urine 25-40 /hpf (0-2); Squamous Epithelial Cell Urine 0-4 /hpf (0-5)
[2024-11-29 10:04] LABS: Add Urine Culture? Yes
[2024-11-29 10:10] LABS: Creatinine Urine, Random 103 mg/dL (28-217); Potassium, Radom Urine 49 mmol/L
[2024-11-29 10:20] LABS: Hepatitis A Antibody IgM Non-Reactive (Nonreactive); Hepatitis B Core IgM Non-Reactive (Nonreactive); Hepatitis B Surface Antigen Non-Reactive (Nonreactive); Hepatitis C Virus Antibody Non-Reactive (Nonreactive)
[2024-11-29 10:25] LABS: Urine Random Chloride 10 mmol/L; Urine Random Sodium 10 mmol/L
[2024-11-29] MEDS: cefepime 2,000 mg SDV 2000 MG IVP (12:39)
--- NOTE | 2024-11-29 13:45 | PM.CONSULT ---
Providers/Reason For Consult Consulting Physician/Specialty*: nephrology Reason for Consult*: bk Requesting Physician: Dr Burrows Attending Physician: Sky Burrows MD Primary Care Provider: Solitario Gaffney DO History of Present Illness History of Present Illness Darling Gonzalez is a 74 year old female, with a history of metastatic stage IV head/neck squamous cell carcinoma, chronic hypoxic respiratory failures on 4 L o2, COPD, pulmonary embolism, who presenteds to the er on 11/27/24 complaining of a 2-3 day history of worsening shortness of breath with associated generalized weakness. ON presentation, her cxr revealed left pneumonia. She aslo had a CT PE protocol taht eas negative for an acute PE. Awfopf2s work-up revealed wbc 14.8, hgb 11.6, sodium 140, potassium 5.3, creatinine 0.9, lactate 6.4. Her creatinine increased to 2.4 today prompting a nephrology consult. Review of Systems General: Reports: 10 or more systems reviewed and unremarkable except in HPI and below Const: Reports: other (generalized weakness ) Resp: Reports: dyspnea and non-productive cough Medications/Allergies Home Medications ?Medication ?Instructions ?Recorded ?Confirmed ?Last Taken ?Type krill oil 500 mg capsule 500 mg PO DAILY #90 caps 11/03/20 11/27/24 11/27/24 Rx pantoprazole 40 mg tablet,delayed 40 mg PO DAILY 30 days #60 tabs 05/27/24 11/27/24 11/27/24 Rx release (Protonix) albuterol sulfate 2.5 mg/3 mL 2.5 mg (3 mL) inhalation QID PRN 07/03/24 11/27/24 07/05/24 Rx (0.083 %) solution for nebulization shortness of breath or wheezing #180 mL nebulizer machine with tubing and #1 ea 07/03/24 11/27/24 Unknown Rx delivery device folic acid 1 mg tablet 1 mg PO DAILY #30 tabs 08/25/24 11/27/24 11/22/24 Rx furosemide 20 mg tablet (Lasix) 20 mg PO .prn #7 tabs 08/25/24 11/27/24 Unknown Rx albuterol sulfate 90 mcg/actuation 1 inh inhalation Q6H PRN shortness 09/11/24 11/27/24 Unknown Rx aerosol inhaler of breath or wheezing #8.5 grams apixaban 5 mg tablet (Eliquis) 5 mg PO BID #180 tabs 09/11/24 11/27/24 11/27/24 Rx potassium chloride 20 mEq 30 meq (1.5 x 20 mEq) PO DAILY 30 09/14/24 11/27/24 11/27/24 Rx tablet,extended days #45 tabs release(part/cryst) (Klor-Con M) lorazepam 1 mg tablet 0.5 - 1 mg (0.5 - 1 x 1 mg) PO Q6H 11/11/24 11/27/24 11/22/24 Rx PRN severe nausea #30 tabs prochlorperazine maleate 10 mg 10 mg PO Q4H PRN mild nausea #30 11/11/24 11/27/24 Unknown Rx tablet (Compazine) tabs calcium carbonate 600 mg PO DAILY #90 tabs 11/12/24 11/27/24 11/27/24 Rx fluticasone fur. 100 mcg-umeclid 1 inh inhalation DAILY #28 ea 11/12/24 11/27/24 11/27/24 Rx 62.5 mcg-vilant 25 mcg inhalat.powder (Trelegy Ellipta) manual wheel Chair, leg rest, high #1 ea 11/12/24 11/27/24 Unknown Rx back oxygen supplementation with #1 ea 11/12/24 11/27/24 Unknown Rx portable concentrator pyridostigmine bromide 60 mg 60 mg PO QID 11/20/24 11/27/24 11/27/24 History tablet (Mestinon) oxycodone 5 mg tablet 5 mg PO Q8H PRN pain 5 days #14 11/23/24 11/27/24 Unknown Rx tabs Allergies Allergy/AdvReac Type Severity Reaction Status Date / Time Influenza Virus Vaccines Allergy Intermediate Numbness Verified 11/20/24 12:06 niacin AdvReac Intermediate hives,itching, Verified 11/20/24 12:06 ankle swelling Current Medications Generic Name Dose Route Start Last Admin Trade Name Freq PRN Reason Stop Dose Admin Albuterol/Ipratropium 3 ml 11/27/24 20:00 11/29/24 11:26 Ipratropium-Albuterol 3 Ml Neb INHALATION 3 ml Q4H.RESPIRATORY VANGIE Administration Budesonide 0.5 mg 11/27/24 20:00 11/29/24 08:38 Budesonide 0.5 Mg/2 Ml Neb INHALATION 0.5 mg BID.RESPIRATORY VANGIE Administration Calcium Carbonate 600 mg 11/28/24 09:00 11/29/24 08:45 Calcium Carbonate 600 Mg Tablet PO 600 mg DAILY VANGIE Administration Cefepime HCl 2,000 mg 11/27/24 23:16 11/29/24 12:39 Cefepime 2,000 Mg Sdv IVP 2,000 mg Q12H VANGIE Administration Protocol Folic Acid 1 mg 11/28/24 09:00 11/29/24 08:45 Folic Acid 1 Mg Tablet PO 1 mg DAILY VANGIE Administration Heparin Sodium (Porcine) 0 unit 11/27/24 17:43 11/28/24 01:37 Heparin 5,000 Unit/Ml Inj 1 Ml IVP 1,800 unit PRN PRN Administration Heparin Weight Based Protocol -Subsequent Bolus Protocol Heparin Sodium/Sodium Chloride 25,000 unit in 500 mls @ 0 mls/hr 11/27/24 17:45 11/29/24 12:31 Heparin Drip IV 11/29/24 17:44 Not Given CONT VANGIE Protocol Per Protocol Lorazepam 1 mg 11/27/24 21:00 11/28/24 02:14 Lorazepam 1 Mg Tablet PO 1 mg Q6H PRN Administration severe nausea Methylprednisolone Sodium Succinate 40 mg 11/27/24 18:30 11/29/24 12:39 Methylprednisolone Sod Succ 40 Mg/Ml Inj IVP 40 mg Q6H VANGIE Administration Morphine Sulfate 2 mg 11/27/24 18:22 11/28/24 06:25 Morphine 4 Mg/Ml Sdv 1 Ml IVP 2 mg Q4H PRN Administration [employer] Ondansetron HCl 4 mg 11/27/24 18:22 11/28/24 03:12 Ondansetron 2 Mg/Ml Sdv 2 Ml IVP 4 mg Q8H PRN Administration vomiting, or N/V if npo Pantoprazole Sodium 40 mg 11/28/24 09:00 11/29/24 08:[address] 40 Mg Tablet PO 40 mg DAILY VANGIE Administration Pyridostigmine Leota 60 mg 11/27/24 21:00 11/29/24 08:45 Pyridostigmine 60 Mg Tablet PO 60 mg QID VANGIE Administration PFSH Acute PFSH: Medical History Myasthenia gravis COPD (chronic obstructive pulmonary disease) Persistent cough Pulmonary hypertension Acute kidney injury Sepsis Enrolled in chronic care management Clostridium difficile colitis Hypotension Hypokalemia Pneumonia Vitamin D deficiency B12 deficiency Acute laryngitis Myasthenia gravis Ischemic colitis History of colon polyps Post-menopause Hypertension Hyperlipidemia COPD (chronic obstructive pulmonary disease) Crohn's disease Surgical History Hx of colonoscopy (~2018) showed polyps which were not removed H/O oophorectomy History of hysterectomy Family History Unknown Stroke Other CAD (coronary artery disease) Social History Smoking and tobacco/nicotine status: former use of tobacco/nicotine (quit 2007) Alcohol intake: current Alcohol intake frequency: holidays/special occasions only Substance/Drug Use: never Lives independently: Yes Housing: House Current occupational status: retired 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 occupational 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396 kg Weight 45.359 kg Physical Exam Const: COMMON NORMALS: no acute distress, average body habitus, no limitations, alert and well nourished ORIENTATION/CONSCIOUSNESS: Yes oriented to person and Yes oriented to time HENMT: COMMON NORMALS: normocephalic HEAD & SCALP: normocephalic Eye: COMMON NORMALS: EOMs intact bilaterally and no scleral icterus Neck/C-Spine: COMMON NORMALS: no JVD Resp: COMMON NORMALS: normal respiratory effort OTHER: diminished BS right lung, Left lung with rhonchi Cardio: COMMON NORMALS: no JVD, regular rate, regular rhythm, S1 normal heart sound present and S2 normal heart sound present RATE: regular rate RHYTHM: regular rhythm HEART SOUNDS: S1 normal heart sound present and S2 normal heart sound present GI: COMMON NORMALS: Soft to palpation INSPECTION: Yes normal to inspection PALPATION: Yes Soft to palpation Extremity: COMMON NORMALS: normal to inspection and no pedal edema Neuro: SENSORIUM/ORIENTATION: Yes alert, Yes oriented to person, Yes oriented to time and Yes Orientation impaired Urinary Catheter Management: Maldonado: Cath Placed During This Visit: yes Reason for Continuing Indwelling Catheter: Accurate Measurement of Urinary Output in Critically Ill Patients Urinary Catheter Date of Insertion: 11/28/24 Urinary Catheter Time of Insertion: : Data 11/29/24 04:05 11/29/24 04:05 Micro: Microbiology 11/27/24 16:38 Blood Culture - Preliminary Blood NEGATIVE TO DATE 11/27/24 16:33 Blood Culture - Preliminary Blood NEGATIVE TO DATE 11/28/24 01:21 Bacterial Antigens - Final Urine,Voided CT Chest: Radiologist's impression: no acute pe CXR: Radiologist's impression: left sided pneumonia A&P Assessment and plan (1) Acute kidney injury: BK- Her bk is likely due to atn secondary to infection/sepsis and contrast induced nephropathy. She is non-oliguric with stable lytes. - await abdominal us - avoid further nephrotoxic agents acute on chronic hypoxic respiratory failure- improved. Likely due to pneumonia sepsis- likely due to pneumonia. on cefepime per the porimary service acidosis- due to lactate, improved with ivf myastenia gravis metastatic squamous cell carcinoma of head/neck PDMP PDMP Reviewed: Not Reviewed Consult Attestations Medical Necessity Statement: bk Time Spent in Patient Care: 50 minutes Coding Level of Care Code Acute Code for [facility] Diagnoses Acute kidney injury N17.9
[2024-11-29] MEDS: water for injection-sterile 10 ML 1000 ML (14:55)
--- NOTE | 2024-11-29 20:37 | PC.NURSE ---
Cyanosis Cyanosis noted on fingers and toes.
[2024-11-29] MEDS: heparin 5,000 unit/mL INJ 1 mL 5000 UNIT SUBCUT (20:48)
[2024-11-30] VITALS (68 sets, daily range): BP systolic 109–136; BP diastolic 57–91; PULSE 68–97; RESP 8–27; TEMP 36.1–36.4; O2SAT 81–100
--- NOTE | 2024-11-30 | PC.NURSE ---
Oxymask Patient's oxygen saturation decreasing into high 70s, mid 80s while patient sleeping. Patient noted to be breathing through her mouth. Oxymask placed on patient.
[2024-11-30 00:03] LABS: Glucose Point of Care 313 mg/dL (70-110)
[2024-11-30] MEDS: methylPREDNISolone sod succ 40 mg/mL INJ IVP ×4 (00:10→21:40)
[2024-11-30] MEDS: cefepime 1,000 mg SDV 1000 MG IVP (00:12)
--- NOTE | 2024-11-30 00:23 | PC.NURSE ---
Insulin Patient's blood glucose 313. Patient denies history of diabetes. Dr. Farias notified; order received for medium sliding scale insulin subq ACHS with first dose now.
[2024-11-30] MEDS: insulin lispro 100 unit/1 mL SUBCUT ×3 (00:33→17:35)
[2024-11-30] MEDS: guaiFENesin 600 mg Tablet 1200 MG PO (01:36)
--- NOTE | 2024-11-30 02:41 | PC.NURSE ---
Metoprolol Patient had a 12 beat run of wide complex arrythmia. Dr. Farias notified; order received for 25 mg metoprolol PO BID.
[2024-11-30] MEDS: ipratropium-albuterol 3 mL Neb INHALATION ×5 (03:05→20:42)
--- NOTE | 2024-11-30 04:30 | PC.NURSE ---
Addendum entered by Meseret Leonardo RN 11/30/24 05:00: RT at bedside, handheld pulse ox showing oxygen saturation of 98% while forehead pulse ox displayed 87%. Oxymask titrated down to 6L. Original Note: Oxygen Saturation Patient's oxygen saturation showing mid 80s with a good waveform while patient sleeping. Patient not endorsing any worse feeling of shortness of breath. Moving pulse ox on forehead not changing oxygen saturation significantly. Oxymask titrated up to 10 L, RT notified.
[2024-11-30 05:32] LABS: Basophils % 0.2 %; Eosinophils # 0.1 10^3/uL (0.0-0.8); Eosinophils % 0.2 %; Hematocrit 35.9 % (36-47); Lymphocytes # 0.4 10^3/uL (0.8-4.8); Lymphocytes % 1.7 %; Mean Corpuscular Hemoglobin 24.4 pg (27-33); Mean Corpuscular Volume 84.3 fl (85-98); Mean Platelet Volume 11.2 fL (7.4-10.4); Monocytes # 0.8 10^3/uL (0.2-0.9); Monocytes % 3.4 %; Neutrophils # 20.43 10^3/uL (1.8-7.7); Neutrophils % 93.3 %; Nucleated Red Blood Cells # 0.1 /100WBC; Nucleated Red Blood Cells % 0.5 %; Platelet Count 185 10^3/cmm (157-399); Red Blood Count 4.26 10^6/uL (3.85-5.65); Red Cell Distribution Width 17.2 % (12.1-15.1); White Blood Count 21.91 10^3/uL (3.29-11.43)
[2024-11-30 05:58] LABS: Alanine Aminotransferase 390 U/L (0-33); Albumin Level 3.6 g/dL (3.5-5.2); Alkaline Phosphatase 169 U/L (35-105); Anion Gap 21.1 (5-19); Aspartate Amino Transferase 224 U/L (0-32); Blood Urea Nitrogen 67 mg/dL (8-23); Calcium 8.1 mg/dL (8.5-10.5); Carbon Dioxide 14 mmol/L (22-29); Chloride 105 mmol/L (98-107); Creatinine Clr Calc Pharmacy 12.8504; Globulin 3.7 g/dL (1.3-4.6); Glucose 159 mg/dL (65-115); Osmolality Calculated 303 mOsm/kg (285-295); Potassium 5.1 mmol/L (3.5-5.1); Sodium 135 mmol/L (136-145); Total Bilirubin 0.7 mg/dL (0.15-1.2); Total Protein 7.3 g/dL (6.6-8.7)
[2024-11-30 06:07] LABS: Procalcitonin 1.31 ng/mL (0-0.5)
[2024-11-30] MEDS: budesonide 0.5 mg/2 mL Neb INHALATION ×2 (08:07→20:42)
[2024-11-30 08:27] LABS: Glucose Point of Care 157 mg/dL (70-110)
[2024-11-30] MEDS: pantoprazole DR 40 mg Tablet PO (08:39)
[2024-11-30] MEDS: heparin 5,000 unit/mL INJ 1 mL 5000 UNIT SUBCUT ×2 (08:39→20:52)
[2024-11-30] MEDS: calcium carbonate 600 mg Tablet PO (08:39)
[2024-11-30] MEDS: folic acid 1 mg Tablet PO (08:39)
[2024-11-30] MEDS: aspirin 81 mg EC Tablet PO (08:39)
[2024-11-30] MEDS: pyridostigmine 60 mg Tablet PO ×4 (08:39→20:52)
[2024-11-30] MEDS: metoprolol tartrate 25 mg Tablet PO ×2 (08:40→21:40)
[2024-11-30] MEDS: meropenem 1,000 mg SDV 1000 MG IVP ×2 (09:35→17:35)
[2024-11-30 09:52] LABS: Estmated Average Glucose 134; Hemoglobin A1C 6.3 % (4.0-6.0)
[2024-11-30 10:31] LABS: Iron 11 ug/dL (37-145); Percent Saturation 3.3 % (20-50); Thyroid Stimulating Hormone 3.97 uIU/mL (0.27-4.20); Total Iron Binding Capacity 324 mcg/dl; Unsaturated Iron Binding 313 ug/dL (112-347)
--- NOTE | 2024-11-30 10:39 | XR_ITS ---
WS: [id number] XR chest 1V portable [id number] REASON FOR EXAM: hypoxia FINDINGS: Left chemotherapy infusion port, accessed. Left internal jugular infusion catheter with the tip in the mid SVC. Position unchanged compared to 11/27/2024. There continues to be coarse reticular interstitial lung opacities in the right lower and left lower lungs with a more focal airspace consolidation in the left lower lung with obscuration of the left hemidiaphragm. Left pleural effusion. Findings in the left lower lung may have progressed compared to the previous examination of 11/27/2024. XR/XR chest 1V portable [id number] IMPRESSION: Abnormal chest as above with possible progression of findings in the left lower lung as above.
[2024-11-30 10:51] LABS: Vitamin B12 > 2000 pg/mL (232-1245)
[2024-11-30] MEDS: FUROsemide 10 mg/mL SDV 4mL 40 MG IVP (11:29)
[2024-11-30 11:37] LABS: Glucose Point of Care 120 mg/dL (70-110)
--- NOTE | 2024-11-30 13:18 | P.PN_ITS ---
Subjective 2 Subjective: Patient has no complaint on 5L Medications: Reviewed: Yes Vitals/I&O/Wt Last Vital Signs Temp 97.5 F L 11/30/24 08:00 Pulse 80 11/30/24 12:30 Resp 20 H 11/30/24 12:30 BP 122/77 11/30/24 12:30 Pulse Ox 97 11/30/24 12:30 O2 Del Method Nasal Cannula 11/30/24 12:30 O2 Flow Rate 5 11/30/24 12:30 11/29/24 11/30/24 11/30/24 22:59 06:59 14:59 Intake Total 350 / 695.882 222 / 917.882 200 / 200 Output Total 150 / 200 Balance 350 / 645.882 72 / 717.882 200 / 200 Weight last 48 hrs Weight 53.5 kg Weight 51.982 kg Physical Exam 2 Const: COMMON NORMALS: no acute distress, average body habitus, patient oriented x3 and no limitations ORIENTATION/CONSCIOUSNESS: Yes awake, Yes oriented to place and Yes oriented to time HENMT: COMMON NORMALS: normocephalic and atraumatic HEAD & SCALP: n ormocephalic and atraumatic Eye: COMMON NORMALS: EOMs intact bilaterally and no scleral icterus Neck/C-Spine: COMMON NORMALS: full ROM and no JVD Resp: EFFORT & INSPECTION: Yes decreased respiratory effort AUSCULTATION: d iminished lung sounds Cardio: COMMON NORMALS: no JVD, regular rate, regular rhythm, S1 normal heart sound present and S2 normal heart sound present JUGULAR VENOUS DISTENTION: no JVD RATE: regular rate RHYTHM: regular rhythm HEART SOUNDS: S1 normal heart sound present and S2 normal heart sound present GI: COMMON NORMALS: Soft to palpation and non-tender PALPATION: Yes Soft to palpation Extremity: COMMON NORMALS: normal to inspection and no pedal edema Neuro: COMMON NORMALS: patient oriented x3 SENSORIUM/ORIENTATION: Yes oriented to place and Yes oriented to time Psych: COMMON NORMALS: mental status grossly normal and cooperative Skin: COMMON NORMALS: no rashes or lesions noted GENERAL SKIN EXAM: no rashes or lesions noted Urinary Catheter Management: Maldonado: Cath Placed During This Visit: yes Reason for Continuing Indwelling Catheter: Accurate Measurement of Urinary Output in Critically Ill Patients Urinary Catheter Date of Insertion: 11/28/24 Urinary Catheter Time of Insertion: 01:25 Data 11/30/24 05:01 11/30/24 05:01 Micro: Microbiology 11/29/24 09:45 Urine Culture - Preliminary Urine,Clean Catch A&P Assessment and plan (1) Acute kidney injury: BK- Her bk is likely due to atn secondary to infection/sepsis and contrast induced nephropathy. Her creatinine is worse today, but she is non-oliguric with stable lytes. - avoid further nephrotoxic agents acute on chronic hypoxic respiratory failure- Likely due to pneumonia sepsis- likely due to pneumonia. on cefepime per the porimary service acidosis- due to lactate, improved with ivf myastenia gravis metastatic squamous cell carcinoma of head/neck PDMP PDMP Reviewed: Not Reviewed Attestations 2 Medical Necessity Statement*: bk Time Spent in Patient Care: 25 minutes Coding Level of Care Code Acute Code for [facility] Diagnoses Acute kidney injury N17.9
--- NOTE | 2024-11-30 14:19 | PC.SOCIAL ---
IMM Update pg 2 of IMM updated and reviewed w/ patient. Copy provided and copy dated, initialed and placed in chart.
--- NOTE | 2024-11-30 14:52 | PC.NURSE ---
Pt pulled her port access line out.
--- NOTE | 2024-11-30 15:00 | PC.NURSE ---
Pt alert and oriented to self only. When asked where she was/what place is this her response Eleven , four , fifty one . When asked her age she responded with [age] , [age] , [age] .
[2024-11-30 17:22] LABS: Glucose Point of Care 175 mg/dL (70-110)
--- NOTE | 2024-11-30 18:33 | PM.PN ---
Vitals/I&O/Wt Last Vital Signs Temp 97.5 F L 11/30/24 08:00 Pulse 82 11/30/24 18:00 Resp 23 H 11/30/24 18:00 BP 115/77 11/30/24 18:00 Pulse Ox 99 11/30/24 18:00 O2 Del Method Nasal Cannula 11/30/24 18:00 O2 Flow Rate 4 11/30/24 18:00 11/30/24 11/30/24 11/30/24 06:59 14:59 22:59 Intake Total 222 / 917.882 200 / 200 Output Total 150 / 200 175 / 175 Balance 72 / 717.882 200 / 200 -175 / 25 Weight last 48 hrs Weight 53.5 kg Weight 51.982 kg Physical Exam Narrative: General: Patient is sleeping. Awakens to voice. Appears fatigued. Very pleasant. Head: Temporal wasting. Neck: No JVD. Cardiovascular: RRR. No gallops. No murmurs. Lungs: Persistently poor air movement. Left-sided rhonchi. Tachypneic. On supplemental support. Skin: No jaundice. No rashes. Abdomen: Hypoactive bowel sounds, abdomen soft and nontender. Extremities: No cyanosis or clubbing. Musculoskeletal: No swollen or erythematous joints. Neurological: Moves all 4 extremities. No myoclonus. Urinary Catheter Management: Maldonado: Cath Placed During This Visit: yes Reason for Continuing Indwelling Catheter: Accurate Measurement of Urinary Output in Critically Ill Patients Urinary Catheter Date of Insertion: 11/28/24 Urinary Catheter Time of Insertion: 01:25 Data 11/30/24 05:01 11/30/24 05:01 Micro: Microbiology 11/29/24 09:45 Urine Culture - Preliminary Urine,Clean Catch A&P Assessment and plan (1) Delirium: (2) Severe sepsis: Endorgan damage: Acute on chronic hypoxic respiratory failure, severely elevated lactic acid, acute kidney injury with transaminitis Source: Left sided pneumonia Bacterial antigens negative, sputum culture negative. Repeat sputum culture. Follow-up urine culture results. BCx NGTD Goal blood pressure less than 140/90 MAG with mean over 65. Continue broad-spectrum antibiotics with cefepime (11/27-11/30). Switch to IV meropenem 1 mg every 8 hours. Change as per creatinine clearance. MRSA swab negative. Persistent leukocytosis. Watch for C. difficile. Currently no diarrhea. (3) Acute kidney injury: Oliguric acute kidney injury likely in setting of sepsis along with [facility] Nephrology on board. Minimal urine output. Appreciate electrolytes. Patient developing metabolic acidosis. Worsening uremia. IV Lasix 40 mg one-time. Strict input charting, daily weights. Appreciate renal ultrasound. (4) Pneumonia, community acquired: Left-sided community-acquired pneumonia Bacterial antigens are negative Aggressive pulmonary toilet with incentive spirometry. Antibiotics as above. (5) Acute on chronic hypoxic respiratory failure: Acute on chronic hypoxic respiratory failure, baseline O2 is 4 L at home Oxygen supplementation keeping saturation over 88%. Wean accordingly. (6) COPD (chronic obstructive pulmonary disease): Acute COPD exacerbation, advanced emphysema Wean Solu-Medrol 40 mg every 8 hours. Pulmicort twice daily, DuoNeb every 6 hour. Qualifiers: COPD type: chronic bronchitis Chronic bronchitis type: simple Qualified Code(s): J41.0 - Simple chronic bronchitis (7) Elevated troponin: Transthoracic echocardiogram reviewed, there is hypokinesis of the mid distal anterior/anteroseptal wall segments, LVEF 50%, RV function normal Continues telemetry monitoring Finished 48 hours of heparin drip. Transition to prophylactic dose. Denies any chest pain. Continue with aspirin, beta-akash. Holding off on statin given transaminitis. Monitor blood pressures. Patient would benefit with outpatient ACS workup with Lexiscan stress test once clinically improved. (8) Myasthenia gravis: Myasthenia gravis Neurology evaluated on admission. Steroid as above. Continue with home dose of pyridostigmine. Daily NIF (9) Transaminitis: (10) Muscle wasting: (11) Pulmonary hypertension: Echo showed normal RV function Continue supplemental oxygen (12) Metastatic squamous cell carcinoma: Fairly recently diagnosed metastatic stage Jeff squamous cell carcinoma of head/neck Following with [facility] oncology, she has not started chemo or radiation yet Long-term prognosis seems poor Plan Transaminitis: Worsening liver functions. Elevated alkaline phosphatase. Bilirubin normal. Abdominal ultrasound on 11/29 shows no gallbladder stones or sludge. Concern for gallbladder wall thickening with pericholecystic fluid. Will check HIDA scan. Appreciate vitamin B12 levels. Negative hepatitis panel. Continue to monitor. Delirium: Could be in setting of uremia. Patient does have worsening transaminitis. Will check ammonia levels. Frequent reorientation. Sitter if needed. DVT prophylaxis: Heparin 5000 Q12 hourly. Regular diet. CODE STATUS: DNR and DNI-confirmed with patient. PDMP PDMP Reviewed: Not Reviewed Attestations Medical Necessity Statement*: Requires further hospitalization for management of multiorgan dysfunction with oliguric BK, transaminitis with concerns for acalculous cholecystitis, severe sepsis because of left lower lobe pneumonia, delirium Diagnoses Delirium R41.0 Severe sepsis A41.9; R65.20 Acute kidney injury N17.9 Pneumonia, community acquired J18.9 Acute on chronic hypoxic respiratory failure J96.21 Simple chronic bronchitis J41.0 COPD type: chronic bronchitis Chronic bronchitis type: simple Elevated troponin R79.89 Myasthenia gravis G70.00 Transaminitis R74.01 Muscle wasting M62.50 Pulmonary hypertension I27.20 Metastatic squamous cell carcinoma
--- NOTE | 2024-11-30 19:09 | PC.NURSE ---
Shift summary: Pt rested in bed throughout shift. She is alert to self. She has difficulty recalling her birthdate, whey she is here, where, etc. She rattles off different numbers when asked. She tried to get out of bed once, she stated she need to urinate when in fact she was incontinent of BM. She pulled her pulse ox probe off her forehead and her nasal cannula out of her nose occasionally. She pulled out the access line for her Port site. No issues with port site afterwards. She received Lasix IV. Her urine output was only 175ml with slight sediment noted. Her BM was large, brown and pasty. Pericare and linen change provided. She denies pain. She is eager for her meal trays but just picks at them. Fluid restriction started today, her liquid intake this shift was no more than 300ml.
[2024-11-30 22:58] LABS: Glucose Point of Care 136 mg/dL (70-110)
[2024-12-01] VITALS (68 sets, daily range): BP systolic 84–137; BP diastolic 54–86; PULSE 61–87; RESP 11–30; TEMP 36.3–37.1; O2SAT 65–100
[2024-12-01] MEDS: acetaminophen 325 mg Tablet 650 MG PO (00:56)
[2024-12-01] MEDS: meropenem 1,000 mg SDV 1000 MG IVP ×3 (00:57→21:23)
[2024-12-01] MEDS: ipratropium-albuterol 3 mL Neb INHALATION ×4 (02:25→21:19)
--- NOTE | 2024-12-01 02:45 | PC.NURSE ---
Medical Restraints Patient attempting to get out of bed multiple times while also pulling her oxygen and vital sign wires off. During this movement, patient's oxygen saturation decreased into the high 70s, low 80s. Dr. Farias notified and order received for medical restraints.
[2024-12-01 04:05] LABS: Basophils % 0.1 %; Eosinophils % 0.1 %; Hematocrit 36.3 % (36-47); Lymphocytes # 0.5 10^3/uL (0.8-4.8); Lymphocytes % 2.7 %; Mean Corpuscular HGB Conc 30.3 g/dL (30-55); Mean Corpuscular Hemoglobin 24.9 pg (27-33); Mean Corpuscular Volume 82.3 fl (85-98); Mean Platelet Volume 11.8 fL (7.4-10.4); Monocytes # 0.5 10^3/uL (0.2-0.9); Monocytes % 2.7 %; Neutrophils # 16.83 10^3/uL (1.8-7.7); Neutrophils % 93.2 %; Nucleated Red Blood Cells # 0.2 /100WBC; Nucleated Red Blood Cells % 0.9 %; Platelet Count 186 10^3/cmm (157-399); Red Blood Count 4.41 10^6/uL (3.85-5.65); Red Cell Distribution Width 17.2 % (12.1-15.1); White Blood Count 18.05 10^3/uL (3.29-11.43)
[2024-12-01 04:24] LABS: Ammonia 24 umol/L (11-51)
[2024-12-01 04:39] LABS: Alanine Aminotransferase 267 U/L (0-33); Albumin Level 3.3 g/dL (3.5-5.2); Alkaline Phosphatase 169 U/L (35-105); Anion Gap 21.6 (5-19); Aspartate Amino Transferase 103 U/L (0-32); Blood Urea Nitrogen 78 mg/dL (8-23); Calcium 8.2 mg/dL (8.5-10.5); Carbon Dioxide 14 mmol/L (22-29); Chloride 103 mmol/L (98-107); Creatinine Clr Calc Pharmacy 11.2859; Globulin 3.4 g/dL (1.3-4.6); Glucose 144 mg/dL (65-115); Magnesium 2.1 mg/dL (1.7-2.3); Osmolality Calculated 302 mOsm/kg (285-295); Potassium 5.6 mmol/L (3.5-5.1); Sodium 133 mmol/L (136-145); Total Bilirubin 0.7 mg/dL (0.15-1.2); Total Protein 6.7 g/dL (6.6-8.7)
[2024-12-01 05:06] LABS: Folate Level > 20.0 ng/mL (4.8-37.3)
--- NOTE | 2024-12-01 05:40 | PC.NURSE ---
Ativan HIDA scan to be started soon yet patient still attempting to pull at wires and pedro catheter with medical restraints in place. Dr. Farias contacted and order received for 1 mg ativan IVP once.
[2024-12-01] MEDS: LORazepam 2 mg/mL INJ 1 mL 1 MG IVP (05:46)
[2024-12-01] MEDS: methylPREDNISolone sod succ 40 mg/mL INJ IVP ×3 (05:49→21:36)
[2024-12-01 08:05] LABS: Glucose Point of Care 136 mg/dL (70-110)
--- NOTE | 2024-12-01 08:47 | NM_ITS ---
WS: [id number] NUCLEAR MEDICINE HIDA SCAN WITH GALLBLADDER EJECTION FRACTION HISTORY: concern for acalculous cholecystitis COMPARISON: Abdomen ultrasound 11/29/2024 TECHNIQUE: The patient was intravenously injected with 8.2 mCi of TC99m Mebrofenin. Immediate imaging over the right upper quadrant was followed by 5 minute image and additional images for a total of 60 minutes. Please note patient had to be an sedated prior to exam due to lack of cooperation. Normal uptake of radiotracer throughout the liver. Activity identified in the gallbladder at 20 minutes and well distended by 60 minutes. No activity beyond the distal common bile duct. No small bowel activity at 60 minutes. Despite multiple attempts patient could not drink the fatty meal. Gallbladder ejection fraction could not be obtained. Post fatty meal symptoms: None. NM/NM hepatobiliary w phar* [id number] IMPRESSION: 1. Normal HIDA scan. No cystic obstruction. 2. No radionuclide identified in the small bowel. Radionuclide is identified t o the distal common bile duct where there is an abrupt termination. Cannot excl ude distal common bile duct obstruction. On recent CT and ultrasound the common bile duct was normal at approximately 6 mm. MRCP would be of benefit when the patient is able to cooperate. 3. Unsuccessful at obtaining gallbladder ejection fraction at as the patient r efused to drink the fatty meal.
[2024-12-01] MEDS: heparin 5,000 unit/mL INJ 1 mL 5000 UNIT SUBCUT ×2 (08:57→21:31)
[2024-12-01] MEDS: calcium carbonate 600 mg Tablet PO (09:02)
[2024-12-01] MEDS: folic acid 1 mg Tablet PO (09:02)
[2024-12-01] MEDS: aspirin 81 mg EC Tablet PO (09:02)
[2024-12-01] MEDS: pyridostigmine 60 mg Tablet PO ×4 (09:02→21:40)
[2024-12-01] MEDS: pantoprazole DR 40 mg Tablet PO (09:02)
[2024-12-01] MEDS: metoprolol tartrate 25 mg Tablet PO ×2 (09:08→21:40)
[2024-12-01] MEDS: budesonide 0.5 mg/2 mL Neb INHALATION ×2 (09:12→21:20)
--- NOTE | 2024-12-01 09:36 | PC.RESP ---
pt unable to do nif at this time
--- NOTE | 2024-12-01 10:07 | MRR_ITS ---
PROCEDURE INFORMATION: Exam: MR Abdomen Without Contrast Exam date and time: 12/01/2024 4:14 PM Age: 74 years old Clinical indication: Abdominal pain; Generalized; Additional info: Concern for cbd distal obs TECHNIQUE: Imaging protocol: Magnetic resonance imaging of the abdomen without contrast. COMPARISON: 1. CT angio chest w abd pel w con 11/27/2024 5:34 PM 2. US abdomen complete* [id number] 11/29/2024 4:30 PM FINDINGS: Pleural spaces: Trace bilateral pleural effusions. Liver: No mass. Gallbladder and biliary ducts: Diffuse gallbladder wall thickening is again seen, measuring up to 8 mm in thickness. Blunted appearance of the distal common bile ducts of the level of the ampulla. No intrahepatic or extrahepatic biliary ductal dilatation. No filling defects within the common bile duct. Pancreas: Unremarkable. No ductal dilation. Spleen: Unremarkable. No splenomegaly. Adrenal glands: Unremarkable. No mass. Kidneys: Unremarkable. No solid mass. No hydronephrosis. Stomach and bowel: Visualized stomach and intestines are unremarkable. Intraperitoneal space: Small volume free fluid in the abdomen. Vasculature: No abdominal aortic aneurysm. Lymph nodes: No enlarged nodes. Bones/joints: Unremarkable. No suspicious lesions. Soft tissues: Diffuse anasarca. MR/MR MRCP [id number] IMPRESSION: 1. Blunted appearance of the distal common bile duct at the level of the ampulla. However, there is no upstream biliary ductal dilatation, making obstruction less likely. 2. Ongoing diffuse gallbladder wall thickening. Findings are commonly seen with cholecystitis and underlying liver disease among other etiologies. 3. Ongoing small volume ascites and diffuse anasarca.
[2024-12-01 12:30] LABS: Glucose Point of Care 136 mg/dL (70-110)
--- NOTE | 2024-12-01 14:01 | PM.PN ---
Subjective Subjective: Patient is confused in restraints. She is on 4L o2. Medications: Reviewed: Yes Vitals/I&O/Wt Last Vital Signs Temp 97.4 F L 12/01/24 04:15 Pulse 80 12/01/24 13:30 Resp 18 12/01/24 13:20 BP 120/77 12/01/24 13:30 Pulse Ox 89 L 12/01/24 13:30 O2 Del Method High Flow Nasal Cannula 12/01/24 13:20 O2 Flow Rate 4 12/01/24 13:20 11/30/24 12/01/24 12/01/24 22:59 06:59 14:59 Intake Total Output Total 175 / 175 150 / 325 Balance -155 / 45 -150 / -105 Weight last 48 hrs Weight 53.5 kg Weight 53.5 kg Physical Exam Const: COMMON NORMALS: no acute distress and average body habitus EXAM LIMITATIONS: altered mental status HENMT: COMMON NORMALS: normocephalic and atraumatic HEAD & SCALP: normocephalic and atraumatic Eye: COMMON NORMALS: EOMs intact bilaterally and no scleral icterus Neck/C-Spine: COMMON NORMALS: full ROM and no JVD Resp: EFFORT & INSPECTION: Yes decreased respiratory effort AUSCULTATION: diminished lung sounds Cardio: COMMON NORMALS: no JVD, regular rate, regular rhythm, S1 normal heart sound present and S2 normal heart sound present RATE: regular rate RHYTHM: regular rhythm HEART SOUNDS: S1 normal heart sound present and S2 normal heart sound present GI: COMMON NORMALS: Soft to palpation and non-tender INSPECTION: Yes normal to inspection PALPATION: Yes Soft to palpation Extremity: COMMON NORMALS: normal to inspection and no pedal edema Neuro: SENSORIUM/ORIENTATION: Yes somnolent and Yes fluctuating sensorium Psych: ATTITUDE: Yes agitated Skin: COMMON NORMALS: no rashes or lesions noted GENERAL SKIN EXAM: no rashes or lesions noted Urinary Catheter Management: Maldonado: Cath Placed During This Visit: yes Reason for Continuing Indwelling Catheter: Accurate Measurement of Urinary Output in Critically Ill Patients Urinary Catheter Date of Insertion: 11/28/24 Urinary Catheter Time of Insertion: : Data 12/01/24 03:49 12/01/24 03:49 Micro: Microbiology 11/29/24 09:45 Urine Culture - Final Urine,Clean Catch A&P Assessment and plan (1) Acute kidney injury: BK- Her bk is likely due to atn secondary to infection/sepsis and contrast induced nephropathy. Her creatinine continues to rise and her uop is now diminished. She is also mildly hyperkalemic. - I will start iv bicarbonate support. if her renal function continues to decline, she will need to initiate renal replacement therapy in the next 24-48 hours. - avoid further nephrotoxic agents acute on chronic hypoxic respiratory failure- improved. Likely due to pneumonia sepsis- likely due to pneumonia. on cefepime per the primary service acidosis- due to lactate and initially improved with ivf. her acidosis is now likely due to her bk. i will staft iv bicarb as above myastenia gravis metastatic squamous cell carcinoma of head/neck PDMP PDMP Reviewed: Not Reviewed Attestations Medical Necessity Statement*: bk Time Spent in Patient Care: 25 minutes Coding [facility] Acute kidney injury N17.9
[2024-12-01] MEDS: sodium bicarbonate 150 MEQ in dextrose 5% 1,000 ML 100 MEQ IV (14:17)
[2024-12-01 15:17] LABS: Calcium 8.4 mg/dL (8.5-10.5); Carbon Dioxide 14 mmol/L (22-29); Chloride 101 mmol/L (98-107); Creatinine Clr Calc Pharmacy 11.9129; Glucose 152 mg/dL (65-115); Osmolality Calculated 303 mOsm/kg (285-295); Sodium 132 mmol/L (136-145)
[2024-12-01 15:20] LABS: Anion Gap 22.5 (5-19); Potassium 5.5 mmol/L (3.5-5.1)
[2024-12-01 15:21] LABS: Blood Urea Nitrogen 86 mg/dL (8-23)
[2024-12-01] MEDS: morphine 4 mg/mL SDV 1 mL 2 MG IVP (15:53)
[2024-12-01] MEDS: dextrose 10% 250 ML 1000 ML IV (17:56)
[2024-12-01] MEDS: insulin regular-human 100 units/1 mL 10 UNIT IVP (17:56)
[2024-12-01 18:05] LABS: Glucose Point of Care 145 mg/dL (70-110)
[2024-12-01] MEDS: insulin lispro 100 unit/1 mL SUBCUT ×2 (18:05→21:32)
[2024-12-01 21:21] LABS: Glucose Point of Care 142 mg/dL (70-110)
[2024-12-01 21:57] LABS: Potassium 5.2 mmol/L (3.5-5.1)
--- NOTE | 2024-12-01 21:59 | XRR_ITS ---
PROCEDURE INFORMATION: Exam: XR Chest Exam date and time: 12/01/2024 10:07 PM Age: 74 years old Clinical indication: Other: Hypoxia TECHNIQUE: Imaging protocol: Radiologic exam of the chest. Views: 1 view. COMPARISON: CR XR chest 1V portable [id number] 11/30/2024 11:19 AM FINDINGS: Tubes, catheters and devices: Left IJ Port-A-Cath is in stable position. Lungs: Ongoing left basilar opacities. No new airspace disease. Pleural spaces: Similar small left pleural effusion. Heart/Mediastinum: Stable cardiomediastinal silhouette. Bones/joints: Unremarkable. XR/XR chest 1V portable [id number] IMPRESSION: Similar small left pleural effusion with left basilar opacities.
--- NOTE | 2024-12-01 22:01 | PM.PN ---
Subjective Subjective: Seen multiple during the day today. Today morning patient developed to more lethargic. Able to tell me her name and date of but in a garbled voice. Not oriented to place. Complaining of pain in right upper quadrant of abdomen. Currently on 6 L. Has remained hemodynamically stable and afebrile. Medications: Reviewed: Yes Vitals/I&O/Wt Last Vital Signs Temp 98.3 F 12/01/24 18:00 Pulse 76 12/01/24 21:20 Resp 22 H 12/01/24 21:20 BP 115/69 12/01/24 20:00 Pulse Ox 91 12/01/24 21:20 O2 Del Method High Flow Nasal Cannula 12/01/24 21:20 O2 Flow Rate 15 12/01/24 21:20 12/01/24 12/01/24 12/01/24 06:59 14:59 22:59 Intake Total 721.667 / 721.667 Output Total 150 / 325 250 / 250 Balance -150 / -105 471.667 / 471.667 Weight last 48 hrs Weight 53.5 kg Weight 53.5 kg Physical Exam Narrative: General: No acute distress, drowsy, AO x 1 to 2, Head: Temporal wasting. Neck: No JVD. Cardiovascular: RRR. No gallops. No murmurs. Lungs: Persistently poor air movement. Bronchial breath into lower lung ness with coarse tremor present bilaterally left more than right tachypneic. On supplemental support. Skin: No jaundice. No rashes. Abdomen: Hypoactive bowel sounds, abdomen soft and nontender. Extremities: No cyanosis or clubbing. Musculoskeletal: No swollen or erythematous joints. Neurological: Moves all 4 extremities. No myoclonus. Urinary Catheter Management: Maldonado: Cath Placed During This Visit: yes Reason for Continuing Indwelling Catheter: Accurate Measurement of Urinary Output in Critically Ill Patients Urinary Catheter Date of Insertion: 11/28/24 Urinary Catheter Time of Insertion: :25 Data 12/01/24 03:49 12/01/24 14:55 Micro: Microbiology 11/29/24 09:45 Urine Culture - Final Urine,Clean Catch A&P Assessment and plan (1) Delirium: (2) Severe sepsis: Endorgan damage: Acute on chronic hypoxic respiratory failure, severely elevated lactic acid, acute kidney injury with transaminitis Source: Left sided pneumonia Bacterial antigens negative, sputum culture negative. Repeat sputum culture. Follow-up urine culture results. BCx NGTD Goal blood pressure less than 140/90 nnhg with mean over 65. Continue broad-spectrum antibiotics with cefepime (11/27-11/30). Continue with IV meropenem 1 mg every 8 hours. Change as per creatinine clearance. MRSA swab negative. Persistent leukocytosis though patient has remained afebrile. Watch for C. difficile. Currently no diarrhea. (3) Acute kidney injury: Oliguric acute kidney injury likely in setting of sepsis along with [facility] on board. Minimal urine output. Patient now developing hyperkalemia and metabolic acidosis. Continues to have worsening uremia. Will repeat BMP later in the afternoon. Depending on the hyperkalemia will plan to treat with bicarb drip while watching for fluid overload. Discussed in detail with public relations writer. If patient continues to have worsening uremia, oliguria, electrode abnormalities patient will most likely need hemodialysis. Will discuss further with patient's caregiver/DPOA/son regarding goals of care. Treat hyperkalemia with D 10 along with 10 units of insulin, bicarb drip at 50 cc/h. Repeat potassium level in evening. Strict input charting, daily weights. Appreciate renal ultrasound. (4) Pneumonia, community acquired: Left-sided community-acquired pneumonia Bacterial antigens are negative Aggressive pulmonary toilet with incentive spirometry. Antibiotics as above. (5) Acute on chronic hypoxic respiratory failure: Acute on chronic hypoxic respiratory failure, baseline O2 is 4 L at home Oxygen supplementation keeping saturation over 88%. Wean accordingly. Currently on 6 L. (6) COPD (chronic obstructive pulmonary disease): Acute COPD exacerbation, advanced emphysema Continue with Solu-Medrol 40 mg every 8 hours. Pulmicort twice daily, DuoNeb every 6 hour. Qualifiers: COPD type: chronic bronchitis Chronic bronchitis type: simple Qualified Code(s): J41.0 - Simple chronic bronchitis (7) Transaminitis: (8) Hyperkalemia: (9) Uremia: (10) Metabolic acidosis: (11) Pulmonary hypertension: Echo showed normal RV function Continue supplemental oxygen (12) Elevated troponin: Transthoracic echocardiogram reviewed, there is hypokinesis of the mid distal anterior/anteroseptal wall segments, LVEF 50%, RV function normal Continues telemetry monitoring Finished 48 hours of heparin drip. Transition to prophylactic dose. Denies any chest pain. Continue with aspirin, beta-akash. Holding off on statin given transaminitis. Monitor blood pressures. Patient would benefit with outpatient ACS workup with Lexiscan stress test once clinically improved. (13) Myasthenia gravis: Myasthenia gravis Neurology evaluated on admission. Steroid as above. Continue with home dose of pyridostigmine. 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 As per patient sister she is usually dependent for ADLs on the sister and patient's son. Usually she is spending most of her day in the couch. She is due for getting radiation therapy for lung cancer. Discussed unfortunately patient has significant debilitation and deconditioning of worsening her quality of life due to current illness, multiorgan dysfunction with acute kidney injury with poor urine output with worsening uremia leading to possible confusion, liver dysfunction. Discussed further goals of care with options of hospice versus continuation of current treatment though also discussed there is a high chance that patient would not come back to her baseline quality of life which to start with was poor. Discussed that there is a high chance patient would need hemodialysis. Patient son is the DPOA. Have requested patient's son to be present in hospital within next 24 hours for a possible goals of care. As per patient sister they will both be present tomorrow to discuss further goals of care. Plan Transaminitis: Cannot rule out hepatorenal syndrome. Worsening liver functions. Elevated alkaline phosphatase. Bilirubin normal. Abdominal ultrasound on 11/29 shows no gallbladder stones or sludge. Concern for gallbladder wall thickening with pericholecystic fluid. Appreciate HIDA scan. Patient could not finish the study because of not able to follow directions regarding swallowing Ensure. Discussed results which shows possibility of distal CBD obstruction though otherwise negative HIDA scan with surgical team. Recommend MRCP though cholecystitis for now less likely as per surgical team. Appreciate vitamin B12 levels. Negative hepatitis panel. Continue to monitor. Cannot rule out hepatorenal syndrome. Will plan to start midodrine 10 mg 3 times daily along with IV albumin. Delirium: Could be in setting of uremia versus in setting of sepsis. Normal ammonia levels. Frequent reorientation. Sitter if needed. DVT prophylaxis: Heparin 5000 Q12 hourly. Regular diet. CODE STATUS: DNR and DNI-confirmed with patient. PDMP PDMP Reviewed: Not Reviewed Attestations Medical Necessity Statement*: Requires further hospitalization for management of hypoxic respiratory failure in setting of left lower lobe pneumonia in a patient with baseline lung cancer, acute kidney injury with oliguria, hyperkalemia, metabolic acidosis, transaminitis with concerns of possible cholecystitis versus hepatorenal syndrome will further goals of care discussions on home Critical Care Time: The high probability of a clinically significant, sudden or life threatening deterioration of the patient's [cardiac, pulmonary, renal, hepatic] system(s) required my full and direct attention, intervention and personal management. The critical care time is as shown. This time is in addition to time spent performing any reported procedures but includes the following: [x] Data and vital sign review and interpretation [x] Patient assessment, examination and intervention [x] Documentation [x] Medication orders and management Critical Care Time (min): 80 Coding Level of Care Code Critical Care >/= 30 minutes Critical care time (in minutes): 70 The high probability of a clinically significant, sudden or life threatening deterioration, as referenced in this documentation, required my full and direct attention, intervention and personal management. The critical care time shown is in addition to time spent performing any reported separately billable procedures and includes the following: [x] Data and vital sign review and interpretation [x] Patient assessment, examination and intervention [x] Medication orders and management [x] Patient/Family updates as able [x] Care Coordination and Documentation. Other Coding Information This patient has a high probability of clinically significant, sudden or life threatening deterioration of the patient's (neurological/pulmonary/cardiac/renal/ID/endocrine) systems required my full, direct attention, the highest level of physician preparedness for urgent intervention and personal management. I managed/supervised life or organ supporting interventions that required frequent physician assessment. I devoted my full attention in the ICU to the direct care of this patient for the period of time indicated above. Time I spent with family or surrogate(s) is included only if the patient was incapable of providing necessary information or participating in decision making. This time includes the following services provided: Telemetry review Nonmechanical ventilation Hemodynamic interpretation, assessment and management Review and interpretation of CXR Review and interpretation of lab values Review and interpretation of microbiologic data and culture results Review of medications and administration Review and interpretation of Nutrition requirements and management Discussion of management with other consultants and services Clinical update to family members Diagnoses Delirium R41.0 Severe sepsis A41.9; R65.20 Acute kidney injury N17.9 Pneumonia, community acquired J18.9 Acute on chronic hypoxic respiratory failure J96.21 Simple chronic bronchitis J41.0 COPD type: chronic bronchitis Chronic bronchitis type: simple Transaminitis R74.01 Hyperkalemia E87.5 Uremia N19 Metabolic acidosis E87.20 Pulmonary hypertension I27.20 Elevated troponin R79.89 Myasthenia gravis G70.00 Metastatic squamous cell carcinoma Muscle wasting M62.50 Goals of care, counseling/discussion Z71.89
[2024-12-01] MEDS: midodrine 5 mg TABLET 10 MG PO (23:14)
[2024-12-01 23:43] LABS: ABG PCO2 31.2 mmHg (35-45); ABG PH Result 7.32 (7.35-7.45); Alveolar-Arterial Oxygen Gradi 4.3 mmHg (5-10); Arterial Blood Gas Hematocrit 35.7 % (37-47); Base Excess ABG -8.8 mmol/L (-2.0-2.0); Blood Gas Allen Test Pos; Blood Gas Operator Identificat SAM; Blood Gas Sample Site Radial, right; Blood Gas Sample Type Arterial; Carboxyhemoglobin 1.2 %THgb (0.4-20.1); HCO3 ABG 16.1 mmol/L (22-26); HGB O2 Sat 92.5 % (95-100); Ionized Calcium Level - ABG 1.1 mmol/L (1.1-1.4); Methemoglobin 0.3 % (0.4-1.5); Oxygen Device NC; Oxygen Saturation ABG 93.9; Potassium Level - ABG 4.6 mmol/L (3.5-5.0); Total Hemoglobin 11.6 g/dL (12-16)
[2024-12-02] VITALS (28 sets, daily range): BP systolic 111–140; BP diastolic 72–88; PULSE 55–81; RESP 11–21; TEMP 36–37.1; O2SAT 81–100
--- NOTE | 2024-12-02 | PC.NURSE ---
Contact attempt Attempted to contact patient's son Miles to obtain telephone consent to transfuse albumin. Miles did not answer and a message was left. Patient unable to consent at this time due to lethargy.
--- NOTE | 2024-12-02 00:30 | PC.NURSE ---
Albumin Attempted to get consent for blood product administration from patient in order to administer albumin; patient unable to consent at this time. Patient is oriented to person and place, but only answers yes to any question asked of her. She does not seem to comprehend the teaching on albumin. Attempted to contact patient's son Miles to obtain telephone consent, but Miles did not answer. Left him a voicemail with instructions to call back when he can. Informed Dr Farias of the situation and received orders to hold administration of the albumin until consent can be obtained by either the patient or family member.
[2024-12-02] MEDS: morphine 4 mg/mL SDV 1 mL 2 MG IVP ×2 (00:47→14:48)
[2024-12-02] MEDS: albumin 25 G/100 ML BAG 60 G IV ×4 (00:55→22:40)
--- NOTE | 2024-12-02 01:03 | PC.NURSE ---
Consent Patient's son Miles called the unit back and gave telephone consent to infuse patient's albumin. Witnessed by LAURA Hadley and consent sheet with both nurse signatures placed in patient's chart.
[2024-12-02] MEDS: ipratropium-albuterol 3 mL Neb INHALATION ×4 (02:56→20:17)
[2024-12-02 04:06] LABS: Basophils % 0.1 %; Hematocrit 34.1 % (36-47); Lymphocytes # 0.5 10^3/uL (0.8-4.8); Lymphocytes % 4.2 %; Mean Corpuscular HGB Conc 29.6 g/dL (30-55); Mean Corpuscular Hemoglobin 24.4 pg (27-33); Mean Corpuscular Volume 82.4 fl (85-98); Mean Platelet Volume 11.6 fL (7.4-10.4); Monocytes # 0.7 10^3/uL (0.2-0.9); Monocytes % 5.7 %; Neutrophils # 10.06 10^3/uL (1.8-7.7); Neutrophils % 88.9 %; Nucleated Red Blood Cells # 0.2 /100WBC; Nucleated Red Blood Cells % 1.9 %; Platelet Count 153 10^3/cmm (157-399); Red Blood Count 4.14 10^6/uL (3.85-5.65); Red Cell Distribution Width 17.3 % (12.1-15.1); White Blood Count 11.32 10^3/uL (3.29-11.43)
[2024-12-02 04:27] LABS: Magnesium 2.1 mg/dL (1.7-2.3)
[2024-12-02 04:38] LABS: Alanine Aminotransferase 192 U/L (0-33); Albumin Level 3.7 g/dL (3.5-5.2); Alkaline Phosphatase 175 U/L (35-105); Anion Gap 23.3 (5-19); Aspartate Amino Transferase 61 U/L (0-32); Carbon Dioxide 15 mmol/L (22-29); Chloride 104 mmol/L (98-107); Creatinine Clr Calc Pharmacy 11.5909; Globulin 2.7 g/dL (1.3-4.6); Glucose 185 mg/dL (65-115); Osmolality Calculated 315 mOsm/kg (285-295); Potassium 5.3 mmol/L (3.5-5.1); Sodium 137 mmol/L (136-145); Total Bilirubin 0.9 mg/dL (0.15-1.2); Total Protein 6.4 g/dL (6.6-8.7)
[2024-12-02 04:58] LABS: Blood Urea Nitrogen 85 mg/dL (8-23)
[2024-12-02] MEDS: methylPREDNISolone sod succ 40 mg/mL INJ IVP ×3 (06:11→20:54)
[2024-12-02] MEDS: midodrine 5 mg TABLET 10 MG PO ×3 (06:14→18:01)
[2024-12-02] MEDS: calcium carbonate 600 mg Tablet PO (08:42)
[2024-12-02] MEDS: insulin lispro 100 unit/1 mL SUBCUT ×2 (08:42→12:30)
[2024-12-02] MEDS: pantoprazole DR 40 mg Tablet PO (08:42)
[2024-12-02] MEDS: aspirin 81 mg EC Tablet PO (08:42)
[2024-12-02] MEDS: heparin 5,000 unit/mL INJ 1 mL 5000 UNIT SUBCUT ×2 (08:43→20:54)
[2024-12-02] MEDS: metoprolol tartrate 25 mg Tablet PO ×2 (08:43→20:54)
[2024-12-02] MEDS: oxyCODONE 5 mg IR Tab/Cap PO ×2 (08:43→22:33)
[2024-12-02] MEDS: folic acid 1 mg Tablet PO (08:43)
[2024-12-02] MEDS: pyridostigmine 60 mg Tablet PO ×4 (08:43→20:54)
[2024-12-02] MEDS: meropenem 1,000 mg SDV 1000 MG IVP ×2 (08:44→20:53)
[2024-12-02] MEDS: budesonide 0.5 mg/2 mL Neb INHALATION ×2 (09:13→20:18)
[2024-12-02 09:14] LABS: Glucose Point of Care 206 mg/dL (70-110)
[2024-12-02] MEDS: sodium bicarbonate 150 MEQ in dextrose 5% 1,000 ML 50 MEQ IV (10:04)
--- NOTE | 2024-12-02 11:02 | P.PN_ITS ---
Subjective 2 Subjective: Patient is awake and alert on 6L o2. She has no complaints Medications: Reviewed: Yes Vitals/I&O/Wt Last Vital Signs Temp 96.8 F L 12/02/24 06:00 Pulse 74 12/02/24 09:29 Resp 16 12/02/24 09:13 BP 112/72 12/02/24 00:00 Pulse Ox 94 12/02/24 09:13 O2 Del Method Nasal Cannula 12/02/24 09:13 O2 Flow Rate 6 12/02/24 09:13 12/01/24 12/02/24 12/02/24 22:59 06:59 14:59 Intake Total 721.667 / 721.667 478.333 / 1200.000 520 / 520 Output Total 250 / 250 400 / 650 100 / 100 Balance 471.667 / 471.667 78.333 / 550.000 420 / 420 Weight last 48 hrs Weight 53.5 kg Physical Exam 2 Const: COMMON NORMALS: no acute distress and average body habitus GENERAL APPEARANCE: cooperative and comfortable HENMT: COMMON NORMALS: normocephalic and atraumatic HEAD & SCALP: n ormocephalic and atraumatic Eye: COMMON NORMALS: EOMs intact bilaterally and no scleral icterus Neck/C-Spine: COMMON NORMALS: full ROM and no JVD Resp: EFFORT & INSPECTION: Yes decreased respiratory effort AUSCULTATION: d iminished lung sounds Cardio: COMMON NORMALS: no JVD, regular rate, regular rhythm, S1 normal heart sound present and S2 normal heart sound present RATE: regular rate RHYTHM: regular rhythm HEART SOUNDS: S1 normal heart sound present and S2 normal heart sound present GI: COMMON NORMALS: Soft to palpation and non-tender PALPATION: Yes Soft to palpation Extremity: COMMON NORMALS: normal to inspection and no pedal edema Neuro: COMMON NORMALS: moves all extremities and no focal motor deficits Psych: COMMON NORMALS: Normal thought process present, cooperative, normal affect and speech normal SPEECH: Yes normal speech THOUGHT PROCESS: Normal thought process present Skin: COMMON NORMALS: no rashes or lesions noted GENERAL SKIN EXAM: no rashes or lesions noted Urinary Catheter Management: Maldonado: Cath Placed During This Visit: yes Reason for Continuing Indwelling Catheter: Accurate Measurement of Urinary Output in Critically Ill Patients Urinary Catheter Date of Insertion: 11/28/24 Urinary Catheter Time of Insertion: 01:25 Data 12/02/24 03:45 12/02/24 03:45 Micro: Microbiology 11/29/24 09:45 Urine Culture - Final Urine,Clean Catch A&P Assessment and plan (1) Acute kidney injury: BK- Her bk is likely due to atn secondary to infection/sepsis and contrast induced nephropathy. Her creatinine is stable and she is non-oliguric with stable lytes. - I will cont iv bicarbonate support. There is no acute indication for renal replacement therapy at this time. - avoid further nephrotoxic agents acute on chronic hypoxic respiratory failure- improved. Likely due to pneumonia sepsis- likely due to pneumonia. on merrem per the primary service acidosis- due to lactate and initially improved with ivf. her acidosis is now likely due to her bk. i will cont iv bicarb as above myastenia gravis metastatic squamous cell carcinoma of head/neck PDMP PDMP Reviewed: Not Reviewed Attestations 2 Medical Necessity Statement*: bk Time Spent in Patient Care: 25 minutes Coding Level of Care Code Acute Code for [facility] Diagnoses Acute kidney injury N17.9
[2024-12-02 12:24] LABS: Glucose Point of Care 189 mg/dL (70-110)
--- NOTE | 2024-12-02 13:53 | PC.SOCIAL ---
IMM Update pg 2 of IMM updated and reviewed w/ patient. Copy provided and copy dated, initialed and placed in chart.
--- NOTE | 2024-12-02 16:25 | P.PN_ITS ---
Subjective 2 Subjective: No acute events overnight. Today morning seen with family at bedside. Patient is awake, alert to self and date of only. Denies any nausea, vomiting. Appreciate urine output of around 750 cc in last 24 hours. Hemodynamically has remained stable. Currently on 6 L saturating more than 97%. Medications: Reviewed: Yes Vitals/I&O/Wt Last Vital Signs Temp 98.7 F 12/02/24 08:00 Pulse 57 L 12/02/24 14:08 Resp 16 12/02/24 14:08 BP 126/80 12/02/24 14:00 Pulse Ox 96 12/02/24 14:08 O2 Del Method Nasal Cannula 12/02/24 14:08 O2 Flow Rate 6 12/02/24 14:08 12/02/24 12/02/24 12/02/24 06:59 14:59 22:59 Intake Total 478.333 / 1200.000 520 / 520 Output Total 400 / 650 100 / 100 Balance 78.333 / 550.000 420 / 420 Weight last 48 hrs Weight 53.5 kg Physical Exam 2 Narrative: General: No acute distress, drowsy, AO x 1 to 2, Head: Temporal wasting. Neck: No JVD. Cardiovascular: RRR. No gallops. No murmurs. Lungs: Persistently poor air movement. Bronchial breath into lower lung ness with coarse tremor present bilaterally left more than right tachypneic. On supplemental support. Skin: No jaundice. No rashes. Abdomen: Hypoactive bowel sounds, abdomen soft and nontender. Extremities: No cyanosis or clubbing. Musculoskeletal: No swollen or erythematous joints. Neurological: Moves all 4 extremities. No myoclonus. Urinary Catheter Management: Maldonado: Cath Placed During This Visit: yes Reason for Continuing Indwelling Catheter: Accurate Measurement of Urinary Output in Critically Ill Patients Urinary Catheter Date of Insertion: 11/28/24 Urinary Catheter Time of Insertion: :25 Data 12/02/24 03:45 12/02/24 03:45 A&P Assessment and plan (1) Delirium: (2) Severe sepsis: Endorgan damage: Acute on chronic hypoxic respiratory failure, severely elevated lactic acid, acute kidney injury with transaminitis Source: Left sided pneumonia Bacterial antigens negative, sputum culture negative. Repeat sputum culture. Follow-up urine culture results. BCx NGTD Goal blood pressure less than 140/90 mmhg with mean over 65. Continue broad-spectrum antibiotics with cefepime (11/27-11/30). Continue with IV meropenem 1 mg every 12 hours as per creatinine clearance. Will plan to finish a 5 to 7-day course. Leukocytosis resolving today. MRSA swab negative. (3) Acute kidney injury: Oliguric acute kidney injury likely in setting of sepsis along with [facility] on board. Minimal urine output. Patient now developing hyperkalemia and metabolic acidosis. Urine output slightly improving. Continue with bicarb drip at 50 cc/h. Monitor for fluid overload as well. Discussed in detail with back gray cloth washer. If patient continues to have worsening uremia, oliguria, electrode abnormalities patient will most likely need hemodialysis. Discussed in detail with patient's son/DPOA. He is agreeable to dialysis if needed. Repeat BMP in evening to monitor for potassium levels. Strict input charting, daily weights. Appreciate renal ultrasound. (4) Pneumonia, community acquired: Left-sided community-acquired pneumonia Bacterial antigens are negative Aggressive pulmonary toilet with incentive spirometry. Antibiotics as above. Does have parapneumonic effusion. Cannot rule out empyema given prolonged leukocytosis. Plan for thoracentesis. (5) Acute on chronic hypoxic respiratory failure: Acute on chronic hypoxic respiratory failure, baseline O2 is 4 L at home Currently on 6 L. Will plan to wean accordingly keeping saturation over 88%. (6) COPD (chronic obstructive pulmonary disease): Acute COPD exacerbation, advanced emphysema Wean Solu-Medrol 40 mg every 12 hourly. Pulmicort twice daily, DuoNeb every 6 hour. Qualifiers: COPD type: chronic bronchitis Chronic bronchitis type: simple Q ualified Code(s): J41.0 - Simple chronic bronchitis (7) Transaminitis: (8) Hyperkalemia: (9) Uremia: (10) Metabolic acidosis: (11) Pulmonary hypertension: Echo showed normal RV function Continue supplemental oxygen (12) Elevated troponin: Transthoracic echocardiogram reviewed, there is hypokinesis of the mid distal anterior/anteroseptal wall segments, LVEF 50%, RV function normal Continues telemetry monitoring Finished 48 hours of heparin drip. Transition to prophylactic dose. Denies any chest pain. Continue with aspirin, beta-akash. Holding off on statin given transaminitis. Monitor blood pressures. Patient would benefit with outpatient ACS workup with Lexiscan stress test once clinically improved. (13) Myasthenia gravis: Myasthenia gravis Neurology evaluated on admission. Steroid as above. Continue with home dose of pyridostigmine. 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 As per patient sister she is usually dependent for ADLs on the sister and patient's son. Usually she is spending most of her day in the couch. She is due for getting radiation therapy for lung cancer. Discussed unfortunately patient has significant debilitation and deconditioning of worsening her quality of life due to current illness, multiorgan dysfunction with acute kidney injury with poor urine output with worsening uremia leading to possible confusion, liver dysfunction. Discussed further goals of care with options of hospice versus continuation of current treatment though also discussed there is a high chance that patient would not come back to her baseline quality of life which to start with was poor. Discussed that there is a high chance patient would need hemodialysis. Patient son is the DPOA. Have requested patient's son to be present in hospital within next 24 hours for a possible goals of care. As per patient sister they will both be present tomorrow to discuss further goals of care. 12/02: Had extensive goals of care discussion at bedside with patient's sister and son who is also the DPOA. We discussed about patient's quality of life, severe deconditioning, multiorgan dysfunction with current sepsis, possible need of dialysis, delirium/poor mentation currently because of acute on chronic conditions. Family verbalized understanding and wants to continue with aggressive medical management as needed. They are agreeable for dialysis as needed. Discussed about safe discharge planning. Discussed that patient unfortunately has gotten fairly weak and would possibly need SNF placement for safe discharge planning. They are agreeable. Will get PT evaluation. Plan Transaminitis: Cannot rule out hepatorenal syndrome. Mild improvement in AST and ALT. Alkaline phosphatase elevated and stable. HIDA scan and MRCP appreciated. Low concerns for cholecystitis. Normal bilirubin levels. Discussed in detail with surgical team. Negative hepatitis panel. Continue to monitor. Cannot rule out hepatorenal syndrome. Continue with midodrine 10 mg 3 times daily along with IV albumin every 8 hourly. Delirium: Could be in setting of uremia versus in setting of sepsis. Normal ammonia levels. Frequent reorientation. Sitter if needed. Renal nondialysis diet. Heparin 5000 Q12 hourly for DVT prophylaxis CODE STATUS: DNR and DNI-confirmed with patient. PDMP PDMP Reviewed: Not Reviewed Attestations 2 Medical Necessity Statement*: Requires further hospitalization for management of significant oliguric acute kidney injury, uremia, metabolic acidosis, transaminitis with concern for hepatorenal syndrome in a patient admitted for hypoxic respiratory failure in setting of left lower lobe pneumonia, parapneumonic effusion Diagnoses Delirium R41.0 Severe sepsis A41.9; R65.20 Acute kidney injury N17.9 Pneumonia, community acquired J18.9 Acute on chronic hypoxic respiratory failure J96.21 Simple chronic bronchitis J41.0 COPD type: chronic bronchitis Chronic bronchitis type: simple Transaminitis R74.01 Hyperkalemia E87.5 Uremia N19 Metabolic acidosis E87.20 Pulmonary hypertension I27.20 Elevated troponin R79.89 Myasthenia gravis G70.00 Metastatic squamous cell carcinoma Muscle wasting M62.50 Goals of care, counseling/discussion Z71.89
[2024-12-02 18:05] LABS: Glucose Point of Care 144 mg/dL (70-110)
--- NOTE | 2024-12-02 19:00 | PC.NURSE ---
Patient restraints were not in use at 1900 when shift began.
[2024-12-02 20:29] LABS: Anion Gap 22.7 (5-19); Blood Urea Nitrogen 78 mg/dL (8-23); Calcium 8.6 mg/dL (8.5-10.5); Carbon Dioxide 18 mmol/L (22-29); Chloride 104 mmol/L (98-107); Creatinine Clr Calc Pharmacy 14.7885; Glucose 146 mg/dL (65-115); Osmolality Calculated 316 mOsm/kg (285-295); Potassium 4.7 mmol/L (3.5-5.1); Sodium 140 mmol/L (136-145)
[2024-12-02 21:20] LABS: Glucose Point of Care 98 mg/dL (70-110)
[2024-12-03] VITALS (38 sets, daily range): BP systolic 109–154; BP diastolic 60–107; PULSE 54–95; RESP 8–24; TEMP 33.8–36.2; O2SAT 5–100
[2024-12-03] MEDS: ipratropium-albuterol 3 mL Neb INHALATION ×3 (01:46→21:14)
[2024-12-03 03:51] LABS: Basophils % 0.1 %; Hematocrit 32.2 % (36-47); Lymphocytes # 0.4 10^3/uL (0.8-4.8); Mean Corpuscular HGB Conc 31.1 g/dL (30-55); Mean Corpuscular Volume 80.5 fl (85-98); Mean Platelet Volume 11.2 fL (7.4-10.4); Monocytes # 0.4 10^3/uL (0.2-0.9); Monocytes % 4.5 %; Neutrophils # 8.67 10^3/uL (1.8-7.7); Neutrophils % 90.3 %; Nucleated Red Blood Cells # 0.2 /100WBC; Nucleated Red Blood Cells % 1.9 %; Platelet Count 153 10^3/cmm (157-399); Red Cell Distribution Width 17.2 % (12.1-15.1)
[2024-12-03 04:23] LABS: Magnesium 2.1 mg/dL (1.7-2.3)
[2024-12-03 04:24] LABS: Alanine Aminotransferase 125 U/L (0-33); Albumin Level 4.5 g/dL (3.5-5.2); Alkaline Phosphatase 155 U/L (35-105); Anion Gap 21.4 (5-19); Aspartate Amino Transferase 39 U/L (0-32); Blood Urea Nitrogen 73 mg/dL (8-23); Calcium 8.5 mg/dL (8.5-10.5); Carbon Dioxide 22 mmol/L (22-29); Chloride 103 mmol/L (98-107); Creatinine Clr Calc Pharmacy 17.8694; Globulin 2.1 g/dL (1.3-4.6); Glucose 179 mg/dL (65-115); Osmolality Calculated 320 mOsm/kg (285-295); Potassium 4.4 mmol/L (3.5-5.1); Sodium 142 mmol/L (136-145); Total Bilirubin 1.2 mg/dL (0.15-1.2); Total Protein 6.6 g/dL (6.6-8.7)
[2024-12-03] MEDS: oxyCODONE 5 mg IR Tab/Cap PO (04:31)
--- NOTE | 2024-12-03 06:00 | US_ITS ---
WS: [id number] Ultrasound chest, LEFT. HISTORY: Evaluate for thoracentesis. There is a very small amount of pleural fluid. There is atelectatic lung extending in and out of the effusion during breathing. There is an insufficient fluid pocket in order to perform a safe thoracentesis. US/US chest [id number] IMPRESSION: Insufficient pleural fluid for safe thoracentesis.
[2024-12-03 07:51] LABS: Glucose Point of Care 188 mg/dL (70-110)
[2024-12-03] MEDS: methylPREDNISolone sod succ 40 mg/mL INJ IVP (08:00)
[2024-12-03] MEDS: pantoprazole DR 40 mg Tablet PO (08:00)
[2024-12-03] MEDS: insulin lispro 100 unit/1 mL SUBCUT ×2 (08:00→22:29)
[2024-12-03] MEDS: meropenem 1,000 mg SDV 1000 MG IVP ×2 (08:00→21:50)
[2024-12-03] MEDS: calcium carbonate 600 mg Tablet PO (08:01)
[2024-12-03] MEDS: folic acid 1 mg Tablet PO (08:01)
[2024-12-03] MEDS: metoprolol tartrate 25 mg Tablet PO ×2 (08:01→21:50)
[2024-12-03] MEDS: aspirin 81 mg EC Tablet PO (08:01)
[2024-12-03] MEDS: pyridostigmine 60 mg Tablet PO ×4 (08:01→21:48)
[2024-12-03] MEDS: morphine 4 mg/mL SDV 1 mL 2 MG IVP ×3 (08:42→23:14)
[2024-12-03] MEDS: budesonide 0.5 mg/2 mL Neb INHALATION ×2 (08:45→21:14)
[2024-12-03] MEDS: albumin 25 G/100 ML BAG 60 G IV ×2 (09:06→17:35)
[2024-12-03] MEDS: sodium chloride 0.45% 1,000 ML 50 ML IV (09:07)
[2024-12-03] MEDS: LORazepam 1 mg Tablet PO (10:34)
--- NOTE | 2024-12-03 12:04 | PC.OT ---
Attempted to see patient for OT evaluation. Patient lying in bed groaning. Unable to participate in evaluation at this time. Will attempt tomorrow.
[2024-12-03] MEDS: midodrine 5 mg TABLET 10 MG PO ×2 (12:51→17:34)
--- NOTE | 2024-12-03 13:33 | PC.NURSE ---
Transfer Note Patient transferred to med-surg room 273 from ICU via bed. Handoff report given to LAURA Puckett. Patient oriented to environment and equipment. Covering service notified. Orders reviewed and will continue to monitor. Family notified of patient transfer. All patient belongings including glasses and dentures transferred with patient and placed at bedside. Upon transfer patient wearing 5LNC, no wounds or skin issues noted at this time.
[2024-12-03 13:34] LABS: Glucose Point of Care 98 mg/dL (70-110)
--- NOTE | 2024-12-03 13:39 | PM.PN ---
Subjective Subjective: No acute vents overnight. Patient has remained hemodynamically stable and afebrile. On examination today morning patient seems to be in mild distress and is moaning though is not able to specify where the pain is. Oxygen levels have remained stable on 5 L. Dropping down to low 80s on baseline 4 L. Medications: Reviewed: Yes Vitals/I&O/Wt Last Vital Signs Temp 97.2 F L 12/03/24 04:00 Pulse 88 12/03/24 13:17 Resp 16 12/03/24 13:17 BP 124/83 12/03/24 12:30 Pulse Ox 92 12/03/24 13:17 O2 Del Method High Flow Nasal Cannula 12/03/24 13:17 O2 Flow Rate 4 12/03/24 13:17 12/02/24 12/03/24 12/03/24 22:59 06:59 14:59 Intake Total 100 / 620 100 / 720 1196.667 / 1196.667 Output Total 250 / 350 Balance -150 / 270 100 / 370 1196.667 / 1196.667 Weight last 48 hrs Weight 54 kg Physical Exam Narrative: General: In distress, moaning and groaning on examination, AO x 1 to 2, able to follow directions Head: Temporal wasting. Neck: No JVD. Cardiovascular: RRR. No gallops. No murmurs. Lungs: Persistently poor air movement. Bronchial breath into lower lung ness with coarse tremor present bilaterally left more than right tachypneic. On supplemental support. Skin: No jaundice. No rashes. Abdomen: Hypoactive bowel sounds, abdomen soft and nontender. Extremities: No cyanosis or clubbing. Musculoskeletal: No swollen or erythematous joints. Neurological: Moves all 4 extremities. No myoclonus. Urinary Catheter Management: Maldonado: Cath Placed During This Visit: yes Reason for Continuing Indwelling Catheter: Accurate Measurement of Urinary Output in Critically Ill Patients Urinary Catheter Date of Insertion: 11/28/24 Urinary Catheter Time of Insertion: : Data 12/03/24 03:30 12/03/24 03:30 Micro: Microbiology 11/27/24 16:38 Blood Culture - Final Blood NO GROWTH AFTER 5 DAYS 11/27/24 16:33 Blood Culture - Final Blood NO GROWTH AFTER 5 DAYS A&P Assessment and plan (1) Delirium: Acute on chronic delirium. Worsening in setting of uremia, BK, sepsis along with acute illness. Medical reconciliation done. Continue with home medications as possible. Start on Seroquel 25 mg oral nightly. (2) Severe sepsis: Endorgan damage: Acute on chronic hypoxic respiratory failure, severely elevated lactic acid, acute kidney injury with transaminitis Source: Left sided pneumonia Bacterial antigens negative, sputum culture negative. Repeat sputum culture. Follow-up urine culture results. BCx NGTD Goal blood pressure less than 140/90 mmhg with mean over 65. Continue broad-spectrum antibiotics with cefepime (11/27-11/30). Continue with IV meropenem 1 mg every 12 hours as per creatinine clearance. Will plan to finish a 5 to 7-day course. Leukocytosis resolving today. MRSA swab negative. (3) Acute kidney injury: Oliguric acute kidney injury likely in setting of sepsis along with [facility]ph[facility] on board. Minimal urine output. Patient now developing hyperkalemia and metabolic acidosis. Urine output slightly improving. Continue with bicarb drip at 50 cc/h. Monitor for fluid overload as well. Discussed in detail with x ray equipment mechanic. If patient continues to have worsening uremia, oliguria, electrode abnormalities patient will most likely need hemodialysis. Discussed in detail with patient's son/DPOA. He is agreeable to dialysis if needed. Repeat BMP in evening to monitor for potassium levels. Strict input charting, daily weights. Appreciate renal ultrasound. (4) Pneumonia, community acquired: Left-sided community-acquired pneumonia Bacterial antigens are negative Aggressive pulmonary toilet with incentive spirometry. Antibiotics as above. Does have parapneumonic effusion. Cannot rule out empyema given prolonged leukocytosis. Did not find enough fluid for safe tapping aspiration radiology department. (5) Acute on chronic hypoxic respiratory failure: Acute on chronic hypoxic respiratory failure, baseline O2 is 4 L at home Currently on 6 L. Will plan to wean accordingly keeping saturation over 88%. (6) COPD (chronic obstructive pulmonary disease): Acute COPD exacerbation, advanced emphysema Wean Solu-Medrol Pulmicort twice daily, DuoNeb every 6 hour. Qualifiers: COPD type: chronic bronchitis Chronic bronchitis type: simple Qualified Code(s): J41.0 - Simple chronic bronchitis (7) Transaminitis: (8) Hyperkalemia: (9) Uremia: (10) Metabolic acidosis: (11) Pulmonary hypertension: Echo showed normal RV function Continue supplemental oxygen (12) Elevated troponin: Transthoracic echocardiogram reviewed, there is hypokinesis of the mid distal anterior/anteroseptal wall segments, LVEF 50%, RV function normal Continues telemetry monitoring Finished 48 hours of heparin drip. Transition to prophylactic dose. Denies any chest pain. Continue with aspirin, beta-akash. Holding off on statin given transaminitis. Monitor blood pressures. Patient would benefit with outpatient ACS workup with Lexiscan stress test once clinically improved. (13) Myasthenia gravis: Myasthenia gravis Neurology evaluated on admission. Steroid as above. Continue with home dose of pyridostigmine. 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 As per patient sister she is usually dependent for ADLs on the sister and patient's son. Usually she is spending most of her day in the couch. She is due for getting radiation therapy for lung cancer. Discussed unfortunately patient has significant debilitation and deconditioning of worsening her quality of life due to current illness, multiorgan dysfunction with acute kidney injury with poor urine output with worsening uremia leading to possible confusion, liver dysfunction. Discussed further goals of care with options of hospice versus continuation of current treatment though also discussed there is a high chance that patient would not come back to her baseline quality of life which to start with was poor. Discussed that there is a high chance patient would need hemodialysis. Patient son is the DPOA. Have requested patient's son to be present in hospital within next 24 hours for a possible goals of care. As per patient sister they will both be present tomorrow to discuss further goals of care. 12/02: Had extensive goals of care discussion at bedside with patient's sister and son who is also the DPOA. We discussed about patient's quality of life, severe deconditioning, multiorgan dysfunction with current sepsis, possible need of dialysis, delirium/poor mentation currently because of acute on chronic conditions. Family verbalized understanding and wants to continue with aggressive medical management as needed. They are agreeable for dialysis as needed. Discussed about safe discharge planning. Discussed that patient unfortunately has gotten fairly weak and would possibly need SNF placement for safe discharge planning. They are agreeable. Will get PT evaluation. Plan Transaminitis: Cannot rule out hepatorenal syndrome. Mild improvement in AST and ALT. Alkaline phosphatase elevated and stable. HIDA scan and MRCP appreciated. Low concerns for cholecystitis. Normal bilirubin levels. Discussed in detail with surgical team. Negative hepatitis panel. Continue to monitor. Cannot rule out hepatorenal syndrome. Continue with midodrine 10 mg 3 times daily along with IV albumin every 8 hourly. Delirium: Could be in setting of uremia versus in setting of sepsis. Normal ammonia levels. Frequent reorientation. Sitter if needed. Renal nondialysis diet. Heparin 5000 Q12 hourly for DVT prophylaxis CODE STATUS: DNR and DNI-confirmed with patient. Plan for the day: Renal functions slightly improving. Uremia improving. Continue with gentle IV hydration. Change fluids to LR at 50 cc/h. Monitor BMP in afternoon. No electrolyte abnormality. Oxygen supplementation keeping saturation over 88%. For now continue with 5 L. Continue nebulization treatment. Change Solu-Medrol to 40 mg IV daily. Will try to wean down aggressively going forward. Watch for fluid overload. Repeat chest x-ray. Slight improvement in transaminitis. Continue treatment for hepatorenal syndrome with midodrine 10 mg 3 times daily. Change albumin to every 12 from every 8. Change home dose of Ativan to 0.5 every 6 as needed. Continue with current pain medications. Start on Seroquel 25 mg oral nightly. Patient did not have enough fluid for thoracentesis. Will restart anticoagulation. Leukocytosis continues to remain resolved. Continue with IV meropenem to finish a 5-day course. Changed dose as per creatinine clearance. Appreciate nephrology recommendations. PT/OT evaluation. Family agreeable with SNF placement. Case management alerted. Concern for mild aspiration. Speech evaluation. Transfer to MedSur floor. PDMP PDMP Reviewed: Not Reviewed Attestations Medical Necessity Statement*: Requires further hospitalization for management of sepsis, BK with uremia, delirium in setting of acute metabolic encephalopathy, transaminitis while safe discharge planning is sought in a patient initially admitted for severe sepsis with left lower lobe pneumonia with a chronic history of lung cancer Diagnoses Delirium R41.0 Severe sepsis A41.9; R65.20 Acute kidney injury N17.9 Pneumonia, community acquired J18.9 Acute on chronic hypoxic respiratory failure J96.21 Simple chronic bronchitis J41.0 COPD type: chronic bronchitis Chronic bronchitis type: simple Transaminitis R74.01 Hyperkalemia E87.5 Uremia N19 Metabolic acidosis E87.20 Pulmonary hypertension I27.20 Elevated troponin R79.89 Myasthenia gravis G70.00 Metastatic squamous cell carcinoma Muscle wasting M62.50 Goals of care, counseling/discussion Z71.89
--- NOTE | 2024-12-03 13:51 | P.PN_ITS ---
Subjective 2 Subjective: Patient has no new complaints on 5L Medications: Reviewed: Yes Vitals/I&O/Wt Last Vital Signs Temp 97.2 F L 12/03/24 04:00 Pulse 76 12/03/24 13:46 Resp 12 12/03/24 13:46 BP 127/83 12/03/24 13:46 Pulse Ox 100 12/03/24 13:46 O2 Del Method Nasal Cannula 12/03/24 13:46 O2 Flow Rate 4 12/03/24 13:17 12/02/24 12/03/24 12/03/24 22:59 06:59 14:59 Intake Total 100 / 620 100 / 720 1196.667 / 1196.667 Output Total 250 / 350 Balance -150 / 270 100 / 370 1196.667 / 1196.667 Weight last 48 hrs Weight 54 kg Physical Exam 2 Const: COMMON NORMALS: no acute distress, average body habitus, patient oriented x3 and no limitations HENMT: COMMON NORMALS: normocephalic and atraumatic HEAD & SCALP: n ormocephalic and atraumatic Eye: COMMON NORMALS: EOMs intact bilaterally and no scleral icterus Neck/C-Spine: COMMON NORMALS: full ROM and no JVD Resp: COMMON NORMALS: normal respiratory effort and clear to auscultation bilaterally AUSCULTATION: clear to auscultation bilaterally Cardio: COMMON NORMALS: no JVD, regular rate, regular rhythm, S1 normal heart sound present and S2 normal heart sound present RATE: regular rate RHYTHM: regular rhythm HEART SOUNDS: S1 normal heart sound present and S2 normal heart sound present GI: COMMON NORMALS: Soft to palpation and non-tender PALPATION: Yes Soft to palpation Extremity: COMMON NORMALS: normal to inspection and no pedal edema Neuro: COMMON NORMALS: patient oriented x3 and no focal motor deficits Psych: COMMON NORMALS: mental status grossly normal Skin: COMMON NORMALS: no rashes or lesions noted GENERAL SKIN EXAM: no rashes or lesions noted Urinary Catheter Management: Maldonado: Cath Placed During This Visit: yes Reason for Continuing Indwelling Catheter: Accurate Measurement of Urinary Output in Critically Ill Patients Urinary Catheter Date of Insertion: 11/28/24 Urinary Catheter Time of Insertion: 01:25 Data 12/03/24 03:30 12/03/24 03:30 Micro: Microbiology 11/27/24 16:38 Blood Culture - Final Blood NO GROWTH AFTER 5 DAYS 11/27/24 16:33 Blood Culture - Final Blood NO GROWTH AFTER 5 DAYS A&P Assessment and plan (1) Acute kidney injury: BK- Her bk is likely due to atn secondary to infection/sepsis and contrast induced nephropathy. Her creatinine is improving and she is non-oliguric with stable lytes. - I will change ivf to LR. There is no acute indication for renal replacement therapy at this time. - avoid further nephrotoxic agents acute on chronic hypoxic respiratory failure- improved. Likely due to pneumonia sepsis- likely due to pneumonia. on merrem per the primary service acidosis- due to lactate and initially improved with ivf. her acidosis is now likely due to her bk. improved. i will stop iv bicarb myastenia gravis metastatic squamous cell carcinoma of head/neck PDMP PDMP Reviewed: Not Reviewed Attestations 2 Medical Necessity Statement*: bk Time Spent in Patient Care: 25 minutes Coding Level of Care Code Acute Code for [facility] Diagnoses Acute kidney injury N17.9
--- NOTE | 2024-12-03 14:39 | XRR_ITS ---
PROCEDURE INFORMATION: Exam: XR Chest Exam date and time: 12/03/2024 3:48 PM Age: 74 years old Clinical indication: Other: Hypoxia TECHNIQUE: Imaging protocol: Radiologic exam of the chest. Views: 1 view. COMPARISON: CR (CHEST, ) 12/01/2024 10:07 PM FINDINGS: Tubes, catheters and devices: Central venous access catheter or port on the left is unchanged in position. Lungs: Emphysematous change. Continued findings of coarse interstitial markings right lung base and ill-defined opacity with coarse interstitial markings lower left lung. Small nodule again noted left upper lobe. Pleural spaces: Small left basilar effusion again noted. No pneumothorax. Heart/Mediastinum: Mild cardiomegaly. Bones/joints: Visualized osseous structures show no acute abnormality. XR/XR chest 1V portable [id number] IMPRESSION: Compared with 12/01/2024 exam, no significant interval change is seen. Continued findings of emphysematous change with coarse interstitial markings right lung base and ill-defined opacity with coarse interstitial markings lower left lung and small left basilar effusion.
[2024-12-03 16:11] LABS: C.Diff PCR (Lab) POSITIVE (Negative)
[2024-12-03 16:40] LABS: Glucose Point of Care 178 mg/dL (70-110)
[2024-12-03] MEDS: fidaxomicin 200 mg Tablet PO (17:34)
[2024-12-03] MEDS: lactated ringers 1,000 ML 50 ML IV (17:35)
[2024-12-03] MEDS: LORazepam 1 mg Tablet 0.5 MG PO (18:56)
[2024-12-03 21:47] LABS: Glucose Point of Care 171 mg/dL (70-110)
[2024-12-03] MEDS: heparin 5,000 unit/mL INJ 1 mL 5000 UNIT SUBCUT (21:50)
[2024-12-03] MEDS: quetiapine 25 mg Tablet PO (21:50)
[2024-12-04] VITALS (17 sets, daily range): BP systolic 130–181; BP diastolic 84–109; PULSE 68–97; RESP 14–25; TEMP 35.9–36.5; O2SAT 5–96
[2024-12-04] MEDS: ipratropium-albuterol 3 mL Neb INHALATION ×4 (03:35→21:49)
[2024-12-04] MEDS: morphine 4 mg/mL SDV 1 mL 2 MG IVP ×4 (03:47→18:55)
[2024-12-04] MEDS: oxyCODONE 5 mg IR Tab/Cap PO ×2 (04:28→12:32)
[2024-12-04] MEDS: LORazepam 1 mg Tablet 0.5 MG PO (05:54)
[2024-12-04 06:23] LABS: Glucose Point of Care 159 mg/dL (70-110)
[2024-12-04 06:46] LABS: Basophils % 0.1 %; Lymphocytes # 0.9 10^3/uL (0.8-4.8); Mean Corpuscular HGB Conc 29.7 g/dL (30-55); Mean Corpuscular Hemoglobin 24.3 pg (27-33); Mean Corpuscular Volume 81.7 fl (85-98); Mean Platelet Volume 12.6 fL (7.4-10.4); Monocytes # 1.2 10^3/uL (0.2-0.9); Monocytes % 6.8 %; Neutrophils # 15.45 10^3/uL (1.8-7.7); Neutrophils % 86.9 %; Nucleated Red Blood Cells # 0.5 /100WBC; Nucleated Red Blood Cells % 2.8 %; Platelet Count 253 10^3/cmm (157-399); Red Blood Count 4.65 10^6/uL (3.85-5.65); Red Cell Distribution Width 17.4 % (12.1-15.1); White Blood Count 17.77 10^3/uL (3.29-11.43)
[2024-12-04 07:01] LABS: INR 1.55 (0.8-1.2)
[2024-12-04 07:09] LABS: Alanine Aminotransferase 100 U/L (0-33); Albumin Level 4.6 g/dL (3.5-5.2); Alkaline Phosphatase 164 U/L (35-105); Anion Gap 20.6 (5-19); Aspartate Amino Transferase 37 U/L (0-32); Blood Urea Nitrogen 72 mg/dL (8-23); Calcium 8.8 mg/dL (8.5-10.5); Carbon Dioxide 23 mmol/L (22-29); Chloride 106 mmol/L (98-107); Creatinine Clr Calc Pharmacy 22.6551; Globulin 2.3 g/dL (1.3-4.6); Glucose 148 mg/dL (65-115); Osmolality Calculated 324 mOsm/kg (285-295); Potassium 4.6 mmol/L (3.5-5.1); Sodium 145 mmol/L (136-145); Total Bilirubin 1.3 mg/dL (0.15-1.2); Total Protein 6.9 g/dL (6.6-8.7)
[2024-12-04] MEDS: budesonide 0.5 mg/2 mL Neb INHALATION ×2 (08:43→21:49)
[2024-12-04] MEDS: albumin 25 G/100 ML BAG 60 G IV ×2 (09:49→18:47)
[2024-12-04] MEDS: meropenem 1,000 mg SDV 1000 MG IVP ×2 (09:49→20:41)
[2024-12-04] MEDS: aspirin 81 mg EC Tablet PO (09:49)
[2024-12-04] MEDS: methylPREDNISolone sod succ 40 mg/mL INJ IVP (09:49)
[2024-12-04] MEDS: heparin 5,000 unit/mL INJ 1 mL 5000 UNIT SUBCUT ×2 (09:49→20:41)
[2024-12-04] MEDS: folic acid 1 mg Tablet PO (09:49)
[2024-12-04] MEDS: pantoprazole DR 40 mg Tablet PO (09:49)
[2024-12-04] MEDS: pyridostigmine 60 mg Tablet PO ×4 (09:50→20:42)
[2024-12-04] MEDS: calcium carbonate 600 mg Tablet PO (09:50)
[2024-12-04] MEDS: fidaxomicin 200 mg Tablet PO ×2 (09:52→18:47)
[2024-12-04] MEDS: metoprolol tartrate 25 mg Tablet PO ×2 (09:52→20:41)
--- NOTE | 2024-12-04 10:22 | CT_ITS ---
WS: [id number] CT HEAD NONCONTRAST HISTORY: Headache TECHNIQUE: Contiguous axial imaging performed through the brain. Bone and soft tissue windows. Sagittal and coronal reformats reviewed. All CT scans at [facility] use at least one of these dose optimization techniques: automated exposure control; mA and/or kV adjustment per patient size (includes targeted exams where dose is matched to clinical indication); or iterative reconstruction. DLP: 1108.29 mGy.cm COMPARISON: None available. No acute intracranial hemorrhage, midline shift or mass effect. Moderate atrophy and small vessel disease. Prior lacunar infarct versus perivascular space RIGHT basal ganglia. No large territory infarct. Moderate cerebellar atrophy. Ventricles: Normal size with no hydrocephalus. No inferior displacement of cerebellar tonsils. Paranasal sinuses: Significant movement and motion artifact. Mastoid air cells: Movement and motion artifact. Calvarium and scalp: Movement and motion artifact. CT/CT head wo con* [id number] IMPRESSION: 1. No acute intracranial hemorrhage or edema. 2. Study limited by motion. 3. Moderate atrophy and small vessel disease.
--- NOTE | 2024-12-04 10:22 | CT_ITS ---
WS: [id number] CT ABDOMEN AND PELVIS NONCONTRAST HISTORY: Abd pain TECHNIQUE: Imaging performed through the abdomen and pelvis. Coronal and sagittal reformats are submitted. All CT scans at [facility] use at least one of these dose optimization techniques: automated exposure control; mA and/or kV adjustment per patient size (includes targeted exams where dose is matched to clinical indication); or iterative reconstruction. DLP: 535.09 mGy.cm COMPARISON: Prior CT 11/27/2024 Lower thorax: Small bilateral pleural effusions, slightly greater on the LEFT, LEFT effusion may be slightly loculated. Moderate enlargement of the heart. Small hiatal hernia. Liver: Normal size with hepatic steatosis. Gallbladder: Gallbladder distended and increased density from vicarious excretion of contrast from a prior CT contrast exam. There is gallbladder wall edema. No common bile duct dilatation. Pancreas: Limited visualization. Spleen: Normal. Adrenal glands: Normal. No mass. Right kidney: Normal size kidney with no mass or hydronephrosis. Left kidney: Normal size kidney with no mass or hydronephrosis. Aorta: Dense calcification throughout the abdominal aorta and iliac arteries. No enlarged lymph nodes are identified. Adenopathy would be difficult to completely exclude due to the lack of contrast and motion. There is extensive soft tissue edema and anasarca. Small amount of diffuse ascites throughout the abdomen and pelvis. Diffuse mesenteric edema. GI tract: No obstructive pattern. Abdominal wall: No hernia. Pelvis: Maldonado catheter in a nondistended bladder. Osseous structures: RIGHT femoral head replacement. CT/CT abdomen pelvis wo con [id number] IMPRESSION: 1. Severe anasarca and soft tissue edema. Significantly progressed since 2024. 2. Examination is limited by motion and lack of IV contrast. 3. Small bilateral pleural effusions, LEFT greater than RIGHT. LEFT is slightl y loculated. 4. Diffuse mesenteric edema and a small amount of ascites. 5. No renal obstruction. 6. Edema surrounds the gallbladder is likely due to ascites and mesenteric ned ma.
--- NOTE | 2024-12-04 10:22 | CT_ITS ---
WS: [id number] CT NECK NONCONTRAST HISTORY: Pain and difficulty swallowing TECHNIQUE: Contiguous 2 mm axial images are performed through the neck without intravenous contrast. Sagittal and coronal reformats are also submitted. All CT scans at [facility] use at least one of these dose optimization techniques: automated exposure control; mA and/or kV adjustment per patient size (includes targeted exams where dose is matched to clinical indication); or iterative reconstruction. CONTRAST: CONTRAST: None DLP: 334.94 mGy.cm COMPARISON: None available. Nearly nondiagnostic evaluation due to extensive motion artifact. Patient is unable to follow directions. There is extensive motion artifact. The airway appears patent. Mass would be difficult to exclude. Adenopathy would be difficult to exclude. Extensive calcifications of the carotid arteries. Emphys ematous changes at the lung apices. CT/CT neck wo con [id number] IMPRESSION: Essentially nondiagnostic neck CT due to motion. The airway is patent. Otherwis e very little diagnostic information can be gathered from this exam.
[2024-12-04 11:34] LABS: Glucose Point of Care 152 mg/dL (70-110)
[2024-12-04] MEDS: midodrine 5 mg TABLET 10 MG PO ×2 (12:32→18:47)
[2024-12-04] MEDS: lactated ringers 1,000 ML 50 ML IV (12:35)
--- NOTE | 2024-12-04 14:20 | P.PN_ITS ---
Subjective 2 Subjective: Patient is lethargic on 4L m Medications: Reviewed: Yes Vitals/I&O/Wt Last Vital Signs Temp 96.7 F L 12/04/24 11:39 Pulse 68 12/04/24 13:58 Resp 18 12/04/24 13:58 BP 158/96 12/04/24 11:39 Pulse Ox 85 L 12/04/24 13:58 O2 Del Method Room Air 12/04/24 13:58 O2 Flow Rate 4 12/04/24 08:00 12/03/24 12/04/24 12/04/24 22:59 06:59 14:59 Intake Total 100 / 2875.364 1702 / 1050 Output Total 420 / 420 325 / 745 Balance -320 / 1144.167 -325 / 921.940 2781 / 1050 Weight last 48 hrs Weight 54 kg Physical Exam 2 Const: COMMON NORMALS: no acute distress GENERAL APPEARANCE: comfortable and lethargic ORIENTATION/CONSCIOUSNESS: Yes lethargic HENMT: COMMON NORMALS: normocephalic and atraumatic HEAD & SCALP: n ormocephalic and atraumatic Eye: COMMON NORMALS: Equal, round and reactive pupils present and EOMs intact bilaterally PUPIL: Yes Equal, round and reactive pupils present Neck/C-Spine: COMMON NORMALS: full ROM and no JVD Resp: COMMON NORMALS: normal respiratory effort AUSCULTATION: diminished lung sounds Cardio: COMMON NORMALS: no JVD, regular rate, regular rhythm, S1 normal heart sound present and S2 normal heart sound present RATE: regular rate RHYTHM: regular rhythm HEART SOUNDS: S1 normal heart sound present and S2 normal heart sound present GI: COMMON NORMALS: Soft to palpation and non-tender PALPATION: Yes Soft to palpation Extremity: COMMON NORMALS: normal to inspection and no pedal edema Neuro: SENSORIUM/ORIENTATION: Yes lethargic Psych: OTHER: lethargic Skin: COMMON NORMALS: no rashes or lesions noted GENERAL SKIN EXAM: no rashes or lesions noted Urinary Catheter Management: Maldonado: Cath Placed During This Visit: yes Reason for Continuing Indwelling Catheter: Accurate Measurement of Urinary Output in Critically Ill Patients Urinary Catheter Date of Insertion: 11/28/24 Urinary Catheter Time of Insertion: 01:25 Data 12/04/24 06:17 12/04/24 06:17 A&P Assessment and plan (1) Acute kidney injury: BK- Her bk is likely due to atn secondary to infection/sepsis and contrast induced nephropathy. Her creatinine is improving and she is non-oliguric with stable lytes. - I will cont ivf. There is no acute indication for renal replacement therapy at this time. - avoid further nephrotoxic agents acute on chronic hypoxic respiratory failure- improved. Likely due to pneumonia sepsis- likely due to pneumonia. on merrem per the primary service acidosis- due to lactate and initially improved with ivf. her acidosis is now likely due to her bk. improved with iv bicarb myastenia gravis metastatic squamous cell carcinoma of head/neck PDMP PDMP Reviewed: Not Reviewed Attestations 2 Medical Necessity Statement*: bk Time Spent in Patient Care: 25 minutes Coding Level of Care Code Acute Code for [facility] Diagnoses Acute kidney injury N17.9
[2024-12-04] MEDS: FUROsemide 10 mg/mL SDV 4mL 40 MG IVP (14:24)
[2024-12-04] MEDS: lidocaine 5% Patch 1 PATCH TOPICAL (14:25)
--- NOTE | 2024-12-04 14:44 | PM.PN ---
Subjective Subjective: No acute vents overnight. Today morning patient seen multiple times. Seen with family at bedside. Patient continues to remain altered and confused. Not able to answer but following some simple directions. Continue to moan and groan during examination. Not able to exactly tell where she is hurting though she continues to rub multiple parts of her body including her neck, arm, belly. Vitals/I&O/Wt Last Vital Signs Temp 96.7 F L 12/04/24 11:39 Pulse 68 12/04/24 13:58 Resp 16 12/04/24 14:25 BP 158/96 12/04/24 11:39 Pulse Ox 85 L 12/04/24 13:58 O2 Del Method Room Air 12/04/24 13:58 O2 Flow Rate 4 12/04/24 08:00 12/03/24 12/04/24 12/04/24 22:59 06:59 14:59 Intake Total 100 / 5541.815 3931 / 1050 Output Total 420 / 420 325 / 745 Balance -320 / 1144.167 -325 / 254.270 1177 / 1050 Weight last 48 hrs Weight 54 kg Physical Exam Narrative: General: In distress, moaning and groaning on examination, AO x 1 to 2, able to follow directions Head: Temporal wasting. Neck: No JVD. Cardiovascular: RRR. No gallops. No murmurs. Lungs: Persistently poor air movement. Bronchial breath into lower lung ness with coarse tremor present bilaterally left more than right tachypneic. On supplemental support. Skin: No jaundice. No rashes. Abdomen: Hypoactive bowel sounds, abdomen soft and Mild tenderness in right upper quadrant. Extremities: No cyanosis or clubbing. Musculoskeletal: No swollen or erythematous joints. Neurological: Moves all 4 extremities. No myoclonus. Urinary Catheter Management: Maldonado: Cath Placed During This Visit: yes Reason for Continuing Indwelling Catheter: Accurate Measurement of Urinary Output in Critically Ill Patients Urinary Catheter Date of Insertion: 11/28/24 Urinary Catheter Time of Insertion: : Data 12/04/24 06:17 12/04/24 06:17 A&P Assessment and plan (1) Delirium: Acute on chronic delirium. Worsening in setting of uremia, BK, sepsis along with acute illness. Patient continues to remain delirious even though uremia and BK is improving. Continues to moan and groan in pain. Not able to tell exact location or reason for pain. Moaning and groaning could be in setting of delirium. For now we will check CT neck, CT abdomen pelvis without contrast for further evaluation. No thrush present in the oral cavity. Medical reconciliation done. Continue with home dose of oxycodone, lorazepam as needed. Pyridostigmine continue at home dose. Medical reconciliation done. Continue with home medications as possible. Continue with Seroquel 25 mg oral nightly. (2) Clostridium difficile colitis: C. difficile positive. Start on fidaxomicin 200 mg twice daily. Continue to monitor for bowel movements. (3) Severe sepsis: Endorgan damage: Acute on chronic hypoxic respiratory failure, severely elevated lactic acid, acute kidney injury with transaminitis Source: Left sided pneumonia Bacterial antigens negative, sputum culture negative. Repeat sputum culture. Follow-up urine culture results. BCx NGTD Goal blood pressure less than 140/90 mmhg with mean over 65. Continue broad-spectrum antibiotics with cefepime (11/27-11/30). Continue with IV meropenem 1 mg every 12 hours as per creatinine clearance. Will plan to finish a 5 to 7-day course. Last dose of antibiotic on 12/06. MRSA swab negative. (4) Acute kidney injury: Oliguric acute kidney injury likely in setting of sepsis along with [facility] on board. Minimal urine output. Patient now developing hyperkalemia and metabolic acidosis. Urine output slightly improving. Continue fluid at 50 cc/h. Monitor for fluid overload as well. Renal functions continue to improve. Creatinine down to 1.9. BUN down to 72. No electrolyte abnormality. No acidosis today. Repetitive order urine output within next 24 hours we will plan to give 1 dose of IV Lasix. Patient overall around 3 L positive. Discussed in detail with product marketing manager. If patient continues to have worsening uremia, oliguria, electrode abnormalities patient will most likely need hemodialysis. Discussed in detail with patient's son/DPOA. He is agreeable to dialysis if needed. Repeat BMP in evening to monitor for potassium levels. Strict input charting, daily weights. Appreciate renal ultrasound. (5) Pneumonia, community acquired: Left-sided community-acquired pneumonia Bacterial antigens are negative Aggressive pulmonary toilet with incentive spirometry. Antibiotics as above. Does have parapneumonic effusion. Cannot rule out empyema given prolonged leukocytosis. Did not find enough fluid for safe tapping aspiration radiology department. (6) Acute on chronic hypoxic respiratory failure: Acute on chronic hypoxic respiratory failure, baseline O2 is 4 L at home Currently on 6 L. Will plan to wean accordingly keeping saturation over 88%. (7) COPD (chronic obstructive pulmonary disease): Acute COPD exacerbation, advanced emphysema Wean Solu-Medrol Pulmicort twice daily, DuoNeb every 6 hour. Qualifiers: COPD type: chronic bronchitis Chronic bronchitis type: simple Qualified Code(s): J41.0 - Simple chronic bronchitis (8) Transaminitis: (9) Hyperkalemia: (10) Uremia: (11) Metabolic acidosis: (12) Pulmonary hypertension: Echo showed normal RV function Continue supplemental oxygen (13) Elevated troponin: Transthoracic echocardiogram reviewed, there is hypokinesis of the mid distal anterior/anteroseptal wall segments, LVEF 50%, RV function normal Continues telemetry monitoring Finished 48 hours of heparin drip. Transition to prophylactic dose. Denies any chest pain. Continue with aspirin, beta-akash. Holding off on statin given transaminitis. Monitor blood pressures. Patient would benefit with outpatient ACS workup with Lexiscan stress test once clinically improved. (14) Myasthenia gravis: Myasthenia gravis Neurology evaluated on admission. Steroid as above. Continue with home dose of pyridostigmine. 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 As per patient sister she is usually dependent for ADLs on the sister and patient's son. Usually she is spending most of her day in the couch. She is due for getting radiation therapy for lung cancer. Discussed unfortunately patient has significant debilitation and deconditioning of worsening her quality of life due to current illness, multiorgan dysfunction with acute kidney injury with poor urine output with worsening uremia leading to possible confusion, liver dysfunction. Discussed further goals of care with options of hospice versus continuation of current treatment though also discussed there is a high chance that patient would not come back to her baseline quality of life which to start with was poor. Discussed that there is a high chance patient would need hemodialysis. Patient son is the DPOA. Have requested patient's son to be present in hospital within next 24 hours for a possible goals of care. As per patient sister they will both be present tomorrow to discuss further goals of care. 12/02: Had extensive goals of care discussion at bedside with patient's sister and son who is also the DPOA. We discussed about patient's quality of life, severe deconditioning, multiorgan dysfunction with current sepsis, possible need of dialysis, delirium/poor mentation currently because of acute on chronic conditions. Family verbalized understanding and wants to continue with aggressive medical management as needed. They are agreeable for dialysis as needed. Discussed about safe discharge planning. Discussed that patient unfortunately has gotten fairly weak and would possibly need SNF placement for safe discharge planning. They are agreeable. Will get PT evaluation. 12/04: Had again extensive goals of care discussion with sister at bedside. We discussed patient seems to continue to remain delirious even though her uremia and BK is resolving. Discussed that LFTs are also resolving. We discussed unfortunately patient is not able to participate with physical therapy or is able to follow very directions currently. Discussed patient seems to be in pain though not able to tell where the pain is. We are getting imaging done today to see if we can localize the reason for pain if not then moaning and groaning could be a part of delirium as well. Discussed possibility of delayed or no improvement in her delirium given her current state and chronic conditions. Discussed possibility options of hospice versus continuing care. Sister wants to see if we can make patient as comfortable as possible. We discussed that currently she is on pain medication but we cannot increase the pain and anxiety medication to avoid respiratory arrest. Verbalized Understanding and Wants to Wait till Saturday to Have Another Family Meeting with Patient's DPOA at Bedside As Well before Making Any Further Decisions. If patient does not improve her delirium by Saturday they would possibly try to go hospice. Plan Transaminitis: Cannot rule out hepatorenal syndrome. Mild improvement in AST and ALT. Alkaline phosphatase elevated and stable. HIDA scan and MRCP appreciated. Low concerns for cholecystitis. Normal bilirubin levels. Discussed in detail with surgical team. Negative hepatitis panel. Continue to monitor. Cannot rule out hepatorenal syndrome. Continue with midodrine 10 mg 3 times daily along with IV albumin every 8 hourly. Delirium: Could be in setting of uremia versus in setting of sepsis. Normal ammonia levels. Frequent reorientation. Sitter if needed. Renal nondialysis diet. Heparin 5000 Q12 hourly for DVT prophylaxis CODE STATUS: DNR and DNI-confirmed with patient. Plan for the day: Renal functions improving. Appreciate CT abdomen pelvis and chest results. Appreciate CT neck results. Concern for mild anasarca. Continue with current IV fluids at 50 cc/h. IV Lasix 40 mg one-time. Patient continues to remain delirious. Frequent reorientation. Fall precaution. Aspiration precaution. Advance diet as per speech evaluation as possible. If continues to remain n.p.o. can plan for TPN depending on goals of care. Continue with fidaxomicin 200 mg twice daily. IV meropenem with last dose on 12/06. Wean oxygen supplementation keeping saturation over 90%. Currently stable on 5 L. Continue with current nebulization treatment. Wean Solu-Medrol to 40 mg IV daily. Will plan to wean further in next 24 hours. Continue with midodrine 10 mg 3 times daily. Change albumin to twice daily. Concern for hepatorenal syndrome. PDMP PDMP Reviewed: Last Reviewed 12/04/24 15:08 by Joseph River MD Attestations Medical Necessity Statement*: Requires further hospitalization for management of delirium in setting of uremia, BK, transaminitis and a patient originally admitted for severe sepsis in setting of left lower lobe pneumonia, baseline lung cancer with severe protein energy malnutrition while further goals of care discussions are done Diagnoses Delirium R41.0 Clostridium difficile colitis A04.72 Severe sepsis A41.9; R65.20 Acute kidney injury N17.9 Pneumonia, community acquired J18.9 Acute on chronic hypoxic respiratory failure J96.21 Simple chronic bronchitis J41.0 COPD type: chronic bronchitis Chronic bronchitis type: simple Transaminitis R74.01 Hyperkalemia E87.5 Uremia N19 Metabolic acidosis E87.20 Pulmonary hypertension I27.20 Elevated troponin R79.89 Myasthenia gravis G70.00 Metastatic squamous cell carcinoma Muscle wasting M62.50 Goals of care, counseling/discussion Z71.89
--- NOTE | 2024-12-04 14:55 | PC.OT ---
Pt seen for OT evaluation with patient unable to respond to commands and unable to state name, where she is, nor day of the week. Pt is not appropriate for therapy at this time; will re-evaluate pt again at later time pending patient improvement.
--- NOTE | 2024-12-04 15:42 | PC.SOCIAL ---
IMM updated IMM dated and initialed, copy given to patient and copy placed in chart
[2024-12-04 16:39] LABS: Glucose Point of Care 115 mg/dL (70-110)
[2024-12-04] MEDS: quetiapine 25 mg Tablet PO (20:42)
--- NOTE | 2024-12-04 21:10 | PC.NURSE ---
PATIENT CHANGE IN CONDITION: This nurse heard continuous pulse ox from nurses station and presented to bedside to assess patient. Patient presented cyanotic with agonal breathing which was not present upon prior initial assessment. Charge nurse and RT notified. Unable to obtain pulse oximetry and blood pressure at this time. Dr Farias notifed of patient's change in condition at 2135 and code status was AND. This nurse requested physician to come to the floor to see patient. Patient's son notified of change in status and he stated we do not want her to suffer. I will call my aunt. Physician to floor to see patient and gave orders to IV fluid bolus, place patient on BiPap, obtain ABG, and initiate Levophed drip and transfer patient to ICU. Levophed drip initiated by LAURA Carl from ICU at 2200. Patient placed on BiPap by RT. Gregn transferred to ICU at 2234 via bed and on BiPap by this nurse and RT. Beside report was given to LAURA Brown. All questions answered at this time. All personal belongings were transferred with patient.
[2024-12-04 21:38] LABS: ABG PH Result 7.17 (7.35-7.45); Alveolar-Arterial Oxygen Gradi 4.3 mmHg (5-10); Arterial Blood Gas Hematocrit 38.3 % (37-47); Blood Gas Allen Test Pos; Blood Gas Operator Identificat MONRO; Blood Gas Sample Site Radial, left; Blood Gas Sample Type Arterial; HCO3 ABG 12.6 mmol/L (22-26); HGB O2 Sat 86.2 % (95-100); Ionized Calcium Level - ABG 1.1 mmol/L (1.1-1.4); Methemoglobin 0.2 % (0.4-1.5); Oxygen Device OXY MASK; Oxygen Saturation ABG 87.2; PO2 ABG 72.2 mmHg (80.0-100.0); Potassium Level - ABG 5.4 mmol/L (3.5-5.0); Total Hemoglobin 12.5 g/dL (12-16)
[2024-12-04] MEDS: glucagon 1 mg/mL KIT 1 mL IM (21:53)
--- NOTE | 2024-12-04 22:05 | W.PM.EVENTAC ---
Event Note Event Note: Critical event: Nurse asked me to evaluate patient at bedside Patient was showing signs of skin mottling, blood pressure nondetectable, ABG showed metabolic acidosis, requested lactic acid, IV fluids which were running at the bedside I asked the nurse to run as IV fluid bolus 700 mL left in the back Patient is oriented to herself, she is raising her arms but not able to follow commands at all She is encephalopathic GCS below 8 I have requested Levophed to be started on the MedSurg while waiting for ICU bed, I called son who is okay with BiPAP and Levophed with IV fluids for now stating that in case she deteriorates further they would opt for comfort care, he is going to talk with rest of the family member, planning to come in
[2024-12-04] MEDS: norepinephrine 4 MG/250 ML BAG 75 MG IV (22:07)
--- NOTE | 2024-12-04 22:08 | PC.NURSE ---
Levophed Patient extremely cyanotic, no blood pressure able to be obtained automatically or manually, pulses weak and thready. Levophed started at 20 mcg/min, Dr. Farias approved.
[2024-12-04 22:34] LABS: Glucose Point of Care 62 mg/dL (70-110)
--- NOTE | 2024-12-04 22:47 | PC.NURSE ---
Pt arrived at 2234, bedside report rec. from LAURA Elias. Pt on bipap 100% fio2, hr 97, levophed @ 20 mcg/min. Nursing staff changed BP cuff to small size and BP registered at 165/105. Radial Pulses still faint.
[2024-12-04 23:20] LABS: Lactic Sepsis W/Reflex 12.1 mmol/L (0.5-2.2)
--- NOTE | 2024-12-04 23:25 | PC.NURSE ---
Pt son called. He stated he was not able to drive and would not be coming tonight. Pt son asked, Is it that serious? This nurse proceeded to explain the patient's condition. Son Asked this nurse to call Pt's sister. She did not answer, voicemail was left. Son was contacted again, and stated he would like pt to be placed on comfort care. Dr. Farias notified.
[2024-12-05] VITALS: BP 138/91; PULSE 94; RESP 20; O2SAT 66
[2024-12-05] MEDS: morphine 4 mg/mL SDV 1 mL IVP ×2 (00:14→00:30)
[2024-12-05 00:30] VITALS: BP 94/37; PULSE 65; RESP 21
[2024-12-05 00:38] LABS: Reflex Lactate Order REFLEX LACTIC ORDERD
[2024-12-05 01:00] VITALS: PULSE 0; RESP 6
--- NOTE | 2024-12-05 01:31 | PC.NURSE ---
Pt heart rate decresed and eventually showed asystole on the monitor. This nurse listened for 1 minute for apical heart rate. None was heard. Antionette RN and Mireya RN also verified that no heart beat was present. Pt TOD 0100. Dr. Farias notified. Pt son, Mejia Gonzalez, notified and informed this nurse that [facility] in [place] was the preferred home. LAURA Jerome verified that this was the correct location.
--- NOTE | 2024-12-05 01:42 | PC.NURSE ---
[facility] contacted; patient not a candidate per food service sales representatives Todd Melton. [facility] to contact with donor viability status. Referral number [id number].
--- NOTE | 2024-12-05 02:55 | PC.NURSE ---
[facility] Patient not a [facility] candidate per electronics parts sales representative Aggie.
--- NOTE | 2024-12-05 05:49 | PC.NURSE ---
Pt medication still in pyxis. Will consult pharmacy when they arrive in-house to discuss what to do with controlled medications.
--- NOTE | 2024-12-05 06:26 | PC.NURSE ---
Pt home medicines (ativan and oxycodone) were left in ICU pyxis. Kojo in pharmacy was contacted and stated that he would come down later in the morning and get the medicines to dispose of them.Dayshift charge, JASSI, was told this information.
--- NOTE | 2024-12-05 18:22 | P.DES_ITS ---
Discharge Providers DDS Date of Admission: 11/27/24 18:37 Date Summary Completed: 12/05/24 Attending Provider at Admission: Sky Burrows MD Time of : 01:00 Attending Provider at Discharge: Joseph River MD Primary Care Provider: DO DAISHA Yin Diagnoses Hospital Diagnoses (1) Delirium: (2) Clostridium difficile colitis: (3) Severe sepsis: (4) Acute kidney injury: (5) Pneumonia, community acquired: (6) Acute on chronic hypoxic respiratory failure: (7) COPD (chronic obstructive pulmonary disease): Qualifiers: COPD type: chronic bronchitis Chronic bronchitis type: simple Qualified Code(s): J41.0 - Simple chronic bronchitis (8) Transaminitis: (9) Hyperkalemia: (10) Uremia: (11) Metabolic acidosis: (12) Pulmonary hypertension: (13) Elevated troponin: (14) Myasthenia gravis: (15) Metastatic squamous cell carcinoma: (16) Muscle wasting: (17) Goals of care, counseling/discussion: Reason for Visit Reason for Visit SOB Brief History: History as per HPI: Darling Gonzalez is a 74 year old female with a past medical history significant for fairly recently diagnosed 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 She reports symptoms for 2 to 3 days. Exertion worsens symptoms. Rest improves. She notes today that the symptoms have been the worst. Endorses associated severe weakness. She states she was too sick to get up and eat today. She was too sick to do most of her ADLs today. She does live alone but has a sister and son who live close by and help her. She called out to her sister for help today who convinced her to come to the emergency department. In the emergency department, she was found to be severely septic. She was found to be in respiratory distress with acute on chronic hypoxic respiratory failure. Chest x-ray with pneumonia. CT PE of attained with radiology read pending; per my read there is severe emphysema with left basilar pneumonia present. Labs show sequela of severe sepsis with leukocytosis, hyperkalemia, metabolic acidosis, severe lactic acidosis of 6.4, transaminitis, and elevated troponins. Patient seen and evaluated initially with Dr. Krishnan. He began conversations regarding intubation due to respiratory compromise. Assisted with goals of care conversation in the ED. After prolonged discussion, patient ultimately decided to pursue DNR/DNI status. There is currently no other limitations of care. She is okay with noninvasive mechanical ventilation's another resuscitation efforts other than DNI and DNR. She has have myasthenia gravis. She follows with neurology. She is concerned that there could be a component of myasthenia gravis flare for which neurology evaluated the patient. Notes and recommendation are pending. Summary Date and Time of Date of : 12/05/24 Time of : 01:00 Summary Summary: Patient was admitted to the hospital further evaluation and management of severe sepsis in setting of left lower lobe pneumonia. She was started on broad-spec trum IV antibiotics. Given concerns for baseline myasthenia gravis neurology was consulted on admission and she was started on IV steroids. On admission she was found to have elevated troponin for which at first she was started on a heparin drip. Cardiology was consulted. Echocardiogram was done which showed a normal EF without regional wall motion abnormality. She finished a 48-hour of heparin drip. Due to severe sepsis patient developed multiorgan dysfunction with transaminitis and acute kidney injury. Patient responded well to the treatment and her oxygen supplementation turned down to 4 to 5 L of oxygen supplementation with her baseline of 4 L. Various reasons for transaminitis including cholecystitis, acalculous cholecystitis were ruled out. Nephrology was consulted. Given persistent severe uremia, metabolic acidosis, hyperkalemia and acute kidney injury she was started on IV fluids after which her metabolic acidosis, uremia hyperkalemia and acute kidney injury gradually started improving. She was started on treatment with concerns for hepatorenal syndrome after which her transaminitis also steadily continued to improve. Even though her acute kidney injury and transaminitis was resolving her mentation continued to remain poor. There was a concern for severe delirium in setting of worsening baseline dementia due to acute illness. During hospitalization her blood culture remained negative, Urine culture remain negative. She was found to be positive for C. difficile for which she was started on fidaxomicin. As patient's mentation continued to remain poor, given her baseline poor quality of life multiple goals of care discussions were done with patient's sister and son who is also DPOA both on phone and at bedside. At first family wanted aggressive treatment which was continued but as patient did not make much improvement family meeting was set for Wednesday 12/06 to discuss further of patient's goals of care. On night of 12/04 patient had developed septic shock again with respiratory failure when she was found cyanotic with agonal breathing on the floor. Further goals of care discussions were done with patient's son/DPOA over the phone who decided patient to be transitioned over to comfort care. Eventually she on 12/05 at 1 AM and comfort care status. Additional Data Confirmation of as documented by pronouncing clinician: no pulse and no respirations Family: contacted Additional persons at bedside: nursing staff Attending/PCP notified?: I am attending Was code activated?: No Autopsy requested?: No Advance directives?: No Hospice patient?: Yes Discharge Plan Discharge Patient Disposition: At Medical Facility Condition: Stable Prescriptions: No Action albuterol sulfate 2.5 mg /3 mL (0.083 %) solution for nebulization 2.5 mg inhalation QID PRN (Reason: shortness of breath or wheezing) Qty: 180 1RF (DME) nebulizer machine with tubing and delivery device See Rx Instructions .Route .MEDSUPPLY Qty: 1 0RF Rx Instructions: As directed (DME) oxygen supplementation with portable concentrator See Rx Instructions .Route .MEDSUPPLY Qty: 1 0RF Rx Instructions: 2-4 liters of oxygen per NC continous for COPD Trelegy Ellipta 100-62.5-25 mcg blister with device 1 inh inhalation DAILY Qty: 28 0RF calcium carbonate 600 mg calcium (1,500 mg) tablet 600 mg PO DAILY Qty: 90 3RF (DME) manual wheel Chair, leg rest, high back See Rx Instructions .Route .MEDSUPPLY Qty: 1 0RF Rx Instructions: needs for in home use and travel. length of need 99 months. Protonix 40 mg tablet,delayed release (DR/EC) 40 mg PO DAILY 30 Days Qty: 60 5RF Eliquis 5 mg tablet 5 mg PO BID Qty: 180 0RF albuterol sulfate 90 mcg/actuation HFA aerosol inhaler 1 inh inhalation Q6H PRN (Reason: shortness of breath or wheezing) Qty: 8.5 2RF krill oil 500 mg capsule 500 mg PO DAILY Qty: 90 4RF furosemide [Lasix] 20 mg tablet 20 mg PO .prn Qty: 7 0RF Rx Instructions: take 1 tablet as needed weight gain of 2 pounds in a day or 5 pounds per week folic acid 1 mg tablet 1 mg PO DAILY Qty: 30 5RF Klor-Con M20 20 mEq tablet,ER particles/crystals 30 meq PO DAILY 30 Days Qty: 45 5RF prochlorperazine maleate [Compazine] 10 mg tablet 10 mg PO Q4H PRN (Reason: mild nausea) Qty: 30 3RF lorazepam 1 mg tablet 0.5 - 1 mg PO Q6H PRN (Reason: severe nausea) Qty: 30 3RF pyridostigmine bromide [Mestinon] 60 mg tablet 60 mg PO QID oxycodone 5 mg tablet 5 mg PO Q8H PRN (Reason: pain) 5 Days Qty: 14 0RF Referrals: Solitario Gaffney DO [Primary Care Provider] - DS Attestations Time Spent in /Discharge Care*: greater than 30 min Quality - AMI: AMI present?: No Quality - Stroke: CVA present?: No Quality - VTE: VTE present?: No Coding Level of Care Code 70621 Total time (in minutes) for Discharge: 60 Diagnoses Delirium R41.0 Clostridium difficile colitis A04.72 Severe sepsis A41.9; R65.20 Acute kidney injury N17.9 Pneumonia, community acquired J18.9 Acute on chronic hypoxic respiratory failure J96.21 Simple chronic bronchitis J41.0 COPD type: chronic bronchitis Chronic bronchitis type: simple Transaminitis R74.01 Hyperkalemia E87.5 Uremia N19 Metabolic acidosis E87.20 Pulmonary hypertension I27.20 Elevated troponin R79.89 Myasthenia gravis G70.00 Metastatic squamous cell carcinoma Muscle wasting M62.50 Goals of care, counseling/discussion Z71.89
== END 2024-12-05 01:00 | disposition expired | DRG 871 ==
LOC: ER 15:46 → ICU 18:37 → MEDSURG 12-03 13:31 → ICU 12-04 22:42
PROVIDERS: Internal Medicine; Admitting Provider Internal Medicine; Emergency Provider Family Medicine; PCP Family Medicine; Visit Provider Student in an Organized Health Care Education/Training Program
DX: A41.9 Sepsis, unspecified organism (principal); E43 Unspecified severe protein-calorie malnutrition; J18.9 Pneumonia, unspecified organism; J96.21 Acute and chronic respiratory failure with hypoxia; N17.0 Acute kidney failure with tubular necrosis; R65.21 Severe sepsis with septic shock; G70.01 Myasthenia gravis with (acute) exacerbation; J44.0 Chronic obstructive pulmonary disease with (acute) lower respiratory infection; K50.90 Crohn's disease, unspecified, without complications; F03.92 Unspecified dementia, unspecified severity, with psychotic disturbance; F05 Delirium due to known physiological condition; E87.20 Acidosis, unspecified; A04.72 Enterocolitis due to Clostridium difficile, not specified as recurrent; C76.0 Malignant neoplasm of head, face and neck; C10.8 Malignant neoplasm of overlapping sites of oropharynx; M62.50 Muscle wasting and atrophy, not elsewhere classified, unspecified site; R65.20 Severe sepsis without septic shock; Z99.81 Dependence on supplemental oxygen; I27.20 Pulmonary hypertension, unspecified; E87.5 Hyperkalemia; Z79.01 Long term (current) use of anticoagulants; Z79.899 Other long term (current) drug therapy; Z87.891 Personal history of nicotine dependence; Z11.52 Encounter for screening for COVID-19; Z68.20 Body mass index [BMI] 20.0-20.9, adult; Z51.5 Encounter for palliative care; Z66 Do not resuscitate; R74.01 Elevation of levels of liver transaminase levels
CPT/HCPCS: 32555; 36415; 36416; 36591; 36600; 51702; 70450; 70490; 71045; 71275; 74176; 74177; 74181; 76604; 76700; 78227; 80048; 80051; 80053; 80069; 80074; 81001; 82140; 82330; 82436; 82550; 82575; 82607; 82746; 82805; 82962; 83036; 83540; 83550; 83605; 83735; 84100; 84132; 84133; 84145; 84300; 84443; 84484; 85025; 85610; 85730; 86140; 86403; 87040; 87086; 87493; 87637; 92523; 92526; 92610; 93005; 93308; 94640; 94660; 96365; 96372; 96374; 96375; 96376; 97110; 97161; 99285; A4570; A9537; J0692; J1100; J1610; J1644; J1815; J1940; J2060; J2185; J2270; J2405; J2543; J2919; J3370; J3490; J7040; J7050; J7070; J7120; J7613; J7626; J7799; J9999; P9046; Q3014